=== PATIENT | female | born 1955 | race Caucasian/White ===

== ENCOUNTER → 2017-09-30 15:34 | Outpatient (CLI) | payer BC, SELFPAY ==
[2017-09-30 17:53] LABS: Absolute Neutrophil Count 3.3 X10^3/uL (2.0-7.7); Basophil# 0.06 X10^3/uL; Basophil% 1.1 % (0-1); Eosinophil# 0.17 X10^3/uL; Hematocrit 39.6 % (37-47); Hemoglobin 13.1 g/dl (12.0-15.0); Lymphocyte % 23.3 % (19-41); Mean Corp Hgb Conc 33.1 g/gl (32-36); Mean Corpuscular Volume 90.6 fL (81-99); Mean Platelet Vol. 10.6 fl (6.2-12.0); Monocyte# 0.73 X10^3/uL; Monocyte% 13.1 % (0-10); Neutrophil # 3.32 X10^3/uL (2.7-7.7); Neutrophil % 59.3 % (47-70); Platelet Count 213 K/mm3 (150-450); RBC Distribution Width SD 46.2 fl (35.1-43.9); Red Blood Count 4.37 M/mm3 (4.2-5.4); White Blood Count 5.6 K/mm3 (4.4-11.0)
[2017-09-30 17:55] LABS: POSITIVE COUNT NO; POSITIVE DIFFERENTIAL NO; POSITIVE MORPHOLOGY NO
[2017-09-30 17:57] LABS: AST(SGOT) 31 U/L (15-37); Alanine Aminotransfer ALT/SGPT 27 U/L (13-56); Albumin, Serum 3.8 g/dL (3.2-5.0); Alkaline Phosphatase 77 U/L (45-117); BUN 24 mg/dL (7-18); Creatinine, Serum 0.84 mg/dL (0.55-1.02); EST Glomerular Filtration Rate 73 mL/min (>60); Est Glom Filt Rate - Afr Amer 88 mL/min (>60); Globulin 3.4 g/dL (2.2-4.2); Protein, Total 7.2 g/dL (6.4-8.2)
== END ==
PROVIDERS: Family Provider Family Medicine; PCP Family Medicine; Visit Provider Internal Medicine Rheumatology
DX: M06.9 Rheumatoid arthritis, unspecified (principal)
CPT/HCPCS: 36415; 80076; 82565; 84520; 85025

== ENCOUNTER → 2017-12-22 16:16 | Outpatient (CLI) | payer BC, SELFPAY ==
[2017-12-22 17:34] LABS: Absolute Lymphocyte Count 1.52 X10^3/ul (0.83-4.51); Basophil# 0.04 X10^3/uL; Basophil% 0.7 % (0-1); Eosinophil# 0.21 X10^3/uL; Eosinophils% 3.9 % (0-5); Hemoglobin 13.2 g/dl (12.0-15.0); Lymphocyte # 1.52 X10^3/ul (4.0); Lymphocyte % 28.1 % (19-41); Mean Corp Hgb Conc 33.8 g/gl (32-36); Mean Corpuscular Hgb 30.4 pg (27.0-32.0); Mean Corpuscular Volume 89.9 fL (81-99); Mean Platelet Vol. 10.9 fl (6.2-12.0); Monocyte# 0.61 X10^3/uL; Monocyte% 11.3 % (0-10); Neutrophil # 3.03 X10^3/uL (2.7-7.7); Platelet Count 196 K/mm3 (150-450); RBC Distribution Width CV 14.2 % (11.6-14.6); RBC Distribution Width SD 45.9 fl (35.1-43.9); Red Blood Count 4.34 M/mm3 (4.2-5.4); White Blood Count 5.4 K/mm3 (4.4-11.0)
[2017-12-22 17:40] LABS: POSITIVE COUNT NO; POSITIVE DIFFERENTIAL NO; POSITIVE MORPHOLOGY NO
[2017-12-22 17:42] LABS: AST(SGOT) 30 U/L (15-37); Alanine Aminotransfer ALT/SGPT 37 U/L (13-56); Alkaline Phosphatase 85 U/L (45-117); BUN 25 mg/dL (7-18); Bilirubin, Direct 0.07 mg/dL (0.00-0.30); Creatinine, Serum 0.82 mg/dL (0.55-1.02); EST Glomerular Filtration Rate 75 mL/min (>60); Est Glom Filt Rate - Afr Amer 91 mL/min (>60); Globulin 3.4 g/dL (2.2-4.2); Protein, Total 7.4 g/dL (6.4-8.2)
== END ==
PROVIDERS: Family Provider Family Medicine; PCP Family Medicine; Visit Provider Internal Medicine Rheumatology
DX: M06.9 Rheumatoid arthritis, unspecified (principal)
CPT/HCPCS: 36415; 80076; 82565; 84520; 85025

== ENCOUNTER → 2018-04-24 15:42 | Outpatient (CLI) | payer BC, SELFPAY ==
--- NOTE | 2018-04-24 16:05 | BI_ITS ---
MAMMOGRAPHY - BILATERAL SCREENING REASON FOR EXAM: Female, 63 years old. Routine annual screening examination. PERTINENT HISTORY: Aunt with breast cancer. TECHNIQUE: Digital bilateral breast khai (3D mammographic acquisition) in the CC and MLO projections. 2-D mediolateral oblique (MLO) and craniocaudad (CC) views of both breasts were obtained. CAD: Full Field Digital Mammography with Computer Added Detection was performed. COMPARISON: Comparison is made with prior study dated March 11, 2017 and December 06, 2015. FINDINGS: Breast Composition: The breasts are heterogeneously dense, which may obscure small masses. Stable 1 cm x 2.1 cm nodular density in the inferior deep midportion of the left breast. Prior sonograms were obtained. No new mass lesion or clustered microcalcifications present. No other significant abnormalities are identified. There has been no significant change since the prior study. BI/SCREENING MAMM (CAD), BILAT IMPRESSION: Stable bilateral screening mammogram. Yearly follow-up mammogram recommended. (A) ASSESSMENT CATEGORY: BIRADS Category 2: Benign. A letter regarding these results will be sent to the patient by the facility within 30 days. Approximately 10% of breast cancers are not detected by mammography. A normal mammogram should not delay biopsy of a clinically suspicious abnormality. [id number] Electronically Signed: Johnny Acosta MD at 9:03 EDT Tel [phone], Service support ,
== END ==
PROVIDERS: Family Provider Family Medicine; PCP Family Medicine; Referring Provider Family Medicine; Visit Provider Family Medicine
DX: Z12.31 Encounter for screening mammogram for malignant neoplasm of breast (principal)
CPT/HCPCS: 77063; 77067

== ENCOUNTER 2018-06-01 16:20 | Outpatient (RCR) | payer BC, SELFPAY ==
[2018-06-01 17:53] LABS: Absolute Lymphocyte Count 1.79 X10^3/ul (0.83-4.51); Absolute Neutrophil Count 3.9 X10^3/uL (2.0-7.7); Basophil# 0.05 X10^3/uL; Basophil% 0.7 % (0-1); Hematocrit 41.2 % (37-47); Hemoglobin 13.7 g/dl (12.0-15.0); Lymphocyte # 1.79 X10^3/ul (4.0); Lymphocyte % 26.8 % (19-41); Mean Corp Hgb Conc 33.3 g/gl (32-36); Mean Corpuscular Hgb 30.5 pg (27.0-32.0); Mean Corpuscular Volume 91.8 fL (81-99); Mean Platelet Vol. 10.7 fl (6.2-12.0); Monocyte# 0.75 X10^3/uL; Monocyte% 11.2 % (0-10); Neutrophil # 3.87 X10^3/uL (2.7-7.7); Neutrophil % 58.2 % (47-70); Platelet Count 248 K/mm3 (150-450); RBC Distribution Width CV 14.4 % (11.6-14.6); RBC Distribution Width SD 47.2 fl (35.1-43.9); Red Blood Count 4.49 M/mm3 (4.2-5.4); White Blood Count 6.7 K/mm3 (4.4-11.0)
[2018-06-01 17:54] LABS: POSITIVE COUNT NO; POSITIVE DIFFERENTIAL NO; POSITIVE MORPHOLOGY NO
[2018-06-01 18:06] LABS: AST(SGOT) 30 U/L (15-37); Alanine Aminotransfer ALT/SGPT 31 U/L (13-56); Albumin, Serum 3.9 g/dL (3.2-5.0); Alkaline Phosphatase 93 U/L (45-117); BUN 32 mg/dL (7-18); Bilirubin, Direct 0.08 mg/dL (0.00-0.30); Creatinine, Serum 0.99 mg/dL (0.55-1.02); EST Glomerular Filtration Rate 60 mL/min (>60); Est Glom Filt Rate - Afr Amer 73 mL/min (>60); Globulin 3.5 g/dL (2.2-4.2); Protein, Total 7.4 g/dL (6.4-8.2)
== END 2018-06-01 17:00 | disposition home or self-care (01) ==
LOC: MTLAB 16:20
PROVIDERS: Family Provider Family Medicine; PCP Family Medicine; Referring Provider Internal Medicine Rheumatology; Visit Provider Internal Medicine Rheumatology
DX: M06.9 Rheumatoid arthritis, unspecified (principal)
CPT/HCPCS: 36415; 80076; 82565; 84520; 85025

== ENCOUNTER → 2018-09-22 16:54 | Outpatient (CLI) | payer BC, SELFPAY ==
[2018-09-22 18:02] LABS: Absolute Lymphocyte Count 1.81 X10^3/ul (0.83-4.51); Absolute Neutrophil Count 2.6 X10^3/uL (2.0-7.7); Basophil# 0.05 X10^3/uL; Basophil% 0.9 % (0-1); Eosinophil# 0.17 X10^3/uL; Eosinophils% 3.2 % (0-5); Hematocrit 42.3 % (37-47); Hemoglobin 13.7 g/dl (12.0-15.0); Lymphocyte # 1.81 X10^3/ul (4.0); Lymphocyte % 34.1 % (19-41); Mean Corp Hgb Conc 32.4 g/gl (32-36); Mean Corpuscular Volume 92.6 fL (81-99); Mean Platelet Vol. 11.1 fl (6.2-12.0); Monocyte# 0.68 X10^3/uL; Monocyte% 12.8 % (0-10); Platelet Count 197 K/mm3 (150-450); RBC Distribution Width CV 14.4 % (11.6-14.6); RBC Distribution Width SD 47.8 fl (35.1-43.9); Red Blood Count 4.57 M/mm3 (4.2-5.4); White Blood Count 5.3 K/mm3 (4.4-11.0)
[2018-09-22 18:18] LABS: POSITIVE COUNT NO; POSITIVE DIFFERENTIAL NO; POSITIVE MORPHOLOGY NO
[2018-09-22 18:28] LABS: AST(SGOT) 24 U/L (15-37); Alanine Aminotransfer ALT/SGPT 31 U/L (13-56); Albumin, Serum 4.1 g/dL (3.2-5.0); Alkaline Phosphatase 87 U/L (45-117); BUN 26 mg/dL (7-18); Creatinine, Serum 0.81 mg/dL (0.55-1.02); EST Glomerular Filtration Rate 75 mL/min (>60); Est Glom Filt Rate - Afr Amer 91 mL/min (>60); Globulin 3.3 g/dL (2.2-4.2); Protein, Total 7.4 g/dL (6.4-8.2)
== END ==
PROVIDERS: Family Provider Family Medicine; PCP Family Medicine; Referring Provider Internal Medicine Rheumatology; Visit Provider Internal Medicine Rheumatology
DX: M06.9 Rheumatoid arthritis, unspecified (principal)
CPT/HCPCS: 36415; 80076; 82565; 84520; 85025

== ENCOUNTER → 2018-12-08 | Outpatient (CLI) | payer BC, SELFPAY ==
[2018-12-08 17:57] LABS: Absolute Lymphocyte Count 1.89 X10^3/ul (0.83-4.51); Absolute Neutrophil Count 3.7 X10^3/uL (2.0-7.7); Basophil# 0.05 X10^3/uL; Basophil% 0.8 % (0-1); Eosinophil# 0.36 X10^3/uL; Eosinophils% 5.4 % (0-5); Hematocrit 41.4 % (37-47); Hemoglobin 13.9 g/dl (12.0-15.0); Lymphocyte # 1.89 X10^3/ul (4.0); Lymphocyte % 28.4 % (19-41); Mean Corp Hgb Conc 33.6 g/gl (32-36); Mean Corpuscular Hgb 29.9 pg (27.0-32.0); Mean Platelet Vol. 10.4 fl (6.2-12.0); Monocyte# 0.64 X10^3/uL; Monocyte% 9.6 % (0-10); Neutrophil # 3.71 X10^3/uL (2.7-7.7); Neutrophil % 55.8 % (47-70); Platelet Count 248 K/mm3 (150-450); RBC Distribution Width CV 14.5 % (11.6-14.6); RBC Distribution Width SD 46.5 fl (35.1-43.9); Red Blood Count 4.65 M/mm3 (4.2-5.4); White Blood Count 6.7 K/mm3 (4.4-11.0)
[2018-12-08 18:06] LABS: POSITIVE COUNT NO; POSITIVE DIFFERENTIAL NO; POSITIVE MORPHOLOGY NO
[2018-12-08 18:07] LABS: AST(SGOT) 27 U/L (15-37); Alanine Aminotransfer ALT/SGPT 40 U/L (13-56); Albumin, Serum 3.7 g/dL (3.2-5.0); Alkaline Phosphatase 79 U/L (45-117); BUN 27 mg/dL (7-18); Bilirubin, Direct 0.11 mg/dL (0.00-0.30); Creatinine, Serum 0.81 mg/dL (0.55-1.02); EST Glomerular Filtration Rate 75 mL/min (>60); Est Glom Filt Rate - Afr Amer 91 mL/min (>60); Globulin 3.7 g/dL (2.2-4.2); Protein, Total 7.4 g/dL (6.4-8.2)
== END | disposition home or self-care (01) ==
LOC: MTLAB 16:48
PROVIDERS: Family Provider Family Medicine; PCP Family Medicine; Referring Provider Internal Medicine Rheumatology; Visit Provider Internal Medicine Rheumatology
DX: M06.9 Rheumatoid arthritis, unspecified (principal)
CPT/HCPCS: 36415; 80076; 82565; 84520; 85025

== ENCOUNTER → 2019-04-06 16:52 | Outpatient (CLI) | payer BC, SELFPAY ==
[2019-04-06 17:47] LABS: Absolute Lymphocyte Count 1.82 X10^3/uL (0.83-4.51); Absolute Neutrophil Count 2.5 X10^3/uL (2.0-7.7); Basophil# 0.04 X10^3/uL; Basophil% 0.8 % (0-1); Eosinophil# 0.19 X10^3/uL; Eosinophils% 3.7 % (0-5); Hematocrit 42.1 % (37-47); Hemoglobin 13.8 g/dL (12.0-15.0); Lymphocyte # 1.82 X10^3/ul (4.0); Lymphocyte % 35.6 % (19-41); Mean Corp Hgb Conc 32.8 g/dL (32-36); Mean Corpuscular Hgb 30.1 pg (27.0-32.0); Mean Corpuscular Volume 91.9 fL (81-99); Mean Platelet Vol. 10.8 fl (6.2-12.0); Monocyte# 0.57 X10^3/uL; Monocyte% 11.2 % (0-10); NRBC Flagged by Analyzer 0 % (0-5); Neutrophil # 2.48 X10^3/uL (2.7-7.7); Neutrophil % 48.5 % (47-70); Platelet Count 188 K/mm3 (150-450); RBC Distribution Width CV 13.7 % (11.6-14.6); RBC Distribution Width SD 45.9 fl (35.1-43.9); Red Blood Count 4.58 M/mm3 (4.2-5.4); White Blood Count 5.1 K/mm3 (4.4-11.0)
[2019-04-06 18:24] LABS: AST(SGOT) 31 U/L (15-37); Alanine Aminotransfer ALT/SGPT 40 U/L (13-56); Albumin, Serum 4.2 g/dL (3.2-5.0); Alkaline Phosphatase 79 U/L (45-117); BUN 24 mg/dL (7-18); Bilirubin, Direct 0.11 mg/dL (0.00-0.30); Creatinine, Serum 0.85 mg/dL (0.55-1.02); EST Glomerular Filtration Rate 72 mL/min (>60); Est Glom Filt Rate - Afr Amer 87 mL/min (>60); Globulin 3.4 g/dL (2.2-4.2); Protein, Total 7.6 g/dL (6.4-8.2)
== END ==
PROVIDERS: Family Provider Family Medicine; PCP Family Medicine; Referring Provider Internal Medicine Rheumatology; Visit Provider Internal Medicine Rheumatology
DX: M06.9 Rheumatoid arthritis, unspecified (principal)
CPT/HCPCS: 36415; 80076; 82565; 84520; 85025

== ENCOUNTER → 2019-06-08 07:08 | Outpatient (CLI) | payer BC, SELFPAY ==
--- NOTE | 2019-06-08 07:09 | BI_ITS ---
MAMMOGRAPHY - BILATERAL SCREENING REASON FOR EXAM: Female, 64 years old. Routine annual screening examination. PERTINENT HISTORY: Aunt with breast cancer. Remote left stereotactic breast biopsy. TECHNIQUE: Digital bilateral breast ray (3D mammographic acquisition) in the CC and MLO projections. 2-D mediolateral oblique (MLO) and craniocaudad (CC) views of both breasts were obtained. CAD: Full Field Digital Mammography with Computer Added Detection was performed. COMPARISON: Comparison is made with prior study dated April 24, 2018 and March 11, 2017 FINDINGS: Breast Composition: The breasts are heterogeneously dense, which may obscure small masses. There are no dominant masses or suspicious calcifications. Stable 1.7 cm x 1.4 cm rounded soft tissue density with central decreased density suggestive of fat in the deep midportion of the left breast as seen on the craniocaudad view. This most likely represents a site of prior biopsy. No other significant abnormalities are identified. There has been no significant change since the prior study. BI/SCREEN MAMM (CAD) W/RAY BILAT IMPRESSION: Stable bilateral screening mammogram. Yearly follow-up mammogram recommended. (A) ASSESSMENT CATEGORY: BIRADS Category 2: Benign. A letter regarding these results will be sent to the patient by the facility within 30 days. Approximately 10% of breast cancers are not detected by mammography. A normal mammogram should not delay biopsy of a clinically suspicious abnormality. [id number] Electronically Signed: Johnny Acosta, at 8:37 EST , Service support ,
[2019-06-08 10:11] LABS: Absolute Lymphocyte Count 1.42 X10^3/uL (0.83-4.51); Absolute Neutrophil Count 2.8 X10^3/uL (2.0-7.7); Basophil# 0.04 X10^3/uL; Basophil% 0.8 % (0-1); Eosinophil# 0.21 X10^3/uL; Eosinophils% 4.2 % (0-5); Hemoglobin 13.5 g/dL (12.0-15.0); Lymphocyte # 1.42 X10^3/ul (4.0); Lymphocyte % 28.2 % (19-41); Mean Corp Hgb Conc 32.9 g/dL (32-36); Mean Corpuscular Hgb 30.8 pg (27.0-32.0); Mean Corpuscular Volume 93.4 fL (81-99); Mean Platelet Vol. 10.5 fl (6.2-12.0); Monocyte# 0.56 X10^3/uL; Monocyte% 11.1 % (0-10); NRBC Flagged by Analyzer 0 % (0-5); Neutrophil # 2.79 X10^3/uL (2.7-7.7); Neutrophil % 55.5 % (47-70); Platelet Count 229 K/mm3 (150-450); RBC Distribution Width CV 13.8 % (11.6-14.6); RBC Distribution Width SD 47.1 fl (35.1-43.9); Red Blood Count 4.39 M/mm3 (4.2-5.4)
[2019-06-08 10:41] LABS: AST(SGOT) 26 U/L (15-37); Alanine Aminotransfer ALT/SGPT 33 U/L (13-56); Albumin, Serum 3.9 g/dL (3.2-5.0); Alkaline Phosphatase 74 U/L (45-117); BUN 23 mg/dL (7-18); Bilirubin, Direct 0.12 mg/dL (0.00-0.30); Creatinine, Serum 0.78 mg/dL (0.55-1.02); EST Glomerular Filtration Rate 79 mL/min (>60); Est Glom Filt Rate - Afr Amer 95 mL/min (>60); Globulin 3.4 g/dL (2.2-4.2); Protein, Total 7.3 g/dL (6.4-8.2)
== END ==
PROVIDERS: Internal Medicine Rheumatology; Family Provider Family Medicine; PCP Family Medicine; Referring Provider Family Medicine; Visit Provider Family Medicine
DX: Z00.00 Encounter for general adult medical examination without abnormal findings (principal); Z12.31 Encounter for screening mammogram for malignant neoplasm of breast; M06.9 Rheumatoid arthritis, unspecified
CPT/HCPCS: 36415; 77063; 77067; 80076; 82565; 84520; 85025

== ENCOUNTER → 2020-01-17 12:22 | Outpatient (CLI) | payer BC, SELFPAY ==
--- NOTE | 2020-01-17 12:26 | RAD_ITS ---
STUDY: X-RAY - LEFT HAND REASON FOR EXAM: Female, 64 years old. ot rheumatoid arthritis with rheumatoid factor mult site TECHNIQUE: 3 view(s) of the hand. COMPARISON: None. FINDINGS: The bones are diffusely demineralized. The radio scaphoid joint space and the relationship between the distal radius and ulna are unremarkable. The intracarpal joint spaces are well-maintained. There is significant joint space narrowing at the base of the thumb with subchondral cyst formation in the trapezium and first metacarpal. Mild degenerative changes in the first fourth and fifth metacarpophalangeal joints with moderate second and third MCP joint narrowing. Mild interphalangeal joint degenerative changes in the thumb and in the PIP and DIP joints of the second to the fifth fingers except at the PIP joint of the fifth digit which shows significant narrowing and: Deformity of the distal aspect of the proximal phalanx and proximal aspect of the middle phalanx. No demonstrated fracture or suspicious soft tissue swelling RAD/Hand 2 Views IMPRESSION: Degenerative joint disease of the hand, as described above. Electronically Signed: Sebas Ritter MD at 7:49 EDT , Service support ,
--- NOTE | 2020-01-17 12:26 | RAD_ITS ---
STUDY: X-RAY - RIGHT HAND REASON FOR EXAM: Female, 64 years old. oth rheumatoid arthritis with rheumatoid factor mult site TECHNIQUE: 3 view(s) of the hand. COMPARISON: None. FINDINGS: The bony structures are diffusely demineralized. Severe narrowing of the second and third MCP joints noted with milder secondary osteophytic changes. The remaining MCP joint spaces are preserved. The DIP joints throughout the hand are mildly narrowed. Minor cortical spurring is present as well as a small periarticular erosion in the third DIP joint space. Mild cortical spurring is also present at the base of the middle phalanx of the fifth digit. The PIP joint spaces are preserved. A tiny ossicle is adjacent to the neck of the proximal talus of the third digit. Moderate soft tissue swelling is present. Mild radial deviation is noted in the second and fifth digits. No visualized acute fracture. Normal radiocarpal articulation. RAD/Hand 2 Views IMPRESSION: Degenerative joint disease of the hand, as described above. Electronically Signed: Jeremías Larose MD at 20:33 EDT , Service support ,
[2020-01-17 15:33] LABS: Absolute Lymphocyte Count 1.63 X10^3/uL (0.83-4.51); Absolute Neutrophil Count 2.3 X10^3/uL (2.0-7.7); Basophil# 0.06 X10^3/uL; Basophil% 1.2 % (0-1); Eosinophil# 0.18 X10^3/uL; Eosinophils% 3.7 % (0-5); Hematocrit 40.7 % (37-47); Hemoglobin 13.3 g/dL (12.0-15.0); Lymphocyte # 1.63 X10^3/ul (4.0); Lymphocyte % 33.5 % (19-41); Mean Corp Hgb Conc 32.7 g/dL (32-36); Mean Corpuscular Hgb 31.7 pg (27.0-32.0); Mean Corpuscular Volume 96.9 fL (81-99); Mean Platelet Vol. 10.8 fl (6.2-12.0); Monocyte# 0.69 X10^3/uL; Monocyte% 14.2 % (0-10); NRBC Flagged by Analyzer 0 % (0-5); Neutrophil # 2.29 X10^3/uL (2.7-7.7); Neutrophil % 47.2 % (47-70); Platelet Count 208 K/mm3 (150-450); RBC Distribution Width CV 14.2 % (11.6-14.6); RBC Distribution Width SD 49.4 fl (35.1-43.9); White Blood Count 4.9 K/mm3 (4.4-11.0)
[2020-01-17 16:14] LABS: AST(SGOT) 28 U/L (15-37); Alanine Aminotransfer ALT/SGPT 34 U/L (13-56); Albumin, Serum 3.8 g/dL (3.2-5.0); BUN 22 mg/dL (7-18); CRP < 2.90 mg/L (0.0-3.0); Creatinine, Serum 0.72 mg/dL (0.55-1.02); EST Glomerular Filtration Rate 87 mL/min (>60); Est Glom Filt Rate - Afr Amer 105 mL/min (>60)
[2020-01-18 09:11] LABS: Hepatitis B Surface Antibody Reactive; Hepatitis B Surface Antigen Non-Reactive (Nonreactive)
[2020-01-19 09:35] LABS: Hepatitis B Core Ab Total Negative (Negative)
== END ==
PROVIDERS: PCP Family Medicine; Referring Provider Internal Medicine Rheumatology; Visit Provider Internal Medicine Rheumatology
DX: M05.89 Other rheumatoid arthritis with rheumatoid factor of multiple sites (principal); M19.042 Primary osteoarthritis, left hand; M19.041 Primary osteoarthritis, right hand
CPT/HCPCS: 36415; 73120; 82040; 82565; 84450; 84460; 84520; 85025; 86140; 86704; 86706; 87340

== ENCOUNTER → 2020-04-17 16:47 | Outpatient (CLI) | payer BC, SELFPAY | PROVIDERS: PCP Family Medicine; Visit Provider Family Medicine | DX: R05 Cough (principal) | CPT/HCPCS: 87635; U0003 ==

== ENCOUNTER → 2020-05-03 16:23 | Outpatient (CLI) | payer BC, SELFPAY | PROVIDERS: PCP Family Medicine; Visit Provider Family Medicine | DX: Z86.19 Personal history of other infectious and parasitic diseases (principal) | CPT/HCPCS: 87635; U0003 ==

== ENCOUNTER → 2020-05-08 16:13 | Outpatient (CLI) | payer BC, SELFPAY ==
[2020-05-08 17:45] LABS: Absolute Lymphocyte Count 1.83 X10^3/uL (0.83-4.51); Absolute Neutrophil Count 3.8 X10^3/uL (2.0-7.7); Basophil# 0.06 X10^3/uL; Basophil% 0.9 % (0-1); Eosinophil# 0.17 X10^3/uL; Eosinophils% 2.4 % (0-5); Hematocrit 37.6 % (37-47); Lymphocyte # 1.83 X10^3/ul (4.0); Lymphocyte % 26.1 % (19-41); Mean Corp Hgb Conc 31.9 g/dL (32-36); Mean Corpuscular Hgb 29.8 pg (27.0-32.0); Mean Corpuscular Volume 93.3 fL (81-99); Mean Platelet Vol. 10.1 fl (6.2-12.0); Monocyte# 1.11 X10^3/uL; Monocyte% 15.8 % (0-10); NRBC Flagged by Analyzer 0 % (0-5); Neutrophil # 3.79 X10^3/uL (2.7-7.7); Neutrophil % 54.1 % (47-70); Platelet Count 363 K/mm3 (150-450); RBC Distribution Width CV 13.7 % (11.6-14.6); RBC Distribution Width SD 46.8 fl (35.1-43.9); Red Blood Count 4.03 M/mm3 (4.2-5.4)
[2020-05-08 18:05] LABS: AST(SGOT) 26 U/L (15-37); Alanine Aminotransfer ALT/SGPT 37 U/L (13-56); Albumin, Serum 3.3 g/dL (3.2-5.0); BUN 23 mg/dL (7-18); Creatinine, Serum 0.75 mg/dL (0.55-1.02); EST Glomerular Filtration Rate 82 mL/min (>60); Est Glom Filt Rate - Afr Amer 99 mL/min (>60)
== END ==
PROVIDERS: PCP Family Medicine; Referring Provider Internal Medicine Rheumatology; Visit Provider Internal Medicine Rheumatology
DX: M05.89 Other rheumatoid arthritis with rheumatoid factor of multiple sites (principal)
CPT/HCPCS: 36415; 82040; 82565; 84450; 84460; 84520; 85025; 86140

== ENCOUNTER → 2020-07-28 14:33 | Outpatient (CLI) | payer BC, SELFPAY ==
[2020-07-28 17:40] LABS: Absolute Lymphocyte Count 1.49 X10^3/uL (0.83-4.51); Basophil# 0.06 X10^3/uL; Basophil% 1.1 % (0-1); Eosinophils% 3.7 % (0-5); Hematocrit 41.2 % (37-47); Hemoglobin 13.3 g/dL (12.0-15.0); Lymphocyte # 1.49 X10^3/ul (4.0); Lymphocyte % 27.5 % (19-41); Mean Corp Hgb Conc 32.3 g/dL (32-36); Mean Corpuscular Hgb 30.1 pg (27.0-32.0); Mean Corpuscular Volume 93.2 fL (81-99); Monocyte% 12.9 % (0-10); NRBC Flagged by Analyzer 0 % (0-5); Neutrophil # 2.96 X10^3/uL (2.7-7.7); Neutrophil % 54.6 % (47-70); Platelet Count 238 K/mm3 (150-450); RBC Distribution Width SD 48.1 fl (35.1-43.9); Red Blood Count 4.42 M/mm3 (4.2-5.4); White Blood Count 5.4 K/mm3 (4.4-11.0)
[2020-07-28 17:53] LABS: AST(SGOT) 30 U/L (15-37); Alanine Aminotransfer ALT/SGPT 37 U/L (13-56); Albumin, Serum 3.6 g/dL (3.2-5.0); Alkaline Phosphatase 79 U/L (45-117); Anion Gap 7 (5-15); BUN 22 mg/dL (7-18); BUN/Creat Ratio 33.7 RATIO (10-20); CRP < 2.90 mg/L (0.0-3.0); Calcium,Total 9.2 mg/dL (8.5-10.1); Chloride 105 mmol/L (98-107); Creatinine, Serum 0.65 mg/dL (0.55-1.02); EST Glomerular Filtration Rate 97 mL/min (>60); Est Glom Filt Rate - Afr Amer 117 mL/min (>60); Globulin 3.6 g/dL (2.2-4.2); Glucose 68 mg/dL (74-106); Potassium 3.9 mmol/L (3.5-5.1); Protein, Total 7.2 g/dL (6.4-8.2); Sodium Level 137 mmol/L (136-145)
== END ==
PROVIDERS: PCP Family Medicine; Referring Provider Internal Medicine Rheumatology; Visit Provider Internal Medicine Rheumatology
DX: M05.89 Other rheumatoid arthritis with rheumatoid factor of multiple sites (principal)
CPT/HCPCS: 36415; 80053; 85025; 86140

== ENCOUNTER → 2020-08-24 07:16 | Outpatient (CLI) | payer BC, SELFPAY ==
--- NOTE | 2020-08-24 07:17 | BI_ITS ---
MAMMOGRAPHY - BILATERAL SCREENING REASON FOR EXAM: Female, 65 years old. Routine annual screening examination. PERTINENT HISTORY: Aunt with breast cancer. Remote left stereotactic breast biopsy. TECHNIQUE: Digital bilateral breast prudencio (3D mammographic acquisition) in the CC and MLO projections. 2-D mediolateral oblique (MLO) and craniocaudad (CC) views of both breasts were obtained. CAD: Full Field Digital Mammography with Computer Added Detection was performed. COMPARISON: Comparison is made with prior study dated 06/08/2019 and 04/24/2018. FINDINGS: Breast Composition: The breasts are heterogeneously dense, which may obscure small masses. Stable 1.7 cm x 1.4 cm rounded soft tissue density with central decreased density in the deep inferior mid portion of the left breast as seen on the craniocaudad view. No other significant abnormalities are identified. There has been no significant change since the prior study. BI/Bilat Brst Screen Prudencio Add-On IMPRESSION: Stable bilateral screening mammogram. Yearly follow-up mammogram recommended. (A) ASSESSMENT CATEGORY: BIRADS Category 2: Benign. A letter regarding these results will be sent to the patient by the facility within 30 days. Approximately 10% of breast cancers are not detected by mammography. A normal mammogram should not delay biopsy of a clinically suspicious abnormality. [id number] Electronically Signed: Johnny Acosta MD at 8:34 EST , Service support ,
== END ==
PROVIDERS: PCP Family Medicine; Referring Provider Family Medicine; Visit Provider Family Medicine
DX: Z00.00 Encounter for general adult medical examination without abnormal findings (principal); Z12.31 Encounter for screening mammogram for malignant neoplasm of breast
CPT/HCPCS: 77063; 77067

== ENCOUNTER → 2020-11-16 15:52 | Outpatient (CLI) | payer BC, SELFPAY ==
[2020-11-16 17:30] LABS: Absolute Neutrophil Count 3.1 X10^3/uL (2.0-7.7); Basophil# 0.05 X10^3/uL; Basophil% 0.9 % (0-1); Eosinophils% 3.5 % (0-5); Hematocrit 39.6 % (37-47); Hemoglobin 13.2 g/dL (12.0-15.0); Lymphocyte % 26.1 % (19-41); Mean Corp Hgb Conc 33.3 g/dL (32-36); Mean Corpuscular Hgb 30.8 pg (27.0-32.0); Mean Corpuscular Volume 92.5 fL (81-99); Mean Platelet Vol. 10.4 fl (6.2-12.0); Monocyte# 0.84 X10^3/uL; Monocyte% 14.6 % (0-10); NRBC Flagged by Analyzer 0 % (0-5); Neutrophil # 3.14 X10^3/uL (2.7-7.7); Neutrophil % 54.6 % (47-70); Platelet Count 232 K/mm3 (150-450); RBC Distribution Width CV 14.1 % (11.6-14.6); RBC Distribution Width SD 47.7 fl (35.1-43.9); Red Blood Count 4.28 M/mm3 (4.2-5.4); White Blood Count 5.8 K/mm3 (4.4-11.0)
[2020-11-16 17:45] LABS: AST(SGOT) 27 U/L (15-37); Alanine Aminotransfer ALT/SGPT 35 U/L (13-56); Albumin, Serum 3.7 g/dL (3.2-5.0); BUN 25 mg/dL (7-18); CRP 4.79 mg/L (0.0-3.0); Creatinine, Serum 0.79 mg/dL (0.55-1.02); EST Glomerular Filtration Rate 78 mL/min (>60); Est Glom Filt Rate - Afr Amer 94 mL/min (>60)
== END ==
PROVIDERS: PCP Family Medicine; Referring Provider Internal Medicine Rheumatology; Visit Provider Internal Medicine Rheumatology
DX: M05.89 Other rheumatoid arthritis with rheumatoid factor of multiple sites (principal)
CPT/HCPCS: 36415; 82040; 82565; 84450; 84460; 84520; 85025; 86140

== ENCOUNTER → 2020-12-06 16:02 | Outpatient (CLI) | payer BC, SELFPAY ==
--- NOTE | 2020-12-06 16:05 | RAD_ITS ---
STUDY: X-RAY - LEFT KNEE REASON FOR EXAM: Female, 65 years old. PAIN TECHNIQUE: 2 view(s) of the knee. COMPARISON: None. FINDINGS: Normal visualized distal femur. Normal visualized proximal tibia and fibula. Normal proximal tibiofibular articulation. There is mild degenerative arthrosis of the medial femorotibial compartment. Normal lateral femorotibial compartment. Normal patellofemoral articulation. The soft tissue structures are unremarkable. RAD/Knee 1 or 2 Views IMPRESSION: Degenerative arthrosis. Electronically Signed: Pancho Petersen MD at 10:00 EDT Tel , Service support ,
--- NOTE | 2020-12-06 16:05 | RAD_ITS ---
EXAM: XR RIGHT KNEE, 1 OR 2 VIEWS : 1955 CLINICAL INDICATION: PAIN TECHNIQUE: Frontal and/or lateral views of the right knee. This report was created using [employer] report generation technology. COMPARISON: None. FINDINGS: BONES/JOINTS: Unremarkable. No acute fracture. No subluxation. Normal alignment. Preservation of the joint space. No sclerotic or destructive changes observed. SOFT TISSUES: Unremarkable. No soft tissue swelling or gas. No radiopaque foreign body. RAD/Knee 1 or 2 Views IMPRESSION: Negative right knee x-rays. at 0950 Reported and signed by: Narendra Pitt MD Electronically Signed: Narendra Pitt MD at 9:49 EDT Tel , Service support ,
== END ==
PROVIDERS: PCP Family Medicine; Referring Provider Internal Medicine Rheumatology; Visit Provider Internal Medicine Rheumatology
DX: M25.562 Pain in left knee (principal); M25.561 Pain in right knee
CPT/HCPCS: 73560

== ENCOUNTER → 2021-02-23 | Outpatient (CLI) | payer BC, SELFPAY | END | disposition home or self-care (01) | PROVIDERS: Visit Provider Family Medicine | DX: Z20.822 Contact with and (suspected) exposure to COVID-19 (principal) | CPT/HCPCS: 87635; U0005; U0003 ==

== ENCOUNTER → 2021-03-08 16:20 | Outpatient (CLI) | payer BC, SELFPAY ==
[2021-03-08 18:26] LABS: Absolute Lymphocyte Count 1.71 X10^3/uL (0.83-4.51); Absolute Neutrophil Count 2.4 X10^3/uL (2.0-7.7); Basophil# 0.06 X10^3/uL; Basophil% 1.2 % (0-1); Eosinophil# 0.11 X10^3/uL; Eosinophils% 2.2 % (0-5); Hematocrit 39.4 % (37-47); Hemoglobin 12.9 g/dL (12.0-15.0); Lymphocyte # 1.71 X10^3/ul (0.83-4.51); Lymphocyte % 34.8 % (19-41); Mean Corp Hgb Conc 32.7 g/dL (32-36); Mean Corpuscular Hgb 30.7 pg (27.0-32.0); Mean Corpuscular Volume 93.8 fL (81-99); Mean Platelet Vol. 10.9 fl (6.2-12.0); Monocyte# 0.66 X10^3/uL; Monocyte% 13.4 % (0-10); NRBC Flagged by Analyzer 0 % (0-5); Neutrophil # 2.36 X10^3/uL (2.7-7.7); Platelet Count 193 K/mm3 (150-450); RBC Distribution Width SD 47.6 fl (35.1-43.9); White Blood Count 4.9 K/mm3 (4.4-11.0)
[2021-03-08 18:48] LABS: AST(SGOT) 31 U/L (15-37); Alanine Aminotransfer ALT/SGPT 42 U/L (13-56); Albumin, Serum 3.6 g/dL (3.2-5.0); BUN 18 mg/dL (7-18); CRP < 2.90 mg/L (0.0-3.0); Creatinine, Serum 0.67 mg/dL (0.55-1.02); EST Glomerular Filtration Rate 94 mL/min (>60); Est Glom Filt Rate - Afr Amer 114 mL/min (>60)
== END ==
PROVIDERS: PCP Family Medicine; Referring Provider Internal Medicine Rheumatology; Visit Provider Internal Medicine Rheumatology
DX: M05.89 Other rheumatoid arthritis with rheumatoid factor of multiple sites (principal)
CPT/HCPCS: 36415; 82040; 82565; 84450; 84460; 84520; 85025; 86140

== ENCOUNTER 2021-06-04 14:45 | Observation (INO) | payer BC, SELFPAY ==
[2021-06-04] VITALS (13 sets, daily range): BP systolic 68–160; BP diastolic 59–97; PULSE 50–94; RESP 13–21; TEMP 36.1–36.8; O2SAT 94–99; BMI 23.0; BMI 25.7
--- NOTE | 2021-06-04 15:09 | EKG12_ITS ---
Test Reason : CP Blood Pressure : / mmHG Vent. Rate : 059 BPM Atrial Rate : 059 BPM P-R Int : 172 ms QRS Dur : 078 ms QT Int : 408 ms P-R-T Axes : 061 -15 033 degrees QTc Int : 403 ms Sinus bradycardia Nonspecific ST abnormality Abnormal ECG Confirmed by MYLA GOMEZ, LATOYA ([id number]), photography editor VLADIMIR FRANKLIN ([id number]) on 06/06/2021 10:45:47 AM Referred By: WM/JEANA Confirmed By:LATOYA LANZA MD
--- NOTE | 2021-06-04 15:10 | EDS_ITS ---
HPI History of Present Illness Chief Complaint: Chest Pain Informant: patient Narrative Narrative: Patient presents after an episode of full body tingling and anterior chest discomfort. She was at the dentist having a crown replaced. She felt fine. She got an injection of anesthetic in her mouth. Very quickly after that she got tingling over her entire body. She does not know how long that lasted but it is gone now. Sometime after this she got some anterior chest discomfort. It did not radiate. It was pressure. She did not have nausea vomiting diaphoresis or shortness of breath with this. She is still having the symptoms but they are better. She has never had this before. She has no cardiac history or prior evaluations. She has had no recent travel surgery immobilization or family or personal history of DVT or PE. She is a non-smoker, no diabetes high blood pressure high cholesterol. Nothing specifically makes this better or worse. [facility] Medical History (Updated 06/05/21 @ 00:[address] Manuel Espino MD) Migraine Osteoporosis Rheumatoid arthritis Home Medications calcium carbonate 750 mg PO TID 08/02/15 [History Last Taken 06/03/21] etanercept [Enbrel] 50 mg SQ FR 08/02/15 [History Last Taken 06/01/21] folic acid 1 mg PO DAILY@0800 08/02/15 [History Last Taken 06/03/21] methotrexate sodium 20 mg PO MO 08/02/15 [History Last Taken 05/28/21] amitriptyline 100 mg PO QHS 06/04/21 [History Last Taken Unknown] divalproex 250 mg PO BREAKFAST 06/04/21 [History Last Taken 06/04/21] divalproex 500 mg PO QHS 06/04/21 [History Last Taken 06/03/21] propranolol 20 mg PO BREAKFAST 06/04/21 [History Last Taken 06/04/21] propranolol 40 mg PO QHS 06/04/21 [History Last Taken 06/03/21] Allergy/AdvReac Type Severity Reaction Status Date / Time etodolac [From [facility]] Allergy Diarrhea Verified 06/04/21 14:48 Family History (Updated 06/04/21 @ 19:[address] Jorge Soto MD) Other Cancer Heart disease Surgical History History of appendectomy Social History Smoking Status: Never smoker ROS ROS ED Constitutional Constitutional ED: Denies fever(s) Eyes Eyes: Denies change in vision ENT ENT ED: Denies rhinorrhea or sore throat Cardiovascular Cardiovascular: Reports chest pain; Denies palpitations or racing heartbeat Respiratory/Chest Respiratory/Chest: Denies cough, dyspnea or sputum Gastrointestinal Gastrointestinal: Denies abdominal pain, nausea or vomiting Musculoskeletal Musculoskeletal: Denies arthralgias, back pain or neck pain Integumentary Denies rash Neurologic Neurologic: Reports paresthesias; Denies headache(s) or weakness Endocrine Endocrinology: Denies polydipsia or polyuria Hematologic/Lymphatic Hematologic/Lymphatic: Denies easy bleeding or easy bruising Allergic/Immunologic Allergic/Immunologic ED: Denies urticaria EXAM Physical Exam Const Vital Signs: 06/04/21 14:45 06/04/21 14:50 06/04/21 15:03 Temperature 97 F L Temperature Source Temporal Pulse Rate 55 L 50 L 62 Respiratory Rate 17 15 15 Respiratory Effort Normal Non-Labored Blood Pressure 122/83 H 68/59 L 120/82 H Blood Pressure Mean 96 62 94 Pulse Ox 99 94 94 Oxygen Delivery Method Room Air Room Air Room Air 06/04/21 15:11 06/04/21 16:00 06/04/21 17:00 Temperature Temperature Source Pulse Rate 56 L 59 L Respiratory Rate 13 16 Respiratory Effort Blood Pressure 160/97 H 153/89 H Blood Pressure Mean 118 110 Pulse Ox 96 97 Oxygen Delivery Method Room Air Room Air Room Air 06/04/21 18:07 06/04/21 18:48 06/04/21 18:54 Temperature Temperature Source Pulse Rate 57 L 60 60 Respiratory Rate 16 Respiratory Effort Blood Pressure 159/93 H 144/93 H 144/93 H Blood Pressure Mean 115 Pulse Ox 95 Oxygen Delivery Method Room Air 06/04/21 19:01 Temperature Temperature Source Pulse Rate Respiratory Rate Respiratory Effort Blood Pressure 93/61 Blood Pressure Mean 71 Pulse Ox Oxygen Delivery Method Positive well nourished and well developed General Appearance ED: well developed and NAD HEENT Reports moist mucous membranes normocephalic and atraumatic Eyes General Eye ED: Negative for pale conjunctiva or scleral icterus Neck no JVD Chest Wall inspection of chest normal Resp normal respiratory effort and clear to auscultation bilaterally Resp Narrative: No pain or discomfort with a deep breath or palpation. Effort and Inspection: Negative for respiratory distress or pain with movement Auscultation: Negative for rales, rhonchi, wheezes or diminished lung sounds Cardio regular rhythm Rate: bradycardia and other Other Details: Heart rate is about 55-60 but this is asymptomatic and her blood pressure is normal. GI normal to inspection, nondistended, normoactive bowel sounds, soft to palpation, non-tender and non-distended Back/Spine no CVA tenderness Extremity normal to inspection General Extremety ED: Negative for edema, pulses abnormal or tenderness General Extremity: Negative for edema or pulses abnormal Neuro oriented x3 Neuro Narrative: Patient occasionally seem to take a little while to answer questions. But she is actually ANO x3. I think she just may be a little bit surprised at the events that happened today. There is no focal deficit on exam. Sensorium / Orientation: awake and alert Psych mental status grossly normal Skin no rashes or lesions noted MDM MDM MDM Narrative Medical decision making narrative: Patient's initial CBC electrolytes show no marked abnormalities. Initial troponin was negative. Chest x-ray was negative. Because of her onset of symptoms, we did do a repeat troponin and EKG. EKG did not show interval change. However troponin went up. We do not know if this was due to ischemia although she really has very low risk for ischemia. This may have been dysrhythmia possibly related to lidocaine injection. But with the rising troponin she will be kept in the hospital for further observation treatment and assessment. Lab Data Attestation: I reviewed the patient's lab results. Labs: Laboratory Results - last 24 hr 06/04/21 06/04/21 06/04/21 15:08 15:08 17:05 WBC 5.8 RBC 4.01 L Hgb 12.6 Hct 37.8 MCV 94.3 MCH 31.4 MCHC 33.3 RDW Std Deviation 49.2 H RDW Coeff of Esmer 14.3 Plt Count 153 MPV 11.0 Immature Gran % (Auto) 0.300 Neut % (Auto) 52.7 Lymph % (Auto) 27.8 Gibson % (Auto) 14.9 H Eos % (Auto) 3.6 Baso % (Auto) 0.7 Absolute Neuts (auto) 3.1 Absolute Lymphs (auto) 1.62 Nucleated RBC % 0 Sodium 139 Potassium 5.1 Chloride 107 Carbon Dioxide 29.0 Anion Gap 3 L BUN 20 H Creatinine 0.72 Estim Creat Clear Calc 41.76 Est GFR (MDRD) Af Amer 105 Est GFR (MDRD) Non-Af 87 BUN/Creatinine Ratio 27.9 H Glucose 118 H Calcium 8.6 Troponin I High Sens 13 75 H Radiography Diagnostic Testing: Clinical Impression(s) from Imaging Studies Chest X-Ray 06/04/21 15:20 IMPRESSION: No acute abnormality is seen. Electronically Signed: Johnny Acosta MD at 15:38 EST , Service support , EKG Initial EKG: Comments: EKG shows a normal sinus rhythm with slightly bradycardic rate of 59. No acute ST elevation or depression. No ectopy. GA interval, QRS duration and QTc normal. Discharge Plan Dx/Rx/DC Orders Clinical Impression: Chest pain, Elevated troponin Disposition Disposition: Acute Care Hospital [facility] Discharge Date/Time: 06/04/21 20:08
[2021-06-04 15:17] LABS: Absolute Lymphocyte Count 1.62 X10^3/uL (0.83-4.51); Absolute Neutrophil Count 3.1 X10^3/uL (2.0-7.7); Basophil# 0.04 X10^3/uL; Basophil% 0.7 % (0-1); Eosinophil# 0.21 X10^3/uL; Eosinophils% 3.6 % (0-5); Hematocrit 37.8 % (37-47); Hemoglobin 12.6 g/dL (12.0-15.0); Lymphocyte # 1.62 X10^3/ul (0.83-4.51); Lymphocyte % 27.8 % (19-41); Mean Corp Hgb Conc 33.3 g/dL (32-36); Mean Corpuscular Hgb 31.4 pg (27.0-32.0); Mean Corpuscular Volume 94.3 fL (81-99); Monocyte# 0.87 X10^3/uL; Monocyte% 14.9 % (0-10); NRBC Flagged by Analyzer 0 % (0-5); Neutrophil # 3.06 X10^3/uL (2.7-7.7); Neutrophil % 52.7 % (47-70); Platelet Count 153 K/mm3 (150-450); RBC Distribution Width CV 14.3 % (11.6-14.6); RBC Distribution Width SD 49.2 fl (35.1-43.9); Red Blood Count 4.01 M/mm3 (4.2-5.4); White Blood Count 5.8 K/mm3 (4.4-11.0)
--- NOTE | 2021-06-04 15:20 | RAD_ITS ---
STUDY: X-RAY CHEST REASON FOR EXAM: Female, 66 years old. Chest pain TECHNIQUE: Single AP portable view of the chest. COMPARISON: None. FINDINGS: EKG electrodes are seen. Hyperinflation. The lungs are clear. There is no demonstrated pleural abnormality. Normal size heart. Normal mediastinum and jane. Normal visualized pulmonary arteries. There is atherosclerotic calcification of the aortic arch with tortuosity. There is a dextroscoliosis of the thoracic spine. Normal visualized ribs, clavicles, and shoulders. There is no demonstrated abnormality of the visualized soft tissue structures of the upper abdomen. RAD/Chest 1 View (Portable) IMPRESSION: No acute abnormality is seen. Electronically Signed: Johnny Acosta MD at 15:38 EST , Service support ,
[2021-06-04 15:46] LABS: Anion Gap 3 (5-15); BUN 20 mg/dL (7-18); BUN/Creat Ratio 27.9 RATIO (10-20); Calcium,Total 8.6 mg/dL (8.5-10.1); Chloride 107 mmol/L (98-107); Creatinine, Serum 0.72 mg/dL (0.55-1.02); EST Glomerular Filtration Rate 87 mL/min (>60); Est Glom Filt Rate - Afr Amer 105 mL/min (>60); Estimated Creatinine Clearance 41.76 ml/min; Glucose 118 mg/dL (74-106); Potassium 5.1 mmol/L (3.5-5.1); Sodium Level 139 mmol/L (136-145); Troponin-I HS 13 pg/mL (3.0-54.0)
--- NOTE | 2021-06-04 16:46 | EKG12_ITS ---
Test Reason : REPEAT Blood Pressure : / mmHG Vent. Rate : 057 BPM Atrial Rate : 057 BPM P-R Int : 178 ms QRS Dur : 084 ms QT Int : 434 ms P-R-T Axes : 057 -19 065 degrees QTc Int : 422 ms Sinus bradycardia Otherwise normal ECG Confirmed by MYLA GOMEZ, LATOYA ([id number]), newspaper managing editor VLADIMIR FRANKLIN ([id number]) on 06/06/2021 10:46:01 AM Referred By: JOHNSON Confirmed By:LATOYA LANZA MD
[2021-06-04 17:35] LABS: Troponin-I HS 75 pg/mL (3.0-54.0)
[2021-06-04] MEDS: Nitroglycerin SL (ED/IMG/CATH) 0.4 MG TABLET SL ×2 (18:48→18:54)
--- NOTE | 2021-06-04 19:18 | HP.PCM.HOS_ITS ---
HPI - General HPI Narrative CARLOS WILDER, is a 66 F who presents to the hospital with chest pressure. She went to the dentist today and had an injection of lidocaine at which point she started feeling tingles all over and had some chest pressure. She continues to have some chest pressure and her initial troponin was 13 and then her repeat troponin was 75. EKG is nonischemic and she has no cardiac risk factors, she does not smoke, does not have any lifestyle issues and is not obese. Her father did have a heart attack but he is the only one in her family. Her rheumatoid arthritis does put her at a risk for coronary artery disease though. [facility] Medical History Osteoporosis Rheumatoid arthritis Home Medications calcium carbonate 750 mg PO TID 08/02/15 [History Last Taken 06/03/21] etanercept [Enbrel] 50 mg SQ FR 08/02/15 [History Last Taken 06/01/21] folic acid 1 mg PO DAILY@0800 08/02/15 [History Last Taken 06/03/21] methotrexate sodium 20 mg PO MO 08/02/15 [History Last Taken 05/28/21] divalproex 250 mg PO BREAKFAST 06/04/21 [History Last Taken 06/04/21] divalproex 500 mg PO QHS 06/04/21 [History Last Taken 06/03/21] propranolol 20 mg PO BREAKFAST 06/04/21 [History Last Taken 06/04/21] propranolol 40 mg PO QHS 06/04/21 [History Last Taken 06/03/21] Allergy/AdvReac Type Severity Reaction Status Date / Time etodolac [From [facility]] Allergy Diarrhea Verified 06/04/21 14:48 Family History (Updated 06/04/21 @ 19:[address] Jorge Soto MD) Other Cancer Heart disease Surgical History History of appendectomy Social History Smoking Status: Never smoker ROS Constitutional Constitutional: Denies chills, fatigue, fever(s) or malaise Eyes Eyes: Denies blurry vision ENT HEENT: Denies headache(s) or nasal discharge Cardiovascular Cardiovascular: Reports chest pain; Denies dyspnea on exertion or syncope Respiratory/Chest Respiratory/Chest: Denies cough, shortness of breath at rest or shortness of breath with exertion Gastrointestinal Gastrointestinal: Denies constipation, diarrhea, nausea or vomiting Genitourinary Genitourinary: Denies dysuria Neurologic Neurologic: Denies focal weakness, numbness or tremor(s) Psychiatric Psychiatric: Denies anxiety or depression Vital Signs Vital Signs Vital Signs: 06/04/21 14:45 06/04/21 14:50 06/04/21 15:03 Temperature 97 F L Temperature Source Temporal Pulse Rate 55 L 50 L 62 Respiratory Rate 17 15 15 Respiratory Effort Normal Non-Labored Blood Pressure 122/83 H 68/59 L 120/82 H Blood Pressure Mean 96 62 94 Pulse Ox 99 94 94 Oxygen Delivery Method Room Air Room Air Room Air 06/04/21 15:11 06/04/21 16:00 06/04/21 17:00 Temperature Temperature Source Pulse Rate 56 L 59 L Respiratory Rate 13 16 Respiratory Effort Blood Pressure 160/97 H 153/89 H Blood Pressure Mean 118 110 Pulse Ox 96 97 Oxygen Delivery Method Room Air Room Air Room Air 06/04/21 18:07 06/04/21 18:48 06/04/21 18:54 Temperature Temperature Source Pulse Rate 57 L 60 60 Respiratory Rate 16 Respiratory Effort Blood Pressure 159/93 H 144/93 H 144/93 H Blood Pressure Mean 115 Pulse Ox 95 Oxygen Delivery Method Room Air 06/04/21 19:01 Temperature Temperature Source Pulse Rate Respiratory Rate Respiratory Effort Blood Pressure 93/61 Blood Pressure Mean 71 Pulse Ox Oxygen Delivery Method Weight Weight: 122 lb Body Mass Index (BMI) 23.0 Physical Exam Const alert, oriented x3 and no apparent distress General Appearance: cooperative HEENT normocephalic and moist oral mucous membranes Eyes PERRL, EOMs intact bilaterally and conjunctivae normal Neck supple and no JVD Resp normal respiratory effort, no retractions, no use of accessory muscles and clear to auscultation bilaterally Auscultation: Negative for crackles, rales, rhonchi or wheezes Cardio regular rate, regular rhythm, S1 normal heart sound, S2 normal heart sound and no murmurs GI soft to palpation, non-tender and non-distended; Negative for hepatosplenomegaly Extremity no clubbing, cyanosis or edema Skin no rashes or lesions noted Neuro no focal motor deficits and no sensory deficits noted Psych affect normal Appearance: appropriate Results Lab / Micro Data Result Diagrams: 06/04/21 15:08 06/04/21 15:08 Labs: Laboratory Results - last 24 hr 06/04/21 15:08: WBC 5.8, RBC 4.01 L, Hgb 12.6, Hct 37.8, MCV 94.3, MCH 31.4, MCH C 33.3, RDW Std Deviation 49.2 H, RDW Coeff of Esmer 14.3, Plt Count 153, MPV 1 1.0, Immature Gran % (Auto) 0.300, Neut % (Auto) 52.7, Lymph % (Auto) 27.8, Calvert % (Auto) 14.9 H, Eos % (Auto) 3.6, Baso % (Auto) 0.7, Absolute Neuts (auto) 3.1, Absolute Lymphs (auto) 1.62, Nucleated RBC % 0 06/04/21 15:08: Sodium 139, Potassium 5.1, Chloride 107, Carbon Dioxide 29.0, Anion Gap 3 L, BUN 20 H, Creatinine 0.72, Estim Creat Clear Calc 41.76, Est GFR (MDRD) Af Amer 105, Est GFR (MDRD) Non-Af 87, BUN/Creatinine Ratio 27.9 H, Glucose 118 H, Calcium 8.6, Troponin I High Sens 13 06/04/21 17:05: Troponin I High Sens 75 H Radiology Impression Chest X-Ray 06/04/21 15:20 IMPRESSION: No acute abnormality is seen. Electronically Signed: Johnny Acosta MD at 15:38 EST , Service support , Assessment & Plan Assessment/Plan (1) Chest pain: PLAN: 1. Chest pressure ?This occurred after a lidocaine injection at the dentist office ?Troponin is elevated to 75, however with no significant history or EKG changes will trend troponins, if they go up significantly then would anticipate antico agulation with cardiology consult, if they do not could potentially perform a stress test in the morning ?Rheumatoid arthritis does put her at risk for coronary artery disease 2. Rheumatoid arthritis ?She is on Enbrel, methotrexate, and folic acid 3. Headaches ?Unsure as to the etiology however she takes both Depakote and propranolol for these ?We will continue DVT: Ambulation Charges/Coding Visit Charges OBSV E&M: 52902 Initial observation care L2
--- NOTE | 2021-06-04 20:42 | NURSING ---
pandemic emergency documentation
[2021-06-04 21:46] LABS: Troponin-I HS 201 pg/mL (3.0-54.0)
[2021-06-04] MEDS: Propranolol 40 MG Tablet PO (22:17)
[2021-06-04] MEDS: Enoxaparin 40 MG/0.4 ML Syringe SC (22:17)
[2021-06-04] MEDS: Amitriptyline 100 MG Tablet PO (22:17)
[2021-06-04] MEDS: Divalproex Sodium 250 MG Tablet 500 MG PO (22:17)
[2021-06-05 02:15] VITALS: BP 112/71; PULSE 55; RESP 13; TEMP 36.5; O2SAT 93
[2021-06-05 03:30] VITALS: PULSE 55
--- NOTE | 2021-06-05 04:25 | EKG12_ITS ---
Test Reason : AM Blood Pressure : / mmHG Vent. Rate : 055 BPM Atrial Rate : 055 BPM P-R Int : 182 ms QRS Dur : 078 ms QT Int : 456 ms P-R-T Axes : 063 024 078 degrees QTc Int : 436 ms Sinus bradycardia Otherwise normal ECG When compared with ECG of 04-JUN-2021 17:21, MANUAL COMPARISON REQUIRED, DATA IS UNCONFIRMED Confirmed by TRAN GOMEZ, MARIMAR ([id number]), manager editorial VLADIMIR FRANKLIN ([id number]) on 06/12/2021 7:32:23 AM Referred By: MAUREEN Confirmed By:MARIMAR MAYFIELD MD
[2021-06-05] MEDS: Propranolol 10 MG Tablet 20 MG PO (06:16)
--- NOTE | 2021-06-05 06:37 | NURSING ---
pt awake walked to the restroom then layed back in bed, pain started a little bit after, rating the chest tightness a 8/10.
[2021-06-05 06:40] VITALS: BP 164/84; PULSE 56; RESP 14; O2SAT 95
[2021-06-05 06:52] VITALS: BP 164/88; PULSE 53
[2021-06-05] MEDS: Nitroglycerin (INPATIENT USE) 0.4 MG TAB.SUBL SL (06:52)
--- NOTE | 2021-06-05 07:04 | PCM.CONS.C ---
Assessment & Plan Assessment/Plan (1) Chest pain: PLAN: She does have chest discomfort with an elevated troponin level. Unfortunately her blood pressure is also noted to be elevated. Her symptoms are fairly characteristics and therefore I will suggest that we proceed with a left heart catheterization. The risk benefits alternatives have been explained to her she understands and agrees to proceed. Depending on the findings further recommendations will be made. Addendum: Left heart catheterization performed demonstrating no obstructive coronary artery lesions. Her left ventricular systolic function however is reduced estimated at 40% with severe hypokinesis of the mid anterior wall and apex. The above is consistent with Takotsubo cardiomyopathy. We will optimize her medical therapy. Consider addition of an ARB or ZACH inhibitor. She is already on a beta-jayme for migraines. We will likely discharge this afternoon if she is stable for outpatient follow-up. HPI Consult Data Date of Consult: 06/05/21 HPI Narrative HPI Narrative: CARLOS WILDER, is a 66 F who presents to the emergency last night with chest discomfort radiating to her back and left arm as well as jaw discomfort. She had initially gone to the dentist earlier in the day and had been worked on. She also had an injection of lidocaine. She says that since then she has developed significant chest discomfort. She presented to the emergency room her troponins were obtained and were noted to be elevated. She has continued to have waxing and waning episodes of the discomfort. She previously has had no heart disease no neck or jaw discomfort to suggest angina. She does have a history of migraines. She is currently being boarded in the emergency room and I saw her this morning and she was still having chest discomfort. [facility] Medical History Migraine Osteoporosis Rheumatoid arthritis Home Medications calcium carbonate 750 mg PO TID 08/02/15 [History Last Taken 06/03/21] etanercept [Enbrel] 50 mg SQ FR 08/02/15 [History Last Taken 06/01/21] folic acid 1 mg PO DAILY@0800 08/02/15 [History Last Taken 06/03/21] methotrexate sodium 20 mg PO MO 08/02/15 [History Last Taken 05/28/21] amitriptyline 100 mg PO QHS 06/04/21 [History Last Taken Unknown] divalproex 250 mg PO BREAKFAST 06/04/21 [History Last Taken 06/04/21] divalproex 500 mg PO QHS 06/04/21 [History Last Taken 06/03/21] propranolol 20 mg PO BREAKFAST 06/04/21 [History Last Taken 06/04/21] propranolol 40 mg PO QHS 06/04/21 [History Last Taken 06/03/21] Allergy/AdvReac Type Severity Reaction Status Date / Time etodolac [From Lodine] Allergy Diarrhea Verified 06/04/21 14:48 Family History Other Cancer Heart disease Surgical History History of appendectomy Social History Smoking Status: Never smoker ROS Constitutional Constitutional: Denies fever(s) or weight loss Eyes Eyes: Reports systems reviewed and no addt'l complaints, except as documented ENT HEENT: Reports systems reviewed and no addt'l complaints, except as documented Cardiovascular Cardiovascular: Reports chest pain at rest, chest pain with activity and dyspnea at rest; Denies dyspnea on exertion, edema, palpitations or paroxysmal nocturnal dyspnea Respiratory/Chest Respiratory/Chest: Denies dyspnea on exertion, productive cough, shortness of breath at rest or shortness of breath with exertion Gastrointestinal Gastrointestinal: Denies change in bowel habits, nausea, vomiting or weight changes Genitourinary Genitourinary: Denies difficulty urinating Musculoskeletal Musculoskeletal: Denies joint stiffness or muscle weakness Integumentary Integumentary: Denies lesions Neurologic Neurologic: Denies dizziness or syncope Psychiatric Psychiatric: Denies anxiety Endocrine Endocrinology: Denies excessive sweating or fatigue Hematologic/Lymphatic Hematologic/Lymphatic: Denies anemia Allergic/Immunologic Allergic/Immunologic: Denies seasonal rhinorrhea Physical Exam Const alert, oriented x3 and no apparent distress General Appearance: cooperative HEENT hearing grossly normal bilaterally Head and Scalp: atraumatic Eyes EOMs intact bilaterally Neck General: normal visual inspection Chest inspection of chest normal and palpation of chest normal Resp normal respiratory effort Auscultation: clear to auscultation bilaterally Cardio regular rate, regular rhythm, S1 normal heart sound and S2 normal heart sound Jugular Venous Distention: JVD GI normal to inspection, nondistended, normoactive bowel sounds Extremity normal capillary refill and no pedal edema Peripheral Pulses: Yes pulses 2+ throughout and femoral pulses present Skin no rashes or lesions noted Neuro oriented x3 and CN's II-XII intact bilaterally Psych Appearance: grossly normal and appropriate Risk Stratification Risk Stratification Applicable: Yes Age >/= 65: Yes >/= 3 CAD Risk Factors (HTN, HLD, DM, family hx of CAD, or current smoker): No Aspirin Use in the Past 7 Days: No Severe Angina (>/= episodes in 24 hours): No EKG ST Changes >/= 0.5mm: No Positive Cardiac Marker: Yes EZEQUIEL Risk Stratification Score: 2 EZEQUIEL % Risk: 8% Risk Objective Data Vital Signs: Vital Signs Temp Pulse Resp BP Pulse Ox 97.7 F L 53 L 14 164/88 H 95 06/05/21 02:15 06/05/21 06:52 06/05/21 06:40 06/05/21 06:52 06/05/21 06:40 Oxygen Delivery Method Room Air Weight: 132 lb 1.6 oz Body Mass Index (BMI) 25.7 Intake & Output: Intake and Output for Last 24 Hours 06/03/21 06/04/21 06/05/21 23:59 23:59 23:59 Intake Total 840 / 840 Balance 840 / 840 Lab / Micro Data Result Diagrams: 06/04/21 15:08 06/04/21 15:08 Labs: Laboratory Results - last 24 hr 06/04/21 15:08: WBC 5.8, RBC 4.01 L, Hgb 12.6, Hct 37.8, MCV 94.3, MCH 31.4, MCHC 33.3, RDW Std Deviation 49.2 H, RDW Coeff of Esmer 14.3, Plt Count 153, MPV 11.0, Immature Gran % (Auto) 0.300, Neut % (Auto) 52.7, Lymph % (Auto) 27.8, [place] % (Auto) 14.9 H, Eos % (Auto) 3.6, Baso % (Auto) 0.7, Absolute Neuts (auto) 3.1, Absolute Lymphs (auto) 1.62, Nucleated RBC % 0 06/04/21 15:08: Sodium 139, Potassium 5.1, Chloride 107, Carbon Dioxide 29.0, Anion Gap 3 L, BUN 20 H, Creatinine 0.72, Estim Creat Clear Calc 41.76, Est GFR (MDRD) Af Amer 105, Est GFR (MDRD) Non-Af 87, BUN/Creatinine Ratio 27.9 H, Glucose 118 H, Calcium 8.6, Troponin I High Sens 13 06/04/21 17:05: Troponin I High Sens 75 H 06/04/21 21:10: Troponin I High Sens 201 H* Cardiology Labs/Tests 06/04/21 15:08: WBC 5.8, RBC 4.01 L, Hgb 12.6, Hct 37.8, MCV 94.3, MCH 31.4, MCHC 33.3, Plt Count 153, MPV 11.0, Immature Gran % (Auto) 0.300, Neut % (Auto) 52.7, Lymph % (Auto) 27.8, [place] % (Auto) 14.9 H, Eos % (Auto) 3.6, Baso % (Auto) 0.7, Absolute Neuts (auto) 3.1, Nucleated RBC % 0 06/04/21 15:08: Sodium 139, Potassium 5.1, Chloride 107, Carbon Dioxide 29.0, Anion Gap 3 L, BUN 20 H, Creatinine 0.72, Est GFR (MDRD) Af Amer 105, Est GFR (MDRD) Non-Af 87, BUN/Creatinine Ratio 27.9 H, Glucose 118 H, Calcium 8.6 Rhythm: EKG: ECHO: Stress Test: Cardiac Cath: PCI: CT Surgery: Holter monitor: EPS: PPM: CXR: Chest CT Scan: Radiography Diagnostic Testing: Radiology Impression Chest X-Ray 06/04/21 15:20 IMPRESSION: No acute abnormality is seen. Electronically Signed: Johnny Acosta MD at 15:38 EST , Service support ,
[2021-06-05] MEDS: Aspirin 81 MG TAB.CHEW PO (07:09)
--- NOTE | 2021-06-05 08:19 | CASEMGMT ---
According to the [facility] website, the following are in-network tertiary facilities: [facility], [place], [facility], [facility], [facility], [facility], [facility], and . Agnieszka BROUSSARD CM
--- NOTE | 2021-06-05 09:39 | ECHOD_ITS ---
Reason For Study: Takosubo Procedure This was a 2D Doppler, Color Flow transthoracic echocardiogram. Typewriter Aligner room 4. Left Ventricle Normal LV size. The estimated ejection fraction is 50 %. Mild segmental systolic dysfunction (see wall motion). Normal diastology for age. Mid-Anterior : Mildly hypokinetic. [place] : Hypokinetic. Right Ventricle Normal RV size. Normal systolic function. Atria Normal left atrium. Normal right atrium. Mitral Valve Normal mitral valve. Tricuspid Valve Normal tricuspid valve. Mild tricuspid valve insufficiency. Pulmonary artery systolic pressure is 24 mmHg. Aortic Valve Normal aortic valve. Trisinus/trileaflet aortic valve. Pulmonic Valve Normal pulmonic valve. Great Vessels Normal aortic root. The pulmonary artery is normal size. Normal inferior vena cava. Pericardium/Pleural No pericardial effusion. MMode/2D Measurements & Calculations LVIDd: 4.0 cm IVSd: 0.75 cm LA dimension: 3.2 cm LVIDs: 2.6 cm LVPWd: 0.70 cm FS: 36.3 % LAV(MOD-bp): 35.6 ml LVAd ap4: 22.5 cm2 LVAd ap2: 21.3 cm2 LAV(MOD-bp) Indexed: 22.7 ml/m2 LVLd ap4: 6.5 cm LVLd ap2: 7.4 cm LAV(MOD-sp2): 32.0 ml EDV(MOD-sp4): 64.5 ml EDV(MOD-sp2): 53.5 ml LAV(MOD-sp4): 35.7 ml EDV(sp4-el): 66.3 ml EDV(sp2-el): 51.5 ml LVAs ap4: 12.5 cm2 LVAs ap2: 12.2 cm2 LVLs ap4: 5.2 cm LVLs ap2: 5.9 cm ESV(MOD-sp4): 25.9 ml ESV(MOD-sp2): 22.2 ml ESV(sp4-el): 25.9 ml ESV(sp2-el): 21.5 ml EF(MOD-sp4): 59.9 % EF(MOD-sp2): 58.6 % EF(sp4-el): 61.0 % SV(MOD-sp4): 38.6 ml SV(MOD-sp2): 31.3 ml SV(sp4-el): 40.4 ml LA A4 area: 14.2 cm2 RA A4 area: 13.2 cm2 Time Measurements MV dec time: 0.21 sec Doppler Measurements & Calculations MV E max cedric: 83.6 cm/sec Lat Peak E' Cedric: 8.5 cm/sec Med Peak E' Cedric: 9.9 cm/sec MV A max cedric: 65.2 cm/sec E/E' lat: 9.9 E/E' med: 8.5 MV E/A: 1.3 MV V2 max: 81.1 cm/sec MV P1/2t max cedric: 82.0 cm/sec Ao V2 max: 86.7 cm/sec MV max P.6 mmHg MV P1/2t: 97.1 msec Ao max P.0 mmHg MV V2 mean: 44.9 cm/sec MV dec slope: 247.2 cm/sec2 MV mean P.95 mmHg MV V2 VTI: 28.5 cm MVA(P1/2t): 2.3 cm2 LV V1 max: 75.5 cm/sec PA V2 max: 64.2 cm/sec TR max cedric: 226.9 cm/sec LV V1 max P.3 mmHg TR max P.6 mmHg ECHO/Echo Complete Interpretation Summary Normal LV size. The estimated ejection fraction is 50 %. Mild segmental systolic dysfunction (see wall motion). Mid-Anterior : Mildly hypokinetic Ordering Physician: Irvin Geiger Referring Physician: Joanne Arnold M.D. Performed By: Giovanny Arzola RCS
--- NOTE | 2021-06-05 14:39 | DS.PCM_ITS ---
Providers Date of Admission: 06/04/21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 Physician: Dr. Joanne Arnold MD Consultations 06/04/21 21:52 Consult: Cardiology Routine Consulting Provider: Irvin Hunter Reason for Consult: elevated troponin EMERGENT Consult: Yes MD Notified: Yes Date Notified: 06/04/21 Time Notified: 21:52 Method of Notification: Provider Initiated Comments:: dr stokes called dr hunter Reason For Visit: CHEST PRESSURE Diagnosis Discharge Diagnosis (1) Chest pain: Status: Deleted Code(s): R07.9 - Chest pain, unspecified Medications at Discharge Home Medications Enbrel 50 mg SQ FR 08/02/15 calcium carbonate 750 mg PO TID 08/02/15 folic acid 1 mg PO DAILY@0800 08/02/15 methotrexate sodium 20 mg PO MO 08/02/15 amitriptyline 100 mg PO QHS 06/04/21 divalproex 250 mg PO BREAKFAST 06/04/21 divalproex 500 mg PO QHS 06/04/21 propranolol 20 mg PO BREAKFAST 06/04/21 propranolol 40 mg PO QHS 06/04/21 losartan 25 mg PO DAILY #30 tab 06/05/21 Hospital Course Procedures 2-D Echocardiogram and Cardiac catheterization Summary of Care Provided Minutes Spent on Discharge: 36 Hospital Course: Mrs. Mcintosh is a 66-year-old white female who presented to the emergency department at [facility] on 06/04/2021 with a chief complaint of chest pressure. She evidently had gone to a dentist appointment and had an injection of lidocaine at which point she started feeling tingles all over and had developed chest pressure. She continued to have chest pressure so she came to emergency department. She had associated symptoms radiating into her back, left arm and left jaw. Her initial troponin was 13 but a repeat delta troponin was 75. Her EKG was nonischemic and she had no cardiac risk factors other than family history in her father who had an SD. Her only significant past medical history was rheumatoid arthritis. She was given some nitroglycerin and did have some improvement in her chest pain. Given her troponin elevation she was evaluated by cardiology and taken for cardiac catheterization. Her left heart cath was done on the a.m. of 06/05/2021 and demonstrated no obstructive coronary disease but did show an EF of 40% with severe hypokinesis of the mid anterior wall and apex consistent with Takotsubo cardiomyopathy. An echocardiogram was obtained as well. This shows an EF of 50% with mild segmental systolic dysfunction and a mid anterior LV that was mildly hypokinetic. Given these findings she was maintained on her home beta-jayme but a low-dose ARB in losartan 25 mg daily was added. She was monitored post-cath for any arrhythmias of which she had none. She was able to be discharged home on 06/05/2021 with the above additional medication regimen and instructions to follow-up with cardio logy in 1 month. Discharge diagnoses: Chest pain-resolved Troponin elevation Takotsubo cardiomyopathy Rheumatoid arthritis History of migraines Physical Exam Const alert, oriented x3, no apparent distress, average body habitus, no limitations, healthy appearing and well nourished Constitutional Narrative: Upper middle-aged white female sitting on the edge bed, at bedside, patient is nontoxic and appears well General Appearance: cooperative, comfortable, well kempt and well developed Orientation / Consciousness: awake HEENT normocephalic, head/scalp atraumatic, hearing grossly normal bilaterally and moist oral mucous membranes Eyes PERRL, EOMs intact bilaterally and conjunctivae normal Eyes Narrative: No scleral icterus Neck no lymphadenopathy, supple and no JVD Neck Narrative: Trachea midline, no thyroid enlargement Resp normal respiratory effort, no retractions, no use of accessory muscles and clear to auscultation bilaterally Auscultation: crackles, rales, rhonchi and wheezes Cardio regular rhythm, S1 normal heart sound, S2 normal heart sound, no murmurs, no rub, no gallops, no clicks and no JVD Cardio Narrative: Mild bradycardia GI normal to inspection, nondistended, normoactive bowel sounds, soft to palpation, non-tender and non-distended Extremity normal to inspection and no clubbing, cyanosis or edema Extremity Narrative: Right radial site with bandage in place and no drainage Skin no rashes or lesions noted, no wounds, skin turgor normal and no jaundice Neuro oriented x3, CN's II-XII intact bilaterally, moves all extremities and no focal motor deficits Sensorium / Orientation: awake and alert Speech: speech normal Psych affect normal Weight / BMI Weight Weight: 59.92 kg Body Mass Index (BMI) 25.7 ABG / Lab / Microbiology Data Result Diagrams: 06/04/21 15:08 06/04/21 15:08 Laboratory: Laboratory Results - last 24 hr 06/04/21 15:08: WBC 5.8, RBC 4.01 L, Hgb 12.6, Hct 37.8, MCV 94.3, MCH 31.4, MCHC 33.3, RDW Std Deviation 49.2 H, RDW Coeff of Esmer 14.3, Plt Count 153, MPV 11.0, Immature Gran % (Auto) 0.300, Neut % (Auto) 52.7, Lymph % (Auto) 27.8, [place] % (Auto) 14.9 H, Eos % (Auto) 3.6, Baso % (Auto) 0.7, Absolute Neuts (auto) 3.1, Absolute Lymphs (auto) 1.62, Nucleated RBC % 0 06/04/21 15:08: Sodium 139, Potassium 5.1, Chloride 107, Carbon Dioxide 29.0, Anion Gap 3 L, BUN 20 H, Creatinine 0.72, Estim Creat Clear Calc 41.76, Est GFR (MDRD) Af Amer 105, Est GFR (MDRD) Non-Af 87, BUN/Creatinine Ratio 27.9 H, Glucose 118 H, Calcium 8.6, Troponin I High Sens 13 06/04/21 17:05: Troponin I High Sens 75 H 06/04/21 21:10: Troponin I High Sens 201 H* Radiography Diagnostic Testing: Radiology Impression Chest X-Ray 06/04/21 15:20 IMPRESSION: No acute abnormality is seen. Electronically Signed: Johnny Acosta MD at 15:38 EST , Service support , Echocardiogram 06/05/21 09:39 Interpretation Summary Normal LV size. The estimated ejection fraction is 50 %. Mild segmental systolic dysfunction (see wall motion). Mid-Anterior : Mildly hypokinetic Ordering Physician: Irvin Hunter Referring Physician: Joanne Arnold M.D. Performed By: Giovanny Arzola RCS D/C Instructions Discharge Diet: 4000 mg Sodium Diet Discharge Activity: Return to Normal Activity Return to work on: 06/11/21 Meaningful Use Info Meaningful Use Diagnoses (Choose all that apply): None applicable Discharge Plan Admission Admit Date/Time: 06/04/21 19:14 Primary Reason for Your Visit: Chest pain Attending Provider: Tania Seals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 Provider: Joanne Arnold Consulting Providers: Irvin Hunter Instructions Patient Instructions: Takotsubo Cardiomyopathy Discharge Orders/Prescriptions Prescriptions: New losartan 25 mg tablet 25 mg PO DAILY Qty: 30 RF: 1 Continued methotrexate sodium 2.5 MG tablet 20 mg PO MO RF: 0 folic acid 1 MG tablet 1 mg PO DAILY@0800 RF: 0 calcium carbonate 500 MG tablet,chewable 750 mg PO TID RF: 0 Enbrel 50 MG/ML syringe 50 mg SQ FR RF: 0 divalproex 500 mg tablet,delayed release (DR/EC) 250 mg PO BREAKFAST RF: 0 propranolol 20 mg tablet 20 mg PO BREAKFAST RF: 0 divalproex 500 mg tablet,delayed release (DR/EC) 500 mg PO QHS RF: 0 propranolol 20 mg tablet 40 mg PO QHS RF: 0 amitriptyline 100 mg tablet 100 mg PO QHS RF: 0 Referrals / Follow Up: Joanne Arnold MD [Primary Care Provider] - Within 2 Weeks Irvin Hunter MD [STAFF PHYSICIAN] - Within 1 Month Disposition Discharge Orders: Discharge Patient (Routine); Ordered 06/05/21 Ordered By: Dr. Tania Seals Charges/Coding Visit Charges Inpatient E&M: 98740 Disch Hosp
--- NOTE | 2021-06-07 22:50 | CL.D_ITS ---
Patient Name: CARLOS WILDER Study Date: 06/05/2021 Performing: Irvin Geiger MD Ht: 60 inches 152 cm : 1955 Wt: 132.5 lbs 60 kg Age: 66 Gender: female BSA: 1.56 PROCEDURE(S) PERFORMED QV80-[id number]/COR/LV 16082 CLINICAL PROFILE AND INDICATIONS Indications: Worsening Angina Heart Failure: None Stress/Imaging Stress/Image Study Performed: No CONCLUSIONS Normal coronary arteries Cardiomyopathy: Takotsubo RECOMMENDATIONS Medical therapy DESCRIPTION OF PROCEDURE The patient arrived to the procedure lab. The risks and benefits of the procedure as well as a full d escription of our services here and current unavailability of surgical backup were fully explained to the patient and/or their significant other prior to the catheterization. The Timeout was completed, verifying the correct patient and procedure. The patient's procedural site was prepped and draped in the usual fashion. Local anesthetic was given subcutaneously to right radial region with Lidocaine 2% . Using a modified Seldinger technique, arterial access was obtained via the right radial artery, a 6 Fr sheath was inserted. Left Coronary Artery selective angiography was performed in multiple views u sing a 5 Fr. 4.0 [place] catheter. Right Coronary Artery selective angiography was then performed in mu ltiple views using a 5 Fr. Pigtail catheter. Left Ventriculography was performed in BOGGS projection us ing a 5 Fr. Pigtail catheter. LV to AO pullback pressures were then recorded.The arterial sheath was pulled and a TR Band was applied for hemostasis CORONARY ANGIOGRAPHY DOMINANCE: Right Dominant LEFT HEART ASSESSMENT Left Ventricular Ejection Fraction: by LV Gram 40 % Anterior Hypokinesis - Severe Depressed Left Ventricular systolic function Consistent with Takotsubo cardiomyopathy. LEFT ANTERIOR DESCENDING ARTERY: No significant disease noted CIRCUMFLEX ARTERY: No significant disease noted RIGHT CORONARY ARTERY: No significant disease noted COMPLICATIONS No Complications PROCEDURE MEDICATIONS Fentanyl 50 mcg IV Versed 1 mg IV Oxygen: 2 L/min via nasal cannula Heparin given IA 06/05/2021 07:53:38 IV Bolus: .9 NaCl 200 ml total 06/05/2021 08:04:08 SUMMARY OF HEMODYNAMIC DATA Time AIR REST ECG 07:34:47 Art 118/62 (83) 07:50:14 AO 68/43 (55) SA 07:55:07 LV 81/8, 19 08:00:00 LV 86/6, 12 08:00:07 LV 74/7, 12 08:01:15 LVp 78/8, 13 08:01:21 AOp 85/52 (66) 08:01:26 AO 91/55 (70) 08:01:34 ECG 08:14:04 Signed By Irvin Geiger MD On 06/06/2021 2:46:41 PM Irvin Geiger MD
== END 2021-06-05 15:07 | disposition home or self-care (01) ==
LOC: ED 15:17 → PCU 19:32
PROVIDERS: Admitting Provider Family Medicine; Emergency Provider Emergency Medicine; PCP Family Medicine; Visit Provider Internal Medicine
DX: R07.89 Other chest pain (principal); M06.9 Rheumatoid arthritis, unspecified; I51.81 Takotsubo syndrome; M81.0 Age-related osteoporosis without current pathological fracture; R03.0 Elevated blood-pressure reading, without diagnosis of hypertension; R77.8 Other specified abnormalities of plasma proteins; G43.909 Migraine, unspecified, not intractable, without status migrainosus; Z82.49 Family history of ischemic heart disease and other diseases of the circulatory system; Z79.899 Other long term (current) drug therapy
CPT/HCPCS: 71045; 80048; 84484; 85025; 93005; 93306; 93458; 96360; 96372; 99152; 99218; 99285; J7040; A4216; C1769; C1894; G0378; Q9967

== ENCOUNTER → 2021-06-28 15:25 | Outpatient (CLI) | payer BC, SELFPAY ==
[2021-06-28 17:32] LABS: Absolute Lymphocyte Count 1.55 X10^3/uL (0.83-4.51); Absolute Neutrophil Count 2.6 X10^3/uL (2.0-7.7); Basophil# 0.04 X10^3/uL; Basophil% 0.8 % (0-1); Eosinophil# 0.17 X10^3/uL; Eosinophils% 3.2 % (0-5); Hematocrit 38.4 % (37-47); Hemoglobin 12.9 g/dL (12.0-15.0); Lymphocyte # 1.55 X10^3/ul (0.83-4.51); Lymphocyte % 29.3 % (19-41); Mean Corp Hgb Conc 33.6 g/dL (32-36); Mean Corpuscular Hgb 31.9 pg (27.0-32.0); Mean Platelet Vol. 11.1 fl (6.2-12.0); Monocyte# 0.94 X10^3/uL; Monocyte% 17.8 % (0-10); NRBC Flagged by Analyzer 0 % (0-5); Neutrophil # 2.57 X10^3/uL (2.7-7.7); Neutrophil % 48.5 % (47-70); Platelet Count 174 K/mm3 (150-450); RBC Distribution Width CV 14.1 % (11.6-14.6); RBC Distribution Width SD 48.9 fl (35.1-43.9); Red Blood Count 4.04 M/mm3 (4.2-5.4); White Blood Count 5.3 K/mm3 (4.4-11.0)
[2021-06-28 17:57] LABS: AST(SGOT) 30 U/L (15-37); Alanine Aminotransfer ALT/SGPT 38 U/L (13-56); Albumin, Serum 3.5 g/dL (3.2-5.0); BUN 22 mg/dL (7-18); CRP < 2.90 mg/L (0.0-3.0); Creatinine, Serum 0.62 mg/dL (0.55-1.02); EST Glomerular Filtration Rate 102 mL/min (>60); Est Glom Filt Rate - Afr Amer 123 mL/min (>60)
== END ==
PROVIDERS: PCP Family Medicine; Referring Provider Internal Medicine Rheumatology; Visit Provider Internal Medicine Rheumatology
DX: M05.89 Other rheumatoid arthritis with rheumatoid factor of multiple sites (principal); M25.561 Pain in right knee; Z79.899 Other long term (current) drug therapy; M17.12 Unilateral primary osteoarthritis, left knee
CPT/HCPCS: 36415; 82040; 82565; 84450; 84460; 84520; 85025; 86140

== ENCOUNTER 2021-07-13 17:13 | Outpatient (CLI) | payer MEDICARE, SELFPAY ==
[2021-07-13 17:34] LABS: Absolute Lymphocyte Count 1.36 X10^3/uL (0.83-4.51); Absolute Neutrophil Count 3.4 X10^3/uL (2.0-7.7); Basophil# 0.05 X10^3/uL; Basophil% 0.8 % (0-1); Eosinophil# 0.15 X10^3/uL; Eosinophils% 2.5 % (0-5); Hematocrit 42.7 % (37-47); Hemoglobin 13.8 g/dL (12.0-15.0); Lymphocyte # 1.36 X10^3/ul (0.83-4.51); Lymphocyte % 22.9 % (19-41); Mean Corp Hgb Conc 32.3 g/dL (32-36); Mean Corpuscular Hgb 30.4 pg (27.0-32.0); Mean Corpuscular Volume 94.1 fL (81-99); Mean Platelet Vol. 10.2 fl (6.2-12.0); Monocyte# 0.89 X10^3/uL; NRBC Flagged by Analyzer 0 % (0-5); Neutrophil # 3.44 X10^3/uL (2.7-7.7); Neutrophil % 58.1 % (47-70); Platelet Count 141 K/mm3 (150-450); RBC Distribution Width CV 13.9 % (11.6-14.6); RBC Distribution Width SD 47.9 fl (35.1-43.9); Red Blood Count 4.54 M/mm3 (4.2-5.4); White Blood Count 5.9 K/mm3 (4.4-11.0)
[2021-07-13 18:33] LABS: ALB/GLOB Ratio 0.9 RATIO (0.9-2.4); AST(SGOT) 29 U/L (15-37); Alanine Aminotransfer ALT/SGPT 42 U/L (13-56); Albumin, Serum 3.5 g/dL (3.2-5.0); Alkaline Phosphatase 74 U/L (45-117); Anion Gap 6 (5-15); BUN 29 mg/dL (7-18); Calcium,Total 9.1 mg/dL (8.5-10.1); Chloride 107 mmol/L (98-107); EST Glomerular Filtration Rate 66 mL/min (>60); Est Glom Filt Rate - Afr Amer 80 mL/min (>60); Globulin 3.9 g/dL (2.2-4.2); Glucose 102 mg/dL (74-106); Potassium 4.3 mmol/L (3.5-5.1); Protein, Total 7.4 g/dL (6.4-8.2); Sodium Level 141 mmol/L (136-145); Thyroid Stim Hormone (TSH) 2.29 uIU/mL (0.358-3.74)
== END 2021-07-13 23:59 | disposition short-term general hospital (02) ==
LOC: LAB 17:18
PROVIDERS: PCP Family Medicine; Visit Provider Family Medicine
DX: R41.82 Altered mental status, unspecified (principal)
CPT/HCPCS: 36415; 80053; 82375; 84443; 85025

== ENCOUNTER 2021-07-19 13:42 | Outpatient (CLI) | payer SELFPAY ==
--- NOTE | 2021-07-19 13:48 | CT_ITS ---
STUDY: CTA CHEST REASON FOR EXAM: Female, 66 years old. 2 day history of right-sided chest pain. RADIATION DOSAGE (If Supplied By Facility): CTDIvol = ( 8.37 ) mGy, DLP = ( 213.29 ) mGycm TECHNIQUE: The examination was performed with the intravenous administration of IV 100mL Isovue-370. Post-processing of the angiographic images was performed, with multiplanar reformation and 3D reconstruction. Individualized dose optimization techniques were used for this CT. COMPARISON: None. FINDINGS: There are multiple intraluminal filling defects in branches of the right lower lobe pulmonary artery in keeping with pulmonary emboli. Normal thoracic aorta and visualized great vessels. There is no demonstrated aortic dissection. Normal heart and pericardium. Normal mediastinum. Normal hilar regions. Normal visualized trachea and bronchi. The lungs are well expanded. Right basilar infiltrate. Mild increased markings at the left lung base. Small right pleural effusion. Normal chest wall structures. There are degenerative changes of thoracic spine. Normal visualized upper abdomen. CT/Chest WITH Contrast IMPRESSION: Multiple intraluminal filling defects in branches of the right lower lobe pulmonary artery in keeping with pulmonary emboli. Bibasilar infiltrates worse on the right side with small right pleural effusion. Electronically Signed: Johnny Acosta MD at 14:45 EST , Service support ,
== END 2021-07-19 23:59 | disposition short-term general hospital (02) ==
PROVIDERS: PCP Family Medicine; Referring Provider Family Medicine; Visit Provider Family Medicine
DX: R07.9 Chest pain, unspecified (principal)
CPT/HCPCS: 71260; Q9967; A4216

== ENCOUNTER 2021-07-27 07:34 | Outpatient (CLI) | payer MEDICARE, OTHER, SELFPAY ==
--- NOTE | 2021-07-27 07:35 | MRI_ITS ---
HISTORY: ataxia, rapid change in mental status. TECHNIQUE: Multiplanar and multisequence MR images of the brain were obtained without and with IV gadolinium. IV Contrast dosage and agent: 10 mL Dotarem. # of images incl. paperwork: 342. COMPARISON: MR 03/24/2015, CT 02/22/2013. FINDINGS: BRAIN PARENCHYMA: Mild foci of increased T2 FLAIR signal in the bilateral cerebral white matter. No abnormal focus of restricted diffusion. No enhancing lesion in the brain parenchyma. INTRACRANIAL HEMORRHAGE: No acute intracranial hemorrhage. CSF SPACES: Mild generalized volume loss. No midline shift or other significant mass effect. No extra-axial fluid collection. VESSELS: Major intracranial flow voids maintained. ORBITS: Symmetric in appearance. PARANASAL SINUSES: Clear. MRI/Brain W/WO Contrast IMPRESSION: No evidence of enhancing intracranial mass, acute infarct, or acute intracranial hemorrhage. Mild chronic involutional and white matter changes. at 1055 Reported and signed by: Lashell Herrera MD Electronically Signed: Lashell Herrera MD at 10:54 EST ,
== END 2021-07-27 23:59 | disposition short-term general hospital (02) ==
LOC: MRI 07:35
PROVIDERS: PCP Family Medicine; Referring Provider Family Medicine; Visit Provider Family Medicine
DX: R27.0 Ataxia, unspecified (principal); R41.82 Altered mental status, unspecified
CPT/HCPCS: 70553; A9575

== ENCOUNTER 2021-08-14 13:20 | Outpatient (CLI) | payer MEDICARE, OTHER, SELFPAY ==
--- NOTE | 2021-08-14 13:23 | RAD_ITS ---
STUDY: X-RAY CHEST REASON FOR EXAM: Female, 66 years old. Fever and cough TECHNIQUE: PA and lateral views of the chest. COMPARISON: 07/18/2021 FINDINGS: The lungs are clear and expanded. There is no demonstrated pleural abnormality. Normal size heart. Normal mediastinum and jane. Normal visualized pulmonary arteries. Normal visualized aortic arch and descending thoracic aorta. There are diffuse degenerative changes of the visualized thoracic spine. Normal visualized ribs, clavicles, and shoulders. There is no demonstrated abnormality of the visualized soft tissue structures of the upper abdomen. RAD/Chest PA and Lateral IMPRESSION: No acute pulmonary process Electronically Signed: Sebas Ritter MD at 17:30 EST ,
== END 2021-08-14 23:59 | disposition home or self-care (01) ==
LOC: MTRAD 13:22
PROVIDERS: PCP Family Medicine; Referring Provider Family Medicine; Visit Provider Family Medicine
DX: J18.9 Pneumonia, unspecified organism (principal)
CPT/HCPCS: 71046

== ENCOUNTER 2021-09-06 10:52 | Outpatient (CLI) | payer MEDICARE, OTHER, SELFPAY ==
--- NOTE | 2021-09-06 10:56 | ECHOL_ITS ---
Reason For Study: EVAL EF & WALL MOTION Procedure This was a limited 2D transthoracic echocardiogram. Exam performed in department. Left Ventricle Normal LV size. Left ventricular systolic function is normal. The estimated ejection fraction is 55 %. No regional wall motion abnormalities noted. Right Ventricle Normal RV size. Normal systolic function. Atria Normal left atrium. Normal right atrium. Mitral Valve Normal mitral valve. Tricuspid Valve Normal tricuspid valve. Mild (1+) tricuspid valve insufficiency. Pulmonary artery systolic pressure is 26 mmHg. Aortic Valve Normal aortic valve. Pulmonic Valve Normal pulmonic valve. Great Vessels Normal aortic root. The pulmonary artery is normal size. Normal inferior vena cava. Pericardium/Pleural No pericardial effusion. MMode/2D Measurements & Calculations LVIDd: 4.1 cm IVSd: 0.68 cm LVAd ap4: 20.6 cm2 LVIDs: 2.7 cm LVPWd: 0.69 cm LVLd ap4: 6.2 cm FS: 34.0 % EDV(MOD-sp4): 56.0 ml EDV(sp4-el): 57.6 ml LVAs ap4: 11.6 cm2 LVLs ap4: 5.2 cm ESV(MOD-sp4): 22.5 ml ESV(sp4-el): 22.0 ml EF(MOD-sp4): 59.9 % EF(sp4-el): 61.8 % SV(MOD-sp4): 33.5 ml SV(sp4-el): 35.6 ml Doppler Measurements & Calculations TR max iram: 237.0 cm/sec TR max P.5 mmHg ECHO/Echo, Limited Study Interpretation Summary Normal LV size. Left ventricular systolic function is normal. The estimated ejection fraction is 55 %. Pulmonary artery systolic pressure is 26 mmHg. Ordering Physician: Julio Horn/Irvin Geiger Referring Physician: JOHN FRIEDMAN Performed By: Diane Pabon RDCS
--- NOTE | 2021-09-06 12:23 | BI_ITS ---
MAMMOGRAPHY - BILATERAL SCREENING REASON FOR EXAM: Female, 66 years old. Routine annual screening examination. PERTINENT HISTORY: Aunt with breast cancer. Remote left stereotactic breast biopsies. TECHNIQUE: Digital bilateral breast khai (3D mammographic acquisition) in the CC and MLO projections. 2-D mediolateral oblique (MLO) and craniocaudad (CC) views of both breasts were obtained. CAD: Full Field Digital Mammography with Computer Added Detection was performed. COMPARISON: Comparison is made with prior examination dated 08/24/2020 and 06/08/2019. FINDINGS: Breast Composition: The breasts are heterogeneously dense, which may obscure small masses. The previously seen well-defined rounded soft tissue density in the deep inferior midportion of the left breast has decreased in size. It presently measures 9.5 mm x 7.1 mm. This corresponds to the site of the prior breast biopsy. No other significant abnormalities are identified. BI/SCREENING MAMM (CAD), BILAT IMPRESSION: Stable bilateral screening mammogram. Yearly follow-up mammogram recommended. (A) ASSESSMENT CATEGORY: BIRADS Category 2: Benign. A letter regarding these results will be sent to the patient by the facility within 30 days. Approximately 10% of breast cancers are not detected by mammography. A normal mammogram should not delay biopsy of a clinically suspicious abnormality. [id number] Electronically Signed: Johnny Acosta MD at 13:14 EST ,
== END 2021-09-06 23:59 | disposition home or self-care (01) ==
PROVIDERS: PCP Family Medicine; Referring Provider Nurse Practitioner Family; Visit Provider Family Medicine
DX: Z12.31 Encounter for screening mammogram for malignant neoplasm of breast (principal); I51.81 Takotsubo syndrome
CPT/HCPCS: 77067; 93308

== ENCOUNTER 2021-09-18 13:01 | Outpatient (RCR) | payer MEDICARE, OTHER, SELFPAY ==
[2021-09-18 15:01] LABS: Absolute Lymphocyte Count 1.69 X10^3/uL (0.83-4.51); Absolute Neutrophil Count 3.4 X10^3/uL (2.0-7.7); Basophil# 0.05 X10^3/uL; Basophil% 0.8 % (0-1); Eosinophil# 0.12 X10^3/uL; Hematocrit 42.3 % (37-47); Hemoglobin 14.1 g/dL (12.0-15.0); Lymphocyte # 1.69 X10^3/ul (0.83-4.51); Lymphocyte % 28.5 % (19-41); Mean Corp Hgb Conc 33.3 g/dL (32-36); Mean Corpuscular Hgb 31.7 pg (27.0-32.0); Mean Corpuscular Volume 95.1 fL (81-99); Mean Platelet Vol. 10.5 fl (6.2-12.0); Monocyte# 0.64 X10^3/uL; Monocyte% 10.8 % (0-10); NRBC Flagged by Analyzer 0 % (0-5); Neutrophil # 3.42 X10^3/uL (2.7-7.7); Neutrophil % 57.6 % (47-70); Platelet Count 216 K/mm3 (150-450); RBC Distribution Width CV 14.6 % (11.6-14.6); RBC Distribution Width SD 49.9 fl (35.1-43.9); Red Blood Count 4.45 M/mm3 (4.2-5.4); White Blood Count 5.9 K/mm3 (4.4-11.0)
[2021-09-18 15:24] LABS: AST(SGOT) 26 U/L (15-37); Alanine Aminotransfer ALT/SGPT 36 U/L (13-56); Albumin, Serum 3.4 g/dL (3.2-5.0); BUN 18 mg/dL (7-18); Creatinine, Serum 0.73 mg/dL (0.55-1.02); EST Glomerular Filtration Rate 85 mL/min (>60); Est Glom Filt Rate - Afr Amer 103 mL/min (>60)
== END 2021-09-27 18:00 | disposition home or self-care (01) ==
LOC: MTLAB 13:01
PROVIDERS: PCP Family Medicine; Referring Provider Internal Medicine Rheumatology; Visit Provider Internal Medicine Rheumatology
DX: M05.89 Other rheumatoid arthritis with rheumatoid factor of multiple sites (principal)
CPT/HCPCS: 36415; 82040; 82565; 84450; 84460; 84520; 85025; 86140

== ENCOUNTER 2021-09-27 08:21 | Outpatient (CLI) | payer MEDICARE, OTHER, SELFPAY ==
--- NOTE | 2021-09-27 08:24 | US_ITS ---
STUDY: ABDOMINAL ULTRASOUND - RIGHT UPPER QUADRANT REASON FOR VISIT: Female, 66 years old Right flank pain TECHNIQUE: Ultrasound evaluation of the right upper quadrant was performed with real-time and static ramírez-scale imaging. TECHNICAL QUALITY: Adequate. COMPARISON: None. FINDINGS: Liver: The liver measures 12.9 cm. There is normal echogenicity of the liver. The bile ducts are within normal limits. There is hepatic color flow. The direction of portal flow is hepatopetal. There is no demonstrated mass lesion. Gallbladder: Normal distended gallbladder. The gallbladder wall measures 2.3 mm. There is a negative sonographic Baumann''s sign. There is no pericholecystic fluid. There are no gallstones. Common Bile Duct (C.B.D.): The common bile duct measures 4.8 mm. Pancreas: Normal size of the head, body and tail of the pancreas. There is normal echogenicity of the pancreas. There is no demonstrated pancreatic mass or cyst. Right Kidney: Normal size of the right kidney. The right kidney measures 10.2 cm x 4.7 cm x 3.1 cm. Normal renal cortex. The right cortex measures 1.0 cm. There is no demonstrated renal mass or cyst. There is no right hydronephrosis. US/Abdomen Limited IMPRESSION: Normal right upper quadrant ultrasound examination. Electronically Signed: Johnny Acosta MD at 13:18 EDT ,
== END 2021-09-27 23:59 | disposition home or self-care (01) ==
LOC: US 08:23
PROVIDERS: PCP Family Medicine; Referring Provider Family Medicine; Visit Provider Family Medicine
DX: R10.9 Unspecified abdominal pain (principal)
CPT/HCPCS: 76705

== ENCOUNTER 2022-05-31 10:10 | Outpatient (CLI) | payer MEDICARE, OTHER, SELFPAY ==
[2022-05-31 12:49] LABS: Vitamin B12 828 pg/mL (211-911)
[2022-05-31 12:57] LABS: Valproic Acid (Depakene) Level 79 ug/mL (50-100)
[2022-05-31 13:12] LABS: ALB/GLOB Ratio 1.2 RATIO (0.9-2.4); AST(SGOT) 68 U/L (15-37); Alanine Aminotransfer ALT/SGPT 79 U/L (13-56); Albumin, Serum 3.6 g/dL (3.2-5.0); Alkaline Phosphatase 60 U/L (45-117); Anion Gap 6 (5-15); BUN 19 mg/dL (7-18); BUN/Creat Ratio 27.6 RATIO (10-20); Calcium,Total 8.6 mg/dL (8.5-10.1); Chloride 103 mmol/L (98-107); Creatinine, Serum 0.69 mg/dL (0.55-1.02); EST Glomerular Filtration Rate 90 mL/min (>60); Est Glom Filt Rate - Afr Amer 109 mL/min (>60); Globulin 3.1 g/dL (2.2-4.2); Glucose 88 mg/dL (74-106); Potassium 4.1 mmol/L (3.5-5.1); Protein, Total 6.7 g/dL (6.4-8.2); Sodium Level 139 mmol/L (136-145); Thyroid Stim Hormone (TSH) 2.23 uIU/mL (0.358-3.74)
== END 2022-05-31 23:59 | disposition home or self-care (01) ==
LOC: MTLAB 10:12
PROVIDERS: PCP Family Medicine; Referring Provider Psychiatry & Neurology Neurology; Visit Provider Psychiatry & Neurology Neurology
DX: G43.711 Chronic migraine without aura, intractable, with status migrainosus (principal); R41.3 Other amnesia
CPT/HCPCS: 36415; 80053; 80164; 82140; 82607; 84443

== ENCOUNTER → 2022-11-07 | Outpatient (CLI) | payer MEDICARE, OTHER, SELFPAY ==
--- NOTE | 2022-11-07 08:03 | BI_ITS ---
MAMMOGRAPHY - BILATERAL SCREENING REASON FOR EXAM: Female, 67 years old. Routine annual screening examination. PERTINENT HISTORY: Aunt with breast cancer. History of prior left stereotactic breast biopsies. TECHNIQUE: Digital bilateral breast ray (3D mammographic acquisition) in the CC and MLO projections. 2-D mediolateral oblique (MLO) and craniocaudad (CC) views of both breasts were obtained. CAD: Full Field Digital Mammography with Computer Added Detection was performed. COMPARISON: Comparison is made with prior study of September 06, 2021 August 24, 2020. FINDINGS: Breast Composition: The breasts are heterogeneously dense, which may obscure small masses. There are no dominant masses or suspicious calcifications. Stable nodular density with a central decreased density in the deep inferior midportion of the left breast. No other significant abnormalities are identified. There has been no significant change since the prior study. BI/SCRN MAMM (CAD)W/RAY BILAT IMPRESSION: Stable bilateral screening mammogram. Yearly follow-up mammogram recommended. (A) ASSESSMENT CATEGORY: BIR ADS Category 2: Benign. A letter regarding these results will be sent to the patient by the facility within 30 days. Approximately 10% of breast cancers are not detected by mammography. A normal mammogram should not delay biopsy of a clinically suspicious abnormality. [id number] Electronically Signed: Johnny Acosta MD at 9:29 EDT ,
== END | disposition home or self-care (01) ==
LOC: OPBI 08:00
PROVIDERS: PCP Family Medicine; Referring Provider Family Medicine; Visit Provider Family Medicine
DX: Z12.31 Encounter for screening mammogram for malignant neoplasm of breast (principal); Z80.3 Family history of malignant neoplasm of breast
CPT/HCPCS: 77063; 77067

== ENCOUNTER → 2023-02-18 | Outpatient (CLI) | payer MEDICARE, OTHER, SELFPAY ==
--- NOTE | 2023-02-18 11:16 | RAD_ITS ---
STUDY: X-RAY - LUMBAR SPINE REASON FOR EXAM: Female, 68 years old. Pain. TECHNIQUE: 2 view(s) of the lumbar spine were obtained. COMPARISON: None FINDINGS: Osteopenia. Normal lumbar lordosis. Mild levoscoliosis. 12 mm of anterolisthesis of L5 on S1. Diffuse lower thoracic and lumbosacral facet sclerosis. Anterior wedge compression deformity of L1, age undetermined. Diffuse moderate intervertebral disc space narrowing with osteophyte formation most marked at T12-L1 and L1-L2. Small linear calcification projected over the region of the left ureter which may represent ureterolithiasis. RAD/Lumbar Spine 2 or 3 Views IMPRESSION: Osteopenia with diffuse moderate lower thoracic and lumbosacral spondylosis. Anterior wedge compression deformity of L1, age undetermined. Questionable left ureterolithiasis. Electronically Signed: Anthony Cavazos MD at 9:52 EDT ,
--- NOTE | 2023-02-18 11:17 | RAD_ITS ---
STUDY: X-RAY - THORACIC SPINE REASON FOR EXAM: Female, 68 years old. Pain. TECHNIQUE: 2 view(s) of the thoracic spine were obtained. COMPARISON: None. FINDINGS: Osteopenia. Normal kyphosis of the thoracic spine. Mild thoracolumbar scoliosis. Mild anterior wedging of the L1 vertebral body, age undetermined. Diffuse mild intervertebral disc space narrowing most marked in the lower thoracic and upper lumbar spine. Normal soft tissues. RAD/Thoracic Spine 2 Views IMPRESSION: Osteopenia with anterior wedge compression deformity of L1, age undetermined and diffuse mild thoracic spondylosis most marked at T11-T12 and T12-L1. No other abnormality. Electronically Signed: Anthony Cavazos MD at 9:50 EDT ,
== END | disposition home or self-care (01) ==
PROVIDERS: PCP Family Medicine; Referring Provider Nurse Practitioner Acute Care; Visit Provider Nurse Practitioner Acute Care
DX: M51.26 Other intervertebral disc displacement, lumbar region (principal)
CPT/HCPCS: 72070; 72100

== ENCOUNTER → 2023-07-16 | Outpatient (CLI) | payer MEDICARE, OTHER, SELFPAY ==
--- OUTSIDE RECORDS SUMMARY | 2023-07-16 14:23 | XMS RPT_ITS | CCD ---
Author Name Unknown Address [address] [facility] [address] [place] [address] Organization [facility] Care Team Providers Care Patient Sitter Name Role Phone Joanne Arnold Unavailable Sebastian Felder Unavailable Unavailable Sebastian Felder Unavailable Unavailable Joanne Arnold Delia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 Provider Joanne Arnold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 Provider [phone] Joanne Arnold MD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 Provider Unavailable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 Provider UnavailJoanne Springer MD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 Provider ALARCONMICHAELA Attending Unavailable JOLLIFF, JOANNE S Referring Unavailable JOLLIFF, JOANNE S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 Unavailable ALARCONMICHAELA Attending Unavailable ALARCON MICHAELA Referring Unavailable JOLLIFF, JOANNE S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 Unavailable ALARCONMICHAELA Attending Unavailable ALARCON, MICHAELA Referring Unavailable JOLLIFF, JOANNE S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 Unavailable ALARCONMICHAELA Attending Unavailable JOLLIFF, JOANNE S Referring Unavailable JOLLIFF, JOANNE S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 Unavailable Joanne Arnold MD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 Provider [phone] JOANNE ARNOLD MD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 Physician MUKESH RAMIREZ DO Attending Unavailable IDALIA GOMEZ., DR. LOPEZ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 Unavailable Joanne Arnold MD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 Provider JOANNE ARNOLD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 Unavailable ANDREA EWING Attending Unavailable ANDREA EWING Attending Unavailable GARRETTLLIFF, JOANNE DELIA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 Unavailable ANDREA EWING Attending Unavailable JOLLIFF, JOANNE DELIA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 Unavailable JOLLIFF, JOANNE DELIA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 Unavailable SARA GRANADOS Attending Unavailabl e JOLLIFF, JOANNE DELIA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 Unavailable FALLS, SARA PEDRAZA Attending Unavailabl e JOLLIFF, JOANNE DELIA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 Unavailable FALLS, SARA PEDRAZA Attending Unavailabl e Joanne Arnold MD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 Provider [phone] JOLLIFF, JOANNE DELIA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 Unavailable JOLLIFF, JOANNE DELIA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 Unavailable ANDREA EIWNG Referring Unavailable JOLLIFF, JOANNE DELIA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 Unavailable JOLLIFF, JOANNE DELIA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 Unavailable FALLS, SARA PEDRAZA Referring Unavailabl e JOLLIFF, JOANNE DELIA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 Unavailable JOLLIFF, JOANNE DELIA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 Unavailable FALLS, SARA PEDRAZA Admitting Unavailabl e FALLS, SARA PEDRAZA Referring Unavailabl e JOLLIFF, JOANNE DELIA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 Unavailable JOLLIFF, JOANNE S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 Unavailable FOSTER, BRADFORD Attending Unavailable BRADFORD HUSSEIN Referring Unavailable SELF, SELF Referring Unavailable ALEXA, GHANSHYAM Attending Unavailable JOLLIFF, JOANNE S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 Unavailable ALEXA, GHANSHYAM Referring Unavailable JOLLIFF, JOANNE S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 Unavailable ALEXAGHANSHYAM Attending Unavailable JOLLIFF, JOANNE S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 Unavailable BRADFORD HUSSEIN Attending Unavailable BRADFORD HUSSEIN Referring Unavailable JOLLIFF, JOANNE S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 Unavailable SELF, SELF Referring Unavailable JOVITA, BRADFORD Attending Unavailable JOLLIFF, JOANNE S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 Unavailable SELF, SELF Referring Unavailable ALEXAGHANSHYAM Attending Unavailable Allergies Allergy Classification Reported Allergen(s) Allergy Type Date of Onset Reaction(s) Facility (20 sources) atropine / diphenoxylate; Translations: [DIPHENOXYLATE- ATROPINE] Propensity to adverse reactions to drug 6 GI Intolerance, Diarrhea [facility] Work Phone: (20 sources) diclofenac; Translations: [DICLOFENAC] Propensity to adverse reactions to drug 6 GI Intolerance, Diarrhea [facility] Work Phone: (11 sources) Etodolac Drug Allergy [address] [facility] (3 sources) Etodolac Propensity to adverse reactions to drug [address] [facility] Medications Current Medications Medication Drug Class(es) Dates Sig (Normalized) Sig (Original) acetaminophen 325 mg oral tablet (11 sources) Start: 06-18-2022 take 2 tablets by mouth every six hours as needed Acetaminophen 325 MG tablet Take 2 tablets by mouth every 6 hours as needed for Mild Pain. 50 tablet 0 06/18/2022 Active Completed/Discontinued Medications Medication Drug Class(es) Dates Sig (Normalized) Sig (Original) amitriptyline hydrochloride 25 mg oral tablet (20 sources) Tricyclic Antidepressant Start: 06-19-2022 End: 06-19-2022 take 50 mg by mouth once daily at bedtime 50 mg, Oral, DAILY AT BEDTIME, First dose on Fri06/19/22 at 2100, Until Discontinued Problems Active Problems Problem Classification Problem Date Documented Da te Episodic/Chronic Headache; including migraine (5 sources) Refractory migraine without aura; Translations: [Chronic migraine without aura, intractable, with status migrainosus] Onset: 07-19-2022 Chronic Osteoarthritis (20 sources) Degenerative joint disease of hand; Translations: [Osteoarthritis] Onset: 03-08-2022 Chronic Osteoporosis (14 sources) Senile osteoporosis; Translations: [Age-related osteoporosis without current pathological fracture] Onset: 06-06-2023 Chronic Other aftercare (5 sources) 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; Translations: [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] Episodic Other aftercare (5 sources) Patient encounter status; Translations: [Encounter for therapeutic drug level monitoring] Episodic Other aftercare (2 sources) Drug therapy finding; Translations: [Other half-way (current) drug therapy] Episodic Other aftercare (1 source) Taking high risk medication; Translations: [Other half-way (current) drug therapy] 07-15-2023 Episodic Other connective tissue disease (3 sources) History of total replacement of right hip joint; Translations: [Presence of right artificial hip joint] Chronic Other connective tissue disease (2 sources) Presence of right artificial hip joint; Translations: [Presence of right artificial hip joint] Onset: 10-17-2022 Chronic Other connective tissue disease (1 source) Bilateral trochanteric bursitis; Translations: [Trochanteric bursitis, right hip] Episodic Other non-traumatic joint disorders (2 sources) Hip pain; Translations: [Pain in right hip] Episodic Other non-traumatic joint disorders (2 sources) Pain in right hip; Translations: [Pain in right hip] Onset: 06-19-2023 Episodic Other screening for suspected conditions (not mental disorders or infectious disease) (5 sources) Decreased vitamin D; Translations: [Other specified abnormal findings of blood chemistry] Onset: 05-08-2023 Episodic Pathological fracture (4 sources) Primary osteoporosis; Translations: [Age-related osteoporosis with current pathological fracture, unspecified site, subsequent encounter for fracture with routine healing] Onset: 06-09-2023 07-02-2023 Episodic Phlebitis; thrombophlebitis and thromboembolism (1 source) H/O: thrombosis; Translations: [Personal history of other venous thrombosis and embolism] Episodic Rheumatoid arthritis and related disease (20 sources) Rheumatoid arthritis of multiple joints; Translations: [Rheumatoid arthritis] Onset: 10-04-2022 Chronic Spondylosis; intervertebral disc disorders; other back problems (20 sources) Cervical spondylosis; Translations: [Other spondylosis with myelopathy, cervical region] Onset: 01-02-2022 Chronic Unclassified (1 source) intermediate frame tender (current) use of 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 agent; Translations: [intermediate frame tender (current) use of 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 agent] Onset: 10-04-2022 Past or Other Problems Problem Classification Problem Date Documented Date Episodic/Chronic Other non-traumatic joint disorders (20 sources) Pain in right hip joint; Translations: [Pain in right hip] Onset: 01-02-2022 Resolved: 10-08-2022 Episodic Residual codes; unclassified (2 sources) Other amnesia; Translations: [Other amnesia] Onset: 07-19-2022 Episodic Spondylosis; intervertebral disc disorders; other back problems (20 sources) Cervico-occipital neuralgia; Translations: [Occipital neuralgia] Onset: 01-02-2022 Episodic Unclassified (9 sources) Onset: 06-19-2022 Resolved: 06-19-2022 06-19-2022 Unclassified (1 source) prison (current) use of 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 agent; Translations: [intermediate frame tender (current) use of 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 agent] Onset: 10-04-2022 Results Test Name Value Interpretation Reference Range Facil ity Vital Signs Date Time Vital Sign Value Performing Clinician Facility 07-02-2023 09:12-0500 Body temperature 98.2 [degF] Room [facility] 07-02-2023 09:12-0500 Diastolic blood pressure 83 mm[Hg] Room [facility] 07-02-2023 09:12-0500 Heart rate 73 /min [facility] 07-02-2023 09:12-0500 SaO2% (BldA) [Mass fraction] 96 % [facility] 07-02-2023 09:12-0500 Systolic blood pressure 149 mm[Hg] [facility] 07-02-2023 09:06-0500 Body mass index (BMI) [Ratio] 25.97 kg/m2 [facility] 07-02-2023 09:06-0500 Body weight 60.33 kg [facility] 06-19-2023 09:48-0500 Body height 152.4 cm Bradford Hussein MD Work Phone: [facility] 06-19-2023 09:48-0500 Body mass index (BMI) [Ratio] 26.17 kg/m2 Bradford Hussein MD Work Phone: [facility] 06-19-2023 09:48-0500 Body temperature 98.2 [degF] Bradford Hussein MD Work Phone: [facility] 06-19-2023 09:48-0500 Body weight 60.78 kg Bradford Hussein MD Work Phone: [facility] 06-06-2023 13:05-0500 Body mass index (BMI) [Ratio] 27.3 kg/m2 Sara Falls DO Work Phone: [facility] 06-06-2023 13:05-0500 Body weight 63.41 kg Sara Falls DO Work Phone: [facility] 06-06-2023 13:05-0500 Diastolic blood pressure 84 mm[Hg] Sara Falls DO Work Phone: [facility] 06-06-2023 13:05-0500 Heart rate 69 /min Sara Falls DO Work Phone: [facility] 06-06-2023 13:05-0500 Systolic blood pressure 130 mm[Hg] Sara Falls DO Work Phone: [facility] 10-17-2022 11:03-0400 Body height 152.4 cm Bradford Hussein MD Work Phone: [facility] 10-17-2022 11:03-0400 Body mass index (BMI) [Ratio] 26.76 kg/m2 Bradford Hussein MD Work Phone: [facility] 10-17-2022 11:03-0400 Body weight 62.14 kg Bradford Hussein MD Work Phone: [facility] 10-08-2022 09:55-0400 Body mass index (BMI) [Ratio] 27.15 kg/m2 Andrea Ewing MD Work Phone: [facility] 10-08-2022 09:55-0400 Body weight 63.05 kg Andrea Ewing MD Work Phone: [facility] 10-08-2022 09:55-0400 Diastolic blood pressure 85 mm[Hg] Andrea Ewing MD Work Phone: [facility] 10-08-2022 09:55-0400 Heart rate 71 /min Andrea Ewing MD Work Phone: [facility] 10-08-2022 09:55-0400 Systolic blood pressure 137 mm[Hg] Andrea Ewing MD Work Phone: [facility] 07-31-2022 09:37-0500 Body height 152.4 cm Ghanshyam Dye [employer] Work Phone: [facility] 07-31-2022 09:37-0500 Body mass index (BMI) [Ratio] 26.76 kg/m2 Ghanshyam Dye [employer] Work Phone: [facility] 07-31-2022 09:37-0500 Body temperature 96.6 [degF] Ghanshyam Dye [employer] Work Phone: [facility] 07-31-2022 09:37-0500 Body weight 62.14 kg Ghanshyam Dye [employer]ING [employer] Work Phone: [facility] 07-10-2022 11:29-0500 Body height 152.4 cm Ghanshyam Dye APRN-RAGS LABORER Work Phone: [email or web address] 07-10-2022 11:29-0500 Body mass index (BMI) [Ratio] 26.76 kg/m2 Ghanshyam Dye APRN-RAGS LABORER Work Phone: [facility] 07-10-2022 11:29-0500 Body temperature 98.1 [degF] Ghanshyam Dye APRN-RAGS LABORER Work Phone: [facility] 07-10-2022 11:29-0500 Body weight 62.14 kg Ghanshyam Dye APRN-[employer]AG[employer]ORER Work Phone: [facility] 06-19-2022 07:45-0500 SaO2% (BldA) [Mass fraction] 97 % Bradford Hussein MD Work Phone: [facility] 06-19-2022 07:30-0500 Body temperature 98.8 [degF] Bradford Hussein MD Work Phone: [facility] 06-19-2022 07:30-0500 Diastolic blood pressure 59 mm[Hg] Bradford Hussein MD Work Phone: [email or web address] 06-19-2022 07:30-0500 Heart rate 74 /min Bradford Hussein MD Work Phone: [email or web address] 06-19-2022 07:30-0500 Respiratory rate 18 /min Bradford Hussein MD Work Phone: [facility] 06-19-2022 07:30-0500 Systolic blood pressure 103 mm[Hg] Bradford Hussein MD Work Phone: [email or web address] 06-19-2022 03:52-0500 Body mass index (BMI) [Ratio] 31.99 kg/m2 Bradford Hussein MD Work Phone: [facility] 06-19-2022 03:52-0500 Body weight 74.3 kg Bradford Hussein MD Work Phone: [facility] 06-18-2022 16:20-0500 Body height 152.4 cm Bradford Hussein MD Work Phone: [facility] 04-10-2022 14:45-0400 Body height 152.5 cm Bradford Hussein MD Work Phone: [facility] 04-10-2022 14:45-0400 Body mass index (BMI) [Ratio] 26.56 kg/m2 Bradford Hussein MD Work Phone: [facility] 04-10-2022 14:45-0400 Body temperature 96.8 [degF] Bradford Hussein MD Work Phone: [facility] 04-10-2022 14:45-0400 Body weight 61.78 kg Bradford Hussein MD Work Phone: [facility] 03-21-2022 10:17-0400 Body height 152.4 cm Michaela Alarcon MD Work Phone: [facility] 03-21-2022 10:17-0400 Body mass index (BMI) [Ratio] 26.17 kg/m2 Michaela Alarcon MD Work Phone: [facility] 03-21-2022 10:17-0400 Body weight 60.78 kg Michaela Alarcon MD Work Phone: [facility] 03-21-2022 10:17-0400 Diastolic blood pressure 86 mm[Hg] Michaela Alarcon MD Work Phone: [facility] 03-21-2022 10:17-0400 Heart rate 66 /min Michaela Alarcon MD Work Phone: [facility] 03-21-2022 10:17-0400 Respiratory rate 18 /min Michaela Alarcon MD Work Phone: [facility] 03-21-2022 10:17-0400 SaO2% (BldA) [Mass fraction] 95 % Michaela Alarcon MD Work Phone: [facility] 03-21-2022 10:17-0400 Systolic blood pressure 156 mm[Hg] Michaela Alarcon MD Work Phone: [facility] 03-08-2022 09:24-0400 Diastolic blood pressure 86 mm[Hg] Michaela Alarcon MD Work Phone: [facility] 03-08-2022 09:24-0400 Heart rate 58 /min Michaela Alarcon MD Work Phone: [facility] 03-08-2022 09:24-0400 Respiratory rate 18 /min Michaela Alarcon MD Work Phone: [facility] 03-08-2022 09:24-0400 SaO2% (BldA) [Mass fraction] 95 % Michaela Alarcon MD Work Phone: [facility] 03-08-2022 09:24-0400 Systolic blood pressure 145 mm[Hg] Michaela Alarcon MD Work Phone: [facility] 02-07-2022 14:25-0400 Body height 153.7 cm Michaela Alarcon MD Work Phone: [facility] 02-07-2022 14:25-0400 Body mass index (BMI) [Ratio] 25.74 kg/m2 Michaela Alarcon MD Work Phone: [facility] 02-07-2022 14:25-0400 Body weight 60.78 kg Michaela Alarcon MD Work Phone: [facility] 02-07-2022 14:25-0400 Diastolic blood pressure 69 mm[Hg] Michaela Alarcon MD Work Phone: [facility] 02-07-2022 14:25-0400 Heart rate 68 /min Michaela Alarcon MD Work Phone: [facility] 02-07-2022 14:25-0400 Respiratory rate 15 /min Michaela Alarcon MD Work Phone: [facility] 02-07-2022 14:25-0400 SaO2% (BldA) [Mass fraction] 94 % Michaela Alarcon MD Work Phone: [facility] 02-07-2022 14:25-0400 Systolic blood pressure 102 mm[Hg] Michaela Alarcon MD Work Phone: [facility] 11-27-2021 14:04-0400 Body mass index (BMI) [Ratio] 25.78 kg/m2 Andrea Ewing MD Work Phone: [facility] 11-27-2021 14:04-0400 Body weight 59.88 kg Andrea Ewing MD Work Phone: [facility] 11-27-2021 14:04-0400 Diastolic blood pressure 80 mm[Hg] Andrea Ewing MD Work Phone: [facility] 11-27-2021 14:04-0400 Heart rate 74 /min Andrea Ewing MD Work Phone: [facility] 11-27-2021 14:04-0400 Systolic blood pressure 123 mm[Hg] Andrea Ewing MD Work Phone: [facility] 03-04-2018 09:01-0400 BMI (Body Mass Index) 24.69 kg/m2 [facility] 03-04-2018 09:01-0400 BP Diastolic 83 mm[Hg] [facility] 03-04-2018 09:01-0400 BP Systolic 145 mm[Hg] [facility] 03-04-2018 09:01-0400 Pulse (Heart Rate) 70 /min [facility] 03-04-2018 09:01-0400 Weight 57[address] [facility] 09-01-2017 10:10-0500 BMI (Body Mass Index) 24.94 kg/m2 [facility] 09-01-2017 10:10-0500 BP Diastolic 84 mm[Hg] [facility] 09-01-2017 10:10-0500 BP Systolic 145 mm[Hg] [facility] 09-01-2017 10:10-0500 Pulse (Heart Rate) 71 /min [facility] 09-01-2017 10:10-0500 Weight 57.92 kg Gerardo [facility] 05-01-2017 08:59-0400 BMI (Body Mass Index) 23.85 kg/m2 [facility] Work Phone: 05-01-2017 08:59-0400 BP Diastolic 86 mm[Hg] Gerardo Whipple [facility] Work Phone: 05-01-2017 08:59-0400 BP Systolic 145 mm[Hg] Gerardo Whipple [facility] Work Phone: 05-01-2017 08:59-0400 Height 152.4 cm Gerardo Whipple [facility] Work Phone: 05-01-2017 08:59-0400 Pulse (Heart Rate) 79 /min Gerardo Whipple [facility] Work Phone: 05-01-2017 08:59-0400 Weight 55.38 kg Gerardo Whipple [facility] Work Phone: Encounters Encounter Date Encounter Type Care Provider Facility Start: 07-15-2023 Orders Only Sara Granados DO Work Phone: [facility] Procedures Date Procedure Procedure Detail Performing Clinician Start: 07-02-2023 Creatinine blood Sara rios Darwin DO Work Phone: Start: 06-19-2022 Complete blood count with white cell differential, automated Ghanshyam Dye APRN-[employer]AGS LABORER Work Phone: Start: 06-18-2022 Blood count hematocrit Rohini [employer] Work Phone: Start: 06-18-2022 Blood count hematocrit Rohini M [employer] Work Phone: Start: 06-18-2022 Gluc bld gluc mntr d ev cleared fda spec home use Bradford Hussein MD Work Phone: Start: 06-18-2022 Radiologic examinati on pelvis 1/2 views Ghanshyam Dye APRN-RAGS LABORER Work Phone: Start: 06-18-2022 End: 06-18-2022 Arthrp acetblr/prox fem prostc agrft/algrft Bradford Hussein MD Work Phone: Start: 06-18-2022 Blood group typing, RH phenotyping Bradford Hussein MD Work Phone: Start: 03-08-2022 LARGE JOINT/BURSA IN JECTION AND/OR ASPIRATION Michaela Alarcon MD Work Phone: Start: 11-27-2021 End: 11-27-2021 Arthrocentesis aspir&/inj major jt/bursa w/o us Andrea Ewing MD Work Phone: Start: 09-06-2021 Burton Tran Work Phone: Plan of Treatment Date Care Activity Detail Author Start: 10-08-2023 End: 10-08-2023 Patient encounter procedure 10/08/2023 8:30 AM EDT Office Visit [facility] [address] [place] [address] [place] [phone] Andrea Ewing MD [address] [place] [id number] [facility] Start: 09-05-2023 End: 09-05-2023 Patient encounter procedure 09/05/2023 10:45 AM EST Office Visit [facility]Note 2] Medicine [address] [place] [phone] Sara Granados DO [address] [place] [id number] [facility] Start: 07-02-2023 End: 07-02-2023 ambulatory 07/02/2023 9:00 AM EST Infusion/Injection [facility] [address] [place] [phone] [facility] Start: 06-18-2023 End: 06-18-2023 Patient encounter procedure 06/18/2023 Office Visit Orthopaedics Ghanshyam Dye, [employer] [address] [place] [address] [facility] Start: 02-28-2023 COVID-19 VACCINE ( season) COVID-19 VACCINE () [facility] Start: 02-28-2023 Influenza vaccination Sequential Influenza Vaccine (#1) [facility] Start: 10-17-2022 End: 10-17-2022 Patient encounter procedure 10/17/2022 Office Visit Orthopaedics Bradford Hussein MD [address] [place] [address] [facility] Start: 09-06-2022 Screening for malignant neoplasm of breast Mammogram [facility] Start: 08-29-2022 Tetanus vaccination [facility] Start: 08-21-2022 End: 08-21-2022 Patient encounter procedure 08/21/2022 Office Visit Orthopedic Surgery Andrea Ewing MD [address] [place] [id number] [facility] Start: 07-31-2022 End: 07-31-2022 Patient encounter procedure 07/31/2022 Office Visit Orthopaedics Ghanshyam Dye, [employer]ING [employer] [address] [place] [address] [facility] Start: 07-10-2022 End: 07-10-2022 Patient encounter procedure 07/10/2022 Office Visit Orthopaedics Ghanshyam Dye, [employer]ING [employer] [address] [place] [address] [facility] Start: 05-02-2022 End: 05-02-2022 Patient encounter procedure 05/02/2022 Office Visit Anesthesiology Pain Mgt Michaela Alarcon MD [address] [place] [address] [facility] Start: 04-30-2022 End: 04-30-2022 Patient encounter procedure 04/30/2022 Office Visit Anesthesiology Pain Michaela Lyle MD [address] [place] [address] [facility] Procedural Pain Management Start: 04-25-2022 End: 04-25-2022 ambulatory 04/25/2022 Pre-Operative Nurse Assessment Internal Medicine [facility] Start: 04-18-2022 End: 04-18-2022 Patient encounter procedure 04/18/2022 Office Visit Anesthesiology Pain Mgt Michaela Alarcon MD [address] [place] [address] [facility] Start: 04-15-2022 End: 04-15-2022 Patient encounter procedure 04/15/2022 Office Visit Anesthesiology Pain t Michaela Alarcon MD [address] [place] [address] [facility] Procedural Pain Management Start: 03-21-2022 End: 03-21-2022 Patient encounter procedure 03/21/2022 Office Visit Anesthesiology Pain Mgt Michaela Alarcon MD [address] [place] [address] [facility] Start: 03-08-2022 End: 03-08-2023 Fluoroscopy guided nasogastric tube procedure [facility] Immunizations Immunization Date Immunization Notes Care Provider Fa cili 06-15-2021 influenza virus vaccine, unspecified formulation Michaela Alarcon MD Work Phone: [facility] Payers Date Payer Category Payer Private Health Insurance [id number] 2021 Unknown [id number] 2020 Medicare [id number] 2020 Medicare [id number] 2014 Unknown xxxxxxxxxxxxxx [id number] 2014 Unknown [id number] 2014 Unknown [employer] OUT OF STATE [facility] [id number] 2014-Present [id number] 1955 Unknown [id number] 3 1955 Unknown [id number] 1955 Unknown [id number] 3 1955 Unknown [id number] [id number] 3 1955 Unknown [id number] 2.16.840.1.321807.3.579.2.62 7 1955 Unknown [id number] 2.16.840.1.518812.3.579.2.90 3 1955 Unknown [id number] 2.16.840.1.140273.3.579.2.90 3 1955 Unknown [id number] 2.16.840.1.463155.3.579.2.90 3 1955 Unknown [id number] 2.16.840.1.365681.3.579.2.90 3 1955 Unknown [id number] 2.16.840.1.890012.3.579.2.90 3 1955 Unknown [id number] 2.16.840.1.662617.3.579.2.90 3 1955 Unknown [id number] 2.16.840.1.927516.3.579.2.90 3 1955 Unknown [id number] 2.16.840.1.176832.3.579.2.90 3 1955 Unknown [id number] 2.16.840.1.365453.3.579.2.90 3 1955 Unknown [id number] 2.16.840.1.350294.3.579.2.90 3 1955 Unknown [id number] 2.16.840.1.885286.3.579.2.90 3 1955 Unknown [id number] 2.16.840.1.993188.3.579.2.90 3 1955 Unknown [id number] 2.16.840.1.701851.3.579.2.90 3 1955 Unknown [id number] 2.16.840.1.372169.3.579.2.98 3 1955 Unknown [id number] 2.16.840.1.483293.3.579.2.98 3 1955 Unknown [id number] 2.16.840.1.063212.3.579.2.98 3 1955 Unknown [id number] 2.16.840.1.229507.3.579.2.98 3 1955 Unknown [id number] 2.16.840.1.379322.3.579.2.98 3 1955 Unknown [id number] 2.16.840.1.942626.3.579.2.98 3 Private Health Insurance [employer]AL [employer] [id number] Effective for all dates [phone] [address] [address] [place] [address] [id number] Social History Date Type Detail Facility Start: 09-01-2017 End: 11-22-2021 Tobacco smoking status [facility] Never smoker [facility] Work Phone: Start: 1955 Sex Assigned At Not on file [facility] Work Phone: Start: 03-24-2019 End: 07-02-2023 Alcohol intake Current non-drinker of alcohol (finding) [facility] Start: 03-24-2019 End: 11-22-2021 Tobacco use and exposure Never used [facility] Start: 12-19-2015 End: 07-02-2023 Cigarette pack-years [facility] Start: 11-05-2021 End: 11-15-2021 Exposure to SARS-CoV-2 (event) Unable to assess [facility] Start: 11-11-2021 End: 10-07-2022 Exposure to SARS-CoV-2 (event) Not sure [facility] Tobacco smoking stat [facility] Tobacco smoking consumption unknown [facility] Start: 04-10-2022 End: 05-14-2022 Tobacco smoking status [facility] Ex-smoker [facility] History of tobacco use Current smoker [facility] History of tobacco use Cigarette Smoker [facility] History of tobacco use Passive smoker [facility] Start: 04-10-2022 End: 06-19-2023 Alcohol intake Lifetime non-drinker (finding) [facility] Tobacco smoking status No Smokin g Status Entered [facility] Sex Assigned At Female [facility] Start: 05-14-2022 Tobacco Comment Quit 20+ yrs ago [facility] Start: 12-25-2021 End: 07-02-2023 Tobacco use panel [facility] Start: 09-23-2018 Gender identity Identifies as female gender (finding) [facility] Start: 09-23-2018 Sexual orientation Heterosexual (finding) [facility] Medical Equipment Procedure Code Equipment Code Equipment Origin al Text Equipment Identifier Dates [facility] +5.0 [id number] Start: 06-18-2022 Clinical Notes 11-15-2021 to 07-02-2023 Nanci Reyes RN - 07/02/2023 11:49 AM Nanci Collado RN - 07/02/2023 11:29 AM Nanci Collado RN - 07/02/2023 11:12 AM ESTSamanstephanie Torres - 06/19/2023 9:40 AM ESTAttachments Note Date & Type Note Facility 07-02-2023 History of Present illness Narrative No reaction noted, discharged patient off of [facility] ambulatory IVPB Reclast completed, flushed line with NS, tolerated well IVPB Reclast initiated via pump, tolerating well documented in this encounter [facility] 06-19-2023 History of Present illness Narrative Ortho Nurse - Established Patient Intake Room#: 2 --- 1 yr follow-up for R THR. Pt rates her pain at a 0 today and stated hip is feeling great. Date: 06/19/2023 9:50 AM Patient: Heidi Mcintosh MR#: [id number] : 1955 Age: 68 y.o. Referring Physician: Self, Self Insurance: Payor: MEDICARE / Plan: MEDICARE A AND B / Product Type: *No Product type* / Chief Complaint Patient presents with Right Hip - Follow-up Visit Vitals Temp 98.2 F (36.8 C) Ht 1.524 m (5') Wt 60.8 kg (134 lb) BMI 26.17 kg/m Pain 1. Are you having pain? 2. On a scale from 1-10: Recent Labs No results found for: CRP No results found for: SEDRATE Lab Results Component Value Date WBC 7.5 06/19/2022 HGB 9.9 (L) 06/19/2022 HCT 29.9 (L) 06/19/2022 PLATELET 112 (L) 06/19/2022 MCV 95.9 06/19/2022 History Past Medical History: Diagnosis Date Arthritis Chronic rheumatic arthritis Essential hypertension, benign MD (myocardial infarction) stress MD, 05/2021 Migraine Pulmonary embolism Past Surgical History: Procedure Laterality Date ARTHROPLASTY HIP TOTAL Right 06/18/2022 Laterality: Right; Surgeon: Bradford Hussein MD; Location: [facility] OR APPENDECTOMY age 10 BUNIONECTOMY Bilateral TONSILLECTOMY Family History: Her family history is not on file. Social History: Her reports that she has quit smoking. Her smoking use included cigarettes. She has been exposed to tobacco smoke. She has never used smokeless tobacco. She reports that she does not drink alcohol and does not use drugs. Outpatient Medications Prior to Visit Medication Sig Dispense Refill Acetaminophen 325 MG tablet Take 2 tablets by mouth every 6 hours as needed for Mild Pain. 50 tablet 0 alendronate 70 MG tablet Take 1 tablet by mouth every 7 days. alendronate 70 mg tablet TAKE 1 TABLET BY MOUTH EVERY 7 DAYS WITH A FULL GLASS OF WATER ON AN EMPTY STOMACH. REMAIN UPRIGHT AND DO NOT EAT FOR NEXT 30 MINUTES amitriptyline 100 MG tablet Take 1 tablet by mouth at bedtime. Amitriptyline 50 MG tablet Take 1 tablet by mouth At bedtime. amitriptyline 75 MG tablet daily. Amoxicillin 500 MG capsule Take 4 capsules 1 hour before procedure 8 capsule 1 apixaban 2.5 MG tablet Take 1 tablet by mouth every 12 hours. This medication is for blood clot prevention 70 tablet 0 calcium carbonate 1250 (500 Ca) MG tablet Take 1 tablet by mouth 2 times daily with meals. UAORAZH-IAVQNYMMZ-[id number] PO Take by mouth daily. Celecoxib 200 MG capsule Take 1 capsule by mouth daily. 42 capsule 0 Dextromethorphan-Guaifenesin 60-1200 MG Tab SR 12 HR tablet Take 1 Dose by mouth every 12 hours as needed. Docusate 100 MG capsule Take 1 capsule by mouth 2 times daily. 60 capsule 0 Etanercept (Enbrel) 50 MG/ML Solution Prefilled Syringe injection Inject 1 mL under the skin once a week. folic acid 1 MG tablet Take 1 tablet by mouth daily. folic acid 1 mg tablet TAKE 1 TABLET BY MOUTH ONCE DAILY EXCEPT ON THE DAY METHOTREXATE IS TAKEN. hydroCODone-acetaminophen 5-325 MG tablet Take 1-2 tablets by mouth every 6 hours as needed for up to 7 days. Do not take over 4000mg acetaminophen daily. 30 tablet 0 hydroxychloroquine 200 MG tablet Take 2 tablets by mouth daily. Losartan 25 MG tablet Take 12.5 mg by mouth daily. methotrexate 2.5 MG tablet Take 4 tablets by mouth every 7 days. Misc Natural Products (GLUCOSAMINE CHONDROITIN ADV PO) Take by mouth daily. Multiple Vitamin (Multi-Vitamin) tablet Take 1 tablet by mouth daily. Prince-3 Fatty Acids (Fish Oil) 1000 MG capsule Take by mouth daily. omeprazole [address] capsule Take 1 capsule by mouth daily. 30 capsule 0 Polyethylene Glycol 3350 (MIRALAX PO) Take by mouth daily. propranolol 20 MG tablet Take 3 tablets by mouth daily. TAKE 1 TABLET BY MOUTH IN THE MORNING AND 2 TABLETS IN THE EVENING No facility-administered medications prior to visit. Allergies: She is allergic to etodolac, diclofenac, and diphenoxylate-atropine. HPI: Patient is here today for evaluation of her right operative hip. She is status post right total hip arthroplasty. She is about a year out, reports that she is doing well and is pleased with the outcome of the intervention. The hip feels better now than it did before, and she is not having any new symptoms with it. She denies pain and has no additional questions or concerns. PHYSICAL EXAM: The bilateral lower extremities were evaluated. The operative lower extremity is soft, nontender with full and supple motion of the hip. No pain, no impingement. No instability. The contralateral extremity has full motion, normal stability, no tenderness. Bilateral lower extremities have normal neurovascular status. DIAGNOSTIC STUDIES/INTERPRETATION: Plain film radiographs reviewed. She has a right total hip arthroplasty in good position and alignment. No evidence of prosthetic implant loosening or migration. IMPRESSION: Stable status post right total hip arthroplasty, doing well. PLAN: I reviewed my findings with Reena. Overall, I am pleased with the outcome of intervention. She has made an excellent recovery. I expect continued improvement in strength and mobility moving forward. I recommend followup in 2 years for repeat clinical and radiographic examination or sooner if any new symptoms develop. She will call with any questions or concerns in the meantime. I have reviewed the findings of my clinical staff below and agree with their assessment. Ortho Nurse - Established Patient Intake Room#: 2 --- 1 yr follow-up for R THR. Pt rates her pain at a 0 today and stated hip is feeling great. Date: 06/19/2023 9:50 AM Patient: Heidi Mcintosh MR#: [id number] : 1955 Age: 68 y.o. Referring Physician: Self, Self Insurance: Payor: MEDICARE / Plan: MEDICARE A AND B / Product Type: *No Product type* / Chief Complaint Patient presents with Right Hip - Follow-up Visit Vitals Temp 98.2 F (36.8 C) Ht 1.524 m (5') Wt 60.8 kg (134 lb) BMI 26.17 kg/m Pain 1. Are you having pain? 2. On a scale from 1-10: Recent Labs No results found for: CRP No results found for: SEDRATE Lab Results Component Value Date WBC 7.5 06/19/2022 HGB 9.9 (L) 06/19/2022 HCT 29.9 (L) 06/19/2022 PLATELET 112 (L) 06/19/2022 MCV 95.9 06/19/2022 History Past Medical History: Diagnosis Date Arthritis Chronic rheumatic arthritis Essential hypertension, benign MD (myocardial infarction) stress MD, 05/2021 Migraine Pulmonary embolism Past Surgical History: Procedure Laterality Date ARTHROPLASTY HIP TOTAL Right 06/18/2022 Laterality: Right; Surgeon: Bradford Hussein MD; Location: [facility] OR APPENDECTOMY age 10 BUNIONECTOMY Bilateral TONSILLECTOMY Family History: Her family history is not on file. Social History: Her reports that she has quit smoking. Her smoking use included cigarettes. She has been exposed to tobacco smoke. She has never used smokeless tobacco. She reports that she does not drink alcohol and does not use drugs. Outpatient Medications Prior to Visit Medication Sig Dispense Refill Acetaminophen 325 MG tablet Take 2 tablets by mouth every 6 hours as needed for Mild Pain. 50 tablet 0 alendronate 70 MG tablet Take 1 tablet by mouth every 7 days. alendronate 70 mg tablet TAKE 1 TABLET BY MOUTH EVERY 7 DAYS WITH A FULL GLASS OF WATER ON AN EMPTY STOMACH. REMAIN UPRIGHT AND DO NOT EAT FOR NEXT 30 MINUTES amitriptyline 100 MG tablet Take 1 tablet by mouth at bedtime. Amitriptyline 50 MG tablet Take 1 tablet by mouth At bedtime. amitriptyline 75 MG tablet daily. Amoxicillin 500 MG capsule Take 4 capsules 1 hour before procedure 8 capsule 1 apixaban 2.5 MG tablet Take 1 tablet by mouth every 12 hours. This medication is for blood clot prevention 70 tablet 0 calcium carbonate 1250 (500 Ca) MG tablet Take 1 tablet by mouth 2 times daily with meals. RNEJVGN-KTELURABN-DOCD PO Take by mouth daily. Celecoxib 200 MG capsule Take 1 capsule by mouth daily. 42 capsule 0 Dextromethorphan-Guaifenesin 60-1200 MG Tab SR 12 HR tablet Take 1 Dose by mouth every 12 hours as needed. Docusate 100 MG capsule Take 1 capsule by mouth 2 times daily. 60 capsule 0 Etanercept (Enbrel) 50 MG/ML Solution Prefilled Syringe injection Inject 1 mL under the skin once a week. folic acid 1 MG tablet Take 1 tablet by mouth daily. folic acid 1 mg tablet TAKE 1 TABLET BY MOUTH ONCE DAILY EXCEPT ON THE DAY METHOTREXATE IS TAKEN. hydroCODone-acetaminophen 5-325 MG tablet Take 1-2 tablets by mouth every 6 hours as needed for up to 7 days. Do not take over 4000mg acetaminophen daily. 30 tablet 0 hydroxychloroquine 200 MG tablet Take 2 tablets by mouth daily. Losartan 25 MG tablet Take 12.5 mg by mouth daily. methotrexate 2.5 MG tablet Take 4 tablets by mouth every 7 days. Misc Natural Products (GLUCOSAMINE CHONDROITIN ADV PO) Take by mouth daily. Multiple Vitamin (Multi-Vitamin) tablet Take 1 tablet by mouth daily. Prince-3 Fatty Acids (Fish Oil) 1000 MG capsule Take by mouth daily. omeprazole [address] capsule Take 1 capsule by mouth daily. 30 capsule 0 Polyethylene Glycol 3350 (MIRALAX PO) Take by mouth daily. propranolol 20 MG tablet Take 3 tablets by mouth daily. TAKE 1 TABLET BY MOUTH IN THE MORNING AND 2 TABLETS IN THE EVENING No facility-administered medications prior to visit. Allergies: She is allergic to etodolac, diclofenac, and diphenoxylate-atropine. documented in this encounter [facility] 06-10-2023 History of Present illness Narrative For future Enbrel PA's do not do under tier exception. PA has been approved but denied for tier exception. See attached approval/denial letter. Pt.'s Enbrel required a PA, the online form was completed and submitted through [employer] documented in this encounter [facility] 06-06-2023 History of Present illness Narrative Images from the original note were not included. RHEUMATOLOGY FOLLOW-UP VISIT Patient Name: Heidi Mcintosh : 1955 Medical Record: [id number] PCP: Joanne Arnold MD Referring provider: REASON FOR REFERRAL Seropositive RA ASSESSMENT AND PLAN Heidi Mcintosh is a 68 y.o. female who is being seen for evaluation of seropositive RA. Seropositive RA Was overall well-controlled, but some increase in stiffness after stopping methotrexate due to increased creatinine on 1 lab. Reviewed labs with repeat creatinine within normal range. After discussion with patient, we decided to restart methotrexate 10 mg weekly +1 mg of folic acid daily with careful lab monitoring. She will get repeat labs in 1 month to ensure renal function still within normal limits. Continue Enbrel 50 mg weekly. We will fill out assistance form for manufacture and sent in. Continue hydroxychloroquine 400 mg weekly. High risk medication use Advised patient to remain up-to-date on vaccines. She does not wish to receive the COVID-vaccine. Did discuss getting RSV vaccine. Labs as above Yearly eye exam to assess for hydroxychloroquine toxicity Osteoporosis Due for DEXA in October 2024. Thoracic/lumbar spine imaging with L1 compression fracture noted. Unsure if this is new or not. Discussed with patient options of continuing Fosamax for now and repeating DEXA in October versus starting Reclast. She is agreeable to starting Reclast. Risks of infusion including infusion reaction and flulike illness for several days asked after discussed with patient. Risks of osteonecrosis of the jaw also discussed. Will obtain calcium, vitamin D level, and creatinine prior to placing infusion plan orders. Return to clinic in 4 months Please do not hesitate to contact me with any questions or concerns. Sara Granados DO [facility] Rheumatology [address] [place] [address] O: [phone] F: [phone] The above recommendations were discussed with the patient who understands and agrees with the plan. Portions of this note were created with [employer]. Every effort was made to proofread, but sound-alike errors may occasionally occur. Please contact me for any clarification of note contents. HISTORY OF PRESENT ILLNESS Heidi Mcintosh is a 68 y.o. female who is here for follow-up of seropositive RA. PMH includes migraines, osteoarthritis, and osteoporosis. Interval history Intake form reviewed. Prior patient of Dr. Ewing. Patient here to establish care today. Overall, she is doing okay, but after stopping the methotrexate, notes that she has had increased stiffness. Also having some shoulder pain. Thinks that it was because of her renal function that Dr. Ewing wanted her to stop. Also having some back pain. Had some plain film imaging which showed an L1 compression fracture. She has been taking her alendronate. She is going to follow-up with pain medicine. Initial history Prior patient of Dr. Ewing and Dr. Whipple. Last seen by Dr. Ewing in September 2022. RA diagnosed in the late s/early 1999's. Also saw Dr. Lemuel Sadler who diagnosed RA at [facility], Dr. Gerardo Khan at [facility] who moved to [place], and Dr. Shannon Gonzalez at [facility]. Serologies DANNIE negative RF/CCP positive Pertinent imaging/pathology X-ray imaging reviewed the patient brought in which showed L1 compression fracture. Will scan into the chart. Rheumatology medications Humira-on for 9 months in 2007. SOCIAL AND FAMILY HISTORY Social History: reports that she has never smoked. She has never used smokeless tobacco. She reports that she does not drink alcohol and does not use drugs. Family History: family history includes Arthritis in her father and mother; Cancer in her mother; Diabetes in her father; Heart disease in her father. REVIEW OF SYSTEMS Reviewed in nursing note. Any adjustments/changes noted in HPI. PHYSICAL EXAM Vitals: 06/06/23 1305 BP: 130/84 Pulse: 69 Weight: 63.4 kg (139 lb 12.8 oz) Constitutional: ?No acute distress. Normal appearance. Not?ill-appearing. HENT: Head normocephalic?and atraumatic. Eyes: No discharge.??? Pulmonary: Pulmonary effort is normal. No?respiratory distress. Skin: Warm?and dry. No rash over exposed surfaces. Neurological: Alert. Psychiatric: ???Mood, affect, thought content normal. Musculoskeletal: No synovitis detected on exam. PAST MEDICAL HISTORY Past Medical History: Diagnosis Date Osteopenia Rheumatoid arthritis (HCC) MEDICATIONS Reviewed. LABS Pertinent autoimmune serologies noted in HPI. IMAGING Pertinent imaging noted in HPI. Rheumatology Follow-up Visit Intake: Since your last visit: Have you had any illnesses, infections, or hospitalizations []Yes [x]No Please specify: Have you been diagnosed with any other new health conditions? []Yes [x]No Please specify: Are you have any side effects from rheumatology medications? [x]Yes []No Have you started, changed, or stopped any medications? Stopped methotrexate and folic acid [x]Yes []No Symptoms: Are you having morning stiffness? [x]Yes []No How long? 5 to 10 min Are you having any joint swelling? []Yes []No Where? What joints are the most painful? Shoulders, left knee Are you having any of the following symptoms? []Dry eyes [x]Dry mouth []Oral ulcers []Nasal ulcers []Eye redness []Vision problems []Blood in urine []Blood in stool []Chest pain []Shortness of breath []Headaches []Color changes in fingers or toes []Unexplained rash []Photosensitivity []Hair loss []New blood clots Global Assessment: Consider all of the ways your disease affects you, how are you doing (0-10)? 3.0 documented in this encounter [facility] 10-17-2022 History of Present illness Narrative Ortho Nurse - Established Patient Intake Room#: 2 4 month Right STEPHANIE A/L, denies pain, doing great Date: 10/17/2022 11:05 AM Patient: Heidi Mcintosh MR#: [id number] : 1955 Age: 67 y.o. Referring Physician: Self, Self Insurance: Payor: MEDICARE / Plan: MEDICARE A AND B / Product Type: *No Product type* / Chief Complaint Patient presents with Right Hip - Post Op Visit Visit Vitals Ht 1.524 m (5') Wt 62.1 kg (137 lb) BMI 26.76 kg/m Pain Presence of Pain: denies pain/discomfort Recent Labs No results found for: CRP No results found for: SEDRATE Lab Results Component Value Date WBC 7.5 06/19/2022 HGB 9.9 (L) 06/19/2022 HCT 29.9 (L) 06/19/2022 PLATELET 112 (L) 06/19/2022 MCV 95.9 06/19/2022 History Past Medical History: Diagnosis Date Arthritis Chronic rheumatic arthritis Essential hypertension, benign MD (myocardial infarction) stress MD, 05/2021 Migraine Pulmonary embolism Past Surgical History: Procedure Laterality Date ARTHROPLASTY HIP TOTAL Right 06/18/2022 Laterality: Right; Surgeon: Bradford Hussein MD; Location: [facility] OR APPENDECTOMY age 10 BUNIONECTOMY Bilateral TONSILLECTOMY Family History: Her family history is not on file. Social History: Her reports that she has quit smoking. Her smoking use included cigarettes. She has been exposed to tobacco smoke. She has never used smokeless tobacco. She reports that she does not drink alcohol and does not use drugs. Outpatient Medications Prior to Visit Medication Sig Dispense Refill alendronate 70 MG tablet Take 1 tablet by mouth every 7 days. alendronate 70 mg tablet TAKE 1 TABLET BY MOUTH EVERY 7 DAYS WITH A FULL GLASS OF WATER ON AN EMPTY STOMACH. REMAIN UPRIGHT AND DO NOT EAT FOR NEXT 30 MINUTES amitriptyline 75 MG tablet daily. calcium carbonate 1250 (500 Ca) MG tablet Take 1 tablet by mouth 2 times daily with meals. VULMXYB-[id number] PO Take by mouth daily. Etanercept (Enbrel) 50 MG/ML Solution Prefilled Syringe injection Inject 1 mL under the skin once a week. folic acid 1 MG tablet Take 1 tablet by mouth daily. folic acid 1 mg tablet TAKE 1 TABLET BY MOUTH ONCE DAILY EXCEPT ON THE DAY METHOTREXATE IS TAKEN. hydroxychloroquine 200 MG tablet Take 2 tablets by mouth daily. methotrexate 2.5 MG tablet Take 4 tablets by mouth every 7 days. Misc Natural Products (GLUCOSAMINE CHONDROITIN ADV PO) Take by mouth daily. Multiple Vitamin (Multi-Vitamin) tablet Take 1 tablet by mouth daily. Prince-3 Fatty Acids (Fish Oil) 1000 MG capsule Take by mouth daily. Polyethylene Glycol 3350 (MIRALAX PO) Take by mouth daily. propranolol 20 MG tablet Take 3 tablets by mouth daily. TAKE 1 TABLET BY MOUTH IN THE MORNING AND 2 TABLETS IN THE EVENING Acetaminophen 325 MG tablet Take 2 tablets by mouth every 6 hours as needed for Mild Pain. 50 tablet 0 amitriptyline 100 MG tablet Take 1 tablet by mouth at bedtime. Amitriptyline 50 MG tablet Take 1 tablet by mouth At bedtime. Amoxicillin 500 MG capsule Take 4 capsules 1 hour before procedure 8 capsule 1 apixaban 2.5 MG tablet Take 1 tablet by mouth every 12 hours. This medication is for blood clot prevention 70 tablet 0 Celecoxib 200 MG capsule Take 1 capsule by mouth daily. 42 capsule 0 Dextromethorphan-Guaifenesin 60-1200 MG Tab SR 12 HR tablet Take 1 Dose by mouth every 12 hours as needed. Docusate 100 MG capsule Take 1 capsule by mouth 2 times daily. 60 capsule 0 hydroCODone-acetaminophen 5-325 MG tablet Take 1-2 tablets by mouth every 6 hours as needed for up to 7 days. Do not take over 4000mg acetaminophen daily. 30 tablet 0 Losartan 25 MG tablet Take 12.5 mg by mouth daily. omeprazole [address] capsule Take 1 capsule by mouth daily. 30 capsule 0 No facility-administered medications prior to visit. Current Outpatient Medications: alendronate 70 MG tablet, Take 1 tablet by mouth every 7 days. alendronate 70 mg tablet TAKE 1 TABLET BY MOUTH EVERY 7 DAYS WITH A FULL GLASS OF WATER ON AN EMPTY STOMACH. REMAIN UPRIGHT AND DO NOT EAT FOR NEXT 30 MINUTES, Disp: , Rfl: amitriptyline 75 MG tablet, daily., Disp: , Rfl: calcium carbonate 1250 (500 Ca) MG tablet, Take 1 tablet by mouth 2 times daily with meals., Disp: , Rfl: [id number]-[id number]-NZUL PO, Take by mouth daily., Disp: , Rfl: Etanercept (Enbrel) 50 MG/ML Solution Prefilled Syringe injection, Inject 1 mL under the skin once a week., Disp: , Rfl: folic acid 1 MG tablet, Take 1 tablet by mouth daily. folic acid 1 mg tablet TAKE 1 TABLET BY MOUTH ONCE DAILY EXCEPT ON THE DAY METHOTREXATE IS TAKEN., Disp: , Rfl: hydroxychloroquine 200 MG tablet, Take 2 tablets by mouth daily., Disp: , Rfl: methotrexate 2.5 MG tablet, Take 4 tablets by mouth every 7 days., Disp: , Rfl: Misc Natural Products (GLUCOSAMINE CHONDROITIN ADV PO), Take by mouth daily., Disp: , Rfl: Multiple Vitamin (Multi-Vitamin) tablet, Take 1 tablet by mouth daily., Disp: , Rfl: Prince-3 Fatty Acids (Fish Oil) 1000 MG capsule, Take by mouth daily., Disp: , Rfl: Polyethylene Glycol 3350 (MIRALAX PO), Take by mouth daily., Disp: , Rfl: propranolol 20 MG tablet, Take 3 tablets by mouth daily. TAKE 1 TABLET BY MOUTH IN THE MORNING AND 2 TABLETS IN THE EVENING, Disp: , Rfl: Acetaminophen 325 MG tablet, Take 2 tablets by mouth every 6 hours as needed for Mild Pain., Disp: 50 tablet, Rfl: 0 amitriptyline 100 MG tablet, Take 1 tablet by mouth at bedtime., Disp: , Rfl: Amitriptyline 50 MG tablet, Take 1 tablet by mouth At bedtime., Disp: , Rfl: Amoxicillin 500 MG capsule, Take 4 capsules 1 hour before procedure, Disp: 8 capsule, Rfl: 1 apixaban 2.5 MG tablet, Take 1 tablet by mouth every 12 hours. This medication is for blood clot prevention, Disp: 70 tablet, Rfl: 0 Celecoxib 200 MG capsule, Take 1 capsule by mouth daily., Disp: 42 capsule, Rfl: 0 Dextromethorphan-Guaifenesin 60-1200 MG Tab SR 12 HR tablet, Take 1 Dose by mouth every 12 hours as needed., Disp: , Rfl: Docusate 100 MG capsule, Take 1 capsule by mouth 2 times daily., Disp: 60 capsule, Rfl: 0 hydroCODone-acetaminophen 5-325 MG tablet, Take 1-2 tablets by mouth every 6 hours as needed for up to 7 days. Do not take over 4000mg acetaminophen daily., Disp: 30 tablet, Rfl: 0 Losartan 25 MG tablet, Take 12.5 mg by mouth daily., Disp: , Rfl: omeprazole [address] capsule, Take 1 capsule by mouth daily., Disp: 30 capsule, Rfl: 0 Allergies: She is allergic to etodolac, diclofenac, and diphenoxylate-atropine. HPI: Reena is here today for evaluation of her operative hip. She is status post right total hip arthroplasty with 30-40% abductor muscle repair. She is about 4 months out and reports that she is doing well and is pleased with the outcome of the intervention. The hip feels better now than it did before, and she is not having any new symptoms with it. She denies pain and has no additional questions or concerns at this time. PHYSICAL EXAM: The bilateral lower extremities were evaluated. The operative lower extremity is soft, nontender with full and supple motion of the hip. No pain, no impingement. No instability. The contralateral extremity has full motion, normal stability, no tenderness. Bilateral lower extremities have normal neurovascular status. DIAGNOSTIC STUDIES/INTERPRETATION: Plain film radiographs reviewed. She has a right total hip arthroplasty in good position and alignment. No evidence of prosthetic implant loosening or migration. IMPRESSION: Stable status post right total hip arthroplasty with 30-40% abductor muscle repair, doing well. PLAN: I reviewed my findings with patient. Overall, I am pleased with the outcome of intervention. She has made an excellent recovery. We discussed the stages of healing along with what symptoms can be expected at current stage of healing. She understands she is at the 50% ananth of total recovery. We then discussed the benefits of performing a variety of exercises at home, with a physical therapist or local gym. She understands and agrees to continue this in a slow, steady manner. I expect continued improvement in strength and mobility moving forward. I recommend followup at one year postop for repeat clinical and radiographic examination or sooner if any new symptoms develop. She will call with any questions or concerns in the meantime. I have reviewed the findings of my clinical staff below and agree with their assessment. Ortho Nurse - Established Patient Intake Room#: 2 4 month Right STEPHANIE A/L, denies pain, doing great Date: 10/17/2022 11:05 AM Patient: Heidi Mcintosh MR#: [id number] : 1955 Age: 67 y.o. Referring Physician: Self, Self Insurance: Payor: MEDICARE / Plan: MEDICARE A AND B / Product Type: *No Product type* / Chief Complaint Patient presents with Right Hip - Post Op Visit Visit Vitals Ht 1.524 m (5') Wt 62.1 kg (137 lb) BMI 26.76 kg/m Pain Presence of Pain: denies pain/discomfort Recent Labs No results found for: CRP No results found for: SEDRATE Lab Results Component Value Date WBC 7.5 06/19/2022 HGB 9.9 (L) 06/19/2022 HCT 29.9 (L) 06/19/2022 PLATELET 112 (L) 06/19/2022 MCV 95.9 06/19/2022 History Past Medical History: Diagnosis Date Arthritis Chronic rheumatic arthritis Essential hypertension, benign MD (myocardial infarction) stress MD, 05/2021 Migraine Pulmonary embolism Past Surgical History: Procedure Laterality Date ARTHROPLASTY HIP TOTAL Right 06/18/2022 Laterality: Right; Surgeon: Bradford Hussein MD; Location: [facility] APPENDECTOMY age 10 BUNIONECTOMY Bilateral TONSILLECTOMY Family History: Her family history is not on file. Social History: Her reports that she has quit smoking. Her smoking use included cigarettes. She has been exposed to tobacco smoke. She has never used smokeless tobacco. She reports that she does not drink alcohol and does not use drugs. Outpatient Medications Prior to Visit Medication Sig Dispense Refill alendronate 70 MG tablet Take 1 tablet by mouth every 7 days. alendronate 70 mg tablet TAKE 1 TABLET BY MOUTH EVERY 7 DAYS WITH A FULL GLASS OF WATER ON AN EMPTY STOMACH. REMAIN UPRIGHT AND DO NOT EAT FOR NEXT 30 MINUTES amitriptyline 75 MG tablet daily. calcium carbonate 1250 (500 Ca) MG tablet Take 1 tablet by mouth 2 times daily with meals. LHKUGVR-WALFBAHEX-UYUE PO Take by mouth daily. Etanercept (Enbrel) 50 MG/ML Solution Prefilled Syringe injection Inject 1 mL under the skin once a week. folic acid 1 MG tablet Take 1 tablet by mouth daily. folic acid 1 mg tablet TAKE 1 TABLET BY MOUTH ONCE DAILY EXCEPT ON THE DAY METHOTREXATE IS TAKEN. hydroxychloroquine 200 MG tablet Take 2 tablets by mouth daily. methotrexate 2.5 MG tablet Take 4 tablets by mouth every 7 days. Misc Natural Products (GLUCOSAMINE CHONDROITIN ADV PO) Take by mouth daily. Multiple Vitamin (Multi-Vitamin) tablet Take 1 tablet by mouth daily. Prince-3 Fatty Acids (Fish Oil) 1000 MG capsule Take by mouth daily. Polyethylene Glycol 3350 (MIRALAX PO) Take by mouth daily. propranolol 20 MG tablet Take 3 tablets by mouth daily. TAKE 1 TABLET BY MOUTH IN THE MORNING AND 2 TABLETS IN THE EVENING Acetaminophen 325 MG tablet Take 2 tablets by mouth every 6 hours as needed for Mild Pain. 50 tablet 0 amitriptyline 100 MG tablet Take 1 tablet by mouth at bedtime. Amitriptyline 50 MG tablet Take 1 tablet by mouth At bedtime. Amoxicillin 500 MG capsule Take 4 capsules 1 hour before procedure 8 capsule 1 apixaban 2.5 MG tablet Take 1 tablet by mouth every 12 hours. This medication is for blood clot prevention 70 tablet 0 Celecoxib 200 MG capsule Take 1 capsule by mouth daily. 42 capsule 0 Dextromethorphan-Guaifenesin 60-1200 MG Tab SR 12 HR tablet Take 1 Dose by mouth every 12 hours as needed. Docusate 100 MG capsule Take 1 capsule by mouth 2 times daily. 60 capsule 0 hydroCODone-acetaminophen 5-325 MG tablet Take 1-2 tablets by mouth every 6 hours as needed for up to 7 days. Do not take over 4000mg acetaminophen daily. 30 tablet 0 Losartan 25 MG tablet Take 12.5 mg by mouth daily. omeprazole [address] capsule Take 1 capsule by mouth daily. 30 capsule 0 No facility-administered medications prior to visit. Current Outpatient Medications: alendronate 70 MG tablet, Take 1 tablet by mouth every 7 days. alendronate 70 mg tablet TAKE 1 TABLET BY MOUTH EVERY 7 DAYS WITH A FULL GLASS OF WATER ON AN EMPTY STOMACH. REMAIN UPRIGHT AND DO NOT EAT FOR NEXT 30 MINUTES, Disp: , Rfl: amitriptyline 75 MG tablet, daily., Disp: , Rfl: calcium carbonate 1250 (500 Ca) MG tablet, Take 1 tablet by mouth 2 times daily with meals., Disp: , Rfl: PSDHDRX-YOQKVHCPD-KXOH PO, Take by mouth daily., Disp: , Rfl: Etanercept (Enbrel) 50 MG/ML Solution Prefilled Syringe injection, Inject 1 mL under the skin once a week., Disp: , Rfl: folic acid 1 MG tablet, Take 1 tablet by mouth daily. folic acid 1 mg tablet TAKE 1 TABLET BY MOUTH ONCE DAILY EXCEPT ON THE DAY METHOTREXATE IS TAKEN., Disp: , Rfl: hydroxychloroquine 200 MG tablet, Take 2 tablets by mouth daily., Disp: , Rfl: methotrexate 2.5 MG tablet, Take 4 tablets by mouth every 7 days., Disp: , Rfl: Misc Natural Products (GLUCOSAMINE CHONDROITIN ADV PO), Take by mouth daily., Disp: , Rfl: Multiple Vitamin (Multi-Vitamin) tablet, Take 1 tablet by mouth daily., Disp: , Rfl: Prince-3 Fatty Acids (Fish Oil) 1000 MG capsule, Take by mouth daily., Disp: , Rfl: Polyethylene Glycol 3350 (MIRALAX PO), Take by mouth daily., Disp: , Rfl: propranolol 20 MG tablet, Take 3 tablets by mouth daily. TAKE 1 TABLET BY MOUTH IN THE MORNING AND 2 TABLETS IN THE EVENING, Disp: , Rfl: Acetaminophen 325 MG tablet, Take 2 tablets by mouth every 6 hours as needed for Mild Pain., Disp: 50 tablet, Rfl: 0 amitriptyline 100 MG tablet, Take 1 tablet by mouth at bedtime., Disp: , Rfl: Amitriptyline 50 MG tablet, Take 1 tablet by mouth At bedtime., Disp: , Rfl: Amoxicillin 500 MG capsule, Take 4 capsules 1 hour before procedure, Disp: 8 capsule, Rfl: 1 apixaban 2.5 MG tablet, Take 1 tablet by mouth every 12 hours. This medication is for blood clot prevention, Disp: 70 tablet, Rfl: 0 Celecoxib 200 MG capsule, Take 1 capsule by mouth daily., Disp: 42 capsule, Rfl: 0 Dextromethorphan-Guaifenesin 60-1200 MG Tab SR 12 HR tablet, Take 1 Dose by mouth every 12 hours as needed., Disp: , Rfl: Docusate 100 MG capsule, Take 1 capsule by mouth 2 times daily., Disp: 60 capsule, Rfl: 0 hydroCODone-acetaminophen 5-325 MG tablet, Take 1-2 tablets by mouth every 6 hours as needed for up to 7 days. Do not take over 4000mg acetaminophen daily., Disp: 30 tablet, Rfl: 0 Losartan 25 MG tablet, Take 12.5 mg by mouth daily., Disp: , Rfl: omeprazole [address] capsule, Take 1 capsule by mouth daily., Disp: 30 capsule, Rfl: 0 Allergies: She is allergic to etodolac, diclofenac, and diphenoxylate-atropine. documented in this encounter [facility] 10-08-2022 History of Present illness Narrative Per Dr. Gildardo España gave the pt bilateral gluteus darcy injection, she was injected with 80 mg methylprednisolone (40 mg per each butt cheek). Pt tolerated well. Images from the original note were not included. RHEUMATOLOGY EST PATIENT VISIT Patients name: Heidi Mcintosh : 1955 Today's date: 10/08/2022 Reason for visit: establish care Disease summary:RA diagnosed in 1997. Status: controlled. Serology: +ve RF (57), CCP(>250) -ve DANNIE, RAFAELA Radiology: Current Meds: enbrel (2008), methotrexate 6 tablets a week (1997), HCQ 400mg/day Pain control: Prior Meds: plaquenil -> ineffective Humira x 9 months ~2007 HPC: This is a 67 y.o. female with a pmhx of DJD, RA, takusubos, h/o blood clots who presents to establish care for her RA. Dx 1997 -> joint swelling / redness 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 since dx with varying doses Chronic headaches / migraines Thinks she got MRI many years ago Had to stop working because of neck pain / migraines Did formal PT NSAIDS PO meds Topical No RFA, no iinjections, no botox Prior Rheum appts: Dr. Lemuel Sadler Dx her at [facility] Dr. Gerardo Khan at [facility] -> Dr moved to [place] Former Dr. 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 Past Medical History: Diagnosis Date Osteopenia Rheumatoid arthritis (HCC) Past Surgical History: Procedure Laterality Date apendectomy FOOT SURGERY Bilateral HIP SURGERY toncilectomy Social History Tobacco Use Smoking status: Never Smokeless tobacco: Never Vaping Use Vaping status: Never Used Substance Use Topics Alcohol use: No Drug use: No Family History Problem Relation Age of Onset Arthritis Father Heart disease Father Diabetes Father Arthritis Mother Cancer Mother Osteoporosis Neg Hx Hip fracture Neg Hx Allergies Allergen Reactions Diclofenac GI Intolerance Lomotil [Diphenoxylate-Atropine] GI Intolerance Outpatient Medications Marked as Taking for the 10/08/22 encounter (Office Visit) with Andrea Ewing MD Medication Sig Dispense Refill amitriptyline (ELAVIL) 50 MG tablet Take 1 (one) tablet (50 mg total) by mouth daily . calcium carbonate 1250 MG capsule Take 1 (one) capsule (1,250 mg total) by mouth 2 (two) times a day with meals . EnbreL 50 mg/mL (1 mL) single use prefilled syringe Inject 1 mL (50 mg total) under the skin once a week . 12 mL 3 folic acid (FOLVITE) 1 MG tablet Take 1 (one) tablet (1 mg total) by mouth daily Except methotrexate day . 90 tablet 3 GLUC HCL/CSANA/GLY-AM-GLY,MX/C (CHSCHGWY-KZHSAQHZEF-NX GLYCN-C ORAL) Take by mouth. hydrOXYchloroQUINE (PLAQUENIL) 200 mg tablet Take 2 (two) tablets (400 mg total) by mouth daily . 180 tablet 3 magnesium oxide-Mg AA chelate 133 mg Tab Take by mouth. methotrexate (TREXALL) 2.5 MG tablet Take 4 (four) tablets (10 mg total) by mouth every 7 days . 48 tablet 0 multivitamin (THERAGRAN) per tablet Take 1 (one) tablet by mouth daily . Review of Systems: General Constitutional: Denied fevers, chills, anorexia, weight loss, or night sweats Eyes: denied blurry vision, no dry eyes, no RP ENT: denied nasal drainage, sinus pressure, nasal ulcers Mouth: denied oral ulcers, dry mouth Lymphatics: no new adenopathy in cervical, supraclavicular, axillary, inguinal regions Respiratory: no cough, SOB CV: denied palpitations, chest pain/pressure, PND, orthopnea. GI: denied abd pain, n/v/d, constipation, melena. : denied dysuria, urgency, frequency or hematuria. Skin: no rashes or lesions Musculoskeletal: as per HPI Hematologic/lmmunologic: no adenopathy, bleeding, easy bruisiality or recurrent infection. Neurology: Denied new headaches, speech/balance/coordination problems. Denied new focal numbness or weakness of extremities Psych: denied anxiety, depression or mood swings A 10 point review of systems was completed. Physical Exam: BP 137/85 Pulse 71 Wt 63 kg (139 lb) BMI 27.15 kg/m Gen: NAD, resting comfortably,Alert, cooperative, no distress, appears stated age HEENT: NCAT, no temporal wasting, EOMI, perrl, anicteric sclerae, mmm, no op lesions Neck: supple, no thyromegaly or LAD, no bruits Lymphatics: no cervical, axillary, or inguinal adenopathy Chest: Good a/e b/l, no added sounds, no respiratory distress CV: RRR, no m/r/g, normal S1, S2 Abd: soft, nontender, nondistended, +BS, no hepatosplenomegaly Ext: no clubbing, cyanosis or edema MSK: No synovitis of the MCPs or PIPs. Crepitus of the knees no effusion or warmth. Skin: no rashes or lesions Neuro: no focal deficits, moves all four extremities Psych: Mood and affect appropriate DATA: I have reviewed lab work and imaging. Labs:reviewed. Imaging: reviewed. 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 Advised patient to abstain from alcohol. -Explained to patient that she needs to take folic acid supplementation every day EXCEPT day MTX is administered to reduce the incidence of other adverse effects associated with folate deficiency such as stomatitis, alopecia, diarrhea, nausea/vomiting, flu-like symptoms, shortness of breath, symptoms of myelosuppression, hepatotoxicity, infection, lymph node swelling. - 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 should be held for 2 weeks after vaccinations when possible -No plans for . Encounter for monitoring of etanercept therapy - Plan: All biologics suppress the immune system and increase the risk of infections. -People who take biologics are head likely to get infections such as upper respiratory infections, pneumonia, urinary tract infections, and skin infections. -Increased risk of opportunistic infections. -Risk of injection site reaction. -Counseled to hold biological if active infection or fever. -Advised to obtain vaccinations (PCV13 first then PPSV23 8 weeks later, yearly flu, shingrix,COVID) -Patient that have been treated with high-dose steroids, alkylating agents, 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s or biologicals that are immunosuppressive or immunomodulator should receive a 3rd dose of the [employer] or moderna mRNA Covid vaccine. intermediate frame tender HCQ therapy - Advised patient that the purpose of screening is to detect retinal toxicity, if it develops, before the vision is affected. The primary screening tests are automated visual rosas and spectral domain optical coherence tomography (SD-OCT). Early OCT changes are almost always asymptomatic and may remain so if HCQ is discontinued. -I advised the patient to undergo assessment of ocular health within a year of starting long-term antimalarial drug therapy. The baseline examination should include a fundus examination of the macula to rule out any underlying disease that may interfere with the interpretation of screening tests. -Advised patient that we prefer annual screening exams however the AAO has suggested that for patients with a normal baseline exam who do not have major risk factors for toxic retinopathy, follow-up examinations may be deferred until there have been five years of exposure. -Major risk factors for toxic retinopathy include a daily dose of HCQ greater than 5 mg/kg real body weight,antimalarial use for greater than five years, the presence of renal disease, concomitant tamoxifen use, and/or the presence of macular disease. Age-related osteoporosis without current pathological fracture -Last visit done end of October 2021, next DEXA due October 2023 - Plan: continue with Fosamax 70 mg/week The patient indicates understanding of these issues and agrees with the plan. Return to clinic in 6-12 month(s) Telehealth appointments ok. Andrea Ewing MD [employer] Note: To expedite correspondence this note was generated by [employer] voice recognition software. Some grammatical or spelling errors may occur using the system. documented in this encounter [facility] 08-21-2022 History of Present illness Narrative Images from the original note were not included. Telephone Visit Via Phone Call I discussed risks, benefits and alternatives of a telephone visit telemedicine consultation with the patient (and any accompanying persons) including the risks that the patient's personal health details and medical records will be discussed over real-time, synchronous, interactive audio technology, the visit will not be recorded without the express consent of both the provider and the patient, and that there are inherent diagnostic limitations compared to [id number] evaluations. We elected to proceed with the telephone visit telemedicine consultation. I have spent 30 minutes with the patient reviewing the HPI, reviewing and updating the medical records & coordination of care. The patient indicates understanding of these issues and agrees with the plan. RHEUMATOLOGY EST PATIENT VISIT Patients name: Heidi Mcintosh : 1955 Today's date: 08/21/2022 Reason for visit: establish care Disease summary:RA diagnosed in 1997. Status: controlled. Serology: +ve RF (57), CCP(>250) -ve DANNIE, RAFAELA Radiology: Current Meds: enbrel (2008), methotrexate 6 tablets a week (1997), HCQ 400mg/day Pain control: Prior Meds: plaquenil -> ineffective Humira x 9 months ~2007 HPC: This is a 67 y.o. female with a pmhx of DJD, RA, takusubos, h/o blood clots who presents to establish care for her RA. Dx 1997 -> joint swelling / redness 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 since dx with varying doses Chronic headaches / migraines Thinks she got MRI many years ago Had to stop working because of neck pain / migraines Did formal PT NSAIDS PO meds Topical No RFA, no iinjections, no botox Prior Rheum appts: Dr. Lemuel Sadler Dx her at [facility] Dr. Gerardo Khan at [facility] -> moved to [place] Former Dr. 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 Past Medical History: Diagnosis Date Osteopenia Rheumatoid arthritis (HCC) Past Surgical History: Procedure Laterality Date apendectomy FOOT SURGERY Bilateral toncilectomy Social History Tobacco Use Smoking status: Never Smokeless tobacco: Never Vaping Use Vaping Use: Never used Substance Use Topics Alcohol use: No Drug use: No Family History Problem Relation Age of Onset Arthritis Father Heart disease Father Diabetes Father Arthritis Mother Cancer Mother Osteoporosis Neg Hx Hip fracture Neg Hx Allergies Allergen Reactions Diclofenac GI Intolerance Lomotil [Diphenoxylate-Atropine] GI Intolerance No outpatient medications have been marked as taking for the 08/21/22 encounter (Appointment) with Andrea Ewing MD. Review of Systems: General Constitutional: Denied fevers, chills, anorexia, weight loss, or night sweats Eyes: denied blurry vision, no dry eyes, no RP ENT: denied nasal drainage, sinus pressure, nasal ulcers Mouth: denied oral ulcers, dry mouth Lymphatics: no new adenopathy in cervical, supraclavicular, axillary, inguinal regions Respiratory: no cough, SOB CV: denied palpitations, chest pain/pressure, PND, orthopnea. GI: denied abd pain, n/v/d, constipation, melena. : denied dysuria, urgency, frequency or hematuria. Skin: no rashes or lesions Musculoskeletal: as per HPI Hematologic/lmmunologic: no adenopathy, bleeding, easy bruisiality or recurrent infection. Neurology: Denied new headaches, speech/balance/coordination problems. Denied new focal numbness or weakness of extremities Psych: denied anxiety, depression or mood swings A 10 point review of systems was completed. Physical Exam: There were no vitals taken for this visit. DATA: I have reviewed lab work and imaging. Labs:reviewed. Imaging: reviewed. Health Maintenance Due Topic Date Due Wellness Visit Never done Depression Screening (PHQ-2/9) Never done Colorectal Cancer Screening/Monitoring 03/08/2017 Falls Risk Assessment Never done COVID-19 Vaccine (3 - Pfizer risk series) 08/05/2021 Assessment & Plan Rheumatoid arthritis +RF/CCP - active, not on therapy - recent surgery and Ortho held meds for >7 weeks which is not per guidelines and now unfortunately patient appears to be flaring. Increased risk enbrel may not be as effective when re-started due to prolonged pause in treatment. - Plan: recommend re-starting methotrexate which is 6 pills a week and weekly enbrel & HCQ 400mg/day - if flare not controlled within 1-2 months patient will reach out. 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 Advised patient to abstain from alcohol. -Explained to patient that she needs to take folic acid supplementation every day EXCEPT day MTX is administered to reduce the incidence of other adverse effects associated with folate deficiency such as stomatitis, alopecia, diarrhea, nausea/vomiting, flu-like symptoms, shortness of breath, symptoms of myelosuppression, hepatotoxicity, infection, lymph node swelling. - 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 should be held for 2 weeks after vaccinations when possible -No plans for . Encounter for monitoring of etanercept therapy - Plan: All biologics suppress the immune system and increase the risk of infections. -People who take biologics are head likely to get infections such as upper respiratory infections, pneumonia, urinary tract infections, and skin infections. -Increased risk of opportunistic infections. -Risk of injection site reaction. -Counseled to hold biological if active infection or fever. -Advised to obtain vaccinations (PCV13 first then PPSV23 8 weeks later, yearly flu, shingrix,COVID) -Patient that have been treated with high-dose steroids, alkylating agents, 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s or biologicals that are immunosuppressive or immunomodulator should receive a 3rd dose of the [employer] or moderna [employer] Covid vaccine. intermediate frame tender HCQ therapy - Advised patient that the purpose of screening is to detect retinal toxicity, if it develops, before the vision is affected. The primary screening tests are automated visual rosas and spectral domain optical coherence tomography (SD-OCT). Early OCT changes are almost always asymptomatic and may remain so if HCQ is discontinued. -I advised the patient to undergo assessment of ocular health within a year of starting long-term antimalarial drug therapy. The baseline examination should include a fundus examination of the macula to rule out any underlying disease that may interfere with the interpretation of screening tests. -Advised patient that we prefer annual screening exams however the AAO has suggested that for patients with a normal baseline exam who do not have major risk factors for toxic retinopathy, follow-up examinations may be deferred until there have been five years of exposure. -Major risk factors for toxic retinopathy include a daily dose of HCQ greater than 5 mg/kg real body weight,antimalarial use for greater than five years, the presence of renal disease, concomitant tamoxifen use, and/or the presence of macular disease. Age-related osteoporosis without current pathological fracture -Last visit done end of October 2021, next DEXA due October 2023 - Plan: continue with Fosamax 70 mg/week The patient indicates understanding of these issues and agrees with the plan. Return to clinic in 6 month(s) Telehealth appointments ok. Andrea Ewing MD [employer] Note: To expedite correspondence this note was generated by [employer] voice recognition software. Some grammatical or spelling errors may occur using the system. documented in this encounter [facility] 07-31-2022 History of Present illness Narrative Ortho Nurse - Established Patient Intake Room#: 4 Date: 07/31/2022 9:38 AM Patient: Heidi Mcintosh MR#: [id number] : 1955 Age: 67 y.o. R STEPHANIE (06/18/2022) Pt stated she is doing pretty good still has pain with it 3/10 on the pain scale. Pt stated she has been moving around a lot in the last week. Pt was in a wheelchair at the time of visit. Referring Physician: Self, Self Insurance: Payor: MEDICARE / Plan: MEDICARE A AND B / Product Type: *No Product type* / Chief Complaint Patient presents with Right Hip - Follow-up Visit Vitals Temp 96.6 F (35.9 C) (Temporal) Ht 1.524 m (5') Wt 62.1 kg (137 lb) BMI 26.76 kg/m Pain Recent Labs No results found for: CRP No results found for: SEDRATE Lab Results Component Value Date WBC 7.5 06/19/2022 HGB 9.9 (L) 06/19/2022 HCT 29.9 (L) 06/19/2022 PLATELET 112 (L) 06/19/2022 MCV 95.9 06/19/2022 History Past Medical History: Diagnosis Date Arthritis Chronic rheumatic arthritis Essential hypertension, benign MD (myocardial infarction) stress MD, 05/2021 Migraine Pulmonary embolism Past Surgical History: Procedure Laterality Date ARTHROPLASTY HIP TOTAL Right 06/18/2022 Laterality: Right; Surgeon: Bradford Hussein MD; Location: [facility] OR APPENDECTOMY age 10 BUNIONECTOMY Bilateral TONSILLECTOMY Family History: Her family history is not on file. Social History: Her reports that she has quit smoking. Her smoking use included cigarettes. She has been exposed to tobacco smoke. She has never used smokeless tobacco. She reports that she does not drink alcohol and does not use drugs. Outpatient Medications Prior to Visit Medication Sig Dispense Refill Acetaminophen 325 MG tablet Take 2 tablets by mouth every 6 hours as needed for Mild Pain. 50 tablet 0 alendronate 70 MG tablet Take 1 tablet by mouth every 7 days. alendronate 70 mg tablet TAKE 1 TABLET BY MOUTH EVERY 7 DAYS WITH A FULL GLASS OF WATER ON AN EMPTY STOMACH. REMAIN UPRIGHT AND DO NOT EAT FOR NEXT 30 MINUTES Amitriptyline 50 MG tablet Take 1 tablet by mouth At bedtime. calcium carbonate 1250 (500 Ca) MG tablet Take 1 tablet by mouth 2 times daily with meals. [id number]-DHAT PO Take by mouth daily. Celecoxib 200 MG capsule Take 1 capsule by mouth daily. 42 capsule 0 Dextromethorphan-Guaifenesin 60-1200 MG Tab SR 12 HR tablet Take 1 Dose by mouth every 12 hours as needed. Etanercept (Enbrel) 50 MG/ML Solution Prefilled Syringe injection Inject 1 mL under the skin once a week. folic acid 1 MG tablet Take 1 tablet by mouth daily. folic acid 1 mg tablet TAKE 1 TABLET BY MOUTH ONCE DAILY EXCEPT ON THE DAY METHOTREXATE IS TAKEN. hydroxychloroquine 200 MG tablet Take 2 tablets by mouth daily. Losartan 25 MG tablet Take 12.5 mg by mouth daily. methotrexate 2.5 MG tablet Take 4 tablets by mouth every 7 days. Misc Natural Products (GLUCOSAMINE CHONDROITIN ADV PO) Take by mouth daily. Multiple Vitamin (Multi-Vitamin) tablet Take 1 tablet by mouth daily. Prince-3 Fatty Acids (Fish Oil) 1000 MG capsule Take by mouth daily. Polyethylene Glycol 3350 (MIRALAX PO) Take by mouth daily. propranolol 20 MG tablet Take 3 tablets by mouth daily. TAKE 1 TABLET BY MOUTH IN THE MORNING AND 2 TABLETS IN THE EVENING amitriptyline 100 MG tablet Take 1 tablet by mouth at bedtime. amitriptyline 75 MG tablet daily. apixaban 2.5 MG tablet Take 1 tablet by mouth every 12 hours. This medication is for blood clot prevention 70 tablet 0 Docusate 100 MG capsule Take 1 capsule by mouth 2 times daily. 60 capsule 0 hydroCODone-acetaminophen 5-325 MG tablet Take 1-2 tablets by mouth every 6 hours as needed for up to 7 days. Do not take over 4000mg acetaminophen daily. 30 tablet 0 omeprazole [address] capsule Take 1 capsule by mouth daily. 30 capsule 0 No facility-administered medications prior to visit. Current Outpatient Medications: Acetaminophen 325 MG tablet, Take 2 tablets by mouth every 6 hours as needed for Mild Pain., Disp: 50 tablet, Rfl: 0 alendronate 70 MG tablet, Take 1 tablet by mouth every 7 days. alendronate 70 mg tablet TAKE 1 TABLET BY MOUTH EVERY 7 DAYS WITH A FULL GLASS OF WATER ON AN EMPTY STOMACH. REMAIN UPRIGHT AND DO NOT EAT FOR NEXT 30 MINUTES, Disp: , Rfl: Amitriptyline 50 MG tablet, Take 1 tablet by mouth At bedtime., Disp: , Rfl: calcium carbonate 1250 (500 Ca) MG tablet, Take 1 tablet by mouth 2 times daily with meals., Disp: , Rfl: [id number] PO, Take by mouth daily., Disp: , Rfl: Celecoxib 200 MG capsule, Take 1 capsule by mouth daily., Disp: 42 capsule, Rfl: 0 Dextromethorphan-Guaifenesin 60-1200 MG Tab SR 12 HR tablet, Take 1 Dose by mouth every 12 hours as needed., Disp: , Rfl: Etanercept (Enbrel) 50 MG/ML Solution Prefilled Syringe injection, Inject 1 mL under the skin once a week., Disp: , Rfl: folic acid 1 MG tablet, Take 1 tablet by mouth daily. folic acid 1 mg tablet TAKE 1 TABLET BY MOUTH ONCE DAILY EXCEPT ON THE DAY METHOTREXATE IS TAKEN., Disp: , Rfl: hydroxychloroquine 200 MG tablet, Take 2 tablets by mouth daily., Disp: , Rfl: Losartan 25 MG tablet, Take 12.5 mg by mouth daily., Disp: , Rfl: methotrexate 2.5 MG tablet, Take 4 tablets by mouth every 7 days., Disp: , Rfl: Misc Natural Products (GLUCOSAMINE CHONDROITIN ADV PO), Take by mouth daily., Disp: , Rfl: Multiple Vitamin (Multi-Vitamin) tablet, Take 1 tablet by mouth daily., Disp: , Rfl: Prince-3 Fatty Acids (Fish Oil) 1000 MG capsule, Take by mouth daily., Disp: , Rfl: Polyethylene Glycol 3350 (MIRALAX PO), Take by mouth daily., Disp: , Rfl: propranolol 20 MG tablet, Take 3 tablets by mouth daily. TAKE 1 TABLET BY MOUTH IN THE MORNING AND 2 TABLETS IN THE EVENING, Disp: , Rfl: amitriptyline 100 MG tablet, Take 1 tablet by mouth at bedtime., Disp: , Rfl: amitriptyline 75 MG tablet, daily., Disp: , Rfl: apixaban 2.5 MG tablet, Take 1 tablet by mouth every 12 hours. This medication is for blood clot prevention, Disp: 70 tablet, Rfl: 0 Docusate 100 MG capsule, Take 1 capsule by mouth 2 times daily., Disp: 60 capsule, Rfl: 0 hydroCODone-acetaminophen 5-325 MG tablet, Take 1-2 tablets by mouth every 6 hours as needed for up to 7 days. Do not take over 4000mg acetaminophen daily., Disp: 30 tablet, Rfl: 0 omepraz[address] capsule, Take 1 capsule by mouth daily., Disp: 30 capsule, Rfl: 0 Allergies: She is allergic to etodolac, diclofenac, and diphenoxylate-atropine. SUBJECTIVE: Heidi is an established patient of [facility]. She is here today for followup. She is now 6 weeks out right total hip arthroplasty. She reports overall she is doing well. No fevers or chills. No changes constitutionally. She does report she did have a fall, but no problems with pain in hip. She has also had resolution of the redness and discoloration to her buttocks. PHYSICAL EXAMINATION: GENERAL: She is alert and oriented age-appropriate female, in no acute distress. Pleasant and cooperative. EXTREMITIES: Right lower extremity with thigh and calf soft and nontender. Normal neurovascular status. Negative Homans sign. Full and supple range of motion of hip without pain or impingement. Left lower extremity with thigh and calf soft and nontender. Normal neurovascular status. Negative Homans sign. She has a well-healed anterolateral hip incision without any redness, drainage, dehiscence, discharge, signs or symptoms of infection to the surrounding area. SKIN: Intact with no discolorations noted. DIAGNOSTIC STUDY INTERPRETATION: AP pelvis right hip series taken today demonstrate stable position and alignment of the cementless total hip arthroplasty. It is in unchanged position and alignment when compared to previous imaging. No evidence of periprosthetic implant loosening or migration. No evidence of fracture. ASSESSMENT: Six weeks status post right total hip, doing well. PLAN: I reviewed my findings with Reena as well as her today. Overall pleased with the outcomes of the operation. I expect continued improvements in strength and mobility moving forward. We talked about how to progress in a slow, steady, and safe manner. All of her questions and concerns were addressed today to her satisfaction. We will follow up with her at her routinely scheduled 4-month appointment or sooner as necessary. Call with any questions or concerns in the meantime. (DOC:[id number]) I have reviewed the findings of the clinical sales and support center agent and agree with their assessment. Ghanshyam Dye APRN-[employer]AG[employer] LABORER Ortho Nurse - Established Patient Intake Room#: 4 Date: 07/31/2022 9:38 AM Patient: Heidi Mcintosh MR#: [id number] : 1955 Age: 67 y.o. R STEPHANIE (06/18/2022) Pt stated she is doing pretty good still has pain with it 3/10 on the pain scale. Pt stated she has been moving around a lot in the last week. Pt was in a wheelchair at the time of visit. Referring Physician: Self, Self Insurance: Payor: MEDICARE / Plan: MEDICARE A AND B / Product Type: *No Product type* / Chief Complaint Patient presents with Right Hip - Follow-up Visit Vitals Temp 96.6 F (35.9 C) (Temporal) Ht 1.524 m (5') Wt 62.1 kg (137 lb) BMI 26.76 kg/m Pain Recent Labs No results found for: CRP No results found for: SEDRATE Lab Results Component Value Date WBC 7.5 06/19/2022 HGB 9.9 (L) 06/19/2022 HCT 29.9 (L) 06/19/2022 PLATELET 112 (L) 06/19/2022 MCV 95.9 06/19/2022 History Past Medical History: Diagnosis Date Arthritis Chronic rheumatic arthritis Essential hypertension, benign MD (myocardial infarction) stress MD, 05/2021 Migraine Pulmonary embolism Past Surgical History: Procedure Laterality Date ARTHROPLASTY HIP TOTAL Right 06/18/2022 Laterality: Right; Surgeon: Bradford Hussein MD; Location: [facility] OR APPENDECTOMY age 10 BUNIONECTOMY Bilateral TONSILLECTOMY Family History: Her family history is not on file. Social History: Her reports that she has quit smoking. Her smoking use included cigarettes. She has been exposed to tobacco smoke. She has never used smokeless tobacco. She reports that she does not drink alcohol and does not use drugs. Outpatient Medications Prior to Visit Medication Sig Dispense Refill Acetaminophen 325 MG tablet Take 2 tablets by mouth every 6 hours as needed for Mild Pain. 50 tablet 0 alendronate 70 MG tablet Take 1 tablet by mouth every 7 days. alendronate 70 mg tablet TAKE 1 TABLET BY MOUTH EVERY 7 DAYS WITH A FULL GLASS OF WATER ON AN EMPTY STOMACH. REMAIN UPRIGHT AND DO NOT EAT FOR NEXT 30 MINUTES Amitriptyline 50 MG tablet Take 1 tablet by mouth At bedtime. calcium carbonate 1250 (500 Ca) MG tablet Take 1 tablet by mouth 2 times daily with meals. [id number]-BACH PO Take by mouth daily. Celecoxib 200 MG capsule Take 1 capsule by mouth daily. 42 capsule 0 Dextromethorphan-Guaifenesin 60-1200 MG Tab SR 12 HR tablet Take 1 Dose by mouth every 12 hours as needed. Etanercept (Enbrel) 50 MG/ML Solution Prefilled Syringe injection Inject 1 mL under the skin once a week. folic acid 1 MG tablet Take 1 tablet by mouth daily. folic acid 1 mg tablet TAKE 1 TABLET BY MOUTH ONCE DAILY EXCEPT ON THE DAY METHOTREXATE IS TAKEN. hydroxychloroquine 200 MG tablet Take 2 tablets by mouth daily. Losartan 25 MG tablet Take 12.5 mg by mouth daily. methotrexate 2.5 MG tablet Take 4 tablets by mouth every 7 days. Misc Natural Products (GLUCOSAMINE CHONDROITIN ADV PO) Take by mouth daily. Multiple Vitamin (Multi-Vitamin) tablet Take 1 tablet by mouth daily. Prince-3 Fatty Acids (Fish Oil) 1000 MG capsule Take by mouth daily. Polyethylene Glycol 3350 (MIRALAX PO) Take by mouth daily. propranolol 20 MG tablet Take 3 tablets by mouth daily. TAKE 1 TABLET BY MOUTH IN THE MORNING AND 2 TABLETS IN THE EVENING amitriptyline 100 MG tablet Take 1 tablet by mouth at bedtime. amitriptyline 75 MG tablet daily. apixaban 2.5 MG tablet Take 1 tablet by mouth every 12 hours. This medication is for blood clot prevention 70 tablet 0 Docusate 100 MG capsule Take 1 capsule by mouth 2 times daily. 60 capsule 0 hydroCODone-acetaminophen 5-325 MG tablet Take 1-2 tablets by mouth every 6 hours as needed for up to 7 days. Do not take over 4000mg acetaminophen daily. 30 tablet 0 omeprazole [address] capsule Take 1 capsule by mouth daily. 30 capsule 0 No facility-administered medications prior to visit. Current Outpatient Medications: Acetaminophen 325 MG tablet, Take 2 tablets by mouth every 6 hours as needed for Mild Pain., Disp: 50 tablet, Rfl: 0 alendronate 70 MG tablet, Take 1 tablet by mouth every 7 days. alendronate 70 mg tablet TAKE 1 TABLET BY MOUTH EVERY 7 DAYS WITH A FULL GLASS OF WATER ON AN EMPTY STOMACH. REMAIN UPRIGHT AND DO NOT EAT FOR NEXT 30 MINUTES, Disp: , Rfl: Amitriptyline 50 MG tablet, Take 1 tablet by mouth At bedtime., Disp: , Rfl: calcium carbonate 1250 (500 Ca) MG tablet, Take 1 tablet by mouth 2 times daily with meals., Disp: , Rfl: [id number] PO, Take by mouth daily., Disp: , Rfl: Celecoxib 200 MG capsule, Take 1 capsule by mouth daily., Disp: 42 capsule, Rfl: 0 Dextromethorphan-Guaifenesin 60-1200 MG Tab SR 12 HR tablet, Take 1 Dose by mouth every 12 hours as needed., Disp: , Rfl: Etanercept (Enbrel) 50 MG/ML Solution Prefilled Syringe injection, Inject 1 mL under the skin once a week., Disp: , Rfl: folic acid 1 MG tablet, Take 1 tablet by mouth daily. folic acid 1 mg tablet TAKE 1 TABLET BY MOUTH ONCE DAILY EXCEPT ON THE DAY METHOTREXATE IS TAKEN., Disp: , Rfl: hydroxychloroquine 200 MG tablet, Take 2 tablets by mouth daily., Disp: , Rfl: Losartan 25 MG tablet, Take 12.5 mg by mouth daily., Disp: , Rfl: methotrexate 2.5 MG tablet, Take 4 tablets by mouth every 7 days., Disp: , Rfl: Misc Natural Products (GLUCOSAMINE CHONDROITIN ADV PO), Take by mouth daily., Disp: , Rfl: Multiple Vitamin (Multi-Vitamin) tablet, Take 1 tablet by mouth daily., Disp: , Rfl: Prince-3 Fatty Acids (Fish Oil) 1000 MG capsule, Take by mouth daily., Disp: , Rfl: Polyethylene Glycol 3350 (MIRALAX PO), Take by mouth daily., Disp: , Rfl: propranolol 20 MG tablet, Take 3 tablets by mouth daily. TAKE 1 TABLET BY MOUTH IN THE MORNING AND 2 TABLETS IN THE EVENING, Disp: , Rfl: amitriptyline 100 MG tablet, Take 1 tablet by mouth at bedtime., Disp: , Rfl: amitriptyline 75 MG tablet, daily., Disp: , Rfl: apixaban 2.5 MG tablet, Take 1 tablet by mouth every 12 hours. This medication is for blood clot prevention, Disp: 70 tablet, Rfl: 0 Docusate 100 MG capsule, Take 1 capsule by mouth 2 times daily., Disp: 60 capsule, Rfl: 0 hydroCODone-acetaminophen 5-325 MG tablet, Take 1-2 tablets by mouth every 6 hours as needed for up to 7 days. Do not take over 4000mg acetaminophen daily., Disp: 30 tablet, Rfl: 0 omeprazole [address] capsule, Take 1 capsule by mouth daily., Disp: 30 capsule, Rfl: 0 Allergies: She is allergic to etodolac, diclofenac, and diphenoxylate-atropine. documented in this encounter [facility] 07-19-2022 Telephone encounter Note Pt had labs done 07-19 [facility] 07-19-2022 Miscellaneous Notes Pt had labs done 07-19 documented in this encounter [facility] 07-10-2022 History of Present illness Narrative Ortho Nurse - Established Patient Intake Room#: 4 Date: 07/10/2022 11:34 AM 3 wks s/p A/L R STEPHANIE. Touchdown weightbearing for 3 weeks, then partial weightbearing for 3 weeks, anterolateral hip precautions, no active abduction for 6 weeks she is using a walker for assistive device. She states she has been doing well and is taking norco usually once daily. Her pain today is 3-4/10. Patient: Heidi Mcintosh MR#: [id number] : 1955 Age: 67 y.o. Referring Physician: Ghanshyam Dye APRN-CNP Insurance: Payor: MEDICARE / Plan: MEDICARE A AND B / Product Type: *No Product type* / Chief Complaint Patient presents with Right Hip - Post Op Visit Visit Vitals Temp 98.1 F (36.7 C) (Temporal) Ht 1.524 m (5') Wt 62.1 kg (137 lb) BMI 26.76 kg/m Pain Recent Labs No results found for: CRP No results found for: SEDRATE Lab Results Component Value Date WBC 7.5 06/19/2022 HGB 9.9 (L) 06/19/2022 HCT 29.9 (L) 06/19/2022 PLATELET 112 (L) 06/19/2022 MCV 95.9 06/19/2022 History Past Medical History: Diagnosis Date Arthritis Chronic rheumatic arthritis Essential hypertension, benign MD (myocardial infarction) stress MD, 05/2021 Migraine Pulmonary embolism Past Surgical History: Procedure Laterality Date ARTHROPLASTY HIP TOTAL Right 06/18/2022 Laterality: Right; Surgeon: Bradford Hussein MD; Location: [facility] OR APPENDECTOMY age 10 BUNIONECTOMY Bilateral TONSILLECTOMY Family History: Her family history is not on file. Social History: Her reports that she has quit smoking. Her smoking use included cigarettes. She has been exposed to tobacco smoke. She has never used smokeless tobacco. She reports that she does not drink alcohol and does not use drugs. Outpatient Medications Prior to Visit Medication Sig Dispense Refill Acetaminophen 325 MG tablet Take 2 tablets by mouth every 6 hours as needed for Mild Pain. 50 tablet 0 alendronate 70 MG tablet Take 1 tablet by mouth every 7 days. alendronate 70 mg tablet TAKE 1 TABLET BY MOUTH EVERY 7 DAYS WITH A FULL GLASS OF WATER ON AN EMPTY STOMACH. REMAIN UPRIGHT AND DO NOT EAT FOR NEXT 30 MINUTES Amitriptyline 50 MG tablet Take 1 tablet by mouth At bedtime. apixaban 2.5 MG tablet Take 1 tablet by mouth every 12 hours. This medication is for blood clot prevention 70 tablet 0 calcium carbonate 1250 (500 Ca) MG tablet Take 1 tablet by mouth 2 times daily with meals. [id number] PO Take by mouth daily. Celecoxib 200 MG capsule Take 1 capsule by mouth daily. 42 capsule 0 Dextromethorphan-Guaifenesin 60-1200 MG Tab SR 12 HR tablet Take 1 Dose by mouth every 12 hours as needed. Docusate 100 MG capsule Take 1 capsule by mouth 2 times daily. 60 capsule 0 Etanercept (Enbrel) 50 MG/ML Solution Prefilled Syringe injection Inject 1 mL under the skin once a week. folic acid 1 MG tablet Take 1 tablet by mouth daily. folic acid 1 mg tablet TAKE 1 TABLET BY MOUTH ONCE DAILY EXCEPT ON THE DAY METHOTREXATE IS TAKEN. hydroxychloroquine 200 MG tablet Take 2 tablets by mouth daily. Losartan 25 MG tablet Take 12.5 mg by mouth daily. methotrexate 2.5 MG tablet Take 4 tablets by mouth every 7 days. Misc Natural Products (GLUCOSAMINE CHONDROITIN ADV PO) Take by mouth daily. Multiple Vitamin (Multi-Vitamin) tablet Take 1 tablet by mouth daily. Prince-3 Fatty Acids (Fish Oil) 1000 MG capsule Take by mouth daily. omeprazole [address] capsule Take 1 capsule by mouth daily. 30 capsule 0 Polyethylene Glycol 3350 (MIRALAX PO) Take by mouth daily. propranolol 20 MG tablet Take 3 tablets by mouth daily. TAKE 1 TABLET BY MOUTH IN THE MORNING AND 2 TABLETS IN THE EVENING amitriptyline 100 MG tablet Take 1 tablet by mouth at bedtime. amitriptyline 75 MG tablet daily. hydroCODone-acetaminophen 5-325 MG tablet Take 1-2 tablets by mouth every 6 hours as needed for up to 7 days. Do not take over 4000mg acetaminophen daily. 30 tablet 0 No facility-administered medications prior to visit. Current Outpatient Medications: Acetaminophen 325 MG tablet, Take 2 tablets by mouth every 6 hours as needed for Mild Pain., Disp: 50 tablet, Rfl: 0 alendronate 70 MG tablet, Take 1 tablet by mouth every 7 days. alendronate 70 mg tablet TAKE 1 TABLET BY MOUTH EVERY 7 DAYS WITH A FULL GLASS OF WATER ON AN EMPTY STOMACH. REMAIN UPRIGHT AND DO NOT EAT FOR NEXT 30 MINUTES, Disp: , Rfl: Amitriptyline 50 MG tablet, Take 1 tablet by mouth At bedtime., Disp: , Rfl: apixaban 2.5 MG tablet, Take 1 tablet by mouth every 12 hours. This medication is for blood clot prevention, Disp: 70 tablet, Rfl: 0 calcium carbonate 1250 (500 Ca) MG tablet, Take 1 tablet by mouth 2 times daily with meals., Disp: , Rfl: [id number] PO, Take by mouth daily., Disp: , Rfl: Celecoxib 200 MG capsule, Take 1 capsule by mouth daily., Disp: 42 capsule, Rfl: 0 Dextromethorphan-Guaifenesin 60-1200 MG Tab SR 12 HR tablet, Take 1 Dose by mouth every 12 hours as needed., Disp: , Rfl: Docusate 100 MG capsule, Take 1 capsule by mouth 2 times daily., Disp: 60 capsule, Rfl: 0 Etanercept (Enbrel) 50 MG/ML Solution Prefilled Syringe injection, Inject 1 mL under the skin once a week., Disp: , Rfl: folic acid 1 MG tablet, Take 1 tablet by mouth daily. folic acid 1 mg tablet TAKE 1 TABLET BY MOUTH ONCE DAILY EXCEPT ON THE DAY METHOTREXATE IS TAKEN., Disp: , Rfl: hydroxychloroquine 200 MG tablet, Take 2 tablets by mouth daily., Disp: , Rfl: Losartan 25 MG tablet, Take 12.5 mg by mouth daily., Disp: , Rfl: methotrexate 2.5 MG tablet, Take 4 tablets by mouth every 7 days., Disp: , Rfl: Misc Natural Products (GLUCOSAMINE CHONDROITIN ADV PO), Take by mouth daily., Disp: , Rfl: Multiple Vitamin (Multi-Vitamin) tablet, Take 1 tablet by mouth daily., Disp: , Rfl: Prince-3 Fatty Acids (Fish Oil) 1000 MG capsule, Take by mouth daily., Disp: , Rfl: omeprazole [address] capsule, Take 1 capsule by mouth daily., Disp: 30 capsule, Rfl: 0 Polyethylene Glycol 3350 (MIRALAX PO), Take by mouth daily., Disp: , Rfl: propranolol 20 MG tablet, Take 3 tablets by mouth daily. TAKE 1 TABLET BY MOUTH IN THE MORNING AND 2 TABLETS IN THE EVENING, Disp: , Rfl: amitriptyline 100 MG tablet, Take 1 tablet by mouth at bedtime., Disp: , Rfl: amitriptyline 75 MG tablet, daily., Disp: , Rfl: hydroCODone-acetaminophen 5-325 MG tablet, Take 1-2 tablets by mouth every 6 hours as needed for up to 7 days. Do not take over 4000mg acetaminophen daily., Disp: 30 tablet, Rfl: 0 Allergies: She is allergic to etodolac, diclofenac, and diphenoxylate-atropine. MRS Heidi Mcintosh is 3 weeks s/p right Anterolateral total hip arthroplasty. She is progressing nicely in her recovery. She is TDWB with AL restrictions. She reports 0 out of 10 pain. She is using tylenol for pain control and eliquis for DVT prophylaxis along with DEANNE hose. Physical Exam: Today on exam incision is healing nicely with global hip swelling, no erythema, drainage or evidence of dehiscence. Calves are soft and nontender with negative Homans sign. ROM is full and supple with no pain or impingement. Distal neurovascular exam is intact. On the supierior aspect of the buttocks there is an area of blanchable redness with small scattered purple discolorations noted. The area is slightly warm to touch but blanchable Visit Vitals Temp 98.1 F (36.7 C) (Temporal) Ht 1.524 m (5') Wt 62.1 kg (137 lb) BMI 26.76 kg/m Diagnostic study/interpretation: Plain films were obtained today and reveal a cementless total hip arthroplasty in good position and alignment without evidence of implant loosening or migration as compared to the immediate postop film. Assessment/Plan: 3 week postop STEPHANIE via anterolateral approach. Questionable cellulitis r buttock. Will rx kelfex prophylactic. Avoid sitting on ice. Continue with DVT prophylaxis as prescribed. Dental prophylaxis was given. Follow up 6 weeks postop unless an earlier need arises. All questions and concerrns were addressed at this visit. All pertinant portions of the clinical sales and support center agent documentation was reviewed. IZZY Calhoun I have reviewed the findings of the clinical sales and support center agent and agree with their assessment. IZZY Calhoun Ortho Nurse - Established Patient Intake Room#: 4 Date: 07/10/2022 11:34 AM 3 wks s/p A/L R STEPHANIE. Touchdown weightbearing for 3 weeks, then partial weightbearing for 3 weeks, anterolateral hip precautions, no active abduction for 6 weeks she is using a walker for assistive device. She states she has been doing well and is taking norco usually once daily. Her pain today is 3-4/10. Patient: Heidi Mcintosh MR#: [id number] : 1955 Age: 67 y.o. Referring Physician: Ghanshyam Dye APRN-CNP Insurance: Payor: MEDICARE / Plan: MEDICARE A AND B / Product Type: *No Product type* / Chief Complaint Patient presents with Right Hip - Post Op Visit Visit Vitals Temp 98.1 F (36.7 C) (Temporal) Ht 1.524 m (5') Wt 62.1 kg (137 lb) BMI 26.76 kg/m Pain Recent Labs No results found for: CRP No results found for: SEDRATE Lab Results Component Value Date WBC 7.5 06/19/2022 HGB 9.9 (L) 06/19/2022 HCT 29.9 (L) 06/19/2022 PLATELET 112 (L) 06/19/2022 MCV 95.9 06/19/2022 History Past Medical History: Diagnosis Date Arthritis Chronic rheumatic arthritis Essential hypertension, benign MD (myocardial infarction) stress MD, 05/2021 Migraine Pulmonary embolism Past Surgical History: Procedure Laterality Date ARTHROPLASTY HIP TOTAL Right 06/18/2022 Laterality: Right; Surgeon: Bradford Hussein MD; Location: [facility] APPENDECTOMY age 10 BUNIONECTOMY Bilateral TONSILLECTOMY Family History: Her family history is not on file. Social History: Her reports that she has quit smoking. Her smoking use included cigarettes. She has been exposed to tobacco smoke. She has never used smokeless tobacco. She reports that she does not drink alcohol and does not use drugs. Outpatient Medications Prior to Visit Medication Sig Dispense Refill Acetaminophen 325 MG tablet Take 2 tablets by mouth every 6 hours as needed for Mild Pain. 50 tablet 0 alendronate 70 MG tablet Take 1 tablet by mouth every 7 days. alendronate 70 mg tablet TAKE 1 TABLET BY MOUTH EVERY 7 DAYS WITH A FULL GLASS OF WATER ON AN EMPTY STOMACH. REMAIN UPRIGHT AND DO NOT EAT FOR NEXT 30 MINUTES Amitriptyline 50 MG tablet Take 1 tablet by mouth At bedtime. apixaban 2.5 MG tablet Take 1 tablet by mouth every 12 hours. This medication is for blood clot prevention 70 tablet 0 calcium carbonate 1250 (500 Ca) MG tablet Take 1 tablet by mouth 2 times daily with meals. YPENJOW-OFQGBOXIT-XCSL PO Take by mouth daily. Celecoxib 200 MG capsule Take 1 capsule by mouth daily. 42 capsule 0 Dextromethorphan-Guaifenesin 60-1200 MG Tab SR 12 HR tablet Take 1 Dose by mouth every 12 hours as needed. Docusate 100 MG capsule Take 1 capsule by mouth 2 times daily. 60 capsule 0 Etanercept (Enbrel) 50 MG/ML Solution Prefilled Syringe injection Inject 1 mL under the skin once a week. folic acid 1 MG tablet Take 1 tablet by mouth daily. folic acid 1 mg tablet TAKE 1 TABLET BY MOUTH ONCE DAILY EXCEPT ON THE DAY METHOTREXATE IS TAKEN. hydroxychloroquine 200 MG tablet Take 2 tablets by mouth daily. Losartan 25 MG tablet Take 12.5 mg by mouth daily. methotrexate 2.5 MG tablet Take 4 tablets by mouth every 7 days. Misc Natural Products (GLUCOSAMINE CHONDROITIN ADV PO) Take by mouth daily. Multiple Vitamin (Multi-Vitamin) tablet Take 1 tablet by mouth daily. Prince-3 Fatty Acids (Fish Oil) 1000 MG capsule Take by mouth daily. omeprazole [address] capsule Take 1 capsule by mouth daily. 30 capsule 0 Polyethylene Glycol 3350 (MIRALAX PO) Take by mouth daily. propranolol 20 MG tablet Take 3 tablets by mouth daily. TAKE 1 TABLET BY MOUTH IN THE MORNING AND 2 TABLETS IN THE EVENING amitriptyline 100 MG tablet Take 1 tablet by mouth at bedtime. amitriptyline 75 MG tablet daily. hydroCODone-acetaminophen 5-325 MG tablet Take 1-2 tablets by mouth every 6 hours as needed for up to 7 days. Do not take over 4000mg acetaminophen daily. 30 tablet 0 No facility-administered medications prior to visit. Current Outpatient Medications: Acetaminophen 325 MG tablet, Take 2 tablets by mouth every 6 hours as needed for Mild Pain., Disp: 50 tablet, Rfl: 0 alendronate 70 MG tablet, Take 1 tablet by mouth every 7 days. alendronate 70 mg tablet TAKE 1 TABLET BY MOUTH EVERY 7 DAYS WITH A FULL GLASS OF WATER ON AN EMPTY STOMACH. REMAIN UPRIGHT AND DO NOT EAT FOR NEXT 30 MINUTES, Disp: , Rfl: Amitriptyline 50 MG tablet, Take 1 tablet by mouth At bedtime., Disp: , Rfl: apixaban 2.5 MG tablet, Take 1 tablet by mouth every 12 hours. This medication is for blood clot prevention, Disp: 70 tablet, Rfl: 0 calcium carbonate 1250 (500 Ca) MG tablet, Take 1 tablet by mouth 2 times daily with meals., Disp: , Rfl: UROUKMK-FCJWFRIHS-MGIV PO, Take by mouth daily., Disp: , Rfl: Celecoxib 200 MG capsule, Take 1 capsule by mouth daily., Disp: 42 capsule, Rfl: 0 Dextromethorphan-Guaifenesin 60-1200 MG Tab SR 12 HR tablet, Take 1 Dose by mouth every 12 hours as needed., Disp: , Rfl: Docusate 100 MG capsule, Take 1 capsule by mouth 2 times daily., Disp: 60 capsule, Rfl: 0 Etanercept (Enbrel) 50 MG/ML Solution Prefilled Syringe injection, Inject 1 mL under the skin once a week., Disp: , Rfl: folic acid 1 MG tablet, Take 1 tablet by mouth daily. folic acid 1 mg tablet TAKE 1 TABLET BY MOUTH ONCE DAILY EXCEPT ON THE DAY METHOTREXATE IS TAKEN., Disp: , Rfl: hydroxychloroquine 200 MG tablet, Take 2 tablets by mouth daily., Disp: , Rfl: Losartan 25 MG tablet, Take 12.5 mg by mouth daily., Disp: , Rfl: methotrexate 2.5 MG tablet, Take 4 tablets by mouth every 7 days., Disp: , Rfl: Misc Natural Products (GLUCOSAMINE CHONDROITIN ADV PO), Take by mouth daily., Disp: , Rfl: Multiple Vitamin (Multi-Vitamin) tablet, Take 1 tablet by mouth daily., Disp: , Rfl: Prince-3 Fatty Acids (Fish Oil) 1000 MG capsule, Take by mouth daily., Disp: , Rfl: omeprazole [address] capsule, Take 1 capsule by mouth daily., Disp: 30 capsule, Rfl: 0 Polyethylene Glycol 3350 (MIRALAX PO), Take by mouth daily., Disp: , Rfl: propranolol 20 MG tablet, Take 3 tablets by mouth daily. TAKE 1 TABLET BY MOUTH IN THE MORNING AND 2 TABLETS IN THE EVENING, Disp: , Rfl: amitriptyline 100 MG tablet, Take 1 tablet by mouth at bedtime., Disp: , Rfl: amitriptyline 75 MG tablet, daily., Disp: , Rfl: hydroCODone-acetaminophen 5-325 MG tablet, Take 1-2 tablets by mouth every 6 hours as needed for up to 7 days. Do not take over 4000mg acetaminophen daily., Disp: 30 tablet, Rfl: 0 Allergies: She is allergic to etodolac, diclofenac, and diphenoxylate-atropine. documented in this encounter [facility] 06-19-2022 Note Formatting of this n ote might be different from the original. Discharge instructions and education reviewed with patient, education provided for DX and new medications, printed education given. Wound care and [facility] education also provided. Patient and family denies any questions, IV and tele removed. [facility] 06-19-2022 Miscellaneous Notes Discharge instructions and education reviewed with patient, education provided for DX and new medications, printed education given. Wound care and [facility] education also provided. Patient and family denies any questions, IV and tele removed. Assessment remains unchanged from previous, exceptions noted in flow sheet. Patient had PT/OT back to back and with pain medication she is still in 7/10 pain. PRN Tylenol given to aid in some pain relief. Patient states she may order lunch isnt sure at this time due to discharge. Call light within reach, denies any other needs at this time. Patient medicated for pain 7/10. Patient working with OT. Patient returned from therapy, alert and oriented x 4. Patient sitting up in chair, legs elevated and ice to right hip. [facility] dressing is clean, dry and intact. Patient complains of pain 7/10. Patient states she prefers the oral pain meds versus the IV. I stated to her she isn't due for oral pain meds yet but once she would have them I could medicate her pain. Patient denies chest pain or SOB. No complaints of nausea, vomiting or diarrhea. Patient denies any other needs at this time, call light within reach. Patient IV stopped per orders, patient is taking in adequate oral intake. Patient is leaving for therapy and states she has no needs at this time. Pt resting comfortably, prn Turner administered for pain with effectiveness. No changes from previous assessment. Hip dressing intact. Voiding and passing gas. Will continue to monitor for any changes. Pt c/o of right hip pain, prn Turner given with relief. ambulating to bedside commode with 1 person assistance. Educated on importance of incentive spirometer. DATE OF PROCEDURE: 06/18/2022 ATTENDING PHYSICIAN: Bradford Hussein M.D. CHANNEL OPENER: Ghanshyam Dye CNP. PREOPERATIVE DIAGNOSES: 1. Severe right hip osteoarthritis. 2. Abductor tear right hip. POSTOPERATIVE DIAGNOSES: 1. Severe right hip osteoarthritis. 2. Abductor tear right hip. PROCEDURES PERFORMED: 1. Anterolateral right total hip arthroplasty. 2. Periarticular injection right hip. 3. Interpretation of intraoperative x-ray right hip. ANESTHESIA: General. ANESTHESIOLOGIST: Per record. ESTIMATED BLOOD LOSS: 125 mL. COMPLICATIONS: None. INTRAVENOUS FLUIDS: Adequate. SPECIMENS: Bone. INSTRUMENTATION USED: DePuy [place] 50 mm cup with a 32 mm neutral liner, DePuy Actis size 5 high-offset hip stem, and a Biolox delta ceramic head +5/32 diameter, 12/14 taper. INDICATIONS: Heidi is an established patient of mine. She is a very pleasant, 67-year-old female with a history of severe right hip pain and has been diagnosed with osteoarthritis. She has failed conservative management and was given the options of treatment and elected to proceed forward with operative intervention. For that reason then, the patient was scheduled for the procedure for which patient appears today. Upon arrival to the preoperative unit, the risks, benefits and alternatives were thoroughly explained, informed consent was verified, and the surgical site was marked. After evaluation by Anesthesia and administration of the preoperative antibiotics, the patient was then brought to the operating room. DESCRIPTION OF THE PROCEDURE: Upon arrival to the operating room, the patient was placed supine on the operating room table and general anesthetic was induced. The patient was repositioned in a lateral decubitus position on the pegboard and all bony prominences were well padded. An axillary roll was placed. The operative region was then prepped and draped in a sterile standard fashion. A proper timeout was then performed. I began with a direct lateral incision and came down through the skin and the subcutaneous fat to the IT band. A Hanna elevator was used to develop a small plane over this. The IT band was then split in line with the original incision and an anterolateral approach to the hip was performed, taking off and tagging the anterior one-quarter of the abductor, which was then retracted anteriorly throughout the duration of the case. I then compared the operative leg to the down leg for leg length estimation and placed a suture marker in the skin for comparison to a ananth on the proximal lateral femur for additional leg length estimation. With progressive dissection across the proximal medial femur, I was able to atraumatically produce the femoral head and neck into the wound. This demonstrated severe endstage arthritis. Next, I proceeded to identify the superior aspect of the lesser trochanter. I marked my neck cut in accordance with my preoperative template, and a femoral head and neck osteotomy was performed. Following removal of the femoral head, the femur was translated posteriorly and exposure was gained about the acetabulum with two Zelpis and a cerebellar retractor. After adequate exposure was achieved a complete labrectomy was performed. I started off with a size 46 reamer and reamed up to a size 49 mm reamer. In doing so, I reamed to my templated planned position. I then impacted a 50 mm shell at approximately 40 degrees of abduction and 10-15 degrees of anteversion, which was in line with the natural acetabular anteversion and the transverse acetabular ligament. The cup was fully seated as visualized through the screw holes, had adequate bony coverage and was stable to manual stress. Rim osteophytes were safely removed. Following this, the wound was thoroughly irrigated and the final liner was impacted into the shell. It was free of soft tissue entrapment and verified to be secure. I then turned my attention to the proximal femur. With the proximal femur now re-exposed, I started off with a box osteotome and used a curved rasp to access the canal and verify correct placement. I then used a starting broach and increased up to a size 5 high-offset broach, which resulted in excellent coverage and fit. I placed this at approximately 10 degrees of anteversion in line with the posterior femoral cortical neck. I was overall satisfied with the metaphyseal stability of this construct and, at this point, I started off trialing head and neck options according to my preoperative template. The leg was reduced. Function and stability was assessed. There was excellent stability to full extension and external rotation to 90 degrees in both abduction and adduction. There was no impingement and no instability. There was full flexion and at 90 degrees of flexion. There was approximately 80 degrees of internal rotation without any evidence of impingement or instability. I was satisfied with the performance of the hip. There was appropriate pull of the abductors laterally and length and shoulder height, which matched that of my template. An intraoperative radiograph was taken, which confirmed position of the trials, as well as appropriate leg length and offset. Thus, at this point, the hip was re-dislocated. The trials were removed and the final implant was impacted down to a similar place as the trial. I retrialed the hip with a +5 neck option as I felt this best optimized length, offset, stability, and motion. The final head/neck combination was impacted onto a clean and dry Her taper, and this was verified to be secure. The hip was then reduced. The wound was soaked with a Betadine soak saline solution followed by gentle lavage. The periarticular injection was administered. Hemostasis was obtained and the wound was closed over 1 gram of vancomycin powder with 0-Vicryl in a figure-of-8 interrupted fashion starting with the gluteus minimus and the hip capsule. The gluteus medius was then closed with additional 0-Vicryl, and then over sewn with a #2 Quill. The construct was stressed without evidence of gapping and was otherwise stable and well reduced. The IT band was closed with a #2 Quill followed by #0 Quill for the subcutaneous fatty layer. The skin was closed with Dermabond. The extremity was cleansed and a sterile dressing was applied. The patient was then awoken from anesthetic, extubated and taken to postoperative care unit in stable condition. During exposure of the abductors, there was some partial thickness abductor tearing directly over the tip of the greater trochanter. This particular tear pattern was probably only 30%-40% of the fibers. It was anterior-inferior based. I incorporated it into my normal approach and, at the end of the operation, it repaired nicely back down without the need for any additional suture anchor-based repair. Furthermore, the patient s templated to a size 6 standard hip stem, but a 5 was full fit and fill given the offset difference at that I opted to increase to a size 5 high-offset, and as the stem was further seated, a +5 to gain adequate length. Overall, the hip maintained excellent stability at the end of the operation. POSTOPERATIVE PLAN OF CARE: 1. Touchdown weightbearing for 3 weeks, then partial weightbearing for 3 weeks, anterolateral hip precautions, no active abduction for 6 weeks. 2. Antibiotics 24 hours postop. 3. DVT prophylaxis, both mechanical and chemical. 4. Follow up in the office in 2-3 weeks. ATTENDING/ASSISTING PARTICIPATION: This operation could not have been safely performed (without compromising the technical results or length of the procedure) without the assistance of a skilled surgical manager. A surgical manager was medically necessary for positioning, retraction and instrumentation. POST OPERATIVE/PROCEDURE NOTE Heidi Mcintosh 67 y.o. female [id number] SURGEON Surgeon(s) and Role: * Bradford Hussein MD - Primary CHANNEL OPENER IZZY Calhoun ANESTHESIOLOGIST PRECISION INSTRUMENT MAKER AND REPAIRER: NICOLE Vital SURGICAL STAFF Supervisor Phosphoric Acid: Shama Tong RN; Virginia Willoughby RN; Jailyn Georges RN Nurse Practitioner: IZZY Calhoun Scrub Person: Edgardo Allen RN Experimental Welder: Osvaldo Shane LPN PROCEDURE PERFORMED Procedure(s) (LRB): ARTHROPLASTY HIP TOTAL AL +/- Abductor - Right *Ensure surgery* (Right) r hip periarticular injection intraop interpretation of xrau PRIMARY CLOSURE yes ANESTHESIA (type of) General ESTIMATED BLOOD LOSS 125 DRAINS none BLOOD PRODUCTS None PRE OPERATIVE DIAGNOSIS Primary osteoarthritis of right hip [M16.11] POST OPERATIVE DIAGNOSIS Primary osteoarthritis of right hip [M16.11] FINDINGS Severe oa hip CONDITION OF PATIENT Stable COMPLICATION No complications GRAFTS AND/OR IMPLANTS Implant Name Type Inv. Item Serial No. Occupational Nurse Lot No. LRB No. Used Action [place] Gripton Acetabular Shell Sector [id number] Right 1 Implanted [place] Altrx Polyethlene Acetabular Liner Neutral [id number] Right 1 Implanted Femoral Stem 06/12 Taper Actis Duofix Hip Prosthesis Cementless [id number] Right 1 Implanted Biolox Delta Ceramic Femoral Head +5.0 [id number] Right 1 Implanted SPECIMENS ID Type Source Tests Collected by Time Destination 1 : Right Femoral Head Permanent TISSUE SURGICAL PATHOLOGY REQUEST Bradford Hussein MD 06/18/2022 [id number] IZZY Calhoun June 18, 2022 10:06 AM 05/20/22 0955 Information Source Information Source patient Contact Information Squeak Rattle And Leak Repairer Name Claudia Gray RN Case Manager's Living Environment Lives With spouse Living Arrangements house (Two story home, main floor living, 12 steps to enter home) Provides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 For no one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 Provided By self Support System Immediate family Able to Return to Prior Arrangements yes Employment/Financial Employed? Retired Cognitive/Perceptual/Developmenta l Current Mental Status/Cognitive Functioning no deficits noted Recent Changes in Mental Status/Cognitive Functioning no changes Developmental Stage Stage 8 (65 years-/Late Adulthood) Integrity vs. Despair Emotional/Psychological Affect no deficits noted Mood congruent to situation Verbal Skills no deficits noted Current Interpersonal Conduct/Behavior appropriate to situation Mental Health Conditions/Symptoms none;denies Thought Process Alterations no deficits noted Referral Information Referral Source physician CM met with patient this date to discuss post-surgical discharge plans. Patient states that she plans to return home with her spouse and no needs for her hip. Patient has a wheeled walker, instructed to bring with her on the day of surgery. She also has a cane, bathroom grab bars and high rise toilet. Patient denies any other questions or needs at this time. CM to continue to follow and assist with discharge plans. documented in this encounter [facility] 06-19-2022 Note Formatting of this n ote might be different from the original. Assessment remains unchanged from previous, exceptions noted in flow sheet. Patient had PT/OT back to back and with pain medication she is still in 7/10 pain. PRN Tylenol given to aid in some pain relief. Patient states she may order lunch isnt sure at this time due to discharge. Call light within reach, denies any other needs at this time. [facility] 06-19-2022 Hospital Discharge instructions Treva Dugan RN - 06/19/2022 11:23 AM EST Ambulate with wheeled walker until follow up appointment or directed by Dr. Hussein. You have been given printed educational handouts on all new medications. Please refer to your green discharge folder for handouts. You have been given seven ABD pads, one ice gel compression wrap, six ice gel packs, two pairs of DEANNE hose and all personal belongings. If at any time you have questions please refer to your green discharge folder with all at home care instructions. Deanne Hose: > Help reduce the risk of blood clots and decrease swelling > To be worn bilaterally to the lower extremities for 30 days post-op > You are able to take your DEANNE hose off for 1 hour for every 8 hours that they wear them Medications: > You have been sent home with prescriptions, including medication for pain to be taken as directed. Stay ahead and do not allow your pain to get out of control. > If prescribed Aspirin, take twice a day for 30 days. Do not skip a dose, this is your medication for the prevention of blood clots. > If you have not had a bowel movement by your 3rd post-operative day you will need to use a gentle over the counter laxative such as Milk of magnesia, Fiberlax, Miralax, etc. Bowels need to move within 3 days or take action. Gel Ice Packs > Change every 4 hours or as needed for swelling and pain for at least the first 2 weeks Ambulation > Weight bearing status : For Knee Replacements: > Above weight bearing status as tolerated with a walker then progress to a cane if stable, unless noted otherwise by the physician or therapist. > Physical therapy 3 times per week for 6 full weeks > Maintain uninterrupted therapy if transitioning from home therapy to out patient therapy > No therabands over your wound/incision > Patients should be doing home exercises on days they are not working with a therapist > Do not rest with a pillow under the knee, work on flexion and extension exercises to improve range of motion For Direct Anterior Total Hip Replacement: > No formal physical therapy, walking is the patients best therapy, unless otherwise noted. For Anterior Lateral Total Hip Replacement: > General Hip Precautions Post op (unless otherwise noted from the doctor): * Do not cross legs at knee or ankles * Do not bend past 90 degrees * Do not twist * May roll to side with pillow between legs Hip Precautions: toe touch weight bearing, no active abduction Anesthesia Precautions & Expectations: After anesthesia, rest for [address], drink alcoholic beverages or make any important decisions during this time. General anesthesia may cause a sore throat, jaw discomfort or muscle aches. These symptoms can last for one or two days. If you have been discharged the same day as surgery, Dr. Hussein's office will call you the morning after your discharge to follow up with how your recovery is progressing at home. NTINA Dugan RN - 06/19/2022 11:24 AM EST Contact Office ([phone]) if: > Any falls or injuries > Redness, drainage or swelling at the incision site that is out of the ordinary from post-operative findings (minor redness, swelling and warmth around the entire knee are common post-operatively) > Patient non-compliance with assistive devices during gait > Fever > 101 degrees. For low grade fevers use Incentive Spirometry @ 10 puffs per hour and tylenol as directed. NTINA Dugan RN - 06/19/2022 11:26 AM EST You have been given an educational handout on your DUKE dressing that is covering your incision. You will remove this dressing 06/25/2022 morning Friday. Gently peel back the dressing while holding the skin taught. Do not rip or quickly pull off dressing. Once the dressing is removed you will discard the dressing, tubing and battery pack in the trash. Once your DUKE dressing is removed you will place an ABD over your incision for comfort. Your incision is closed with Dermabond. You may shower with this. Do not saturate or submerge extremity in water (i.e. Bathtub, hot tub, etc.) until cleared by the provider. Do not wash/scrub directly over/on your incision. Pat your incision dry do not rub your incision with a towel. Do not place any lotions, ointments, creams or powder on your incision or operative leg. When applying your new ABD pad after showering as a reminder do not place any tape over you ABD pad. Your underwear are to hold your pad in place. [facility] The following attachments cannot be sent through Care Everywhere.acetaminophen (oral) (Cameroonian)apixaban (Cameroonian)docusate (oral/rectal) (Cameroonian)acetaminophen and hydrocodone (Cameroonian)omeprazole (Cameroonian)celecoxib (Cameroonian)documented in this encounter [facility] 06-19-2022 Note Formatting of this n ote might be different from the original. Patient medicated for pain 01/06. Patient working with OT. [facility] 06-19-2022 History of Present illness Narrative NUTRITION ASSESSMENT: POST-OP ORTHOPEDIC Nutrition Assessment Will order Ensure Max with lunch. Pt would benefit from the additional kcal, protein, vitamins, and minerals to help meet increased nutrition needs based on recent orthopedic surgery with Dr. Hussein. Recommend to continue supplementation at home for 2-4 weeks after surgery. Anthropometrics: Ht Readings from Last 1 Encounters: 06/18/22 1.524 m (5') Wt Readings from Last 5 Encounters: 06/19/22 74.3 kg (163 lb 12.8 oz) 05/10/22 61.7 kg (136 lb) 04/17/22 61.7 kg (136 lb) 04/10/22 61.8 kg (136 lb 3.2 oz) 03/21/22 60.8 kg (134 lb) [place] body weight: 45.5 kg (100 lb 4.9 oz) Adjusted ideal body weight: 57 kg (125 lb 11.3 oz) Body mass index is 31.99 kg/m . Nutrition Intake: Current Diet Orders Procedures DIET REGULAR Standing Status: Standing Number of Occurrences: 1 Allergies Allergen Reactions Etodolac Diarrhea Diclofenac Diarrhea Diphenoxylate-Atropine Diarrhea Labs: Lab Results Component Value Date GLUCOSE 125 (H) 06/18/2022 GLUCOSE 84 05/20/2022 HGBA1C 5.5 05/20/2022 SODIUM 136 05/20/2022 POTASSIUM 4.4 05/20/2022 CALCIUM 9.1 05/20/2022 ALBUMIN 3.6 05/20/2022 TP 6.3 05/20/2022 BUN 23 (H) 05/20/2022 CREATSERUM 0.69 05/20/2022 AST 52 (H) 05/20/2022 ALT 47 05/20/2022 HGB 9.9 (L) 06/19/2022 HCT 29.9 (L) 06/19/2022 WBC 7.5 06/19/2022 RBC 3.12 (L) 06/19/2022 PMH & PSH: Past Medical History: Diagnosis Date Arthritis Chronic rheumatic arthritis Essential hypertension, benign MD (myocardial infarction) stress MD, 05/2021 Migraine Pulmonary embolism Past Surgical History: Procedure Laterality Date ARTHROPLASTY HIP TOTAL Right 06/18/2022 Laterality: Right; Surgeon: Bradford Hussein MD; Location: [facility] OR APPENDECTOMY age 10 BUNIONECTOMY Bilateral TONSILLECTOMY Nutrition Diagnosis NI-5.1 Increased protein needs related to increased demand for protein as evidenced by s/p orthopedic surgery. Interventions Order Ensure Max with lunch Diet order: Advise Heart Healthy diet or per MD choice Monitoring & Evaluation PO intake, labs, weight, ONS intake, and medical condition LYN Hernandez Registered Dietitian, Licensed Dietitian 06/19/22 06/19/22 0825 Time In/Out Time In 0823 Time Out 0950 Total Visit Time 87 minutes Total Treatment Time (skilled, billable minutes) 87 minutes Subjective RN Approved Intervention as tolerated Existing Precautions/Restrictions fall;hip;weight bearing (ant/lat hip precautions, no active hip abduction) Subjective Reports Pt reports mild pain only at start of session. Cognitive Status Examination Orientation Status (Cognition) oriented x 4 Level of Consciousness alert Able to Follow Commands (Communication) WFL Personal Safety and Judgment impaired General Pain Documentation (Adult, OB, Peds) Presence of Pain complains of pain/discomfort Pain Location hip, right Select Pain Scale DVPRS (Defense and Veterans Pain Rating Scale) (Adult-Cognitively Intact) DVPRS (Defense and Veterans Pain Rating Scale) DVPRS: Rest 7- severe pain DVPRS: Activity 7- severe pain Objective Therapeutic Interventions Pt begins with transfer supine to sit with verbal cues using the leg death claim clerk. STS from EOB with verbal cues for maintaining hip precautions TTWB RLE. Gt with FWW from EOB to toilet with CGA verbal cues for maintaining TTWB on RLE and sequencing with FWW. Pt transfers onto and off of toilet with minAx1. Gt with FWW 1x10ft from toilet to W/C outside of room CGA. Pt performs steps with crutch and TTWB RLE x4 steps for 2 reps. Verbal cues throughout steps for WB and sequencing. Car transfer simulation with CGA using leg death claim clerk and verbal cues for using left death claim clerk correctly. Pt wheeled back to room where we reviewed precautions with pt and pt spouse. Pt performs AP, QS, GS, SAQ and heel slides x3-5 reps each to review HEP. All questions answered for pt and pt spouse. pt provided with cold pack on Rt hip and call light in reach. Transfer Skill: Sit To Stand, Rehab Eval Rincon (Sit-Stand Transfers) contact guard Physical Assist/Nonphysical Assist: Sit/Stand 1 person assist Weight-Bearing Restrictions: Sit/Stand toe touch weight-bearing Assistive Device For Transfer: Sit/Stand 2 wheeled walker Gait Skills, PT Eval Level of Rincon: Gait contact guard Physical Assist/Nonphysical Assist: Gait 1 person assist Weight-Bearing Restrictions: Gait toe touch weight-bearing Assistive Device For Transfer: Gait 2 wheeled walker Gait Distance 25 feet Stair Negotiation Rincon Level: Stair Negotiation contact guard assist Physical Assist: Stair Negotiation (1 person) Weight-Bearing Restrictions: Stair Negotiation toe touch weight-bearing Assistive Device: Stair Negotiation gait belt Number of stairs 8 Stair Railings present on left side (ascending) Clinical Impression Co-evaluation/co-treatment performed? No simultaneous skilled care performed Today's Treatment Included therex, gait, stair climbing, transfers Assessment Progress toward goals Pt performs steps with CGA, verbal cues for safety and use of crutches. Gt with FWW TTWB on RtLE CGA with verbal cues. Car transfer simulation with SBA. Plan Plan for next visit Continue with gait, LE strength and transfers. Total Joint Progress Note P O DAY # 1 PROCEDURE: r stephanie al SUBJECTIVE: No new symptoms or complaints PAIN RATIN/10 OBJECTIVE: Lab Results Component Value Date WBC 7.5 06/19/2022 HGB 9.9 (L) 06/19/2022 HGB 11.0 (L) 06/18/2022 HGB 11.2 (L) 06/18/2022 HCT 29.9 (L) 06/19/2022 HCT 33.9 (L) 06/18/2022 HCT 33.9 (L) 06/18/2022 PLATELET 112 (L) 06/19/2022 MCV 95.9 06/19/2022 Lab Results Component Value Date SODIUM 136 05/20/2022 POTASSIUM 4.4 05/20/2022 CHLORIDE 99 05/20/2022 CO2 27 05/20/2022 BUN 23 (H) 05/20/2022 CREATSERUM 0.69 05/20/2022 GLUCOSE 125 (H) 06/18/2022 Vital Signs: Vitals: 06/19/22 0352 BP: 93/49 Pulse: 82 Resp: 18 Temp: 98.2 F (36.8 C) Patient is alert and oriented times three. Abdomen: Soft, non-tender without organomegaly and bowel sounds are active Vascular: Dorsalis pedis/posterior tibial pulses RIGHT/LEFT/BILATERAL: Bilateral NORMAL / ABNORMAL (RESULT): Normal Neuro: Intact/deficit: intact to light touch Wound Appearance: DESCRIPTION; WOUND: incision Erythema: PRESENT OR ABSENT: absent Drainage none Dressing: Clean/dry/intact DVT Screening Exam: Calves soft/non-tender Deanne hose: PRESENT OR ABSENT: present Foot pumps/ SCD's: PRESENT OR ABSENT: present Hemovac Drain Output: na mL/last shift Physical Therapy: Gait Distance: Up to bedside Feet: ASSESSMENT: sp r stephanie al pod 1 PLAN: 1. PT/OT 2. IV antibiotics 3. DVT prophylaxis 4. Discharge planning DISCHARGE PLANNING: plans; post hospital: SEE SS NOTES AOP Patient Education on Meds to Beds Scripts AOP received prescriptions for Heidi Mcintosh for bedside delivery at discharge Medications ordered: Eliquis Turner 5-325 mg Celecoxib 200 mg Docusate 100 mg Tylenol [address] 20 mg Issues Identified For Eliquis, only filled a 30 day supply due to cost, pt aware she will need to refill the remaining 5 day course (10 tabs). Patient Education Counseled patient on appropriate use and side effects of medications. Rosaline Burr RPH 06/18/22 1801 Time In/Out Time In 1801 Time Out 1839 Total Visit Time 38 minutes Initial Evaluation/Screen Completed? yes General Information RN Approved Intervention as tolerated Admitting Diagnosis osteoarthritis of hip Surgical Procedure right STEPHANIE (anterior/lateral) Past Surgical History Past Surgical History: Procedure Laterality Date APPENDECTOMY age 10 BUNIONECTOMY Bilateral TONSILLECTOMY Past Medical History Past Medical History: Diagnosis Date Arthritis Chronic rheumatic arthritis Essential hypertension, benign MD (myocardial infarction) stress MD, 05/2021 Migraine Pulmonary embolism Existing Precautions/Restrictions fall;hip;weight bearing (TTWB, ant/lat hip precautions, no active hip abduction) Previous Level of Function Bed Mobility/Transfers independent Bathing independent Upper Body Dressing independent Lower Body Dressing Needs assist Grooming independent Toileting independent Eating independent Home Management Skills Needs assist General Pain Documentation (Adult, OB, Peds) Presence of Pain complains of pain/discomfort Pain Location hip, right Pain Management Interventions cold application Select Pain Scale (2/10) Home Setting Residence House Lives With spouse First floor setup bedroom;tub shower;grab bars Number of Stairs to Enter Home 13 Number of Stairs Within Home 0 Equipment Available straight cane;wheeled walker;shower chair (high rise toilet) Cognitive Status Examination Orientation Status (Cognition) oriented x 4 Level of Consciousness alert Able to Follow Commands (Communication) WFL Personal Safety and Judgment impaired Sensory Examination Sensory Examination WFL Range of Motion (ROM) Range of Motion Examination bilateral upper extremity ROM was WFL Manual Muscle Testing (MMT) Dominant Hand right Bed Mobility Skill: Supine to Sit, Rehab Eval Level of Rincon: Supine/Sit stand-by assist Physical Assist/Nonphysical Assist: Supine/Sit 1 person assist Transfer Skill: Sit to Stand, Rehab Eval Level of Rincon: Sit/Stand contact guard Physical Assist/Nonphysical Assist: Sit/Stand 1 person assist Weight-Bearing Restrictions: Sit/Stand toe touch weight-bearing Assistive Device for Transfer: Sit/Stand wheeled walker Upper Body Dressing Level of Rincon stand-by assist Physical Assist/Nonphysical Assist 1 person assist Lower Body Dressing Level of Rincon maximum assist (25% patients effort) Physical Assist/Nonphysical Assist 1 person + 1 person to manage equipment Assistive Device knife operator Toileting Level of Rincon moderate assist (50% patients effort) Physical Assist/Nonphysical Assist 1 person assist General Therapy Interventions Planned Therapy Interventions (OT Eval) ADL retraining;balance training;transfer training Clinical Impression Co-evaluation/co-treatment performed? Yes, combination of simultaneous billable and individual billable skilled care Patient Instruction Pt instructed on LB dressing techniques donning underwear and shorts with training on use of knife operator in sitting and standing with assistance to roya mesh underwear patient reports she has boxer briefs at home, mod assist to roya shorts over bilateral hips due to instability in standing. instruction on BSC transfer completing CGA Rehab Potential (OT Eval) good, to achieve stated therapy goals Therapy Frequency 7 times a week Anticipated Equipment Needs at Discharge (OT Eval) bathing equipment;dressing equipment Today's Treatment Included Pt demonstrates decreased safety awareness during functional mobility and transfer training following initial instruction. Pt require frequent cuing throughout transfers to complete with proper sequencing and following TTWB. Pt will need a hip kit Continue care plan yes Goals Goals For Discharge Pt will return home Discussed risk / benefits with patient;patient's family Therapist Recommendations At Discharge Recommendations OT Services not recommended at Discharge Plan Plan for next session continue with AE training for bathing, dressing, bathroom transfers and hygiene training Therapist Information License # [id number] 1. Pt will complete LB dressing min assist with AE 2. Pt will complete sponge bathing min assist 3. Pt will complete toileting MOD I 4. Pt will complete hygiene/grooming standing at sink MOD I 5. Pt will complete simulated tub/shower transfer min assist 06/18/22 1750 Time In/Out Time In 1750 Time Out 1817 Total Visit Time 27 minutes PT Therapy Completed Yes Initial Evaluation/Screen Completed? yes General Information RN Approved Intervention as tolerated Diagnosis OA of the R hip Surgical Procedure R STEPHANIE (anterior/lateral) Past Medical History Past Medical History: Diagnosis Date Arthritis Chronic rheumatic arthritis Essential hypertension, benign MD (myocardial infarction) stress MD, 05/2021 Migraine Pulmonary embolism Past Surgical History Past Surgical History: Procedure Laterality Date APPENDECTOMY age 10 BUNIONECTOMY Bilateral TONSILLECTOMY Existing Precautions/Restrictions fall;hip;weight bearing (A/L hip precautions, no active hip abd, TTWB on the R LE) Right Lower Extremity toe touch weight bearing Home Setting Residence House Lives With spouse First floor setup bedroom Number of stairs to enter home 12 Stair Railings at Home entry - with rail Mobility Equipment Available 2 wheeled walker;straight cane Previous Level of Function Ambulation Skills independent Assistive Device none used (occasional use of cane) Level of Ambulation community General Pain Documentation (Adult, OB, Peds) Presence of Pain denies pain/discomfort Cognitive Status Examination Orientation Status (Cognition) oriented x 4 Level of Consciousness alert Able to Follow Commands (Communication) WFL Personal Safety and Judgment impaired Range of Motion (ROM) Range of Motion Examination bilateral lower extremity ROM was WFL Manual Muscle Testing (MMT) Manual Muscle Testing Results deficits as listed below (R hip 4/5) Bed Mobility Skill: Supine to Sit, Rehab Eval Level of Rincon: Supine/Sit stand-by assist Physical Assist/Nonphysical Assist: Supine/Sit 1 person assist Transfer Skill: Sit To Stand, Rehab Eval Rincon (Sit-Stand Transfers) contact guard Physical Assist/Nonphysical Assist: Sit/Stand 1 person assist Weight-Bearing Restrictions: Sit/Stand toe touch weight-bearing Assistive Device For Transfer: Sit/Stand 2 wheeled walker Gait Skills, PT Eval Level of Rincon: Gait contact guard Physical Assist/Nonphysical Assist: Gait 1 person assist Weight-Bearing Restrictions: Gait toe touch weight-bearing Assistive Device For Transfer: Gait 2 wheeled walker Gait Distance bed to chair Balance Additional Documentation (Seated: Good; Standing: Fair-) Sensory Examination Sensory Examination WFL Plan of Care Interventions Planned Therapy Interventions balance training;edema control;endurance;gait training;strengthening;transfer training Additional Comments Pt performed glut sets, quad sets, heel slides, SAQ, and ankle pumps on the R LE for 1x10. Pt educated on sequencing for transfers and gait using FWW to maintain TTWB. Gait limited due to dizziness. Assessment Assessment Narrative Pt is a 67 year old female s/p R STEPHANIE (anterior/lateral). Pt is doing well post op however does report significant dizziness. Mobility limited at this time due to dizziness. Pt does demonstrate the ability to maintain weight bearing status. Pt is expected to improve and should be safe to return home. Discharge Recommendations Pt to return home with HEP Clinical Impression Co-evaluation/co-treatment performed? Yes, combination of simultaneous billable and non-billable care Criteria for Skilled Therapeutic Interventions Met (PT Eval) yes, treatment indicated Impairments Found (PT Eval) Strength;Balance;Transfers;Gait/L ocomotion;Edema;Aerobic capacity/endurance Rehab Potential (PT Eval) good Therapy Frequency 7 times a week PT Therapies Still to Complete 6 Continue care plan yes Today's Treatment Included PT evaluation, ther ex, gait and patient education Therapist Recommendations At Discharge Recommendations PT Services not recommended at Discharge Plan Plan for next session Next visit review precautions, progress mobility, practice car transfers and steps as able, and review/perform HEP. PT Goals: 1. Pt will demonstrate understanding of all precautions during functional mobility. 2. Pt will perform all transfers with FWW and SBA to improve safety at home. 3. Pt will ambulate 100ft with FWW and SBA. 4. Pt will ambulate up and down 4 steps with CGA. 5. Pt will be independent with HEP per protocol. Patient instructed on proper use of incentive spirometer. Patient achieves 1500cc. Patient demonstrates good technique and understanding. Patient was assessed in [facility] on 05/20/22. Met with patient for follow up after surgery to discuss discharge plan. Patient plans to return home with spouse and HEP, pending therapy evaluation. Patient has a wheeled walker and denies any equipment needs at this time. Nursing reports that the incision has been closed with dermabond with DUKE in place, will request a 3 week follow up appointment. Patient denies any other questions or needs at this time. Follow up appointment scheduled for 07/10/21 @ 11:00 am. Patient transferred to room 3752 via cart in stable condition. Report given to AARTI Coleman. Bed transferred from cart to bed and bed left in locked and lowest position with side rails up x2. Call light given to patient. Monitors and alarms on and attached to patient. THIS PATIENT HAS HAD ORTHOPEDIC SURGERY AND IS EXPECTED TO HAVE PAIN REQUIRING NARCOTICS FOR >7 DAYS AND MAY NEED UP TO 8 tabs of norco PER DAY AND THEREFORE 30tabs ARE BEING DISPENSED IN ACCORDANCE WITH POC DISCUSSED WITH DR HUSSEIN. documented in this encounter [facility] 06-19-2022 Note Formatting of this n ote might be different from the original. Patient returned from therapy, alert and oriented x 4. Patient sitting up in chair, legs elevated and ice to right hip. DUKE dressing is clean, dry and intact. Patient complains of pain 7/10. Patient states she prefers the oral pain meds versus the IV. I stated to her she isn't due for oral pain meds yet but once she would have them I could medicate her pain. Patient denies chest pain or SOB. No complaints of nausea, vomiting or diarrhea. Patient denies any other needs at this time, call light within reach. [facility] 06-19-2022 Note Formatting of this n ote might be different from the original. Patient IV stopped per orders, patient is taking in adequate oral intake. Patient is leaving for therapy and states she has no needs at this time. [facility] 06-19-2022 Hospital course Narrative Images from the original note were not included. Discharge Summary Name: Heidi Mcintosh Age: 67 y.o. Birthday: 1955 Admit Date: 06/18/2022 6:41 AM Discharge Date: 06/19/22 Discharge Time: afternoon Discharge Unit: Med/Surg Admission Information Admitting Physician: Bradford Hussein MD Discharge Information Discharge Physician: Darian Cisneros MD Problem List Active Hospital Problems Diagnosis Primary osteoarthritis of one hip, right Resolved Hospital Problems No resolved problems to display. Brief Summary of Hospital Course for Discharge Summary: Medical Consultation Patient is a 67 yo female s/p right STEPHANIE. She is doing well postoperatively. BP low initially. Better with fluids and Rx. No recurrence. Pain controlled. Has ambulated and voided. Denies CP, palpitations, SOB, cough, sputum, nausea, vtg, edema. Therapy going well. Known CHF. Takotsubo cardiomyopathy. Most recent EF normal. No signs of CHF. Known RA - controlled. H/O PE. Anticoagulation resumed. Known high blood pressure. she is feeling well. There are no complaints relative to her blood pressure. Ambulatory blood pressures are normal. Patient is compliant with medications. she denies any side effects from medications. she denies chest pain, SOB, [place], palpitations, orthopnea, PND, edema, headache, focal neurologic complaints, claudication. General: No fever, chills, weight loss. HEENT: No sinus pain, ear pain, sore throat. Neck: No LAD. Lungs: No cough, sputum, pleuritic pain, hemoptysis, SOB. CV: No chest pain, palpitation, orthopnea, PND, edema. GI: No abd pain, nausea, vomiting, diarrhea, constipation, melena, hematochezia. : No dysuria, frequency, hematuria. Skin: No rash or lesion. Neuro: No mental status changes, headache, focal neurologic complaints. Objective: Blood pressure 93/49, pulse 82, temperature 98.2 F (36.8 C), temperature source Temporal, resp. rate 18, height 1.524 m (5'), weight 74.3 kg (163 lb 12.8 oz), SpO2 97 %. Results for orders placed or performed during the hospital encounter of 06/18/22 XR HIP RIGHT 1 VIEW Result Value Ref Range BSA 1.58 m2 HEMOGLOBIN & HEMATOCRIT Result Value Ref Range HEMOGLOBIN (HGB) 11.2 (L) 12.0 - 16.0 G/DL HEMATOCRIT (HCT) 33.9 (L) 36.0 - 48.0 % HEMOGLOBIN & HEMATOCRIT Result Value Ref Range HEMOGLOBIN (HGB) 11.0 (L) 12.0 - 16.0 G/DL HEMATOCRIT (HCT) 33.9 (L) 36.0 - 48.0 % CBC, EDIF, PLATELET Result Value Ref Range WBC (WHITE BLOOD COUNT) 7.5 3.6 - 11.0 10*3/uL RBC 3.12 (L) 4.0 - 5.4 10*6/uL HEMOGLOBIN (HGB) 9.9 (L) 12.0 - 16.0 G/DL HEMATOCRIT (HCT) 29.9 (L) 36.0 - 48.0 % MEAN CELL VOLUME 95.9 80.0 - 100.0 FL Mean Cell HGB 31.6 26.0 - 35.0 PG MEAN CELL HGB CONCENTRATION 33.0 27.0 - 37.0 G/DL RBC DISTRIBUTION 15.2 (H) 11.5 - 14.5 % PLATELET COUNT 112 (L) 130.0 - 400.0 10*3/uL MEAN PLATELET VOLUME 8.6 7.4 - 11.0 FL DIFFERENTIAL TYPE AUTO DIFF % NEUTROPHILS 58.3 37.0 - 75.0 % LYMPHOCYTE 21.1 20.0 - 55.0 % MONOCYTE % 20.2 (H) 0.0 - 10.0 % EOSINOPHIL % 0.2 0.0 - 11.0 % BASOPHIL % 0.2 0.0 - 2.0 % Absolute Neutrophil Count 4.4 1.4 - 6.5 10*3/uL LYMPHOCYTES, ABSOLUTE 1.6 1.2 - 3.4 10*3/uL MONOCYTES, ABSOLUTE 1.5 (H) 0.0 - 0.7 10*3/uL ABSOLUTE EOSINOPHIL COUNT 0.0 0.0 - 0.7 10*3/uL ABSOLUTE BASOPHIL COUNT 0.0 0.0 - 0.2 10*3/uL GLUCOSE (POC DEVICE) Result Value Ref Range GLUCOSE, POINT OF CARE 125 (H) 70 - 100 MG/DL English Teacher 207,205 REPEAT ABO/RH (D) TYPING Result Value Ref Range ABO/RH(D) A POSITIVE HEENT: NC/AT, PERRLA, EOMI, fundi benign, external ears normal, OP normal. Neck: No LAD/thyromegaly. No JVD/bruit. Lungs: Clear to auscultation bilaterally. No wheezes, rales, ronchi. Heart: RRR. No S3/S4. Abdomen: Soft, NT/ND, normal bowel sounds, no HSM, no bruits. Extremities: No clubbing, cyanosis, edema. Normal pulses. Neurologic: CN II-XII intact. Strength/DTR's/sensation symmetric. Cerebellar function normal. Skin: No rash or suspicious lesions. Musculoskeletal: No edema, redness, warmth, deformities. Psychiatric: Alert and oriented. Affect and mood normal. Assessment and Plan: POD #1 STEPHANIE - therapy going well. Pain controlled. CHF - daily weights at home. Limit sodium. HTN - resume medications at home and monitor BP's closely. Medically stable for discharge. 30 minutes total time. Darian Cisneros MD 06/19/2022 Brief Summary of Consults for Discharge Summary: Brief Summary of Procedures and Imaging for Discharge Summary: Summary of last selected lab results and date obtained: Lab Results Component Value Date WBC 7.5 06/19/2022 HGB 9.9 (L) 06/19/2022 HCT 29.9 (L) 06/19/2022 PLATELET 112 (L) 06/19/2022 MCV 95.9 06/19/2022 Lab Results Component Value Date SODIUM 136 05/20/2022 POTASSIUM 4.4 05/20/2022 CHLORIDE 99 05/20/2022 CO2 27 05/20/2022 BUN 23 (H) 05/20/2022 CREATSERUM 0.69 05/20/2022 GLUCOSE 125 (H) 06/18/2022 Lab Results Component Value Date ALT 47 05/20/2022 AST 52 (H) 05/20/2022 ALKPHOS 50 05/20/2022 BILITOTAL 0.7 05/20/2022 Brief Summary of Labs for Discharge Summary: No discharge procedures on file. Current Outpatient Meds: Medication List for when you go home START taking these medications Acetaminophen 325 MG tablet Take 2 tablets by mouth every 6 hours as needed for Mild Pain. Commonly known as: TYLENOL apixaban 2.5 MG TABS Take 1 tablet by mouth every 12 hours. This medication is for blood clot prevention Commonly known as: ELIQUIS Docusate 100 MG CAPS Take 1 capsule by mouth 2 times daily. Commonly known as: COLACE hydroCODone-acetaminophen 5-325 MG TABS Take 1-2 tablets by mouth every 6 hours as needed for up to 7 days. Do not take over 4000mg acetaminophen daily. Commonly known as: NORCO For diagnoses: Acute postoperative pain of right hip omeprazole [address] capsule Take 1 capsule by mouth daily. Commonly known as: PRILOSEC CHANGE how you take these medications Celecoxib 200 MG CAPS Take 1 capsule by mouth daily. Commonly known as: CELEBREX What changed: How often you have reported taking this medication has changed You should now only take this medication as needed CONTINUE taking these medications alendronate 70 MG TABS Take 1 tablet by mouth every 7 days. alendronate 70 mg tablet TAKE 1 TABLET BY MOUTH EVERY 7 DAYS WITH A FULL GLASS OF WATER ON AN EMPTY STOMACH. REMAIN UPRIGHT AND DO NOT EAT FOR NEXT 30 MINUTES Commonly known as: FOSAMAX * Amitriptyline 75 MG TABS daily. Commonly known as: ELAVIL * Amitriptyline 50 MG TABS Take 50 mg by mouth At bedtime. Commonly known as: ELAVIL * Amitriptyline 100 MG TABS Take 1 tablet by mouth at bedtime. Commonly known as: ELAVIL calcium carbonate 1250 (500 Ca) MG TABS Take 1,250 mg by mouth 2 times daily with meals. Commonly known as: OS-SAI [id number] PO Take by mouth daily. Dextromethorphan-Guaifenesin 60-1200 MG tab SR tablet Take 1 Dose by mouth every 12 hours as needed. Enbrel 50 MG/ML SOSY injection Inject 50 mg under the skin once a week. Generic drug: Etanercept Fish Oil 1000 MG CAPS Take by mouth daily. Folic acid 1 MG TABS Take 1 tablet by mouth daily. folic acid 1 mg tablet TAKE 1 TABLET BY MOUTH ONCE DAILY EXCEPT ON THE DAY METHOTREXATE IS TAKEN. Commonly known as: FOLVITE GLUCOSAMINE CHONDROITIN ADV PO Take by mouth daily. Hydroxychloroquine 200 MG TABS Take 400 mg by mouth daily. Commonly known as: PLAQUENIL Losartan 25 MG TABS Take 12.5 mg by mouth daily. Commonly known as: COZAAR methotrexate 2.5 MG tablet Take 4 tablets by mouth every 7 days. MIRALAX PO Take by mouth daily. Multi-Vitamin TABS Take 1 tablet by mouth daily. Propranolol 20 MG TABS Take 3 tablets by mouth daily. TAKE 1 TABLET BY MOUTH IN THE MORNING AND 2 TABLETS IN THE EVENING Commonly known as: INDERAL * The same medication is listed twice. Please discuss with your provider. STOP taking these medications divalproex [address] Commonly known as: DEPAKOTE pregabalin 25 MG CAPS Commonly known as: Lyrica Follow-up: No follow-up provider specified. Upcoming Appointments (up to five)-Some appointments for [facility] Center outpatient clinics or diagnostic testing locations are not displayed below Provider Department Dept Phone 07/10/2022 11:00 AM [facility] [phone] documented in this encounter [facility] 06-19-2022 Note Formatting of this n ote might be different from the original. Pt resting comfortably, prn Turner administered for pain with effectiveness. No changes from previous assessment. Hip dressing intact. Voiding and passing gas. Will continue to monitor for any changes. [facility] 06-19-2022 Note Formatting of this n ote might be different from the original. Pt c/o of right hip pain, prn Turner given with relief. ambulating to bedside commode with 1 person assistance. Educated on importance of incentive spirometer. [facility] 06-18-2022 Consult note Associated Order (s): IP CONSULT TO GENERAL MEDICINE Medical Consultation Patient is a 67 yo female s/p right STEPHANIE. She was at her baseline state of health prior to surgery. 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 Notable for ECHO most recent EF back to 55%, trace leuk with contaminant on culture, AST 52. She is doing well postoperatively. BP low initially. Better with fluids and Rx. Pain controlled. Has not ambulated or voided. Denies CP, palpitations, SOB, cough, sputum, nausea, vtg, edema. Known CHF. Takotsubo cardiomyopathy. Most recent EF normal. Known RA - controlled. H/O PE. Known high blood pressure. she is feeling well. There are no complaints relative to her blood pressure. Ambulatory blood pressures are normal. Patient is compliant with medications. she denies any side effects from medications. she denies chest pain, SOB, HIGGINBOTHAM, palpitations, orthopnea, PND, edema, headache, focal neurologic complaints, claudication. General: No fever, chills, weight loss. HEENT: No sinus pain, ear pain, sore throat. Neck: No LAD. Lungs: No cough, sputum, pleuritic pain, hemoptysis, SOB. CV: No chest pain, palpitation, orthopnea, PND, edema. GI: No abd pain, nausea, vomiting, diarrhea, constipation, melena, hematochezia. : No dysuria, frequency, hematuria. Skin: No rash or lesion. Neuro: No mental status changes, headache, focal neurologic complaints. Past Medical History: Diagnosis Date Arthritis Chronic rheumatic arthritis Essential hypertension, benign MD (myocardial infarction) stress MD, 05/2021 Migraine Pulmonary embolism Past Surgical History: Procedure Laterality Date APPENDECTOMY age 10 BUNIONECTOMY Bilateral TONSILLECTOMY Social History Socioeconomic History Marital status: Spouse name: Not on file Number of children: Not on file Years of education: Not on file Highest education level: Not on file Occupational History Not on file Tobacco Use Smoking status: Former Types: Cigarettes Passive exposure: Past Smokeless tobacco: Never Tobacco comments: Quit 20+ yrs ago Vaping Use Vaping Use: Never used Substance and Sexual Activity Alcohol use: Never Drug use: Never Sexual activity: Not on file Other Topics Concern Not on file Social History Narrative Not on file Social Determinants of Health Financial Resource Strain: Not on file Food Insecurity: Not on file Transportation Needs: Not on file Physical Activity: Not on file Stress: Not on file Social Connections: Not on file Intimate Partner Violence: Not on file Housing Stability: Not on file Allergies Allergen Reactions Etodolac Diarrhea Diclofenac Diarrhea Diphenoxylate-Atropine Diarrhea Objective: Blood pressure 112/66, pulse 61, temperature 97 F (36.1 C), resp. rate 12, height 1.524 m (5'), weight 61.2 kg (135 lb), SpO2 98 %. Results for orders placed or performed during the hospital encounter of 06/18/22 XR HIP RIGHT 1 VIEW Result Value Ref Range BSA 1.58 m2 HEMOGLOBIN & HEMATOCRIT Result Value Ref Range HEMOGLOBIN (HGB) 11.2 (L) 12.0 - 16.0 G/DL HEMATOCRIT (HCT) 33.9 (L) 36.0 - 48.0 % GLUCOSE (POC DEVICE) Result Value Ref Range GLUCOSE, POINT OF CARE 125 (H) 70 - 100 MG/DL English Teacher 207,205 REPEAT ABO/RH (D) TYPING Result Value Ref Range ABO/RH(D) A POSITIVE HEENT: NC/AT, PERRLA, EOMI, fundi benign, external ears normal, OP normal. Neck: No LAD/thyromegaly. No JVD/bruit. Lungs: Clear to auscultation bilaterally. No wheezes, rales, ronchi. Heart: RRR. No S3/S4. Abdomen: Soft, NT/ND, normal bowel sounds, no HSM, no bruits. Extremities: No clubbing, cyanosis, edema. Normal pulses. Neurologic: CN II-XII intact. Strength/DTR's/sensation symmetric. Cerebellar function normal. Skin: No rash or suspicious lesions. Musculoskeletal: No edema, redness, warmth, deformities. Psychiatric: Alert and oriented. Affect and mood normal. Assessment and Plan: POD #0 STEPHANIE - pain Rx, therapy, and anticoagulation per ortho. CHF - last EF normal. Monitor clinically. RA - hold Rx. HTN - hold home Rx, monitor BP's, BMP in am. Hypotension - hold Rx for now. GI prophylaxis. 50 minutes total time. Darian Cisneros MD 06/18/2022 [facility] 06-18-2022 Consult note Associated Order (s): IP CONSULT TO GENERAL MEDICINE Medical Consultation Patient is a 67 yo female s/p right STEPHANIE. She was at her baseline state of health prior to surgery. 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 Notable for ECHO most recent EF back to 55%, trace leuk with contaminant on culture, AST 52. She is doing well postoperatively. BP low initially. Better with fluids and Rx. Pain controlled. Has not ambulated or voided. Denies CP, palpitations, SOB, cough, sputum, nausea, vtg, edema. Known CHF. Takotsubo cardiomyopathy. Most recent EF normal. Known RA - controlled. H/O PE. Known high blood pressure. she is feeling well. There are no complaints relative to her blood pressure. Ambulatory blood pressures are normal. Patient is compliant with medications. she denies any side effects from medications. she denies chest pain, SOB, HIGGINBOTHAM, palpitations, orthopnea, PND, edema, headache, focal neurologic complaints, claudication. General: No fever, chills, weight loss. HEENT: No sinus pain, ear pain, sore throat. Neck: No LAD. Lungs: No cough, sputum, pleuritic pain, hemoptysis, SOB. CV: No chest pain, palpitation, orthopnea, PND, edema. GI: No abd pain, nausea, vomiting, diarrhea, constipation, melena, hematochezia. : No dysuria, frequency, hematuria. Skin: No rash or lesion. Neuro: No mental status changes, headache, focal neurologic complaints. Past Medical History: Diagnosis Date Arthritis Chronic rheumatic arthritis Essential hypertension, benign MD (myocardial infarction) stress MD, 05/2021 Migraine Pulmonary embolism Past Surgical History: Procedure Laterality Date APPENDECTOMY age 10 BUNIONECTOMY Bilateral TONSILLECTOMY Social History Socioeconomic History Marital status: Spouse name: Not on file Number of children: Not on file Years of education: Not on file Highest education level: Not on file Occupational History Not on file Tobacco Use Smoking status: Former Types: Cigarettes Passive exposure: Past Smokeless tobacco: Never Tobacco comments: Quit 20+ yrs ago Vaping Use Vaping Use: Never used Substance and Sexual Activity Alcohol use: Never Drug use: Never Sexual activity: Not on file Other Topics Concern Not on file Social History Narrative Not on file Social Determinants of Health Financial Resource Strain: Not on file Food Insecurity: Not on file Transportation Needs: Not on file Physical Activity: Not on file Stress: Not on file Social Connections: Not on file Intimate Partner Violence: Not on file Housing Stability: Not on file Allergies Allergen Reactions Etodolac Diarrhea Diclofenac Diarrhea Diphenoxylate-Atropine Diarrhea Objective: Blood pressure 112/66, pulse 61, temperature 97 F (36.1 C), resp. rate 12, height 1.524 m (5'), weight 61.2 kg (135 lb), SpO2 98 %. Results for orders placed or performed during the hospital encounter of 06/18/22 XR HIP RIGHT 1 VIEW Result Value Ref Range BSA 1.58 m2 HEMOGLOBIN & HEMATOCRIT Result Value Ref Range HEMOGLOBIN (HGB) 11.2 (L) 12.0 - 16.0 G/DL HEMATOCRIT (HCT) 33.9 (L) 36.0 - 48.0 % GLUCOSE (POC DEVICE) Result Value Ref Range GLUCOSE, POINT OF CARE 125 (H) 70 - 100 MG/DL English Teacher 207,205 REPEAT ABO/RH (D) TYPING Result Value Ref Range ABO/RH(D) A POSITIVE HEENT: NC/AT, PERRLA, EOMI, fundi benign, external ears normal, OP normal. Neck: No LAD/thyromegaly. No JVD/bruit. Lungs: Clear to auscultation bilaterally. No wheezes, rales, ronchi. Heart: RRR. No S3/S4. Abdomen: Soft, NT/ND, normal bowel sounds, no HSM, no bruits. Extremities: No clubbing, cyanosis, edema. Normal pulses. Neurologic: CN II-XII intact. Strength/DTR's/sensation symmetric. Cerebellar function normal. Skin: No rash or suspicious lesions. Musculoskeletal: No edema, redness, warmth, deformities. Psychiatric: Alert and oriented. Affect and mood normal. Assessment and Plan: POD #0 STEPHANIE - pain Rx, therapy, and anticoagulation per ortho. CHF - last EF normal. Monitor clinically. RA - hold Rx. HTN - hold home Rx, monitor BP's, BMP in am. Hypotension - hold Rx for now. GI prophylaxis. 50 minutes total time. Darian Cisneros MD 06/18/2022 documented in this encounter [facility] 06-18-2022 Note Formatting of this n ote is different from the original. DATE OF PROCEDURE: 06/18/2022 ATTENDING PHYSICIAN: Bradford Hussein M.D. CHANNEL OPENER: Ghanshyam Dye CNP. PREOPERATIVE DIAGNOSES: 1. Severe right hip osteoarthritis. 2. Abductor tear right hip. POSTOPERATIVE DIAGNOSES: 1. Severe right hip osteoarthritis. 2. Abductor tear right hip. PROCEDURES PERFORMED: 1. Anterolateral right total hip arthroplasty. 2. Periarticular injection right hip. 3. Interpretation of intraoperative x-ray right hip. ANESTHESIA: General. ANESTHESIOLOGIST: Per record. ESTIMATED BLOOD LOSS: 125 mL. COMPLICATIONS: None. INTRAVENOUS FLUIDS: Adequate. SPECIMENS: Bone. INSTRUMENTATION USED: DePuy [place] 50 mm cup with a 32 mm neutral liner, DePuy Actis size 5 high-offset hip stem, and a Biolox delta ceramic head +5/32 diameter, 12/14 taper. INDICATIONS: Heidi is an established patient of mine. She is a very pleasant, 67-year-old female with a history of severe right hip pain and has been diagnosed with osteoarthritis. She has failed conservative management and was given the options of treatment and elected to proceed forward with operative intervention. For that reason then, the patient was scheduled for the procedure for which patient appears today. Upon arrival to the preoperative unit, the risks, benefits and alternatives were thoroughly explained, informed consent was verified, and the surgical site was marked. After evaluation by Anesthesia and administration of the preoperative antibiotics, the patient was then brought to the operating room. DESCRIPTION OF THE PROCEDURE: Upon arrival to the operating room, the patient was placed supine on the operating room table and general anesthetic was induced. The patient was repositioned in a lateral decubitus position on the pegboard and all bony prominences were well padded. An axillary roll was placed. The operative region was then prepped and draped in a sterile standard fashion. A proper timeout was then performed. I began with a direct lateral incision and came down through the skin and the subcutaneous fat to the IT band. A Hanna elevator was used to develop a small plane over this. The IT band was then split in line with the original incision and an anterolateral approach to the hip was performed, taking off and tagging the anterior one-quarter of the abductor, which was then retracted anteriorly throughout the duration of the case. I then compared the operative leg to the down leg for leg length estimation and placed a suture marker in the skin for comparison to a ananth on the proximal lateral femur for additional leg length estimation. With progressive dissection across the proximal medial femur, I was able to atraumatically produce the femoral head and neck into the wound. This demonstrated severe endstage arthritis. Next, I proceeded to identify the superior aspect of the lesser trochanter. I marked my neck cut in accordance with my preoperative template, and a femoral head and neck osteotomy was performed. Following removal of the femoral head, the femur was translated posteriorly and exposure was gained about the acetabulum with two Zelpis and a cerebellar retractor. After adequate exposure was achieved a complete labrectomy was performed. I started off with a size 46 reamer and reamed up to a size 49 mm reamer. In doing so, I reamed to my templated planned position. I then impacted a 50 mm shell at approximately 40 degrees of abduction and 10-15 degrees of anteversion, which was in line with the natural acetabular anteversion and the transverse acetabular ligament. The cup was fully seated as visualized through the screw holes, had adequate bony coverage and was stable to manual stress. Rim osteophytes were safely removed. Following this, the wound was thoroughly irrigated and the final liner was impacted into the shell. It was free of soft tissue entrapment and verified to be secure. I then turned my attention to the proximal femur. With the proximal femur now re-exposed, I started off with a box osteotome and used a curved rasp to access the canal and verify correct placement. I then used a starting broach and increased up to a size 5 high-offset broach, which resulted in excellent coverage and fit. I placed this at approximately 10 degrees of anteversion in line with the posterior femoral cortical neck. I was overall satisfied with the metaphyseal stability of this construct and, at this point, I started off trialing head and neck options according to my preoperative template. The leg was reduced. Function and stability was assessed. There was excellent stability to full extension and external rotation to 90 degrees in both abduction and adduction. There was no impingement and no instability. There was full flexion and at 90 degrees of flexion. There was approximately 80 degrees of internal rotation without any evidence of impingement or instability. I was satisfied with the performance of the hip. There was appropriate pull of the abductors laterally and length and shoulder height, which matched that of my template. An intraoperative radiograph was taken, which confirmed position of the trials, as well as appropriate leg length and offset. Thus, at this point, the hip was re-dislocated. The trials were removed and the final implant was impacted down to a similar place as the trial. I retrialed the hip with a +5 neck option as I felt this best optimized length, offset, stability, and motion. The final head/neck combination was impacted onto a clean and dry Her taper, and this was verified to be secure. The hip was then reduced. The wound was soaked with a Betadine soak saline solution followed by gentle lavage. The periarticular injection was administered. Hemostasis was obtained and the wound was closed over 1 gram of vancomycin powder with 0-Vicryl in a figure-of-8 interrupted fashion starting with the gluteus minimus and the hip capsule. The gluteus medius was then closed with additional 0-Vicryl, and then over sewn with a #2 Quill. The construct was stressed without evidence of gapping and was otherwise stable and well reduced. The IT band was closed with a #2 Quill followed by #0 Quill for the subcutaneous fatty layer. The skin was closed with Dermabond. The extremity was cleansed and a sterile dressing was applied. The patient was then awoken from anesthetic, extubated and taken to postoperative care unit in stable condition. During exposure of the abductors, there was some partial thickness abductor tearing directly over the tip of the greater trochanter. This particular tear pattern was probably only 30%-40% of the fibers. It was anterior-inferior based. I incorporated it into my normal approach and, at the end of the operation, it repaired nicely back down without the need for any additional suture anchor-based repair. Furthermore, the patient s templated to a size 6 standard hip stem, but a 5 was full fit and fill given the offset difference at that I opted to increase to a size 5 high-offset, and as the stem was further seated, a +5 to gain adequate length. Overall, the hip maintained excellent stability at the end of the operation. POSTOPERATIVE PLAN OF CARE: 1. Touchdown weightbearing for 3 weeks, then partial weightbearing for 3 weeks, anterolateral hip precautions, no active abduction for 6 weeks. 2. Antibiotics 24 hours postop. 3. DVT prophylaxis, both mechanical and chemical. 4. Follow up in the office in 2-3 weeks. ATTENDING/ASSISTING PARTICIPATION: This operation could not have been safely performed (without compromising the technical results or length of the procedure) without the assistance of a skilled surgical manager. A surgical manager was medically necessary for positioning, retraction and instrumentation. [email or web address] Work Phone: 06-18-2022 Nurse Note Patient transferred to [address] via cart in stable condition. Report given to AARTI López. Cart left in locked and lowest position with side rails up x2. Snack and call light given to patient. Monitors and alarms on and attached to patient. Dr. Hussein and Rj PRECISION INSTRUMENT MAKER AND REPAIRER at bedside at this time assessing pt. And right hip dressing. Dressing clean dry and intact Dr. Hussein verbalized right hip looks fine new orders received at this time for an H&H.. Left message with Dr Cisneros no change in blood pressure after medication given. Dr Cisneros returned call new orders received. Patient voided on bedpan 350 ml. New orders received from Dr Cisneros. Dr Gleason notified and a voicemail left for provider to return call in regards to patient blood pressure being low. Patient is drowsy but oriented person, place and situation. Godwin Cox PRECISION INSTRUMENT MAKER AND REPAIRER notified in regards to patient blood pressure. New orders receive to contact Dr Gleason. Patient's blood pressure is still low Ogdwin PRECISION INSTRUMENT MAKER AND REPAIRER gave more phenylephrine. Patient has a decrease in blood pressure Godwin PRECISION INSTRUMENT MAKER AND REPAIRER @ the bedside phenylephrine given. documented in this encounter [facility] 06-18-2022 Nurse Surgical operation note Patient transferred to [place] [address] via cart in stable condition. Report given to AARTI López. Cart left in locked and lowest position with side rails up x2. Snack and call light given to patient. Monitors and alarms on and attached to patient. [facility] 06-18-2022 Nurse Surgical operation note Dr. Hussein and Rj PRECISION INSTRUMENT MAKER AND REPAIRER at bedside at this time assessing pt. And right hip dressing. Dressing clean dry and intact Dr. Hussein verbalized right hip looks fine new orders received at this time for an H&H.. [facility] 06-18-2022 Nurse Surgical operation note Left message with Dr Cisneros no change in blood pressure after medication given. [facility] 06-18-2022 Nurse Surgical operation note Dr Cisneros returned call new orders received. [facility] 06-18-2022 Nurse Surgical operation note Patient voided on bedpan 350 ml. [facility] 06-18-2022 Nurse Surgical operation note New orders received from Dr Cisneros. [facility] 06-18-2022 Nurse Surgical operation note Dr Gleason notified and a voicemail left for provider to return call in regards to patient blood pressure being low. Patient is drowsy but oriented person, place and situation. [facility] 06-18-2022 Nurse Surgical operation note Godwin Cox CRNA notified in regards to patient blood pressure. New orders receive to contact Dr Gleason. [facility] 06-18-2022 Nurse Surgical operation note Patient's blood pressure is still low Godwin PRECISION INSTRUMENT MAKER AND REPAIRER gave more phenylephrine. [facility] 06-18-2022 Nurse Surgical operation note Patient has a decrease in blood pressure Godwin PRECISION INSTRUMENT MAKER AND REPAIRER @ the bedside phenylephrine given. [facility] 06-18-2022 Note Formatting of this n ote is different from the original. POST OPERATIVE/PROCEDURE NOTE Heidi Mcintosh 67 y.o. female [id number] SURGEON Surgeon(s) and Role: * Bradford Hussein MD - Primary CHANNEL OPENER Ghanshyam Dye APRN-RAGS LABORER ANESTHESIOLOGIST PRECISION INSTRUMENT MAKER AND REPAIRER: Kodi Cox APRN-PRECISION INSTRUMENT MAKER AND REPAIRER SURGICAL STAFF Supervisor Phosphoric Acid: Shama Tong RN; Virginia Willoughby RN; Jailyn Georges RN Nurse Practitioner: IZZY Calhoun Scrub Person: Edgardo Allen RN Experimental Welder: Osvaldo Shane LPN PROCEDURE PERFORMED Procedure(s) (LRB): ARTHROPLASTY HIP TOTAL AL +/- Abductor - Right *Ensure surgery* (Right) r hip periarticular injection intraop interpretation of xrau PRIMARY CLOSURE yes ANESTHESIA (type of) General ESTIMATED BLOOD LOSS 125 DRAINS none BLOOD PRODUCTS None PRE OPERATIVE DIAGNOSIS Primary osteoarthritis of right hip [M16.11] POST OPERATIVE DIAGNOSIS Primary osteoarthritis of right hip [M16.11] FINDINGS Severe oa hip CONDITION OF PATIENT Stable COMPLICATION No complications GRAFTS AND/OR IMPLANTS Implant Name Type Inv. Item Serial No. Occupational Nurse Lot No. LRB No. Used Action [place] Gripton Acetabular Shell Sector [id number] Right 1 Implanted [place] Altrx Polyethlene Acetabular Liner Neutral [id number] Right 1 Implanted Femoral Stem 12 Taper Actis Duofix Hip Prosthesis Cementless [id number] Right 1 Implanted Biolox Delta Ceramic Femoral Head +5.0 [id number] Right 1 Implanted SPECIMENS ID Type Source Tests Collected by Time Destination 1 : Right Femoral Head Permanent TISSUE SURGICAL PATHOLOGY REQUEST Bradford Hussein MD 06/18/2022 [id number] IZZY Calhoun June 18, 2022 10:06 AM [facility] 05-20-2022 Note Formatting of this n ote is different from the original. 05/20/22 0955 Information Source Information Source patient Contact Information Squeak Rattle And Leak Repairer Name Claudia Gray RN Case Manager's Living Environment Lives With spouse Living Arrangements house (Two story home, main floor living, 12 steps to enter home) Provides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 For no one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 Provided By self Support System Immediate family Able to Return to Prior Arrangements yes Employment/Financial Employed? Retired Cognitive/Perceptual/Developmenta l Current Mental Status/Cognitive Functioning no deficits noted Recent Changes in Mental Status/Cognitive Functioning no changes Developmental Stage Stage 8 (65 years-/Late Adulthood) Integrity vs. Despair Emotional/Psychological Affect no deficits noted Mood congruent to situation Verbal Skills no deficits noted Current Interpersonal Conduct/Behavior appropriate to situation Mental Health Conditions/Symptoms none;denies Thought Process Alterations no deficits noted Referral Information Referral Source physician MORENO met with patient this date to discuss post-surgical discharge plans. Patient states that she plans to return home with her spouse and no needs for her hip. Patient has a wheeled walker, instructed to bring with her on the day of surgery. She also has a cane, bathroom grab bars and high rise toilet. Patient denies any other questions or needs at this time. CM to continue to follow and assist with discharge plans. [facility] 04-10-2022 History of Present illness Narrative Ortho Nurse - Patient Intake Room#: 3--Visit today to evaluate right hip. Her pain today is a 6. Her she has had hip pain for over 7 months. Her pain started a walk program for exercise. She had injections for bursitis and tendonitis. These did not help so she saw Dr. Alarcon. He gave right groin injection and this did not help. She did have a MRI done 01-07-22. Date: 04/10/2022 3:02 PM Patient: Heidi Mcintosh MR#: [id number] : 1955 Age: 67 y.o. Referring Physician: Michaela Alarcon MD Insurance: Payor: MEDICARE / Plan: MEDICARE A AND B / Product Type: *No Product type* / Chief Complaint Patient presents with Right Hip - Pain Visit Vitals Temp 96.8 F (36 C) (Temporal) Ht 1.525 m (5' 0.05 ) Wt 61.8 kg (136 lb 3.2 oz) BMI 26.56 kg/m Pain Presence of Pain: complains of pain/discomfort Pain Location: hip, right Select Pain Scale: DVPRS (Defense and Veterans Pain Rating Scale) (Adult-Cognitively Intact) Pain Location: hip, right Select Pain Scale: DVPRS (Defense and Veterans Pain Rating Scale) (Adult-Cognitively Intact) Recent Labs No results found for: CRP No results found for: SEDRATE No results found for: WBC, WBCCOUNT, WBCFETAL, HGB, HCT, PLATELET, MCV History Past Medical History: Diagnosis Date Arthritis MD (myocardial infarction) Migraine Pulmonary embolism Past Surgical History: Procedure Laterality Date APPENDECTOMY age 10 Family History: Her family history is not on file. Social History: Her reports that she has quit smoking. Her smoking use included cigarettes. She has been exposed to tobacco smoke. She has never used smokeless tobacco. She reports that she does not drink alcohol and does not use drugs. Additional Social History Y N Notes Do you live alone? [] [x] Who lives with you: Do you have children? [x] [] How many: 4 Do you currently work? [] [x] What type of work do you do: Do you have stairs in the home? [x] [] How many do you have to climb to enter your home: 12 What services do you currently receive at home? [] [x] Name: Do you have transportation to go to outpatient therapy if needed? [x] [] What Equipment do you have at home? [x] [] [x]Walker, []Crutches, []Commode Chair, []Shower []Chair, [x]cane, []bracing Are you followed by a supervisor electronics assembly? [x] [] Name: Dr. Horn--Vinh Are you followed by pain management? [x] [] Name: Dr. Alarcon Are you followed by any other specialists? [] [x] Name: Outpatient Medications Prior to Visit Medication Sig Dispense Refill alendronate 70 MG tablet Take 1 tablet by mouth every 7 days. alendronate 70 mg tablet TAKE 1 TABLET BY MOUTH EVERY 7 DAYS WITH A FULL GLASS OF WATER ON AN EMPTY STOMACH. REMAIN UPRIGHT AND DO NOT EAT FOR NEXT 30 MINUTES amitriptyline 100 MG tablet Take 1 tablet by mouth at bedtime. calcium carbonate 1250 (500 Ca) MG tablet Take 1,250 mg by mouth 2 times daily with meals. Dextromethorphan-Guaifenesin 60-1200 MG Tab SR 12 HR tablet Take 1 Dose by mouth every 12 hours as needed. divalproex [address] Take 500 mg by mouth daily. Etanercept (Enbrel) 50 MG/ML Solution Prefilled Syringe injection Inject 50 mg under the skin daily. folic acid 1 MG tablet Take 1 tablet by mouth daily. folic acid 1 mg tablet TAKE 1 TABLET BY MOUTH ONCE DAILY EXCEPT ON THE DAY METHOTREXATE IS TAKEN. hydroxychloroquine 200 MG tablet Take 400 mg by mouth daily. Take 2 tablets by mouth once daily methotrexate 2.5 MG tablet Take 4 tablets by mouth every 7 days. Misc Natural Products (GLUCOSAMINE CHONDROITIN ADV PO) Take by mouth daily. Multiple Vitamin (Multi-Vitamin) tablet Take 1 tablet by mouth daily. Polyethylene Glycol 3350 (MIRALAX PO) Take by mouth daily. pregabalin (Lyrica) 25 MG capsule Take 1 capsule by mouth 2 times daily. 60 capsule 1 propranolol 20 MG tablet Take 3 tablets by mouth daily. TAKE 1 TABLET BY MOUTH IN THE MORNING AND 2 TABLETS IN THE EVENING Specialty Vitamins Products (magnesium, amino acid chelate,) 133 MG tablet Take by mouth. amitriptyline 100 MG tablet Take 100 mg by mouth daily. (Patient not taking: No sig reported) celecoxib 200 MG capsule Take 1 capsule by mouth 2 times daily as needed for Mild Pain. 60 capsule 1 diphenhydrAMINE 25 MG capsule Take 25 mg by mouth Every 6 hours as needed for Itching. (Patient not taking: No sig reported) diphenhydramine 25 MG tablet Take 25 mg by mouth Every 6 hours as needed. (Patient not taking: No sig reported) DULoxetine [address] Particles capsule DR Take 30 mg by mouth daily. (Patient not taking: No sig reported) hydroxychloroquine 200 MG tablet Take 200 mg by mouth daily. (Patient not taking: Reported on 03/21/2022) losartan 25 MG tablet Take 25 mg by mouth daily. (Patient not taking: No sig reported) losartan 25 MG tablet Take 1 tablet by mouth daily. (Patient not taking: No sig reported) Magnesium Oxide (MAG-200 PO) Take 1 tablet by mouth 2 times daily with meals. (Patient not taking: Reported on 04/10/2022) metoclopramide 10 MG tablet Take 1 Dose by mouth as needed. (Patient not taking: No sig reported) nitrofurantoin, macrocrystal-monohydrate, 100 MG capsule Take 1 capsule by mouth 2 times daily. (Patient not taking: No sig reported) Qulipta 60 MG tablet Take 1 tablet by mouth daily. (Patient not taking: No sig reported) Rivaroxaban 20 MG tablet Take 20 mg by mouth at bedtime. (Patient not taking: No sig reported) sertraline 100 MG tablet Take 100 mg by mouth daily. (Patient not taking: No sig reported) tizanidine 2 MG capsule Take 2 mg by mouth 2 times daily. (Patient not taking: No sig reported) No facility-administered medications prior to visit. Allergies: She is allergic to etodolac, diclofenac, and diphenoxylate-atropine. Y N Are you allergic to any metals? [] [x] If yes, what metals: Review of Systems System Y N Symptoms Constitutional [] [x] Weight Loss [] [x] Weight Gain [] [x] Chronic Fever [] [x] Insomnia Eyes [] [x] Resent Vision Change [] [x] Cataracts [] [x] Glaucoma [] [x] Any Hx of Metal Fragments in the Eye ENT [] [x] Loss of hearing [] [x] Hearing Aids [] [x] Seasonal Allergies [] [x] Dental Issues Cardiovascular [] [x] Chest Pain [] [x] Angina [] [x] Stent [] [x] Hypertension [] [x] Heart Murmur [] [x] Irregular Pulse [] [x] Pacemaker [] [x] Palpitations [] [x] High cholesteral Respiratory [] [x] Wheezing [] [x] Shortness of Breath [] [x] Pneumonia [] [x] Bronchitis [] [x] Sleep Apnea [] [x] COPD [] [x] Date/ LOC of last CXR: Gastrointestinal [] [x] Heartburn [] [x] Indigestion [] [x] Constipation [] [x] Ulcer [] [x] GI Stomach Bleed [] [x] Diarrhea [] [x] Colon Cancer [] [x] Acid Reflux [] [x] Blood in Stools Musculoskeletal [x] [] Arthritis [] [x] Muscle Weakness [] [x] Joint Pain [] [x] Back Pain [] [x] Fibromyalgia [] [x] Bone Infection [] [x] Swelling - Multiple Joints [] [x] Reflex Sympathetic Dystrophy Skin [] [x] Chronic Rash [] [x] Ulcers [] [x] Eczema [] [x] Psoriasis [] [x] Skin Cancer [] [x] Melanoma Neurologic [] [x] Numbness [] [x] Weakness or loss of sensation in arms or legs [] [x] Leg Pain / Sciatica [x] [] Headaches [] [x] Loss of bowel or bladder control Psychiatric [] [x] Anxiety [] [x] Claustrophobia [] [x] Other Psychiatric Problems Hematologic [] [x] Easy Bruising [] [x] Easy Bleeding [] [x] Blood Transfusion Date: Endocrine [] [x] Hypothyroid [] [x] Hyperthyroid [] [x] Hot Flashes [] [x] Hormone Replacement [] [x] Prednisone Use Does pt have dentures? no HPI: Patient is here today for evaluation of her right hip pain. She is a new patient for me. She is here today as a referral from Dr. Alarcon. A pleasant 67 y.o. female with a history of progressive decline, physical function and decreased quality of life secondary to the hip pain for the past 7 months. The pain started with a walking exercises program. She presents with a highly complex array of symptoms upon exam today. She is experiencing locking, popping, catching and clicking. She has weakness, pain and instability. She has attempted and failed past trochanteric injections and intraarticular injections with little to no improvement of symptoms. Last IA injection on 03/08/[address] Alarcon. She reports she had MRI on 01/07/22. The pain is 6 on a 10-point scale. 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 PHYSICAL EXAM: This is an alert, oriented, and age-appropriate female. She is in no distress. Pleasant and cooperative. EXTREMITIES: The upper extremities have no gross deformity. Normal stability. 5/5 motor. Intact sensation. Normal coordination. Skin intact. Lower extremities have no gross deformity. Normal stability. 5/5 motor. Intact sensation. Normal coordination. Skin intact. Right hip demonstrates increased pain with rotation and flexion. Slow, steady antalgic gait. Single leg stance with pelvis dropping. Lateral discomfort over the tip of trochanter and IT band tendon. Painful range of motion. Contralateral hip has full and supple motion. No pain. No impingement. No instability. Normal neurovascular status in lower extremities bilaterally. IMAGING: Plain film radiographs were reviewed. There is severe arthritis to right hip, loss of joint space, subchondral sclerosis, osteophyte formation, and [id number] contact. IMPRESSION: 1.) Severe symptomatic end-stage arthritis, right hip. 2.) Suspected abductor muscle tear, right side. 3.) History of PE in Jul, 2021 with unknown etiology. 4.) History of MD. PLAN: We have discussed in great detail the nature of the diagnosis, the natural history and expected progression which is likely worsening pain, instability with risks of falls, and additional joint wear and or bone loss. We have discussed the options for treatment including both conservative and operative treatments. We have discussed the risks, benefits, and alternatives to each treatment. Heidi is interested in surgical management in the form of a right anterolateral total hip replacement with open abductor muscle repair as needed. Heidi understands that the potential benefits are reduced pain, improved stability and improved function. Heidi also understands that the major life or limb threatening risks include, but are not limited to: bleeding, infection, neurovascular injury including foot drop or paralysis, dislocation, component failure, implant loosening, leg length inequality, ligament or tendon disruption, fracture, stiffness, chronic pain, chronic limp, chronic disability, need for further surgery, blood clots in the extremities or lungs, stroke, heart attack, loss of limb, and ultimately loss of life. prison expectations, risks and general implant survivorship were also discussed. Despite these risks, the patient would like to proceed with surgical planning. Today, we will initiate the pre-surgical process including nasal MRSA screening, scheduling an appointment for [facility] and the potential surgical date, and reviewing and signing the consent forms. I have reviewed the findings of my clinical staff below and agree with their assessment. Vitals: 04/10/22 1445 Temp: 96.8 degrees F (36 degrees C) TempSrc: Temporal Weight: 61.8 kg (136 lb 3.2 oz) Height: 1.525 m (5' 0.05 ) Pain Presence of Pain: complains of pain/discomfort Pain Location: hip, right Select Pain Scale: DVPRS (Defense and Veterans Pain Rating Scale) (Adult-Cognitively Intact) Pain Location: hip, right Select Pain Scale: DVPRS (Defense and Veterans Pain Rating Scale) (Adult-Cognitively Intact) Recent Labs No results found for: CRP No results found for: SEDRATE No results found for: WBC, WBCCOUNT, WBCFETAL, HGB, HCT, PLATELET, MCV Past Medical History: Diagnosis Date Arthritis MD (myocardial infarction) Migraine Pulmonary embolism Past Surgical History: Procedure Laterality Date APPENDECTOMY age 10 No family history on file. Social History Socioeconomic History Marital status: Tobacco Use Smoking status: Former Types: Cigarettes Passive exposure: Past Smokeless tobacco: Never Vaping Use Vaping Use: Never used Substance and Sexual Activity Alcohol use: Never Drug use: Never Current Outpatient Medications: alendronate 70 MG tablet, Take 1 tablet by mouth every 7 days. alendronate 70 mg tablet TAKE 1 TABLET BY MOUTH EVERY 7 DAYS WITH A FULL GLASS OF WATER ON AN EMPTY STOMACH. REMAIN UPRIGHT AND DO NOT EAT FOR NEXT 30 MINUTES, Disp: , Rfl: amitriptyline 100 MG tablet, Take 1 tablet by mouth at bedtime., Disp: , Rfl: calcium carbonate 1250 (500 Ca) MG tablet, Take 1,250 mg by mouth 2 times daily with meals., Disp: , Rfl: Dextromethorphan-Guaifenesin 60-1200 MG Tab SR 12 HR tablet, Take 1 Dose by mouth every 12 hours as needed., Disp: , Rfl: divalproex [address], Take 500 mg by mouth daily., Disp: , Rfl: Etanercept (Enbrel) 50 MG/ML Solution Prefilled Syringe injection, Inject 50 mg under the skin daily., Disp: , Rfl: folic acid 1 MG tablet, Take 1 tablet by mouth daily. folic acid 1 mg tablet TAKE 1 TABLET BY MOUTH ONCE DAILY EXCEPT ON THE DAY METHOTREXATE IS TAKEN., Disp: , Rfl: hydroxychloroquine 200 MG tablet, Take 400 mg by mouth daily. Take 2 tablets by mouth once daily, Disp: , Rfl: methotrexate 2.5 MG tablet, Take 4 tablets by mouth every 7 days., Disp: , Rfl: Misc Natural Products (GLUCOSAMINE CHONDROITIN ADV PO), Take by mouth daily., Disp: , Rfl: Multiple Vitamin (Multi-Vitamin) tablet, Take 1 tablet by mouth daily., Disp: , Rfl: Polyethylene Glycol 3350 (MIRALAX PO), Take by mouth daily., Disp: , Rfl: pregabalin (Lyrica) 25 MG capsule, Take 1 capsule by mouth 2 times daily., Disp: 60 capsule, Rfl: 1 propranolol 20 MG tablet, Take 3 tablets by mouth daily. TAKE 1 TABLET BY MOUTH IN THE MORNING AND 2 TABLETS IN THE EVENING, Disp: , Rfl: Specialty Vitamins Products (magnesium, amino acid chelate,) 133 MG tablet, Take by mouth., Disp: , Rfl: amitriptyline 100 MG tablet, Take 100 mg by mouth daily. (Patient not taking: No sig reported), Disp: , Rfl: celecoxib 200 MG capsule, Take 1 capsule by mouth 2 times daily as needed for Mild Pain., Disp: 60 capsule, Rfl: 1 diphenhydrAMINE 25 MG capsule, Take 25 mg by mouth Every 6 hours as needed for Itching. (Patient not taking: No sig reported), Disp: , Rfl: diphenhydramine 25 MG tablet, Take 25 mg by mouth Every 6 hours as needed. (Patient not taking: No sig reported), Disp: , Rfl: DULoxetine [address] Particles capsule DR, Take 30 mg by mouth daily. (Patient not taking: No sig reported), Disp: , Rfl: hydroxychloroquine 200 MG tablet, Take 200 mg by mouth daily. (Patient not taking: Reported on 03/21/2022), Disp: , Rfl: losartan 25 MG tablet, Take 25 mg by mouth daily. (Patient not taking: No sig reported), Disp: , Rfl: losartan 25 MG tablet, Take 1 tablet by mouth daily. (Patient not taking: No sig reported), Disp: , Rfl: Magnesium Oxide (MAG-200 PO), Take 1 tablet by mouth 2 times daily with meals. (Patient not taking: Reported on 04/10/2022), Disp: , Rfl: metoclopramide 10 MG tablet, Take 1 Dose by mouth as needed. (Patient not taking: No sig reported), Disp: , Rfl: nitrofurantoin, macrocrystal-monohydrate, 100 MG capsule, Take 1 capsule by mouth 2 times daily. (Patient not taking: No sig reported), Disp: , Rfl: Qulipta 60 MG tablet, Take 1 tablet by mouth daily. (Patient not taking: No sig reported), Disp: , Rfl: Rivaroxaban 20 MG tablet, Take 20 mg by mouth at bedtime. (Patient not taking: No sig reported), Disp: , Rfl: sertraline 100 MG tablet, Take 100 mg by mouth daily. (Patient not taking: No sig reported), Disp: , Rfl: tizanidine 2 MG capsule, Take 2 mg by mouth 2 times daily. (Patient not taking: No sig reported), Disp: , Rfl: Allergies Allergen Reactions Etodolac Diarrhea Diclofenac Diarrhea Diphenoxylate-Atropine Diarrhea documented in this encounter [facility] 03-21-2022 History of Present illness Narrative HPI: Heidi Mcintosh Presents for evaluation and treatment of right hip pain. Pain is described as Aching, Throbbing and Stabbing and is rated 6/10. Pain is increased with standing and walking and is relieved by ice. The patient denies numbness/tingling she denies weakness . The patient denies bowel/bladder incontinence. The patient responded with relief Minimal relief to the most recent procedure right hip injection on 03/08/22. Patient denies tobacco use. Audit-C Questionnaire 1. How often do you have a drink containing alcohol? (0) never 2. How many standard drinks containing alcohol do you have on a typical day? (0) 1 or 2 3. How often do you have six or more drinks on one occasion? (0) never *A score of 3 or more in women or 4 or more in men is a positive score that requires education. Current Outpatient Medications Medication Sig alendronate 70 MG tablet Take 1 tablet by mouth every 7 days. alendronate 70 mg tablet TAKE 1 TABLET BY MOUTH EVERY 7 DAYS WITH A FULL GLASS OF WATER ON AN EMPTY STOMACH. REMAIN UPRIGHT AND DO NOT EAT FOR NEXT 30 MINUTES amitriptyline 100 MG tablet Take 1 tablet by mouth at bedtime. amitriptyline 100 MG tablet Take 100 mg by mouth daily. calcium carbonate 1250 (500 Ca) MG tablet Take 1,250 mg by mouth 2 times daily with meals. celecoxib 200 MG capsule Take 1 capsule by mouth 2 times daily as needed for Mild Pain. Dextromethorphan-Guaifenesin 60-1200 MG Tab SR 12 HR tablet Take 1 Dose by mouth every 12 hours as needed. diphenhydrAMINE 25 MG capsule Take 25 mg by mouth Every 6 hours as needed for Itching. diphenhydramine 25 MG tablet Take 25 mg by mouth Every 6 hours as needed. divalproex [address] Take 500 mg by mouth daily. DULoxetine [address] Particles capsule DR Take 30 mg by mouth daily. Etanercept (Enbrel) 50 MG/ML Solution Prefilled Syringe injection Inject 50 mg under the skin daily. folic acid 1 MG tablet Take 1 tablet by mouth daily. folic acid 1 mg tablet TAKE 1 TABLET BY MOUTH ONCE DAILY EXCEPT ON THE DAY METHOTREXATE IS TAKEN. hydroxychloroquine 200 MG tablet Take 400 mg by mouth daily. Take 2 tablets by mouth once daily hydroxychloroquine 200 MG tablet Take 200 mg by mouth daily. losartan 25 MG tablet Take 25 mg by mouth daily. (Patient not taking: Reported on 03/08/2022) losartan 25 MG tablet Take 1 tablet by mouth daily. (Patient not taking: Reported on 03/08/2022) Magnesium Oxide (MAG-200 PO) Take 1 tablet by mouth 2 times daily with meals. methotrexate 2.5 MG tablet Take 4 tablets by mouth every 7 days. metoclopramide 10 MG tablet Take 1 Dose by mouth as needed. Multiple Vitamin (Multi-Vitamin) tablet Take 1 tablet by mouth daily. nitrofurantoin, macrocrystal-monohydrate, 100 MG capsule Take 1 capsule by mouth 2 times daily. (Patient not taking: Reported on 03/08/2022) propranolol 20 MG tablet Take 3 tablets by mouth daily. TAKE 1 TABLET BY MOUTH IN THE MORNING AND 2 TABLETS IN THE EVENING Qulipta 60 MG tablet Take 1 tablet by mouth daily. (Patient not taking: Reported on 03/08/2022) Rivaroxaban 20 MG tablet Take 20 mg by mouth at bedtime. (Patient not taking: Reported on 03/08/2022) sertraline 100 MG tablet Take 100 mg by mouth daily. (Patient not taking: Reported on 03/08/2022) Specialty Vitamins Products (magnesium, amino acid chelate,) 133 MG tablet Take by mouth. tizanidine 2 MG capsule Take 2 mg by mouth 2 times daily. (Patient not taking: Reported on 03/08/2022) Review of Systems: General: Denies fevers, chills, or night sweats Abdominal: Denies nausea, vomiting, diarrhea Respiratory: Denies cough, sputum production Genitourinary: Denies dysuria or frequency HPI: Heidi Mcintosh Presents for evaluation and treatment of right hip pain. Pain is described as Aching, Throbbing and Stabbing and is rated 6/10. Pain is increased with standing and walking and is relieved by ice. The patient denies numbness/tingling she denies weakness . The patient denies bowel/bladder incontinence. The patient responded with relief Minimal relief to the most recent procedure right hip injection on 03/08/22. Patient denies tobacco use. Audit-C Questionnaire 1. How often do you have a drink containing alcohol? (0) never 2. How many standard drinks containing alcohol do you have on a typical day? (0) 1 or 2 3. How often do you have six or more drinks on one occasion? (0) never *A score of 3 or more in women or 4 or more in men is a positive score that requires education. Current Outpatient Medications Medication Sig alendronate 70 MG tablet Take 1 tablet by mouth every 7 days. alendronate 70 mg tablet TAKE 1 TABLET BY MOUTH EVERY 7 DAYS WITH A FULL GLASS OF WATER ON AN EMPTY STOMACH. REMAIN UPRIGHT AND DO NOT EAT FOR NEXT 30 MINUTES amitriptyline 100 MG tablet Take 1 tablet by mouth at bedtime. amitriptyline 100 MG tablet Take 100 mg by mouth daily. calcium carbonate 1250 (500 Ca) MG tablet Take 1,250 mg by mouth 2 times daily with meals. celecoxib 200 MG capsule Take 1 capsule by mouth 2 times daily as needed for Mild Pain. Dextromethorphan-Guaifenesin 60-1200 MG Tab SR 12 HR tablet Take 1 Dose by mouth every 12 hours as needed. diphenhydrAMINE 25 MG capsule Take 25 mg by mouth Every 6 hours as needed for Itching. diphenhydramine 25 MG tablet Take 25 mg by mouth Every 6 hours as needed. divalproex [address] Take 500 mg by mouth daily. DULoxetine [address] Particles capsule DR Take 30 mg by mouth daily. Etanercept (Enbrel) 50 MG/ML Solution Prefilled Syringe injection Inject 50 mg under the skin daily. folic acid 1 MG tablet Take 1 tablet by mouth daily. folic acid 1 mg tablet TAKE 1 TABLET BY MOUTH ONCE DAILY EXCEPT ON THE DAY METHOTREXATE IS TAKEN. hydroxychloroquine 200 MG tablet Take 400 mg by mouth daily. Take 2 tablets by mouth once daily hydroxychloroquine 200 MG tablet Take 200 mg by mouth daily. losartan 25 MG tablet Take 25 mg by mouth daily. (Patient not taking: Reported on 03/08/2022) losartan 25 MG tablet Take 1 tablet by mouth daily. (Patient not taking: Reported on 03/08/2022) Magnesium Oxide (MAG-200 PO) Take 1 tablet by mouth 2 times daily with meals. methotrexate 2.5 MG tablet Take 4 tablets by mouth every 7 days. metoclopramide 10 MG tablet Take 1 Dose by mouth as needed. Multiple Vitamin (Multi-Vitamin) tablet Take 1 tablet by mouth daily. nitrofurantoin, macrocrystal-monohydrate, 100 MG capsule Take 1 capsule by mouth 2 times daily. (Patient not taking: Reported on 03/08/2022) propranolol 20 MG tablet Take 3 tablets by mouth daily. TAKE 1 TABLET BY MOUTH IN THE MORNING AND 2 TABLETS IN THE EVENING Qulipta 60 MG tablet Take 1 tablet by mouth daily. (Patient not taking: Reported on 03/08/2022) Rivaroxaban 20 MG tablet Take 20 mg by mouth at bedtime. (Patient not taking: Reported on 03/08/2022) sertraline 100 MG tablet Take 100 mg by mouth daily. (Patient not taking: Reported on 03/08/2022) Specialty Vitamins Products (magnesium, amino acid chelate,) 133 MG tablet Take by mouth. tizanidine 2 MG capsule Take 2 mg by mouth 2 times daily. (Patient not taking: Reported on 03/08/2022) Review of Systems: General: Denies fevers, chills, or night sweats Abdominal: Denies nausea, vomiting, diarrhea Respiratory: Denies cough, sputum production Genitourinary: Denies dysuria or frequency Physical Examination: Vitals: 03/21/22 1017 BP: 156/86 Pulse: 66 Resp: 18 Constitutional The patient is awake, alert, well developed, well nourished and well groomed. The patient is pleasant and cooperative. The patient is a good historian and is very helpful with the history and physical examination. No lesions noted on face. Neurologic Cranial Nerves 2-12 are grossly intact. The deep tendon reflexes of the in bilateral lower extremities are symmetrical;. Plantar reflexes (Babinski): toes are downgoing. Cerebellar function is normal; Romberg's test is negative. The gait is abnormal. Sensory testing for pain (pinprick), light touch, and proprioception is intact in bilateral lower extremities. No ankle or wrist clonus present. Negative Patrick's sign. Motor in bilateral lower extremities is 5/5. Psychiatric The patient is oriented to person, place, and time. Speech is fluent and words are clear. Thought processes are coherent, insight is good. There are no obsessive, compulsive, phobic or delusional thoughts; there are no illusions or hallucinations. The patient's fund of knowledge: awareness of current events and past history is appropriate for age. The patient's higher cognitive functions are intact. The patient's mood is neutral and the affect appropriate; there are no loose associations. MSK The patient has moderate difficulty transitioning from sitting to standing. The patient has a(n) antalgic gait. The cervical spine demonstrates a flexion biased curve. There is no deformity to the cervical spine. There is no abnormality in muscle tone in the cervical spine. There is limitation with range of motion in the cervical spine. Extension, rotation, and lateral bending are moderate limited. Tender to palpation over PSIS on right and FADIR, internal rotation, and external rotation were positive in RLE. . cervical facet loading is positive bilaterally. Assessment: ICD-10-CM 1. Primary osteoarthritis of right hip M16.11 2. Chronic right hip pain M25.551 G89.29 3. Cervical spondylosis without myelopathy M47.812 4. Migraine without status migrainosus, not intractable, unspecified migraine type G43.909 5. Rheumatoid arthritis, involving unspecified site, unspecified whether rheumatoid factor present M06.9 67 y.o. female w/PMHx of migraine headaches, RA, takusubos, DVT who presents for evaluation of right hip pain Injections: Dr. Ewing performed Meds: on methotrexate, topical diclofenac gel, no longer on blood thinners, on depakote for headaches. Tried gabapentin in the past without benefit. Celebrex not helpful, have discussed risks of medication overuse headaches with opioids and NSAIDs Imaging: MRI right hip 2021 shows severe OA with joint effusion (note this is only mild on xray), MRI cervical spine shows degenerative facet arthropathy at C3-4, C4-5 with mild canal stenosis from C4-C7, there is severe foraminal stenosis from C4-C7. Knee xrays 2021 show mild medial knee OA L>R. Referrals/consults: Dr. Igoe rheumatology PT: completed PT, has completed 6 weeks in 02/2022 Labs: AST very slightly elevated, ALT wnl, Cr wnl 02/2022 Plan: -right femoral and obturator articulating branch block x2. The patient will be scheduled for 2 separate diagnostic blocks. If they have significant relief and improved functionality after each of these blocks, we will proceed with radiofrequency ablation. -discussed referral to Ortho for right STEPHANIE -start Lyrica 25mg PO BID -f/u after injections I have checked an OARRS report on this patient today and there are no aberrancies noted in the prescribing history. A drug screen was completed and reviewed within the last year, and if there has not been a drug screen completed we ordered one today to monitor higher risk, state monitored pain medication use. The patient was advised that U.S. Food and Drug Administration (FDA) is warning that respiratory depression may occur in patients using gabapentin (Neurontin, Gralise, Horizant) or pregabalin (Lyrica, Lyrica CR) who have respiratory risk factors. These include the use of opioid pain medicines and other drugs that depress the central nervous system, and conditions such as chronic obstructive pulmonary disease (COPD) that reduce lung function. The elderly are also at higher risk. The patient was counseled that proper dietary changes and consistent participation in a home exercise plan can lead to weight loss. Weight loss can help to improve functionality in patients with chronic pain. documented in this encounter [facility] 03-21-2022 Instructions Chante Calderon RN - 03/21/2022 10:45 AM EDT Facet Joint Injection/Medial Branch Block Facet joints are small joints on either side of each vertebra in the spinal column. They connect each vertebra with the vertebra above and below. These joints help us to bend forward and backward and to a limited extent to the side. Facet joint blocks are injections of local anesthetic (numbing medication) with or without steroid into the facet joints. Two small nerves supply each facet joint. In diagnostic blocks (Medial Branch Block), local anesthetic is used to numb these tiny nerves to block the pain impulses going to the brain. These diagnostic blocks help to find out whether the facet joints are the cause of the pain. How is the procedure performed? The area to be injected will be cleansed with an aseptic solution to prevent infection. The procedure is done under fluoroscopy (live x-ray guidance) to confirm needle placement and deliver the medication to the precise location. What should I do and expect after the procedure? If the source of your pain is from these joints, you should have pain relief for a period of 2 to 4 hours after the injection. During the first 2 hours after your injection you should try to reproduce your pain (do things that normally cause your pain). You will need to record how you feel for the first two hours and bring this with you to your follow up visit. Do not take pain medication the morning of your procedure and for the first 2-4 hours after your procedure. The next day you should resume your normal activities, and you may return to work. What are the risks and side effects? With any procedure there can be risks, side effects and complications. These vary depending on where the procedure was done. Whenever the integrity of the skin is broken there is a risk for infection and soreness. There is also the potential for more numbness than expected depending on the spread of local anesthetic. Bleeding, headaches and nerve damage are also possible complications of the procedure. However, all the complications are extremely rare. documented in this [facility] 03-08-2022 History and physical note HPI: This 67 y.o. female presents for treatment of chronic right hip and groin Pain. Current Outpatient Medications: alendronate 70 MG tablet, Take 1 tablet by mouth every 7 days. alendronate 70 mg tablet TAKE 1 TABLET BY MOUTH EVERY 7 DAYS WITH A FULL GLASS OF WATER ON AN EMPTY STOMACH. REMAIN UPRIGHT AND DO NOT EAT FOR NEXT 30 MINUTES, Disp: , Rfl: amitriptyline 100 MG tablet, Take 1 tablet by mouth at bedtime., Disp: , Rfl: amitriptyline 100 MG tablet, Take 100 mg by mouth daily., Disp: , Rfl: calcium carbonate 1250 (500 Ca) MG tablet, Take 1,250 mg by mouth 2 times daily with meals., Disp: , Rfl: celecoxib 200 MG capsule, Take 1 capsule by mouth 2 times daily as needed for Mild Pain., Disp: 60 capsule, Rfl: 1 Dextromethorphan-Guaifenesin 60-1200 MG Tab SR 12 HR tablet, Take 1 Dose by mouth every 12 hours as needed., Disp: , Rfl: diphenhydrAMINE 25 MG capsule, Take 25 mg by mouth Every 6 hours as needed for Itching., Disp: , Rfl: diphenhydramine 25 MG tablet, Take 25 mg by mouth Every 6 hours as needed., Disp: , Rfl: divalproex [address], Take 500 mg by mouth daily., Disp: , Rfl: DULoxetine [address] Particles capsule DR, Take 30 mg by mouth daily., Disp: , Rfl: Etanercept (Enbrel) 50 MG/ML Solution Prefilled Syringe injection, Inject 50 mg under the skin daily., Disp: , Rfl: folic acid 1 MG tablet, Take 1 tablet by mouth daily. folic acid 1 mg tablet TAKE 1 TABLET BY MOUTH ONCE DAILY EXCEPT ON THE DAY METHOTREXATE IS TAKEN., Disp: , Rfl: hydroxychloroquine 200 MG tablet, Take 400 mg by mouth daily. Take 2 tablets by mouth once daily, Disp: , Rfl: hydroxychloroquine 200 MG tablet, Take 200 mg by mouth daily., Disp: , Rfl: losartan 25 MG tablet, Take 25 mg by mouth daily. (Patient not taking: Reported on 03/08/2022), Disp: , Rfl: losartan 25 MG tablet, Take 1 tablet by mouth daily. (Patient not taking: Reported on 03/08/2022), Disp: , Rfl: Magnesium Oxide (MAG-200 PO), Take 1 tablet by mouth 2 times daily with meals., Disp: , Rfl: methotrexate 2.5 MG tablet, Take 4 tablets by mouth every 7 days., Disp: , Rfl: metoclopramide 10 MG tablet, Take 1 Dose by mouth as needed., Disp: , Rfl: Multiple Vitamin (Multi-Vitamin) tablet, Take 1 tablet by mouth daily., Disp: , Rfl: nitrofurantoin, macrocrystal-monohydrate, 100 MG capsule, Take 1 capsule by mouth 2 times daily. (Patient not taking: Reported on 03/08/2022), Disp: , Rfl: propranolol 20 MG tablet, Take 3 tablets by mouth daily. TAKE 1 TABLET BY MOUTH IN THE MORNING AND 2 TABLETS IN THE EVENING, Disp: , Rfl: Qulipta 60 MG tablet, Take 1 tablet by mouth daily. (Patient not taking: Reported on 03/08/2022), Disp: , Rfl: Rivaroxaban 20 MG tablet, Take 20 mg by mouth at bedtime. (Patient not taking: Reported on 03/08/2022), Disp: , Rfl: sertraline 100 MG tablet, Take 100 mg by mouth daily. (Patient not taking: Reported on 03/08/2022), Disp: , Rfl: Specialty Vitamins Products (magnesium, amino acid chelate,) 133 MG tablet, Take by mouth., Disp: , Rfl: tizanidine 2 MG capsule, Take 2 mg by mouth 2 times daily. (Patient not taking: Reported on 03/08/2022), Disp: , Rfl: Current Facility-Administered Medications: bupivacaine (PF) (MARCAINE) 0.25 % 3 mL syringe, 3 mL, Other, Once (Outpt Clinic), Michaela Alarcon MD lidocaine 1% (PF) (XYLOCAINE MPF) 10 mL syringe, 8 mL, Other, Once (Outpt Clinic), Michaela Alarcon MD triamcinolone (KENALOG-40) injection 40 mg, 40 mg, Other, Once (Outpt Clinic), Michaela Alarcon MD No past medical history on file. No past surgical history on file. No family history on file. Review of Systems: General: Denies fevers, chills, or night sweats Abdominal: Denies nausea, vomiting, diarrhea Respiratory: Denies cough, sputum production Genitourinary: Denies dysuria or frequency Vitals: 03/08/22 0910 BP: 147/87 Pulse: 59 Resp: 18 Constitutional The patient is awake, alert, well developed, well nourished and well groomed. The patient is pleasant and cooperative. The patient is a good historian and is very helpful with the history and physical examination. Musculoskeletal Right Pelvis Hip The pelvis is misaligned. The right ASIS is more superior. There is tenderness to palpation over the right inguinal area. There is increased pain and reproduction of inguinal pain with internal rotation of the femoral head in the right hip(s). KIRA Vahe test reproduces pain in the Right inguinal region. Muscle strength is 5/5 in the lower extremities. Neurologic Cranial Nerves 2-12 were tested and are grossly intact. The deep tendon reflexes of the in upper and lower extremities are symmetrical; they are graded at 2/4. Plantar reflexes (Babinski): toes are downgoing. Cerebellar function is normal; Romberg's test is negative. The gait is normal. Sensory testing for pain (pinprick), light touch, position, and vibration is intact. Psychiatric Normal Psych: The patient is oriented to person, place, and time. Speech is fluent and words are clear. Thought processes are coherent, insight is good. There are no obsessive, compulsive, phobic or delusional thoughts; there are no illusions or hallucinations. The patient's fund of knowledge: awareness of current events and past history is appropriate for age. The patient's higher cognitive functions are intact. The patient's mood is neutral and the affect appropriate; there are no loose associations. Assessment: ICD-10-CM 1. Primary osteoarthritis of right hip M16.11 Plan: Proceed with right intra-articular hip injection [facility] 03-08-2022 History and physical note HPI: This 67 y.o. female presents for treatment of chronic right hip and groin Pain. Current Outpatient Medications: alendronate 70 MG tablet, Take 1 tablet by mouth every 7 days. alendronate 70 mg tablet TAKE 1 TABLET BY MOUTH EVERY 7 DAYS WITH A FULL GLASS OF WATER ON AN EMPTY STOMACH. REMAIN UPRIGHT AND DO NOT EAT FOR NEXT 30 MINUTES, Disp: , Rfl: amitriptyline 100 MG tablet, Take 1 tablet by mouth at bedtime., Disp: , Rfl: amitriptyline 100 MG tablet, Take 100 mg by mouth daily., Disp: , Rfl: calcium carbonate 1250 (500 Ca) MG tablet, Take 1,250 mg by mouth 2 times daily with meals., Disp: , Rfl: celecoxib 200 MG capsule, Take 1 capsule by mouth 2 times daily as needed for Mild Pain., Disp: 60 capsule, Rfl: 1 Dextromethorphan-Guaifenesin 60-1200 MG Tab SR 12 HR tablet, Take 1 Dose by mouth every 12 hours as needed., Disp: , Rfl: diphenhydrAMINE 25 MG capsule, Take 25 mg by mouth Every 6 hours as needed for Itching., Disp: , Rfl: diphenhydramine 25 MG tablet, Take 25 mg by mouth Every 6 hours as needed., Disp: , Rfl: divalproex [address], Take 500 mg by mouth daily., Disp: , Rfl: DULoxetine [address] Particles capsule DR, Take 30 mg by mouth daily., Disp: , Rfl: Etanercept (Enbrel) 50 MG/ML Solution Prefilled Syringe injection, Inject 50 mg under the skin daily., Disp: , Rfl: folic acid 1 MG tablet, Take 1 tablet by mouth daily. folic acid 1 mg tablet TAKE 1 TABLET BY MOUTH ONCE DAILY EXCEPT ON THE DAY METHOTREXATE IS TAKEN., Disp: , Rfl: hydroxychloroquine 200 MG tablet, Take 400 mg by mouth daily. Take 2 tablets by mouth once daily, Disp: , Rfl: hydroxychloroquine 200 MG tablet, Take 200 mg by mouth daily., Disp: , Rfl: losartan 25 MG tablet, Take 25 mg by mouth daily. (Patient not taking: Reported on 03/08/2022), Disp: , Rfl: losartan 25 MG tablet, Take 1 tablet by mouth daily. (Patient not taking: Reported on 03/08/2022), Disp: , Rfl: Magnesium Oxide (MAG-200 PO), Take 1 tablet by mouth 2 times daily with meals., Disp: , Rfl: methotrexate 2.5 MG tablet, Take 4 tablets by mouth every 7 days., Disp: , Rfl: metoclopramide 10 MG tablet, Take 1 Dose by mouth as needed., Disp: , Rfl: Multiple Vitamin (Multi-Vitamin) tablet, Take 1 tablet by mouth daily., Disp: , Rfl: nitrofurantoin, macrocrystal-monohydrate, 100 MG capsule, Take 1 capsule by mouth 2 times daily. (Patient not taking: Reported on 03/08/2022), Disp: , Rfl: propranolol 20 MG tablet, Take 3 tablets by mouth daily. TAKE 1 TABLET BY MOUTH IN THE MORNING AND 2 TABLETS IN THE EVENING, Disp: , Rfl: Qulipta 60 MG tablet, Take 1 tablet by mouth daily. (Patient not taking: Reported on 03/08/2022), Disp: , Rfl: Rivaroxaban 20 MG tablet, Take 20 mg by mouth at bedtime. (Patient not taking: Reported on 03/08/2022), Disp: , Rfl: sertraline 100 MG tablet, Take 100 mg by mouth daily. (Patient not taking: Reported on 03/08/2022), Disp: , Rfl: Specialty Vitamins Products (magnesium, amino acid chelate,) 133 MG tablet, Take by mouth., Disp: , Rfl: tizanidine 2 MG capsule, Take 2 mg by mouth 2 times daily. (Patient not taking: Reported on 03/08/2022), Disp: , Rfl: Current Facility-Administered Medications: bupivacaine (PF) (MARCAINE) 0.25 % 3 mL syringe, 3 mL, Other, Once (Outpt Clinic), Michaela Alarcon MD lidocaine 1% (PF) (XYLOCAINE MPF) 10 mL syringe, 8 mL, Other, Once (Outpt Clinic), Michaela Alarcon MD triamcinolone (KENALOG-40) injection 40 mg, 40 mg, Other, Once (Outpt Clinic), Michaela Alarcon MD No past medical history on file. No past surgical history on file. No family history on file. Review of Systems: General: Denies fevers, chills, or night sweats Abdominal: Denies nausea, vomiting, diarrhea Respiratory: Denies cough, sputum production Genitourinary: Denies dysuria or frequency Vitals: 03/08/22 0910 BP: 147/87 Pulse: 59 Resp: 18 Constitutional The patient is awake, alert, well developed, well nourished and well groomed. The patient is pleasant and cooperative. The patient is a good historian and is very helpful with the history and physical examination. Musculoskeletal Right Pelvis Hip The pelvis is misaligned. The right ASIS is more superior. There is tenderness to palpation over the right inguinal area. There is increased pain and reproduction of inguinal pain with internal rotation of the femoral head in the right hip(s). KIRA Vahe test reproduces pain in the Right inguinal region. Muscle strength is 5/5 in the lower extremities. Neurologic Cranial Nerves 2-12 were tested and are grossly intact. The deep tendon reflexes of the in upper and lower extremities are symmetrical; they are graded at 2/4. Plantar reflexes (Babinski): toes are downgoing. Cerebellar function is normal; Romberg's test is negative. The gait is normal. Sensory testing for pain (pinprick), light touch, position, and vibration is intact. Psychiatric Normal Psych: The patient is oriented to person, place, and time. Speech is fluent and words are clear. Thought processes are coherent, insight is good. There are no obsessive, compulsive, phobic or delusional thoughts; there are no illusions or hallucinations. The patient's fund of knowledge: awareness of current events and past history is appropriate for age. The patient's higher cognitive functions are intact. The patient's mood is neutral and the affect appropriate; there are no loose associations. Assessment: ICD-10-CM 1. Primary osteoarthritis of right hip M16.11 Plan: Proceed with right intra-articular hip injection documented in this encounter [facility] 03-08-2022 History of Present illness Narrative Heidi has been reminded of her procedure date, arrival time, and location. she has been asked to stop at registration to register for the procedure prior to coming to our department. Heidi denies any recent antibiotic therapy, having had any symptoms of COVID, testing positive for COVID, or having had the vaccine or booster in the past two weeks. she was asked if she is diabetic. If diabetic, she has been instructed to call our office if blood sugar reading is over 200 the morning of the scheduled procedure. The patient was also asked if she is on any blood thinning medications, and if so, have they been held appropriately. Heidi has been instructed to eat prior to coming in unless she is having sedation. If the patient is having a radiofrequency ablation, the patient denies having a pacemaker or we have received clearance for their pacemaker. SCRUB - AARTI Farrar RT - RT Vincent PRECISION INSTRUMENT MAKER AND REPAIRER - N/A BLOOD BANK BUSINESS MANAGER - Oliva Erazo RN Physician - Dr. Alarcon Site cleansed with hibiclens. documented in this encounter [facility] 03-08-2022 Procedure note Associated Ord er(s): LARGE JOINT/BURSA INJECTION AND/OR ASPIRATION Procedure(s): LARGE JOINT/BURSA INJECTION AND/OR ASPIRATION Pre-Procedure Diagnose(s): Primary osteoarthritis of right hip Post-Procedure Diagnose(s): Primary osteoarthritis of right hip Procedure: Right Hip Injection under Fluoroscopic Guidance Attending physician: Michaela Alarcon MD Preoperative diagnosis: Right Hip pain Postoperative diagnosis: Same Anesthesia: Local Indication for procedure: Patient presents with right hip pain radiating to the groin. The patient presents for right hip injection. Technique: The technical support analyst's and physician's hands were washed immediately prior to the procedure using a chlorhexidine soap or sanitized using ethyl alcohol hand second facing baster. Hat, mask, and sterile gloves were used for the entirety of the procedure. All other personnel in the room wore hat and masks, as well as appropriate personal protective equipment. Risks and benefits of the procedure were discussed in detail, and an informed consent was completed and signed by the patient and physician. A timeout was performed prior to the start of the procedure. This patient was given a verbal description of the intended procedure including risk and benefits of the procedure. The patient was then able to provide written informed consent for the procedure. The patient was then placed in a supine position on a fluoroscopy table. The skin and subcutaneous tissue overlying the right hip joint was prepped and draped in usual sterile fashion using Hibiclens prep x3. Then using a C-arm fluoroscope the right hip joint was identified in AP orientation. The skin and subcutaneous tissue overlying the entry point was anesthestized through a 25 gauge 1.5 inch needle and 3 mL of 1% lidocaine. Then, under fluoroscopic guidance a 22-gauge 3-1/2 inch angulated with the spinal needle was advanced from the anterior aspect of the thigh and groin towards the hip joint specifically where the femoral neck meets the femoral head. Once the needle had entered the hip joint the stylette was removed. Then after negative aspiration for blood, CSF, or any other body fluid a mixture of 40 mg of triamcinolone and 3mLs of 0.25% bupivaicane was injected slowly. Contrast was not utilized in this procedure due to the nationwide contrast shortage. Increased risk of intra-vascular, intra-neural, intra-muscular, intra-ligament, intra-osseous, and intrathecal administration of medication was explained to the patient, and per GIANNI updated practice guidelines necessity of contrast was determined for the individual procedure. After the medication was deposited the needle was flushed with 0.2mL of 1% lidocaine and removed. The patient's thigh was cleansed and Band-Aid dressings were applied. The patient tolerated the procedure well with no complications. The patient will followup at the next scheduled procedure. COMPLICATIONS: The patient tolerated the procedure well with no complications. PLAN :Follow-up at next scheduled visit [facility] 03-08-2022 Procedure note Associated Ord er(s): LARGE JOINT/BURSA INJECTION AND/OR ASPIRATION Procedure(s): LARGE JOINT/BURSA INJECTION AND/OR ASPIRATION Pre-Procedure Diagnose(s): Primary osteoarthritis of right hip Post-Procedure Diagnose(s): Primary osteoarthritis of right hip Procedure: Right Hip Injection under Fluoroscopic Guidance Attending physician: Michaela Alarcon MD Preoperative diagnosis: Right Hip pain Postoperative diagnosis: Same Anesthesia: Local Indication for procedure: Patient presents with right hip pain radiating to the groin. The patient presents for right hip injection. Technique: The technical support analyst's and physician's hands were washed immediately prior to the procedure using a chlorhexidine soap or sanitized using ethyl alcohol hand second facing baster. Hat, mask, and sterile gloves were used for the entirety of the procedure. All other personnel in the room wore hat and masks, as well as appropriate personal protective equipment. Risks and benefits of the procedure were discussed in detail, and an informed consent was completed and signed by the patient and physician. A timeout was performed prior to the start of the procedure. This patient was given a verbal description of the intended procedure including risk and benefits of the procedure. The patient was then able to provide written informed consent for the procedure. The patient was then placed in a supine position on a fluoroscopy table. The skin and subcutaneous tissue overlying the right hip joint was prepped and draped in usual sterile fashion using Hibiclens prep x3. Then using a C-arm fluoroscope the right hip joint was identified in AP orientation. The skin and subcutaneous tissue overlying the entry point was anesthestized through a 25 gauge 1.5 inch needle and 3 mL of 1% lidocaine. Then, under fluoroscopic guidance a 22-gauge 3-1/2 inch angulated with the spinal needle was advanced from the anterior aspect of the thigh and groin towards the hip joint specifically where the femoral neck meets the femoral head. Once the needle had entered the hip joint the stylette was removed. Then after negative aspiration for blood, CSF, or any other body fluid a mixture of 40 mg of triamcinolone and 3mLs of 0.25% bupivaicane was injected slowly. Contrast was not utilized in this procedure due to the nationwide contrast shortage. Increased risk of intra-vascular, intra-neural, intra-muscular, intra-ligament, intra-osseous, and intrathecal administration of medication was explained to the patient, and per GIANNI updated practice guidelines necessity of contrast was determined for the individual procedure. After the medication was deposited the needle was flushed with 0.2mL of 1% lidocaine and removed. The patient's thigh was cleansed and Band-Aid dressings were applied. The patient tolerated the procedure well with no complications. The patient will followup at the next scheduled procedure. COMPLICATIONS: The patient tolerated the procedure well with no complications. PLAN :Follow-up at next scheduled visit documented in this encounter [facility] 02-11-2022 History of Present illness Narrative [facility] OUTPATIENT REHABILITATION DAILY TREATMENT NOTE Today's Date 02/11/2022 Patient Name: Heidi Mcintosh Date of : 1955 Current Visit #: 12 Authorized Visits: 199 Case Name: R hip pain and neck pain History: Pre-Treatment Pain Scale: sore Symptoms: gradually improved Functional Diagnosis: 1. Right hip pain 2. Osteoarthritis of cervical spine with myelopathy 3. Bilateral occipital neuralgia Clinical Information: Subjective: Patient states that she is doing better today. States that she thinks she is ready to be done with therapy for the time being. She has made progress and she wants to try and keep up with her own exercise program at home. Objective Hip Right Hip Muscle Strength: Flexion: 4 Abduction: 4- Left Hip Muscle Strength: Flexion: 4 Abduction: 4- Cervical Spine: Additional Cervical Extension: 45 degrees L rotation: 53 degrees R rotation: 50 degrees TTP: SO Treatments: Physical Therapy Exercise Log No documentation. Goals: Physical Therapy Ortho Goals: Pt will demonstrate understanding of HEP in 2 weeks.- MET Pt will increase bilateral hip abduction, flexion, and extension MMTs to 4/5 in 6 weeks.- Improved Pt will increase R hip IR/ER AROM to equal L IR/ER AROM in 6 weeks.- Improved. Pt will be able to walk without pain in 6 weeks.- Improved Pt will be able to tolerate cervical AROM in all planes without pain in 6 weeks.- Improved. Pt will report 0/10 headache pain at rest in 6 weeks.- Improved Patient Education: Quality of movement with patient demonstrated understanding. Post-Treatment Pain Scale: Assessment: Patient had an expected response to treatment. Patient will be discharged from therapy this date. She will try and complete an HEP on her own at this time. She has continued pain and soreness but is aware that she needs to continue daily movement and keep working toward building more strength. Skilled Intervention demonstrated by modifications of treatment per exercise log including increased load and safety interventions per exercise log. Progress towards goals as expected. Plan for Next Visit: Discharge Aftab Aldridge PT STATE LICENSE, [id number] documented in this encounter [facility] 02-07-2022 Instructions Trish Crum - 02/07/2022 2:57 PM EDT Radiofrequency Treatment Radiofrequency Treatment is a procedure using a specialized machine to interrupt nerve conduction on a semi-permanent basis. The nerves are usually blocked for a period as short as 3 months or as long as 18 months. The procedure disrupts nerve conduction, and it may in turn reduce pain and other related symptoms. Approximately 70%-80% of patients will get good block of the intended nerve. This should help relieve that part of the pain that the blocked nerve controls. Sometimes after a nerve is blocked, it becomes clear that there is pain from other areas as well. How is the procedure performed? The procedure is done as an outpatient at our surgical suite under x-ray guidance to confirm needle placement. Since the nerves cannot be seen on x-ray, the needles are positioned using bony landmarks. The area to be injected is cleansed with an antiseptic solution to prevent infection. A local anesthetic is injected to numb the skin. A special cannula is advanced under x-ray to the area of the nerve. When the needle is in good position, electrical stimulation is done before any treatment. This treatment may produce a buzzing or tingling sensation. You may also feel your muscles jump. The tissues surrounding the needle tip are then heated when current is passed using the radiofrequency machine. This numbs the nerves. What should I do and expect after the procedure? We advise that patients take it easy for a day or so after the procedure. You may want to apply ice to the affected area to decrease any inflammation. Perform your normal activities as tolerated. Initially there may be muscle soreness for up to a week afterward. Ice packs will usually control this discomfort. It may take up to three weeks to notice the full benefit of this procedure. What are the risks and side effects? With any procedure there are risks, side effects and the possibility of complications. These vary depending on where the procedure was done. Whenever the integrity of the skin is broken there is a potential for infection and soreness. Bleeding, headaches and nerve damage are also possible complications of the procedure. However, all complications are extremely rare. documented in this encounter [facility] 02-07-2022 History of Present illness Narrative Nurse Note: Review of Systems Endocrine: Positive for cold intolerance. Musculoskeletal: Positive for gait problem and neck pain. Neurological: Positive for headaches. All other systems reviewed and are negative. Nursing Assessment: Physical Exam Thank you for the referral of Heidi Mcintosh. As you know, she is a very pleasant 67 y.o. female who presents with right hip pain. The patient began to notice this pain generator in August,. Heidi does not recall an inciting event although she does have Rheumatoid and Osteoarthritis, and Osteoperosis. Pain is described as Aching and Sharp and is rated 4/10 today, but 8/10 when it's flared up. Pain is increased with walking too far, stooping or kneeling, standing up straight and is relieved by ice packs, Volteran gel, stretches, and PT. The patient states that pain is worst depending on what activity she is performing. The patient denies numbness/tingling. Heidi admits to having weakness right hip and leg. The patient denies bowel/bladder incontinence. Treatment modalities that have been used include massage, heat, injections. The patient admits to having injection therapy, from Dr Ewing. The patient does not report spine surgery. Diagnostic studies include XR and MRI. Patient denies tobacco use. Patient is in physical therapy currently - 6 weeks so far. Audit-C Questionnaire 1. How often do you have a drink containing alcohol? (0) never 2. How many standard drinks containing alcohol do you have on a typical day? (0) 1 or 2 3. How often do you have six or more drinks on one occasion? (0) never *A score of 3 or more in women or 4 or more in men is a positive score that requires education. No past medical history on file. No past surgical history on file. Psychological/Psychiatric History: The patient has not been evaluated by a psychiatrist or psychologist. Social History: Social History Socioeconomic History Marital status: Family History: The patient denies any family history of autoimmune or connective tissue disorders. Physical Examination: Vitals: 02/07/22 1425 BP: 102/69 Pulse: 68 Resp: 15 Physical exam: Vitals: 02/07/22 1425 BP: 102/69 Pulse: 68 Resp: 15 Constitutional The patient is awake, alert, well developed, well nourished and well groomed. The patient is pleasant and cooperative. The patient is a good historian and is very helpful with the history and physical examination. Head The skull is normocephalic, atraumatic and without masses. The patient's facial expression and facial contours are normal; the parotid glands are not enlarged. The sinuses are non-tender. Palpation of the temporal and masseter muscles reveals normal strength of muscle contraction. There is symmetry of the nasolabial folds. There is no facial droop. Eyes The eyelids are without lesions. The sclera is white and the conjunctiva pink. No tearing noted at baseline. No scarring noted. ENT External inspection of ears and nose is without scars, lesions or masses. Hearing appears to be grossly intact. The nasal mucosa is pink and without discharge. The septum is midline. The turbinates are not enlarged. The buccal mucosa is pink; there is no cyanosis. The lips are normal color; there are no ulcers, masses or lesions. The mucosa of the oropharynx is moist, The tongue is midline, The pharynx is without exudates. The tonsils are not enlarged. Neck The neck is supple and the trachea is midline. No masses palpable. No erythema or visible venous distension. No scaring noted. Respiratory The patient is relaxed and breathes without effort. The patient is not cyanotic and does not use the accessory muscles of respiration. The chest expands symmetrically upon inspiration. Upon palpation of the chest wall there is no tenderness or masses. Cardiovascular Upon palpation of the chest wall there are no heaves, lifts, or thrills. There is no pitting edema of the lower extremities. There are no bruits. The peripheral artery pulses are equal and brisk. Extremities are warm Gastrointestinal The abdomen is soft and nontender; there is no guarding or rigidity. There are no palpable masses. There is no hepatosplenomegaly. There is no costovertebral angle (CVA) tenderness. Neurologic Cranial Nerves 2-12 are grossly intact. The deep tendon reflexes of the in bilateral lower extremities are symmetrical;. Plantar reflexes (Babinski): toes are downgoing. Cerebellar function is normal; Romberg's test is negative. The gait is abnormal. Sensory testing for pain (pinprick), light touch, and proprioception is intact in bilateral lower extremities. No ankle or wrist clonus present. Negative Patrick's sign. Motor in bilateral lower extremities is 5/5. Psychiatric The patient is oriented to person, place, and time. Speech is fluent and words are clear. Thought processes are coherent, insight is good. There are no obsessive, compulsive, phobic or delusional thoughts; there are no illusions or hallucinations. The patient's fund of knowledge: awareness of current events and past history is appropriate for age. The patient's higher cognitive functions are intact. The patient's mood is neutral and the affect appropriate MSK The patient has moderate difficulty transitioning from sitting to standing. The patient has a(n) antalgic gait. The cervical spine demonstrates a flexion biased curve. There is no deformity to the cervical spine. There is no abnormality in muscle tone in the cervical spine. There is limitation with range of motion in the cervical spine. Extension, rotation, and lateral bending are moderate limited. Tender to palpation over PSIS on right and FADIR, internal rotation, and external rotation were positive in RLE. . cervical facet loading is positive bilaterally. Assessment: ICD-10-CM 1. Cervical spondylosis without myelopathy M47.812 2. Primary osteoarthritis of right hip M16.11 3. Migraine without status migrainosus, not intractable, unspecified migraine type G43.909 67 y.o. female w/PMHx of migraine headaches, RA, takusubos, DVT who presents for evaluation of right hip pain Injections: Dr. Ewing performed Meds: on methotrexate, topical diclofenac gel, no longer on blood thinners, on depakote for headaches. Tried gabapentin in the past without benefit. Imaging: MRI right hip 2021 shows severe OA with joint effusion (note this is only mild on xray), MRI cervical spine shows degenerative facet arthropathy at C3-4, C4-5 with mild canal stenosis from C4-C7, there is severe foraminal stenosis from C4-C7. Knee xrays 2021 show mild medial knee OA L>R. Referrals/consults: Dr. Ewing rheumatology PT: currently in PT, has completed 6 weeks with 1 visit left Labs: none that I can view Plan: -right hip intra-articular injection -discussed cervical spine facet blocks and RFA, provided information today -start celebrex 200mg PO BID PRN pain, to be used only as needed #14 tabs. She is very aware of medication overuse headaches that can occur with both opioid and NSAID medications, and is going to start infusion therapy for her migraines -UDS today -f/u 2 weeks after injection, will discuss bilateral C2-3, C4-5 facet blocks and RFA at that appointment, consider re-trial of Lyrica I have checked an OARRS report on this patient today and there are no aberrancies noted in the prescribing history. A drug screen was completed and reviewed within the last year, and if there has not been a drug screen completed we ordered one today to monitor higher risk, state monitored pain medication use. The patient was counseled that proper dietary changes and consistent participation in a home exercise plan can lead to weight loss. Weight loss can help to improve functionality in patients with chronic pain. The patient has been prescribed celebrex. The patient has tried 2 previous NSAID medications which are ibuprofen 800mg PO TID and naproxyn 220mg PO BID (include dose) without sustained relief. Discussed that patient should only be on one NSAID at a time, and to avoid taking multiple different NSAIDs. Also discussed risks of renal, GI, and CV adverse effects. Thank you for the opportunity to participate in the care of your patient. Sincerely, Michaela Alarcon MD Nurse Note: Review of Systems Endocrine: Positive for cold intolerance. Musculoskeletal: Positive for gait problem and neck pain. Neurological: Positive for headaches. All other systems reviewed and are negative. Nursing Assessment: Physical Exam Thank you for the referral of Heidi Mcintosh. As you know, she is a very pleasant 67 y.o. female who presents with right hip pain. The patient began to notice this pain generator in August,. Heidi does not recall an inciting event although she does have Rheumatoid and Osteoarthritis, and Osteoperosis. Pain is described as Aching and Sharp and is rated 4/10 today, but 8/10 when it's flared up. Pain is increased with walking too far, stooping or kneeling, standing up straight and is relieved by ice packs, Volteran gel, stretches, and PT. The patient states that pain is worst depending on what activity she is performing. The patient denies numbness/tingling. Heidi admits to having weakness right hip and leg. The patient denies bowel/bladder incontinence. Treatment modalities that have been used include massage, heat, injections. The patient admits to having injection therapy, from Dr Ewing. The patient does not report spine surgery. Diagnostic studies include XR and MRI. Patient denies tobacco use. Patient is in physical therapy currently - 6 weeks so far. Audit-C Questionnaire 1. How often do you have a drink containing alcohol? (0) never 2. How many standard drinks containing alcohol do you have on a typical day? (0) 1 or 2 3. How often do you have six or more drinks on one occasion? (0) never *A score of 3 or more in women or 4 or more in men is a positive score that requires education. documented in this encounter [facility] 02-06-2022 History of Present illness Narrative [facility] OUTPATIENT REHABILITATION DAILY TREATMENT NOTE Today's Date 02/06/2022 Patient Name: Heidi Mcintosh Date of : 1955 Current Visit #: 11 Authorized Visits: 199 Case Name: R hip pain and neck pain History: Pre-Treatment Pain Scale: 4 Symptoms: gradually improved Functional Diagnosis: 1. Right hip pain 2. Osteoarthritis of cervical spine with myelopathy 3. Bilateral occipital neuralgia Clinical Information: Subjective: Pt comes in with mild pain in R hip/groin. She reports that she is feeling better than the other day.No adverse effects from previous session. Pt to see pain Dr tomorrow. Objective: Began with Nustep warm up for R hip/groin/core. Pt performed gentle strengthening ex's per log to improve functional ROM, strength and stability in R hip/groin/core. Brought back more ex's from program that were held last session d/t pt not feeling well. Performed all therapeutic ex's with focus on core control and form/technique for maximal functional outcome. Performed manual therapy per log to improve mobility and decrease sx's. Treatments: Physical Therapy Exercise Log - 02/06/22 1005 OTHER Precautions/Contraindications osteoporosis and RA 10:05AM-10:41AM Notes Reginaldo/alea Mcgregor, 12 Vitals gluteal tendonopathy, trochanteric bursitis --> improve hip A/PROM and strength Therapeutic Exercise (29553) Intervention Manual Parameters Nustep L3 7' (384 steps) to START Intervention LTR's 3 10x1 B (keep shallow) Parameters bridges with glute squeeze at end range (core tight) 3 10x1 Intervention 8 13.2 # KB deadlift 2x5 (feet planted) Parameters standing hip abd x10 each (core focus)-held Intervention piriformis stretch R 20 x3-NT/too painful Parameters STS 22 no UE push off x10; x5 Intervention quadruped rock backs 3 2x5 Parameters shuttle squats D/L 37#10x2- NT Intervention ambulation with straight cane out of clinic 130' SUPERINTENDENT MARINE SBA-NT Parameters seated AROM cervical: B rotations, retractions, ext 3 12x1 ea -HEP today/focused on hip/groin Intervention scalene/UT stretches 20 x2 ea-HEP today, chin tucks 3 [id number] Parameters HEP: glute bridge, LTRs, chin tucks (give pics of new ex's with ea.session) Manual Therapy (64019) Intervention long-axis distraction 20 x5 R Parameters STM using 2# ball to R hip and groin region / lat.R hip jt mob 10' total for all manual therapy Functional Activity (56563) Intervention manual hip IR/ER stretch 20 x2 ea R- NT PT Treatment Times Therex Total Time 26 Manual Therapy Total Time 10 Direct Treatment Time 36 Goals: Physical Therapy Ortho Goals: Pt will demonstrate understanding of HEP in 2 weeks. Pt will increase bilateral hip abduction, flexion, and extension MMTs to 4/5 in 6 weeks. Pt will increase R hip IR/ER AROM to equal L IR/ER AROM in 6 weeks. Pt will be able to walk without pain in 6 weeks. Pt will be able to tolerate cervical AROM in all planes without pain in 6 weeks. Pt will report 0/10 headache pain at rest in 6 weeks. Patient Education: Quality of movement, Verbal HEP, and Pain Management with patient demonstrated understanding and verbalized understanding. Post-Treatment Pain Scale: better with movement, physical and muscle fatigue upon departure Assessment: Patient had an expected response to treatment. Pt able to progress with current program today. Does continue to have slow gait pattern in/out of clinic this date. Pt feeling better today though. Continues to get relief with manual therapy techniques, brought back long-axis distractions today. Spoke with pt about continuing therapy and advised of free month next door (pt is interested). To discuss with PT[facility] at [place]. Skilled Intervention demonstrated by modifications of treatment per exercise log including increased load and assessment of patient's response and safety interventions per exercise log. Progress towards goals as expected. Plan for Next Visit: Treatment Visit with focus on improving functional mobility, strength, and stability in R hip/groin/core. Monitor response. Progress as tolerable. Next visit is set with [facility]-PT, last session. Pt is interested in more sessions if able (also interested in free month at [facility]). Rozina Gordillo PTA STATE LICENSE, [id number] documented in this encounter [facility] 2022 History of Present illness Narrative [facility] OUTPATIENT REHABILITATION DAILY TREATMENT NOTE Today's Date 2022 Patient Name: Heidi Mcintosh Date of : 1955 Current Visit #: 9 Authorized Visits: 199 Case Name: R hip pain and neck pain History: Pre-Treatment Pain Scale: 6 Symptoms: gradually improved Functional Diagnosis: 1. Right hip pain 2. Osteoarthritis of cervical spine with myelopathy 3. Bilateral occipital neuralgia Clinical Information: Subjective: Pt comes in with quite a bit of pain in her R hip/glute/groin/LB. She states that she was quite busy yesterday (errands, visiting father, etc). She has done a lot of busy work around the house (dishes, picking things up) before coming in this a.m. She reports using Voltaren and sitting on ice this a.m. before coming in to therapy. Pt was standing yesterday and noticed a numbness in her upper thigh that started to go down her legs (got to knees) and then pt went to lay down. Has a hx of cardiac issues so pt was concerned. The incident only lasted a couple minutes and then dissipated, hasn't happened again. Objective: Began with Nustep warm up for R hip/glute/groin/LB/core. Pt performed gentle strengthening ex's per log to improve functional ROM, strength and stability in R hip/glute/groin/LB/core. Increased program with quadruped rock backs this date to further challenge strength and mobility. Performed all therapeutic ex's with focus on core control and posture for maximal functional outcome. Performed manual techniques per log to improve mobility and relax tissues. Treatments: Physical Therapy Exercise Log - 01/30/22 1000 OTHER Precautions/Contraindications osteoporosis and RA 10:00AM-10:43AM Notes Reginaldo/alea Mcgregor, 12 Vitals gluteal tendonopathy, trochanteric bursitis --> improve hip A/PROM and strength Therapeutic Exercise (38949) Intervention Manual Parameters Nustep L3 7' (423 steps) to START Intervention LTR's 3 10x1 B (keep shallow) Parameters bridges with glute squeeze at end range (core tight) 3 10x1 Intervention 8 13.2 # KB deadlift 2x5 (feet planted) Parameters standing hip abd x10 each (core focus) Intervention piriformis stretch R 20 x3-NT/too painful Parameters STS 22 no UE push off x10 Intervention quadruped rock backs 3 2x5 Parameters shuttle squats D/L 37#10x2- NT Parameters seated AROM cervical: B rotations, retractions, ext 3 12x1 ea -HEP today/focused on hip/groin Intervention scalene/UT stretches 20 x2 ea-HEP today, chin tucks 3 [id number] Parameters HEP: glute bridge, LTRs, chin tucks (give pics of new ex's with ea.session) Manual Therapy ([id number]) Intervention long-axis distraction 20 x4 R- NT / manual hip IR/ER stretch 20 x2 ea R Parameters STM using 2# ball to R hip and groin region / lat.R hip jt mob 10' total for all manual therapy PT Treatment Times Therex Total Time 33 Manual Therapy Total Time 10 Direct Treatment Time 43 Goals: Physical Therapy Ortho Goals: Pt will demonstrate understanding of HEP in 2 weeks. Pt will increase bilateral hip abduction, flexion, and extension MMTs to 4/5 in 6 weeks. Pt will increase R hip IR/ER AROM to equal L IR/ER AROM in 6 weeks. Pt will be able to walk without pain in 6 weeks. Pt will be able to tolerate cervical AROM in all planes without pain in 6 weeks. Pt will report 0/10 headache pain at rest in 6 weeks. Patient Education: Quality of movement, Verbal HEP, and Pain Management with patient demonstrated understanding and verbalized understanding. Post-Treatment Pain Scale: better with movement and manual therapy but still quite sore upon departure Assessment: Patient had an expected response to treatment. Pt able to progress with program with some difficulty noted. Gait impaired with slow, controlled movements throughout session. Able to perform ex's independently but is challenged yet with current program. Demos good understanding of program, needs reinforced with core control and pace. Great relief with manual techniques, especially lateral hip mobs and 2# ball on groin. Encouraged pt to ice as needed for pain/inflammation relief at home. Skilled Intervention demonstrated by modifications of treatment per exercise log including increased load and assessment of patient's response and safety interventions per exercise log. Progress towards goals as expected. Plan for Next Visit: Treatment Visit with focus on improving functional mobility, strength, and stability in R hip/groin/LB/core. Monitor response. Next visit attempt to continue to challenge as tolerable. Rozina Gordillo PTA STATE LICENSE, [id number] documented in this encounter [facility] 01-28-2022 History of Present illness Narrative [facility] OUTPATIENT REHABILITATION DAILY TREATMENT NOTE Today's Date 01/28/2022 Patient Name: Heidi Mcintosh Date of : 1955 Current Visit #: 8 Authorized Visits: 199 Case Name: R hip pain and neck pain History: Pre-Treatment Pain Scale: Hip seems to be 4-5/10 pain, Neck is manageable today. Symptoms: gradually improved Functional Diagnosis: 1. Right hip pain 2. Osteoarthritis of cervical spine with myelopathy 3. Bilateral occipital neuralgia Clinical Information: Subjective: HIP: Patient states that she has noticed some progress to the R hip. States that she still has difficulty with crouching down to get something on the floor. States less radiating pain down the leg and most pain is in the posterior glute and anterior hip/groin region. NECK: It is doing alright. Had pain for so long that she is more focused on the hip right now. Objective Treatments: Physical Therapy Exercise Log - 01/28/22 0834 OTHER Precautions/Contraindications osteoporosis and RA 8:31AM-9:15AM Notes Reginaldo/alea Mcgregor, 12 Vitals gluteal tendonopathy, trochanteric bursitis --> improve hip A/PROM and strength Therapeutic Exercise ([id number]) Parameters Nustep L3 7' (423 steps) Intervention LTR's 3 10x1 B (keep shallow) Parameters abd.bracing 5 12x1 / abd.bracing with marches 12x1 (tenderness on R side) Intervention bridges with glute squeeze at end range (core tight) 3 10x1 Parameters S/L hip abd (core tight) 10x1 B-held today to focus more on manual Intervention piriformis stretch R 20 x3-NT/too painful Parameters STS 22 no UE push off 10x1 Intervention seated AROM cervical: B rotations, retractions, ext 3 12x1 ea -HEP today/focused on hip/groin Parameters chin tucks 3 [id number] today Intervention scalene/UT stretches 20 x2 ea-HEP today Parameters NV-SOR, RDL's Intervention see manual below Parameters hooklying hip abd/add isometrics (belt/bolster) 5 10x1 ea Intervention shuttle squats D/L 37#10x2 Parameters HEP: glute bridge, LTRs, chin tucks (give pics of new ex's with ea.session) Manual Therapy ([id number]) Intervention long-axis distraction 20 x4 R / manual hip IR/ER stretch 20 x2 ea R Parameters STM using 2# ball to R hip and groin region / lat.R hip jt mob 10' total Goals: Physical Therapy Ortho Goals: Pt will demonstrate understanding of HEP in 2 weeks. Pt will increase bilateral hip abduction, flexion, and extension MMTs to 4/5 in 6 weeks. Pt will increase R hip IR/ER AROM to equal L IR/ER AROM in 6 weeks. Pt will be able to walk without pain in 6 weeks. Pt will be able to tolerate cervical AROM in all planes without pain in 6 weeks. Pt will report 0/10 headache pain at rest in 6 weeks. Patient Education: Quality of movement with patient demonstrated understanding. Post-Treatment Pain Scale: sore Assessment: Patient had an expected response to treatment. Added walking to her home HEP. Starting at 5 minutes and progressing forward. Going forward I want to add in more functional strength to improve patients overall tolerance to movement. Skilled Intervention demonstrated by modifications of treatment per exercise log including increased load and safety interventions per exercise log. Progress towards goals as expected. Plan for Next Visit: Treatment Visit with focus on Improving functional strength. Aftab Aldridge PT STATE LICENSE, [id number] documented in this encounter [facility] 01-23-2022 History of Present illness Narrative [facility] OUTPATIENT REHABILITATION DAILY TREATMENT NOTE Today's Date 01/23/2022 Patient Name: Heidi Mcintosh Date of : 1955 Current Visit #: 7 Authorized Visits: 199 Case Name: R hip pain and neck pain History: Pre-Treatment Pain Scale: 3/10 R hip/groin, 2/10 neck Symptoms: gradually improved Functional Diagnosis: 1. Right hip pain 2. Osteoarthritis of cervical spine with myelopathy 3. Bilateral occipital neuralgia Clinical Information: Subjective: Pt comes in today with mild pain. She states that she woke up late but when she did wake it wasn't hurting her much. Now that she rushed around to get here her pain is about a 3/10. She feels that the R hip is getting better but it's taking time. Comes in with some neck pain but reports she may have slept wrong on it. Objective: Began with Nustep warm up for R hip/groin/neck. Pt performed gentle strengthening ex's per log to improve functional ROM, strength and stability in R hip/groin/neck. Increased program by adding shuttle squats (D/L). Performed all therapeutic ex's with focus on core control and form for maximal functional outcome. Performed long-axis distractions and lateral hip jt mobs to reduce tightness and improve mobility. Performed 2# ball STM to R groin as well to reduce tension. Treatments: Physical Therapy Exercise Log - 01/23/22 0831 OTHER Precautions/Contraindications osteoporosis and RA 8:31AM-9:15AM Notes Reginaldo/alea Mcgregor, 12 Vitals gluteal tendonopathy, trochanteric bursitis --> improve hip A/PROM and strength Therapeutic Exercise ([id number]) Parameters Nustep L3 7' (423 steps) Intervention LTR's 3 10x1 B (keep shallow) Parameters abd.bracing 5 12x1 / abd.bracing with marches 12x1 (tenderness on R side) Intervention bridges with glute squeeze at end range (core tight) 3 10x1 Parameters S/L hip abd (core tight) 10x1 B-held today to focus more on manual Intervention piriformis stretch R 20 x3-NT/too painful Parameters STS 22 no UE push off 10x1 Intervention seated AROM cervical: B rotations, retractions, ext 3 12x1 ea -HEP today/focused on hip/groin Parameters chin tucks 3 [id number] today Intervention scalene/UT stretches 20 x2 ea-HEP today Parameters NV-SOR, RDL's Intervention see manual below Parameters hooklying hip abd/add isometrics (belt/bolster) 5 10x1 ea Intervention shuttle squats D/L 37#10x2 Parameters HEP: glute bridge, LTRs, chin tucks (give pics of new ex's with ea.session) Manual Therapy ([id number]) Intervention long-axis distraction 20 x4 R / manual hip IR/ER stretch 20 x2 ea R Parameters STM using 2# ball to R hip and groin region / lat.R hip jt mob 10' total PT Treatment Times Therex Total Time 29 Manual Therapy Total Time 15 Direct Treatment Time 44 Goals: Physical Therapy Ortho Goals: Pt will demonstrate understanding of HEP in 2 weeks. Pt will increase bilateral hip abduction, flexion, and extension MMTs to 4/5 in 6 weeks. Pt will increase R hip IR/ER AROM to equal L IR/ER AROM in 6 weeks. Pt will be able to walk without pain in 6 weeks. Pt will be able to tolerate cervical AROM in all planes without pain in 6 weeks. Pt will report 0/10 headache pain at rest in 6 weeks. Patient Education: Quality of movement, Verbal HEP, and Pain Management with patient demonstrated understanding and verbalized understanding. Post-Treatment Pain Scale: feels good after manual therapy Assessment: Patient had an expected response to treatment. Tenderness noted with long-axis distractions, modified accordingly. Pt responds well to all manual therapy techniques this session. Continues to make improvements, slow yet steady. Able to progress with shuttle squats without difficulty. Did not address neck this date as hip/groin are her biggest concerns currently. Encouraged pt to ice once home and once again before bed. To report back with any increased sx's. Skilled Intervention demonstrated by modifications of treatment per exercise log including increased load and assessment of patient's response and safety interventions per exercise log. Progress towards goals as expected. Plan for Next Visit: Treatment Visit with focus on improving functional mobility, strength, and stability in R hip/groin/neck. Monitor response. Progress as tolerable. Next visit attempt more closed-chain activity. Rozina Gordillo PTA STATE LICENSE, [id number] documented in this encounter [facility] 01-21-2022 History of Present illness Narrative [facility] OUTPATIENT REHABILITATION DAILY TREATMENT NOTE Today's Date 01/21/2022 Patient Name: Heidi Mcintosh Date of : 1955 Current Visit #: 6 Authorized Visits: 199 Case Name: R hip pain and neck pain History: Pre-Treatment Pain Scale: 3/10 R hip, 4/10 R groin, 1/10 neck Symptoms: gradually improved Functional Diagnosis: 1. Right hip pain 2. Osteoarthritis of cervical spine with myelopathy 3. Bilateral occipital neuralgia Clinical Information: Subjective: Pt comes in with mild to moderate pain. She reports that she did ok after last session. Was unable to get STM at home but reports that it did help reduce her sx's last session. Objective: Began with Nustep warm up for R hip/groin/neck. Pt performed gentle strengthening ex's per log to improve functional ROM, strength and stability in R hip/groin/neck. Increased program by adding hip abd/add isometrics. Performed all therapeutic ex's with focus on core control and proper form/technique for maximal functional outcome. Performed STM using 2# ball to R hip and groin to alleviate sx's. Also performed long-axis distractions to R hip to reduce sx's. Treatments: Physical Therapy Exercise Log - 01/21/22 0829 OTHER Precautions/Contraindications osteoporosis and RA 8:30AM-9:13AM Notes Reginaldo/alea Mcgregor, 12 Vitals gluteal tendonopathy, trochanteric bursitis --> improve hip A/PROM and strength Therapeutic Exercise ([id number]) Parameters Nustep L3 7' (414 steps) Intervention LTR's 3 12x1 B (keep shallow) Parameters abd.bracing 5 12x1 / abd.bracing with marches 12x1 (tenderness on R side) Intervention bridges with glute squeeze at end range (core tight) 3 12x1 Parameters S/L hip abd (core tight) 10x1 B Intervention piriformis stretch R 20 x3-NT/too painful Parameters STS 22 no UE push off 10x1 Intervention seated AROM cervical: B rotations, retractions, ext 3 12x1 ea -HEP today/focused on hip/groin Parameters chin tucks 3 [id number] today Intervention scalene/UT stretches 20 x2 ea-HEP today Parameters NV-SOR, hip IR/ER stretch, RDL's Intervention see manual below Parameters hooklying hip abd/add isometrics (belt/bolster) 5 10x1 ea Parameters HEP: glute bridge, LTRs, chin tucks Manual Therapy ([id number]) Intervention long-axis distraction 20 x4 R Parameters STM using 2# ball to R hip and groin region-8' total PT Treatment Times Therex Total Time 33 Manual Therapy Total Time 10 Direct Treatment Time 43 Goals: Physical Therapy Ortho Goals: Pt will demonstrate understanding of HEP in 2 weeks. Pt will increase bilateral hip abduction, flexion, and extension MMTs to 4/5 in 6 weeks. Pt will increase R hip IR/ER AROM to equal L IR/ER AROM in 6 weeks. Pt will be able to walk without pain in 6 weeks. Pt will be able to tolerate cervical AROM in all planes without pain in 6 weeks. Pt will report 0/10 headache pain at rest in 6 weeks. Patient Education: Quality of movement, Verbal HEP, and Pain Management with patient demonstrated understanding and verbalized understanding. Post-Treatment Pain Scale: better at end of session, relief with manual therapy Assessment: Patient had an expected response to treatment. Pt able to progress with new isometrics (hip). Demos good understanding of program, needs reinforced with core control, form/technique. Sent pt home with pics of new ex's for HEP. Reviewed with pt before sending her home. Great relief with STM and long-axis distraction. Encouraged pt to ice as needed for pain/inflammation relief. Skilled Intervention demonstrated by modifications of treatment per exercise log including increased load and assessment of patient's response and safety interventions per exercise log. Progress towards goals as expected. Plan for Next Visit: Treatment Visit with focus on improving functional mobility, strength, and stability in R hip/groin/neck. Monitor response. Progress as tolerable. Encouraged pt to check in with [facility]-PT next week since she hasn't seen him since eval. Rozina Gordillo PTA STATE LICENSE, [id number] documented in this encounter [facility] 01-16-2022 History of Present illness Narrative [facility] OUTPATIENT REHABILITATION DAILY TREATMENT NOTE Today's Date 01/16/2022 Patient Name: Heidi Mcintosh Date of : 1955 Current Visit #: 5 Authorized Visits: 199 Case Name: R hip pain and neck pain History: Pre-Treatment Pain Scale: 5/10 R hip, 2/10 neck, 3/10 [place] pain Symptoms: gradually improved Functional Diagnosis: 1. Right hip pain 2. Osteoarthritis of cervical spine with myelopathy 3. Bilateral occipital neuralgia Clinical Information: Subjective: Pt comes in with moderate pain in hip, mild pain in neck and head. She reports that she had a rough night last night. Her R hip woke her up early this a.m. and she had to apply some Voltaren to get comfortable. She states that she has a sharp pain along R groin this a.m. Objective: Began with Nustep warm up for R hip/core/neck. Performed gentle long-axis distraction to R hip as pt presented with an up-shift this date. Pt performed gentle strengthening ex's per log to improve functional ROM, strength and stability in R hip/core/neck. Performed all therapeutic ex's with focus on proper form and core control for maximal functional outcome. Performed STM using 2# ball to R hip and R groin region to reduce tension and improve mobility and sx's. Ended with seated neck ex's to cool down. Treatments: Physical Therapy Exercise Log - 01/16/22 0830 OTHER Precautions/Contraindications osteoporosis and RA 8:30AM-9:16AM Notes Reginaldo/alea Mcgregor, 12 Vitals gluteal tendonopathy, trochanteric bursitis --> improve hip A/PROM and strength Therapeutic Exercise ([id number]) Parameters Nustep L3 6' (359 steps) Intervention LTR's 3 12x1 B (keep shallow) Parameters abd.bracing 5 12x1 / abd.bracing with marches 12x1 (tenderness on R side) Intervention bridges with glute squeeze at end range (core tight) 3 12x1 Parameters S/L hip abd (core tight) 10x1 B Intervention piriformis stretch R 20 x3-NT/time Parameters STS 22 no UE push off 10x1 Intervention seated AROM cervical: B rotations, retractions, ext 3 12x1 ea (only rotations and retractions on 01-16-22) Parameters chin tucks 3 [id number] today Intervention scalene/UT stretches 20 x2 ea Parameters NV-SOR, hip IR/ER stretch, RDL's Intervention see manual below Parameters HEP: glute bridge, LTRs, chin tucks Manual Therapy ([id number]) Intervention long-axis distraction 20 x4 R Parameters STM using 2# ball to R hip and groin region-8' total PT Treatment Times Therex Total Time 36 Manual Therapy Total Time 10 Direct Treatment Time 46 Goals: Physical Therapy Ortho Goals: Pt will demonstrate understanding of HEP in 2 weeks. Pt will increase bilateral hip abduction, flexion, and extension MMTs to 4/5 in 6 weeks. Pt will increase R hip IR/ER AROM to equal L IR/ER AROM in 6 weeks. Pt will be able to walk without pain in 6 weeks. Pt will be able to tolerate cervical AROM in all planes without pain in 6 weeks. Pt will report 0/10 headache pain at rest in 6 weeks. Patient Education: Quality of movement, Verbal HEP, and Pain Management with patient demonstrated understanding and verbalized understanding. Post-Treatment Pain Scale: better in R hip and R groin region after manual therapy Assessment: Patient had an expected response to treatment. Great relief with long-axis distraction and LLD improved afterwards. Demos good understanding of program, needs reinforced with posture and core engagement. Great relief with STM as well. Encouraged pt to ice once home to further reduce inflammation and pain. Skilled Intervention demonstrated by modifications of treatment per exercise log including increased load and assessment of patient's response and safety interventions per exercise log. Progress towards goals as expected. Plan for Next Visit: Treatment Visit with focus on improving functional mobility, strength, and stability in R hip/core/neck. Monitor response. Progress as tolerable. Suggestions on log to progress. Rozina Gordillo PTA STATE LICENSE, [id number] documented in this encounter [facility] 01-14-2022 History of Present illness Narrative [facility] OUTPATIENT REHABILITATION DAILY TREATMENT NOTE Today's Date 01/14/2022 Patient Name: Heidi Mcintosh Date of : 1955 Current Visit #: 4 Authorized Visits: 199 Case Name: R hip pain and neck pain History: Pre-Treatment Pain Scale: 4/10 hip pain, 3/10 neck pain, 4/10 [place] pain Symptoms: gradually improved Functional Diagnosis: 1. Right hip pain 2. Osteoarthritis of cervical spine with myelopathy 3. Bilateral occipital neuralgia Clinical Information: Subjective: Pt comes in with mild to moderate pain in head, neck, R hip. She reports no adverse effects from previous session. She does report soreness from taking her father to an appt at [facility] and had to walk quite a bit. Objective: Began with Nustep warm up for R hip/neck. Pt performed gentle strengthening ex's per log to improve functional ROM, strength and stability in R hip/neck. Increased reps this date to further challenge strength and stability. Performed all therapeutic ex's with focus on core control and form for maximal functional outcome. Ended with seated neck ex's to cool down. 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 Pt will increase bilateral hip abduction, flexion, and extension MMTs to 4/5 in 6 weeks. Pt will increase R hip IR/ER AROM to equal L IR/ER AROM in 6 weeks. Pt will be able to walk without pain in 6 weeks. Pt will be able to tolerate cervical AROM in all planes without pain in 6 weeks. Pt will report 0/10 headache pain at rest in 6 weeks. Patient Education: Quality of movement, Verbal HEP, and Pain Management with patient demonstrated understanding and verbalized understanding. Post-Treatment Pain Scale: sore/tender today Assessment: Patient had an expected response to treatment. Pt has a difficult time today with R LE (getting onto bed, performing marches, etc). Tenderness throughout session. Able to progress with reps without difficulty. Educated pt on importance of movement with RA to increase synovial fluid in joints. Skilled Intervention demonstrated by modifications of treatment per exercise log including increased load and assessment of patient's response and safety interventions per exercise log. Progress towards goals as expected. Plan for Next Visit: Treatment Visit with focus on improving functional mobility, strength, and stability in neck, R hip, core. Monitor response. Progress as tolerable. Next visit attempt listed ex's per PT's recommendations. Rozina Gordillo PTA STATE LICENSE, [id number] documented in this encounter [facility] 01-09-2022 History of Present illness Narrative [facility] OUTPATIENT REHABILITATION DAILY TREATMENT NOTE Today's Date 01/09/2022 Patient Name: Heidi Mcintosh Date of : 1955 Current Visit #: 3 Authorized Visits: 199 Case Name: R hip pain and neck pain History: Pre-Treatment Pain Scale: 2-3.5/10 neck and R hip, 2/10 [place] pain Symptoms: gradually improved Functional Diagnosis: 1. Right hip pain 2. Osteoarthritis of cervical spine with myelopathy 3. Bilateral occipital neuralgia Clinical Information: Subjective: Pt comes in with mild pain. She reports tolerable soreness after last session. She states that she has not sleeping well. She feels that she wakes with pain and and had to take 3 Ibuprofen and 2 extra strength tylenol (something her dentist told her to do before), helped her sleep. She had her MRI and got results (hasn't talked to too much about them). Seeing a pain specialist for injections in Jan. MRI results: IMPRESSION: 1. Severe osteoarthritis of the right hip with possible superimposed rheumatoid arthritis with more central joint space loss. Joint effusion and synovitis. 2. High-grade tendinosis and high-grade partial tearing of the common hamstring origin bilaterally. No definite evidence of complete rupture. 3. Gluteal insertional tendinosis without tear. 4. Right iliopsoas bursitis. 5. [id number] degenerative disease of the visualized lumbar spine, incompletely characterized. Objective: Began with supine core-based program per log with focus on upright posture throughout. Pt performed gentle strengthening ex's per log to improve functional ROM, strength and stability in cervical spine/musculature and R hip. Increased program by adding cervical UT and scalene stretches. Performed all therapeutic ex's with focus on posture, core control for maximal functional outcome. Ended with Nustep to cool down. Treatments: Physical Therapy Exercise Log - 01/09/22 0836 OTHER Precautions/Contraindications osteoporosis and RA 8:35AM-9:20AM Notes Reginaldo/alea Mcgregor, 12 Vitals gluteal tendonopathy, trochanteric bursitis --> improve hip A/PROM and strength Therapeutic Exercise ([id number]) Parameters Nustep L2 5' (191 steps) Intervention LTR's 3 10x1 B (keep shallow) Parameters abd.bracing 5 10x1 / abd.bracing with marches 10x1 Intervention bridges with glute squeeze at end range (core tight) 3 10x1 Parameters S/L hip abd (core tight) 10x1 B Intervention piriformis stretch R 20 x3 Parameters STS 22 no UE push off 10x1 Intervention seated AROM cervical: B rotations, retractions, ext 3 10x1 ea Parameters chin tucks 3 10x1 Intervention scalene/UT stretches 20 x2 ea Parameters NV-SOR, hip IR/ER stretch, RDL's Parameters HEP: glute bridge, LTRs, chin tucks PT Treatment Times Therex Total Time 45 Direct Treatment Time 45 Goals: Physical Therapy Ortho Goals: Pt will demonstrate understanding of HEP in 2 weeks. Pt will increase bilateral hip abduction, flexion, and extension MMTs to 4/5 in 6 weeks. Pt will increase R hip IR/ER AROM to equal L IR/ER AROM in 6 weeks. Pt will be able to walk without pain in 6 weeks. Pt will be able to tolerate cervical AROM in all planes without pain in 6 weeks. Pt will report 0/10 headache pain at rest in 6 weeks. Patient Education: Quality of movement, Verbal HEP, and Pain Management with patient demonstrated understanding and verbalized understanding. Post-Treatment Pain Scale: feels better after therapy Assessment: Patient had an expected response to treatment. Pt able to progress with stretches without difficulty. Did not progress too much today d/t pt still being early in her program. To progress more next week. Demos good understanding of program, needs reinforced with core control and posture/form. Sent pt home with pics of new ex's for HEP. Reviewed with pt before sending her home. Encouraged pt to ice as needed for pain/inflammation relief at home. Skilled Intervention demonstrated by modifications of treatment per exercise log including increased load and assessment of patient's response and safety interventions per exercise log. Progress towards goals as expected. Plan for Next Visit: Treatment Visit with focus on improving functional mobility, strength, and stability in neck/R hip. Monitor response. Progress as tolerable. Next visit attempt hip IR/ER and RDL's. Rozina Gordillo PTA STATE LICENSE, [id number] documented in this encounter [facility] 12-25-2021 History of Present illness Narrative Images from the original note were not included. Telephone Visit Via Phone Call I discussed risks, benefits and alternatives of a telephone visit telemedicine consultation with the patient (and any accompanying persons) including the risks that the patient's personal health details and medical records will be discussed over real-time, synchronous, interactive audio technology, the visit will not be recorded without the express consent of both the provider and the patient, and that there are inherent diagnostic limitations compared to [id number] evaluations. We elected to proceed with the telephone visit telemedicine consultation. I have spent 30 minutes with the patient reviewing the HPI, reviewing and updating the medical records & coordination of care. The patient indicates understanding of these issues and agrees with the plan. RHEUMATOLOGY EST PATIENT VISIT Patients name: Heidi Mcintosh : 1955 Today's date: 12/25/2021 Reason for visit: establish care Disease summary:RA diagnosed in 1997. Status: controlled. Serology: +ve RF (57), CCP(>250) -ve DANNIE, RAFAELA Radiology: Current Meds: enbrel (2008), methotrexate 6 tablets a week (1997), HCQ Pain control: Prior Meds: plaquenil -> ineffective Humira x 9 months ~2007 HPC: This is a 66 y.o. female with a pmhx of DJD, RA, takusubos, h/o blood clots who presents to establish care for her RA. Dx 1997 -> joint swelling / redness 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 since dx with varying doses Chronic headaches / migraines Thinks she got MRI many years ago Had to stop working because of neck pain / migraines Did formal PT NSAIDS PO meds Topical No RFA, no iinjections, no botox Prior Rheum appts: Dr. Lemuel Sadler Dx her at [facility] Dr. Gerardo Khan at [facility] -> Dr moved to [place] Former Dr. 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 I have reviewed the patient's medical history in detail and updated the computerized patient record. Past Medical History: Diagnosis Date Osteopenia Rheumatoid arthritis (HCC) Past Surgical History: Procedure Laterality Date apendectomy FOOT SURGERY Bilateral toncilectomy Social History Tobacco Use Smoking status: Never Smokeless tobacco: Never Vaping Use Vaping Use: Never used Substance Use Topics Alcohol use: No Drug use: No Family History Problem Relation Age of Onset Arthritis Father Heart disease Father Diabetes Father Arthritis Mother Cancer Mother Osteoporosis Neg Hx Hip fracture Neg Hx Allergies Allergen Reactions Diclofenac GI Intolerance Lomotil [Diphenoxylate-Atropine] GI Intolerance No outpatient medications have been marked as taking for the 12/25/21 encounter (Appointment) with Andrea Ewing MD. Review of Systems: General Constitutional: Denied fevers, chills, anorexia, weight loss, or night sweats Eyes: denied blurry vision, no dry eyes, no RP ENT: denied nasal drainage, sinus pressure, nasal ulcers Mouth: denied oral ulcers, dry mouth Lymphatics: no new adenopathy in cervical, supraclavicular, axillary, inguinal regions Respiratory: no cough, SOB CV: denied palpitations, chest pain/pressure, PND, orthopnea. GI: denied abd pain, n/v/d, constipation, melena. : denied dysuria, urgency, frequency or hematuria. Skin: no rashes or lesions Musculoskeletal: as per HPI Hematologic/lmmunologic: no adenopathy, bleeding, easy bruisiality or recurrent infection. Neurology: Denied new headaches, speech/balance/coordination problems. Denied new focal numbness or weakness of extremities Psych: denied anxiety, depression or mood swings A 10 point review of systems was completed. Physical Exam: There were no vitals taken for this visit. DATA: I have reviewed lab work and imaging. Labs:reviewed. Imaging: reviewed. 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 Advised patient to abstain from alcohol. -Explained to patient that she needs to take folic acid supplementation every day EXCEPT day MTX is administered to reduce the incidence of other adverse effects associated with folate deficiency such as stomatitis, alopecia, diarrhea, nausea/vomiting, flu-like symptoms, shortness of breath, symptoms of myelosuppression, hepatotoxicity, infection, lymph node swelling. - 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 should be held for 2 weeks after vaccinations when possible -No plans for . Encounter for monitoring of etanercept therapy - Plan: All biologics suppress the immune system and increase the risk of infections. -People who take biologics are head likely to get infections such as upper respiratory infections, pneumonia, urinary tract infections, and skin infections. -Increased risk of opportunistic infections. -Risk of injection site reaction. -Counseled to hold biological if active infection or fever. -Advised to obtain vaccinations (PCV13 first then PPSV23 8 weeks later, yearly flu, shingrix,COVID) -Patient that have been treated with high-dose steroids, alkylating agents, 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s or biologicals that are immunosuppressive or immunomodulator should receive a 3rd dose of the [employer] or moderna mRNA Covid vaccine. intermediate frame tender HCQ therapy - Advised patient that the purpose of screening is to detect retinal toxicity, if it develops, before the vision is affected. The primary screening tests are automated visual rosas and spectral domain optical coherence tomography (SD-OCT). Early OCT changes are almost always asymptomatic and may remain so if HCQ is discontinued. -I advised the patient to undergo assessment of ocular health within a year of starting long-term antimalarial drug therapy. The baseline examination should include a fundus examination of the macula to rule out any underlying disease that may interfere with the interpretation of screening tests. -Advised patient that we prefer annual screening exams however the AAO has suggested that for patients with a normal baseline exam who do not have major risk factors for toxic retinopathy, follow-up examinations may be deferred until there have been five years of exposure. -Major risk factors for toxic retinopathy include a daily dose of HCQ greater than 5 mg/kg real body weight,antimalarial use for greater than five years, the presence of renal disease, concomitant tamoxifen use, and/or the presence of macular disease. Age-related osteoporosis without current pathological fracture -Last visit done end of October 2021, next DEXA due October 2023 - Plan: continue with Fosamax 70 mg/week The patient indicates understanding of these issues and agrees with the plan. Return to clinic in 6-9 month(s) Telehealth appointments ok. Andrea Ewing MD [employer] Note: To expedite correspondence this note was generated by [employer] voice recognition software. Some grammatical or spelling errors may occur using the system. documented in this encounter [facility] 12-17-2021 Telephone encounter Note Pt had labs drawn friday [facility] 12-17-2021 Miscellaneous Notes Pt had labs drawn friday documented in this encounter [facility] 11-27-2021 History of Present illness Narrative Associated Order(s): LG Jt Injection/Arthrocentesis: L greater trochanteric bursa; LG Jt Injection/Arthrocentesis: R greater trochanteric bursa Post-Procedure Diagnose(s): Trochanteric bursitis of both hips Images from the original note were not included. RHEUMATOLOGY EST PATIENT VISIT Patients name: Heidi Mcintosh : 1955 Today's date: 11/27/2021 Reason for visit: establish care Disease summary:RA diagnosed in 1997. Status: controlled. Serology: +ve RF (57), CCP(>250) -ve DANNIE, RAFAELA Radiology: Current Meds: enbrel (2008), methotrexate 6 tablets a week (1997), HCQ Pain control: Prior Meds: plaquenil -> ineffective Humira x 9 months ~2007 HPC: This is a 66 y.o. female with a pmhx of DJD, RA, takusubos, h/o blood clots who presents to establish care for her RA. Dx 1997 -> joint swelling / redness 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 since dx with varying doses Chronic headaches / migraines Thinks she got MRI many years ago Had to stop working because of neck pain / migraines Did formal PT NSAIDS PO meds Topical No RFA, no iinjections, no botox Prior Rheum appts: Dr. Lemuel Sadler Dx her at [facility] Dr. Gerardo Khan at [facility] -> Dr moved to [place] Former Dr. 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 Also complains of bilateral hand pain. No overt redness or swelling. Did not obtain any other outside studies. I have reviewed the patient's medical history in detail and updated the computerized patient record. Past Medical History: Diagnosis Date Osteopenia Rheumatoid arthritis (HCC) Past Surgical History: Procedure Laterality Date apendectomy FOOT SURGERY Bilateral toncilectomy Social History Tobacco Use Smoking status: Never Smokeless tobacco: Never Substance Use Topics Alcohol use: No Drug use: No Family History Problem Relation Age of Onset Arthritis Father Heart disease Father Diabetes Father Arthritis Mother Cancer Mother Osteoporosis Neg Hx Hip fracture Neg Hx Allergies Allergen Reactions Diclofenac GI Intolerance Lomotil [Diphenoxylate-Atropine] GI Intolerance No outpatient medications have been marked as taking for the 11/27/21 encounter (Appointment) with Andrea Ewing MD. Review of Systems: General Constitutional: Denied fevers, chills, anorexia, weight loss, or night sweats Eyes: denied blurry vision, no dry eyes, no RP ENT: denied nasal drainage, sinus pressure, nasal ulcers Mouth: denied oral ulcers, dry mouth Lymphatics: no new adenopathy in cervical, supraclavicular, axillary, inguinal regions Respiratory: no cough, SOB CV: denied palpitations, chest pain/pressure, PND, orthopnea. GI: denied abd pain, n/v/d, constipation, melena. : denied dysuria, urgency, frequency or hematuria. Skin: no rashes or lesions Musculoskeletal: as per HPI Hematologic/lmmunologic: no adenopathy, bleeding, easy bruisiality or recurrent infection. Neurology: Denied new headaches, speech/balance/coordination problems. Denied new focal numbness or weakness of extremities Psych: denied anxiety, depression or mood swings A 10 point review of systems was completed. Physical Exam: BP 123/80 Pulse 74 Wt 59.9 kg (132 lb) BMI 25.78 kg/m Gen: NAD, resting comfortably,Alert, cooperative, no distress, appears stated age HEENT: NCAT, no temporal wasting, EOMI, perrl, anicteric sclerae, mmm, no op lesions Neck: supple, no thyromegaly or LAD, no bruits Lymphatics: no cervical, axillary, or inguinal adenopathy Chest: Good a/e b/l, no added sounds, no respiratory distress CV: RRR, no m/r/g, normal S1, S2 Abd: soft, nontender, nondistended, +BS, no hepatosplenomegaly Ext: no clubbing, cyanosis or edema MSK: Changes consistent with hand OA otherwise no synovitis of the MCPs or PIPs. Crepitus of the knees no effusion or warmth. Skin: no rashes or lesions Neuro: no focal deficits, moves all four extremities Psych: Mood and affect appropriate DATA: I have reviewed lab work and imaging. Labs:reviewed. Imaging: reviewed. Health Maintenance Due Topic Date Due Wellness Visit Never done Depression Screening (PHQ-2/9) Never done Colorectal Cancer Screening Never done Falls Risk Assessment Never done COVID-19 Vaccine (3 - Pfizer risk series) 08/05/2021 PROCEDURE NOTE: LG Jt Injection/Arthrocentesis: L greater trochanteric bursa Date/Time: 11/27/2021 2:08 PM Performed by: Andrea Ewing MD Authorized by: Andrea Ewing MD [facility] [id number] - Large Joint Arthrocentesis: Consent given by: Patient Time out: Immediately prior to the procedure a time out was called Timeout performed at: 11/27/2021 2:08 PM Physician or proceduralist has discussed critical or nonroutine steps, procedure duration and anticipated blood loss: Yes Supporting Documentation: Indications: Pain Procedure Details: Location: Hip Site: L greater trochanteric bursa Prep: patient was prepped and draped in usual sterile fashion Needle size: 25 G Approach: Lateral Medication group details: 1cc of Lidocaine 1% + 40mg of Triamcinolone Acetonide. Patient tolerance: Patient tolerated the procedure well with no immediate complications LG Jt Injection/Arthrocentesis: R greater trochanteric bursa Date/Time: 11/27/2021 2:08 PM Performed by: Andrea Ewing MD Authorized by: Andrea Ewing MD [facility] [id number] - Large Joint Arthrocentesis: Consent given by: Patient Time out: Immediately prior to the procedure a time out was called Timeout performed at: 11/27/2021 2:08 PM Physician or proceduralist has discussed critical or nonroutine steps, procedure duration and anticipated blood loss: Yes Supporting Documentation: Indications: Pain Procedure Details: Location: Hip Site: R greater trochanteric bursa Prep: patient was prepped and draped in usual sterile fashion Needle size: 25 G Approach: Lateral Medication group details: 1cc of Lidocaine 1% + 40mg of Triamcinolone Acetonide. Patient tolerance: Patient tolerated the procedure well with no immediate complications Medications per area: 1cc of Lidocaine 1% + 40mg of Triamcinolone Acetonide. [facility]: [id number] + [id number] A dressing was placed over the site. The patient tolerated the procedure well. No bleeding complications occurred. Andrea Ewing MD Assessment & Plan Rheumatoid arthritis +RF/CCP - appears controlled - Plan: stay on same dose of methotrexate which is 6 pills a week and weekly enbrel &HCQ 400mg/day 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 - Plan: Liver fibrosis test - Q3 labs at [facility] labs - Explained to patient that we need to monitor for laboratory abnormalities such as liver function and blood counts every three months. Advised patient to abstain from alcohol. -Explained to patient that she needs to take folic acid supplementation every day EXCEPT day MTX is administered to reduce the incidence of other adverse effects associated with folate deficiency such as stomatitis, alopecia, diarrhea, nausea/vomiting, flu-like symptoms, shortness of breath, symptoms of myelosuppression, hepatotoxicity, infection, lymph node swelling. - 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 should be held for 2 weeks after vaccinations when possible -No plans for . Encounter for monitoring of etanercept therapy - Plan: All biologics suppress the immune system and increase the risk of infections. -People who take biologics are head likely to get infections such as upper respiratory infections, pneumonia, urinary tract infections, and skin infections. -Increased risk of opportunistic infections. -Risk of injection site reaction. -Counseled to hold biological if active infection or fever. -Advised to obtain vaccinations (PCV13 first then PPSV23 8 weeks later, yearly flu, shingrix,COVID) -Patient that have been treated with high-dose steroids, alkylating agents, 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s or biologicals that are immunosuppressive or immunomodulator should receive a 3rd dose of the [employer] or [employer] Covid vaccine. intermediate frame tender HCQ therapy - Advised patient that the purpose of screening is to detect retinal toxicity, if it develops, before the vision is affected. The primary screening tests are automated visual rosas and spectral domain optical coherence tomography (SD-OCT). Early OCT changes are almost always asymptomatic and may remain so if HCQ is discontinued. -I advised the patient to undergo assessment of ocular health within a year of starting long-term antimalarial drug therapy. The baseline examination should include a fundus examination of the macula to rule out any underlying disease that may interfere with the interpretation of screening tests. -Advised patient that we prefer annual screening exams however the AAO has suggested that for patients with a normal baseline exam who do not have major risk factors for toxic retinopathy, follow-up examinations may be deferred until there have been five years of exposure. -Major risk factors for toxic retinopathy include a daily dose of HCQ greater than 5 mg/kg real body weight,antimalarial use for greater than five years, the presence of renal disease, concomitant tamoxifen use, and/or the presence of macular disease. Age-related osteoporosis without current pathological fracture -Last visit done end of October 2021, next DEXA due October 2023 - Plan: Patient will start on Fosamax 70 mg/week Osteoarthritis of cervical spine with myelopathy H/O of severe RA in C-spine Chronic migraines - Failed multiple therapies: formal PT, NSAIDs, amitriptine, on chronic narcotics - Uses topicals - Plan: X-ray showed severe DJD, MRI already ordered patient to schedule this. - MR Cervical Spine Without Contrast to ascertain if pain is amenable to interventional pain management (Dr. Michaela Alarcon at [facility]) B/L trochanteric bursitis R>L -Patient obtained injections today of the affected areas. The patient indicates understanding of these issues and agrees with the plan. Return to clinic in 6-9 month(s) Telehealth appointments ok. Andrea Ewing MD [employer] Note: To expedite correspondence this note was generated by [employer] voice recognition software. Some grammatical or spelling errors may occur using the system. documented in this encounter [facility] 11-15-2021 History of Present illness Narrative Images from the original note were not included. Telephone Visit Via Phone Call I discussed risks, benefits and alternatives of a telephone visit telemedicine consultation with the patient (and any accompanying persons) including the risks that the patient's personal health details and medical records will be discussed over real-time, synchronous, interactive audio technology, the visit will not be recorded without the express consent of both the provider and the patient, and that there are inherent diagnostic limitations compared to [id number] evaluations. We elected to proceed with the telephone visit telemedicine consultation. I have spent 30 minutes with the patient reviewing the HPI, reviewing and updating the medical records & coordination of care. The patient indicates understanding of these issues and agrees with the plan. RHEUMATOLOGY NEW PATIENT VISIT Patients name: Heidi Mcintosh : 1955 Today's date: 11/15/2021 Reason for visit: establish care Disease summary:RA diagnosed in 1997. Status: controlled. Serology: +ve RF -ve Radiology: Current Meds: enbrel (2008), methotrexate 6 tablets a week (1997) Pain control: Prior Meds: plaquenil -> ineffective Humira x 9 months ~2007 HPC: This is a 66 y.o. female with a pmhx of DJD, RA, takusubos, h/o blood clots who presents to establish care for her RA. Dx 1997 -> joint swelling / redness 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 since dx with varying doses Chronic headaches / migraines Thinks she got MRI many years ago Had to stop working because of neck pain / migraines Did formal PT NSAIDS PO meds Topical No RFA, no iinjections, no botox Prior Rheum appts: Dr. Lemuel Sadler Dx her at [facility] Dr. Gerardo Khan at [facility] -> moved to [place] Former Dr. 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 Shannon Gonzalez at [facility] Interim: C/o of b/l trochanteric bursitis R>L-> severe Hands-> OK, slight swelling in MCPs, has a nodule on finger of right hands Knees -> good No replacements DEXA -> Not UTD I have reviewed the patient's medical history in detail and updated the computerized patient record. Past Medical History: Diagnosis Date Osteopenia Rheumatoid arthritis (HCC) Past Surgical History: Procedure Laterality Date apendectomy FOOT SURGERY Bilateral toncilectomy Social History Tobacco Use Smoking status: Never Smokeless tobacco: Never Substance Use Topics Alcohol use: No Drug use: No Family History Problem Relation Age of Onset Arthritis Mother Cancer Mother Arthritis Father Heart disease Father Diabetes Father Allergies Allergen Reactions Diclofenac GI Intolerance Lomotil [Diphenoxylate-Atropine] GI Intolerance No outpatient medications have been marked as taking for the 11/15/21 encounter (Appointment) with Andrea Ewing MD. Review of Systems: General Constitutional: Denied fevers, chills, anorexia, weight loss, or night sweats Eyes: denied blurry vision, no dry eyes, no RP ENT: denied nasal drainage, sinus pressure, nasal ulcers Mouth: denied oral ulcers, dry mouth Lymphatics: no new adenopathy in cervical, supraclavicular, axillary, inguinal regions Respiratory: no cough, SOB CV: denied palpitations, chest pain/pressure, PND, orthopnea. GI: denied abd pain, n/v/d, constipation, melena. : denied dysuria, urgency, frequency or hematuria. Skin: no rashes or lesions Musculoskeletal: as per HPI Hematologic/lmmunologic: no adenopathy, bleeding, easy bruisiality or recurrent infection. Neurology: Denied new headaches, speech/balance/coordination problems. Denied new focal numbness or weakness of extremities Psych: denied anxiety, depression or mood swings A 10 point review of systems was completed. Physical Exam: There were no vitals taken for this visit. DATA: I have reviewed lab work and imaging. Labs:reviewed. Imaging: reviewed. Health Maintenance Due Topic Date Due Dexa Scan Never done Wellness Visit Never done Depression Screening (PHQ-2/9) Never done Colorectal Cancer Screening Never done Falls Risk Assessment Never done COVID-19 Vaccine (3 - Pfizer risk series) 08/05/2021 Assessment & Plan Rheumatoid arthritis +RF - appears controlled - Plan: for now, stay on same dose of methotrexate which is 6 pills a week and weekly enbrel, start HCQ 400mg/day - Rheumatoid factor, CCP Antibody, ESR, CRP - XR Hands Bilateral Ball Catchers 2 Views, XR Knees Standing Bilateral AP/ LAT - XR Cervical Spine AP/LAT/FLEX/EXT, MR Cervical Spine Without Contrast, 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 - Plan: Liver fibrosis test - Q3 labs at [facility] labs - Explained to patient that we need to monitor for laboratory abnormalities such as liver function and blood counts every three months. Advised patient to abstain from alcohol. -Explained to patient that she needs to take folic acid supplementation every day EXCEPT day MTX is administered to reduce the incidence of other adverse effects associated with folate deficiency such as stomatitis, alopecia, diarrhea, nausea/vomiting, flu-like symptoms, shortness of breath, symptoms of myelosuppression, hepatotoxicity, infection, lymph node swelling. - 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 should be held for 2 weeks after vaccinations when possible -No plans for . Encounter for monitoring of etanercept therapy - Plan: All biologics suppress the immune system and increase the risk of infections. -People who take biologics are head likely to get infections such as upper respiratory infections, pneumonia, urinary tract infections, and skin infections. -Increased risk of opportunistic infections. -Risk of injection site reaction. -Counseled to hold biological if active infection or fever. -Advised to obtain vaccinations (PCV13 first then PPSV23 8 weeks later, yearly flu, shingrix,COVID) -Patient that have been treated with high-dose steroids, alkylating agents, 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s or biologicals that are immunosuppressive or immunomodulator should receive a 3rd dose of the Pfizer [employer] or moderna mRNA Covid vaccine. prison HCQ therapy - Advised patient that the purpose of screening is to detect retinal toxicity, if it develops, before the vision is affected. The primary screening tests are automated visual rosas and spectral domain optical coherence tomography (SD-OCT). Early OCT changes are almost always asymptomatic and may remain so if HCQ is discontinued. -I advised the patient to undergo assessment of ocular health within a year of starting long-term antimalarial drug therapy. The baseline examination should include a fundus examination of the macula to rule out any underlying disease that may interfere with the interpretation of screening tests. -Advised patient that we prefer annual screening exams however the AAO has suggested that for patients with a normal baseline exam who do not have major risk factors for toxic retinopathy, follow-up examinations may be deferred until there have been five years of exposure. -Major risk factors for toxic retinopathy include a daily dose of HCQ greater than 5 mg/kg real body weight,antimalarial use for greater than five years, the presence of renal disease, concomitant tamoxifen use, and/or the presence of macular disease. Age-related osteoporosis without current pathological fracture - Plan: XR Bone Density DEXA Axial Osteoarthritis of cervical spine with myelopathy H/O of severe RA in C-spine Chronic migraines - Failed multiple therapies: formal PT, NSAIDs, amitriptine, on chronic narcotics - Uses topicals - Plan: XR Cervical Spine AP/LAT/FLEX/EXT to check for subluxation - MR Cervical Spine Without Contrast to ascertain if pain is amenable to interventional pain management (Dr. Michaela Alarcon at [facility]) H/O blood clots - r/o APLS - Plan: Cardiolipin Antibodies, Beta-2 Glycoprotein Antibodies, DANNIE, Nuclear antigen antibody Low serum vitamin D - Plan: Vitamin D, Total, 25-OH B/L trochanteric bursitis R>L - will try add on for injections in the next week or two The patient indicates understanding of these issues and agrees with the plan. Return to clinic in 6-9 month(s) Telehealth appointments ok. Andrea Ewing MD [employer] Note: To expedite correspondence this note was generated by [employer] voice recognition software. Some grammatical or spelling errors may occur using the system. documented in this encounter [facility] + Plan note No data available for this section [facility] Diagnosis Rheumatoid arthritis involving multiple sites with positive rheumatoid factor (HCC)- Primary Trochanteric bursitis of both hips Age-related osteoporosis without current pathological fracture Encounter for monitoring of methotrexate therapy Encounter for monitoring of hydroxychloroquine therapy Osteoarthritis, unspecified osteoarthritis type, unspecified site [facility] Diagnosis Rheumatoid arthritis, involving unspecified site, unspecified whether rheumatoid factor present (HCC) [facility] Diagnosis Rheumatoid arthritis involving multiple sites with positive rheumatoid factor (HCC)- Primary Bilateral occipital neuralgia Right hip pain Pain in joint, pelvic region and thigh Osteoarthritis of cervical spine with myelopathy [facility] Diagnosis Right hip pain- Primary Pain in joint, pelvic region and thigh Osteoarthritis of cervical spine with myelopathy Bilateral occipital neuralgia [facility] Diagnosis Right hip pain- Primary Pain in joint, pelvic region and thigh Osteoarthritis of cervical spine with myelopathy Bilateral occipital neuralgia [facility] Diagnosis Right hip pain- Primary Pain in joint, pelvic region and thigh Osteoarthritis of cervical spine with myelopathy Bilateral occipital neuralgia [facility]* Diagnosis Right hip pain- Primary Pain in joint, pelvic region and thigh Osteoarthritis of cervical spine with myelopathy Bilateral occipital neuralgia [facility]* Diagnosis Right hip pain- Primary Pain in joint, pelvic region and thigh Osteoarthritis of cervical spine with myelopathy Bilateral occipital neuralgia [facility] Diagnosis Right hip pain- Primary Pain in joint, pelvic region and thigh Osteoarthritis of cervical spine with myelopathy Bilateral occipital neuralgia [facility]* Diagnosis Cervical spondylosis without myelopathy- Primary Primary osteoarthritis of right hip Primary localized osteoarthrosis, pelvic region and thigh Migraine without status migrainosus, not intractable, unspecified migraine type [facility] Diagnosis Right hip pain- Primary Pain in joint, pelvic region and thigh Osteoarthritis of cervical spine with myelopathy Bilateral occipital neuralgia [facility]* Diagnosis Primary osteoarthritis of right hip- Primary Primary localized osteoarthrosis, pelvic region and thigh [facility] Diagnosis Primary osteoarthritis of right hip Primary localized osteoarthrosis, pelvic region and thigh [facility] Diagnosis Rheumatoid arthritis, involving unspecified site, unspecified whether rheumatoid factor present (HCC) [facility]* Diagnosis Primary osteoarthritis of right hip- Primary Primary localized osteoarthrosis, pelvic region and thigh Chronic right hip pain Pain in joint, pelvic region and thigh Cervical spondylosis without myelopathy Migraine without status migrainosus, not intractable, unspecified migraine type Rheumatoid arthritis, involving unspecified site, unspecified whether rheumatoid factor present [facility]* Diagnosis Right hip pain- Primary Pain in joint, pelvic region and thigh [facility]* Diagnosis Acute postoperative pain of right hip- Primary Abnormal results of liver function studies Nonspecific abnormal results of liver function study Preop testing Preoperative examination, unspecified Abnormal finding of blood chemistry, unspecified Primary osteoarthritis of right hip Primary localized osteoarthrosis, pelvic region and thigh Primary osteoarthritis of one hip, right documented [facility]* Diagnosis Hx of total hip arthroplasty, right- Primary [facility] Diagnosis Rheumatoid arthritis, involving unspecified site, unspecified rheumatoid factor presence [facility]* Diagnosis Rheumatoid arthritis involving multiple sites with positive rheumatoid factor (HCC)- Primary 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 [facility]* Diagnosis Rheumatoid arthritis, involving unspecified site, unspecified whether rheumatoid factor present (HCC) [facility]* Diagnosis Rheumatoid arthritis, involving unspecified site, unspecified whether rheumatoid factor present (HCC) [facility]* Diagnosis Rheumatoid arthritis (HCC) [facility]* Diagnosis Hx of total hip arthroplasty, right- Primary [facility] Diagnosis Rheumatoid arthritis involving multiple sites with positive rheumatoid factor (HCC)- Primary Osteoarthritis of cervical spine, unspecified spinal osteoarthritis complication status 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 Encounter for monitoring of etanercept therapy Long-term use of Plaquenil Age-related osteoporosis without current pathological fracture [facility] Diagnosis Rheumatoid arthritis involving multiple sites with positive rheumatoid factor (HCC)- Primary Rheumatoid arthritis, involving unspecified site, unspecified whether rheumatoid factor present (HCC) Age-related osteoporosis without current pathological fracture 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 Long-term use of Plaquenil Encounter for monitoring of etanercept therapy Osteoarthritis, generalized [facility]* Diagnosis Hx of total hip arthroplasty, right- Primary [facility] Diagnosis Rheumatoid arthritis involving multiple sites with positive rheumatoid factor (HCC)- 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 [facility]* Diagnosis Rheumatoid arthritis, involving unspecified site, unspecified whether rheumatoid factor present (HCC) [facility]* Diagnosis Rheumatoid arthritis, involving unspecified site, unspecified whether rheumatoid factor present (HCC) [facility]* Diagnosis Age-related osteoporosis without current pathological fracture- Primary Rheumatoid arthritis involving multiple sites with positive rheumatoid factor (HCC) [facility]* Diagnosis Osteoporosis with current pathological fracture with routine healing, unspecified osteoporosis type, subsequent encounter- Primary [facility]* Diagnosis Right hip pain- Primary Pain in joint, pelvic region and thigh [facility] Diagnosis High risk medication use- Primary [facility] No data available for this section [facility] Progress note No data available for this section [facility] Reason for visit Narrative* Auth/Cert Specialty Diagnoses / Procedures Referred By Clara cunningham Referred To Contact Diagnoses Primary osteoarthritis of right hip Primary osteoarthritis of right hip [M16.11] Procedures NV TOTAL HIP ARTHROPLASTY ARTHROPLASTY HIP TOTAL LATERAL APPROACH Bradford Hussein MD [address] [place] [address] Referral ID Status Reason Start Date Expiration Date Visits Re quested Visits Authorized [id number] 04/18/2022 1 1 [facility] Assessments Diagnosis Seropositive rheumatoid arth ritis (HCC) - Primary Diagnosis Rheumatoid arthritis involvi ng multiple sites, unspecified rheumatoid factor presence (HCC) - Primary Primary osteoarthritis of mireille th hands Diagnosis Rheumatoid arthritis, involv ing unspecified site, unspecified rheumatoid factor presence (HCC) - Primary Primary osteoarthritis of mireille th hands Summary Purpose Family History No Family History Records FoundNo Family History Records FoundNo Family History Records FoundNo Family History Records FoundNo Family History Records FoundNo Family History Records FoundNo Family History Records Found Advance Directives Documents on File Type Date Recorded Patient Education Rep Expl anation Advance Directives and Living Will Documents on File Type Date Recorded Patient Education Rep Expl anation Advance Directives/Living Will 06/19/2022 1:42 PM Latest Code Status on File Code Status Date Activated Date Inactivated Comments Full Code 06/18/2022 10:02 AM History of Present Illness * Ricky Judd LPN - 07/27/2019 2:18 PM EST I received a PA request from [employer] for the pt's Enbrel. The online form was completed and sent in. documented in this encounter* Ricky Judd LPN - 09/15/2019 11:07 AM EDT Pt's Enbrel required a tier exception per [facility]. I called [employer] ([phone]) and talked to Otis. The Tier exception went to pharmacy review. PA # [id number]. documented in this encounter Reason for Referral Specialty Diagnoses / Procedures Referred By Clara cunningham Referred To Contact Radiology Diagnoses Rheumatoid arthritis involving multiple sites with positive rheumatoid factor (HCC) Osteoarthritis of cervical spine with myelopathy Chronic migraine without aura, with intractable migraine, so stated, with status migrainosus Procedures MR Cervical Spine Without Contrast Andrea Ewing MD [address] [place] [address] Referral ID Status Reason Start Date Expiration Date V isits Requested Visits Authorized [id number] New Request 11/15/2021 11/15/2022 1 1 Specialty Diagnoses / Procedures Referred By Clara cunningham Referred To Contact Radiology Diagnoses Age-related osteoporosis without current pathological fracture Procedures XR Bone Density DEXA Axial Andrea Ewing MD [address] [place] [address] Referral ID Status Reason Start Date Expiration Date V isits Requested Visits Authorized [id number] Authorized 11/15/2021 11/15/2022 1 1 Specialty Diagnoses / Procedures Referred By Contac t Referred To Contact Diagnoses Rheumatoid arthritis, involving unspecified site, unspecified whether rheumatoid factor present (HCC) Andrea Ewing MD [address] [place] [address] Referral ID Status Reason Start Date Expiration Date Visits Re quested Visits Authorized [id number] Closed 1 1 Specialty Diagnoses / Procedures Referred By Contac t Referred To Contact Radiology Diagnoses Right hip pain Rheumatoid arthritis involving multiple sites with positive rheumatoid factor (HCC) Procedures MR Hip Right Without Contrast Andrea Ewing MD [address] [place] [address] Referral ID Status Reason Start Date Expiration Date V isits Requested Visits Authorized [id number] Authorized 12/25/2021 12/25/2022 1 1 Specialty Diagnoses / Procedures Referred By Contac t Referred To Contact Rehabilitation Diagnoses Right hip pain Osteoarthritis of cervical spine with myelopathy Bilateral occipital neuralgia Andrea Ewing MD [address] [place] [address] Referral ID Status Reason Start Date Expiration Date V isits Requested Visits Authorized [id number] Authorized 12/25/2021 12/25/2022 1 1 Specialty Diagnoses / Procedures Referred By Contac t Referred To Contact Pain Medicine Diagnoses Right hip pain Osteoarthritis of cervical spine with myelopathy Bilateral occipital neuralgia Andrea Ewing MD [address] [place] [address] Michaela Alarcon MD [address] [place] [address] Referral ID Status Reason Start Date Expiration Date V isits Requested Visits Authorized [id number] Authorized 12/25/2021 12/25/2022 1 1 Specialty Diagnoses / Procedures Referred By Contac t Referred To Contact Diagnoses Cervical spondylosis without myelopathy Michaela Alarcon MD [address] [place] [id number] Referral ID Status Reason Start Date Expiration Date V isits Requested Visits Authorized [id number] New Request 02/07/2022 03/04/2023 1 1 Scheduling Instructions Please PA and schedule: Right Hip Intra-articular Injection Specialty Diagnoses / Procedures Referred By Contac t Referred To Contact Diagnoses Primary osteoarthritis of right hip Procedures XR FL[facility] PAIN MANAGEMENT Michaela Alarcon MD [address] [place] [address] Referral ID Status Reason Start Date Expiration Date V isits Requested Visits Authorized [id number] New Request 03/08/2022 04/02/2023 1 1 Specialty Diagnoses / Procedures Referred By Contac t Referred To Contact Diagnoses Rheumatoid arthritis, involving unspecified site, unspecified whether rheumatoid factor present (HCC) Aftab Love MD [address] [place] [address] Referral ID Status Reason Start Date Expiration Date Visits Re quested Visits Authorized [id number] Closed 1 1 Specialty Diagnoses / Procedures Referred By Contac t Referred To Contact Diagnoses Chronic right hip pain Michaela Alarcon MD [address] [place] [address] Referral ID Status Reason Start Date Expiration Date V isits Requested Visits Authorized [id number] Auth Not Needed 03/21/2022 04/15/2023 1 1 Scheduling Instructions Please PA and schedule: right femoral obturator articulating NB #1 Referral ID Status Reason Start Date Expiration Date V isits Requested Visits Authorized [id number] Auth Not Needed 03/21/2022 04/15/2023 1 1 Scheduling Instructions Please PA and schedule: right femoral obturator articulating NB #2 Specialty Diagnoses / Procedures Referred By Contac t Referred To Contact Diagnoses Right hip pain Procedures XR HIP WITH PELVIS RIGHT Bradford Hussein MD [address] [place] [address] Referral ID Status Reason Start Date Expiration Date V isits Requested Visits Authorized [id number] Pending Review 04/03/2022 04/28/2023 1 1 Specialty Diagnoses / Procedures Referred By Contac t Referred To Contact Diagnoses Hx of total hip arthroplasty, right Procedures XR HIP WITH PELVIS RIGHT Ghanshyam Dye APRN-STUART [address] [place] [address] Referral ID Status Reason Start Date Expiration Date V isits Requested Visits Authorized [id number] New Request 06/28/2022 07/23/2023 1 1 Referral ID Status Reason Start Date Expiration Date V isits Requested Visits Authorized [id number] New Request 07/19/2022 08/13/2023 1 1 Specialty Diagnoses / Procedures Referred By Contac t Referred To Contact Diagnoses Hx of total hip arthroplasty, right Procedures XR HIP WITH PELVIS RIGHT Bradford Hussein MD [address] [place] [address] Referral ID Status Reason Start Date Expiration Date V isits Requested Visits Authorized [id number] New Request 10/11/2022 11/05/2023 1 1 Referral ID Status Reason Start Date Expiration Date Visits Re quested Visits Authorized [id number] Closed 1 1 Referral ID Status Reason Start Date Expiration Date V isits Requested Visits Authorized [id number] New Request 06/13/2023 07/07/2024 1 1 Additional Source Comments INFORMATION SOURCE (unrecogn ized section and content) DATE CREATED AUTHOR AUTHOR'S ORGANIZ ATION 07/14/2019 [facility] DATE CREATED AUTHOR AUTHOR'S ORGANIZ ATION 04/10/2022 [facility] DATE CREATED AUTHOR AUTHOR'S ORGANIZ ATION 06/10/2022 [facility] ([place]) DATE CREATED AUTHOR AUTHOR'S ORGANIZ ATION 06/17/2023 [facility] DATE CREATED AUTHOR [facility] AT[facility] DATE CREATED AUTHOR AUTHOR'S ORGANIZ ATION 07/11/2023 [facility] Care Teams (unrecognized sec tion and content) Patient Sitter Relationship Specialty Start Date End Date Joanne Arnold MD [address] [address] PCP - General Family Medicine 12/19/15 Patient Sitter Relationship Specialty Start Date End Date Joanne Arnold MD [address] [place] [address] PCP - General Family Medicine 12/19/15 Patient Sitter Relationship Specialty Start Date End Date Joanne Arnold MD [address] [place] [address] PCP - General Family Medicine 12/19/15 Patient Sitter Relationship Specialty Start Date End Date Joanne Arnold MD [address] [place] [address] PCP - General Family Medicine 12/19/15 Patient Sitter Relationship Specialty Start Date End Date Joanne Arnold MD [address] [facility] [address] [place] [address] PCP - General Family Medicine 12/19/15 Patient Sitter Relationship Specialty Start Date End Date Joanne Arnold MD [address] [facility] [address] [place] [address] PCP - General Family Medicine 12/19/15 Patient Sitter Relationship Specialty Start Date End Date Joanne Arnold MD [address] [facility] [address] [place] [address] PCP - General Family Medicine 12/19/15 Patient Sitter Relationship Specialty Start Date End Date Joanne Arnold MD [address] [place] [address] PCP - General Family Medicine 12/19/15 Patient Sitter Relationship Specialty Start Date End Date Joanne Arnold MD [address] [place] [address] PCP - General Family Medicine 12/19/15 Patient Sitter Relationship Specialty Start Date End Date Joanne Arnold MD [address] [facility] [address] [place], [place] [address] [phone] - General Family Medicine 12/19/15 Patient Sitter Relationship Specialty Start Date End Date Joanne Arnold MD [address] [facility] [place] [address] PCP - General Family Medicine 03/08/22 Patient Sitter Relationship Specialty Start Date End Date Joanne Arnold MD [address] [facility] [place] [address] PCP - General Family Medicine 03/08/22 Patient Sitter Relationship Specialty Start Date End Date Joanne Arnold MD [address] [facility] [address] [place], [place] [address] [phone] PCP - General Family Medicine 12/19/15 Patient Sitter Relationship Specialty Start Date End Date Joanne Arnold MD [address] [facility] [place] [address] PCP - General Family Medicine 03/08/22 Patient Sitter Relationship Specialty Start Date End Date Joanne Arnold MD [address] [facility] [address] PCP - General Family Medicine 03/08/22 Patient Sitter Relationship Specialty Start Date End Date Joanne Arnold MD [address] [place] [address] PCP - General Family Medicine 03/08/22 Patient Sitter Relationship Specialty Start Date End Date Joanne Arnold MD [address] [place] [address] PCP - General Family Medicine 03/08/22 Patient Sitter Relationship Specialty Start Date End Date Joanne Arnold MD [address] [place] [phone] PCP - General Family Medicine 03/08/22 Patient Sitter Relationship Specialty Start Date End Date Joanne Arnold MD [address] [facility] [address] [place], [place] [phone] PCP - General Family Medicine 12/19/15 Patient Sitter Relationship Specialty Start Date End Date Joanne Arnold MD [address] [facility] [address] [place], [place] [phone] PCP - General Family Medicine 12/19/15 Patient Sitter Relationship Specialty Start Date End Date Joanne Arnold MD [address] [facility] [address] [place], [place] [phone] PCP - General Family Medicine 12/19/15 Patient Sitter Relationship Specialty Start Date End Date Joanne Arnold MD [address] [facility] [address] [place], [place] [address] PCP - General Family Medicine 12/19/15 Patient Sitter Relationship Specialty Start Date End Date Joanne Arnold MD [address] [place] [facility] [place] [phone] PCP - General Family Medicine 03/08/22 Patient Sitter Relationship Specialty Start Date End Date Joanne Arnold MD [address] [facility] [address] [place], [place] [phone] PCP - General Family Medicine 12/19/15 Patient Sitter Relationship Specialty Start Date End Date Joanne Arnold MD [address] [place] [facility] [place] [address] PCP - General Family Medicine 03/08/22 Patient Sitter Relationship Specialty Start Date End Date Joanne Arnold MD [address] [place] [phone] PCP - General Family Medicine 03/08/22 Patient Sitter Relationship Specialty Start Date End Date Joanne Arnold MD [address] [place] [address] PCP - General Family Medicine 12/19/15 Patient Sitter Relationship Specialty Start Date End Date Joanne Arnold MD [address] [place] [address] PCP - General Family Medicine 12/19/15 Patient Sitter Relationship Specialty Start Date End Date Joanne Arnold MD [address] [place] [address] PCP - General Family Medicine 12/19/15 Patient Sitter Relationship Specialty Start Date End Date Joanne Arnold MD [address] [place] [address] PCP - General Family Medicine 12/19/15 Patient Sitter Relationship Specialty Start Date End Date Joanne Arnold MD [address] [place] [address] PCP - General Family Medicine 12/19/15 Patient Sitter Relationship Specialty Start Date End Date Joanne Arnold MD [address] [place] [address] PCP - General Family Medicine 03/08/22 Patient Sitter Relationship Specialty Start Date End Date Joanne Arnold MD [address] [place] [address] PCP - General Family Medicine 12/19/15 Patient Sitter Relationship Specialty Start Date End Date Joanne Arnold MD [address] [place] [place] [address] PCP - General Family Medicine 03/08/22 Reason for Visit (unrecogniz ed section and content) Reason Comments Physical Therapy Specialty Diagnoses / Procedures Referred By Contac t Referred To Contact Rehabilitation Diagnoses Right hip pain Osteoarthritis of cervical spine with myelopathy Bilateral occipital neuralgia Andrea Ewing MD [address] [place] [address] [phone] Referral ID Status Reason Start Date Expiration Date V isits Requested Visits Authorized [id number] Authorized 12/25/2021 12/25/2022 12 199 Specialty Diagnoses / Procedures Referred By Contac t Referred To Contact Rehabilitation Diagnoses Right hip pain Osteoarthritis of cervical spine with myelopathy Bilateral occipital neuralgia Andrea Ewing MD [address] [place] [address] [phone] Reason Comments Pain Specialty Diagnoses / Procedures Referred By Contac t Referred To Contact Diagnoses Primary osteoarthritis of right hip Michaela Alarcon MD [address] [place] [address] Referral ID Status Reason Start Date Expiration Date V isits Requested Visits Authorized [id number] Pending Review 02/07/2022 03/04/2023 1 1 Specialty Diagnoses / Procedures Referred By Contac t Referred To Contact Diagnoses Primary osteoarthritis of right hip Procedures XR FLUORO PAIN MANAGEMENT Michaela Alarcon MD [address] [place] [address] Referral ID Status Reason Start Date Expiration Date V isits Requested Visits Authorized [id number] New Request 03/08/2022 04/02/2023 1 1 Reason Onset Date Comments Medication Refill 03/14/2022 Reason Comments Follow-up Specialty Diagnoses / Procedures Referred By Contac t Referred To Contact Diagnoses Hx of total hip arthroplasty, right Procedures XR HIP WITH PELVIS RIGHT Ghanshyam Dye APRN-CNP [address] [place] [address] Referral ID Status Reason Start Date Expiration Date V isits Requested Visits Authorized [id number] New Request 06/28/2022 07/23/2023 1 1 Reason Comments Post Op Visit Reason Onset Date Comments Medication Refill 12/03/2021 Reason Onset Date Comments Medication Refill 07/19/2022 Reason Onset Date Comments Medication Refill 07/20/2022 Reason Onset Date Comments Medication Refill 08/09/2022 Reason Comments Follow-up Specialty Diagnoses / Procedures Referred By Contac t Referred To Contact Diagnoses Hx of total hip arthroplasty, right Procedures XR HIP WITH PELVIS RIGHT Bradford Hussein MD [address] [place] [address] Referral ID Status Reason Start Date Expiration Date V isits Requested Visits Authorized [id number] New Request 10/11/2022 11/05/2023 1 1 Reason Onset Date Comments Medication Refill 01/07/2023 Reason Onset Date Comments Medication Refill 02/10/2023 Reason Onset Date Comments Medication Refill 03/31/2023 Specialty Diagnoses / Procedures Referred By Contac t Referred To Contact Diagnoses Right hip pain Procedures XR HIP WITH PELVIS RIGHT Bradford Hussein MD [address] [place] [address] Referral ID Status Reason Start Date Expiration Date V isits Requested Visits Authorized [id number] New Request 06/13/2023 07/07/2024 1 1 Reason Comments IV Medication Specialty Diagnoses / Procedures Referred By Contac t Referred To Contact Diagnoses Osteoporosis with current pathological fracture with routine healing, unspecified osteoporosis type, subsequent encounter Procedures NV INJECTION, ZOLEDRONIC ACID, 1 MG Sara Granados, DO [address] [place] [address] [facility] [address] [place] [address] Referral ID Status Reason Start Date Expiration Date V isits Requested Visits Authorized [id number] Authorized 06/09/2023 09/08/2023 1 1 Care Team (unrecognized sect ion and content) Care Team Personnel Name: JOANNE ARNOLD MD Member Role: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 Physician Address: Address: [address] [place] [address] Scheduled Active and Recently Administ ered Medications (unrecognized section and content) Continuous Medication Order 06/17/2022 06/18/2022 06/19/2022 Sodium chloride 0.9% IV solution (CANCELED) Intravenous, at 100 mL/hr, CONTINUOUS, Starting on Fri06/18/22 at 0700, Until Fri06/18/22 at 1633, Pre-op/Pre-Proc 0719 ($$New Bag$$ - Provider: Summer Bellamy RN)0954 ($$New Bag$$ - Provider: Kodi Cox APRN-PRECISION INSTRUMENT MAKER AND REPAIRER)1020 ($$New Bag$$ - Provider: Laxmi Gonzalez RN - Comment: Order per Godwin PRECISION INSTRUMENT MAKER AND REPAIRER to given a fluid bolus) Sodium chloride 0.9% IV solution Intravenous, at 100 mL/hr, CONTINUOUS, Starting on Fri06/18/22 at 1045, Until Fri06/19/22 at 1608, Convert IV to PRN adapter post op day 1 if adequate oral intake, Post-op/Post-Proc 1700 ($$New Bag$$ - Provider: Virginia Miranda RN) 0452 ($$New Bag$$ - Provider: Aretha Cook RN)0459 (Rate/Dose Verify - Provider: Aretha Cook RN)0959 (Rate/Dose Verify - Provider: Renata Kenney LPN) PRN Medication Order 06/17/2022 06/18/2022 06/19/2022 Acetaminophen (TYLENOL) tablet 650 mg 650 mg, Oral, EVERY 4 HOURS NEEDED, Starting on Fri06/18/22 at 1041, Until Fri06/19/22 at 1608, Mild Pain, Maximum dose of acetaminophen is 4000 mg from all sources in 24 hours, Post-op/Post-Proc 1136 (Given - Provid er: Renata Kenney LPN) bisacodyl (DULCOLAX) suppository 10 mg 10 mg, Rectal, DAILY NEEDED, Starting on Fri06/18/22 at 1041, Until Fri06/19/22 at 1608, constipation, Post-op/Post-Proc ceFAZolin (ANCEF) 2 g in dextrose 100 mL premix IVPB (COMPLETED) 2 g, Intravenous, Administer over 30 Minutes, MANAGER MANUFACTURING TO PROCEDURE, 1 dose, Starting on Fri06/18/22 at 0649, Until Fri06/18/22 at 0833, Other, Pre-operative antibiotic, For 15 Minutes, Pre-op/Pre-Proc 0818 (Given - Provider: Kodi Cox, FRAMING CARPENTER-PRECISION INSTRUMENT MAKER AND REPAIRER) hydroCODone-acetaminophen (NORCO) 5-325 MG per tablet 1-2 tablet 1-2 tablet, Oral, EVERY 4 HOURS NEEDED, Starting on Fri06/18/22 at 1041, Until Fri06/19/22 at 1608, Mild Pain, Moderate Pain, , Post-op/Post-Proc 2325 (Given - Provider: Aretha Cook RN) 0444 (Given - Provider: Aretha Cook RN)0636 (Given - Provider: Aretha Cook RN)1035 (Given - Provider: Renata Kenney LPN) HYDROmorphone (DILAUDID) injection 0.5 mg 0.5 mg, Intravenous, EVERY 4 HOURS NEEDED, Starting on Fri06/18/22 at 1041, Until Fri06/19/22 at 1608, Severe Pain, Post-op/Post-Proc Ondansetron 4mg/2ml (ZOFRAN) injection 4 mg 4 mg, Intravenous, EVERY 4 HOURS NEEDED, Starting on Fri06/18/22 at 1041, Until Fri06/19/22 at 1608, Nausea / Vomiting, Post-op/Post-Proc senna-docusate (SENOKOT-S) 8.6-50 MG per tablet 2 tablet 2 tablet, Oral, 2 TIMES DAILY NEEDED, Starting on Fri06/18/22 at 1041, Until Fri06/19/22 at 1608, constipation, Post-op/Post-Proc Sodium chloride 0.9 % irrigation (CANCELED) NEEDED, Starting on Fri06/18/22 at 0843, Until Fri06/18/22 at 1633, Intra-op/Intra-Proc 0843 (Given - Provider: Bradford Hussein MD) sodium phosphate w/sodium biphosphate (FLEETS) enema 1 enema 1 enema, Rectal, DAILY NEEDED, Starting on Fri06/18/22 at 1041, Until Fri06/19/22 at 1608, Refractory Constipation, use per package instructions, Post-op/Post-Proc Vancomycin (VANCOCIN) injection (CANCELED) NEEDED, Starting on Fri06/18/22 at 1000, Until Fri06/18/22 at 1633, Intra-op/Intra-Proc 1000 (Given - Provider: Bradford Hussein MD - Comment: Given to sterile field.) Zolpidem (AMBIEN) tablet 5 mg 5 mg, Oral, DAILY AT BEDTIME NEEDED, Starting on Fri06/18/22 at 1041, Until Fri06/19/22 at 1608, Sleep, Post-op/Post-Proc FOR RECORDS PERTAINING TO PATIENTS WHO ARE OR HAVE BEEN ENROLLED IN A CHEMICAL DEPENDENCY/SUBSTANCEABUSE PROGRAM, SOME INFORMATION MAY BE OMITTED. This clinical summary was aggregated from multiple sources. Caution should be exercised in using it in the provision of clinical care. This summary normalizes information from multiple sources, and as a consequence, information in this document may materially change the coding, format and clinical context of patient data. In addition, data may be omitted in some cases. CLINICAL DECISIONS SHOULD BE BASED ON THE PRIMARY CLINICAL RECORDS. [facility]. provides no warranty or guarantee of the accuracy or completeness of information in this document.
[2023-07-16 15:19] LABS: Absolute Lymphocyte Count 2.32 X10^3/uL (0.83-4.51); Absolute Neutrophil Count 2.7 X10^3/uL (2.0-7.7); Basophil# 0.07 X10^3/uL; Basophil% 1.2 % (0-1); Eosinophil# 0.15 X10^3/uL; Eosinophils% 2.5 % (0-5); Hematocrit 41.8 % (37-47); Hemoglobin 13.2 g/dL (12.0-15.0); Lymphocyte # 2.32 X10^3/ul (0.83-4.51); Lymphocyte % 38.8 % (19-41); Mean Corp Hgb Conc 31.6 g/dL (32-36); Mean Corpuscular Hgb 29.6 pg (27.0-32.0); Mean Corpuscular Volume 93.7 fL (81-99); Mean Platelet Vol. 10.2 fl (6.2-12.0); Monocyte# 0.78 X10^3/uL; NRBC Flagged by Analyzer 0 % (0-5); Neutrophil # 2.65 X10^3/uL (2.7-7.7); Neutrophil % 44.3 % (47-70); Platelet Count 232 K/mm3 (150-450); RBC Distribution Width CV 13.8 % (11.6-14.6); RBC Distribution Width SD 46.8 fl (35.1-43.9); Red Blood Count 4.46 M/mm3 (4.2-5.4)
[2023-07-16 15:33] LABS: Erythrocyte Sedimentation Rate 2 mm/hr (0-30)
[2023-07-16 16:09] LABS: AST(SGOT) 30 U/L (15-37); Alanine Aminotransfer ALT/SGPT 29 U/L (13-56); Albumin, Serum 3.6 g/dL (3.2-5.0); Alkaline Phosphatase 59 U/L (45-117); Bilirubin, Direct 0.13 mg/dL (0.00-0.30); CRP 3.25 mg/L (0.0-3.0); Creatinine, Serum 0.64 mg/dL (0.55-1.02); EST Glomerular Filtration Rate 98 mL/min (>60); Est Glom Filt Rate - Afr Amer 118 mL/min (>60); Globulin 3.3 g/dL (2.2-4.2); Protein, Total 6.9 g/dL (6.4-8.2)
== END | disposition home or self-care (01) ==
PROVIDERS: PCP Family Medicine
DX: Z79.899 Other long term (current) drug therapy (principal)
CPT/HCPCS: 36415; 80076; 82565; 85025; 85652; 86140

== ENCOUNTER → 2023-08-27 | Outpatient (CLI) | payer MEDICARE, OTHER, SELFPAY ==
--- OUTSIDE RECORDS SUMMARY | 2023-08-27 08:19 | XMS RPT_ITS | CCD ---
Author Name Unknown Address [address] [facility] [facility] [address] [place] [address] Organization [facility] Care Team Providers Care Tow Motor Driver Name Role Phone Joanne Arnold Unavailable Sebastian Felder Unavailable Unavailable Sebastian Felder Unavailable Unavailable Jolliff, Joanne Delia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 Provider Joanne Arnold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 Provider [phone] Joanne Arnold MD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 Provider Unavailable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 Provider UnavailJoanne Springer MD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 Provider [phone] ALARCON, MICHAELA Attending Unavailable JOLLIFF, JOANNE S Referring Unavailable JOLLIFF, JOANNE S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 Unavailable ALARCON, MICHAELA Attending Unavailable ALARCON, MICHAELA Referring Unavailable JOLLIFF, JOANNE S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 Unavailable ALARCONAUDIEMICHAELA Attending Unavailable ALARCON, MICHAELA Referring Unavailable JOLLIFF, JOANNE S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 Unavailable ALARCON, MICHAELA Attending Unavailable JOLLIFF, JOANNE S Referring Unavailable JOLLIFF, JOANNE S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 Unavailable Joanne Arnold MD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 Provider [phone] JOANNE ARNOLD MD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 Physician MUKESH RAMIREZ DO Attending Unavailable IDALIA GOMEZ., DR. LOPEZ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 Unavailable Joanne Arnold MD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 Provider Joanne Arnold MD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 Provider JOANNE ARNOLD DELIA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 Unavailable JOLLIFF, JOANNE DELIA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 Unavailable ANDREA EWING Referring Unavailable JOLLIFF, JOANNE DELIA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 Unavailable JOLLIFF, JOANNE DELIA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 Unavailable DARWIN, SARA LOBO Referring Unavailabl e JOLLIFF, JOANNE DELIA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 Unavailable JOLLIFF, JOANNE DELIA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 Unavailable FALLS, SARA LOBO Admitting Unavailabl e FALLS, SARA LOBO Referring Unavailabl e JOLLIFF, JOANNE DELIA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 Unavailable JOLLIFF, JOANNE S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 Unavailable BRADFORD HUSSEIN Attending Unavailable FOSTER, BRADFORD Referring Unavailable SELF, SELF Referring Unavailable ALEXA, GHANSHYAM Attending Unavailable JOLLIFF, JOANNE S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 Unavailable ALEXA, GHANSHYAM Referring Unavailable JOLLIFF, JOANNE S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 Unavailable ALEXA, GHANSHYAM Attending Unavailable JOLLIFF, JOANNE S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 Unavailable JOVITA, BRADFORD Attending Unavailable FOSTER, BRADFORD Referring Unavailable JOLLIFF, JOANNE S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 Unavailable SELF, SELF Referring Unavailable FOSTER, BRADFORD Attending Unavailable JOLLIFF, JOANNE S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 Unavailable SELF, SELF Referring Unavailable ALEXA, GHANSHYAM Attending Unavailable IGOE, ANDREA ABREU Attending Unavailable JOLLIFF, JOANNE DELIA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 Unavailable JOLLIFF, JOANNE DELIA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 Unavailable FALLS, SARA LOBO Attending Unavailabl e JOLLIFF, JOANNE DELIA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 Unavailable FALLS, SARA LOBO Attending Unavailabl e FALLS, SARA LOBO Attending Unavailabl e JOLLIFF, JOANNE DELIA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 Unavailable IGOE, ANDREA ABREU Attending Unavailable JOLLIFF, JOANNE DELIA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 Unavailable IGOE, ANDREA ABREU Attending Unavailable JOLLIFF, JOANNE DELIA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 Unavailable FALLS, SARA LOBO Attending Unavailabl e JOLLIFF, JOANNE DELIA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 Unavailable Allergies Allergy Classification Reported Allergen(s) Allergy Type Date of Onset Reaction(s) Facility (20 sources) atropine / diphenoxylate; Translations: [DIPHENOXYLATE- ATROPINE] Propensity to adverse reactions to drug 6 GI Intolerance, Diarrhea [facility] Work Phone: (20 sources) diclofenac; Translations: [DICLOFENAC] Propensity to adverse reactions to drug 6 GI Intolerance, Diarrhea [facility] Work Phone: (11 sources) Etodolac Drug Allergy [address] [facility] (3 sources) Etodolac Propensity to adverse reactions to drug [address] 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] Onset: 10-04-2022 [...] 06-19-2022 Resolved: 06-19-2022 06-19-2022 Unclassified (1 source) 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; Translations: [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] Onset: 10-04-2022 Results Test Name Value Interpretation Reference Range Facil ity Vital Signs Date Time Vital Sign Value Performing Clinician Facility 07-02-2023 09:12-0500 Body temperature 98.2 [degF] [facility] 07-02-2023 09:12-0500 Diastolic blood pressure 83 mm[Hg] [facility] 07-02-2023 09:12-0500 Heart rate 73 /min [facility] 07-02-2023 09:12-0500 SaO2% (BldA) [Mass fraction] 96 % [facility] 07-02-2023 09:12-0500 Systolic blood pressure 149 mm[Hg] [facility] 07-02-2023 09:06-0500 Body mass index (BMI) [Ratio] 25.97 kg/m2 [facility] 07-02-2023 09:06-0500 Body weight 60.33 kg [facility] 06-19-2023 09:48-0500 Body height 152.4 cm Bradford Hussein MD Work Phone: [facility] 06-19-2023 09:48-0500 Body mass index (BMI) [Ratio] 26.17 kg/m2 Bradford Hussein MD Work Phone: [facility] 06-19-2023 09:48-0500 Body temperature 98.2 [degF] Bradford Hussein MD Work Phone: [facility] 06-19-2023 09:48-0500 Body weight 60.78 kg Bradford Hussein MD Work Phone: [facility] 06-06-2023 13:05-0500 Body mass index (BMI) [Ratio] 27.3 kg/m2 Sara Falls DO Work Phone: [facility] 06-06-2023 13:05-0500 Body weight 63.41 kg Sara Falls DO Work Phone: [facility] 06-06-2023 13:05-0500 Diastolic blood pressure 84 mm[Hg] Sara Falls DO Work Phone: [facility] 06-06-2023 13:05-0500 Heart rate 69 /min Sara Falls DO Work Phone: [facility] 06-06-2023 13:05-0500 Systolic blood pressure 130 mm[Hg] Sara Granados DO Work Phone: [facility] 10-17-2022 11:03-0400 Body height 152.4 cm Bradford Hussein MD Work Phone: [facility] 10-17-2022 11:03-0400 Body mass index (BMI) [Ratio] 26.76 kg/m2 Bradford Hussein MD Work Phone: [facility] 10-17-2022 11:03-0400 Body weight 62.14 kg Bradford Hussein MD Work Phone: [facility] 10-08-2022 09:55-0400 Body mass index (BMI) [Ratio] 27.15 kg/m2 Andrea Ewing MD Work Phone: [facility] 10-08-2022 09:55-0400 Body weight 63.05 kg Andrea Ewing MD Work Phone: [facility] 10-08-2022 09:55-0400 Diastolic blood pressure 85 mm[Hg] Andrea Ewing MD Work Phone: [facility] 10-08-2022 09:55-0400 Heart rate 71 /min Andrea Ewing MD Work Phone: [facility] 10-08-2022 09:55-0400 Systolic blood pressure 137 mm[Hg] Andrea Ewing MD Work Phone: [facility] 07-31-2022 09:37-0500 Body height 152.4 cm Ghanshyam Dye APRN-WAREHOUSE SHIPPING CLERK Work Phone: [facility] 07-31-2022 09:37-0500 Body mass index (BMI) [Ratio] 26.76 kg/m2 Ghanshyam Dye APRN-WAREHOUSE SHIPPING CLERK Work Phone: [facility] 07-31-2022 09:37-0500 Body temperature 96.6 [degF] Ghanshyam Dye APRN-WAREHOUSE SHIPPING CLERK Work Phone: [facility] 07-31-2022 09:37-0500 Body weight 62.14 kg Ghanshyam Alexa ZIPPER SETTER CHAINSTITCH-WAREHOUSE SHIPPING CLERK Work Phone: [employer] [facility] 07-10-2022 11:29-0500 Body height 152.4 cm Ghanshyam Dye ZIPPER SETTER CHAINSTITCH-WAREHOUSE SHIPPING CLERK Work Phone: [employer] 07-10-2022 11:29-0500 Body mass index (BMI) [Ratio] 26.76 kg/m2 Ghanshyam Dye ZIPPER SETTER CHAINSTITCH-WAREHOUSE SHIPPING CLERK Work Phone: [employer] 07-10-2022 11:29-0500 Body temperature 98.1 [degF] Ghanshyam Dye ZIPPER SETTER CHAINSTITCH-WAREHOUSE SHIPPING CLERK Work Phone: [employer] 07-10-2022 11:29-0500 Body weight 62.14 kg Ghanshyam Dye ZIPPER SETTER CHAINSTITCH-WAREHOUSE SHIPPING CLERK Work Phone: [facility] [facility] 06-19-2022 07:45-0500 SaO2% (BldA) [Mass fraction] 97 % Bradford Hussein MD Work Phone: [employer] 06-19-2022 07:30-0500 Body temperature 98.8 [degF] Bradford Hussein MD Work Phone: [employer] 06-19-2022 07:30-0500 Diastolic blood pressure 59 mm[Hg] Bradford Hussein MD Work Phone: [employer] 06-19-2022 07:30-0500 Heart rate 74 /min Bradford Hussein MD Work Phone: [employer] 06-19-2022 07:30-0500 Respiratory rate 18 /min Bradford Hussein MD Work Phone: [employer] 06-19-2022 07:30-0500 Systolic blood pressure 103 mm[Hg] Bradford Hussein MD Work Phone: [facility] [facility] 06-19-2022 03:52-0500 Body mass index (BMI) [Ratio] 31.99 kg/m2 Bradford Hussein MD Work Phone: [employer] 06-19-2022 03:52-0500 Body weight 74.3 kg Bradford Hussein MD Work Phone: [facility] [employer] 06-18-2022 16:20-0500 Body height 152.4 cm Bradford Hussein MD Work Phone: [facility] 04-10-2022 14:45-0400 Body height 152.5 cm Bradford Hussein MD Work Phone: [facility] 04-10-2022 14:45-0400 Body mass index (BMI) [Ratio] 26.56 kg/m2 Bradford Hussein MD Work Phone: [facility] 04-10-2022 14:45-0400 Body temperature 96.8 [degF] Bradford Hussein MD Work Phone: [facility] 04-10-2022 14:45-0400 Body weight 61.78 kg Bradford Hussein MD Work Phone: [facility] 03-21-2022 10:17-0400 Body height 152.4 cm Michaela Alarcon MD Work Phone: [facility] 03-21-2022 10:17-0400 Body mass index (BMI) [Ratio] 26.17 kg/m2 Michaela Alarcon MD Work Phone: [facility] 03-21-2022 10:17-0400 Body weight 60.78 kg Michaela Alarcon MD Work Phone: [facility] 03-21-2022 10:17-0400 Diastolic blood pressure 86 mm[Hg] Michaela Alarcon MD Work Phone: [facility] 03-21-2022 10:17-0400 Heart rate 66 /min Michaela Alarcon MD Work Phone: [facility] 03-21-2022 10:17-0400 Respiratory rate 18 /min Michaela Alarcon MD Work Phone: [facility] 03-21-2022 10:17-0400 SaO2% (BldA) [Mass fraction] 95 % Michaela Alarcon MD Work Phone: [facility] 03-21-2022 10:17-0400 Systolic blood pressure 156 mm[Hg] Michaela Alarcon MD Work Phone: [facility] 03-08-2022 09:24-0400 Diastolic blood pressure 86 mm[Hg] Michaela Alarcon MD Work Phone: [facility] 03-08-2022 09:24-0400 Heart rate 58 /min Michaela Alarcon MD Work Phone: [facility] 03-08-2022 09:24-0400 Respiratory rate 18 /min Michaela Alarcon MD Work Phone: [facility] 03-08-2022 09:24-0400 SaO2% (BldA) [Mass fraction] 95 % Michaela Alarcon MD Work Phone: [facility] 03-08-2022 09:24-0400 Systolic blood pressure 145 mm[Hg] Michaela Alarcon MD Work Phone: [facility] 02-07-2022 14:25-0400 Body height 153.7 cm Michaela Alarcon MD Work Phone: [facility] 02-07-2022 14:25-0400 Body mass index (BMI) [Ratio] 25.74 kg/m2 Michaela Alarcon MD Work Phone: [facility] 02-07-2022 14:25-0400 Body weight 60.78 kg Michaela Alarcon MD Work Phone: [facility] 02-07-2022 14:25-0400 Diastolic blood pressure 69 mm[Hg] Michaela Alarcon MD Work Phone: [facility] 02-07-2022 14:25-0400 Heart rate 68 /min Michaela Alarcon MD Work Phone: [facility] 02-07-2022 14:25-0400 Respiratory rate 15 /min Michaela Alarcon MD Work Phone: [facility] 02-07-2022 14:25-0400 SaO2% (BldA) [Mass fraction] 94 % Michaela Alarcon MD Work Phone: [facility] 02-07-2022 14:25-0400 Systolic blood pressure 102 mm[Hg] Michaela Alarcon MD Work Phone: [facility] 11-27-2021 14:04-0400 Body mass index (BMI) [Ratio] 25.78 kg/m2 Andrea Ewing MD Work Phone: [facility] 11-27-2021 14:04-0400 Body weight 59.88 kg Andrea Ewing MD Work Phone: [facility] 11-27-2021 14:04-0400 Diastolic blood pressure 80 mm[Hg] Andrea Ewing MD Work Phone: [facility] 11-27-2021 14:04-0400 Heart rate 74 /min Andrea Ewing MD Work Phone: [facility] 11-27-2021 14:04-0400 Systolic blood pressure 123 mm[Hg] Andrea Ewing MD Work Phone: [facility] 03-04-2018 09:01-0400 BMI (Body Mass Index) 24.69 kg/m2 [facility] 03-04-2018 09:01-0400 BP Diastolic 83 mm[Hg] [facility] 03-04-2018 09:01-0400 BP Systolic 145 mm[Hg] [facility] 03-04-2018 09:01-0400 Pulse (Heart Rate) 70 /min [facility] 03-04-2018 09:01-0400 Weight 57.34 kg [facility] 09-01-2017 10:10-0500 BMI (Body Mass Index) 24.94 kg/m2 [facility] 09-01-2017 10:10-0500 BP Diastolic 84 mm[Hg] [facility] 09-01-2017 10:10-0500 BP Systolic 145 mm[Hg] [facility] 09-01-2017 10:10-0500 Pulse (Heart Rate) 71 /min [facility] 09-01-2017 10:10-0500 Weight 57.92 kg [facility] 05-01-2017 08:59-0400 BMI (Body Mass Index) 23.85 kg/m2 Gerardo Whipple [facility] Work Phone: 05-01-2017 08:59-0400 BP Diastolic 86 mm[Hg] Gerardo Whipple [facility] Work Phone: 05-01-2017 08:59-0400 BP Systolic 145 mm[Hg] Gerardo Whipple [facility] Work Phone: 05-01-2017 08:59-0400 Height 152.4 cm Gerardo Whipple [facility] Work Phone: 05-01-2017 08:59-0400 Pulse (Heart Rate) 79 /min Gerardo Whipple [facility] Work Phone: 05-01-2017 08:59-0400 Weight 55.38 kg Gerardo hWipple [facility] Work Phone: Encounters Encounter Date Encounter Type Care Provider Facility Start: 08-05-2023 Refill Sara Granados DO Work Phone: [facility] Procedures Date Procedure Procedure Detail Performing Clinician Start: 07-02-2023 Creatinine blood Sara Granados DO Work Phone: Start: 06-19-2022 Complete blood count with white cell differential, automated Ghanshyam Dye [employer] Work Phone: Start: 06-18-2022 Blood count hematocrit Rohini Jones Work Phone: Start: 06-18-2022 Blood count hematocrit Rohini Fela Jones Work Phone: Start: 06-18-2022 Gluc bld gluc mntr d ev cleared fda spec home use Bradford Hussein MD Work Phone: Start: 06-18-2022 Radiologic examinati on pelvis 1/2 views Ghanshyam Dye APRN-WAREHOUSE SHIPPING CLERK Work Phone: Start: 06-18-2022 End: 06-18-2022 Arthrp [...] procedure 10/08/2023 8:30 AM EDT Office Visit [facility] [address] [place] [phone] Andrea Ewing MD [address] [place] [id number] [facility] Start: 09-05-2023 End: 09-05-2023 Patient encounter procedure 09/05/2023 10:45 AM EST Office Visit [facility] [address] [place] [phone] Sara Granados DO [address] [place] [id number] [facility] Start: 07-02-2023 End: 07-02-2023 ambulatory 07/02/2023 9:00 AM EST Infusion/Injection [facility] Escort Car Driver [address] [place] [phone] [facility] [employer] Start: 06-18-2023 End: 06-18-2023 Patient encounter procedure 06/18/2023 Office Visit Orthopaedics Ghanshyam Dye, ZIPPER SETTER CHAINSTITCH-WAREHOUSE SHIPPING CLERK [address] [place] [address] [facility] Start: 02-28-2023 COVID-19 VACCINE ( season) COVID-19 VACCINE ( season) [facility] Start: 02-28-2023 Influenza vaccination Sequential Influenza Vaccine (#1) [facility] Start: 10-17-2022 End: 10-17-2022 Patient encounter procedure 10/17/2022 Office Visit Orthopaedics Bradford Hussein MD [address] [place] [id number] [facility] Start: 09-06-2022 Screening for malignant neoplasm of breast Mammogram [facility] Start: 08-29-2022 Tetanus vaccination [facility] Start: 08-21-2022 End: 08-21-2022 Patient encounter procedure 08/21/2022 Office Visit Orthopedic Surgery Andrea Ewing MD [address] [place] [address] [facility] Start: 07-31-2022 End: 07-31-2022 Patient encounter procedure 07/31/2022 Office Visit Orthopaedics Ghanshyam Dye, ZIPPER SETTER CHAINSTITCH-WAREHOUSE SHIPPING CLERK [address] [place] [address] [facility] Start: 07-10-2022 End: 07-10-2022 Patient encounter procedure 07/10/2022 Office Visit Orthopaedics Ghanshyam Dye, ZIPPER SETTER CHAINSTITCH-WAREHOUSE SHIPPING CLERK [address] [place] [address] [facility] Start: 05-02-2022 End: 05-02-2022 Patient encounter procedure 05/02/2022 Office Visit Anesthesiology Pain Mgt Michaela Alarcon MD [address] [place] [address] [facility] Start: 04-30-2022 End: 04-30-2022 Patient encounter procedure 04/30/2022 Office Visit Anesthesiology Pain Mgt Michaela Alarcon MD [address] [place], [place] [phone] [facility] Procedural Pain Management Start: 04-25-2022 End: 04-25-2022 ambulatory 04/25/2022 Pre-Operative Nurse Assessment Internal Medicine [facility] Pre Admission Start: 04-18-2022 End: 04-18-2022 Patient encounter procedure 04/18/2022 Office Visit Anesthesiology Pain Michaela Lyle MD [address] [place] [address] [facility] Start: 04-15-2022 End: 04-15-2022 Patient encounter procedure 04/15/2022 Office Visit Anesthesiology Pain Michaela Lyle MD [address] [place], [place] [phone] [facility] Procedural Pain Management Start: 03-21-2022 End: 03-21-2022 Patient encounter procedure 03/21/2022 Office Visit Anesthesiology Pain Michaela Lyle MD [address] [place] [address] [facility] Start: 03-08-2022 End: 03-08-2023 Fluoroscopy guided nasogastric tube procedure [facility] Immunizations Immunization Date Immunization Notes Care Provider Fa cili 06-15-2021 influenza virus vaccine, unspecified formulation Michaela Alarcon MD Work Phone: [facility] Payers Date Payer Category Payer Private Health Insurance [id number] 2021 Unknown [id number] 2020 Medicare [id number] 2020 Medicare [id number] 2014 Unknown xxxxxxxxxxxxxx [id number] 2014 Unknown [id number] [id number] 2014 Unknown [employer] BCBS OUT OF STATE [facility] [id number] 2014-Present [id number]. [id number] 1955 Unknown [id number] 2.16.840.1.517774.3.579.2.98 3 1955 Unknown [id number] 2.16.840.1.319096.3.579.2.98 3 1955 Unknown [id number] 2.16.840.1.749459.3.579.2.98 3 1955 Unknown [id number] 2.16.840.1.574070.3.579.2.98 3 1955 Unknown [id number] 2.16.840.1.638805.3.579.2.62 7 1955 Unknown [id number] 2.16.840.1.477075.3.579.2.90 3 1955 Unknown [id number] 2.16.840.1.153173.3.579.2.90 3 1955 Unknown [id number] 2.16.840.1.423110.3.579.2.90 3 1955 Unknown [id number] 2.16.840.1.860938.3.579.2.90 3 1955 Unknown [id number] 2.16.840.1.839655.3.579.2.90 3 1955 Unknown [id number] 2.16.840.1.569922.3.579.2.90 3 1955 Unknown [id number] 2.16.840.1.395689.3.579.2.90 3 1955 Unknown [id number] 2.16.840.1.390177.3.579.2.98 3 1955 Unknown [id number] 2.16.840.1.454017.3.579.2.98 3 1955 Unknown [id number] 2.16.840.1.473238.3.579.2.98 3 1955 Unknown [id number] 2.16.840.1.899029.3.579.2.98 3 1955 Unknown [id number] 2.16.840.1.888383.3.579.2.98 3 1955 Unknown [id number] 2.16.840.1.789949.3.579.2.98 3 1955 Unknown [id number] 2.16.840.1.355680.3.579.2.90 3 1955 Unknown [id number] 2.16.840.1.766907.3.579.2.90 3 1955 Unknown [id number] 2.16.840.1.072926.3.579.2.90 3 1955 Unknown [id number] 2.16.840.1.777740.3.579.2.90 3 1955 Unknown [id number] 2.16.840.1.049231.3.579.2.90 3 1955 Unknown [id number] 2.16.840.1.135347.3.579.2.90 3 1955 Unknown [id number] 2.16.840.1.698813.3.579.2.90 3 Private Health Insurance [employer] [id number] Effective for all dates [phone] [address] [address] [place] [address] [id number]. [id number] Social History Date Type Detail Facility Start: 09-01-2017 End: 11-22-2021 Tobacco smoking status NHIS Never smoker [facility] Work Phone: Start: 1955 Sex Assigned At Not on file [facility] Work Phone: Start: 03-24-2019 End: 07-02-2023 Alcohol intake Current non-drinker of alcohol (finding) [facility] Start: 03-24-2019 End: 11-22-2021 Tobacco use and exposure Never used [facility] Start: 12-19-2015 End: 07-02-2023 Cigarette pack-years [facility] Start: 11-05-2021 End: 11-15-2021 Exposure to SARS-CoV-2 (event) Unable to assess [facility] Start: 11-11-2021 End: 10-07-2022 Exposure to SARS-CoV-2 (event) Not sure [facility] Tobacco smoking stat us WIIS Tobacco smoking consumption unknown [facility] Start: 04-10-2022 End: 05-14-2022 Tobacco smoking status NHIS Ex-smoker [facility] History of tobacco use Current smoker [facility] History of tobacco use Cigarette Smoker [facility] History of tobacco use Passive smoker [facility] Start: 04-10-2022 End: 06-19-2023 Alcohol intake Lifetime non-drinker (finding) [facility] Tobacco smoking status No Smokin g Status Entered [facility] Sex Assigned At Female [facility] Start: 05-14-2022 Tobacco Comment Quit 20+ yrs ago [facility] Start: 12-25-2021 End: 07-02-2023 Tobacco use panel [facility] Start: 09-23-2018 Gender identity Identifies as female gender (finding) [facility] Start: 09-23-2018 Sexual orientation Heterosexual (finding) [facility] Medical Equipment Procedure Code Equipment Code Equipment Origin al Text Equipment Identifier Dates [employer] amic Femoral Head +5.0 [id number] Start: 06-18-2022 Clinical Notes 11-15-2021 to 08-06-2023 Telephone Encounter - Sara Granados DO - 08/06/2023 11:38 AM ESTTelephone Encounter - Sara Granados DO - 08/06/2023 11:38 AM Nanci Collado RN - 07/02/2023 11:49 AM EST Note Date & Type Note Facility 08-06-2023 Telephone encounter Note Labs reviewed in media. Sending methotrexate. [facility] 08-06-2023 Miscellaneous Notes Labs reviewed in media. Sending methotrexate. Please have patient get updated labs for the methotrexate. I can refill the folic acid and hydroxychloroquine. Rheumatology Refill Request Follow-up scheduled? [x]Yes []No Labs at [facility]: Lab Results Component Value Date WBC 5.55 03/31/2023 HGB 13.8 03/31/2023 HCT 42.3 03/31/2023 MCV 95.3 03/31/2023 PLT 196 03/31/2023 RBC 4.44 03/31/2023 Lab Results Component Value Date CREATININE 0.72 07/02/2023 Lab Results Component Value Date ALT 41 03/31/2023 AST 32 03/31/2023 ALKPHOS 88 07/19/2022 BILITOT 0.5 07/19/2022 Location of labs outside of [facility]: []CareEverywhere [x]Scanned into Media []N/A For hydroxychloroquine only: Eye exam within the last 12 months? [x]Yes []No []N/A NOTE: documented in this encounter [facility] 08-05-2023 Telephone encounter Note Please have patient get updated labs for the methotrexate. I can refill the folic acid and hydroxychloroquine. [facility] 08-05-2023 Telephone encounter Note Rheumatology Refill Request Follow-up scheduled? [x]Yes []No Labs at [facility]: Lab Results Component Value Date WBC 5.55 03/31/2023 HGB 13.8 03/31/2023 HCT 42.3 03/31/2023 MCV 95.3 03/31/2023 PLT 196 03/31/2023 RBC 4.44 03/31/2023 Lab Results Component Value Date CREATININE 0.72 07/02/2023 Lab Results Component Value Date ALT 41 03/31/2023 AST 32 03/31/2023 ALKPHOS 88 07/19/2022 BILITOT 0.5 07/19/2022 Location of labs outside of [facility]: []CareEverywhere [x]Scanned into Media []N/A For hydroxychloroquine only: Eye exam within the last 12 months? [x]Yes []No []N/A NOTE: [facility] 07-02-2023 History of Present illness Narrative No reaction noted, discharged patient off of [facility] ambulatory IVPB Reclast completed, flushed line with NS, tolerated well IVPB Reclast initiated via pump, tolerating well documented in this encounter [facility] 06-19-2023 History of Present illness Narrative Ortho Nurse - Established Patient Intake Room#: 2 --- 1 yr follow-up for R THR. Pt rates her pain at a 0 today and stated hip is feeling great. Date: 06/19/2023 9:50 AM Patient: Heidi Mcintosh MR#: [id number] : 1955 Age: 68 y.o. Referring Physician: [...] Arthritis Chronic rheumatic arthritis Essential hypertension, benign SC (myocardial infarction) stress SC, 05/2021 Migraine Pulmonary embolism Past Surgical History: [...] by mouth 2 times daily with meals. ZJCVPNL-HTXSVOMOB-PTJG PO Take by mouth daily. Celecoxib 200 [...] tablet Take 1 tablet by mouth daily. Taconite-3 Fatty Acids (Fish Oil) 1000 MG capsule [...] 06/19/2023 9:50 AM Patient: Heidi Mcintosh MR#: [id number] : 1955 Age: 68 y.o. Referring Physician: [...] Arthritis Chronic rheumatic arthritis Essential hypertension, benign SC (myocardial infarction) stress SC, 05/2021 Migraine Pulmonary embolism Past Surgical History: [...] by mouth 2 times daily with meals. HSFJPXE-WUFQIJMCK-TETS PO Take by mouth daily. Celecoxib 200 [...] tablet Take 1 tablet by mouth daily. Taconite-3 Fatty Acids (Fish Oil) 1000 MG capsule [...] diclofenac, and diphenoxylate-atropine. documented in this encounter [facility] 06-10-2023 History of Present illness Narrative For future Enbrel PA's do not do under tier exception. PA has been approved but denied for tier exception. See attached approval/denial letter. Pt.'s Enbrel required a PA, the online form was completed and submitted through [employer] documented in this encounter [facility] 06-06-2023 History of Present illness Narrative Images from the original note were not included. RHEUMATOLOGY FOLLOW-UP VISIT Patient Name: Heidi Mcintosh : 1955 Medical Record: [id number] PCP: Joanne Arnold MD Referring provider: REASON [...] any questions or concerns. Sara Granados DO [facility] [address] [place] [address] O: [phone] F: [phone] The above recommendations were discussed with the patient who understands and agrees with the plan. Portions of this note were created with [employer]. Every effort was made to [...] 2022. RA diagnosed in the late s/early s. Also saw Dr. Lemuel Sadler who diagnosed RA at [facility], Dr. Gerardo Khan at [facility] who moved to [place], and Dr. Shannon Gonzalez at [facility]. Serologies DANNIE negative RF/CCP positive Pertinent imaging/pathology [...] doing (0-10)? 3.0 documented in this encounter [facility] 06-06-2023 History of Present illness Narrative Images from the original note were not included. RHEUMATOLOGY FOLLOW-UP VISIT Patient Name: Heidi Mcintosh : 1955 Medical Record: [id number] PCP: Joanne Arnold MD Referring provider: REASON [...] sent in. Continue hydroxychloroquine 400 mg weekly. ADDENDUM 07/27/23: correcting dosage to hydroxychloroquine 400mg daily. High risk medication use Advised patient to [...] any questions or concerns. Sara Granados DO [facility] [address] [place] [address] O: [phone] F: [phone] The above recommendations were discussed with the patient who understands and agrees with the plan. Portions of this note were created with [employer]. Every effort was made to [...] September 2022. RA diagnosed in the late 90s/early 1999's. Also saw Dr. Lemuel Sadler who diagnosed RA at [facility], Dr. Gerardo Khan at [facility] who moved to [place], and Dr. Shannon Gonzalez at [facility]. Serologies DANNIE negative RF/CCP positive Pertinent imaging/pathology [...] doing (0-10)? 3.0 documented in this encounter [facility] 10-17-2022 History of Present illness Narrative Ortho Nurse - Established Patient Intake Room#: 2 4 month Right STEPHANIE A/L, denies pain, doing great Date: 10/17/2022 11:05 AM Patient: Heidi Mcintosh MR#: [id number] : 1955 Age: 67 y.o. Referring Physician: [...] Arthritis Chronic rheumatic arthritis Essential hypertension, benign SC (myocardial infarction) stress SC, 05/2021 Migraine Pulmonary embolism Past Surgical History: [...] by mouth 2 times daily with meals. KIYLXRQ-CFZMAEPBM-QXBX PO Take by mouth daily. Etanercept (Enbrel) [...] tablet Take 1 tablet by mouth daily. Taconite-3 Fatty Acids (Fish Oil) 1000 MG capsule [...] times daily with meals., Disp: , Rfl: VLZCUBS-WNZEMKXDG-BXAA PO, Take by mouth daily., Disp: , [...] tablet by mouth daily., Disp: , Rfl: Taconite-3 Fatty Acids (Fish Oil) 1000 MG capsule, [...] 10/17/2022 11:05 AM Patient: Heidi Mcintosh MR#: [id number] : 1955 Age: 67 y.o. Referring Physician: [...] Arthritis Chronic rheumatic arthritis Essential hypertension, benign SC (myocardial infarction) stress SC, 05/2021 Migraine Pulmonary embolism Past Surgical History: [...] by mouth 2 times daily with meals. BXYDHBO-HYGXBGYKF-ZKIO PO Take by mouth daily. Etanercept (Enbrel) [...] tablet Take 1 tablet by mouth daily. Taconite-3 Fatty Acids (Fish Oil) 1000 MG capsule [...] times daily with meals., Disp: , Rfl: KORBDFV-TAFHTFGAX-LLJM PO, Take by mouth daily., Disp: , [...] tablet by mouth daily., Disp: , Rfl: Taconite-3 Fatty Acids (Fish Oil) 1000 MG capsule, [...] diclofenac, and diphenoxylate-atropine. documented in this encounter [facility] 10-08-2022 History of Present illness Narrative Per Dr. Ewing I gave the pt bilateral gluteus darcy injection, [...] appts: Dr. Lemuel Sadler Dx her at [facility] Dr. Gerardo Khan at [facility] -> Dr moved to [place] Former Dr. 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 90 tablet 3 GLUC HCL/CSANA/GLY-AM-GLY,MX/C (JSWIGWAO-SZAYZBEWTB-YQ GLYCN-C ORAL) Take by mouth. hydrOXYchloroQUINE (PLAQUENIL) [...] migraines -To continue with Botox and RFA FCI methotrexate user - Plan: Q3 labs at [facility] labs - Explained to patient that we [...] should receive a 3rd dose of the Magnasense or moderna 72798.com Covid vaccine. 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 Andrea Ewing MD Stock Or Delivery Clerk Senior Advisory Note: To expedite correspondence this note was generated by Dragon voice recognition software. Some grammatical or spelling errors may occur using the system. documented in this encounter [facility] 08-21-2022 History of Present illness Narrative [...] there are inherent diagnostic limitations compared to lewp-rb-qkem evaluations. We elected to proceed with the [...] appts: Dr. Lemuel Sadler Dx her at [facility] Dr. Gerardo Khan at [facility] -> Dr moved to [place] Former Dr. 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 labs - Explained to patient that we [...] should receive a 3rd dose of the Magnasense or moderna 72798.com Covid vaccine. 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 Andrea Ewing MD Stock Or Delivery Clerk Senior Advisory Note: To expedite correspondence this note was generated by Nexi voice recognition software. Some grammatical or spelling errors may occur using the system. documented in this encounter [facility] 07-31-2022 History of Present illness Narrative Ortho Nurse - Established Patient Intake Room#: 4 Date: 07/31/2022 9:38 AM Patient: Heidi Mcintosh MR#: [id number] : 1955 Age: 67 y.o. R STEPHANIE [...] Arthritis Chronic rheumatic arthritis Essential hypertension, benign SC (myocardial infarction) stress SC, 05/2021 Migraine Pulmonary embolism Past Surgical History: [...] by mouth 2 times daily with meals. YKKBUHA-PYITUHNBS-GTLG PO Take by mouth daily. Celecoxib 200 [...] tablet Take 1 tablet by mouth daily. Taconite-3 Fatty Acids (Fish Oil) 1000 MG capsule [...] times daily with meals., Disp: , Rfl: ZQZFZMZ-BRVPOJAQV-DIGU PO, Take by mouth daily., Disp: , [...] tablet by mouth daily., Disp: , Rfl: Taconite-3 Fatty Acids (Fish Oil) 1000 MG capsule, [...] SUBJECTIVE: Heidi is an established patient of [facility]. She is here today for followup. She [...] any questions or concerns in the meantime. ([id number]) I have reviewed the findings of the clinical network and threat support specialist and agree with their assessment. Ghanshyam Dye APRN-STUART Ortho Nurse - Established Patient Intake Room#: 4 Date: 07/31/2022 9:38 AM Patient: Heidi Mcintosh MR#: [id number] : 1955 Age: 67 y.o. R STEPHANIE [...] Arthritis Chronic rheumatic arthritis Essential hypertension, benign SC (myocardial infarction) stress SC, 05/2021 Migraine Pulmonary embolism Past Surgical History: [...] by mouth 2 times daily with meals. PUEFLWR-AYNTRAMLO-WRII PO Take by mouth daily. Celecoxib 200 [...] tablet Take 1 tablet by mouth daily. Taconite-3 Fatty Acids (Fish Oil) 1000 MG capsule [...] times daily with meals., Disp: , Rfl: YURTJCC-NUBDYZJVJ-CRSM PO, Take by mouth daily., Disp: , [...] tablet by mouth daily., Disp: , Rfl: Taconite-3 Fatty Acids (Fish Oil) 1000 MG capsule, [...] diclofenac, and diphenoxylate-atropine. documented in this encounter [facility] 07-19-2022 Telephone encounter Note Pt had labs done 07-19 [facility] 07-19-2022 Miscellaneous Notes Pt had labs done 07-19 documented in this encounter [facility] 07-10-2022 History of Present illness Narrative [...] usually once daily. Her pain today is 3-10. Patient: Heidi Mcintosh MR#: [id number] : 1955 Age: 67 y.o. Referring Physician: [...] Arthritis Chronic rheumatic arthritis Essential hypertension, benign SC (myocardial infarction) stress SC, 05/2021 Migraine Pulmonary embolism Past Surgical History: [...] by mouth 2 times daily with meals. TGOPSCT-EBBCENOTU-ZVUT PO Take by mouth daily. Celecoxib 200 [...] tablet Take 1 tablet by mouth daily. Taconite-3 Fatty Acids (Fish Oil) 1000 MG capsule [...] times daily with meals., Disp: , Rfl: QZYAPKI-HBTMRSVXO-IJZV PO, Take by mouth daily., Disp: , [...] tablet by mouth daily., Disp: , Rfl: Taconite-3 Fatty Acids (Fish Oil) 1000 MG capsule, [...] visit. All pertinant portions of the clinical network and threat support specialist documentation was reviewed. IZZY Calhoun I have reviewed the findings of the clinical network and threat support specialist and agree with their assessment. IZZY Calhoun [...] today is 3-4/10. Patient: Heidi Mcintosh MR#: [id number] : 1955 Age: 67 y.o. Referring Physician: [...] Arthritis Chronic rheumatic arthritis Essential hypertension, benign SC (myocardial infarction) stress SC, 05/2021 Migraine Pulmonary embolism Past Surgical History: [...] by mouth 2 times daily with meals. ZRMOUEY-UREIOHVPA-PZTL PO Take by mouth daily. Celecoxib 200 [...] tablet Take 1 tablet by mouth daily. Taconite-3 Fatty Acids (Fish Oil) 1000 MG capsule [...] times daily with meals., Disp: , Rfl: ILWQSOY-ZMWCYLNZB-KRQN PO, Take by mouth daily., Disp: , [...] tablet by mouth daily., Disp: , Rfl: Taconite-3 Fatty Acids (Fish Oil) 1000 MG capsule, [...] diclofenac, and diphenoxylate-atropine. documented in this encounter [facility] 06-19-2022 Note Formatting of this n ote might be different from the original. Discharge instructions and education reviewed with patient, education provided for DX and new medications, printed education given. Wound care and [facility] education also provided. Patient and family denies any questions, IV and tele removed. [facility] 06-19-2022 Miscellaneous Notes Discharge instructions and education [...] dry and intact. Patient complains of pain 01/06. Patient states she prefers the oral pain [...] at this time. Pt resting comfortably, prn [place] administered for pain with effectiveness. No changes from previous assessment. Hip dressing intact. Voiding and passing gas. Will continue to monitor for any changes. Pt c/o of right hip pain, prn [place] given with relief. ambulating to bedside commode with 1 person assistance. Educated on importance of incentive spirometer. DATE OF PROCEDURE: 06/18/2022 ATTENDING PHYSICIAN: Bradford Hussein M.D. COLLECTION CLERK: Ghanshyam Dye CNP. PREOPERATIVE DIAGNOSES: 1. Severe [...] FLUIDS: Adequate. SPECIMENS: Bone. INSTRUMENTATION USED: DePuy [place] 50 mm cup with a 32 mm [...] without the assistance of a skilled surgical services tech. A surgical services tech was medically necessary for positioning, retraction and instrumentation. POST OPERATIVE/PROCEDURE NOTE Heidi Mcintosh 67 y.o. female [id number] SURGEON Surgeon(s) and Role: * Bradford Hussein MD - Primary COLLECTION CLERK IZZY Calhoun ANESTHESIOLOGIST LOOSE HAND PACKER: NICOLE Vital SURGICAL STAFF Hat Maker: Shama Tong RN; Virginia Willoughby RN; Jailyn Georges RN Nurse Practitioner: IZZY Calhoun Scrub Person: Edgardo Allen RN Repairer Engine Production: Osvaldo Shane LPN PROCEDURE PERFORMED Procedure(s) (LRB): [...] Implant Name Type Inv. Item Serial No. Track Walker Lot No. LRB No. Used Action Irvine Gripton Acetabular Shell Sector [id number] Right 1 Implanted Irvine Altrx Polyethlene Acetabular Liner Neutral [id number] Right 1 Implanted Femoral Stem 12/14 Taper Actis Duofix Hip Prosthesis Cementless [id number] Right 1 Implanted Biolox Delta Ceramic Femoral Head +5.0 [id number] Right 1 Implanted SPECIMENS ID Type Source Tests Collected by Time Destination 1 : Right Femoral Head Permanent TISSUE SURGICAL PATHOLOGY REQUEST Bradford Hussein MD 06/18/2022 0849 IZZY Calhoun June 18, 2022 10:06 AM 05/20/22 0955 Information Source Information Source patient Contact Information Patient Relations Manager Name Claudia Gray RN Case Manager's Living [...] with discharge plans. documented in this encounter [facility] 06-19-2022 Note Formatting of this n [...] denies any other needs at this time. [facility] 06-19-2022 Hospital Discharge instructions Treva Dugan RN [...] how your recovery is progressing at home. Treva Dugan RN - 06/19/2022 11:24 AM EST Contact Office ([phone]) if: > Any falls or injuries > [...] puffs per hour and tylenol as directed. Treva Dugan RN - 06/19/2022 11:26 AM EST [...] are to hold your pad in place. The following attachments cannot be sent through Care Everywhere.acetaminophen (oral) (Swedish)apixaban (Swedish)docusate (oral/rectal) (Swedish)acetaminophen and hydrocodone (Swedish)omeprazole (Swedish)celecoxib (Swedish)documented in this encounter [facility] 06-19-2022 Note Formatting of this n ote might be different from the original. Patient medicated for pain 01/06. Patient working with OT. [facility] 06-19-2022 History of Present illness Narrative NUTRITION [...] 3.2 oz) 03/21/22 60.8 kg (134 lb) [place] body weight: 45.5 kg (100 lb 4.9 [...] Arthritis Chronic rheumatic arthritis Essential hypertension, benign SC (myocardial infarction) stress SC, 05/2021 Migraine Pulmonary embolism Past Surgical History: [...] sit with verbal cues using the leg fresh foods clerk. STS from EOB with verbal cues [...] Car transfer simulation with CGA using leg fresh foods clerk and verbal cues for using left fresh foods clerk correctly. Pt wheeled back to room where we reviewed precautions with pt and pt spouse. Pt performs AP, QS, GS, SAQ and heel slides x3-5 reps each to review HEP. All questions answered for pt and pt spouse. pt provided with cold pack on Rt hip and call light in reach. Transfer Skill: Sit To Stand, Rehab Eval [place] (Sit-Stand Transfers) contact guard Physical Assist/Nonphysical Assist: Sit/Stand 1 person assist Weight-Bearing Restrictions: Sit/Stand toe touch weight-bearing Assistive Device For Transfer: Sit/Stand 2 wheeled walker Gait Skills, PT Eval Level of [place]: Gait contact guard Physical Assist/Nonphysical Assist: Gait 1 person assist Weight-Bearing Restrictions: Gait toe touch weight-bearing Assistive Device For Transfer: Gait 2 wheeled walker Gait Distance 25 feet Stair Negotiation [place] Level: Stair Negotiation contact guard assist Physical [...] Beds Scripts AOP received prescriptions for Heidi Ulazul for bedside delivery at discharge Medications ordered: Eliquis Bronx 5-325 mg Celecoxib 200 mg Docusate 100 [...] Arthritis Chronic rheumatic arthritis Essential hypertension, benign SC (myocardial infarction) stress SC, 05/2021 Migraine Pulmonary embolism Existing Precautions/Restrictions fall;hip;weight [...] Supine to Sit, Rehab Eval Level of [place]: Supine/Sit stand-by assist Physical Assist/Nonphysical Assist: Supine/Sit 1 person assist Transfer Skill: Sit to Stand, Rehab Eval Level of [place]: Sit/Stand contact guard Physical Assist/Nonphysical Assist: Sit/Stand 1 person assist Weight-Bearing Restrictions: Sit/Stand toe touch weight-bearing Assistive Device for Transfer: Sit/Stand wheeled walker Upper Body Dressing Level of [place] stand-by assist Physical Assist/Nonphysical Assist 1 person assist Lower Body Dressing Level of [place] maximum assist (25% patients effort) Physical Assist/Nonphysical Assist 1 person + 1 person to manage equipment Assistive Device waiter/waitress cocktail lounge Toileting Level of [place] moderate assist (50% patients effort) Physical Assist/Nonphysical Assist 1 person assist General Therapy Interventions Planned Therapy Interventions (OT Eval) ADL retraining;balance training;transfer training Clinical Impression Co-evaluation/co-treatment performed? Yes, combination of simultaneous billable and individual billable skilled care Patient Instruction Pt instructed on LB dressing techniques donning underwear and shorts with training on use of waiter/waitress cocktail lounge in sitting and standing with assistance to [...] hygiene training Therapist Information License # [id number] 1. Pt will complete LB dressing min [...] Arthritis Chronic rheumatic arthritis Essential hypertension, benign SC (myocardial infarction) stress SC, 05/2021 Migraine Pulmonary embolism Past Surgical History [...] Supine to Sit, Rehab Eval Level of [place]: Supine/Sit stand-by assist Physical Assist/Nonphysical Assist: Supine/Sit 1 person assist Transfer Skill: Sit To Stand, Rehab Eval [place] (Sit-Stand Transfers) contact guard Physical Assist/Nonphysical Assist: Sit/Stand 1 person assist Weight-Bearing Restrictions: Sit/Stand toe touch weight-bearing Assistive Device For Transfer: Sit/Stand 2 wheeled walker Gait Skills, PT Eval Level of [place]: Gait contact guard Physical Assist/Nonphysical Assist: Gait [...] WITH DR HUSSEIN. documented in this encounter [facility] 06-19-2022 Note Formatting of this n ote might be different from the original. Patient returned from therapy, alert and oriented x 4. Patient sitting up in chair, legs elevated and ice to right hip. [facility] dressing is clean, dry and intact. Patient complains of pain 01/06. Patient states she prefers the oral pain meds versus the IV. I stated to her she isn't due for oral pain meds yet but once she would have them I could medicate her pain. Patient denies chest pain or SOB. No complaints of nausea, vomiting or diarrhea. Patient denies any other needs at this time, call light within reach. [facility] 06-19-2022 Note Formatting of this n ote might be different from the original. Patient IV stopped per orders, patient is taking in adequate oral intake. Patient is leaving for therapy and states she has no needs at this time. [facility] 06-19-2022 Hospital course Narrative Images from the [...] CARE 125 (H) 70 - 100 MG/DL Boiler/Chiller Technician 207,205 REPEAT ABO/RH (D) TYPING Result Value [...] over 4000mg acetaminophen daily. Commonly known as: LEON For diagnoses: Acute postoperative pain of right [...] daily with meals. Commonly known as: OS-SAI OXMDIEE-LBGEUQTDO-GWTS PO Take by mouth daily. Dextromethorphan-Guaifenesin 60-1200 [...] Provider Department Dept Phone 07/10/2022 11:00 AM Ghanshyam [facility] [phone] documented in this encounter [facility] 06-19-2022 Note Formatting of this n ote might be different from the original. Pt resting comfortably, prn [place] administered for pain with effectiveness. No changes from previous assessment. Hip dressing intact. Voiding and passing gas. Will continue to monitor for any changes. [facility] 06-19-2022 Note Formatting of this n ote might be different from the original. Pt c/o of right hip pain, prn [place] given with relief. ambulating to bedside commode with 1 person assistance. Educated on importance of incentive spirometer. [facility] 06-18-2022 Consult note Associated Order (s): IP CONSULT TO GENERAL MEDICINE Medical Consultation Patient is a 67 yo female s/p right STEPHANIE. She was at her baseline state of health prior to surgery. She was medically optimized by her primary care provider and fleet salesperson. Notable for ECHO most recent EF back [...] Arthritis Chronic rheumatic arthritis Essential hypertension, benign SC (myocardial infarction) stress SC, 05/2021 Migraine Pulmonary embolism Past Surgical History: [...] CARE 125 (H) 70 - 100 MG/DL Boiler/Chiller Technician 207,205 REPEAT ABO/RH (D) TYPING Result Value [...] minutes total time. Darian Cisneros MD 06/18/2022 [facility] 06-18-2022 Consult note Associated Order (s): IP CONSULT TO GENERAL MEDICINE Medical Consultation Patient is a 67 yo female s/p right STEPHANIE. She was at her baseline state of health prior to surgery. She was medically optimized by her primary care provider and fleet salesperson. Notable for ECHO most recent EF back [...] Arthritis Chronic rheumatic arthritis Essential hypertension, benign SC (myocardial infarction) stress SC, 05/2021 Migraine Pulmonary embolism Past Surgical History: [...] CARE 125 (H) 70 - 100 MG/DL Boiler/Chiller Technician 207,205 REPEAT ABO/RH (D) TYPING Result Value [...] Cisneros MD 06/18/2022 documented in this encounter [facility] 06-18-2022 Note Formatting of this n ote is different from the original. DATE OF PROCEDURE: 06/18/2022 ATTENDING PHYSICIAN: Bradford Hussein M.D. COLLECTION CLERK: Ghanshyam Dye CNP. PREOPERATIVE DIAGNOSES: 1. Severe [...] FLUIDS: Adequate. SPECIMENS: Bone. INSTRUMENTATION USED: DePuy [place] 50 mm cup with a 32 mm neutral liner, DePuy Actis size 5 high-offset hip stem, and a Biolox delta ceramic head +5/32 diameter, 12/14 taper. INDICATIONS: Heidi is an established patient of [facility]. She is a very pleasant, 67-year-old female [...] without the assistance of a skilled surgical services tech. A surgical services tech was medically necessary for positioning, retraction and instrumentation. [facility] Work Phone: 06-18-2022 Nurse Note Patient transferred to [place] 2 t via cart in stable condition. Report given to AARTI López. Cart left in locked and lowest position with side rails up x2. Snack and call light given to patient. Monitors and alarms on and attached to patient. Dr. Hussein and Rj ALVAREZ at bedside at this time assessing pt. [...] oriented person, place and situation. Godwin Cox CRNA notified in regards to patient blood pressure. New orders receive to contact Dr Gleason. Patient's blood pressure is still low Godwin LOOSE HAND PACKER gave more phenylephrine. Patient has a decrease in blood pressure Godwin LOOSE HAND PACKER @ the bedside phenylephrine given. documented in this encounter [facility] 06-18-2022 Nurse Surgical operation note Patient transferred to [address] via cart in stable condition. Report given to AARTI López. Cart left in locked and lowest position with side rails up x2. Snack and call light given to patient. Monitors and alarms on and attached to patient. [facility] 06-18-2022 Nurse Surgical operation note Dr. Hussein and Rj LOOSE HAND PACKER at bedside at this time assessing pt. And right hip dressing. Dressing clean dry and intact Dr. Hussein verbalized right hip looks fine new orders received at this time for an H&H.. [facility] 06-18-2022 Nurse Surgical operation note Left message with Dr Cisneros no change in blood pressure after medication given. [facility] 06-18-2022 Nurse Surgical operation note Dr Cisneros returned call new orders received. [facility] 06-18-2022 Nurse Surgical operation note Patient voided on bedpan 350 ml. [facility] 06-18-2022 Nurse Surgical operation note New orders received from Dr Cisneros. [facility] 06-18-2022 Nurse Surgical operation note Dr Gleason notified and a voicemail left for provider to return call in regards to patient blood pressure being low. Patient is drowsy but oriented person, place and situation. [facility] 06-18-2022 Nurse Surgical operation note Godwin Cox CRNA notified in regards to patient blood pressure. New orders receive to contact Dr Gleason. [facility] 06-18-2022 Nurse Surgical operation note Patient's blood pressure is still low Godwin LOOSE HAND PACKER gave more phenylephrine. [facility] [employer] 06-18-2022 Nurse Surgical operation note Patient has a decrease in blood pressure Godwin LOOSE HAND PACKER @ the bedside phenylephrine given. [employer] 06-18-2022 Note Formatting of this n ote is different from the original. POST OPERATIVE/PROCEDURE NOTE Heidi Mcintosh 67 y.o. female [id number] SURGEON Surgeon(s) and Role: * Bradford Hussein MD - Primary COLLECTION CLERK IZZY Calhoun ANESTHESIOLOGIST LOOSE HAND PACKER: NICOLE Vital SURGICAL STAFF Hat Maker: Shama Tong RN; Virginia Willoughby RN; Jailyn Georges RN Nurse Practitioner: IZZY Calhoun Scrub Person: Edgardo Allen RN Repairer Engine Production: Osvaldo Shane LPN PROCEDURE PERFORMED Procedure(s) (LRB): [...] Implant Name Type Inv. Item Serial No. Track Walker Lot No. LRB No. Used Action Irvine Gripton Acetabular Shell Sector [id number] Right 1 Implanted Irvine Altrx Polyethlene Acetabular Liner Neutral [id number] Right 1 Implanted Femoral Stem 12/14 Taper Actis Duofix Hip Prosthesis Cementless [id number] Right 1 Implanted Biolox Delta Ceramic Femoral Head +5.0 [id number] Right 1 Implanted SPECIMENS ID Type Source Tests Collected by Time Destination 1 : Right Femoral Head Permanent TISSUE SURGICAL PATHOLOGY REQUEST Bradford Hussein MD 06/18/2022 [id number] IZZY Calhoun June 18, 2022 10:06 AM [facility] 05-20-2022 Note Formatting of this n ote is different from the original. 05/20/22 0955 Information Source Information Source patient Contact Information Patient Relations Manager Name Claudia Gray RN Case Manager's Living [...] to follow and assist with discharge plans. [facility] 04-10-2022 History of Present illness Narrative Ortho [...] 04/10/2022 3:02 PM Patient: Heidi Mcintosh MR#: [id number] : 1955 Age: 67 y.o. Referring Physician: [...] History Past Medical History: Diagnosis Date Arthritis SC (myocardial infarction) Migraine Pulmonary embolism Past Surgical [...] [x]cane, []bracing Are you followed by a fleet salesperson? [x] [] Name: Dr. Horn--Vinh Are you [...] a right total hip arthroplasty for optimal half-way management. PHYSICAL EXAM: This is an alert, [...] joint space, subchondral sclerosis, osteophyte formation, and [id number] contact. IMPRESSION: 1.) Severe symptomatic end-stage arthritis, right hip. 2.) Suspected abductor muscle tear, right side. 3.) History of PE in Jul, 2021 with unknown etiology. 4.) History of SC. PLAN: We have discussed in great detail [...] of limb, and ultimately loss of life. [facility] expectations, risks and general implant survivorship were also discussed. Despite these risks, the patient would like to proceed with surgical planning. Today, we will initiate the pre-surgical process including nasal MRSA screening, scheduling an appointment for [facility] and the potential surgical date, and reviewing [...] MCV Past Medical History: Diagnosis Date Arthritis SC (myocardial infarction) Migraine Pulmonary embolism Past Surgical [...] Diarrhea Diphenoxylate-Atropine Diarrhea documented in this encounter [facility] 03-21-2022 History of Present illness Narrative HPI: [...] OA L>R. Referrals/consults: Dr. Ewing rheumatology PT: completed PT, has completed 6 [...] with chronic pain. documented in this encounter [employer] 03-21-2022 Instructions Chante Calderon RN - 03/21/2022 [...] are extremely rare. documented in this encounter [facility] 03-08-2022 History and physical note HPI: [...] Plan: Proceed with right intra-articular hip injection [facility] 03-08-2022 History and physical note HPI: This [...] intra-articular hip injection documented in this encounter [facility] 03-08-2022 History of Present illness Narrative Heidi [...] we have received clearance for their pacemaker. ROGER Farrar RN RT - Cruz T., RT LOOSE HAND PACKER - N/A WET CROWN BLOCKING OPERATOR - Oliva Erazo RN Physician - Dr. Alarcon Site cleansed with hibiclens. documented in this encounter [facility] 03-08-2022 Procedure note Associated Ord er(s): [...] presents for right hip injection. Technique: The technology program manager's and physician's hands were washed immediately prior to the procedure using a chlorhexidine soap or sanitized using ethyl alcohol hand resolution analyst. Hat, mask, and sterile gloves were used [...] complications. PLAN :Follow-up at next scheduled visit [facility] 03-08-2022 Procedure note Associated Ord er(s): LARGE [...] presents for right hip injection. Technique: The technology program manager's and physician's hands were washed immediately prior to the procedure using a chlorhexidine soap or sanitized using ethyl alcohol hand resolution analyst. Hat, mask, and sterile gloves were used [...] next scheduled visit documented in this encounter [facility] 02-11-2022 History of Present illness Narrative [facility] OUTPATIENT [facility]ATION DAILY TREATMENT NOTE Today's Date [...] Visit: Discharge Aftab Aldridge PT STATE LICENSE, [id number] documented in this encounter [facility] 02-07-2022 Instructions Trish Crum - 02/07/2022 [...] are extremely rare. documented in this encounter [facility] 02-07-2022 History of Present illness Narrative Nurse [...] that requires education. documented in this encounter [facility] 02-06-2022 History of Present illness Narrative [facility]PAT[facility] DAILY TREATMENT NOTE Today's Date [...] improve hip A/PROM and strength Therapeutic Exercise (44125) Intervention Manual Parameters Nustep L3 7' (384 [...] with straight cane out of clinic 130' LAWNMOWER REPAIR MECHANIC SBA-NT Parameters seated AROM cervical: B rotations, retractions, ext 3 12x1 ea -HEP today/focused on hip/groin Intervention scalene/UT stretches 20 x2 ea-HEP today, chin tucks 3 [id number] Parameters HEP: glute bridge, LTRs, chin tucks (give pics of new ex's with ea.session) Manual Therapy (64702) Intervention long-axis distraction 20 x5 R Parameters STM using 2# ball to R hip and groin region / lat.R hip jt mob 10' total for all manual therapy Functional Activity (07450) Intervention manual hip IR/ER stretch 20 x2 [...] is interested). To discuss with PT-Faraz at [place]. Skilled Intervention demonstrated by modifications of treatment per exercise log including increased load and assessment of patient's response and safety interventions per exercise log. Progress towards goals as expected. Plan for Next Visit: Treatment Visit with focus on improving functional mobility, strength, and stability in R hip/groin/core. Monitor response. Progress as tolerable. Next visit is set with Suzanne, last session. Pt is interested in more sessions if able (also interested in free month at [facility]). Rozina Gordillo PTA STATE LICENSE, [id number] documented in this encounter [facility] 2022 History of Present illness Narrative [facility] OUTPATIENT REHAB[facility]ATION DAILY TREATMENT NOTE Today's Date [...] OTHER Precautions/Contraindications osteoporosis and RA 10:00AM-10:43AM Notes Reginaldo/von Carlowitz, 12 Vitals gluteal tendonopathy, trochanteric bursitis --> improve hip A/PROM and strength Therapeutic Exercise (66713) Intervention Manual Parameters Nustep L3 7' (423 [...] 20 x2 ea-HEP today, chin tucks 3 [id number] Parameters HEP: glute bridge, LTRs, chin tucks (give pics of new ex's with ea.session) Manual Therapy (03751) Intervention long-axis distraction 20 x4 R- NT [...] as tolerable. Rozina Gordillo PTA STATE LICENSE, [id number] documented in this encounter [facility] 01-28-2022 History of Present illness Narrative [facility]PAT[facility] REH[facility]ATION DAILY TREATMENT NOTE Today's Date [...] improve hip A/PROM and strength Therapeutic Exercise (77710) Parameters Nustep L3 7' (423 steps) Intervention [...] today/focused on hip/groin Parameters chin tucks 3 [id number] today Intervention scalene/UT stretches 20 x2 ea-HEP today Parameters NV-SOR, RDL's Intervention see manual below Parameters hooklying hip abd/add isometrics (belt/bolster) 5 10x1 ea Intervention shuttle squats D/L 37#10x2 Parameters HEP: glute bridge, LTRs, chin tucks (give pics of new ex's with ea.session) Manual Therapy (07519) Intervention long-axis distraction 20 x4 R / [...] with focus on Improving functional strength. Aftab Aldridge, PT STATE LICENSE, [id number] documented in this encounter [facility] 01-23-2022 History of Present illness Narrative [facility]ATION DAILY TREATMENT NOTE Today's Date [...] improve hip A/PROM and strength Therapeutic Exercise (46896) Parameters Nustep L3 7' (423 steps) Intervention [...] today/focused on hip/groin Parameters chin tucks 3 [id number] today Intervention scalene/UT stretches 20 x2 ea-HEP today Parameters NV-SOR, RDL's Intervention see manual below Parameters hooklying hip abd/add isometrics (belt/bolster) 5 10x1 ea Intervention shuttle squats D/L 37#10x2 Parameters HEP: glute bridge, LTRs, chin tucks (give pics of new ex's with ea.session) Manual Therapy (92494) Intervention long-axis distraction 20 x4 R / [...] closed-chain activity. Rozina Gordillo PTA STATE LICENSE, [id number] documented in this encounter [facility] 01-21-2022 History of Present illness Narrative [facility]ATION DAILY TREATMENT NOTE Today's Date [...] improve hip A/PROM and strength Therapeutic Exercise (65027) Parameters Nustep L3 7' (414 steps) Intervention [...] today/focused on hip/groin Parameters chin tucks 3 [id number] today Intervention scalene/UT stretches 20 x2 ea-HEP today Parameters NV-SOR, hip IR/ER stretch, RDL's Intervention see manual below Parameters hooklying hip abd/add isometrics (belt/bolster) 5 10x1 ea Parameters HEP: glute bridge, LTRs, chin tucks Manual Therapy (44290) Intervention long-axis distraction 20 x4 R Parameters [...] able to progress with new isometrics (hip). Nicoletteos good understanding of program, needs reinforced with [...] since eval. Rozina Gordillo PTA STATE LICENSE, [id number] documented in this encounter [facility] 01-16-2022 History of Present illness Narrative [facility]PAT[facility] REH[facility]ATION DAILY TREATMENT NOTE Today's Date [...] improve hip A/PROM and strength Therapeutic Exercise (95233) Parameters Nustep L3 6' (359 steps) Intervention [...] retractions on 01-16-22) Parameters chin tucks 3 [id number] today Intervention scalene/UT stretches 20 x2 ea Parameters NV-SOR, hip IR/ER stretch, RDL's Intervention see manual below Parameters HEP: glute bridge, LTRs, chin tucks Manual Therapy (91588) Intervention long-axis distraction 20 x4 R Parameters [...] to progress. Rozina Gordillo PTA STATE LICENSE, [id number] documented in this encounter [facility] 01-14-2022 History of Present illness Narrative [facility] DAILY TREATMENT NOTE Today's Date [...] taking her father to an appt at [facility] and had to walk quite a [...] improve hip A/PROM and strength Therapeutic Exercise (77543) Parameters Nustep L3 6' (311 steps) Intervention LTR's 3 12x1 B (keep shallow) Parameters abd.bracing 5 12x1 / abd.bracing with marches 12x1 (LAWNMOWER REPAIR MECHANIC A with R) Intervention bridges with glute [...] PT's recommendations. Rozina Gordillo PTA STATE LICENSE, [id number] documented in this encounter [facility] 01-09-2022 History of Present illness Narrative [facility] REH[facility] DAILY TREATMENT NOTE Today's Date [...] without tear. 4. Right iliopsoas bursitis. 5. 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 Rozina Gordillo PTA STATE LICENSE, [id number] documented in this encounter [facility] 12-25-2021 History of Present illness Narrative [...] there are inherent diagnostic limitations compared to kzdh-ct-csdc evaluations. We elected to proceed with the [...] appts: Dr. Lemuel Sadler Dx her at [facility] Dr. Gerardo Khan at [facility] -> Dr moved to [place] Former Dr. 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 labs - Explained to patient that we [...] should receive a 3rd dose of the [employer] or moderna mRNA Covid vaccine. [facility] HCQ therapy - Advised patient that the [...] month(s) Telehealth appointments ok. Andrea Ewing MD Stock Or Delivery Clerk Senior Advisory Note: To expedite correspondence this note was generated by Nexi voice recognition software. Some grammatical or spelling errors may occur using the system. documented in this encounter [facility] 12-17-2021 Telephone encounter Note Pt had labs drawn friday [facility] 06-20-2022 Miscellaneous Notes Pt had labs drawn friday documented in this encounter [facility] 11-27-2021 History of Present illness Narrative [...] appts: Dr. Lemuel Sadler Dx her at [facility] Dr. Gerardo Khan at [facility] -> Dr moved to [place] Former Dr. 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 [facility]: [id number] + [id number] A dressing was placed over the site. The patient tolerated the procedure well. No bleeding complications occurred. Andrea Ewing MD Assessment & Plan Rheumatoid arthritis +RF/CCP - appears controlled - Plan: stay on same dose of methotrexate which is 6 pills a week and weekly enbrel &HCQ 400mg/day [facility] methotrexate user - Plan: Liver fibrosis test - Q3 labs at [facility] labs - Explained to patient that we [...] should receive a 3rd dose of the Magnasense or moderna mRNA Covid vaccine. moth exterminator HCQ therapy - Advised patient that the [...] interventional pain management (Dr. Michaela Alarcon at [facility]) B/L trochanteric bursitis R>L -Patient obtained injections today of the affected areas. The patient indicates understanding of these issues and agrees with the plan. Return to clinic in 6-9 month(s) Telehealth appointments ok. Andrea Ewing MD Stock Or Delivery Clerk Senior Advisory Note: To expedite correspondence this note was generated by Nexi voice recognition software. Some grammatical or spelling errors may occur using the system. documented in this encounter [facility] 11-15-2021 History of Present illness Narrative [...] there are inherent diagnostic limitations compared to ergn-bq-dlhd evaluations. We elected to proceed with the [...] appts: Dr. Lemuel Sadler Dx her at [facility] Dr. Gerardo Khan at [facility] -> Dr moved to [place] Former Dr. 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 Shannon Gonazlez at [facility] Interim: C/o of b/l trochanteric bursitis R>L-> [...] Spine AP/LAT/FLEX/EXT, MR Cervical Spine Without Contrast, [facility] methotrexate user - Plan: Liver fibrosis test - Q3 labs at [facility] labs - Explained to patient that we [...] should receive a 3rd dose of the [employer] or moderna mRNA Covid vaccine. moth exterminator HCQ therapy - Advised patient that the [...] interventional pain management (Dr. Michaela Alarcon at [facility]) H/O blood clots - r/o APLS - [...] month(s) Telehealth appointments ok. Andrea Ewing MD Stock Or Delivery Clerk Senior Advisory Note: To expedite correspondence this note was generated by Nexi voice recognition software. Some grammatical or spelling errors may occur using the system. documented in this encounter [facility] Evaluation + Plan note No data available for this section [facility] [...] unspecified migraine type [facility] Right hip pain- Primary Pain in joint, pelvic region and thigh Osteoarthritis of cervical spine with myelopathy Bilateral occipital neuralgia [facility] Diagnosis Primary osteoarthritis of right hip- Primary Primary localized osteoarthrosis, pelvic region and thigh [facility] Diagnosis Primary osteoarthritis of right hip Primary localized osteoarthrosis, pelvic region and thigh [facility] Diagnosis Rheumatoid arthritis, involving unspecified site, unspecified whether rheumatoid factor present (HCC) [facility] Diagnosis Primary osteoarthritis of right hip- Primary Primary localized osteoarthrosis, pelvic region and thigh Chronic right hip pain Pain in joint, pelvic region and thigh Cervical spondylosis without myelopathy Migraine without status migrainosus, not intractable, unspecified migraine type Rheumatoid arthritis, involving unspecified site, unspecified whether rheumatoid factor present [facility]* Diagnosis Right hip pain- Primary Pain in joint, pelvic region and thigh [facility]* Diagnosis Acute postoperative pain of right hip- Primary Abnormal results of liver function studies Nonspecific abnormal results of liver function study Preop testing Preoperative examination, unspecified Abnormal finding of blood chemistry, unspecified Primary osteoarthritis of right hip Primary localized osteoarthrosis, pelvic region and thigh Primary osteoarthritis of one hip, right [facility]* Diagnosis Hx of total hip arthroplasty, right- Primary documented in this encounter [facility] note* Diagnosis Rheumatoid arthritis, involving unspecified site, unspecified rheumatoid factor presence [facility] Diagnosis Rheumatoid arthritis involving multiple sites with positive rheumatoid factor (HCC)- Primary moth exterminator methotrexate user [facility] Diagnosis Rheumatoid arthritis, involving unspecified site, unspecified whether rheumatoid factor present (HCC) [facility] Diagnosis Rheumatoid arthritis, involving unspecified site, unspecified whether rheumatoid factor present (HCC) [facility] Rheumatoid arthritis (HCC) [facility] Diagnosis Hx of total hip arthroplasty, right- Primary [facility] Diagnosis Rheumatoid arthritis involving multiple sites with positive rheumatoid factor (HCC)- Primary Osteoarthritis of cervical spine, unspecified spinal osteoarthritis complication status [facility] methotrexate user Encounter for monitoring of etanercept therapy Long-term use of Plaquenil Age-related osteoporosis without current pathological fracture [facility] Diagnosis Rheumatoid arthritis involving multiple sites with positive rheumatoid factor (HCC)- Primary Rheumatoid arthritis, involving unspecified site, unspecified whether rheumatoid factor present (HCC) Age-related osteoporosis without current pathological fracture [facility] methotrexate user Long-term use of Plaquenil Encounter for monitoring of etanercept therapy Osteoarthritis, generalized [facility]* Diagnosis Hx of total hip arthroplasty, right- Primary [facility] Diagnosis Rheumatoid arthritis involving multiple sites with positive rheumatoid factor (HCC)- Primary moth exterminator methotrexate user [facility] region and thigh [facility] Diagnosis High risk medication use- Primary [facility] Diagnosis Rheumatoid arthritis involving multiple sites with positive rheumatoid factor (HCC)- Primary Age-related osteoporosis without current pathological fracture [facility] Diagnosis Rheumatoid arthritis involving multiple sites with positive rheumatoid factor (HCC) [facility] No data available for this section [facility] Progress note No data available for this section [facility] Reason for visit Narrative* Auth/Cert Specialty Diagnoses / Procedures Referred By Contac t Referred To Contact Diagnoses Primary osteoarthritis of right hip Primary osteoarthritis of right hip [M16.11] Procedures [place] TOTAL HIP ARTHROPLASTY ARTHROPLASTY HIP TOTAL LATERAL APPROACH Bradford Hussein MD [address] [phone] Referral ID Status Reason Start Date Expiration Date Visits Re quested Visits Authorized [id number] 04/18/2022 1 1 [employer] Assessments Diagnosis Seropositive rheumatoid arth ritis (HCC) [...] Documents on File Type Date Recorded 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 The online form was completed and sent in. documented in this encounter* Ricky Judd LPN - 09/15/2019 11:07 AM EDT Pt's Enbrel required a tier exception per [facility]. I called [employer] ([phone]) and talked to Otis. The Tier exception went to pharmacy review. PA # [id number]. documented in this encounter Reason for Referral Specialty Diagnoses / Procedures Referred By Clara cunningham Referred To Contact Radiology Diagnoses Rheumatoid arthritis involving multiple sites with positive rheumatoid factor (HCC) Osteoarthritis of cervical spine with myelopathy Chronic migraine without aura, with intractable migraine, so stated, with status migrainosus Procedures MR Cervical Spine Without Contrast Andrea Ewing MD [address] [place] [phone] Referral ID Status Reason Start Date Expiration Date V isits Requested Visits Authorized [id number] New Request 11/15/2021 11/15/2022 1 1 Specialty Diagnoses / Procedures Referred By Contac t Referred To Contact Radiology Diagnoses Age-related osteoporosis without current pathological fracture Procedures XR Bone Density DEXA Axial Andrea Ewing MD [address] [place] [phone] Referral ID Status Reason Start Date Expiration Date V isits Requested Visits Authorized [id number] Authorized 11/15/2021 11/15/2022 1 1 Specialty Diagnoses / Procedures Referred By Contac t Referred To Contact Diagnoses Rheumatoid arthritis, involving unspecified site, unspecified whether rheumatoid factor present (HCC) Andrea Ewing MD [address] [place] [id number] Referral ID Status Reason Start Date Expiration Date Visits Re quested Visits Authorized [id number] Closed 1 1 Specialty Diagnoses / Procedures Referred By Contac t Referred To Contact Radiology Diagnoses Right hip pain Rheumatoid arthritis involving multiple sites with positive rheumatoid factor (HCC) Procedures MR Hip Right Without Contrast Andrea Ewing MD [address] [place] [phone] Referral ID Status Reason Start Date Expiration Date V isits Requested Visits Authorized [id number] Authorized 12/25/2021 12/25/2022 1 1 Specialty Diagnoses / Procedures Referred By Contac t Referred To Contact Rehabilitation Diagnoses Right hip pain Osteoarthritis of cervical spine with myelopathy Bilateral occipital neuralgia Andrea Ewing MD [address] [place] [address] Referral ID Status Reason Start Date Expiration Date V isits Requested Visits Authorized [id number] Authorized 12/25/2021 12/25/2022 1 1 Specialty Diagnoses / Procedures Referred By Contac t Referred To Contact Pain Medicine Diagnoses Right hip pain Osteoarthritis of cervical spine with myelopathy Bilateral occipital neuralgia Andrea Ewing MD [address] [place] [address] Michaela Alarcon MD [address] [place] [address] Referral ID Status Reason Start Date Expiration Date V isits Requested Visits Authorized [id number] Authorized 12/25/2021 12/25/2022 1 1 Specialty Diagnoses / Procedures Referred By Contac t Referred To Contact Diagnoses Cervical spondylosis without myelopathy Michaela Alarcon MD [address] [place] [address] Referral ID Status Reason Start Date Expiration Date V isits Requested Visits Authorized [id number] New Request 02/07/2022 03/04/2023 1 1 Scheduling Instructions Please PA and schedule: Right Hip Intra-articular Injection Specialty Diagnoses / Procedures Referred By Contac t Referred To Contact Diagnoses Primary osteoarthritis of right hip Procedures XR FLUORO PAIN MANAGEMENT Michaela Alarcon MD [address] [place] [address] Referral ID Status Reason Start Date Expiration Date V isits Requested Visits Authorized [id number] New Request 03/08/2022 04/02/2023 1 1 Specialty Diagnoses / Procedures Referred By Contac t Referred To Contact Diagnoses Rheumatoid arthritis, involving unspecified site, unspecified whether rheumatoid factor present (HCC) Aftab Love MD [address] [place] [address] Referral ID Status Reason Start Date Expiration Date Visits Re quested Visits Authorized [id number] Closed 1 1 Specialty Diagnoses / Procedures Referred By Contac t Referred To Contact Diagnoses Chronic right hip pain Michaela Alarcon MD [address] [place] [address] Referral ID Status Reason Start Date Expiration Date V isits Requested Visits Authorized [id number] Auth Not Needed 03/21/2022 04/15/2023 1 1 Scheduling Instructions Please PA and schedule: right femoral obturator articulating NB #1 Referral ID Status Reason Start Date Expiration Date V isits Requested Visits Authorized [id number] Auth Not Needed 03/21/2022 04/15/2023 1 1 Scheduling Instructions Please PA and schedule: right femoral obturator articulating NB #2 Specialty Diagnoses / Procedures Referred By Contac t Referred To Contact Diagnoses Right hip pain Procedures XR HIP WITH PELVIS RIGHT Bradford Hussein MD [address] [place] [id number] Referral ID Status Reason Start Date Expiration Date V isits Requested Visits Authorized [id number] Pending Review 04/03/2022 04/28/2023 1 1 Specialty Diagnoses / Procedures Referred By Contac t Referred To Contact Diagnoses Hx of total hip arthroplasty, right Procedures XR HIP WITH PELVIS RIGHT Ghanshyam Dye, ZIPPER SETTER CHAINSTITCH-WAREHOUSE SHIPPING CLERK [address] [place] [address] Referral ID Status Reason Start Date Expiration Date V isits Requested Visits Authorized [id number] New Request 06/28/2022 07/23/2023 1 1 Referral ID Status Reason Start Date Expiration Date V isits Requested Visits Authorized [id number] New Request 07/19/2022 08/13/2023 1 1 Specialty Diagnoses / Procedures Referred By Contac t Referred To Contact Diagnoses Hx of total hip arthroplasty, right Procedures XR HIP WITH PELVIS RIGHT Bradford Hussein MD [address] [place] [address] Referral ID Status Reason Start Date Expiration Date V isits Requested Visits Authorized [id number] New Request 10/11/2022 11/05/2023 1 1 Referral ID Status Reason Start Date Expiration Date Visits Re quested Visits Authorized [id number] Closed 1 1 Referral ID Status Reason Start Date Expiration Date V isits Requested Visits Authorized [id number] New Request 06/13/2023 07/07/2024 1 1 Additional Source Comments INFORMATION SOURCE (unrecogn ized section and content) DATE CREATED AUTHOR AUTHOR'S ORGANIZ ATION 07/14/[address] [facility] DATE CREATED AUTHOR AUTHOR'S ORGANIZ ATION 04/10/2022 [facility] DATE CREATED AUTHOR AUTHOR'S ORGANIZ ATION 06/10/[address] [facility] ([place]) DATE CREATED AUTHOR AUTHOR'S ORGANIZ ATION [facility]/03/2023 [facility] DATE CREATED AUTHOR AUTHOR'S ORGANIZ ATION 07/11/2023 [facility] DATE CREATED AUTHOR AUTHOR'S ORGANIZ ATION 07/27/2023 [facility] Care Teams (unrecognized sec tion and content) Tow Motor Driver Relationship Specialty Start Date End Date Joanne Arnold MD [address] [place] [address] PCP - General Family Medicine 12/19/15 Tow Motor Driver Relationship Specialty Start Date End Date Joanne Arnold MD [address] [place] [address] PCP - General Family Medicine 12/19/15 Tow Motor Driver Relationship Specialty Start Date End Date Joanne Arnold MD [address] [place] [address] PCP - General Family Medicine 12/19/15 Tow Motor Driver Relationship Specialty Start Date End Date Joanne Arnold MD [address] [place] [address] PCP - General Family Medicine 12/19/15 Tow Motor Driver Relationship Specialty Start Date End Date Joanne Arnold MD [address] [place] [address] PCP - General Family Medicine 12/19/15 Tow Motor Driver Relationship Specialty Start Date End Date Joanne Arnold MD [address] [place] [address] PCP - General Family Medicine 12/19/15 Tow Motor Driver Relationship Specialty Start Date End Date Joanne Arnold MD [address] [place] [address] PCP - General Family Medicine 12/19/15 Tow Motor Driver Relationship Specialty Start Date End Date Joanne Arnold MD [address] [facility] [address] [place] [address] PCP - General Family Medicine 12/19/15 Tow Motor Driver Relationship Specialty Start Date End Date Joanne Arnold MD [address] [facility] [address] [place] [address] PCP - General Family Medicine 12/19/15 Tow Motor Driver Relationship Specialty Start Date End Date Joanne Arnold MD [address] [facility] [address] [place] [address] PCP - General Family Medicine 12/19/15 Tow Motor Driver Relationship Specialty Start Date End Date Joanne Arnold MD [address] [facility] [place] [phone] PCP - General Family Medicine 03/08/22 Tow Motor Driver Relationship Specialty Start Date End Date Joanne Arnold MD [address] [facility] [place] [phone] PCP - General Family Medicine 03/08/22 Tow Motor Driver Relationship Specialty Start Date End Date Joanne Arnold MD [address] [facility] [address] [place] [address] PCP - General Family Medicine 12/19/15 Tow Motor Driver Relationship Specialty Start Date End Date Joanne Arnold MD [address] [place] [phone] PCP - General Family Medicine 03/08/22 Tow Motor Driver Relationship Specialty Start Date End Date Joanne Arnold MD [address] [place] [phone] PCP - General Family Medicine 03/08/22 Tow Motor Driver Relationship Specialty Start Date End Date Joanne Arnold MD [address] [facility] [place] [address] PCP - General Family Medicine 03/08/22 Tow Motor Driver Relationship Specialty Start Date End Date Joanne Arnold MD [address] [facility] [place] [address] PCP - General Family Medicine 03/08/22 Tow Motor Driver Relationship Specialty Start Date End Date Joanne Arnold MD [address] [place] [address] PCP - General Family Medicine 03/08/22 Tow Motor Driver Relationship Specialty Start Date End Date Joanne Arnold MD [address] [facility] [address] [place] [address] PCP - General Family Medicine 12/19/15 Tow Motor Driver Relationship Specialty Start Date End Date Joanne Arnold MD [address] [facility] [address] [place] [address] PCP - General Family Medicine 12/19/15 Tow Motor Driver Relationship Specialty Start Date End Date Joanne Arnold MD [address] [facility] [address] [place] [address] PCP - General Family Medicine 12/19/15 Tow Motor Driver Relationship Specialty Start Date End Date Joanne Arnold MD [address] [facility] [address] [place] [address] PCP - General Family Medicine 12/19/15 Tow Motor Driver Relationship Specialty Start Date End Date Joanne Arnold MD [address] [facility] [place] [phone] PCP - General Family Medicine 03/08/22 Tow Motor Driver Relationship Specialty Start Date End Date Joanne Arnold MD [address] [place] [address] PCP - General Family Medicine 12/19/15 Tow Motor Driver Relationship Specialty Start Date End Date Joanne Arnold MD [address] [place] [address] PCP - General Family Medicine 03/08/22 Tow Motor Driver Relationship Specialty Start Date End Date Joanne Arnold MD [address] [place] [address] PCP - General Family Medicine 03/08/22 Tow Motor Driver Relationship Specialty Start Date End Date Joanne Arnold MD [address] [place] [address] PCP - General Family Medicine 12/19/15 Tow Motor Driver Relationship Specialty Start Date End Date Joanne Arnold MD [address] [place] [address] PCP - General Family Medicine 12/19/15 Tow Motor Driver Relationship Specialty Start Date End Date Joanne Arnold MD [address] [place] [address] PCP - General Family Medicine 12/19/15 Tow Motor Driver Relationship Specialty Start Date End Date Joanne Arnold MD [address] [place] [address] PCP - General Family Medicine 12/19/15 Tow Motor Driver Relationship Specialty Start Date End Date Joanne Arnold MD [address] [place], [place] [address] PCP - General Family Medicine 12/19/15 Tow Motor Driver Relationship Specialty Start Date End Date Joanne Arnold MD [address] [place] [address] PCP - General Family Medicine 03/08/22 Tow Motor Driver Relationship Specialty Start Date End Date Joanne Arnold MD [address] [place] [address] PCP - General Family Medicine 12/19/15 Tow Motor Driver Relationship Specialty Start Date End Date Joanne Arnold MD [address] [place] [address] PCP - General Family Medicine 03/08/22 Tow Motor Driver Relationship Specialty Start Date End Date Joanne Arnold MD [address] [place] [address] PCP - General Family Medicine 12/19/15 Reason for Visit (unrecogniz ed section and content) Reason Comments Physical Therapy Specialty Diagnoses / Procedures Referred By Contac t Referred To Contact Rehabilitation Diagnoses Right hip pain Osteoarthritis of cervical spine with myelopathy Bilateral occipital neuralgia Andrea Ewing MD [address] [place] [address] [facility] [address] [place] [phone] Referral ID Status Reason Start Date Expiration Date V isits Requested Visits Authorized [id number] Authorized 12/25/2021 12/25/2022 12 199 Specialty Diagnoses / Procedures Referred By Contac t Referred To Contact Rehabilitation Diagnoses Right hip pain Osteoarthritis of cervical spine with myelopathy Bilateral occipital neuralgia Andrea Ewing MD [address] [place] [address] [facility] [address] [place] [address] Reason Comments Pain Specialty Diagnoses / Procedures Referred By Contac t Referred To Contact Diagnoses Primary osteoarthritis of right hip Michaela Alarcon MD [address] [place] [address] Referral ID Status Reason Start Date Expiration Date V isits Requested Visits Authorized [id number] Pending Review 02/07/2022 03/04/2023 1 1 Specialty Diagnoses / Procedures Referred By Contac t Referred To Contact Diagnoses Primary osteoarthritis of right hip Procedures XR FLUORO PAIN MANAGEMENT Michaela Alarcon MD [address] [place] [address] Referral ID Status Reason Start Date Expiration Date V isits Requested Visits Authorized [id number] New Request 03/08/2022 04/02/2023 1 1 Reason Onset Date Comments Medication Refill 03/14/2022 Reason Comments Follow-up Specialty Diagnoses / Procedures Referred By Contac t Referred To Contact Diagnoses Hx of total hip arthroplasty, right Procedures XR HIP WITH PELVIS RIGHT Ghanshyam Dye APRN-CNP [address] [place] [address] Referral ID Status Reason Start Date Expiration Date V isits Requested Visits Authorized [id number] New Request 06/28/2022 07/23/2023 1 1 Reason [...] WITH PELVIS RIGHT Bradford Hussein MD [address] [place] [address] Referral ID Status Reason Start Date Expiration Date V isits Requested Visits Authorized [id number] New Request 10/11/2022 11/05/2023 1 1 Reason Onset Date Comments Medication Refill 01/07/2023 Reason Onset Date Comments Medication Refill 02/10/2023 Reason Onset Date Comments Medication Refill 03/31/2023 Specialty Diagnoses / Procedures Referred By Contac t Referred To Contact Diagnoses Right hip pain Procedures XR HIP WITH PELVIS RIGHT Bradford Hussein MD [address] [place] [address] Referral ID Status Reason Start Date Expiration Date V isits Requested Visits Authorized [id number] New Request 06/13/2023 07/07/2024 1 1 Reason Comments IV Medication Specialty Diagnoses / Procedures Referred By Contac t Referred To Contact Diagnoses Osteoporosis with current pathological fracture with routine healing, unspecified osteoporosis type, subsequent encounter Procedures NJ INJECTION, ZOLEDRONIC ACID, 1 MG Darwin, Sara Lobo, DO [address] [place] [address] [facility] [address] [place] [address] Referral ID Status Reason Start Date Expiration Date V isits Requested Visits Authorized [id number] Authorized 06/09/2023 09/08/2023 1 1 Reason Onset Date Comments Medication Refill 08/05/2023 Care Team (unrecognized sect ion and content) Care Team Personnel Name: JOANNE ARNOLD MD Member Role: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 Physician Address: Address: [address] [place] [address] Scheduled Active and Recently Administ ered Medications (unrecognized section and content) Continuous Medication Order 06/17/2022 06/18/2022 06/19/2022 Sodium chloride 0.9% IV solution (CANCELED) Intravenous, at 100 mL/hr, CONTINUOUS, Starting on Fri06/18/22 at 0700, Until Fri06/18/22 at 1633, Pre-op/Pre-Proc 0719 ($$New Bag$$ - Provider: Summer Bellamy RN)0954 ($$New Bag$$ - Provider: Kodi Cox APRN-LOOSE HAND PACKER)1020 ($$New Bag$$ - Provider: Laxmi Gonzalez RN - Comment: Order per Godwin ALVAREZ to given a fluid bolus) Sodium chloride [...] 2 g, Intravenous, Administer over 30 Minutes, COMPRESSED GASES TESTER TO PROCEDURE, 1 dose, Starting on Fri06/18/22 at 0649, Until Fri06/18/22 at 0833, Other, Pre-operative antibiotic, For 15 Minutes, Pre-op/Pre-Proc 0818 (Given - Provider: Kodi Cox APRN-LOOSE HAND PACKER) hydroCODone-acetaminophen (NORCO) 5-325 MG per tablet 1-2 [...] NEEDED, Starting on Fri06/18/22 at 1041, Until 06/19/22 at 1608, Sleep, Post-op/Post-Proc FOR RECORDS PERTAINING [...] BE BASED ON THE PRIMARY CLINICAL RECORDS. [facility]. provides no warranty or guarantee of the accuracy or completeness of information in this document.
[2023-08-27 10:29] LABS: Erythrocyte Sedimentation Rate < 1 mm/hr (0-30)
[2023-08-27 10:30] LABS: Absolute Lymphocyte Count 2.08 X10^3/uL (0.83-4.51); Absolute Neutrophil Count 1.2 X10^3/uL (2.0-7.7); Basophil# 0.06 X10^3/uL; Basophil% 1.4 % (0-1); Eosinophil# 0.17 X10^3/uL; Hemoglobin 14.2 g/dL (12.0-15.0); Lymphocyte # 2.08 X10^3/ul (0.83-4.51); Lymphocyte % 49.3 % (19-41); Mean Corp Hgb Conc 32.3 g/dL (32-36); Mean Corpuscular Hgb 29.6 pg (27.0-32.0); Mean Corpuscular Volume 91.7 fL (81-99); Mean Platelet Vol. 10.9 fl (6.2-12.0); Monocyte# 0.71 X10^3/uL; Monocyte% 16.8 % (0-10); NRBC Flagged by Analyzer 0 % (0-5); Neutrophil # 1.19 X10^3/uL (2.7-7.7); Neutrophil % 28.3 % (47-70); Platelet Count 242 K/mm3 (150-450); RBC Distribution Width CV 13.4 % (11.6-14.6); RBC Distribution Width SD 45.5 fl (35.1-43.9); White Blood Count 4.2 K/mm3 (4.4-11.0)
[2023-08-27 11:11] LABS: AST(SGOT) 28 U/L (15-37); Alanine Aminotransfer ALT/SGPT 32 U/L (13-56); Albumin, Serum 3.7 g/dL (3.2-5.0); Alkaline Phosphatase 47 U/L (45-117); CRP 7.47 mg/L (0.0-3.0); EST Glomerular Filtration Rate 88 mL/min (>60); Est Glom Filt Rate - Afr Amer 107 mL/min (>60); Globulin 3.3 g/dL (2.2-4.2)
== END | disposition home or self-care (01) ==
LOC: MTLAB 08:04
PROVIDERS: PCP Family Medicine
DX: Z79.899 Other long term (current) drug therapy (principal)
CPT/HCPCS: 36415; 80076; 82565; 85025; 85652; 86140

== ENCOUNTER → 2023-11-13 | Outpatient (CLI) | payer MEDICARE, OTHER, SELFPAY ==
--- NOTE | 2023-11-13 08:19 | CT_ITS ---
STUDY: CT LEFT SHOULDER REASON FOR EXAM: Female, 68 years old. IDIOPATHIC ASEPTIC NECROSIS OF LEFT SHOULDER RADIATION DOSAGE (If Supplied By Facility): CTDIvol = ( 22.11 ) mGy, DLP = ( 510.84 ) mGycm TECHNIQUE: The patient was scanned in a multi detector CT scanner. High resolution transaxial imaging was performed without the administration of intravenous contrast material. Sagittal and coronal images were reconstructed. Individualized dose optimization techniques were used for this CT. COMPARISON: None. FINDINGS: There is mild osteoarthritis of the glenohumeral articulation, with mild articular joint space narrowing and mild osteoarthritic spurring. Normal glenoid rim, neck and visualized scapula. There is evidence of irregularity with subchondral cystic changes in the medial aspect of the humeral head. Degenerative spur is seen along its inferior margin. Avascular necrosis should be ruled out. Normal coracoid process. Normal visualized lateral clavicle. Normal acromioclavicular articulation. There is a Type II morphology (curved), with a neutral orientation. Normal visualized muscles and soft tissue structures. CT/Extremity Upper without Contra IMPRESSION: Degenerative changes of the glenohumeral joint. Irregularity of the articular surface of the humeral head with subchondral cystic changes. Degenerative spur is seen. Findings of avascular necrosis should be ruled out. Electronically Signed: Johnny Acosta MD at 11:13 EDT ,
== END | disposition home or self-care (01) ==
LOC: CT 08:16
PROVIDERS: PCP Family Medicine; Referring Provider Student in an Organized Health Care Education/Training Program; Visit Provider Student in an Organized Health Care Education/Training Program
DX: M87.012 Idiopathic aseptic necrosis of left shoulder (principal)
CPT/HCPCS: 73200

== ENCOUNTER → 2023-11-17 | Outpatient (CLI) | payer MEDICARE, OTHER, SELFPAY ==
[2023-11-17 12:56] LABS: Erythrocyte Sedimentation Rate 6 mm/hr (0-30)
[2023-11-17 12:58] LABS: Absolute Lymphocyte Count 2.25 X10^3/uL (0.83-4.51); Absolute Neutrophil Count 2.5 X10^3/uL (2.0-7.7); Basophil# 0.08 X10^3/uL; Basophil% 1.4 % (0-1); Eosinophil# 0.11 X10^3/uL; Eosinophils% 1.9 % (0-5); Hematocrit 42.2 % (37-47); Hemoglobin 13.9 g/dL (12.0-15.0); Lymphocyte # 2.25 X10^3/ul (0.83-4.51); Lymphocyte % 39.7 % (19-41); Mean Corp Hgb Conc 32.9 g/dL (32-36); Mean Corpuscular Hgb 30.5 pg (27.0-32.0); Mean Corpuscular Volume 92.5 fL (81-99); Mean Platelet Vol. 9.9 fl (6.2-12.0); Monocyte# 0.76 X10^3/uL; Monocyte% 13.4 % (0-10); NRBC Flagged by Analyzer 0 % (0-5); Neutrophil # 2.46 X10^3/uL (2.7-7.7); Neutrophil % 43.4 % (47-70); Platelet Count 234 K/mm3 (150-450); RBC Distribution Width CV 14.3 % (11.6-14.6); RBC Distribution Width SD 48.4 fl (35.1-43.9); Red Blood Count 4.56 M/mm3 (4.2-5.4); White Blood Count 5.7 K/mm3 (4.4-11.0)
[2023-11-17 13:03] LABS: AST(SGOT) 28 U/L (15-37); Alanine Aminotransfer ALT/SGPT 33 U/L (13-56); Albumin, Serum 3.7 g/dL (3.2-5.0); Alkaline Phosphatase 44 U/L (45-117); Bilirubin, Direct 0.13 mg/dL (0.00-0.30); CRP < 2.90 mg/L (0.0-3.0); Creatinine, Serum 0.74 mg/dL (0.55-1.02); EST Glomerular Filtration Rate 83 mL/min (>60); Est Glom Filt Rate - Afr Amer 101 mL/min (>60); Globulin 3.4 g/dL (2.2-4.2); Protein, Total 7.1 g/dL (6.4-8.2)
== END | disposition home or self-care (01) ==
PROVIDERS: PCP Family Medicine; Referring Provider Student in an Organized Health Care Education/Training Program; Visit Provider Student in an Organized Health Care Education/Training Program
DX: Z79.899 Other long term (current) drug therapy (principal)
CPT/HCPCS: 36415; 80076; 82565; 85025; 85652; 86140

== ENCOUNTER → 2023-12-10 | Outpatient (CLI) | payer MEDICARE, OTHER, SELFPAY ==
--- NOTE | 2023-12-10 10:06 | BI_ITS ---
MAMMOGRAPHY - BILATERAL SCREENING REASON FOR EXAM: Female, 68 years old. Routine annual screening examination. PERTINENT HISTORY: Aunt with breast cancer. Prior left stereotactic breast biopsies. TECHNIQUE: Digital bilateral breast ray (3D mammographic acquisition) in the CC and MLO projections. 2-D mediolateral oblique (MLO) and craniocaudad (CC) views of both breasts were obtained. CAD: Full Field Digital Mammography with Computer Added Detection was performed. COMPARISON: Comparison is made with prior study November 07, 2022 and September 06, 2021. FINDINGS: Breast Composition: The breasts are heterogeneously dense, which may obscure small masses. There are no dominant masses or suspicious calcifications. Stable nodular density with central decreased density in the deep inferior midportion of the left breast. Stable benign-appearing bilateral axillary lymph nodes. No other significant abnormalities are identified. There has been no significant change since the prior study. BI/SCRN MAMM (CAD)W/RAY BILAT IMPRESSION: Stable bilateral screening mammogram. Yearly follow-up mammogram recommended. (A) ASSESSMENT CATEGORY: BIRADS Category 2: Benign. A letter regarding these results will be sent to the patient by the facility within 30 days. Approximately 10% of breast cancers are not detected by mammography. A normal mammogram should not delay biopsy of a clinically suspicious abnormality. [id number] Electronically Signed: Johnny Acosta MD at 11:24 EDT ,
== END | disposition home or self-care (01) ==
LOC: OPBI 10:04
PROVIDERS: PCP Family Medicine; Referring Provider Family Medicine; Visit Provider Family Medicine
DX: Z12.31 Encounter for screening mammogram for malignant neoplasm of breast (principal)
CPT/HCPCS: 77063; 77067

== ENCOUNTER → 2024-02-24 | Outpatient (CLI) | payer MEDICARE, OTHER, SELFPAY ==
[2024-02-24 12:46] LABS: Erythrocyte Sedimentation Rate 4 mm/hr (0-30)
[2024-02-24 13:05] LABS: Absolute Lymphocyte Count 2.04 X10^3/uL (0.83-4.51); Absolute Neutrophil Count 1.7 X10^3/uL (2.0-7.7); Basophil# 0.06 X10^3/uL; Basophil% 1.3 % (0-1); Eosinophil# 0.13 X10^3/uL; Eosinophils% 2.9 % (0-5); Hematocrit 40.4 % (37-47); Hemoglobin 13.5 g/dL (12.0-15.0); Lymphocyte # 2.04 X10^3/ul (0.83-4.51); Lymphocyte % 44.9 % (19-41); Mean Corp Hgb Conc 33.4 g/dL (32-36); Mean Corpuscular Hgb 30.8 pg (27.0-32.0); Mean Platelet Vol. 10.8 fl (6.2-12.0); Monocyte# 0.64 X10^3/uL; Monocyte% 14.1 % (0-10); NRBC Flagged by Analyzer 0 % (0-5); Neutrophil # 1.66 X10^3/uL (2.7-7.7); Neutrophil % 36.6 % (47-70); Platelet Count 216 K/mm3 (150-450); RBC Distribution Width CV 13.3 % (11.6-14.6); RBC Distribution Width SD 45.3 fl (35.1-43.9); Red Blood Count 4.39 M/mm3 (4.2-5.4); White Blood Count 4.5 K/mm3 (4.4-11.0)
[2024-02-24 14:43] LABS: AST(SGOT) 31 U/L (15-37); Alanine Aminotransfer ALT/SGPT 31 U/L (13-56); Albumin, Serum 3.6 g/dL (3.2-5.0); Alkaline Phosphatase 45 U/L (45-117); Bilirubin, Direct 0.13 mg/dL (0.00-0.30); CRP < 2.90 mg/L (0.0-3.0); Creatinine, Serum 0.68 mg/dL (0.55-1.02); EST Glomerular Filtration Rate 90 mL/min (>60); Est Glom Filt Rate - Afr Amer 109 mL/min (>60); Globulin 3.1 g/dL (2.2-4.2); Protein, Total 6.7 g/dL (6.4-8.2)
== END | disposition home or self-care (01) ==
LOC: MTLAB 10:39
PROVIDERS: PCP Family Medicine; Referring Provider Student in an Organized Health Care Education/Training Program; Visit Provider Student in an Organized Health Care Education/Training Program
DX: Z79.899 Other long term (current) drug therapy (principal)
CPT/HCPCS: 36415; 80076; 82565; 85025; 85652; 86140

== ENCOUNTER → 2024-02-26 | Outpatient (CLI) | payer MEDICARE, OTHER, SELFPAY ==
--- NOTE | 2024-02-26 13:57 | RAD_ITS ---
STUDY: X-RAY - CERVICAL SPINE REASON FOR EXAM: Female, 69 years old. RHEUMATOID ARTHRITIS TECHNIQUE: 3 lateral view(s) of the cervical spine were obtained, including flexion and extension. COMPARISON: None FINDINGS: Normal anterior atlantoaxial articulation. Normal odontoid process. Normal cervical lordosis. Mild degenerative changes of the mid cervical vertebral bodies with spurring at the endplates from C4 through C6. Narrowed C5-6 and C6-7 disc space heights. There is limitation in flexion and extension. The soft tissue structures are unremarkable. RAD/Cerv Spine 2 or 3 Views IMPRESSION: Degenerative changes of the visualized cervical spine. Limited flexion and extension Electronically Signed: Jhon Chandler DO at 18:09 EDT ,
== END | disposition home or self-care (01) ==
LOC: RAD.FUTURE 11:42 → MTRAD 13:56
PROVIDERS: PCP Family Medicine; Referring Provider Student in an Organized Health Care Education/Training Program; Visit Provider Student in an Organized Health Care Education/Training Program
DX: M05.79 Rheumatoid arthritis with rheumatoid factor of multiple sites without organ or systems involvement (principal)
CPT/HCPCS: 72040

== ENCOUNTER → 2024-03-19 | Outpatient (CLI) | payer MEDICARE, OTHER, SELFPAY ==
--- NOTE | 2024-03-19 07:58 | CT_ITS ---
STUDY: CT LEFT SHOULDER REASON FOR EXAM: Female, 69 years old. SHOULDER PAIN RADIATION DOSAGE (If Supplied By Facility): CTDIvol = ( 22.11 ) mGy, DLP = ( 585.44 ) mGycm TECHNIQUE: The patient was scanned in a multi detector CT scanner. High resolution transaxial imaging was performed without the administration of intravenous contrast material. Sagittal and coronal images were reconstructed. Individualized dose optimization techniques were used for this CT. COMPARISON: Comparison is made with prior study dated November 13, 2023. FINDINGS: Mild degree of joint space narrowing and osteoarthritis of the glenohumeral joint. Mild osteoarthritic spurring. There is evidence of irregularity with subchondral cystic changes in the medial aspect of the humeral head. Degenerative spur formation is also along its inferior margin. This is unchanged. Possible avascular necrosis should be ruled out. Normal coracoid process. Normal visualized lateral clavicle. Normal acromioclavicular articulation. There is a Type II morphology (curved), with a neutral orientation. Normal visualized muscles and soft tissue structures. CT/Extremity Upper without Contra IMPRESSION: Degenerative changes of the glenohumeral joint as described. There has been no change. Electronically Signed: Johnny Acosta MD at 10:44 EDT ,
== END | disposition home or self-care (01) ==
LOC: CT 07:56
PROVIDERS: PCP Family Medicine; Referring Provider Student in an Organized Health Care Education/Training Program; Visit Provider Student in an Organized Health Care Education/Training Program
DX: M19.012 Primary osteoarthritis, left shoulder (principal)
CPT/HCPCS: 73200

== ENCOUNTER → 2024-04-02 | Outpatient (CLI) | payer MEDICARE, OTHER, SELFPAY ==
[2024-04-02 12:19] LABS: Erythrocyte Sedimentation Rate 1 mm/hr (0-30)
[2024-04-02 12:21] LABS: Absolute Lymphocyte Count 1.96 X10^3/uL (0.83-4.51); Absolute Neutrophil Count 1.6 X10^3/uL (2.0-7.7); Basophil# 0.07 X10^3/uL; Basophil% 1.5 % (0-1); Eosinophil# 0.17 X10^3/uL; Eosinophils% 3.6 % (0-5); Hematocrit 41.2 % (37-47); Hemoglobin 13.4 g/dL (12.0-15.0); Lymphocyte # 1.96 X10^3/ul (0.83-4.51); Lymphocyte % 42.1 % (19-41); Mean Corp Hgb Conc 32.5 g/dL (32-36); Mean Corpuscular Hgb 30.5 pg (27.0-32.0); Mean Corpuscular Volume 93.8 fL (81-99); Mean Platelet Vol. 10.2 fl (6.2-12.0); Monocyte# 0.85 X10^3/uL; Monocyte% 18.2 % (0-10); NRBC Flagged by Analyzer 0 % (0-5); Neutrophil % 34.4 % (47-70); Platelet Count 247 K/mm3 (150-450); RBC Distribution Width CV 13.7 % (11.6-14.6); RBC Distribution Width SD 46.9 fl (35.1-43.9); Red Blood Count 4.39 M/mm3 (4.2-5.4); White Blood Count 4.7 K/mm3 (4.4-11.0)
[2024-04-02 13:06] LABS: CRP < 2.90 mg/L (0.0-3.0)
== END | disposition home or self-care (01) ==
LOC: MTLAB 10:38
PROVIDERS: PCP Family Medicine; Referring Provider Specialist; Visit Provider Specialist
DX: M76.11 Psoas tendinitis, right hip (principal); T84.84XA Pain due to internal orthopedic prosthetic devices, implants and grafts, initial encounter
CPT/HCPCS: 36415; 85025; 85652; 86140

== ENCOUNTER 2024-04-15 05:32 | Day surgery (SDC) | payer MEDICARE, OTHER, SELFPAY ==
[2024-03-19 09:12] LABS: Absolute Lymphocyte Count 1.73 X10^3/uL (0.83-4.51); Absolute Neutrophil Count 1.7 X10^3/uL (2.0-7.7); Basophil# 0.06 X10^3/uL; Basophil% 1.5 % (0-1); Eosinophil# 0.09 X10^3/uL; Eosinophils% 2.2 % (0-5); Hematocrit 40.5 % (37-47); Hemoglobin 13.3 g/dL (12.0-15.0); Lymphocyte # 1.73 X10^3/ul (0.83-4.51); Lymphocyte % 42.4 % (19-41); Mean Corp Hgb Conc 32.8 g/dL (32-36); Mean Corpuscular Hgb 31.2 pg (27.0-32.0); Mean Corpuscular Volume 95.1 fL (81-99); Mean Platelet Vol. 9.6 fl (6.2-12.0); Monocyte# 0.54 X10^3/uL; Monocyte% 13.2 % (0-10); NRBC Flagged by Analyzer 0 % (0-5); Neutrophil # 1.65 X10^3/uL (2.7-7.7); Neutrophil % 40.5 % (47-70); Platelet Count 214 K/mm3 (150-450); RBC Distribution Width CV 13.7 % (11.6-14.6); RBC Distribution Width SD 47.3 fl (35.1-43.9); Red Blood Count 4.26 M/mm3 (4.2-5.4); White Blood Count 4.1 K/mm3 (4.4-11.0)
[2024-03-19 09:34] LABS: Magnesium 2.2 mg/dL (1.6-2.6)
[2024-03-19 09:35] LABS: Albumin, Serum 3.5 g/dL (3.2-5.0); Anion Gap 6 (5-15); BUN 17 mg/dL (7-18); BUN/Creat Ratio 23.8 RATIO (10-20); Calcium,Total 9.1 mg/dL (8.5-10.1); Chloride 110 mmol/L (98-107); Creatinine, Serum 0.72 mg/dL (0.55-1.02); EST Glomerular Filtration Rate 86 mL/min (>60); Est Glom Filt Rate - Afr Amer 104 mL/min (>60); Glucose 87 mg/dL (74-106); Sodium Level 144 mmol/L (136-145)
[2024-04-15] VITALS (12 sets, daily range): BP systolic 110–153; BP diastolic 62–81; PULSE 47–60; RESP 15–16; TEMP 36.1–36.6; O2SAT 95–100; BMI 24.7
[2024-04-15] MEDS: Lactated Ringers 1,000 ML 999 ML IV ×2 (06:19→09:55)
[2024-04-15] MEDS: Magnesium 1 GM over 15 mins IV (06:19)
[2024-04-15] MEDS: Gabapentin 600 MG Tablet PO (06:20)
[2024-04-15] MEDS: Acetaminophen 500 MG Tablet 1000 MG PO (06:20)
[2024-04-15 07:02] LABS: Bedside Glucose 95 mg/dL (74-106)
--- NOTE | 2024-04-15 07:26 | PCM.PRE.AN2 ---
ASA Classification* ASA Classification ASA Classification: 2 Assessment & Plan Anesthesia* Anesthesia Assessment Anesthesia Assessment: Discussed sedation and/or anesthesia options, risks, benefits, and alternatives with patient/parents/legal guardian/POA. Questions invited. The patient/parents/legal guardian/POA seems to understand and agrees to proceed with anesthesia plan. Reviewed the physical assessment, medical history, allergy history and patient home medications list prior to surgery/procedure/anesthetic and documented any changes. Performed airway and anesthesia risk assessments. Anesthesia Type Anesthesia Type: General (see written pre anesthesia record for full assessment) and Block Anesthesia Focused Assessment* Temperature: 97 F Pulse Rate: 59 Blood Pressure: 117/72 Respiratory Rate: 16 Pulse Ox: 100 Airway Assessment Mouth opens: >3 cm Mallampati Score: II Focused Labs Anesthesia Preop lab: CBC WBC 4.7 K/mm3 (4.4-11.0) 04/02/24 10:39 RBC 4.39 M/mm3 (4.2-5.4) 04/02/24 10:39 Hgb 13.4 g/dL (12.0-15.0) 04/02/24 10:39 Hct 41.2 % (37-47) 04/02/24 10:39 Plt Count 247 K/mm3 (150-450) 04/02/24 10:39 CHEMISTRY Potassium 4.0 mmol/L (3.5-5.1) 03/19/24 08:34 Sodium 144 mmol/L (136-145) 03/19/24 08:34 Magnesium 2.2 mg/dL (1.6-2.6) 03/19/24 08:34 BUN 17 mg/dL (7-18) 03/19/24 08:34 Creatinine 0.72 mg/dL (0.55-1.02) 03/19/24 08:34 Glucose 87 mg/dL (74-106) 03/19/24 08:34 POC Glucose 95 mg/dL (74-106) 04/15/24 06:06 TSH 2.23 uIU/mL (0.358-3.74) 05/31/22 10:14 COAG Pre-Assessment Diagnosis/Proposed Procedure Planned Operative Procedure(s): LEFT REVERSE TOTAL SHOULDER ARTHROPLASTY Anesthesia History 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 When Was Last Pacemaker Check QUESTION #4 FULL TEXT: You/Your Family Experience fever (hyperthermia) with Anesthesia Last Oral Intake Last Oral intake: Last Oral Intake NPO since 04:00 04/15/24 06:02 Meds taken in AM with sips of Yes 04/15/24 06:02 water? 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 Female Yes 03/17/24 09:22 HX of Motion Sickness No 03/17/24 09:22 HX of N/V After Surgery No 03/17/24 09:22 Non-Smoker Yes 03/17/24 09:22 Duration of Surgery greater Yes 03/17/24 09:22 than 60 minutes Number of Risk Factors 3 03/17/24 09:22 PONV Score Moderate Risk 03/17/24 09:22 Height & Weight Height & Weight: Anesthesia: Height & Weight Height 5 ft 04/15/24 06:02 Weight: 57.606 kg 04/15/24 06:02 Body Mass Index (BMI) 24.7 04/15/24 06:02 Respiratory Assessment Respiratory Assessment - business mail entry clerk: Respiratory Tract Infection Hx - business mail 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 Has anyone observed you stop No 03/17/24 09:22 breathing during sleep? STOP Results Negative 03/17/24 09:22 QUESTION #5 FULL TEXT : Do you snore loudly (louder than talking or can be heard through closed doors)? 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 Specify any problems Hx of Preganancy in last 3 No 03/17/24 09:22 Months Nurse Filling Out Transfusion DSCHRIBER 03/17/24 09:22 & Questions: Date: 03/17/24 03/17/24 09:22 Time: 09:03/17/24 09:22 Patient unable to answer at this time (ie. confused, unrespo /Reproduction History /Reproductive History - business mail entry clerk: /Reproductive Hx- business mail entry clerk Hx Now No 03/17/24 09:22 Gestational Age (in weeks): EDC: Hx Hx Para Hx Section SAB No 03/17/24 09:22 Active Medications Active Medications: Current Medications Generic Name Dose Route Start Last Admin Trade Name Tone PRN Reason Stop Dose Admin Acetaminophen 1,000 mg 04/15/24 07:30 04/15/24 06:20 Acetaminophen 500 Mg Tablet PO 04/15/24 07:31 1,000 mg X1 ONE Administration Sodium Chloride 77.4 ml/ 0 ml 04/15/24 07:30 Ropivacaine 200 mg/ OPERA.SITE 04/15/24 07:31 Epinephrine HCl 0.6 mg/ X1 ONE Ketorolac Tromethamine 30 mg/ Morphine Sulfate 5 mg Dexamethasone Sodium Phosphate 10 mg 04/15/24 07:30 Dexamethasone 10 Mg/Ml Vial IV 04/15/24 07:31 X1 ONE Gabapentin 600 mg 04/15/24 07:30 04/15/24 06:20 Gabapentin 600 Mg Tablet PO 04/15/24 07:31 600 mg X1 ONE Administration Lactated Ringer's 1,000 mls @ 999 mls/hr 04/15/24 07:30 04/15/24 06:19 IV 04/15/24 08:30 999 mls/hr .Q1H1M GIGI Administration Tranexamic Acid 1,000 mg/ 110 mls @ 660 mls/hr 04/15/24 07:30 Sodium Chloride IV 04/15/24 07:39 X1 ONE Lactated Ringer's 1,000 mls @ 999 mls/hr 04/15/24 08:30 IV 04/15/24 09:30 .Q1H1M GIGI Lactated Ringer's 1,000 mls @ 125 mls/hr 04/15/24 09:30 IV 04/15/24 17:29 .Q8H GIGI Cefazolin Sodium 2 gm/ N/A 20 mls @ 400 mls/hr 04/15/24 07:30 IV 04/15/24 07:32 PREOP ONE Magnesium Sulfate 1 gm/ 102 mls @ 408 mls/hr 04/15/24 07:30 04/15/24 06:19 Dextrose IV 04/15/24 07:44 408 mls/hr X1 ONE Administration Insulin Human Lispro 1 - 6 unit 04/15/24 07:30 Insulin Lispro 100 Unit/Ml Insuln.Pen SC 04/15/24 13:30 Q4H PRN PRN BG>/= 180, SEE PROTOCOL Protocol PFSH Medical History Wears glasses Post-menopausal Back pain Non-smoker History of pain when walking History of echocardiogram Cardiology follow-up encounter Pulmonary emboli Takotsubo cardiomyopathy Migraine Osteoporosis Rheumatoid arthritis Home Medications ?Medication ?Instructions ?Recorded ?Last Taken ?Type calcium carbonate 2,000 mg PO QHS 08/02/15 06/03/21 History etanercept 50 mg/mL (1 mL) 50 mg SQ FR 08/02/15 06/01/21 History subcutaneous syringe (Enbrel) methotrexate sodium 2.5 mg tablet 10 mg PO MO 08/09/21 04/05/24 History propranolol 20 mg tablet 20 mg PO BID 08/09/21 04/15/24 04:00 History multivitamin 1 tab PO DAILY 10/08/21 Unknown History omega-3 fatty acids 1,000 mg 2,000 mg PO DAILY 10/08/21 Unknown History capsule amitriptyline 100 mg tablet 75 mg PO QHS 01/03/23 Unknown History eptinezumab-jjmr 100 mg/mL 100 mg IV [id number] 01/03/23 Unknown History intravenous solution (Vyepti) folic acid 1 mg tablet 1 mg PO DAILY 01/03/23 Unknown History acetaminophen 500 mg tablet 1,000 mg PO QHS 03/17/24 Unknown History (Acetaminophen Extra Strength) calcium 200 mg-vitamin D3 1.25 3 cap PO DAILY 03/17/24 Unknown History mcg-magnesium 50 mg capsule glucosamine 375 uj-vjfgbmjmt-ilp 2 tab PO DAILY 03/17/24 Unknown History no1 500 mg-C 15 mg-eva 0.5 mg tablet (Nrxkpufpqxx-Kqjbgavwyjb-PEB Complex) hydroxychloroquine 200 mg tablet 200 mg PO BID 03/17/24 Unknown History polyethylene glycol 3350 17 17 g PO DAILY 03/17/24 Unknown History gram/dose oral powder (Miralax) turmeric 400 mg capsule 400 mg PO DAILY 03/17/24 Unknown History vitamin A-vitamin C-vit E-min 2 tab PO QHS 03/17/24 Unknown History tablet (Ocutabs tablet) Allergy/AdvReac Type Severity Reaction Status Date / Time diclofenac AdvReac Intermediate Diarrhea Verified 04/15/24 06:00 etodolac (From Lodine) AdvReac Diarrhea Verified 04/15/24 06:00 Family History Other Cancer Heart disease Surgical History History of esophagogastroduodenoscopy (EGD) Hx of colonoscopy Hx of oral surgery Hx of total hip arthroplasty History of bunionectomy of right great toe History of bunionectomy of left great toe Hx of tonsillectomy History of left heart catheterization (06/05/21) History of appendectomy Social History Smoking Status: Never smoker alcohol intake: never substance use type: does not use caffeine: Yes Type: coffee Number of servings: 3 Review of Systems (Anesthesia) ROS Narrative System reviewed and no additional complaints, except as documented.
--- NOTE | 2024-04-15 07:30 | SHO_PTH ---
PATIENT: CARLOS WILDER LOC: [facility] [place] U#:[id number] AGE/SX: 69/F ROOM: RE04/15/[address]: Dr. Jorge Gomez DO : 1955 BED: DIS: 04/15/2024 SPEC #: [id number] RECD: 04/15/24 13:23 STATUS: LUX GINO #: [id number] CARL: 04/15/24 07:[address]: Jorge Gomez DEPT: SURGICAL PATHOLOGY RECD BY: Arabella Hines ENTERED: 04/15/24 13:56 SP TYPE: HUMERUS OTHR DR: Dr. Joanne Arnold MD Tissues: Humerus, NOS Procedures: Decalcification bone/plaque Surgery Specimen Level IV HEADER OPERATION: Total shoulder replacement PRE-OP DIAGNOSIS: Severe glnohumeral osteoarthritis, possible avn, arthritis TISSUE SUBMITTED: Left humeral head MICROSCOPIC DIAGNOSIS Bone and tissue of left shoulder, total shoulder resection: Severe degenerative joint disease. Mild synovial hyperplasia. AM: 04/21/2024 MICROSCOPIC DESCRIPTION Slides are reviewed. GROSS DESCRIPTION Received is one container labeled with the patient's name and designated bone and soft tissue. The specimen consists of a humeral head measuring 5.0 x 5.0 x 2.5 cm. The articular surface shows areas of erosion, eburnation and osteophyte formation. Also received are two pieces of soft tissue mixed with fibrocartilaginous tissue measuring in aggregate 4.0 x 2.5 x 1.0 cm. Heater Installer sections are submitted in two cassettes as follows: 1 - soft tissue, 2 - humeral head after decalcification. / BRIDGET: TC:5 04/15/2024 CPT: 94682, 34351
[2024-04-15] MEDS: Cefazolin 2 GM in Syringe IV (07:47)
[2024-04-15] MEDS: TXA 1000mg in NS100 100ml (IVPB at Incision) 660 MG IV (08:00)
[2024-04-15] MEDS: dexAMETHasone 10 MG/ML Vial IV (08:04)
--- NOTE | 2024-04-15 09:24 | PCM.OPRPT ---
Report of Operation Date of Procedure: 04/15/24 Description of Surgical Findings:: Preoperative diagnosis: 1. Left shoulder osteoarthritis 2. Left humeral head avascular necrosis Postoperative diagnosis: 1. Left shoulder osteoarthritis 2. Left humeral head avascular necrosis Procedure: Left reverse total shoulder arthroplasty Surgeon: Jorge Gomez DO Hi Lo Driver: Daniela Carlos PA-C Anesthesia: General endotracheal A Auxiliary: Agustín Toro CRNA Complications: None apparent Drains: None Estimated blood loss: 100 cc Urinary output: None IV fluids: 1100 cc crystalloid Specimens: Left humeral head Surgical implants: Tornier Aequalis PerFORM+ reversed baseplate 25mm diameter full wedge, standard glenosphere cobalt chrome 36 mm diameter, Tornier perform inlay stem size #2, + 0 mm retentive polyethylene insert, short central post and peripheral screws x4. Surgical indications: This is a 69-year-old female with persistent left shoulder pain. She did have worsening symptoms over the last several months. X-rays and CT scan demonstrated osteoarthritic changes as well as avascular necrosis changes in the humeral head. Patient has a history of rheumatoid arthritis and use of chronic steroids. I did have concerned about her rotator cuff competency as well. I recommended a reverse shoulder arthroplasty. We obtained a preoperative CT scan for planning. The risks, benefits, alternatives the procedure was reviewed with the patient and he agreed to proceed. Risks included but were not limited to bleeding, infection, instability, loss of life or limb, risk of anesthesia, neurovascular injury, persistent pain, stiffness, prolonged immobilization, need for additional surgery, loosening of orthopedic hardware. She expressed understanding and wished to proceed with surgery. Surgical details: Patient arrived to [facility] morning of the procedure and was greeted by the same day surgery staff. Prior to her procedure, I greeted the patient in the preoperative holding area I identified the patient by name, record number, and date of . Informed consent was confirmed. The operative extremity was marked. All questions were answered to patient satisfaction. An interscalene block was administered prior to procedure by anesthesia staff for postoperative and intraoperative analgesia. At time of her procedure, patient was brought to the operative suite and positioned supine on a standard table with a beachchair attachment. General anesthesia was induced after all bony prominences were well-padded. Endotracheal tube was placed. After adequate anesthesia and securing the tube, we prepared the patient to be positioned in the beachchair position. A well-padded greenskeeper head was applied. The nonoperative extremity was placed in a well arm ricardo. He was then brought into the beachchair position after we confirmed an appropriate blood pressure. We then spun the bed 45 degrees. The operative extremity was then prepared. In the butterfly wing of the bed was removed and a well-padded torso strap was applied to secure the patient to the bed. The operative extremity was now free. We then prepped and draped the right upper extremity in normal, sterile orthopedic fashion. We then performed a timeout with all parties in attendance in agreement with the side, site, and operation be performed. 2 g Ancef was administered prior to incision by anesthesia staff, as well as 1 g TXA IV. No concerns were voiced and we elected to proceed. I first marked a standard deltopectoral incision just lateral to the coracoid process in line with the long axis of the humerus. Skin was sharply incised with 10 blade scalpel. I then dissected bluntly through the subcutaneous layers and found the fat stripe between the deltoid and pectoralis major. The cephalic vein was then identified and protected. It was retracted laterally with the deltoid. I then bluntly dissected underneath the deltoid with a Hanna elevator. Maria Teresa retractor was placed. The upper 1 cm of the pectoralis major was released. I then identified the long head of the biceps tendon in the intertubercular groove. This was tenodesed in situ with #2 FiberWire. I then amputated the biceps proximal to the tenodesis site and followed the tendon to the supraglenoid tubercle where it was amputated. This identified the lesser and greater tuberosities. The supraspinatus was completely torn and retracted with an exposed greater tuberosity. I then performed a subscapularis peel while rotating the humerus externally. I tagged the subscapularis for possible repair later with a tagging suture. Humeral head was then dislocated anteriorly. Appropriate access to the humeral head was confirmed. I then subluxed the humeral head posteriorly with a Fukuda retractor placed around the posterior lip of the glenoid. Inferior capsule was tension. I was able to palpate the axillary nerve. Inferior capsule was then released to the 4 o'clock position of the glenoid face. 3 sided subscapularis release was performed with Bovie cautery. I then remove the Fukuda retractor and redislocated the shoulder anteriorly. I then made a anatomic neck cut of the cartilaginous surface of the humeral head. Sizing plate for a size # 2 stem was utilized to determine appropriate reaming size. A central pin was placed engaging the lateral cortex of the humerus. A size # 2 reamer was used to ream the humeral metaphysis and prepare for the inlay stem. A canal finding reamer was utilized prior to sequential broaching to a size # 2 short stem with excellent rotational and axial purchase in the humerus. I remove the broach handle left the size # [address] I then subluxed the humerus posterior to the glenoid. I then placed retractors around the posterior and anterior glenoid to expose the glenoid. Glenoid labrum was removed with Bovie cautery protecting the axillary nerve. We then used the full wedge guide from Jet to position our centering pin, exiting approximately 25 mm from the joint surface along the anterior scapula. Guide was removed and pin was analyzed and compared to preoperative planning. It appeared to be in appropriate position. The augmented reamer was then used to ream for our wedge with bleeding cancellous bone present. We then removed the reamer and used the cannulated drill for the short central post. Post and baseplate was assembled on the back table. We then inserted the baseplate and central post the assembled baseplate to an appropriate depth with good press-fit purchase. A [place] was used to confirm depth. Peripheral screws then were placed in the peripheral holes with good purchase. The baseplate had excellent purchase and the entire scapula would rotate with rotation of the baseplate. We then impacted the 36 mm glenosphere with a standard eccentricity and tightened the locking screw mechanism. We then removed retractors and turned our attention back to the humerus. I placed a standard +0 millimeters retentive polyethylene insert. I then reduced the shoulder. There was excellent range of motion and stability in all planes of motion. We selected this as our final size. We removed trials from the humerus after final dislocation. I copiously irrigated the canal. Broach was placed on hand and then impacted to an appropriate depth. Final +0 mm retentive polyethylene insert was placed. Final reduction was then performed. The subscapularis was then identified with a tagging suture. Repair would have been likely under undue tension and likely failed. I elected to not perform a subscapularis repair. We then copiously irrigated the wound with sterile Betadine and normal saline solution. We reapproximated the interval with 0 Vicryl suture. Subcutaneous layers were reapproximated with 2 -0 Vicryl suture. Skin was finally running V-Loc 3-0 Monocryl suture and Dermabond. A sterile silver Mepilex dressing was applied. Patient was then placed in an ultra sling. Patient tolerated procedure well without complication. He was positioned back in the supine position extubated in the operative suite. He was transferred to the [facility] and subsequently to PACU in stable condition. Need for skilled assistant infant toddler teacher: Daniela Carlos PA-C was critical to the outcome of the case. During the course of the procedure the physician assistant infant toddler teacher played a vital role. Her intimate knowledge of my steps in the procedure aided in safe and expedient completion of the procedure. The PA played a vital role in positioning particularly in obtaining the appropriate positioning. The PA was also vital in the retraction of soft tissues during the exposure and protecting vital structures. The PA was also vital and protecting soft tissues during times of bony cuts. She also played a vital role in closure with my direct supervision. The PA was also important during reduction and dislocation of the joint and trials intraoperatively. Intraoperative medications: 2 g Ancef IV, 1 g TXA IV x2 Post Operative Plan: Weightbearing: Nonweightbearing left upper extremity, okay for pendulums. Range of motion of wrist elbow and hand as tolerated. Antibiotics: 2 g Ancef IV prior to incision, 24 hours IV antibiotics postoperatively DVT Prophylaxis: Xarelto 10 mg once daily starting postoperative day #1 due to history of pulmonary embolism. SCDs and DEANNE chavez. Early mobilization. Dixon: None Dressing: Maintain silver dressing x7 days. Okay to shower dressing on started on day 4 X-Rays: 2 weeks postop in the office Pain Medication: Oxycodone Rx upon discharge Follow-up: 2 weeks post-operatively in the office Procedure Start Time: 08:13 Procedure Stop Time: 09:32
--- NOTE | 2024-04-15 09:45 | PCM.POST.ANE ---
Anesthesia: Postop Eval I Current Vital Signs Temperature: 98 F Pulse Rate: 50 Blood Pressure: 130/62 Respiratory Rate: 16 Pulse Ox: 95 Assessment Airway patent: Yes Spontaneous unlabored respirations: Yes nausea: No Vomiting: No Anesthesia Complication: No Fluid Hydration Crystalloid volume administer (ml): 10 Total IV fluid infused: 10 Progress Note Anesthesia document: Postop Eval 1 completed: Yes
--- NOTE | 2024-04-15 10:00 | RAD_ITS ---
STUDY: X-RAY - LEFT SHOULDER REASON FOR EXAM: Female, 69 years old. Post op -- AP and Lateral X-Ray of operative shoulder in PACU. TECHNIQUE: 2 views of the left shoulder. COMPARISON: Left shoulder radiographs dated 12/04/2007. FINDINGS: There is a new postoperative changes related to reverse left shoulder arthroplasty. There is no periprosthetic fracture. There is surrounding soft tissue gas, compatible with recent surgery. There is mild acromioclavicular arthrosis. Normal acromion. The soft tissue structures are otherwise unremarkable. Normal visualized pulmonary apex. There is a cardiac monitoring lead overlying the left upper chest. RAD/Shoulder min 2 Views IMPRESSION: New postoperative changes related to reverse left shoulder arthroplasty. Electronically Signed: Hugo Seals MD at 10:36 EDT ,
[2024-04-15 11:52] LABS: Bedside Glucose 105 mg/dL (74-106)
--- NOTE | 2024-04-15 12:53 | SUR.PHASEII ---
OT in and saw pt, pt okay for discharge from OT stand point
== END 2024-04-15 12:59 | disposition home or self-care (01) ==
LOC: SDC 05:33 → AC 05:33
PROVIDERS: Anesthesiology; PCP Family Medicine; Referring Provider Student in an Organized Health Care Education/Training Program; Visit Provider Student in an Organized Health Care Education/Training Program
PROC: (CPT 23472; principal; 2024-04-15 07:00)
DX: M19.012 Primary osteoarthritis, left shoulder (principal); M06.9 Rheumatoid arthritis, unspecified; M87.822 Other osteonecrosis, left humerus; M75.100 Unspecified rotator cuff tear or rupture of unspecified shoulder, not specified as traumatic; Z90.49 Acquired absence of other specified parts of digestive tract; Z86.16 Personal history of COVID-19; I25.2 Old myocardial infarction; Z87.891 Personal history of nicotine dependence; M81.0 Age-related osteoporosis without current pathological fracture; Z86.711 Personal history of pulmonary embolism; Z79.899 Other long term (current) drug therapy
CPT/HCPCS: 23472; 36415; 73030; 80048; 82040; 82962; 83735; 85025; 87081; 88305; 88311; 93005; 97166; C1713; C1776; J7120; J2405; J3475

== ENCOUNTER → 2024-05-24 | Outpatient (CLI) | payer MEDICARE, OTHER, SELFPAY ==
[2024-05-24 12:18] LABS: Erythrocyte Sedimentation Rate 6 mm/hr (0-30)
[2024-05-24 12:22] LABS: Absolute Lymphocyte Count 2.14 X10^3/uL (0.83-4.51); Absolute Neutrophil Count 2.1 X10^3/uL (2.0-7.7); Basophil# 0.07 X10^3/uL; Basophil% 1.3 % (0-1); Eosinophil# 0.18 X10^3/uL; Eosinophils% 3.3 % (0-5); Hematocrit 39.5 % (37-47); Hemoglobin 13.1 g/dL (12.0-15.0); Lymphocyte # 2.14 X10^3/ul (0.83-4.51); Lymphocyte % 39.3 % (19-41); Mean Corp Hgb Conc 33.2 g/dL (32-36); Mean Corpuscular Hgb 31.2 pg (27.0-32.0); Mean Platelet Vol. 10.1 fl (6.2-12.0); Monocyte# 0.92 X10^3/uL; Monocyte% 16.9 % (0-10); NRBC Flagged by Analyzer 0 % (0-5); Neutrophil # 2.07 X10^3/uL (2.7-7.7); Neutrophil % 37.9 % (47-70); Platelet Count 207 K/mm3 (150-450); RBC Distribution Width CV 14.2 % (11.6-14.6); RBC Distribution Width SD 48.6 fl (35.1-43.9); White Blood Count 5.5 K/mm3 (4.4-11.0)
[2024-05-24 12:59] LABS: AST(SGOT) 25 U/L (15-37); Alanine Aminotransfer ALT/SGPT 26 U/L (13-56); Albumin, Serum 3.5 g/dL (3.2-5.0); Alkaline Phosphatase 66 U/L (45-117); CRP 3.44 mg/L (0.0-3.0); Creatinine, Serum 0.63 mg/dL (0.55-1.02); EST Glomerular Filtration Rate 100 mL/min (>60); Est Glom Filt Rate - Afr Amer 121 mL/min (>60); Globulin 3.5 g/dL (2.2-4.2)
== END | disposition home or self-care (01) ==
PROVIDERS: PCP Family Medicine; Referring Provider Student in an Organized Health Care Education/Training Program; Visit Provider Student in an Organized Health Care Education/Training Program
DX: Z51.81 Encounter for therapeutic drug level monitoring (principal); Z79.899 Other long term (current) drug therapy
CPT/HCPCS: 36415; 80076; 82565; 85025; 85652; 86140

== ENCOUNTER → 2024-08-06 | Outpatient (CLI) | payer MEDICARE, OTHER, SELFPAY ==
[2024-08-06 17:54] LABS: Absolute Lymphocyte Count 2.61 X10^3/uL (0.83-4.51); Absolute Neutrophil Count 1.7 X10^3/uL (2.0-7.7); Basophil# 0.06 X10^3/uL; Basophil% 1.2 % (0-1); Eosinophil# 0.14 X10^3/uL; Eosinophils% 2.7 % (0-5); Hematocrit 44.3 % (37-47); Hemoglobin 14.6 g/dL (12.0-15.0); Lymphocyte # 2.61 X10^3/ul (0.83-4.51); Lymphocyte % 50.5 % (19-41); Mean Corpuscular Hgb 30.2 pg (27.0-32.0); Mean Corpuscular Volume 91.5 fL (81-99); Mean Platelet Vol. 10.5 fl (6.2-12.0); Monocyte# 0.63 X10^3/uL; Monocyte% 12.2 % (0-10); NRBC Flagged by Analyzer 0 % (0-5); Neutrophil # 1.73 X10^3/uL (2.7-7.7); Neutrophil % 33.4 % (47-70); Platelet Count 216 K/mm3 (150-450); RBC Distribution Width CV 14.7 % (11.6-14.6); RBC Distribution Width SD 49.1 fl (35.1-43.9); Red Blood Count 4.84 M/mm3 (4.2-5.4); White Blood Count 5.2 K/mm3 (4.4-11.0)
[2024-08-06 18:08] LABS: Erythrocyte Sedimentation Rate 1 mm/hr (0-30)
[2024-08-06 18:22] LABS: AST(SGOT) 25 U/L (15-37); Alanine Aminotransfer ALT/SGPT 31 U/L (13-56); Albumin, Serum 3.9 g/dL (3.2-5.0); Alkaline Phosphatase 59 U/L (45-117); Bilirubin, Direct 0.11 mg/dL (0.00-0.30); CRP < 2.90 mg/L (0.0-3.0); Creatinine, Serum 0.79 mg/dL (0.55-1.02); EST Glomerular Filtration Rate 77 mL/min (>60); Est Glom Filt Rate - Afr Amer 93 mL/min (>60); Globulin 3.4 g/dL (2.2-4.2); Protein, Total 7.3 g/dL (6.4-8.2)
== END | disposition home or self-care (01) ==
LOC: MTLAB 14:59
PROVIDERS: PCP Family Medicine; Referring Provider Student in an Organized Health Care Education/Training Program; Visit Provider Student in an Organized Health Care Education/Training Program
DX: M06.9 Rheumatoid arthritis, unspecified (principal); Z79.631 Long term (current) use of 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 agent
CPT/HCPCS: 36415; 80076; 82565; 85025; 85652; 86140

== ENCOUNTER → 2024-08-19 | Outpatient (CLI) | payer MEDICARE, OTHER, SELFPAY ==
--- NOTE | 2024-08-19 15:57 | CT_ITS ---
PROCEDURE: EXTREMITY UPPER WITHOUT CONTRA REASON FOR EXAM: Status post recent left shoulder replacement. Patient is now experiencing pain. TECHNIQUE: Multiple axial tomographic images of the left shoulder were obtained without intravenous contrast administration. Coronal and sagittal reconstruction was obtained as well. COMPARISON: None. FINDINGS: Bones: No evidence of fracture. Joints: The patient is status post left reverse shoulder replacement. There is good alignment. No evidence of subluxation or fracture. There is evidence of degenerative changes of the left acromioclavicular joint. Soft Tissues: Unremarkable. CT/Extremity Upper without Contra IMPRESSION: Status post left reverse shoulder replacement. There is good alignment. No ac rolando abnormality is seen. One or more dose reduction techniques were used (e.g., Automated exposure contr ol, adjustment of the mA and/or kV according to patient size, use of iterative reconstruction technique). Reading Location: [place] [id number]
== END | disposition home or self-care (01) ==
LOC: CT 15:52
PROVIDERS: PCP Family Medicine; Referring Provider Physician Assistant Surgical; Visit Provider Physician Assistant Surgical
DX: Z96.612 Presence of left artificial shoulder joint (principal); T84.84XA Pain due to internal orthopedic prosthetic devices, implants and grafts, initial encounter
CPT/HCPCS: 73200

== ENCOUNTER → 2024-08-31 | Outpatient (CLI) | payer MEDICARE, OTHER, SELFPAY ==
[2024-08-31 20:09] LABS: Vitamin D,25 Hydroxy 46.1 ng/mL (30-100)
== END | disposition home or self-care (01) ==
LOC: MTLAB 11:47
PROVIDERS: PCP Family Medicine; Referring Provider Student in an Organized Health Care Education/Training Program; Visit Provider Student in an Organized Health Care Education/Training Program
DX: M89.9 Disorder of bone, unspecified (principal); M80.00XD Age-related osteoporosis with current pathological fracture, unspecified site, subsequent encounter for fracture with routine healing
CPT/HCPCS: 36415; 82306

== ENCOUNTER → 2024-10-06 | Outpatient (CLI) | payer MEDICARE, OTHER, SELFPAY ==
[2024-10-06 15:39] LABS: Cholesterol 225 mg/dL (<=200); High Density Lipoprotein 73 mg/dL; Low Density Lipoprotein Calc. 134 mg/dL; Triglycerides 88 mg/dL; Very Low Density Lipoprotein 18 mg/dL (5-40); cholesterol:hdl ratio screen 3.07
== END | disposition home or self-care (01) ==
LOC: MTLAB 08:54
PROVIDERS: PCP Family Medicine; Referring Provider Nurse Practitioner Family; Visit Provider Nurse Practitioner Family
DX: E78.5 Hyperlipidemia, unspecified (principal)
CPT/HCPCS: 36415; 80061

== ENCOUNTER → 2024-10-25 | Outpatient (CLI) | payer MEDICARE, OTHER, SELFPAY ==
[2024-10-25 13:31] LABS: Absolute Lymphocyte Count 1.34 X10^3/uL (0.83-4.51); Basophil# 0.07 X10^3/uL; Basophil% 1.1 % (0-1); Eosinophil# 0.23 X10^3/uL; Eosinophils% 3.6 % (0-5); Hematocrit 33.1 % (37-47); Hemoglobin 10.7 g/dL (12.0-15.0); Lymphocyte # 1.34 X10^3/ul (0.83-4.51); Lymphocyte % 20.8 % (19-41); Mean Corp Hgb Conc 32.3 g/dL (32-36); Mean Corpuscular Hgb 31.6 pg (27.0-32.0); Mean Corpuscular Volume 97.6 fL (81-99); Mean Platelet Vol. 9.1 fl (6.2-12.0); Monocyte% 12.4 % (0-10); NRBC Flagged by Analyzer 0 % (0-5); Neutrophil # 3.98 X10^3/uL (2.7-7.7); Neutrophil % 61.6 % (47-70); Platelet Count 470 K/mm3 (150-450); RBC Distribution Width CV 14.9 % (11.6-14.6); RBC Distribution Width SD 53.3 fl (35.1-43.9); Red Blood Count 3.39 M/mm3 (4.2-5.4); White Blood Count 6.5 K/mm3 (4.4-11.0)
[2024-10-25 13:34] LABS: Erythrocyte Sedimentation Rate 10 mm/hr (0-30)
[2024-10-25 14:47] LABS: AST(SGOT) 28 U/L (<=31); Alanine Aminotransfer ALT/SGPT 23 U/L (<=34); Alkaline Phosphatase 98 U/L (35-104); Bilirubin, Direct 0.13 mg/dL (0.00-0.30); Creatinine, Serum 0.61 mg/dL (0.70-1.20); EST Glomerular Filtration Rate 97 (>60); Globulin 2.8 g/dL (2.2-4.2); Protein, Total 6.7 g/dL (5.9-8.4); Total Bilirubin 0.28 mg/dL (0.00-1.30)
== END | disposition home or self-care (01) ==
LOC: MTLAB 09:24
PROVIDERS: PCP Family Medicine; Referring Provider Student in an Organized Health Care Education/Training Program; Visit Provider Student in an Organized Health Care Education/Training Program
DX: M06.9 Rheumatoid arthritis, unspecified (principal); Z79.621 Long term (current) use of calcineurin inhibitor
CPT/HCPCS: 36415; 80076; 82565; 85025; 85652; 86140

== ENCOUNTER → 2024-12-16 | Outpatient (CLI) | payer MEDICARE, OTHER, SELFPAY ==
--- NOTE | 2024-12-16 10:00 | BI_ITS ---
EXAM: SCRN MAMM (CAD)W/RAY BILAT DATE: 12/16/2024 CLINICAL HISTORY: F, Age 69 y/o , SCREENING Aunt with breast cancer. BREAST CANCER RISK ASSESSMENT: Not assessed. TECHNIQUE: Bilateral screening digital breast tomosynthesis with 2D and 3D images. Computer aided detection. COMPARISON: Prior exam(s) dated December 16, 2024.. FINDINGS: TISSUE DENSITY: The breast tissue is heterogeneously dense, which may obscure small masses. Bilateral Breast Mammographic Findings: No significant masses, calcifications or other abnormalities are identified. No suspicious masses, areas of developing architectural distortion, or suspicious calcifications. There has been no significant interval change. BI/SCRN MAMM (CAD)W/RAY BILAT IMPRESSION: Stable examination OVERALL FINAL ASSESSMENT BI-RADS 1: NEGATIVE. RECOMMEND ANNUAL MAMMOGRAPHIC SCREENING. RECOMMENDATION: Routine annual follow-up in 1 Year A letter with findings and recommendations will be mailed to the patient. Reading Location: [place] [address]
--- OUTSIDE RECORDS SUMMARY | 2024-12-16 10:44 | XMS RPT_ITS | CCD ---
Author Organization [facility] Care Team Providers Care Change Booth Attendant Name Role Phone Joanne Arnold Unavailable Sebastian Felder Unavailable Unavailable Sebastian Felder Unavailable Unavailable Joanne Arnold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 Provider [phone] Joanne Arnold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 Provider [phone] Dr. Joanne Arnold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 Provider Dr. Manuel Espino Emergency Provider [phone] Jorge Soto Attending Provider Dr. Jorge Soto Admit Provider Dr. Tania Seals Other Provider Dr. Irvin Geiger Attending Provider Dr. Irvin Geiger Other Provider Dr. Tania Seals Attending Provider Dr. Joanne Arnold Referring Provider Kory BIOLOGICAL AIDE, BIOLOGICAL AIDELacy Sanchez Attending Provider Dr. Joanne Arnold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 Provider Dr. Irvin Geiger Attending Provider Joanne Arnold MD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 Provider Unavailable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 Provider UnavailJoanne Springer MD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 Provider MICHAELA ALARCON Attending Unavailable JOANNE ARNOLD Referring Unavailable JOANNE ARNOLD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 Unavailable ALARCON, MICHAELA Attending Unavailable ALARCON, MICHAELA Referring Unavailable JOLLIFF, JOANNE S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 Unavailable ALARCON, MICHAELA Attending Unavailable ALARCON, MICHAELA Referring Unavailable JOLLIFF, JOANNE S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 Unavailable ALARCON, MICHAELA Attending Unavailable JOLLIFF, JOANNE S Referring Unavailable JOLLIFF, JOANNE S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 Unavailable Joanne Arnold MD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 Provider DR JOANNE ARNOLD MD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 Physician MUKESH RAMIREZ DO Attending Unavailable CLAYTON MARSH, DR. LOPEZ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 Unavailable Joanne Arnold MD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 Provider [phone] Dr. Joanne Arnold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 Provider Dr. Joanne Arnold Referring Provider Roof BIOLOGICAL AIDE, BIOLOGICAL AIDE-Mal Sanchez Attending Provider Joanne Arnold MD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 Provider JOLLIFF, JOANNE DELIA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 Unavailable FALLS, SARA LOBO Attending Unavailabl e FALLS, SARA LOBO Referring Unavailabl e JOLLIFF, JOANNE DELIA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 Unavailable JOLLIFF, JOANNE DELIA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 Unavailable ANDREA EWING Referring Unavailable JOLLIFF, JOANNE DELIA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 Unavailable JOLLIFF, JOANNE DELIA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 Unavailable JOLLIFF, JOANNE DELIA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 Unavailable FALLS, SARA LOBO Referring Unavailabl e JOLLIFF, JOANNE DELIA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 Unavailable FALLS, SARA LOBO Attending Unavailabl e FALLS, SARA LOBO Referring Unavailabl e JOLLIFF, JOANNE DELIA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 Unavailable FALLS, SARA LOBO Admitting Unavailabl e FALLS, SARA LOBO Referring Unavailabl e FOSTER, BRADFORD Referring Unavailable JOLLIFF, JOANNE S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 Unavailable FOSTER, BRADFORD Attending Unavailable SELF, SELF Referring Unavailable GHANSHYAM LIU Attending Unavailable JOLLIFF, JOANNE S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 Unavailable FOSTER, BRADFORD Attending Unavailable FOSTER, BRADFORD Referring Unavailable JOLLIFF, JOANNE S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 Unavailable JOLLIFF, JOANNE S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 Unavailable SELF, SELF Referring Unavailable FOSTER, BRADFORD Attending Unavailable Clayton GOMEZ, Dr. Joanne Hoover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 Provider Dr. Sara Granados DO Attending Provider Falls DO, Dr. Escudero Referring Provider [phone] Daniela Latham Attending Provider [phone] Daniela Latham Referring Provider [phone] Joanne Arnold MD S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 Provider [phone] Falls DO, Dr. Escudero Attending Provider Falls DO, Dr. Escudero Referring Provider [phone] Temi BIOLOGICAL AIDE-C, Cory Attending Provider [phone] Temi BIOLOGICAL AIDE-C, Cory Referring Provider [phone] JOLLIFF, JOANNE DELIA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 Unavailable FALLS, [...] Unavailable FALLS, SARA LOBO Attending Unavailabl e Temi, Cory Referring Unavailable Temi, Cory Attending Unavailable Temi, Cory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 Unavailable Falls, Sara Referring Unavailable Jolliff, Joanne S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 Unavailable Falls, Sara Attending Unavailable Jolliff, Joanne S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 Unavailable Falls, Sara Attending Unavailable Falls, Sara Referring Unavailable Jolliff, Joanne S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 Unavailable Falls, Sara Attending Unavailable Falls, Sara Referring Unavailable Aftab Abrams Attending Unavailable SpittleJorge Referring Unavailable Jolliff, Joanne S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 Unavailable Spitttre, Jorge Referring Unavailable SpittJorge toledo Attending Unavailable Jolliff, Joanne S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 Unavailable Mable Santos Referring Unavailable Ger Santosen Attending Unavailable Jolliff, Joanne S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 Unavailable Falls, Sara Referring Unavailable Falls, Sara Attending Unavailable Jolliff, Joanne S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 Unavailable Falls, Sara Referring Unavailable Falls, Sara Attending Unavailable Jolliff, Joanne S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 Unavailable Breanna, Daniela Referring Unavailable Breanna, Daniela Attending Unavailable Jolliff, Joanne S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 Unavailable Spittle, Jorge Referring Unavailable Spittle, Jorge Attending Unavailable Jolliff, Joanne S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 Unavailable Falls, Sara Referring Unavailable Falls, Sara Attending Unavailable Jolliff, Joanne S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 Unavailable Temi, Cory Referring Unavailable Temi, Cory Attending Unavailable Jolliff, Joanne S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 Unavailable Falls, Sara Referring Unavailable Jolliff, Joanne S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 Unavailable Falls, Sara Attending Unavailable 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, [place]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 Unavailable PARAM CASTELLANO-CARE GIVER, CORY L Consulting Katherin SANTOS MD, DR MABLE Granados Admitting Unavailab tre SANTOS MD, DR MABLE Granados Attending Unavailab tre SANTOS MD, DR MABLE Granados Attending Unavailab le 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, [place]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 Unavailable Allergies Allergy Classification Reported Allergen(s) Allergy Type Date of Onset Reaction(s) Facility (20 sources) atropine / diphenoxylate; Translations: [DIPHENOXYLATE- ATROPINE] Propensity to adverse reactions to drug 6 GI Intolerance, Diarrhea [facility] Work Phone: (20 sources) diclofenac; Translations: [DICLOFENAC] Propensity to adverse reactions to drug 6 GI Intolerance, Diarrhea [facility] Work Phone: (19 sources) Etodolac Drug Allergy 4 Diarrhea [facility] Work Phone: (5 sources) Etodolac Propensity to adverse reactions to drug 4 [facility] (1 source) Diclofenac Drug Allergy 4 [facility] (1 source) Etodolac Drug Allergy 4 [facility] Medications Current Medications Medication Drug Class(es) Dates Sig (Normalized) Sig (Original) acetaminophen 500 mg oral tablet (15 sources) Start: 03-17-2024 take 2 tablets by mouth at bedtime Acetaminophen (Acetaminophen Extra Strength) 500 mg tablet Active 1000 mg PO AT BEDTIME March 17, 2024 12:00am Start: 06-18-2022 take 2 tablets by mo [facility] every six hours as needed Acetaminophen 325 MG tablet Take 2 tablets by mouth every 6 hours as needed for Mild Pain. 50 tablet 06/18/2022 Active Start: 06-18-2022 End: 06-19-2022 take 1 tablet by mouth every four hours as needed Acetaminophen (TYLENOL) tablet 650 mg Start: 06-18-2022 End: 06-18-2022 acetaminophen (TYLENOL) tabl et 1,000 mg acetaminophen 300 mg / codeine phosphate 30 mg oral tablet (20 sources) Opioid Agonist Start: 04-26-2019 take 1 tablet by mouth once daily as needed for pain acetaminophen-codeine (TYLENOL #3) 300-30 mg per tablet Indications: Seropositive rheumatoid arthritis (HCC) Take 1 (one) tablet by mouth daily As needed for pain up to 30 days. . 30 tablet 0 04/26/2019 Active Start: 02-16-2018 take 1 tablet by [facility] once daily as needed for pain acetaminophen-codeine (TYLENOL #3) 300-3 0 mg per tablet Indications: Seropositive rheumatoid arthritis (HCC) Take 1 (one) tablet by mouth daily As needed for pain up to 30 days.. 30 tablet 0 02/16/2018 Active Start: 09-23-2017 End: 11-25-2017 take 1 tablet by mouth once daily as needed for pain acetaminophen-codeine (TYLENOL #3) 300-3 0 mg per tablet Indications: Seropositive rheumatoid arthritis (HCC) Take 1 (one) tablet by mouth daily As needed for pain up to 40 days.. 40 tablet 0 09/23/2017 11/25/2017 Discontinued Start: 11-05-2016 End: 09-01-2017 take 1 tablet by mouth once daily as needed for pain acetaminophen-codeine (TYLENOL #3) 300-3 0 mg per tablet Indications: Seropositive rheumatoid arthritis (HCC) Take 1 (one) tablet by mouth daily As needed for pain up to 40 days.. 40 tablet 0 09/01/2017 Active acetaminophen 325 mg / HYDROcodone bitartrate 5 mg oral tablet (7 sources) Opioid Agonist Start: 06-18-2022 End: 06-25-2022 take 1 tablet by mouth once daily as needed hydroCODone-acetaminophen 5-325 MG tablet Indications: Acute postoperative pain of right hip Take 1-2 tablets by mouth every 6 hours as needed for up to 7 days. Do not take over 4000mg acetaminophen daily. 30 tablet 06/18/2022 Active AJOVY 225 mg/1.5 mL Syrg (3 sources) Start: 02-26-2019 AJOVY 225 mg/1.5 mL Syrg Inject under the skin every 30 (thirty) days . 6 02/26/2019 Active alendronic acid 70 mg oral tablet (20 sources) Bisphosphonate Start: 11-27-2021 End: 11-11-2023 alendronate 70 MG tablet Take 1 tablet by mouth every 7 days. alendronate 70 mg tablet TAKE 1 TABLET BY MOUTH EVERY 7 DAYS WITH A FULL GLASS OF WATER ON AN EMPTY STOMACH. REMAIN UPRIGHT AND DO NOT EAT FOR NEXT 30 MINUTES 11/27/2021 Active amitriptyline hydrochloride 100 mg oral tablet (20 sources) Tricyclic Antidepressant Start: 01-03-2023 Amitriptyline 100 mg tablet Active 75 mg PO AT BEDTIME January 03, 2023 11:08am Start: 01-03-2023 take 75 mg by mouth at bedtime Amitriptyline Active 75 MG PO AT BEDTIME January 03, 2023 10:08am Start: 06-19-2022 End: 06-19-2022 take 50 mg by mouth once daily at bedtime 50 mg, Oral, DAILY AT BEDTIME, First dose on Fri06/19/22 at 2100, Until Discontinued Start: 06-04-2021 End: 01-03-2023 take 1 tablet by mouth at bedtime Amitriptyline 100 mg tablet Discontinued 100 mg PO AT BEDTIME June 04, 2021 1:00am January 03, 2023 11:11am Start: 03-31-2017 take 1 tablet by afshin th once daily amitriptyline (ELAVIL) 50 MG tablet Take 1 (one) tablet (50 mg total) by mouth daily . 03/31/2017 Active take 1 tablet by afshin th once daily amitriptyline (ELAVIL) 75 MG tablet Take 1 (one) tablet (75 mg total) by mouth daily . Active take 1 tablet by afshin th once daily at bedtime amitriptyline (ELAVIL) 25 MG tablet TAKE 1 TABLET BY MOUTH ONCE DAILY AT BEDTIME IN ADDITION TO 50MG TABLET FOR A TOTAL OF 75MG DAILY Active amoxicillin 500 mg oral capsule (5 sources) Penicillin-class Antibacterial Start: 09-23-2022 End: 09-24-2023 Amoxicillin 500 MG capsule Take 4 capsules 1 hour before procedure 8 capsule 1 09/23/2022 09/24/2023 Active apixaban 2.5 mg oral tablet (8 sources) Factor Xa Inhibitor Start: 06-18-2022 End: 07-23-2022 take 1 tablet by mouth every twelve hours apixaban 2.5 MG tablet Take 1 tablet by mouth every 12 hours. This medication is for blood clot prevention 70 tablet 06/18/2022 Active onabotulinumtoxina 100 unt injection (20 sources) Acetylcholine Release Inhibitor Start: 07-30-2017 BOTOX 100 unit SolR Inject under the skin as needed. 0 07/30/2017 Active calcium carbonate 1250 mg chewable tablet (20 sources) Start: 08-02-2015 take 4 tablets by mouth at bedtime Calcium Carbonate 500 MG tablet,chewable Active 2000 mg PO AT BEDTIME August 02, 2015 1:00am Start: 08-02-2015 take 750 mg by mouth three times daily Calcium Carbonate Active 750 MG PO THREE TIMES A DAY August 02, 2015 12:00am take 1 capsule by mo [facility] twice daily at mealtime calcium carbonate 1250 MG capsule Take 1 (one) capsule (1,250 mg total) by mouth 2 (two) times a day with meals . Active take 1 tablet by afshin twice daily at mealtime calcium carbonate 1250 (500 Ca) MG tablet Take 1 tablet by mouth 2 times daily with meals. Active DASQTWQ-RTBPAQGRD-EBWJ PO (10 sources) CALCIUM-MAGNESIU M-ZINC PO Take by mouth daily. Active CALCIUM-MAGNESIU M-ZINC PO Take by mouth daily. 0 Active Calcium-Vitamin D3-Magnesium 200 mg calcium- 1.25 mcg capsule (2 sources) Start: 03-17-2024 Calcium-Vitamin D3-Magnesium 200 mg calcium- 1.25 mcg capsule Active 3 NMA PO DAILY March 17, 2024 12:00am celecoxib 200 mg oral capsule (20 sources) Nonsteroidal Anti-inflammatory Drug Start: 12-03-2023 take 1 capsule by mouth twice daily Celecoxib 200 MG capsule Take 1 capsule by mouth 2 times daily. 60 capsule 12/03/2023 Active Start: 06-18-2022 End: 06-18-2022 take 1 capsule by mouth once daily Celecoxib 200 MG capsule Take 1 capsule by mouth daily. 42 capsule 06/18/2022 Active Start: 02-07-2022 End: 06-18-2022 take 1 capsule by mouth twice daily as needed for pain celecoxib 200 MG capsule Indications: Cervical spondylosis without myelopathy , Primary osteoarthritis of right hip , Migraine without status migrainosus, not intractable, unspecified migraine type Take 1 capsule by mouth 2 times daily as needed for Mild Pain. 60 capsule 1 02/07/2022 06/18/2022 Discontinued (Stop Taking at Discharge) cephalexin 500 mg oral capsule (2 sources) Cephalosporin Antibacterial Start: 07-10-2022 End: 07-17-2022 take 1 capsule by mouth every eight hours cephALEXin 500 MG capsule Take 1 capsule by mouth every 8 hours for 7 days. 21 capsule 0 07/10/2022 07/17/2022 Active 1 ml dexamethasone phosphate 4 mg/ml injection (3 sources) Corticosteroid Start: 12-03-2023 dexAMETHasone 4 MG/ML Solution injection 1 mL by Other route As directed for 18 doses. (1 cc 3 x a week at physical therapy via iontophoresis) for up to 18 doses. 30 mL 12/03/2023 Active Start: 06-19-2022 End: 06-19-2022 take 10 mg intravenously every twenty-four hours dexAMETHasone (DECADRON) injection 10 mg 12 hr dextromethorphan hydrobromide 60 mg / guaiFENesin 1200 mg extended release oral tablet (16 sources) Uncompetitive H-drzdpb-E-aspartate Receptor Antagonist, Sigma-1 Agonist take 1 tablet by mouth every twelve hours as needed Dextromethorphan-Guaifenesin 60-1200 MG Tab SR 12 HR tablet Take 1 Dose by mouth every 12 hours as needed. Active diphenhydrAMINE hydrochloride 25 mg oral capsule (20 sources) Histamine-1 Receptor Antagonist take 1 capsule by mouth every six hours as needed diphenhydrAMINE (BENADRYL) 25 mg capsule Take 25 mg by mouth every 6 (six) hours as needed for itching. 0 Active take 1 tablet by afshin th every six hours as needed diphenhydramine 25 MG tablet Take 25 mg by mouth Every 6 hours as needed. 0 Active docosahexaenoic acid 120 mg / eicosapentaenoic acid 180 mg oral capsule (10 sources) [place]-3 Fatty Acids (Fish Oil) 1000 MG capsule Take by mouth daily. Active docusate sodium 100 mg oral capsule (12 sources) Start: 06-18-20 End: 06-19-20 take 1 capsule by mouth twice daily Docusate 100 MG capsule Take 1 capsule by mouth 2 times daily. 60 capsule 06/18/2022 Active DULoxetine 30 mg delayed release oral capsule (6 sources) Serotonin and Norepinephrine Reuptake Inhibitor take 1 capsule by mouth once daily DULoxetine [address] Particles capsule DR Take 30 mg by mouth daily. 0 Active End: 05-01-2017 take 1 capsule by mouth once daily DULoxetine (CYMBALTA) 60 MG capsule Take 60 mg by mouth daily. 05/01/2017 Discontinued Enbrel 50 Mg/Ml (0.98 Ml) Subcutaneous Syringe (2 sources) Start: 10-16-2016 ENBREL 50 mg/m L (0.98 mL) single use prefilled syringe Indications: Rheumatoid arthritis, involving unspecified site, unspecified rheumatoid factor presence (HCC) INJECT 1 ML (50 MG TOTAL) UNDER THE SKIN ONCE A WEEK 11.76 mL 0 10/16/2016 Active 1 ml eptinezumab-jjmr 100 mg/ml injection (5 sources) Start: 01-03-2023 take 100 mg intravenously every three months Eptinezumab-Jjmr (Vyepti) 100 mg/mL solution Active 100 mg IV every 3 months January 03, 2023 12:00am 100 mg intravenously every 3 months; eptinezumab-jjmr (VYEPTI IV) (18 sources) eptinezumab-jjmr (VYEPTI IV) Active eptinezumab-jjmr (VYEPTI IV) estradiol 0.01 mg vaginal insert (20 sources) Estrogen Start: 04-14-2017 estradiol (VAG IFEM) 10 mcg Tab End: 05-01-2017 estradiol (ESTRACE) 0.01 % ( 0.1 mg/gram) vaginal cream Insert 2 g into the vagina twice weekly. 05/01/2017 Discontinued 1 ml etanercept 50 mg/ml prefilled syringe (20 sources) Tumor Necrosis Factor Jn Start: 08-12-2022 End: 07-16-2025 inject 1 mL by subcutaneous injection every week EnbreL 50 mg/mL (1 mL) single use prefilled syringe Indications: Rheumatoid arthritis (HCC) Inject 1 mL (50 mg total) under the skin once a week . 12 mL 3 07/16/2024 07/16/2025 Active Start: 11-16-2019 End: 08-09-2022 EnbreL 50 mg/mL (1 mL) singl e use prefilled syringe Indications: Rheumatoid arthritis, involving unspecified site, unspecified rheumatoid factor presence Inject 50 mg subcutaneously every 7 days. . 11.76 mL 0 11/16/2019 08/09/2022 Discontinued (Reorder (Suppress CancelRx Message to Pharmacy)) Start: 07-26-2019 Enbrel 50 mg/m L (1 mL) single use prefilled syringe Indications: Rheumatoid arthritis, involving unspecified site, unspecified rheumatoid factor presence (HCC) Inject 50 mg subcutaneously every 7 days. . 11.76 mL 1 07/28/2019 Active Start: 02-16-2018 ENBREL 50 mg/m L (0.98 mL) single use prefilled syringe Indications: Rheumatoid arthritis, involving unspecified site, unspecified rheumatoid factor presence (HCC) Inject 50 mg subcutaneously every 7 days.. 11.76 mL 1 02/16/2018 Active Start: 08-13-2017 ENBREL 50 mg/m L (0.98 mL) single use prefilled syringe Indications: Rheumatoid arthritis, involving unspecified site, unspecified rheumatoid factor presence (HCC) INJECT 1 ML (50 MG TOTAL) UNDER THE SKIN ONCE A WEEK 11.76 mL 1 08/13/2017 Active Start: 08-02-2015 Etanercept (En brel) 50 MG/ML syringe Active 50 mg SQ FR August 02, 2015 1:00am inject 1 mL by subcu taneous injection every week Etanercept (Enbrel) 50 MG/ML Solution Prefilled Syringe injection Inject 1 mL under the skin once a week. Active folic acid 1 mg oral tablet (20 sources) Start: 08-02-2015 End: 07-19-2025 take 1 tablet by mouth once daily folic acid (FOLVITE) 1 MG tablet Indications: Rheumatoid arthritis involving multiple sites with positive rheumatoid factor (HCC) Take 1 (one) tablet (1 mg total) by mouth daily Except methotrexate day . 90 tablet 3 07/19/2024 07/19/2025 Active 1.5 ml fremanezumab-vfrm 150 mg/ml prefilled syringe (20 sources) Start: 02-26-2019 AJOVY 225 mg/1 .5 mL Syrg Inject under the skin every 30 (thirty) days . 6 02/26/2019 Active GLUC HCL/CSANA/GLY-AM-GLY,M X/C (KOPQHEGO-XSWJMSTJQP-S A GLYCN-C ORAL) (20 sources) GLUC HCL/CSANA/GLY-AM-GLY,MX/ C (YZFPIBHI-MEZEVGXMTH-QR GLYCN-C ORAL) Take by mouth. 0 Active GLUC HCL/CSANA/G LY-AM-GLY,MX/C (CEBTCIRF-FRLPGVUCVI-AD GLYCN-C ORAL) Take by mouth. Active Twfujexn-Bnfrl-Rjh1-C-Eleazar-B or (Eyqkdhqckts-Ujeia-Fyl Complex) 900-540-63-0.5 mg tablet (2 sources) Start: 03-17-2024 Qushkfoi-Ofofh-Xic5-C-Eleazar-B or (Enhizdmzrfb-Jzjvb-Ejv Complex) 408-169-49-0.5 mg tablet Active 2 {tbl} PO DAILY March 17, 2024 12:00am hydroxychloroquine sulfate 2 00 mg oral tablet (20 sources) Antima larial , Antirh eumati c Agent Start: 03-17-2024 take 1 tablet by mouth twice daily Hydroxychloroquine 200 mg tablet Active 200 mg PO TWICE A DAY March 17, 2024 12:00am Start: 01-03-2023 End: 03-17-2024 take 1 tablet by mouth once daily Hydroxychloroquine 100 mg tablet Discontinued 100 mg PO DAILY January 03, 2023 12:00am March 17, 2024 9:12am Start: 01-03-2023 take 100 mg by mouth once daily Hydroxychloroquine Active 100 MG PO DAILY January 02, 2023 11:00pm Start: 01-03-2023 take 100 mg by mouth once daily Hydroxychloroquine Active 100 MG PO DAILY January 03, 2023 12:00am Start: 11-15-2021 End: 07-19-2025 take 2 tablets by mouth once daily hydroxychloroquine (PLAQUENIL) 200 mg tablet Indications: Rheumatoid arthritis involving multiple sites with positive rheumatoid factor (HCC) Take 2 (two) tablets (400 mg total) by mouth daily . 180 tablet 3 07/19/2024 07/19/2025 Active Start: 11-15-2021 take 1 tablet by afshin th once daily hydroxychloroquine 200 MG tablet Take 200 mg by mouth daily. 0 11/15/2021 Active ibuprofen 200 mg oral tablet (20 sources) Nonsteroidal Anti-inflammatory Drug End: 02-07-2022 take 1 tablet by mouth every six hours as needed for pain ibuprofen (ADVIL,MOTRIN) 200 MG tablet Take 200 mg by mouth every 6 (six) hours as needed for pain. 0 Active End: 02-07-2022 take 1 tablet by mouth every six hours as needed ibuprofen 800 MG tablet Take 800 mg by mouth Every 6 hours as needed. 0 02/07/2022 Discontinued (Dose adjustment (suppress cancel msg)) magnesium amino acid chelate 133 mg oral tablet (20 sources) magnesium oxide- Mg AA chelate 133 mg Tab Take by mouth. Active Magnesium Oxide (5 sources) take 1 tablet by mouth twice daily at mealtime Magnesium Oxide (MAG-200 PO) Take 1 tablet by mouth 2 times daily with meals. 0 Active metoclopramide 10 mg oral tablet (6 sources) Dopamine-2 Receptor Antagonist metoclopramide 10 MG tablet Take 1 Dose by mouth as needed. 0 Active End: 05-01-2017 metoclopramide (REGLAN) 5 MG tablet Take 5 mg by mouth as needed. 05/01/2017 Discontinued Misc Natural Products (GLUCO SAMINE CHONDROITIN ADV PO) (12 sources) Misc Natural Pro ducts (GLUCOSAMINE CHONDROITIN ADV PO) Take by mouth daily. Active Misc Natural Pro ducts (GLUCOSAMINE CHONDROITIN ADV PO) Take by mouth daily. 0 Active Multiple Vitamin (Multi-Vitamin) tablet (16 sources) take 1 tablet by mouth once daily Multiple Vitamin (Multi-Vitamin) tablet Take 1 tablet by mouth daily. Active take 1 tablet by mouth once vanessa y Multiple Vitamin (Multi-Vitamin) tablet Take 1 tablet by mouth daily. 0 Active multivitamin (THERAGRAN) per tablet (20 sources) take 1 tablet by afshin th once daily multivitamin (THERAGRAN) per tablet Take 1 (one) tablet by mouth daily . Active take 1 tablet by mouth once vanessa y multivitamin (THERAGRAN) per tablet Take 1 (one) tablet by mouth daily . 0 Active take 1 tablet by mouth once vanessa y multivitamin (THERAGRAN) per tablet Take 1 tablet by mouth daily. 0 Active take 1 tablet by mouth once vanessa y multivitamin (THERAGRAN) per tablet Take 1 tablet by mouth daily. Active Multivitamin preparation (4 sources) Start: 10-08-2021 take 1 tablet by mouth once daily Multivitamin Active 1 TABLET PO DAILY October 08, 2021 12:00am Start: 10-08-2021 take 1 tablet by afshin th once daily Multivitamin Active 1 TABLET PO DAILY October 07, 2021 11:00pm Multivitamin Tablet (3 sources) take 1 tablet by mouth once daily multivitamin (THERAGRAN) per tablet Take 1 tablet by mouth daily. Active Multivitamin tablet (2 sources) Start: 10-09-19 Multivitamin tablet Active 1 {tbl} PO DAILY October 08, 2021 12:00am naproxen 250 mg oral tablet (20 sources) Nonsteroidal Anti-inflammatory Drug End: 02-08-20 take 1 tablet by mouth twice daily as needed naproxen (NAPROSYN) 250 MG tablet Take 250 mg by mouth 2 (two) times a day as needed. 0 Active nitrofurantoin, macrocrystals 25 mg / nitrofurantoin, monohydrate 75 mg oral capsule (5 sources) Nitrofuran Antibacterial take 1 capsule by mouth twice daily nitrofurantoin, macrocrystal-monohyd rate, 100 MG capsule Take 1 capsule by mouth 2 times daily. 0 Active [place]-3 Fatty Acids (4 sources) Start: 10-09-19 take 1000 mg by mouth once daily [place]-3 Fatty Acids Active 1000 MG PO DAILY October 08, 2021 12:00am Start: 10-08-2021 take 1000 mg by mouth once lex ly [place]-3 Fatty Acids Active 1000 MG PO DAILY October 07, 2021 11:00pm [place]-3 Fatty Acids 1,000 mg capsule (2 sources) Start: 10-08-2021 take 1 capsule by mouth once daily [place]-3 Fatty Acids 1,000 mg capsule Active 2000 mg PO DAILY October 08, 2021 12:00am omeprazole 20 mg delayed release oral capsule (11 sources) Proton Pump Inhibitor Start: 06-18-2022 take 1 capsule by mouth once daily omeprazole [address] capsule Take 1 capsule by mouth daily. 30 capsule 06/18/2022 Active onabotulinumtoxina 100 unt injection (3 sources) Start: 07-30-2017 BOTOX 100 unit SolR Inject under the skin as needed. 07/30/2017 Active polyethylene glycol 3350 07525 mg powder for oral solution (2 sources) Osmotic Laxative Start: 03-17-2024 Polyethylene Glycol 3350 (Miralax) 17 gram/dose powder Active 17 g PO DAILY March 17, 2024 12:00am Polyethylene Glycols (20 sources) polyethylene glycol 3350 (MIRALAX ORAL) Take by mouth . Active Polyethylene Gly col 3350 (MIRALAX PO) Take by mouth daily. Active Polyethylene Gly col 3350 (MIRALAX PO) Take by mouth daily. 0 Active propranolol hydrochloride 20 mg oral tablet (20 sources) beta-Adrenergic Jn Start: 01-22-2022 End: 03-17-2024 take 1 tablet by mouth once daily in the morning, then take 1 tablet by mouth once daily in the evening propranoloL (INDERAL) 20 MG tablet TAKE 1 TABLET BY MOUTH ONCE DAILY IN THE MORNING AND 1 ONCE DAILY IN THE EVENING 01/22/2022 Active Start: 01-22-2022 take 3 tablets by mo uth once daily, then take 1 tablet by mouth in the morning, then take 2 tablets by mouth in the evening propranolol 20 MG tablet Take 3 tablets by mouth daily. TAKE 1 TABLET BY MOUTH IN THE MORNING AND 2 TABLETS IN THE EVENING 01/22/2022 Active Start: 06-04-2021 End: 08-09-2021 take 1 tablet by mouth at breakfast Propranolol 20 mg tablet Discontinued 20 mg PO WITH BREAKFAST June 04, 2021 1:00am August 09, 2021 12:47pm Start: 06-04-2021 End: 06-19-2022 take 1 tablet by mouth twice daily Propranolol 20 mg tablet Active 20 mg PO TWICE A DAY August 09, 2021 12:45pm Start: 06-04-2021 End: 01-03-2023 take 2 tablets by mouth at breakfast Propranolol 20 mg tablet Discontinued 40 mg PO WITH BREAKFAST August 09, 2021 12:45pm January 03, 2023 11:11am Start: 06-04-2021 End: 01-03-2023 take 40 mg by mouth at breakfast Propranolol Discontin ued 40 MG PO WITH BREAKFAST August 09, 2021 11:45am January 03, 2023 10:11am Qulipta 60 MG tablet (5 sources) Start: 01-10-2022 take 1 tablet by mouth once daily Qulipta 60 MG tablet Take 1 tablet by mouth daily. 0 01/10/2022 Active sertraline 100 mg oral tablet (6 sources) Serotonin Reuptake Inhibitor take 1 tablet by mouth once daily sertraline 100 MG tablet Take 100 mg by mouth daily. 0 Active End: 05-01-2017 take 1 tablet by mouth once daily sertraline (ZOLOFT) 50 MG tablet Take 50 mg by mouth daily. 05/01/2017 Discontinued tiZANidine 2 mg oral capsule (5 sources) Central alpha-2 Adrenergic Agonist take 1 capsule by mouth twice daily tizanidine 2 MG capsule Take 2 mg by mouth 2 times daily. 0 Active Turmeric extract (2 sources) Start: 03-17-2024 take 1 capsule by mouth once daily Turmeric 400 mg capsule Active 400 mg PO DAILY March 17, 2024 12:00am vit A/vit C/vit E/zinc/copper (PRESERVISION AREDS ORAL) (8 sources) vit A/vit C/vit E/zinc/copper (PRESERVISION AREDS ORAL) Take by mouth . Active Vitamin A-Vitamin C-Vit E-Min (Ocutabs) tablet (2 sources) Start: 03-17-2024 Vitamin A-Vitamin C-Vit E-Min (Ocutabs) tablet Active 2 {tbl} PO AT BEDTIME March 17, 2024 12:00am Completed/Discontinued Medications Medication Drug Class(es) Dates Sig (Normalized) Sig (Original) Atogepant (6 sources) Start: 10-08-2021 End: 01-03-2023 take 1 tablet by mouth once daily Atogepant 60 mg tablet Discontinued 60 mg PO DAILY October 08, 2021 12:00am January 03, 2023 11:11am Start: 10-08-2021 End: 01-03-2023 take 60 mg by mouth once daily Atogepant Discontinued 60 MG PO DAILY October 07, 2021 11:00pm January 03, 2023 10:11am Start: 10-08-2021 End: 01-03-2023 take 60 mg by mouth once daily Atogepant Discontinued 60 MG PO DAILY October 08, 2021 12:00am January 03, 2023 11:11am Start: 10-08-2021 take 60 mg by mouth once daily Atogepant Active 60 MG PO DAILY October 07, 2021 11:00pm bisacodyl 10 mg rectal suppository (1 source) Stimulant Laxative Start: 06-18-2022 End: 06-19-2022 bisacodyl (DULCOLAX) suppository 10 mg bupivacaine (PF) (MARCAINE) 0.25 % 3 mL syringe (2 sources) Start: 03-01-2022 End: 03-08-2022 bupivacaine (PF) (MARCAINE) 0.25 % 3 mL syringe ceFAZolin 2000 mg injection (1 source) Cephalosporin Antibacterial Start: 06-18-2022 End: 06-19-2022 take 2 g intravenously every eight hours ceFAZolin (ANCEF) 2 g in dextrose 100 mL premix IVPB docusate sodium 50 mg / sennosides, [facility] 8.6 mg oral tablet (1 source) Start: 06-18-2022 End: 06-19-2022 senna-docusate (SENOKOT-S) 8.6-50 MG per tablet 2 tablet 1 ml HYDROmorphone hydrochloride 1 mg/ml cartridge (1 source) Opioid Agonist Start: 06-18-2022 End: 06-19-2022 take 0.5 mg intravenously every four hours as needed HYDROmorphone (DILAUDID) injection 0.5 mg lidocaine 1% (PF) (XYLOCAINE MPF) 10 mL syringe (2 sources) Start: 03-01-2022 End: 03-08-2022 lidocaine 1% (PF) (XYLOCAINE MPF) 10 mL syringe losartan potassium 25 mg oral tablet (20 sources) Angiotensin 2 Receptor Jn Start: 06-19-2022 End: 06-19-2022 take 12.5 mg by mouth once daily 12.5 mg, Oral, DAILY, First dose on Fri06/19/22 at 0900, Until Discontinued Start: 06-05-2021 End: 04-18-2022 take 1 tablet by mouth once daily Losartan 25 mg tablet Discontinued 25 mg PO DAILY August 10, 2021 5:13pm April 18, 2022 2:48pm Losartan 25 MG t ablet Take 12.5 mg by mouth daily. Active methotrexate 2.5 mg oral tablet (20 sources) Folate Analog Metabolic Inhibitor Start: 08-09-2021 End: 01-25-2025 take 4 tablets by mouth every week methoTREXate (TREXALL) 2.5 MG tablet Indications: Rheumatoid arthritis involving multiple sites with positive rheumatoid factor (HCC) Take 4 (four) tablets (10 mg total) by mouth once a week . 48 tablet 10/27/2024 10/27/2024 Discontinued (Reorder (Suppress CancelRx Message to Pharmacy)) Start: 08-09-2021 take 12.5 mg by mouth once Met hotrexate Sodium Active 12.5 MG PO MO August 09, 2021 11:44am Start: 08-18-2019 End: 07-01-2023 methotrexate 2.5 MG tablet T pati 4 tablets by mouth every 7 days. 12/17/2021 Active Start: 02-26-2019 methotrexate ( TREXALL) 2.5 MG tablet Indications: Rheumatoid arthritis, involving unspecified site, unspecified rheumatoid factor presence (HCC) TAKE 4 TABLETS (10 MG TOTAL) ONCE A WEEK 48 tablet 4 02/26/2019 Active Start: 12-30-2017 methotrexate 2 .5 MG tablet Indications: Rheumatoid arthritis, involving unspecified site, unspecified rheumatoid factor presence (HCC) TAKE 4 TABLETS (10 MG TOTAL) ONCE A WEEK 48 tablet 0 12/30/2017 Active Start: 09-22-2017 methotrexate 2 .5 MG tablet Indications: Rheumatoid arthritis, involving unspecified site, unspecified rheumatoid factor presence (HCC) TAKE 4 TABLETS (10 MG TOTAL) ONCE A WEEK 48 tablet 0 09/22/2017 Active Start: 07-15-2017 methotrexate 2 .5 MG tablet Indications: Rheumatoid arthritis, involving unspecified site, unspecified rheumatoid factor presence (HCC) TAKE 4 TABLETS (10 MG TOTAL) ONCE A WEEK 48 tablet 0 07/15/2017 Active Start: 04-14-2017 methotrexate 2 .5 MG tablet Indications: Rheumatoid arthritis, involving unspecified site, unspecified rheumatoid factor presence (HCC) TAKE 4 TABLETS (10 MG TOTAL) ONCE A WEEK 48 tablet 0 04/14/2017 Active Start: 08-02-2015 End: 08-09-2021 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 Sodium 2.5 MG t ablet Discontinued 20 mg PO MO August 02, 2015 1:00am August 09, 2021 12:47pm Start: 08-02-2015 End: 08-09-2021 take 20 mg by mouth once 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 Sodium Disconti nued 20 MG PO MO August 02, 2015 12:00am August 09, 2021 11:47am midodrine hydrochloride 5 mg oral tablet (2 sources) alpha-Adrenergic Agonist Start: 06-18-2022 End: 06-18-2022 midodrine (ProAmatine) tablet 10 mg Start: 06-18-2022 End: 06-18-2022 midodrine (ProAmatine) table t 5 mg 2 ml ondansetron 2 mg/ml injection (1 source) Serotonin-3 Receptor Antagonist Start: 06-18-2022 End: 06-19-2022 take 4 mg intravenously every four hours as needed Ondansetron 4mg/2ml (ZOFRAN) injection 4 mg pantoprazole 40 mg delayed release oral tablet (1 source) Proton Pump Inhibitor Start: 06-19-2022 End: 06-19-2022 take 40 mg by mouth once daily 40 mg, Oral, DAILY, First dose on Fri06/19/22 at 0900, Until Discontinued Swallow whole; do not crush or chew. Indications: Inpt Stress Ulcer Prophylaxis pregabalin 25 mg oral capsule (4 sources) Start: 03-21-2022 End: 06-19-2022 take 25 mg by mouth twice daily 25 mg, Oral, 2 TIMES DAILY, First dose on Fri06/19/22 at 0900, Until Discontinued rivaroxaban 20 mg oral tablet (19 sources) Factor Xa Inhibitor Start: 08-09-2021 End: 04-18-2022 take 1 tablet by mouth once daily in the evening Rivaroxaban 20 mg tablet Discontinued 20 mg PO EVERY EVENING November 07, 2021 1:05pm April 18, 2022 2:46pm Ropivacaine (NAROPIN) 1 % 400 mg, EPINEPHrine PF (ADRENALIN) 1 MG/ML 1 mg, Ketorolac (TORADOL) 30 MG/ML 30 mg, cloNIDine 100 MCG/ML 123 mcg, Sodium chloride 0.9% 45 mL 88.23 mL (total volume) (1 source) Start: 06-18-2022 End: 06-18-2022 Ropivacaine (NAROPIN) 1 % 400 mg, EPINEPHrine PF (ADRENALIN) 1 MG/ML 1 mg, Ketorolac (TORADOL) 30 MG/ML 30 mg, cloNIDine 100 MCG/ML 123 mcg, Sodium chloride 0.9% 45 mL 88.23 mL (total volume) 1000 ml sodium chloride 9 mg/ml injection (2 sources) Start: 06-18-2022 End: 06-19-2022 Sodium chloride 0.9% IV solution sodium phosphate, dibasic 35.5 mg/ml / sodium phosphate, monobasic 96.4 mg/ml enema (1 source) Start: 06-18-2022 End: 06-19-2022 sodium phosphate w/sodium biphosphate (FLEETS) enema 1 enema tranexamic acid 650 mg oral tablet (1 source) Antifibrinolytic Agent Start: 06-18-2022 End: 06-18-2022 tranexamic acid (LYSTEDA) tablet 1,950 mg 1 ml triamcinolone acetonide 40 mg/ml injection (3 sources) Corticosteroid Start: 09-05-2023 End: 09-05-2023 triamcinolone acetonide (KENALOG-40) injection 40 mg Start: 03-01-2022 End: 03-08-2022 triamcinolone (KENALOG-40) i njection 40 mg divalproex sodium 500 mg delayed release oral tablet (20 sources) Mood Stabilizer, Anti-epileptic Agent Start: 06-04-2021 End: 06-18-2022 take 1 tablet by mouth at bedtime Divalproex 500 mg tablet,delayed release (DR/EC) Discontinued 500 mg PO AT BEDTIME June 04, 2021 1:00am August 09, 2021 12:42pm Start: 06-04-2021 End: 08-09-2021 Divalproex 500 mg tablet,del ayed release (DR/EC) Discontinued 250 mg PO WITH BREAKFAST June 04, 2021 1:00am August 09, 2021 12:42pm Start: 06-04-2021 End: 08-09-2021 take 250 mg by mouth at breakfast Divalproex Discontinued 250 MG PO WITH BREAKFAST June 04, 2021 12:00am August 09, 2021 11:42am 100 ml zoledronic acid 0.05 mg/ml injection (2 sources) Bisphosphonate Start: 07-02-2023 End: 07-02-2023 zoledronic acid (RECLAST) 5 mg in 100mL IVPB zolpidem tartrate 5 mg oral tablet (1 source) gamma-Aminobutyric Acid-ergic Agonist Start: 06-18-2022 End: 06-19-2022 Zolpidem (AMBIEN) tablet 5 mg Problems Active Problems Problem Classification Problem Date Documented Da te Episodic/Chronic Conditions associated with dizziness or vertigo (1 source) Dizziness and giddiness; Translations: [Dizziness and giddiness] Onset: 10-12-2024 Episodic Disorders of lipid metabolism (1 source) Hyperlipidemia, unspecified; Translations: [Hyperlipidemia, unspecified] Onset: 10-08-2024 Chronic Headache; including migraine (3 sources) Refractory migraine without aura; Translations: [Chronic migraine without aura, intractable, with status migrainosus] Chronic Nonspecific chest pain (9 sources) Chest pain; Translations: [Chest pain, unspecified] Episodic Osteoarthritis (20 sources) Degenerative joint disease of hand; Translations: [Osteoarthritis] Onset: 03-08-2022 Chronic Osteoporosis (20 sources) Senile osteoporosis; Translations: [Age-related osteoporosis without current pathological fracture] Onset: 06-06-2023 Chronic Other aftercare (6 sources) 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; Translations: [Other 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 (current) drug therapy] Episodic Other aftercare (5 sources) Patient encounter status; Translations: [Encounter for therapeutic drug level monitoring] Episodic Other aftercare (2 sources) Drug therapy finding; Translations: [Other assisted (current) drug therapy] Episodic Other aftercare (1 source) Taking high risk medication; Translations: [Other assisted (current) drug therapy] 07-15-2023 Episodic Other and ill-defined heart disease (8 sources) Takotsubo cardiomyopathy; Translations: [Takotsubo syndrome] 06-08-2021 Chronic Comment on above: 05/2021 NO DAMAGE Other and ill-defined heart disease (3 sources) Takotsubo syndrome; Translations: [Takotsubo syndrome] Chronic Other bone disease and musculoskeletal deformities (2 sources) Disorder of bone; Translations: [Disorder of bone, unspecified] Onset: 09-01-2024 08-11-2024 Episodic Other bone disease and musculoskeletal deformities (2 sources) Disorder of bone, unspecified; Translations: [Disorder of bone, unspecified] Onset: 09-01-2024 Episodic Other connective tissue disease (3 sources) History of total replacement of right hip joint; Translations: [Presence of right artificial hip joint] Chronic Other connective tissue disease (1 source) Presence of left artificial shoulder joint; Translations: [Presence of left artificial shoulder joint] Onset: 09-02-2024 Chronic Other connective tissue disease (1 source) Presence of right artificial hip joint; Translations: [Presence of right artificial hip joint] Onset: 10-12-2024 Chronic Other connective tissue disease (1 source) Bilateral trochanteric bursitis; Translations: [Trochanteric bursitis, right hip] Episodic Other hematologic conditions (1 source) Protein level - finding; Translations: [Other specified abnormalities of plasma proteins] Episodic Other hematologic conditions (1 source) Other specified abnormalities of plasma proteins; Translations: [Other abnormal blood chemistry] Episodic Other hematologic conditions (7 sources) Raised cardiac enzyme or marker; Translations: [Other specified abnormalities of plasma proteins] 06-13-2021 Episodic Other nervous system disorders (2 sources) Other chronic pain; Translations: [Other chronic pain] Onset: 09-05-2023 Chronic Other non-traumatic joint disorders (1 source) Bilateral chronic pain of upper limbs; Translations: [Pain in right shoulder] 09-05-2023 Episodic Other non-traumatic joint disorders (2 sources) Pain in right shoulder; Translations: [Pain in right shoulder] Onset: 09-05-2023 Episodic Other non-traumatic joint disorders (2 sources) Pain in left shoulder; Translations: [Pain in left shoulder] Onset: 09-05-2023 Episodic Other non-traumatic joint disorders (2 sources) Pain in unspecified hip; Translations: [Pain in unspecified hip] Onset: 12-03-2023 Episodic Other screening for suspected conditions (not mental disorders or infectious disease) (6 sources) Decreased vitamin D; Translations: [Other specified abnormal findings of blood chemistry] Onset: 05-08-2023 Episodic Pathological fracture (7 sources) Primary osteoporosis; Translations: [Age-related osteoporosis with current pathological fracture, unspecified site, subsequent encounter for fracture with routine healing] Onset: 06-09-2023 07-02-2023 Episodic Phlebitis; thrombophlebitis and thromboembolism (1 source) H/O: thrombosis; Translations: [Personal history of other venous thrombosis and embolism] Episodic Pulmonary heart disease (11 sources) Pulmonary embolism; Translations: [Other pulmonary embolism without acute cor pulmonale] Onset: 10-12-2024 Episodic Comment on above: LUNG 06/2021 Rheumatoid arthritis and related disease (20 sources) Rheumatoid arthritis of multiple joints; Translations: [Rheumatoid arthritis] Onset: 10-04-2022 Chronic Spondylosis; intervertebral disc disorders; other back problems (20 sources) Cervical spondylosis; Translations: [Other spondylosis with myelopathy, cervical region] Onset: 01-02-2022 Chronic Unclassified (2 sources) religious assistant (current) use of 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 agent; Translations: [USP (current) use of 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 agent] Onset: 10-04-2022 Past or Other Problems Problem Classification Problem Date Documented Date Episodic/Chronic Other aftercare (3 sources) Other assisted (current) drug therapy; Translations: [Other 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 (current) drug therapy] Onset: 02-24-2024 Episodic Other aftercare (1 source) Encounter for therapeutic drug level monitoring; Translations: [Encounter for therapeutic drug level monitoring] Onset: 06-21-2024 Episodic Other connective tissue disease (1 source) Psoas tendinitis, right hip; Translations: [Psoas tendinitis, right hip] Onset: 04-24-2024 Episodic Other non-traumatic joint disorders (20 sources) Pain in right hip joint; Translations: [Pain in right hip] Onset: 01-02-2022 Resolved: 10-08-2022 Episodic Other non-traumatic joint disorders (11 sources) Hip pain; Translations: [Pain in right hip] Onset: 01-02-2022 Resolved: 10-08-2022 Episodic Other non-traumatic joint disorders (2 sources) Pain in right hip; Translations: [Pain in right hip] Onset: 06-19-2023 Episodic Spondylosis; intervertebral disc disorders; other back problems (20 sources) Cervico-occipital neuralgia; Translations: [Occipital neuralgia] Onset: 01-02-2022 Episodic Unclassified (11 sources) Onset: 06-19-2022 Resolved: 06-19-2022 06-19-2022 Unclassified (2 sources) religious assistant (current) use of 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 agent; Translations: [religious assistant (current) use of 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 agent] Onset: 10-04-2022 Results Test Name Value Interpretation Reference Range Facility CBC W/Diff, Automatedon 04- Absolute Lymph 1.34 X10 3/uL Normal 0.83-4.51 [facility] Comment on above: Performed By: #### L [id number], L501.1105, L101.9900, L500.3400, L100.0100 #### [facility] [address] [place], [address] Absolute Neut 4.0 X10 3/uL Normal 2.0-7.7 [facility] Comment on above: Performed By: #### L [id number], L501.1105, L101.9900, L500.3400, L100.0100 #### [facility] [address] [place], [address] Basophils/100 WBC (Bld) 1.1 % High 0-1 [facility] Comment on above: Performed By: #### L [id number], [id number], L101.9900, L500.3400, L100.0100 #### [facility] [address] [place], [address] Eosinophils/100 WBC (Bld) 3.6 % Normal 0-5 [facility] Comment on above: Performed By: #### L [id number], [id number], L101.9900, L500.3400, L100.0100 #### [facility] [address] [place], [address] Erythrocyte distribution width (RBC) [Ratio] 14.9 % High 11.6-14.6 [facility] Comment on above: Performed By: #### L [id number], [id number], L101.9900, L500.3400, L100.0100 #### [facility] [address] [place], [address] Hematocrit (Bld) [Volume fraction] 33.1 % Low 37-47 [facility] Comment on above: Performed By: #### L [id number], [id number], L101.9900, L500.3400, L100.0100 #### [facility] [address] [place], [address] Hemoglobin (Bld) [Mass/Vol] 10.7 g/dL Low 12.0-15.0 [facility] Comment on above: Performed By: #### L [id number], [id number], L101.9900, L500.3400, L100.0100 #### [facility] [address] [place], [address] IG% 0.500 Normal 0.0-0.9 [facility] Comment on above: Result Comment: IG% - Immature Granulocytes (promyelocytes, myelocytes and metamyelocytes) > 1% indicates that a LEFT SHIFT is Present. Performed By: #### L [id number], L501.1105, L101.9900, L500.3400, L100.0100 #### [facility] [address] [place], [address] Lymphocytes/100 WBC (Bld) 20.8 % Normal 19-41 [facility] Comment on above: Performed By: #### L [id number], [id number], L101.9900, L500.3400, L100.0100 #### [facility] [address] [place], [address] MCH (RBC) [Entitic mass] 31.6 pg Normal 27.0-32.0 [facility] Comment on above: Performed By: #### L [id number], [id number], L101.9900, L500.3400, L100.0100 #### [facility] [address] [place], [address] MCHC (RBC) [Mass/Vol] 32.3 g/dL Normal 32-36 [facility] Comment on above: Performed By: #### L [id number], [id number], L101.9900, L500.3400, L100.0100 #### [facility] [address] [place], [address] MCV (RBC) [Entitic vol] 97.6 fL Normal 81-99 [facility] Comment on above: Performed By: #### L [id number], [id number], L101.9900, L500.3400, L100.0100 #### [facility] [address] [place], [address] Monocytes/100 WBC (Bld) 12.4 % High 0-10 [facility] Comment on above: Performed By: #### L [id number], [id number], L101.9900, L500.3400, L100.0100 #### [facility] [address] [place], [address] Neutrophils/100 WBC (Bld) 61.6 % Normal 47-70 [facility] Comment on above: Performed By: #### L [id number], L501.1105, L101.9900, L500.3400, L100.0100 #### [facility] [address] [place], [address] Nucleated RBC (Bld) [#/Vol] 0 10*3/uL Normal 0-5 [facility] Comment on above: Performed By: #### L [id number], L501.1105, L101.9900, L500.3400, L100.0100 #### [facility] [address] [place], [address] Platelet mean volume (Bld) [Entitic vol] 9.1 fL Normal 6.2-12.0 [facility] Comment on above: Performed By: #### L [id number], L501.1105, L101.9900, L500.3400, L100.0100 #### [facility] [address] [place], [address] Platelets (Bld) [#/Vol] 470 10*3/uL High 150-450 [facility] Comment on above: Performed By: #### L [id number], L501.1105, L101.9900, L500.3400, L100.0100 #### [facility] [address] [place], [address] RBC (Bld) [#/Vol] 3.39 10*6/uL Low 4.2-5.4 [facility] Comment on above: Performed By: #### L [id number], L501.1105, L101.9900, L500.3400, L100.0100 #### [facility] [address] [place], [address] RDW SD 53.3 fl High 35.1-43.9 [facility] Comment on above: Performed By: #### L [id number], L501.1105, L101.9900, L500.3400, L100.0100 #### [facility] [address] [place], [address] WBC (Bld) [#/Vol] 6.5 10*3/uL Normal 4.4-11.0 [facility] Comment on above: Performed By: #### L [id number], L501.1105, L101.9900, L500.3400, L100.0100 #### [facility] [address] [place], [address] CRPon 10-25-2024 C-REACTIVE PROT 35.40 mg/L High 0.0-3.0 [facility] Comment on above: Performed By: #### L 100.0100, [id number], L500.3400, L501.1105, L101.9900 #### [facility] [address] [place], [address] Erythrocyte Sed Rateon 10-25 SED RATE 10 mm/hr Normal 0-30 [facility] Comment on above: Performed By: #### L [id number], L501.1105, L101.9900, L500.3400, L100.0100 #### [facility] [address] [place], [address] Liver Profileon 10-25-2024 Albumin [Mass/Vol] 4.0 g/dL Normal 3.4-4.8 [facility] Comment on above: Performed By: #### L [id number], L501.1105, L101.9900, L500.3400, L100.0100 #### [facility] [address] [place], [address] ALK PHOS 98 U/L Normal 35-104 [facility] Comment on above: Performed By: #### L [id number], L501.1105, L101.9900, L500.3400, L100.0100 #### [facility] [address] [place], [address] ALT [Catalytic activity/Vol] 23 U/L Normal <=34 [facility] Comment on above: Performed By: #### L [id number], L501.1105, L101.9900, L500.3400, L100.0100 #### [facility] [address] [place], [address] AST [Catalytic activity/Vol] 28 U/L Normal <=31 [facility] Comment on above: Performed By: #### L [id number], L501.1105, L101.9900, L500.3400, L100.0100 #### [facility] [address] [place], [address] Bilirubin [Mass/Vol] 0.28 mg/dL Normal 0.00-1.30 [facility] Comment on above: Performed By: #### L [id number], L501.1105, L101.9900, L500.3400, L100.0100 #### [facility] [address] [place], [address] Bilirubin.direct [Mass/Vol] 0.13 mg/dL Normal 0.00-0.30 [facility] Comment on above: Performed By: #### L 501.6710, L501.1105, L101.9900, L500.3400, L100.0100 #### [facility] [address] [place], [address] Globulin (S) [Mass/Vol] 2.8 g/dL Normal 2.2-4.2 [facility] Comment on above: Performed By: #### L 501.6710, L501.1105, L101.9900, L500.3400, L100.0100 #### [facility] [address] [place], [address] T PROT 6.7 g/dL Normal 5.9-8.4 [facility] Comment on above: Performed By: #### L 501.6710, L501.1105, L101.9900, L500.3400, L100.0100 #### [facility] [address] [place], [address] Serum Creatinine AND GFRon 0 - Creatinine [Mass/Vol] 0.61 mg/dL Low 0.70-1.20 [facility] Comment on above: Performed By: #### L 501.6710, L501.1105, L101.9900, L500.3400, L100.0100 #### [facility] [address] [place], [address] GFR/1.73 sq M.predicted among non-blacks MDRD (S/P/Bld) [Vol rate/Area] 97 mL/min/{1.73_m2} Normal >60 [facility] Comment on above: Result Comment: mL/m in/1.73m2 CKD-EPI Creatinine Equation (2020) Performed By: #### L 501.6710, L501.1105, L101.9900, L500.3400, L100.0100 #### [facility] [address] [place], [address] .Auto Diffon 10-13-2024 Basophil, Absolute 0.0 10 3/mcL Normal 0.0-0.3 [facility] Comment on above: Performed By: #### C BC, ADIFF, BMP, GFR, ANEU ####[address] [place], [place] [address] Basophils/100 WBC (Bld) 0.3 % Normal 0.0-2.5 [facility] Comment on above: Performed By: #### C BC, ADIFF, BMP, GFR, ANEU ####[address] [place], [place] [address] Eosinophil, Absolute 0.0 10 3/mcL Normal 0.0-0.7 [facility] Comment on above: Performed By: #### C BC, ADIFF, BMP, GFR, ANEU ####[address] [place], [place] [address] Eosinophils/100 WBC (Bld) 0.1 % Normal 0.0-6.0 [facility] Comment on above: Performed By: #### C BC, ADIFF, BMP, GFR, ANEU ####[address] [place], [place] [address] Lymphocyte, Absolute 1.5 10 3/mcL Normal 0.9-4.3 [facility] Comment on above: Performed By: #### C BC, ADIFF, BMP, GFR, ANEU ####[facility] [place], [place] [address] Lymphocytes/100 WBC (Bld) 11.8 % Low 20.0-40.0 [facility] Comment on above: Performed By: #### C BC, ADIFF, BMP, GFR, ANEU ####[address] [place] [address] Monocyte, Absolute 1.4 10 3/mcL Normal 0.1-1.4 [facility] Comment on above: Performed By: #### C BC, ADIFF, BMP, GFR, ANEU ####[address] [place] [address] Monocytes/100 WBC (Bld) 11.0 % Normal 2.0-13.0 [facility] Comment on above: Performed By: #### C BC, ADIFF, BMP, GFR, ANEU ####[address] [place] [address] Neutrophils/100 WBC (Bld) 76.8 % High 50.0-75.0 [facility] Comment on above: Performed By: #### C BC, ADIFF, BMP, GFR, ANEU ####[address] [place] [address] .GFRon 10-13-2024 Estimated Glomerular Filtration Rate 97 ml/min/1.73sqm Normal [facility] Comment on above: Result Comment: Stages of Chronic Kidney Disease (CKD) Stage Description eGFR(ml/min/1.73 sq.m.) CKD 1 Normal kidney function or >=90 normal kindney function with possible kidney damage (ex. Proteinuria) CKD 2 Kidney damage with mild loss 60-89 of kidney function CKD 3a Mild to moderate loss of kidney 45-59 function CKD 3b Moderate to severe loss of 30-44 of kindey function CKD 4 Severe loss of kidney function 15-29 CKD 5 Kidney failure <15 Note: (go live 2024) the eGFR calculation was updated to the 2020 CKD-EPI creatinine equation without a race factor to calculate the eGFR results. Performed By: #### A LISHA DE SANTIAGO #### [address] [place], [place] [address] .NEUABSon 10-13-2024 Neutrophil, Absolute 9.6 10 3/mcL High 2.3-8.1 [facility] Comment on above: Performed By: #### A LISHA DE SANTIAGO #### [address] [address] BMPon 10-13-2024 BUN/Creatinine Ratio 31 ratio High 7-27 [facility] Comment on above: Performed By: #### A LISHA DE SANTIAGO #### [address] [address] Calcium [Mass/Vol] 8.7 mg/dL Normal 8.4-10.2 [facility] Comment on above: Performed By: #### A LISHA DE SANTIAGO #### [address] [address] Chloride [Moles/Vol] 108 mmol/L High 98-107 [facility] Comment on above: Performed By: #### A LISHA DE SANTIAGO #### [address] [address] CO2 [Moles/Vol] 28 mmol/L Normal 23-31 [facility] Comment on above: Performed By: #### A LISHA DE SANTIAGO #### [address] [address] Creatinine [Mass/Vol] 0.61 mg/dL Normal 0.55-1.02 [facility] Comment on above: Result Comment: Test ing performed on Siemens Dimension EXL analyzer using a modified kinetic Reji technique. Performed By: #### A LISHA DE SANTIAGO #### [address] [address] Electrolyte Balance 5.0 mEq/L Normal 4.0-15.0 [facility] Comment on above: Performed By: #### A LISHA DE SANTIAGO #### [address] [address] Glucose [Mass/Vol] 104 mg/dL Normal 80-115 [facility] Comment on above: Performed By: #### A LISHA DE SANTIAGO #### [address] [address] Potassium [Moles/Vol] 4.5 mmol/L Normal 3.5-5.1 [facility] Comment on above: Performed By: #### A LISHA DE SANTIAGO #### [address] [address] Sodium [Moles/Vol] 141 mmol/L Normal 136-145 [facility] Comment on above: Performed By: #### A LISHA DE SANTIAGO #### [address] [address] Urea nitrogen [Mass/Vol] 19 mg/dL High 7-18 [facility] Comment on above: Performed By: #### A LISHA DE SANTIAGO #### [address] [address] CBCon 10-13-2024 Erythrocyte distribution width (RBC) [Ratio] 15.3 % Normal 11.5-15.5 [facility] Comment on above: Performed By: #### C BC, ADIFF, BMP, GFR, ANEU ####[address] [address] Hematocrit (Bld) [Volume fraction] 33.5 % Low 34.0-46.0 [facility] Comment on above: Performed By: #### C BC, ADIFF, BMP, GFR, ANEU ####[address] [address] Hgb 11.4 G/dL Low 12.0-16.0 [facility] Comment on above: Performed By: #### C BC, ADIFF, BMP, GFR, ANEU ####[address] [address] MCH (RBC) [Entitic mass] 31.4 pg Normal 27.0-33.0 [facility] Comment on above: Performed By: #### C BC, ADIFF, BMP, GFR, ANEU ####[address] [address] MCHC 34.1 G/dL Normal 32.0-36.0 [facility] Comment on above: Performed By: #### C BC, ADIFF, BMP, GFR, ANEU ####[facility] [place], [place] [address] MCV (RBC) [Entitic vol] 91.8 fL Normal 80.0-99.0 [facility] Comment on above: Performed By: #### C BC, ADIFF, BMP, GFR, ANEU ####[address] [place], [place] [address] Platelet 177 10 3/mcL Normal 150-450 [facility] Comment on above: Performed By: #### C BC, ADIFF, BMP, GFR, ANEU ####[address] [place], [place] [address] Platelet mean volume (Bld) [Entitic vol] 8.2 fL Normal 6.6-10.5 [facility] Comment on above: Performed By: #### C BC, ADIFF, BMP, GFR, ANEU ####[place] [id number] RBC 3.64 10 6/mcL Low 4.10-5.30 [facility] Comment on above: Performed By: #### C BC, ADIFF, BMP, GFR, ANEU ####[place] [id number] WBC 12.5 10 3/mcL High 4.5-10.8 [facility] Comment on above: Performed By: #### C BC, ADIFF, BMP, GFR, ANEU ####[address] [address] .Auto Diffon 10-12-2024 Basophil, Absolute 0.0 10 3/mcL Normal 0.0-0.3 [facility] Comment on above: Performed By: #### C BC, BMP, ADIFF, ANEU, GFR, TROPHS ####[address] [place], [place] [address] Basophils/100 WBC (Bld) 0.6 % Normal 0.0-2.5 [facility] Comment on above: Performed By: #### C BC, BMP, ADIFF, ANEU, GFR, TROPHS ####[address] [place], [place] [address] Eosinophil, Absolute 0.0 10 3/mcL Normal 0.0-0.7 [facility] Comment on above: Performed By: #### C BC, BMP, ADIFF, ANEU, GFR, TROPHS ####[address] [place], [place] [address] Eosinophils/100 WBC (Bld) 0.9 % Normal 0.0-6.0 [facility] Comment on above: Performed By: #### C BC, BMP, ADIFF, ANEU, GFR, TROPHS ####[address] [place], [place] [address] Lymphocyte, Absolute 0.9 10 3/mcL Normal 0.9-4.3 [facility] Comment on above: Performed By: #### C BC, BMP, ADIFF, ANEU, GFR, TROPHS ####[address] [address] Lymphocytes/100 WBC (Bld) 17.0 % Low 20.0-40.0 [facility] Comment on above: Performed By: #### C BC, BMP, ADIFF, ANEU, GFR, TROPHS ####[address] [place], [place] [address] Monocyte, Absolute 0.2 10 3/mcL Normal 0.1-1.4 [facility] Comment on above: Performed By: #### C BC, BMP, ADIFF, ANEU, GFR, TROPHS ####[address] [address] Monocytes/100 WBC (Bld) 4.1 % Normal 2.0-13.0 [facility] Comment on above: Performed By: #### C BC, BMP, ADIFF, ANEU, GFR, TROPHS ####[address] [address] Neutrophils/100 WBC (Bld) 77.4 % High 50.0-75.0 [facility] Comment on above: Performed By: #### C BC, BMP, ADIFF, ANEU, GFR, TROPHS ####[place] [place], [place] [address] .GFRon 10-12-2024 Estimated Glomerular Filtration Rate 85 ml/min/1.73sqm Normal [facility] Comment on above: Result Comment: Stages of Chronic Kidney Disease (CKD) Stage Description eGFR(ml/min/1.73 sq.m.) CKD 1 Normal kidney function or >=90 normal kindney function with possible kidney damage (ex. Proteinuria) CKD 2 Kidney damage with mild loss 60-89 of kidney function CKD 3a Mild to moderate loss of kidney 45-59 function CKD 3b Moderate to severe loss of 30-44 of kindey function CKD 4 Severe loss of kidney function 15-29 CKD 5 Kidney failure <15 Note: (go live 2024) the eGFR calculation was updated to the 2020 CKD-EPI creatinine equation without a race factor to calculate the eGFR results. Performed By: #### C BC, BMP, ADIFF, ANEU, GFR, TROPHS ####[facility] [place], [place] [address] .NEUABSon 10-12-2024 Neutrophil, Absolute 4.2 10 3/mcL Normal 2.3-8.1 [facility] Comment on above: Performed By: #### C BC, BMP, ADIFF, ANEU, GFR, TROPHS ####[facility] [place], [place] [address] ABO/Rh (Gel)on 10-12-2024 ABO/Rh Interp Positive Invalid Interpretation Code [facility] Comment on above: Order Comment: Speci men grossly hemolyzed. Put in for recollect 1125 10/12/24 BRM Redraw also hemolyzed. Phlebs going to recollect now. BRM 1155 10/12/24 Performed By: #### A LISHA DE SANTIAGO #### [place] [address] [place], [place] [address] ABS (Gel)on 10-12-2024 ABSC Interp (Gel) Negative Normal [facility] Comment on above: Performed By: #### A JONNATHAN ABSGEL #### [place] [address] [place], [place] [address] BMPon 10-12-2024 BUN/Creatinine Ratio 28 ratio High 7-27 [facility] Comment on above: Performed By: #### C BC, BMP, ADIFF, ANEU, GFR, TROPHS ####[address] [place], [place] [address] Calcium [Mass/Vol] 8.1 mg/dL Low 8.4-10.2 [facility] Comment on above: Performed By: #### C BC, BMP, ADIFF, ANEU, GFR, TROPHS ####[address] [address] Chloride [Moles/Vol] 108 mmol/L High 98-107 [facility] Comment on above: Performed By: #### C BC, BMP, ADIFF, ANEU, GFR, TROPHS ####[address] [address] CO2 [Moles/Vol] 28 mmol/L Normal 23-31 [facility] Comment on above: Performed By: #### C BC, BMP, ADIFF, ANEU, GFR, TROPHS ####[address] [address] Creatinine [Mass/Vol] 0.76 mg/dL Normal 0.55-1.02 [facility] Comment on above: Result Comment: Test ing performed on Siemens Dimension EXL analyzer using a modified kinetic Reji technique. Performed By: #### C BC, BMP, ADIFF, ANEU, GFR, TROPHS ####[address] [address] Electrolyte Balance 4.0 mEq/L Normal 4.0-15.0 [facility] Comment on above: Performed By: #### C BC, BMP, ADIFF, ANEU, GFR, TROPHS ####[address] [place], [place] [address] Glucose [Mass/Vol] 146 mg/dL High 80-115 [facility] Comment on above: Performed By: #### C BC, BMP, ADIFF, ANEU, GFR, TROPHS ####[address] [address] Potassium [Moles/Vol] 4.2 mmol/L Normal 3.5-5.1 [facility] Comment on above: Performed By: #### C BC, BMP, ADIFF, ANEU, GFR, TROPHS ####[address] [place] [id number] Sodium [Moles/Vol] 140 mmol/L Normal 136-145 [facility] Comment on above: Performed By: #### C BC, BMP, ADIFF, ANEU, GFR, TROPHS ####[address] [address] Urea nitrogen [Mass/Vol] 21 mg/dL High 7-18 [facility] Comment on above: Performed By: #### C BC, BMP, ADIFF, ANEU, GFR, TROPHS ####[address] [id number] CBCon 10-12-2024 Erythrocyte distribution width (RBC) [Ratio] 15.2 % Normal 11.5-15.5 [facility] Comment on above: Performed By: #### C BC, BMP, ADIFF, ANEU, GFR, TROPHS ####[place] [address] Hematocrit (Bld) [Volume fraction] 34.8 % Normal 34.0-46.0 [facility] Comment on above: Performed By: #### C BC, BMP, ADIFF, ANEU, GFR, TROPHS ####[place] [address] Hgb 11.8 G/dL Low 12.0-16.0 [facility] Comment on above: Performed By: #### C BC, BMP, ADIFF, ANEU, GFR, TROPHS ####[place] [address] MCH (RBC) [Entitic mass] 31.5 pg Normal 27.0-33.0 [facility] Comment on above: Performed By: #### C BC, BMP, ADIFF, ANEU, GFR, TROPHS ####[place] [id number] MCHC 34.1 G/dL Normal 32.0-36.0 [facility] Comment on above: Performed By: #### C BC, BMP, ADIFF, ANEU, GFR, TROPHS ####[address] [place], [place] [address] MCV (RBC) [Entitic vol] 92.4 fL Normal 80.0-99.0 [facility] Comment on above: Performed By: #### C BC, BMP, ADIFF, ANEU, GFR, TROPHS ####[address] [place], [place] [address] Platelet 182 10 3/mcL Normal 150-450 [facility] Comment on above: Performed By: #### C BC, BMP, ADIFF, ANEU, GFR, TROPHS ####[address] [place], [place] [address] Platelet mean volume (Bld) [Entitic vol] 7.4 fL Normal 6.6-10.5 [facility] Comment on above: Performed By: #### C BC, BMP, ADIFF, ANEU, GFR, TROPHS ####[address] [place], [place] [address] RBC 3.76 10 6/mcL Low 4.10-5.30 [facility] Comment on above: Performed By: #### C BC, BMP, ADIFF, ANEU, GFR, TROPHS ####[address] [place], [place] [address] WBC 5.4 10 3/mcL Normal 4.5-10.8 [facility] Comment on above: Performed By: #### C BC, BMP, ADIFF, ANEU, GFR, TROPHS ####[address] [place], [place] [address] TROPHSon 10-12-2024 High Sensitivity Troponin I 47 ng/L Normal 0-51 [facility] Comment on above: Result Comment: High Sensitive Troponin I Reference Ranges: Female: 0-51 ng/L Male: 0-76 ng/L Testing performed on [employer] using a homogeneous sandwich chemiluminescent immunoassay based on [employer] technology. Performed By: #### C BC, BMP, ADIFF, ANEU, GFR, TROPHS ####[facility] [place], [place] [address] XR FLUORO 1-2 HRS TECH TIMEo n 10-12-2024 XR FLUORO 1-2 HRS TECH TIME ORIGINAL Images acquired, not reported on this accession number. Normal [facility] XR HIP RIGHT W/PELVIS 4 VIEW Son 10-12-2024 XR HIP RIGHT W/PELVIS 4 VIEWS ORIGINAL EXAMINATION: 2 XRAY VIEWS OF THE RIGHT HIP, 1 VIEWS OF THE PELVIS 3 VIEWS OF THE PELVIS. COMPARISON: None. HISTORY: ORDERING SYSTEM PROVIDED HISTORY: Reason for Exam: Status Post Arthroplasty FINDINGS: Lower lumbar spondylosis and facet arthrosis. SI joints are maintained. Pubic symphysis is maintained. 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 Expected immediate right hip postop changes with swelling and subcutaneous gas. Hardware is intact. No periprosthetic fracture. IMPRESSION: Expected immediate right hip postop changes with swelling and subcutaneous gas. Interpreted by: Radha Olivier Preliminary Report By: Radha Olivier Electronically signed By Radha Olivier Dictated Date: 10/12/2024 3:21:05 PM Prelim Date: 10/12/2024 3:22:23 PM Sign Date: 10/12/2024 3:22:23 PM Ordering Provider: MABLE SANTOS Normal [facility] Calculated very low density lipoprotein (VLDL) cholesterol measurementOrdered By: Cory Membreno on 10-06-2024 VLDL Cholesterol 18 mg/dL 5-40 [facility] LDL calc ser/plasOrdered By: Cory Membreno on 10-06-2024 LDL Cholesterol, Calculated 134 mg/dL [facility] Comment on above: Lhblhwhecv=141-999 m g/dL & Higher Tqpd=881 mg/dL or greater Lipid Profileon 10-06-2024 CHOL:HDL 3.07 Normal [facility] Comment on above: Performed By: #### L 100.0100, L501.6710, L500.3400, L501.1105, L101.9900 #### [facility] [address] [place], [place], [id number] Cholesterol [Mass/Vol] 225 mg/dL High <=200 [facility] Comment on above: Result Comment: Chol esterol level, Desirable <200 mg/dL Borderline high cholesterol 200-239 mg/dL High cholesterol >=240 mg/dL Recommendations of the NCEP Adult Treatment Panel for the following risk-cutoff thresholds for the [place] population. Performed By: #### L 100.0100, L501.6710, L500.3400, L501.1105, L101.9900 #### [facility] [address] [place], [address] Cholesterol in HDL [Mass/Vol] 73 mg/dL Normal [facility] Comment on above: Result Comment: Jhoana onal Cholesterol Education Program (NCEP) guidelines: <40 mg/dL: Low HDL-cholesterol (major risk factor for CHD) >= 60 mg/dL: High HDL-cholesterol (negative risk factor for CHD) HDL-cholesterol is affected by a number of factors, e.g. smoking, exercise, hormones, sex and age. Performed By: #### L 100.0100, L501.6710, L500.3400, L501.1105, L101.9900 #### [facility] [address] [place], [address] Cholesterol in LDL [Mass/Vol] 134 mg/dL Normal [facility] Comment on above: Result Comment: Bord jpufhl=935-548 mg/dL Higher Npvf=236 mg/dL or greater Performed By: #### L 100.0100, L501.6710, L500.3400, L501.1105, L101.9900 #### [facility] [address] [place], [address] Cholesterol in VLDL [Mass/Vol] 18 mg/dL Normal 5-40 [facility] Comment on above: Performed By: #### L 100.0100, L501.6710, L500.3400, L501.1105, L101.9900 #### [facility] [address] [place], [address] Triglyceride [Mass/Vol] 88 mg/dL Normal [facility] Comment on above: Result Comment: The drugs N-Acetylcysteine and Metamizole may falsely depress this assay. Normal range: <150 mg/dL Borderline High: 150-199 mg/dL High: 200-499 mg/dL Very High: >500 mg/dL Performed By: #### L 100.0100, L501.6710, L500.3400, L501.1105, L101.9900 #### [facility] [place], [address] Screening total cholesterol/ high density lipoprotein (HDL) cholesterol ratioOrdered By: Cory Membreno on 10-06-2024 Cholesterol.total/Jailyn sterol in HDL [Mass ratio] 3.07 {ratio} [facility] Serum or plasma cholesterol in HDL measurement (mass/volume)Ordered By: Cory Membreno on 10-06-2024 Cholesterol in HDL [Mass/Vol] 73 mg/dL >40 [facility] Comment on above: National Cholesterol Education Program (NCEP) guidelines:<40 mg/dL: Low HDL-cholesterol (major risk factor for CHD)>= 60 mg/dL: High HDL-cholesterol (negative risk factor for CHD)HDL-cholesterol is affected by a number of factors, e.g. smoking, exercise, hormones, sex and age. Serum or plasma cholesterol measurement (mass/volume)Ordered By: Cory Membreno on 10-06-2024 Cholesterol [Mass/Vol] 225 mg/dL High <201 [facility] Comment on above: Cholesterol level, D esirable <200 mg/dLBorderline high cholesterol 200-239 mg/dLHigh cholesterol >=240 mg/dLRecommendations of the NCEP Adult Treatment Panel for the following risk-cutoff thresholds for the [place] population. Triglycerides measurementOrd ered By: Cory Membreno on 10-06-2024 Triglyceride [Mass/Vol] 88 mg/dL <199 [facility] Comment on above: The drugs N-Acetylcy steine and Metamizole may falsely depress this assay. Normal range: <150 mg/dLBorderline High: 150-199 mg/dLHigh: 200-499 mg/dLVery High: >500 mg/dL .Auto Diffon 09-13-2024 Basophil, Absolute 0.1 10 3/mcL Normal 0.0-0.2 [facility] Comment on above: Performed By: #### C BC, ADIFF, ALB, BMP, ANEU, ABOGEL, GFR, ABSGEL #### [address] [address] Basophils/100 WBC (Bld) 2.3 % Normal 0.0-2.5 [facility] Comment on above: Performed By: #### C BC, ADIFF, ALB, BMP, ANEU, ABOGEL, GFR, ABSGEL #### [address] [address] Eosinophil, Absolute 0.2 10 3/mcL Normal 0.0-0.7 [facility] Comment on above: Performed By: #### C BC, ADIFF, ALB, BMP, ANEU, ABOGEL, GFR, ABSGEL #### [address] [address] Eosinophils/100 WBC (Bld) 4.6 % Normal 0.0-7.0 [facility] Comment on above: Performed By: #### C BC, ADIFF, ALB, BMP, ANEU, ABOGEL, GFR, ABSGEL #### [address] [address] Lymphocyte, Absolute 1.8 10 3/mcL Normal 0.9-4.3 [facility] Comment on above: Performed By: #### C BC, ADIFF, ALB, BMP, ANEU, ABOGEL, GFR, ABSGEL #### [address] [address] Lymphocytes/100 WBC (Bld) 45.6 % High 20.0-40.0 [facility] Comment on above: Performed By: #### C BC, ADIFF, ALB, BMP, ANEU, ABOGEL, GFR, ABSGEL #### [address] [address] Monocyte, Absolute 0.6 10 3/mcL Normal 0.1-1.4 [facility] Comment on above: Performed By: #### C BC, ADIFF, ALB, BMP, ANEU, ABOGEL, GFR, ABSGEL #### [address] [address] Monocytes/100 WBC (Bld) 15.7 % High 2.0-13.0 [facility] Comment on above: Performed By: #### C BC, ADIFF, ALB, BMP, ANEU, ABOGEL, GFR, ABSGEL #### [address] [address] Neutrophils/100 WBC (Bld) 31.8 % Low 50.0-75.0 [facility] Comment on above: Performed By: #### C BC, ADIFF, ALB, BMP, ANEU, ABOGEL, GFR, ABSGEL #### [address] [address] .GFRon 09-13-2024 Estimated Glomerular Filtration Rate 86 ml/min/1.73sqm Normal [facility] Comment on above: Result Comment: Stages of Chronic Kidney Disease (CKD) Stage Description eGFR(ml/min/1.73 sq.m.) CKD 1 Normal kidney function or >=90 normal kindney function with possible kidney damage (ex. Proteinuria) CKD 2 Kidney damage with mild loss 60-89 of kidney function CKD 3a Mild to moderate loss of kidney 45-59 function CKD 3b Moderate to severe loss of 30-44 of kindey function CKD 4 Severe loss of kidney function 15-29 CKD 5 Kidney failure <15 Note: (go live 2024) the eGFR calculation was updated to the 2020 CKD-EPI creatinine equation without a race factor to calculate the eGFR results. Performed By: #### C BC, ADIFF, ALB, BMP, ANEU, ABOGEL, GFR, ABSGEL #### [address] [address] .NEUABSon 09-13-2024 Neutrophil, Absolute 1.3 10 3/mcL Low 2.3-8.1 [facility] Comment on above: Performed By: #### C BC, ADIFF, ALB, BMP, ANEU, ABOGEL, GFR, ABSGEL #### [address] [address] ABO/Rh (Gel)on 09-13-2024 ABO/Rh Interp Positive Invalid Interpretation Code [facility] Comment on above: Order Comment: SURG GIGI 4/15 -AC Performed By: #### C BC, ADIFF, ALB, BMP, ANEU, ABOGEL, GFR, ABSGEL ####[address] [address] ABS (Gel)on 09-13-2024 ABSC Interp (Gel) Negative Normal [facility] Comment on above: Order Comment: SURG GIGI 4/15 -AC Performed By: #### C BC, ADIFF, ALB, BMP, ANEU, ABOGEL, GFR, ABSGEL ####[address] [address] ALBon 09-13-2024 Albumin Level 3.9 G/dL Normal 3.4-4.8 [facility] Comment on above: Performed By: #### C BC, ADIFF, ALB, BMP, ANEU, ABOGEL, GFR, ABSGEL #### [address] [address] BMPon 09-13-2024 BUN/Creatinine Ratio 24 ratio Normal 7-27 [facility] Comment on above: Performed By: #### C BC, ADIFF, ALB, BMP, ANEU, ABOGEL, GFR, ABSGEL #### [address] [address] Calcium [Mass/Vol] 9.7 mg/dL Normal 8.4-10.2 [facility] Comment on above: Performed By: #### C BC, ADIFF, ALB, BMP, ANEU, ABOGEL, GFR, ABSGEL #### [address] [address] Chloride [Moles/Vol] 105 mmol/L Normal 98-107 [facility] Comment on above: Performed By: #### C BC, ADIFF, ALB, BMP, ANEU, ABOGEL, GFR, ABSGEL #### [address] [address] CO2 [Moles/Vol] 29 mmol/L Normal 23-31 [facility] Comment on above: Performed By: #### C BC, ADIFF, ALB, BMP, ANEU, ABOGEL, GFR, ABSGEL #### [address] [address] Creatinine [Mass/Vol] 0.75 mg/dL Normal 0.55-1.02 [facility] Comment on above: Result Comment: Test ing performed on Siemens Dimension EXL analyzer using a modified kinetic Reji technique. Performed By: #### C BC, ADIFF, ALB, BMP, ANEU, ABOGEL, GFR, ABSGEL #### [address] [address] Electrolyte Balance 7.0 mEq/L Normal 4.0-15.0 [facility] Comment on above: Performed By: #### C BC, ADIFF, ALB, BMP, ANEU, ABOGEL, GFR, ABSGEL #### [place] [address] Glucose [Mass/Vol] 88 mg/dL Normal 80-115 [facility] Comment on above: Performed By: #### C BC, ADIFF, ALB, BMP, ANEU, ABOGEL, GFR, ABSGEL #### [address] [address] Potassium [Moles/Vol] 3.9 mmol/L Normal 3.5-5.1 [facility] Comment on above: Performed By: #### C BC, ADIFF, ALB, BMP, ANEU, ABOGEL, GFR, ABSGEL #### [address] [address] Sodium [Moles/Vol] 141 mmol/L Normal 136-145 [facility] Comment on above: Performed By: #### C BC, ADIFF, ALB, BMP, ANEU, ABOGEL, GFR, ABSGEL #### [place] [address] Urea nitrogen [Mass/Vol] 18 mg/dL Normal 7-18 [facility] Comment on above: Performed By: #### C BC, ADIFF, ALB, BMP, ANEU, ABOGEL, GFR, ABSGEL #### [address] [address] CBCon 09-13-2024 Erythrocyte distribution width (RBC) [Ratio] 15.5 % Normal 11.5-15.5 [facility] Comment on above: Order Comment: Pre-A dmission Testing Performed By: #### C BC, ADIFF, ALB, BMP, ANEU, ABOGEL, GFR, ABSGEL #### [place] [address] Hematocrit (Bld) [Volume fraction] 41.6 % Normal 34.0-46.0 [facility] Comment on above: Order Comment: Pre-A dmission Testing Performed By: #### C BC, ADIFF, ALB, BMP, ANEU, ABOGEL, GFR, ABSGEL #### [place] [address] Hgb 14.1 G/dL Normal 12.0-16.0 [facility] Comment on above: Order Comment: Pre-A dmission Testing Performed By: #### C BC, ADIFF, ALB, BMP, ANEU, ABOGEL, GFR, ABSGEL #### [address] [address] MCH (RBC) [Entitic mass] 30.5 pg Normal 27.0-33.0 [facility] Comment on above: Order Comment: Pre-A dmission Testing Performed By: #### C BC, ADIFF, ALB, BMP, ANEU, ABOGEL, GFR, ABSGEL #### [place] [address] MCHC 33.9 G/dL Normal 32.0-36.0 [facility] Comment on above: Order Comment: Pre-A dmission Testing Performed By: #### C BC, ADIFF, ALB, BMP, ANEU, ABOGEL, GFR, ABSGEL #### [place] [id number] MCV (RBC) [Entitic vol] 90.1 fL Normal 80.0-99.0 [facility] Comment on above: Order Comment: Pre-A dmission Testing Performed By: #### C BC, ADIFF, ALB, BMP, ANEU, ABOGEL, GFR, ABSGEL #### [address] [address] Platelet 201 10 3/mcL Normal 150-450 [facility] Comment on above: Order Comment: Pre-A dmission Testing Performed By: #### C BC, ADIFF, ALB, BMP, ANEU, ABOGEL, GFR, ABSGEL #### [address] [address] Platelet mean volume (Bld) [Entitic vol] 8.0 fL Normal 6.6-10.5 [facility] Comment on above: Order Comment: Pre-A dmission Testing Performed By: #### C BC, ADIFF, ALB, BMP, ANEU, ABOGEL, GFR, ABSGEL #### [address] [address] RBC 4.61 10 6/mcL Normal 4.10-5.30 [facility] Comment on above: Order Comment: Pre-A dmission Testing Performed By: #### C BC, ADIFF, ALB, BMP, ANEU, ABOGEL, GFR, ABSGEL #### [address] [address] WBC 4.0 10 3/mcL Low 4.5-10.8 [facility] Comment on above: Order Comment: Pre-A dmission Testing Performed By: #### C BC, ADIFF, ALB, BMP, ANEU, ABOGEL, GFR, ABSGEL #### [address] [address] MRSAPCRon 09-13-2024 MRSA (PCR) Not detected Normal Not Detected [facility] Comment on above: Result Comment: [place] [id number] Performed By: #### A LISHA DE SANTIAGO #### [address] [address] MRSA PCR Int Normal [facility] Comment on above: Result Comment: MRSA DNA not detected by Real-Time Polymerase Chain Reaction (PCR). A negative result may be due to intermittent colonization. Colonization may vary depending on patient treatment, patient status, or exposure to high-risk environments. As with all PCR based in vitro diagnostic tests, extremely low levels of target below the limit of detection of the assay may be detected, but results may not be reproducible. See Below Performed By: #### A LISHA DE SANTIAGO #### [place] [address] [place], [place] [address] L506.1001on 08-31-2024 Vitamin D 25-OH 46.1 ng/mL Normal 30-100 [facility] Comment on above: Result Comment: Shelley min D Status Deficiency: <20 ng/mL (50nmol/L) Insufficiency: 20-30 ng/mL (50-75 nmol/L) Sufficiency: 30-100 ng/mL (75-250 nmol/L) Toxicity: >100 ng/mL (>250 nmol/L) Performed By: #### L 100.0100, L501.6710, L500.3400, L501.1105, L101.9900 #### [facility] [address] [facility] [place], [address] Vitamin D, 25-hydroxyOrdered By: Sara Granados on 08-31-2024 Vitamin D 25-Hydroxy 46.1 ng/mL 30-100 [facility] Comment on above: Vitamin D StatusDefi ciency: <20 ng/mL (50nmol/L)Insufficiency: 20-30 ng/mL (50-75 nmol/L)Sufficiency: 30-100 ng/mL (75-250 nmol/L)Toxicity: >100 ng/mL (>250 nmol/L) Extremity Upper without Cont raon 08-19-2024 Extremity Upper without Contra [facility] [address] [place], [place] [address] Extremity Upper without Contra MR#: [id number] Acct: [id number] Name: CARLOS WILDER Rep #: [id number] : 1955 F 69 From: Johnny boyer MD PCP: Dr. Joanne Arnold MD Status: REG CLI Study: Extremity Upper without Contra Date of Exam: 0 08/19/24 Exam# [id number] Ordering Dr: Daniela Carlos PROCEDURE: EXTREMITY UPPER WITHOUT CONTRA REASON FOR EXAM: Status post recent left shoulder replacement. Patient is now experiencing pain. TECHNIQUE: Multiple axial tomographic images of the left shoulder were obtained without intravenous contrast administration. Coronal and sagittal reconstruction was obtained as well. COMPARISON: None. FINDINGS: Bones: No evidence of fracture. Joints: The patient is status post left reverse shoulder replacement. There is good alignment. No evidence of subluxation or fracture. There is evidence of degenerative changes of the left acromioclavicular joint. Soft Tissues: Unremarkable. CT/Extremity Upper without Contra IMPRESSION: Status post left reverse shoulder replacement. There is good alignment. No acute abnormality is seen. One or more dose reduction techniques were used (e.g., Automated exposure control, adjustment of the mA and/or kV according to patient size, use of iterative reconstruction technique). Reading Location: [place] [address] CC: Dr. Joanne Arnold MD; LARRY [employer]: Signed Normal [facility] Absolute neutrophil countOrd ered By: Saradarwin Granados on 08-06-2024 Neutrophils (Bld) [#/Vol] 1.7 10*3/uL Low 2.0-7.7 [facility] Basophil percentageOrdered B y: Sara Granados on 08-06-2024 Basophils/100 WBC (Bld) 1.2 % High 0-1 [facility] Bilirubin directOrdered By: Sara Granados on 08-06-2024 Bilirubin.direct [Mass/Vol] 0.11 mg/dL 0.00-0.30 [facility] Bilirubin, totalOrdered By: Sara Granados on 08-06-2024 Bilirubin [Mass/Vol] 0.40 mg/dL 0.20-1.00 [facility] Comment on above: For patients on eltr ombopag therapy, use of Dimension [place] TBIL is not recommended. C-reactive protein measureme nt by high sensitivity methodOrdered By: Sara Granados on 08-06-2024 C-Reactive Protein Extended Range < 2.90 mg/L 0.0-3.0 [facility] Comment on above: C-Reactive Protein ( CRP) provides useful information for thediagnosis, therapy and monitoring of inflammatory processesand associated diseases. For the evaluation of Relative Riskfor Cardiovascular Disease, a High Sensitivity CRP (HSCRP)should be ordered. CBC W/Diff, Automatedon 02-0 -2024 Absolute Lymph 2.61 X10 3/uL Normal 0.83-4.51 [facility] Comment on above: Performed By: #### L 100.0100, L501.6710, L500.3400, L501.1105, L101.9900 #### [facility] [address] [place], [address] Absolute Neut 1.7 X10 3/uL Low 2.0-7.7 [facility] Comment on above: Performed By: #### L 100.0100, L501.6710, L500.3400, L501.1105, L101.9900 #### [facility] [address] [place], [address] Basophils/100 WBC (Bld) 1.2 % High 0-1 [facility] Comment on above: Performed By: #### L 100.0100, L501.6710, L500.3400, L501.1105, L101.9900 #### [facility] [address] [place], [address] Eosinophils/100 WBC (Bld) 2.7 % Normal 0-5 [facility] Comment on above: Performed By: #### L 100.0100, L501.6710, L500.3400, L501.1105, L101.9900 #### [facility] [address] [place], [address] Erythrocyte distribution width (RBC) [Ratio] 14.7 % High 11.6-14.6 [facility] Comment on above: Performed By: #### L 100.0100, L501.6710, L500.3400, L501.1105, L101.9900 #### [facility] [address] [place], [address] Hematocrit (Bld) [Volume fraction] 44.3 % Normal 37-47 [facility] Comment on above: Performed By: #### L 100.0100, L501.6710, L500.3400, L501.1105, L101.9900 #### [facility] [address] [place], [address] Hemoglobin (Bld) [Mass/Vol] 14.6 g/dL Normal 12.0-15.0 [facility] Comment on above: Performed By: #### L 100.0100, L501.6710, L500.3400, L501.1105, L101.9900 #### [facility] [address] [place], [address] IG% 0.000 Normal 0.0-0.9 [facility] Comment on above: Result Comment: IG% - Immature Granulocytes (promyelocytes, myelocytes and metamyelocytes) > 1% indicates that a LEFT SHIFT is Present. Performed By: #### L 100.0100, L501.6710, L500.3400, L501.1105, L101.9900 #### [facility] [address] [place], [address] Lymphocytes/100 WBC (Bld) 50.5 % High 19-41 [facility] Comment on above: Performed By: #### L 100.0100, L501.6710, L500.3400, L501.1105, L101.9900 #### [facility] [address] [place], [address] MCH (RBC) [Entitic mass] 30.2 pg Normal 27.0-32.0 [facility] Comment on above: Performed By: #### L 100.0100, L501.6710, L500.3400, L501.1105, L101.9900 #### [facility] [address] [place], [address] MCHC (RBC) [Mass/Vol] 33.0 g/dL Normal 32-36 [facility] Comment on above: Performed By: #### L 100.0100, L501.6710, L500.3400, L501.1105, L101.9900 #### [facility] [address] [place], [address] MCV (RBC) [Entitic vol] 91.5 fL Normal 81-99 [facility] Comment on above: Performed By: #### L 100.0100, L501.6710, L500.3400, L501.1105, L101.9900 #### [facility] [address] [place], [address] Monocytes/100 WBC (Bld) 12.2 % High 0-10 [facility] Comment on above: Performed By: #### L 100.0100, L501.6710, L500.3400, L501.1105, L101.9900 #### [facility] [address] [place], [address] Neutrophils/100 WBC (Bld) 33.4 % Low 47-70 [facility] Comment on above: Performed By: #### L 100.0100, L501.6710, L500.3400, L501.1105, L101.9900 #### [facility] [address] [place], [address] Nucleated RBC (Bld) [#/Vol] 0 10*3/uL Normal 0-5 [facility] Comment on above: Performed By: #### L 100.0100, L501.6710, L500.3400, L501.1105, L101.9900 #### [facility] [address] [place], [address] Platelet mean volume (Bld) [Entitic vol] 10.5 fL Normal 6.2-12.0 [facility] Comment on above: Performed By: #### L 100.0100, L501.6710, L500.3400, L501.1105, L101.9900 #### [facility] [address] [place], [address] Platelets (Bld) [#/Vol] 216 10*3/uL Normal 150-450 [facility] Comment on above: Performed By: #### L 100.0100, L501.6710, L500.3400, L501.1105, L101.9900 #### [facility] [address] [place], [address] RBC (Bld) [#/Vol] 4.84 10*6/uL Normal 4.2-5.4 [facility] Comment on above: Performed By: #### L 100.0100, L501.6710, L500.3400, L501.1105, L101.9900 #### [facility] [address] [place], [address] RDW SD 49.1 fl High 35.1-43.9 [facility] Comment on above: Performed By: #### L 100.0100, L501.6710, L500.3400, L501.1105, L101.9900 #### [facility] [address] [place], [address] WBC (Bld) [#/Vol] 5.2 10*3/uL Normal 4.4-11.0 [facility] Comment on above: Performed By: #### L 100.0100, L501.6710, L500.3400, L501.1105, L101.9900 #### [facility] [address] [place], [address] CRPon 08-06-2024 C-REACTIVE PROT < 2.90 Normal 0.0-3.0 [facility] Comment on above: Result Comment: C-Re active Protein (CRP) provides useful information for the diagnosis, therapy and monitoring of inflammatory processes and associated diseases. For the evaluation of Relative Risk for Cardiovascular Disease, a High Sensitivity CRP (HSCRP) should be ordered. Performed By: #### L 100.0100, L501.6710, L500.3400, L501.1105, L101.9900 #### [facility] [address] [place], [place], [address] Eosinophil percentageOrdered By: Sara Darwin on 08-06-2024 Eosinophils/100 WBC (Bld) 2.7 % 0-5 [facility] Erythrocyte Sed Rateon 08-06 SED RATE 1 mm/hr Normal 0-30 [facility] Comment on above: Performed By: #### L 100.0100, L501.6710, L500.3400, L501.1105, L101.9900 #### [facility] [address] [place], [place], [address] Erythrocyte distribution wid th ratioOrdered By: Saradarwin Granados on 08-06-2024 Erythrocyte distribution width (RBC) [Ratio] 14.7 % High 11.6-14.6 [facility] Erythrocyte distribution wid th standard deviationOrdered By: Sara Granados on 08-06-2024 Erythrocyte distribution width (RBC) [Entitic vol] 49.1 fL High 35.1-43.9 [facility] Erythrocyte sedimentation ra teOrdered By: Saradarwin Granados on 08-06-2024 ESR (Bld) [Velocity] 1 mm/h 0-30 [facility] Estimated glomerular filtrat ion rate (GFR) AmericanOrdered By: Sara Granados on 08-06-2024 Estimated GFR (MDRD) Amer 93 mL/min >60 [facility] Comment on above: GFR Calc Glomerular filtration rate ( GFR) estimationOrdered By: Sara Granados on 08-06-2024 Estimated GFR (MDRD) Non-Af Amer 77 mL/min >60 [facility] Comment on above: Non- GFR Calc Hematocrit Auto (Bld) [Volum e fraction]Ordered By: Sara Granados on 08-06-2024 Hematocrit (Bld) [Volume fraction] 44.3 % 37-47 [facility] Hemoglobin measurementOrdere d By: Sara Granados on 08-06-2024 Hemoglobin (Bld) [Mass/Vol] 14.6 g/dL 12.0-15.0 [facility] Immature granulocytes/100 WB C Auto (Bld)Ordered By: Sara Granados on 08-06-2024 Immature granulocytes/100 WBC (Bld) 0.000 % 0.0-0.9 [facility] Comment on above: IG% - Immature Granu locytes (promyelocytes, myelocytes and metamyelocytes) > 1% indicates that a LEFT SHIFT is Present. Laboratory - Chemistry and C hemistry - challengeOrdered By: Sara Granados on 08-06-2024 AST [Catalytic activity/Vol] 25 U/L 15-37 [facility] Liver Profileon 08-06-2024 Albumin [Mass/Vol] 3.9 g/dL Normal 3.2-5.0 [facility] Comment on above: Performed By: #### L 100.0100, L501.6710, L500.3400, L501.1105, L101.9900 #### [facility] [address] [place], [address] ALK P 59 U/L Normal 45-117 [facility] Comment on above: Performed By: #### L 100.0100, L501.6710, L500.3400, L501.1105, L101.9900 #### [facility] [address] [place], [address] ALT [Catalytic activity/Vol] 31 U/L Normal 13-56 [facility] Comment on above: Performed By: #### L 100.0100, L501.6710, L500.3400, L501.1105, L101.9900 #### [facility] [address] [place], [address] AST [Catalytic activity/Vol] 25 U/L Normal 15-37 [facility] Comment on above: Performed By: #### L 100.0100, L501.6710, L500.3400, L501.1105, L101.9900 #### [facility] [address] [place], [address] Bilirubin [Mass/Vol] 0.40 mg/dL Normal 0.20-1.00 [facility] Comment on above: Result Comment: For patients on eltrombopag therapy, use of Dimension [place] TBIL is not recommended. Performed By: #### L 100.0100, L501.6710, L500.3400, L501.1105, L101.9900 #### [facility] [address] [place], [address] Bilirubin.direct [Mass/Vol] 0.11 mg/dL Normal 0.00-0.30 [facility] Comment on above: Performed By: #### L 100.0100, L501.6710, L500.3400, L501.1105, L101.9900 #### [facility] [address] [place], [address] Globulin (S) [Mass/Vol] 3.4 g/dL Normal 2.2-4.2 [facility] Comment on above: Performed By: #### L 100.0100, L501.6710, L500.3400, L501.1105, L101.9900 #### [facility] [address] [place], [address] T PROT 7.3 g/dL Normal 6.4-8.2 [facility] Comment on above: Performed By: #### L 100.0100, L501.6710, L500.3400, L501.1105, L101.9900 #### [facility] [address] [place], [address] Lymphocytes Auto (Unsp spec) [#/Vol]Ordered By: Sara Granados on 08-06-2024 Lymphocytes (Bld) [#/Vol] 2.61 10*3/uL 0.83-4.51 [facility] Lymphocytes/100 WBC Auto (Un sp spec)Ordered By: Sara Granados on 08-06-2024 Lymphocytes/100 WBC (Bld) 50.5 % High 19-41 [facility] MCV (mean corpuscular volume ) determinationOrdered By: Sara Granados on 08-06-2024 MCV (RBC) [Entitic vol] 91.5 fL 81-99 [facility] Mean corpuscular hemoglobin (MCH) determinationOrdered By: Sara Granados on 08-06-2024 MCH (RBC) [Entitic mass] 30.2 pg 27.0-32.0 [facility] Mean corpuscular hemoglobin concentration (MCHC) determinationOrdered By: Sara Granados on 08-06-2024 MCHC (RBC) [Mass/Vol] 33.0 g/dL 32-36 [facility] Mean platelet volume determi nationOrdered By: Sara Granados on 08-06-2024 Platelet mean volume (Bld) [Entitic vol] 10.5 fL 6.2-12.0 [facility] Monocyte percentageOrdered B y: Sara Granados on 08-06-2024 Monocytes/100 WBC (Bld) 12.2 % High 0-10 [facility] Neutrophil percentageOrdered By: Sara Granados on 08-06-2024 Neutrophils/100 WBC (Bld) 33.4 % Low 47-70 [facility] Nucleated red blood cell per centageOrdered By: Sara Granados on 08-06-2024 Nucleated RBC/100 WBC (Bld) [Ratio] 0 % 0-5 [facility] Platelet countOrdered By: Joyce Granados on 08-06-2024 Platelets (Bld) [#/Vol] 216 10*3/uL 150-450 [facility] RBC Auto (Bld) [#/Vol]Ordere d By: Sara Granados on 08-06-2024 RBC (Bld) [#/Vol] 4.84 10*6/uL 4.2-5.4 [facility] Serum Creatinine AND GFRon 0 08-06-2024 Creatinine [Mass/Vol] 0.79 mg/dL Normal 0.55-1.02 [facility] Comment on above: Result Comment: The validity of the calculated GFR GFRAA in patients over 70 years has not been determined. Clinical correlation is essential. Performed By: #### L 100.0100, L501.6710, L500.3400, L501.1105, L101.9900 #### [facility] [address] [place], [place], [id number] (034) EST GFR - AA 93 mL/min Normal >60 [facility] Comment on above: Result Comment: Afri can Citizen [place] GFR Calc Performed By: #### L 100.0100, L501.6710, L500.3400, L501.1105, L101.9900 #### [facility] [address] [facility] [place], [place], [id number] (334) GFR/1.73 sq M.predicted among non-blacks MDRD (S/P/Bld) [Vol rate/Area] 77 mL/min/{1.73_m2} Normal >60 [facility] Comment on above: Result Comment: Non- GFR Calc Performed By: #### L 100.0100, L501.6710, L500.3400, L501.1105, L101.9900 #### [facility] [address] [facility] [facility] [place], [place], [id number] Serum globulin measurementOr dered By: Sara Granados on 08-06-2024 Globulin (S) [Mass/Vol] 3.4 g/dL 2.2-4.2 [facility] Serum or plasma alanine mathias otransferase (ALT) measurementOrdered By: Sara Granados on 08-06-2024 ALT [Catalytic activity/Vol] 31 U/L 13-56 [facility] Serum or plasma albumin jaycob urement (mass/volume)Ordered By: Sara Granados on 08-06-2024 Albumin [Mass/Vol] 3.9 g/dL 3.2-5.0 [facility] Serum or plasma alkaline jessica sphatase measurementOrdered By: Sara Granados on 08-06-2024 ALP [Catalytic activity/Vol] 59 U/L 45-117 [facility] Serum or plasma creatinine m easurement (mass/volume)Ordered By: Sara Granados on 08-06-2024 Creatinine [Mass/Vol] 0.79 mg/dL 0.55-1.02 [facility] Comment on above: The validity of the calculated GFR & GFRAA in patients over 70 years has not been determined. Clinical correlation is essential. Total proteinOrdered By: Andrea Granados on 08-06-2024 Protein [Mass/Vol] 7.3 g/dL 6.4-8.2 [facility] White blood cell (WBC) count Ordered By: Sara Granados on 08-06-2024 WBC (Bld) [#/Vol] 5.2 10*3/uL 4.4-11.0 [facility] Absolute neutrophil countOrd ered By: Sara Granados on 05-24-2024 Neutrophils (Bld) [#/Vol] 2.1 10*3/uL 2.0-7.7 [facility] Basophil percentageOrdered B y: Sara Granados on 05-24-2024 Basophils/100 WBC (Bld) 1.3 % High 0-1 [facility] Bilirubin directOrdered By: Sara Granados on 05-24-2024 Bilirubin.direct [Mass/Vol] 0.10 mg/dL 0.00-0.30 [facility] Bilirubin, totalOrdered By: Sara Granados on 05-24-2024 Bilirubin [Mass/Vol] 0.40 mg/dL 0.20-1.00 [facility] Comment on above: For patients on eltr ombopag therapy, use of Dimension [place] TBIL is not recommended. C-reactive protein measureme nt by high sensitivity methodOrdered By: Sara Granados on 05-24-2024 C-Reactive Protein Extended Range 3.44 mg/L High 0.0-3.0 [facility] Comment on above: C-Reactive Protein ( CRP) provides useful information for thediagnosis, therapy and monitoring of inflammatory processesand associated diseases. For the evaluation of Relative Riskfor Cardiovascular Disease, a High Sensitivity CRP (HSCRP)should be ordered. CBC W/Diff, Automatedon 05-01 Absolute Lymph 2.14 X10 3/uL Normal 0.83-4.51 [facility] Comment on above: Performed By: #### L 100.0100, L501.6710, L500.3400, L501.1105, L101.9900 #### [facility] [address] [place], [address] Absolute Neut 2.1 X10 3/uL Normal 2.0-7.7 [facility] Comment on above: Performed By: #### L 100.0100, L501.6710, L500.3400, L501.1105, L101.9900 #### [facility] [address] [place], [address] Basophils/100 WBC (Bld) 1.3 % High 0-1 [facility] Comment on above: Performed By: #### L 100.0100, L501.6710, L500.3400, L501.1105, L101.9900 #### [facility] [address] [place], [address] Eosinophils/100 WBC (Bld) 3.3 % Normal 0-5 [facility] Comment on above: Performed By: #### L 100.0100, L501.6710, L500.3400, L501.1105, L101.9900 #### [facility] [address] [place], [address] Erythrocyte distribution width (RBC) [Ratio] 14.2 % Normal 11.6-14.6 [facility] Comment on above: Performed By: #### L 100.0100, L501.6710, L500.3400, L501.1105, L101.9900 #### [facility] [address] [place], [address] Hematocrit (Bld) [Volume fraction] 39.5 % Normal 37-47 [facility] Comment on above: Performed By: #### L 100.0100, L501.6710, L500.3400, L501.1105, L101.9900 #### [facility] [address] [place], [address] Hemoglobin (Bld) [Mass/Vol] 13.1 g/dL Normal 12.0-15.0 [facility] Comment on above: Performed By: #### L 100.0100, L501.6710, L500.3400, L501.1105, L101.9900 #### [facility] [address] [place], [address] IG% 1.300 High 0.0-0.9 [facility] Comment on above: Result Comment: IG% - Immature Granulocytes (promyelocytes, myelocytes and metamyelocytes) > 1% indicates that a LEFT SHIFT is Present. Performed By: #### L 100.0100, L501.6710, L500.3400, L501.1105, L101.9900 #### [facility] [address] [place], [address] Lymphocytes/100 WBC (Bld) 39.3 % Normal 19-41 [facility] Comment on above: Performed By: #### L 100.0100, L501.6710, L500.3400, L501.1105, L101.9900 #### [facility] [address] [place], [address] MCH (RBC) [Entitic mass] 31.2 pg Normal 27.0-32.0 [facility] Comment on above: Performed By: #### L 100.0100, L501.6710, L500.3400, L501.1105, L101.9900 #### [facility] [address] [place], [address] MCHC (RBC) [Mass/Vol] 33.2 g/dL Normal 32-36 [facility] Comment on above: Performed By: #### L 100.0100, L501.6710, L500.3400, L501.1105, L101.9900 #### [facility] [address] [place], [address] MCV (RBC) [Entitic vol] 94.0 fL Normal 81-99 [facility] Comment on above: Performed By: #### L 100.0100, L501.6710, L500.3400, L501.1105, L101.9900 #### [facility] [address] [place], [address] Monocytes/100 WBC (Bld) 16.9 % High 0-10 [facility] Comment on above: Performed By: #### L 100.0100, L501.6710, L500.3400, L501.1105, L101.9900 #### [facility] [address] [place], [address] Neutrophils/100 WBC (Bld) 37.9 % Low 47-70 [facility] Comment on above: Performed By: #### L 100.0100, L501.6710, L500.3400, L501.1105, L101.9900 #### [facility] [address] [place], [address] Nucleated RBC (Bld) [#/Vol] 0 10*3/uL Normal 0-5 [facility] Comment on above: Performed By: #### L 100.0100, L501.6710, L500.3400, L501.1105, L101.9900 #### [facility] [address] [place], [address] Platelet mean volume (Bld) [Entitic vol] 10.1 fL Normal 6.2-12.0 [facility] Comment on above: Performed By: #### L 100.0100, L501.6710, L500.3400, L501.1105, L101.9900 #### [facility] [address] [place], [address] Platelets (Bld) [#/Vol] 207 10*3/uL Normal 150-450 [facility] Comment on above: Performed By: #### L 100.0100, L501.6710, L500.3400, L501.1105, L101.9900 #### [facility] [address] [place], [address] RBC (Bld) [#/Vol] 4.20 10*6/uL Normal 4.2-5.4 [facility] Comment on above: Performed By: #### L 100.0100, L501.6710, L500.3400, L501.1105, L101.9900 #### [facility] [address] [place], [address] RDW SD 48.6 fl High 35.1-43.9 [facility] Comment on above: Performed By: #### L 100.0100, L501.6710, L500.3400, L501.1105, L101.9900 #### [facility] [address] [place], [address] WBC (Bld) [#/Vol] 5.5 10*3/uL Normal 4.4-11.0 [facility] Comment on above: Performed By: #### L 100.0100, L501.6710, L500.3400, L501.1105, L101.9900 #### [facility] [address] [place], [address] CRPon 05-24-2024 C-REACTIVE PROT 3.44 mg/L High 0.0-3.0 [facility] Comment on above: Result Comment: C-Re active Protein (CRP) provides useful information for the diagnosis, therapy and monitoring of inflammatory processes and associated diseases. For the evaluation of Relative Risk for Cardiovascular Disease, a High Sensitivity CRP (HSCRP) should be ordered. Performed By: #### L 100.0100, L501.6710, L500.3400, L501.1105, L101.9900 #### [facility] [address] [place], [place], [address] Eosinophil percentageOrdered By: Sara Granados on 05-24-2024 Eosinophils/100 WBC (Bld) 3.3 % 0-5 [facility] Erythrocyte Sed Rateon 05-24 SED RATE 6 mm/hr Normal 0-30 [facility] Comment on above: Performed By: #### L 100.0100, L501.6710, L500.3400, L501.1105, L101.9900 #### [facility] [address] [place], [place], [address] Erythrocyte distribution wid th ratioOrdered By: Sara Granados on 05-24-2024 Erythrocyte distribution width (RBC) [Ratio] 14.2 % 11.6-14.6 [facility] Erythrocyte distribution wid th standard deviationOrdered By: Sara Granados on 05-24-2024 Erythrocyte distribution width (RBC) [Entitic vol] 48.6 fL High 35.1-43.9 [facility] Erythrocyte sedimentation ra teOrdered By: Sara Granados on 05-24-2024 ESR (Bld) [Velocity] 6 mm/h 0-30 [facility] Estimated glomerular filtrat ion rate (GFR) AmericanOrdered By: Sara Granados on 05-24-2024 Estimated GFR (MDRD) Amer 121 mL/min >60 [facility] Comment on above: GFR Calc Glomerular filtration rate ( GFR) estimationOrdered By: Sara Granados on 05-24-2024 Estimated GFR (MDRD) Non-Af Amer 100 mL/min >60 [facility] Comment on above: Non- GFR Calc Hematocrit Auto (Bld) [Volum e fraction]Ordered By: Sara Granados on 05-24-2024 Hematocrit (Bld) [Volume fraction] 39.5 % 37-47 [facility] Hemoglobin measurementOrdere d By: Sara Granados on 05-24-2024 Hemoglobin (Bld) [Mass/Vol] 13.1 g/dL 12.0-15.0 [facility] Immature granulocytes/100 WB C Auto (Bld)Ordered By: Sara Granados on 05-24-2024 Immature granulocytes/100 WBC (Bld) 1.300 % High 0.0-0.9 [facility] Comment on above: IG% - Immature Granu locytes (promyelocytes, myelocytes and metamyelocytes) > 1% indicates that a LEFT SHIFT is Present. Laboratory - Chemistry and C hemistry - challengeOrdered By: Sara Granados on 05-24-2024 AST [Catalytic activity/Vol] 25 U/L 15-37 [facility] Liver Profileon 05-24-2024 Albumin [Mass/Vol] 3.5 g/dL Normal 3.2-5.0 [facility] Comment on above: Performed By: #### L 100.0100, L501.6710, L500.3400, L501.1105, L101.9900 #### [facility] [address] [place], [address] ALK P 66 U/L Normal 45-117 [facility] Comment on above: Performed By: #### L 100.0100, L501.6710, L500.3400, L501.1105, L101.9900 #### [facility] [address] [place], [address] ALT [Catalytic activity/Vol] 26 U/L Normal 13-56 [facility] Comment on above: Performed By: #### L 100.0100, L501.6710, L500.3400, L501.1105, L101.9900 #### [facility] [address] [place], [address] AST [Catalytic activity/Vol] 25 U/L Normal 15-37 [facility] Comment on above: Performed By: #### L 100.0100, L501.6710, L500.3400, L501.1105, L101.9900 #### [facility] [address] [place], [address] Bilirubin [Mass/Vol] 0.40 mg/dL Normal 0.20-1.00 [facility] Comment on above: Result Comment: For patients on eltrombopag therapy, use of Dimension [place] TBIL is not recommended. Performed By: #### L 100.0100, L501.6710, L500.3400, L501.1105, L101.9900 #### [facility] [address] [place], [address] Bilirubin.direct [Mass/Vol] 0.10 mg/dL Normal 0.00-0.30 [facility] Comment on above: Performed By: #### L 100.0100, L501.6710, L500.3400, L501.1105, L101.9900 #### [facility] [address] [place], [address] Globulin (S) [Mass/Vol] 3.5 g/dL Normal 2.2-4.2 [facility] Comment on above: Performed By: #### L 100.0100, L501.6710, L500.3400, L501.1105, L101.9900 #### [facility] [address] [place], [address] T PROT 7.0 g/dL Normal 6.4-8.2 [facility] Comment on above: Performed By: #### L 100.0100, L501.6710, L500.3400, L501.1105, L101.9900 #### [facility] [address] [place], [address] Lymphocytes Auto (Unsp spec) [#/Vol]Ordered By: Sara Granados on 05-24-2024 Lymphocytes (Bld) [#/Vol] 2.14 10*3/uL 0.83-4.51 [facility] Lymphocytes/100 WBC Auto (Un sp spec)Ordered By: Sara Granados on 05-24-2024 Lymphocytes/100 WBC (Bld) 39.3 % 19-41 [facility] MCV (mean corpuscular volume ) determinationOrdered By: Sara Granados on 05-24-2024 MCV (RBC) [Entitic vol] 94.0 fL 81-99 [facility] Mean corpuscular hemoglobin (MCH) determinationOrdered By: Sara Granados on 05-24-2024 MCH (RBC) [Entitic mass] 31.2 pg 27.0-32.0 [facility] Mean corpuscular hemoglobin concentration (MCHC) determinationOrdered By: Sara Granados on 05-24-2024 MCHC (RBC) [Mass/Vol] 33.2 g/dL 32-36 [facility] Mean platelet volume determi nationOrdered By: Sara Granados on 05-24-2024 Platelet mean volume (Bld) [Entitic vol] 10.1 fL 6.2-12.0 [facility] Monocyte percentageOrdered B y: Sara Granados on 05-24-2024 Monocytes/100 WBC (Bld) 16.9 % High 0-10 [facility] Neutrophil percentageOrdered By: Sara Granados on 05-24-2024 Neutrophils/100 WBC (Bld) 37.9 % Low 47-70 [facility] Nucleated red blood cell per centageOrdered By: Sara Granados on 05-24-2024 Nucleated RBC/100 WBC (Bld) [Ratio] 0 % 0-5 [facility] Platelet countOrdered By: Joyce Granados on 05-24-2024 Platelets (Bld) [#/Vol] 207 10*3/uL 150-450 [facility] RBC Auto (Bld) [#/Vol]Ordere d By: Sara Granados on 05-24-2024 RBC (Bld) [#/Vol] 4.20 10*6/uL 4.2-5.4 [facility] Serum Creatinine AND GFRon 07-24-2023 Creatinine [Mass/Vol] 0.63 mg/dL Normal 0.55-1.02 [facility] Comment on above: Result Comment: The validity of the calculated GFR GFRAA in patients over 70 years has not been determined. Clinical correlation is essential. Performed By: #### L 100.0100, L501.6710, L500.3400, L501.1105, L101.9900 #### [facility] [address] [place], [address] EST GFR - AA 121 mL/min Normal >60 [facility] Comment on above: Result Comment: Afri can Citizen Of [place] GFR Calc Performed By: #### L 100.0100, L501.6710, L500.3400, L501.1105, L101.9900 #### [facility] [address] [place], [address] GFR/1.73 sq M.predicted among non-blacks MDRD (S/P/Bld) [Vol rate/Area] 100 mL/min/{1.73_m2} Normal >60 [facility] Comment on above: Result Comment: Non- GFR Calc Performed By: #### L 100.0100, L501.6710, L500.3400, L501.1105, L101.9900 #### [facility] [address] [place], [place], [address] Serum globulin measurementOr dered By: Sara Granados on 05-24-2024 Globulin (S) [Mass/Vol] 3.5 g/dL 2.2-4.2 [facility] Serum or plasma alanine mathias otransferase (ALT) measurementOrdered By: Sara Granados on 05-24-2024 ALT [Catalytic activity/Vol] 26 U/L 13-56 [facility] Serum or plasma albumin jaycob urement (mass/volume)Ordered By: Sara Granados on 05-24-2024 Albumin [Mass/Vol] 3.5 g/dL 3.2-5.0 [facility] Serum or plasma alkaline jessica sphatase measurementOrdered By: Sara Granados on 05-24-2024 ALP [Catalytic activity/Vol] 66 U/L 45-117 [facility] Serum or plasma creatinine m easurement (mass/volume)Ordered By: Sara Granados on 05-24-2024 Creatinine [Mass/Vol] 0.63 mg/dL 0.55-1.02 [facility] Comment on above: The validity of the calculated GFR & GFRAA in patients over 70 years has not been determined. Clinical correlation is essential. Total proteinOrdered By: Andrea Granados on 05-24-2024 Protein [Mass/Vol] 7.0 g/dL 6.4-8.2 [facility] White blood cell (WBC) count Ordered By: Sara Granados on 05-24-2024 WBC (Bld) [#/Vol] 5.5 10*3/uL 4.4-11.0 [facility] Basic Metabolic Profile (BMP )on 04-16-2024 BUN Normal - [facility] Comment on above: Result Comment: Canc elled via OM: Order cancelled - Patient discharged Performed By: #### L 100.0100, L501.6710, L500.3400, L501.1105, L101.9900 #### [facility] [address] [place], [address] BUN/CRE Normal - [facility] Comment on above: Result Comment: Canc elled via OM: Order cancelled - Patient discharged Performed By: #### L 100.0100, L501.6710, L500.3400, L501.1105, L101.9900 #### [facility] [address] [place], [address] CA,Total Normal 8.5-10.1 [facility] Comment on above: Result Comment: Canc elled via OM: Order cancelled - Patient discharged Performed By: #### L 100.0100, L501.6710, L500.3400, L501.1105, L101.9900 #### [facility] [address] [place], [address] CL Normal 98-107 [facility] Comment on above: Result Comment: Canc elled via OM: Order cancelled - Patient discharged Performed By: #### L 100.0100, L501.6710, L500.3400, L501.1105, L101.9900 #### [facility] [address] [place], [address] CO2 Normal 21.0-32.0 [facility] Comment on above: Result Comment: Canc elled via OM: Order cancelled - Patient discharged Performed By: #### L 100.0100, L501.6710, L500.3400, L501.1105, L101.9900 #### [facility] [address] [place], [address] CREAT,SERUM Normal 0.55-1.02 [facility] Comment on above: Result Comment: Canc elled via OM: Order cancelled - Patient discharged Performed By: #### L 100.0100, L501.6710, L500.3400, L501.1105, L101.9900 #### [facility] [address] [place], [address] EST GFR Normal >60 [facility] Comment on above: Result Comment: Canc elled via OM: Order cancelled - Patient discharged Performed By: #### L 100.0100, L501.6710, L500.3400, L501.1105, L101.9900 #### [facility] [address] [place], [address] EST GFR - AA Normal >60 [facility] Comment on above: Result Comment: Canc elled via OM: Order cancelled - Patient discharged Performed By: #### L 100.0100, L501.6710, L500.3400, L501.1105, L101.9900 #### [facility] [address] [place], [address] GAP Normal 5-15 [facility] Comment on above: Result Comment: Canc elled via OM: Order cancelled - Patient discharged Performed By: #### L 100.0100, L501.6710, L500.3400, L501.1105, L101.9900 #### [facility] [address] [place], [address] GLU Normal 74-106 [facility] Comment on above: Result Comment: Canc elled via OM: Order cancelled - Patient discharged Performed By: #### L 100.0100, L501.6710, L500.3400, L501.1105, L101.9900 #### [facility] [address] [place], [address] Potassium Normal 3.5-5.1 [facility] Comment on above: Result Comment: Canc elled via OM: Order cancelled - Patient discharged Performed By: #### L 100.0100, L501.6710, L500.3400, L501.1105, L101.9900 #### [facility] [address] [place], [address] Basic Metabolic Profile (BMP) Normal 136-145 [facility] Comment on above: Result Comment: Canc elled via OM: Order cancelled - Patient discharged Performed By: #### L 100.0100, L501.6710, L500.3400, L501.1105, L101.9900 #### [facility] [address] [place], [address] CBC-Complete Blood Cnt No Di ffon 04-16-2024 HCT Normal 37-47 [facility] Comment on above: Result Comment: Canc elled via OM: Order cancelled - Patient discharged Performed By: #### L 100.0100, L501.6710, L500.3400, L501.1105, L101.9900 #### [facility] [address] [place], [address] HGB Normal 12.0-15.0 [facility] Comment on above: Result Comment: Canc elled via OM: Order cancelled - Patient discharged Performed By: #### L 100.0100, L501.6710, L500.3400, L501.1105, L101.9900 #### [facility] [address] [place], [address] MCH Normal 27.0-32.0 [facility] Comment on above: Result Comment: Canc elled via OM: Order cancelled - Patient discharged Performed By: #### L 100.0100, L501.6710, L500.3400, L501.1105, L101.9900 #### [facility] [address] [place], [address] MCHC Normal 32-36 [facility] Comment on above: Result Comment: Canc elled via OM: Order cancelled - Patient discharged Performed By: #### L 100.0100, L501.6710, L500.3400, L501.1105, L101.9900 #### [facility] [address] [place], [address] MCV Normal 81-99 [facility] Comment on above: Result Comment: Canc elled via OM: Order cancelled - Patient discharged Performed By: #### L 100.0100, L501.6710, L500.3400, L501.1105, L101.9900 #### [facility] [address] [place], [address] PLT Normal 150-450 [facility] Comment on above: Result Comment: Canc elled via OM: Order cancelled - Patient discharged Performed By: #### L 100.0100, L501.6710, L500.3400, L501.1105, L101.9900 #### [facility] [address] [place], [address] RBC Normal 4.2-5.4 [facility] Comment on above: Result Comment: Canc elled via OM: Order cancelled - Patient discharged Performed By: #### L 100.0100, L501.6710, L500.3400, L501.1105, L101.9900 #### [facility] [address] [place], [address] RDW CV Normal 11.6-14.6 [facility] Comment on above: Result Comment: Canc elled via OM: Order cancelled - Patient discharged Performed By: #### L 100.0100, L501.6710, L500.3400, L501.1105, L101.9900 #### [facility] [address] [place], [address] RDW SD Normal 35.1-43.9 [facility] Comment on above: Result Comment: Canc elled via OM: Order cancelled - Patient discharged Performed By: #### L 100.0100, L501.6710, L500.3400, L501.1105, L101.9900 #### [facility] [address] [place], [address] WBC Normal 4.4-11.0 [facility] Comment on above: Result Comment: Canc elled via OM: Order cancelled - Patient discharged Performed By: #### L 100.0100, L501.6710, L500.3400, L501.1105, L101.9900 #### [facility] [address] [place], [address] Bedside Glucoseon 04-15-2024 FINGERSTICK GLU 105 mg/dL Normal 74-106 [facility] Comment on above: Result Comment: PEE GEMENT OF PATIENT CARE PER NURSING PROTOCOL Performed By: #### L 100.0100, L501.6710, L500.3400, L501.1105, L101.9900 #### [facility] [address] [place], [address] FINGERSTICK GLU 95 mg/dL Normal 74-106 [facility] Comment on above: Result Comment: PEE GEMENT OF PATIENT CARE PER NURSING PROTOCOL Performed By: #### L 100.0100, L501.6710, L500.3400, L501.1105, L101.9900 #### [facility] [address] [place], [address] Decalcification bone/plaqueo n 04-15-2024 Decalcification bone/plaque -------- Patient Age/Sex Location Account Attending Physician -------- CARLOS WILDER 69/F [facility] [phone]. Jorge Gomez DO -------- Specimen: [id number] Received: 04/15/24 Status: LUX Cats[place]on Num: [id number] Spec Type: HUMERUS Subm Dr: DO CHERELLE Hill OPERATION: Total shoulder replacement PRE-OP DIAGNOSIS: Severe glnohumeral osteoarthritis, possible avn, arthritis TISSUE SUBMITTED: Left humeral head -------- MICROSCOPIC DIAGNOSIS Bone and tissue of left shoulder, total shoulder resection: Severe degenerative joint disease. Mild synovial hyperplasia. AM: 04/21/2024 MICROSCOPIC DESCRIPTION Slides are reviewed. GROSS DESCRIPTION Received is one container labeled with the patient's name and designated bone and soft tissue. The specimen consists of a humeral head measuring 5.0 x 5.0 x 2.5 cm. The articular surface shows areas of erosion, eburnation and osteophyte formation. Also received are two pieces of soft tissue mixed with fibrocartilaginous tissue measuring in aggregate 4.0 x 2.5 x 1.0 cm. Screen Roller sections are submitted in two cassettes as follows: 1 - soft tissue, 2 - humeral head after decalcification. / SJ: TC:5 04/15/2024 [facility]: [id number], [id number] -------- Patient Age/Sex Location Account Attending Physician -------- CARLOS WILDER 69/F [facility] [phone] Dr. Jorge Gomez, -------- Signed (signature on file) Dr. Elton Diaz DO 04/21/24 1138 -------- Normal [facility] Comment on above: Performed By: #### L 100.0100, L501.6710, L500.3400, L501.1105, L101.9900 #### [facility] [address] [place], [address] MR/POSTOP.Marcos 04-15-2024 MR/POSTOP.[facility] Medical Records Department [address] [place] [address] Anesthesia Postop Eval I 04/15/24 0945 MR#: [id number] Acct: [id number] Name: CARLOS WILDER Rep #: [id number] : 1955 69 From: lAbin Yang MD PCP: Dr. Joanne Arnold MD Status:REG SDC Y Race: C Location: [place] [address] Anesthesia: Postop Eval I Current Vital Signs Temperature: 98 F Pulse Rate: 50 Blood Pressure: 130/62 Respiratory Rate: 16 Pulse Ox: 95 Assessment Airway patent: Yes Spontaneous unlabored respirations: Yes nausea: No Vomiting: No Anesthesia Complication: No Fluid Hydration Crystalloid volume administer (ml): 10 Total IV fluid infused: 10 Progress Note Anesthesia document: Postop Eval 1 completed: Yes 04/15/24 1020 Date Albin Yang MD Cosigner Signature: Date CC: Signed Normal [facility] [id number] 04-15-2024 MR/POSTOPAN2 [facility] Medical Records Department [address] [address] Anesthesia Postop Eval II 04/15/24 1010 MR#: [id number] Acct: [id number] Name: CARLOS WILDER KVNG Rep #: [id number] : 1955 69 From: Albin Yang MD PCP: Dr. Joanne Arnold MD Status:REG SDC Y Race: C Location: [place] [address] Anesthesia Postop Eval I Sum Anesthesia Postop Eval I Summary Anesthesia Postop Eval I Summary: Anesthesia Postop Eval I: Assessment Summary Airway patent Spontaneous unlabored respirations Mental status nausea Vomiting Anesthesia Postop Eval I: Fluid Summary Crystalloid volume administer (ml) Colloids volume administered ( ml) Blood Product volume administered (ml) Total IV fluid infused Anesthesia Postop Eval I: Summary Notes Anesthesia Complication Anesthesia Complication Comment: Post-operative progress note Anesthesia: Postop Eval II Evaluation Mental status: Awake Pain Level: 0 nausea: No Vomiting: No 04/15/24 1010 Date [facility] Date CC: Signed Normal [facility] Operative Reporton Operative Report [facility] Medical Records Department [address] [place] [address] Operative Report 04/15/24 0924 MR#: [id number] Acct: [id number] Name: SVENTHERESACARLOS Rep #: [id number] : 1955 69 From: Jorge Gomez DO PCP: Dr. Joanne Arnold MD Status:REG [facility] [place] Location: [place] [address]-1 Report of Operation Date of Procedure: 04/15/24 Description of Surgical Findings:: Preoperative diagnosis: 1. Left shoulder osteoarthritis 2. Left humeral head avascular necrosis Postoperative diagnosis: 1. Left shoulder osteoarthritis 2. Left humeral head avascular necrosis Procedure: Left reverse total shoulder arthroplasty Surgeon: Jorge Gomez DO Certified Coder: Daniela Carlos PA-C Anesthesia: General endotracheal Operation Shift Supervisor: Agustín Toro CRNA Complications: None apparent Drains: None Estimated blood loss: 100 cc Urinary output: None IV fluids: 1100 cc crystalloid Specimens: Left humeral head Surgical implants: Tornier Aequalis PerFORM+ reversed baseplate 25mm diameter full wedge, standard glenosphere cobalt chrome 36 mm diameter, Tornier perform inlay stem size #2, + 0 mm retentive polyethylene insert, short central post and peripheral screws x4. Surgical indications: This is a 69-year-old female with persistent left shoulder pain. She did have worsening symptoms over the last several months. X-rays and CT scan demonstrated osteoarthritic changes as well as avascular necrosis changes in the humeral head. Patient has a history of rheumatoid arthritis and use of chronic steroids. I did have concerned about her rotator cuff competency as well. I recommended a reverse shoulder arthroplasty. We obtained a preoperative CT scan for planning. The risks, benefits, alternatives the procedure was reviewed with the patient and he agreed to proceed. Risks included but were not limited to bleeding, infection, instability, loss of life or limb, risk of anesthesia, neurovascular injury, persistent pain, stiffness, prolonged immobilization, need for additional surgery, loosening of orthopedic hardware. She expressed understanding and wished to proceed with surgery. Surgical details: Patient arrived to [facility] morning of the procedure and was greeted by the same day surgery staff. Prior to her procedure, I greeted the patient in the preoperative holding area I identified the patient by name, record number, and date of . Informed consent was confirmed. The operative extremity was marked. All questions were answered to patient satisfaction. An interscalene block was administered prior to procedure by anesthesia staff for postoperative and intraoperative analgesia. At time of her procedure, patient was brought to the operative suite and positioned supine on a standard table with a beachchair attachment. General anesthesia was induced after all bony prominences were well-padded. Endotracheal tube was placed. After adequate anesthesia and securing the tube, we prepared the patient to be positioned in the beachchair position. A well-padded miller head was applied. The nonoperative extremity was placed in a well arm ricardo. He was then brought into the beachchair position after we confirmed an appropriate blood pressure. We then spun the bed 45 degrees. The operative extremity was then prepared. In the butterfly wing of the bed was removed and a well-padded torso strap was applied to secure the patient to the bed. The operative extremity was now free. We then prepped and draped the right upper extremity in normal, sterile orthopedic fashion. We then performed a timeout with all parties in attendance in agreement with the side, site, and operation be performed. 2 g Ancef was administered prior to incision by anesthesia staff, as well as 1 g TXA IV. No concerns were voiced and we elected to proceed. I first marked a standard deltopectoral incision just lateral to the coracoid process in line with the long axis of the humerus. Skin was sharply incised with 10 blade scalpel. I then dissected bluntly through the subcutaneous layers and found the fat stripe between the deltoid and pectoralis major. The cephalic vein was then identified and protected. It was retracted laterally with the deltoid. I then bluntly dissected underneath the deltoid with a Hanna elevator. Maria Teresa retractor was placed. The upper 1 cm of the pectoralis major was released. I then identified the long head of the biceps tendon in the intertubercular groove. This was tenodesed in situ with #2 FiberWire. I then amputated the biceps proximal to the tenodesis site and followed the tendon to the supraglenoid tubercle where it was amputated. This identified the lesser and greater tuberosities. The supraspinatus was completely torn and retracted with an exposed greater tuberosity. I then performed a subscapularis peel while rotapeter (more content not included)... Normal [facility] Shoulder min 2 Viewson 04-15 Shoulder min 2 Views [facility] Imaging Services [address] [place], [place] [address] Shoulder min 2 Views MR#: [id number] Acct: [id number] Name: CARLOS WILDER Rep #: [id number] : 1955 F 69 From: Hugo Seals MD PCP: Dr. Joanne Arnold MD Status: [facility] Study: Shoulder min 2 Views Date of Exam: 04/15/24 Exam# [id number] Ordering Dr: Jorge Gomez DO [id number] STUDY: X-RAY - LEFT SHOULDER REASON FOR EXAM: Female, 69 years old. Post op -- AP and Lateral X-Ray of operative shoulder in PACU. TECHNIQUE: 2 views of the left shoulder. COMPARISON: Left shoulder radiographs dated 12/04/2007. FINDINGS: There is a new postoperative changes related to reverse left shoulder arthroplasty. There is no periprosthetic fracture. There is surrounding soft tissue gas, compatible with recent surgery. There is mild acromioclavicular arthrosis. Normal acromion. The soft tissue structures are otherwise unremarkable. Normal visualized pulmonary apex. There is a cardiac monitoring lead overlying the left upper chest. RAD/Shoulder min 2 Views IMPRESSION: New postoperative changes related to reverse left shoulder arthroplasty. Electronically Signed: Hugo Seals MD at 10:36 EDT , CC: Dr. Joanne Arnold MD; Dr. Jorge Gomez DO Small Products Assembler: Signed Normal [facility] CBC W/Diff, Automatedon 10-0 Absolute Lymph 1.96 X10 3/uL Normal 0.83-4.51 [facility] Comment on above: Performed By: #### L 100.0100, L501.6710, L500.3400, L501.1105, L101.9900 #### [facility] [address] [place], [address] Absolute Neut 1.6 X10 3/uL Low 2.0-7.7 [facility] Comment on above: Performed By: #### L 100.0100, L501.6710, L500.3400, L501.1105, L101.9900 #### [facility] [address] [place], [address] Basophils/100 WBC (Bld) 1.5 % High 0-1 [facility] Comment on above: Performed By: #### L 100.0100, L501.6710, L500.3400, L501.1105, L101.9900 #### [facility] [address] [place], [address] Eosinophils/100 WBC (Bld) 3.6 % Normal 0-5 [facility] Comment on above: Performed By: #### L 100.0100, L501.6710, L500.3400, L501.1105, L101.9900 #### [facility] [address] [place], [address] Erythrocyte distribution width (RBC) [Ratio] 13.7 % Normal 11.6-14.6 [facility] Comment on above: Performed By: #### L 100.0100, L501.6710, L500.3400, L501.1105, L101.9900 #### [facility] [address] [place], [address] Hematocrit (Bld) [Volume fraction] 41.2 % Normal 37-47 [facility] Comment on above: Performed By: #### L 100.0100, L501.6710, L500.3400, L501.1105, L101.9900 #### [facility] [address] [place], [address] Hemoglobin (Bld) [Mass/Vol] 13.4 g/dL Normal 12.0-15.0 [facility] Comment on above: Performed By: #### L 100.0100, L501.6710, L500.3400, L501.1105, L101.9900 #### [facility] [address] [place], [address] IG% 0.200 Normal 0.0-0.9 [facility] Comment on above: Result Comment: IG% - Immature Granulocytes (promyelocytes, myelocytes and metamyelocytes) > 1% indicates that a LEFT SHIFT is Present. Performed By: #### L 100.0100, L501.6710, L500.3400, L501.1105, L101.9900 #### [facility] [address] [place], [address] Lymphocytes/100 WBC (Bld) 42.1 % High 19-41 [facility] Comment on above: Performed By: #### L 100.0100, L501.6710, L500.3400, L501.1105, L101.9900 #### [facility] [address] [place], [address] MCH (RBC) [Entitic mass] 30.5 pg Normal 27.0-32.0 [facility] Comment on above: Performed By: #### L 100.0100, L501.6710, L500.3400, L501.1105, L101.9900 #### [facility] [address] [place], [address] MCHC (RBC) [Mass/Vol] 32.5 g/dL Normal 32-36 [facility] Comment on above: Performed By: #### L 100.0100, L501.6710, L500.3400, L501.1105, L101.9900 #### [facility] [address] [place], [address] MCV (RBC) [Entitic vol] 93.8 fL Normal 81-99 [facility] Comment on above: Performed By: #### L 100.0100, L501.6710, L500.3400, L501.1105, L101.9900 #### [facility] [address] [place], [address] Monocytes/100 WBC (Bld) 18.2 % High 0-10 [facility] Comment on above: Performed By: #### L 100.0100, L501.6710, L500.3400, L501.1105, L101.9900 #### [facility] [address] [place], [address] Neutrophils/100 WBC (Bld) 34.4 % Low 47-70 [facility] Comment on above: Performed By: #### L 100.0100, L501.6710, L500.3400, L501.1105, L101.9900 #### [facility] [address] [place], [address] Nucleated RBC (Bld) [#/Vol] 0 10*3/uL Normal 0-5 [facility] Comment on above: Performed By: #### L 100.0100, L501.6710, L500.3400, L501.1105, L101.9900 #### [facility] [address] [place], [address] Platelet mean volume (Bld) [Entitic vol] 10.2 fL Normal 6.2-12.0 [facility] Comment on above: Performed By: #### L 100.0100, L501.6710, L500.3400, L501.1105, L101.9900 #### [facility] [address] [place], [address] Platelets (Bld) [#/Vol] 247 10*3/uL Normal 150-450 [facility] Comment on above: Performed By: #### L 100.0100, L501.6710, L500.3400, L501.1105, L101.9900 #### [facility] [address] [place], [address] RBC (Bld) [#/Vol] 4.39 10*6/uL Normal 4.2-5.4 [facility] Comment on above: Performed By: #### L 100.0100, L501.6710, L500.3400, L501.1105, L101.9900 #### [facility] [address] [place], [address] RDW SD 46.9 fl High 35.1-43.9 [facility] Comment on above: Performed By: #### L 100.0100, L501.6710, L500.3400, L501.1105, L101.9900 #### [facility] [address] [place], [address] WBC (Bld) [#/Vol] 4.7 10*3/uL Normal 4.4-11.0 [facility] Comment on above: Performed By: #### L 100.0100, L501.6710, L500.3400, L501.1105, L101.9900 #### [facility] [address] [place], [address] CRPon 04-02-2024 C-REACTIVE PROT < 2.90 Normal 0.0-3.0 [facility] Comment on above: Result Comment: C-Re active Protein (CRP) provides useful information for the diagnosis, therapy and monitoring of inflammatory processes and associated diseases. For the evaluation of Relative Risk for Cardiovascular Disease, a High Sensitivity CRP (HSCRP) should be ordered. Performed By: #### L 100.0100, L501.6710, L500.3400, L501.1105, L101.9900 #### [facility] [address] [place], [address] Erythrocyte Sed Rateon 04-02 SED RATE 1 mm/hr Normal 0-30 [facility] Comment on above: Performed By: #### L 100.0100, L501.6710, L500.3400, L501.1105, L101.9900 #### [facility] [address] [place], [address] MRSA/SAID NASAL SCREENon MRSA+SAID SCRN Reason for Exam: PREOP MRSA MRSA Negative S. AUREUS S. aureus Negative Normal [facility] Comment on above: Performed By: #### L 100.0100, L501.6710, L500.3400, L501.1105, L101.9900 #### [facility] [address] [facility] [address] Albumin, Serumon 03-19-2024 Albumin [Mass/Vol] 3.5 g/dL Normal 3.2-5.0 [facility] Comment on above: Performed By: #### L 100.0100, L501.6710, L500.3400, L501.1105, L101.9900 #### [facility] [address] [facility] [address] Basic Metabolic Profile (BMP )on 03-19-2024 BUN/CRE 23.8 RATIO High 04-18 [facility] Comment on above: Performed By: #### L 100.0100, L501.6710, L500.3400, L501.1105, L101.9900 #### [facility] [address] [place], [address] CA,Total 9.1 mg/dL Normal 8.5-10.1 [facility] Comment on above: Performed By: #### L 100.0100, L501.6710, L500.3400, L501.1105, L101.9900 #### [facility] [address] [place], [address] Chloride [Moles/Vol] 110 mmol/L High 98-107 [facility] Comment on above: Performed By: #### L 100.0100, L501.6710, L500.3400, L501.1105, L101.9900 #### [facility] [address] [place], [address] CO2 [Moles/Vol] 28.0 mmol/L Normal 21.0-32.0 [facility] Comment on above: Performed By: #### L 100.0100, L501.6710, L500.3400, L501.1105, L101.9900 #### [facility] [address] [place], [address] Creatinine [Mass/Vol] 0.72 mg/dL Normal 0.55-1.02 [facility] Comment on above: Result Comment: The validity of the calculated GFR GFRAA in patients over 70 years has not been determined. Clinical correlation is essential. Performed By: #### L 100.0100, L501.6710, L500.3400, L501.1105, L101.9900 #### [facility] [address] [place], [address] EST GFR - AA 104 mL/min Normal >60 [facility] Comment on above: Result Comment: Afri can Citizen Of [place] GFR Calc Performed By: #### L 100.0100, L501.6710, L500.3400, L501.1105, L101.9900 #### [facility] [address] [place], [address] GAP 6 Normal 5-15 [facility] Comment on above: Performed By: #### L 100.0100, L501.6710, L500.3400, L501.1105, L101.9900 #### [facility] [address] [place], [address] GFR/1.73 sq M.predicted among non-blacks MDRD (S/P/Bld) [Vol rate/Area] 86 mL/min/{1.73_m2} Normal >60 [facility] Comment on above: Result Comment: Non- GFR Calc Performed By: #### L 100.0100, L501.6710, L500.3400, L501.1105, L101.9900 #### [facility] [address] [place], [address] Glucose [Mass/Vol] 87 mg/dL Normal 74-106 [facility] Comment on above: Performed By: #### L 100.0100, L501.6710, L500.3400, L501.1105, L101.9900 #### [facility] [address] [place], [address] Potassium [Moles/Vol] 4.0 mmol/L Normal 3.5-5.1 [facility] Comment on above: Performed By: #### L 100.0100, L501.6710, L500.3400, L501.1105, L101.9900 #### [facility] [address] [place], [address] Sodium [Moles/Vol] 144 mmol/L Normal 136-145 [facility] Comment on above: Performed By: #### L 100.0100, L501.6710, L500.3400, L501.1105, L101.9900 #### [facility] [address] [place], [address] Urea nitrogen [Mass/Vol] 17 mg/dL Normal 7-18 [facility] Comment on above: Performed By: #### L 100.0100, L501.6710, L500.3400, L501.1105, L101.9900 #### [facility] [address] [place], [address] CBC W/Diff, Automatedon 09-2 0-2023 Absolute Lymph 1.73 X10 3/uL Normal 0.83-4.51 [facility] Comment on above: Performed By: #### L 100.0100, L501.6710, L500.3400, L501.1105, L101.9900 #### [facility] [address] [place], [address] Absolute Neut 1.7 X10 3/uL Low 2.0-7.7 [facility] Comment on above: Performed By: #### L 100.0100, L501.6710, L500.3400, L501.1105, L101.9900 #### [facility] [address] [place], [address] Basophils/100 WBC (Bld) 1.5 % High 0-1 [facility] Comment on above: Performed By: #### L 100.0100, L501.6710, L500.3400, L501.1105, L101.9900 #### [facility] [address] [place], [address] Eosinophils/100 WBC (Bld) 2.2 % Normal 0-5 [facility] Comment on above: Performed By: #### L 100.0100, L501.6710, L500.3400, L501.1105, L101.9900 #### [facility] [address] [place], [address] Erythrocyte distribution width (RBC) [Ratio] 13.7 % Normal 11.6-14.6 [facility] Comment on above: Performed By: #### L 100.0100, L501.6710, L500.3400, L501.1105, L101.9900 #### [facility] [address] [place], [address] Hematocrit (Bld) [Volume fraction] 40.5 % Normal 37-47 [facility] Comment on above: Performed By: #### L 100.0100, L501.6710, L500.3400, L501.1105, L101.9900 #### [facility] [address] [place], [address] Hemoglobin (Bld) [Mass/Vol] 13.3 g/dL Normal 12.0-15.0 [facility] Comment on above: Performed By: #### L 100.0100, L501.6710, L500.3400, L501.1105, L101.9900 #### [facility] [address] [place], [address] IG% 0.200 Normal 0.0-0.9 [facility] Comment on above: Result Comment: IG% - Immature Granulocytes (promyelocytes, myelocytes and metamyelocytes) > 1% indicates that a LEFT SHIFT is Present. Performed By: #### L 100.0100, L501.6710, L500.3400, L501.1105, L101.9900 #### [facility] [address] [place], [address] Lymphocytes/100 WBC (Bld) 42.4 % High 19-41 [facility] Comment on above: Performed By: #### L 100.0100, L501.6710, L500.3400, L501.1105, L101.9900 #### [facility] [address] [place], [address] MCH (RBC) [Entitic mass] 31.2 pg Normal 27.0-32.0 [facility] Comment on above: Performed By: #### L 100.0100, L501.6710, L500.3400, L501.1105, L101.9900 #### [facility] [address] [place], [address] MCHC (RBC) [Mass/Vol] 32.8 g/dL Normal 32-36 [facility] Comment on above: Performed By: #### L 100.0100, L501.6710, L500.3400, L501.1105, L101.9900 #### [facility] [address] [place], [address] MCV (RBC) [Entitic vol] 95.1 fL Normal 81-99 [facility] Comment on above: Performed By: #### L 100.0100, L501.6710, L500.3400, L501.1105, L101.9900 #### [facility] [address] [place], [address] Monocytes/100 WBC (Bld) 13.2 % High 0-10 [facility] Comment on above: Performed By: #### L 100.0100, L501.6710, L500.3400, L501.1105, L101.9900 #### [facility] [address] [place], [address] Neutrophils/100 WBC (Bld) 40.5 % Low 47-70 [facility] Comment on above: Performed By: #### L 100.0100, L501.6710, L500.3400, L501.1105, L101.9900 #### [facility] [address] [place], [address] Nucleated RBC (Bld) [#/Vol] 0 10*3/uL Normal 0-5 [facility] Comment on above: Performed By: #### L 100.0100, L501.6710, L500.3400, L501.1105, L101.9900 #### [facility] [address] [place], [address] Platelet mean volume (Bld) [Entitic vol] 9.6 fL Normal 6.2-12.0 [facility] Comment on above: Performed By: #### L 100.0100, L501.6710, L500.3400, L501.1105, L101.9900 #### [facility] [address] [place], [address] Platelets (Bld) [#/Vol] 214 10*3/uL Normal 150-450 [facility] Comment on above: Performed By: #### L 100.0100, L501.6710, L500.3400, L501.1105, L101.9900 #### [facility] [address] [place], [address] RBC (Bld) [#/Vol] 4.26 10*6/uL Normal 4.2-5.4 [facility] Comment on above: Performed By: #### L 100.0100, L501.6710, L500.3400, L501.1105, L101.9900 #### [facility] [address] [place], [address] RDW SD 47.3 fl High 35.1-43.9 [facility] Comment on above: Performed By: #### L 100.0100, L501.6710, L500.3400, L501.1105, L101.9900 #### [facility] [address] [place], [address] WBC (Bld) [#/Vol] 4.1 10*3/uL Low 4.4-11.0 [facility] Comment on above: Performed By: #### L 100.0100, L501.6710, L500.3400, L501.1105, L101.9900 #### [facility] [address] [place], [address] Extremity Upper without Cont raon 03-19-2024 Extremity Upper without Contra [facility] Imaging Services [address] [place] [address] Extremity Upper without Contra MR#: [id number] Acct: [id number] Name: CARLOS WILDER Rep #: [id number] : 1955 F 69 From: Johnny boyer MD PCP: Dr. Joanne Arnold MD Status: REG CLI Study: Extremity Upper without Contra Date of Exam: 0 03/19/24 Exam# [id number] Ordering Dr: Jorge Gomez DO [id number] STUDY: CT LEFT SHOULDER REASON FOR EXAM: Female, 69 years old. SHOULDER PAIN RADIATION DOSAGE (If Supplied By Facility): CTDIvol = ( 22.11 ) mGy, DLP = ( 585.44 ) mGycm TECHNIQUE: The patient was scanned in a multi detector CT scanner. High resolution transaxial imaging was performed without the administration of intravenous contrast material. Sagittal and coronal images were reconstructed. Individualized dose optimization techniques were used for this CT. COMPARISON: Comparison is made with prior study dated November 13, 2023. FINDINGS: Mild degree of joint space narrowing and osteoarthritis of the glenohumeral joint. Mild osteoarthritic spurring. There is evidence of irregularity with subchondral cystic changes in the medial aspect of the humeral head. Degenerative spur formation is also along its inferior margin. This is unchanged. Possible avascular necrosis should be ruled out. Normal coracoid process. Normal visualized lateral clavicle. Normal acromioclavicular articulation. There is a Type II morphology (curved), with a neutral orientation. Normal visualized muscles and soft tissue structures. CT/Extremity Upper without Contra IMPRESSION: Degenerative changes of the glenohumeral joint as described. There has been no change. Electronically Signed: Johnny Acosta MD at 10:44 EDT , CC: Dr. Joanne Arnold MD; Dr. Jorge Gomez DO [employer] Products Assembler: Signed Normal [facility] Magnesiumon 03-19-2024 Magnesium [Mass/Vol] 2.2 mg/dL Normal 1.6-2.6 [facility] Comment on above: Performed By: #### L 501.5200 #### [facility] [address] [place], [address] Cerv Spine 2 or 3 Viewson Cerv Spine 2 or 3 Views [facility] [address] [place], [place] [address] Cerv Spine 2 or 3 Views MR#: [id number] Acct: [id number] Name: CARLOS WILDER Rep #: [id number] : 1955 F 69 From: Jhon Chandler DO PCP: Dr. Joanne Arnold MD Status: REG CLI Study: Cerv Spine 2 or 3 Views Date of Exam: 02/26/24 Exam# [id number] Ordering Dr: Sara Granados DO [id number] STUDY: X-RAY - CERVICAL SPINE REASON FOR EXAM: Female, 69 years old. RHEUMATOID ARTHRITIS TECHNIQUE: 3 lateral view(s) of the cervical spine were obtained, including flexion and extension. COMPARISON: None FINDINGS: Normal anterior atlantoaxial articulation. Normal odontoid process. Normal cervical lordosis. Mild degenerative changes of the mid cervical vertebral bodies with spurring at the endplates from C4 through C6. Narrowed C5-6 and C6-7 disc space heights. There is limitation in flexion and extension. The soft tissue structures are unremarkable. RAD/Cerv Spine 2 or 3 Views IMPRESSION: Degenerative changes of the visualized cervical spine. Limited flexion and extension Electronically Signed: Jhon Chandler DO at 18:09 EDT , CC: Dr. Joanne Arnold MD; Dr. Sara Granados DO [employer]er: Signed Normal [facility] CBC W/Diff, Automatedon 01-29 Absolute Lymph 2.04 X10 3/uL Normal 0.83-4.51 [facility] Comment on above: Performed By: #### L 100.0100, L501.6710, L500.3400, L501.1105, L101.9900 #### [facility] [address] [place], [address] Absolute Neut 1.7 X10 3/uL Low 2.0-7.7 [facility] Comment on above: Performed By: #### L 100.0100, L501.6710, L500.3400, L501.1105, L101.9900 #### [facility] [address] [place], [address] Basophils/100 WBC (Bld) 1.3 % High 0-1 [facility] Comment on above: Performed By: #### L 100.0100, L501.6710, L500.3400, L501.1105, L101.9900 #### [facility] [address] [place], [address] Eosinophils/100 WBC (Bld) 2.9 % Normal 0-5 [facility] Comment on above: Performed By: #### L 100.0100, L501.6710, L500.3400, L501.1105, L101.9900 #### [facility] [address] [place], [address] Erythrocyte distribution width (RBC) [Ratio] 13.3 % Normal 11.6-14.6 [facility] Comment on above: Performed By: #### L 100.0100, L501.6710, L500.3400, L501.1105, L101.9900 #### [facility] [address] [place], [address] Hematocrit (Bld) [Volume fraction] 40.4 % Normal 37-47 [facility] Comment on above: Performed By: #### L 100.0100, L501.6710, L500.3400, L501.1105, L101.9900 #### [facility] [address] [place], [address] Hemoglobin (Bld) [Mass/Vol] 13.5 g/dL Normal 12.0-15.0 [facility] Comment on above: Performed By: #### L 100.0100, L501.6710, L500.3400, L501.1105, L101.9900 #### [facility] [address] [place], [address] IG% 0.200 Normal 0.0-0.9 [facility] Comment on above: Result Comment: IG% - Immature Granulocytes (promyelocytes, myelocytes and metamyelocytes) > 1% indicates that a LEFT SHIFT is Present. Performed By: #### L 100.0100, L501.6710, L500.3400, L501.1105, L101.9900 #### [facility] [address] [place], [address] Lymphocytes/100 WBC (Bld) 44.9 % High 19-41 [facility] Comment on above: Performed By: #### L 100.0100, L501.6710, L500.3400, L501.1105, L101.9900 #### [facility] [address] [place], [address] MCH (RBC) [Entitic mass] 30.8 pg Normal 27.0-32.0 [facility] Comment on above: Performed By: #### L 100.0100, L501.6710, L500.3400, L501.1105, L101.9900 #### [facility] [address] [place], [address] MCHC (RBC) [Mass/Vol] 33.4 g/dL Normal 32-36 [facility] Comment on above: Performed By: #### L 100.0100, L501.6710, L500.3400, L501.1105, L101.9900 #### [facility] [address] [place], [address] MCV (RBC) [Entitic vol] 92.0 fL Normal 81-99 [facility] Comment on above: Performed By: #### L 100.0100, L501.6710, L500.3400, L501.1105, L101.9900 #### [facility] [address] [place], [address] Monocytes/100 WBC (Bld) 14.1 % High 0-10 [facility] Comment on above: Performed By: #### L 100.0100, L501.6710, L500.3400, L501.1105, L101.9900 #### [facility] [address] [place], [address] Neutrophils/100 WBC (Bld) 36.6 % Low 47-70 [facility] Comment on above: Performed By: #### L 100.0100, L501.6710, L500.3400, L501.1105, L101.9900 #### [facility] [address] [place], [address] Nucleated RBC (Bld) [#/Vol] 0 10*3/uL Normal 0-5 [facility] Comment on above: Performed By: #### L 100.0100, L501.6710, L500.3400, L501.1105, L101.9900 #### [facility] [address] [place], [address] Platelet mean volume (Bld) [Entitic vol] 10.8 fL Normal 6.2-12.0 [facility] Comment on above: Performed By: #### L 100.0100, L501.6710, L500.3400, L501.1105, L101.9900 #### [facility] [address] [place], [address] Platelets (Bld) [#/Vol] 216 10*3/uL Normal 150-450 [facility] Comment on above: Performed By: #### L 100.0100, L501.6710, L500.3400, L501.1105, L101.9900 #### [facility] [address] [place], [address] RBC (Bld) [#/Vol] 4.39 10*6/uL Normal 4.2-5.4 [facility] Comment on above: Performed By: #### L 100.0100, L501.6710, L500.3400, L501.1105, L101.9900 #### [facility] [address] [place], [address] RDW SD 45.3 fl High 35.1-43.9 [facility] Comment on above: Performed By: #### L 100.0100, L501.6710, L500.3400, L501.1105, L101.9900 #### [facility] [address] [place], [address] WBC (Bld) [#/Vol] 4.5 10*3/uL Normal 4.4-11.0 [facility] Comment on above: Performed By: #### L 100.0100, L501.6710, L500.3400, L501.1105, L101.9900 #### [facility] [address] [place], [place], [address] CRPon 02-24-2024 C-REACTIVE PROT < 2.90 Normal 0.0-3.0 [facility] Comment on above: Result Comment: C-Re active Protein (CRP) provides useful information for the diagnosis, therapy and monitoring of inflammatory processes and associated diseases. For the evaluation of Relative Risk for Cardiovascular Disease, a High Sensitivity CRP (HSCRP) should be ordered. Performed By: #### L 100.0100, L501.6710, L500.3400, L501.1105, L101.9900 #### [facility] [address] [place], [address] Erythrocyte Sed Rateon 02-23 SED RATE 4 mm/hr Normal 0-30 [facility] Comment on above: Performed By: #### L 100.0100, L501.6710, L500.3400, L501.1105, L101.9900 #### [facility] [address] [place], [address] Liver Profileon 02-24-2024 Albumin [Mass/Vol] 3.6 g/dL Normal 3.2-5.0 [facility] Comment on above: Performed By: #### L 100.0100, L501.6710, L500.3400, L501.1105, L101.9900 #### [facility] [address] [place], [address] ALK P 45 U/L Normal 45-117 [facility] Comment on above: Performed By: #### L 100.0100, L501.6710, L500.3400, L501.1105, L101.9900 #### [facility] [address] [place], [address] ALT [Catalytic activity/Vol] 31 U/L Normal 13-56 [facility] Comment on above: Performed By: #### L 100.0100, L501.6710, L500.3400, L501.1105, L101.9900 #### [facility] [address] [place], [address] AST [Catalytic activity/Vol] 31 U/L Normal 15-37 [facility] Comment on above: Performed By: #### L 100.0100, L501.6710, L500.3400, L501.1105, L101.9900 #### [facility] [address] [place], [address] Bilirubin [Mass/Vol] 0.50 mg/dL Normal 0.20-1.00 [facility] Comment on above: Result Comment: For patients on eltrombopag therapy, use of Dimension [place] TBIL is not recommended. Performed By: #### L 100.0100, L501.6710, L500.3400, L501.1105, L101.9900 #### [facility] [address] [place], [address] Bilirubin.direct [Mass/Vol] 0.13 mg/dL Normal 0.00-0.30 [facility] Comment on above: Performed By: #### L 100.0100, L501.6710, L500.3400, L501.1105, L101.9900 #### [facility] [address] [place], [address] Globulin (S) [Mass/Vol] 3.1 g/dL Normal 2.2-4.2 [facility] Comment on above: Performed By: #### L 100.0100, L501.6710, L500.3400, L501.1105, L101.9900 #### [facility] [address] [place], [address] T PROT 6.7 g/dL Normal 6.4-8.2 [facility] Comment on above: Performed By: #### L 100.0100, L501.6710, L500.3400, L501.1105, L101.9900 #### [facility] [address] [place], [address] Serum Creatinine AND GFRon 0 02-24-2024 Creatinine [Mass/Vol] 0.68 mg/dL Normal 0.55-1.02 [facility] Comment on above: Result Comment: The validity of the calculated GFR GFRAA in patients over 70 years has not been determined. Clinical correlation is essential. Performed By: #### L 100.0100, L501.6710, L500.3400, L501.1105, L101.9900 #### [facility] [address] [place], [address] EST GFR - AA 109 mL/min Normal >60 [facility] Comment on above: Result Comment: Afri can Citizen [place] GFR Calc Performed By: #### L 100.0100, L501.6710, L500.3400, L501.1105, L101.9900 #### [facility] [address] [place], [address] GFR/1.73 sq M.predicted among non-blacks MDRD (S/P/Bld) [Vol rate/Area] 90 mL/min/{1.73_m2} Normal >60 [facility] Comment on above: Result Comment: Non- GFR Calc Performed By: #### L 100.0100, L501.6710, L500.3400, L501.1105, L101.9900 #### [facility] [address] [place], [address] LG Jt Injection/Arthrocentes is: L glenohumeralon 09-05-2023 Sara Granados DO 09/05/2023 11:24 AM LG Jt Injection/Arthrocente sis: L glenohumeral Performed by: Sara Granados DO Authorized by: Sara Granados DO CPT 79450 - Large Joint Arthrocentesis: Consent given by: Patient Time out: Immediately prior to the procedure a time out was called Supporting Documentation: Indications: Pain Procedure Details: Location: Shoulder Site: L glenohumeral Needle size: 25 G Medications: 40 mg triamcinolone acetonide 40 mg/mL Anesthetic used: Lidocaine 1% Patient tolerance: Patient tolerated the procedure well with no immediate complications [facility] XR SHOULDER LEFT 2+ VIEWS (S TANDARD)on 09-05-2023 XR SHOULDER LEFT 2+ VIEWS (STANDARD) EXAMINATION: XR SHOULDER LEFT 2+ VIEWS (STANDARD) HISTORY: ORDERING SYSTEM PROVIDED HISTORY: Chronic pain of both shoulders, TECHNOLOGIST PROVIDED HISTORY: Illness/Other Reason for exam: left shoulder pain Cancer History: u Surgery, RadiationHistory: u Encounter Type: Initial Additional signs and symptoms: . ORDERING SYSTEM PROVIDED DIAGNOSIS CODES: M25.511 Chronic pain of both shoulders G89.29 Chronic pain of both shoulders M25.512 Chronic pain of both shoulders COMPARISON: None. FINDINGS: Two views of the left shoulder. No acute fracture. Glenohumeral and acromioclavicular joints are anatomically aligned. Mild spurring of the acromioclavicular and glenohumeral joints. Possible small intraarticular bodies along the axillary pouch. Soft tissues are within normal limits. IMPRESSION: No acute osseous abnormality. Mild AC and glenohumeral joint degenerative changes. Possible intraarticular bodies along the axillary pouch. [employer] Workstation ID: [id number] Dictated by: HARJINDER HASSAN on FriSep 05, 2023 1:37:28 PM EST Transcribed by: DON PENA on FriSep 05, 2023 2:14:02 PM EST Finalized by: HARJINDER HASSAN on FriSep 07, 2023 10:49:39 PM EDT [facility] Comment on above: Order Comment: Injur y/Trauma or Illness?:Illness/Other How long have you had these symptoms (acute/chronic)?:Chronic Reason for exam?:left shoulder pain History of cancer?:u Surgeries, chemotherapy, or radiation?:u Type of Exam?:Initial Additional signs and symptoms?:. XR SHOULDER RIGHT 2+ VIEWS ( STANDARD)on 09-05-2023 XR SHOULDER RIGHT 2+ VIEWS (STANDARD) EXAMINATION: XR SHOULDER RIGHT 2+ VIEWS (STANDARD) HISTORY: ORDERING SYSTEM PROVIDED HISTORY: Chronic pain of both shoulders, TECHNOLOGIST PROVIDED HISTORY: Illness/Other Reason for exam: right shoulder pain Encounter Type: Initial Additional signs and symptoms: . ORDERING SYSTEM PROVIDED DIAGNOSIS CODES: M25.511 Chronic pain of both shoulders G89.29 Chronic pain of both shoulders M25.512 Chronic pain of both shoulders COMPARISON: None. FINDINGS: Two views of the right shoulder. No acute fracture. Glenohumeral and acromioclavicular joints are anatomically aligned. Mild spurring of the acromioclavicular and glenohumeral joints. Soft tissues are within normal limits. IMPRESSION: No acute osseous abnormality. Mild degenerative changes of the acromioclavicular and glenohumeral joint. [employer] Workstation ID: [id number] Dictated by: HARJINDER HASSAN on FriSep 05, 2023 1:39:06 PM EST Transcribed by: ANDRA ALVARENGA on FriSep 05, 2023 2:09:45 PM EST Finalized by: HARJINDER HASSAN on FriSep 07, 2023 10:51:07 PM EDT [facility] Comment on above: Order Comment: Injur y/Trauma or Illness?:Illness/Other How long have you had these symptoms (acute/chronic)?:Chronic Reason for exam?:right shoulder pain Type of Exam?:Initial Additional signs and symptoms?:. Absolute lymphocyte counton 08-27-2023 Lymphocytes Auto (Unsp spec) [#/Vol] 2.08 10*3/uL 0.83-4.51 [facility] Automated lymphocyte count a s percentage of total leukocyteson 08-27-2023 Lymphocytes/100 WBC Auto (Unsp spec) 49.3 % 19-41 [facility] Basophil percentageon 2023 Basophils/100 WBC (Bld) 1.4 % 0-1 [facility] Bilirubin [Mass/Vol] 0.40 mg/dL 0.20-1.00 [facility] Comment on above: For patients on eltr ombopag therapy, use of Dimension [place] TBIL is not recommended. Eosinophils/100 WBC (Bld) 4.0 % 0-5 [facility] Hemoglobin (Bld) [Mass/Vol] 14.2 g/dL 12.0-15.0 [facility] Monocytes/100 WBC (Bld) 16.8 % 0-10 [facility] Neutrophils (Bld) [#/Vol] 1.2 10*3/uL 2.0-7.7 [facility] Neutrophils/100 WBC (Bld) 28.3 % 47-70 [facility] Protein [Mass/Vol] 7.0 g/dL 6.4-8.2 [facility] WBC (Bld) [#/Vol] 4.2 10*3/uL 4.4-11.0 [facility] Determination of erythrocyte mean corpuscular volume (MCV)on 08-27-2023 MCV (RBC) [Entitic vol] 91.7 fL 81-99 [facility] Direct bilirubinon Bilirubin.direct [Mass/Vol] 0.10 mg/dL 0.00-0.30 [facility] Erythrocyte distribution wid th ratioon 08-27-2023 Erythrocyte distribution width (RBC) [Ratio] 13.4 % 11.6-14.6 [facility] Erythrocyte distribution wid th standard deviationon 08-27-2023 Erythrocyte distribution width (RBC) [Entitic vol] 45.5 fL 35.1-43.9 [facility] Erythrocyte sedimentation ra violet 08-27-2023 ESR (Bld) [Velocity] mm/h 0-30 [facility] Hematocrit Auto (Bld) [Volum e fraction]on 08-27-2023 Hematocrit (Bld) [Volume fraction] 44.0 % 37-47 [facility] Immature granulocytes/100 WB C Auto (Bld)on 08-27-2023 Immature granulocytes/100 WBC (Bld) 0.200 % 0.0-0.9 [facility] Comment on above: IG% - Immature Granu locytes (promyelocytes, myelocytes and metamyelocytes) > 1% indicates that a LEFT SHIFT is Present. Laboratory - Chemistry and C hemistry - challengeon 08-27-2023 ALP [Catalytic activity/Vol] 47 U/L 45-117 [facility] ALT [Catalytic activity/Vol] 32 U/L 13-56 [facility] Globulin (S) [Mass/Vol] 3.3 g/dL 2.2-4.2 [facility] - Hematology and Cell countson 08-27-2023 MCH (RBC) [Entitic mass] 29.6 pg 27.0-32.0 [facility] MCHC (RBC) [Mass/Vol] 32.3 g/dL 32-36 [facility] Nucleated RBC/100 WBC (Bld) [Ratio] 0 % 0-5 [facility] Platelet mean volume (Bld) [Entitic vol] 10.9 fL 6.2-12.0 [facility] Platelets (Bld) [#/Vol] 242 10*3/uL 150-450 [facility] No Panel Informationon 08-27 C-Reactive Protein Extended Range 7.47 mg/L 0.0-3.0 [facility] Comment on above: C-Reactive Protein ( CRP) provides useful information for thediagnosis, therapy and monitoring of inflammatory processesand associated diseases. For the evaluation of Relative Riskfor Cardiovascular Disease, a High Sensitivity CRP (HSCRP)should be ordered. Estimated GFR (MDRD) Amer 107 mL/min >60 [facility] Comment on above: GFR Calc Estimated GFR (MDRD) Non-Af Amer 88 mL/min >60 [facility] Comment on above: Non- GFR Calc RBC Auto (Bld) [#/Vol]on RBC (Bld) [#/Vol] 4.80 10*6/uL 4.2-5.4 [facility] Serum or plasma creatinine m easurement (mass/volume)on 08-27-2023 Creatinine [Mass/Vol] 0.70 mg/dL 0.55-1.02 [facility] Comment on above: The validity of the calculated GFR & GFRAA in patients over 70 years has not been determined. Clinical correlation is essential. Thin prep Papanicolaou smear with manual screeningon 08-27-2023 Thin prep Papanicolaou smear with manual screening 3.7 g/dL 3.2-5.0 [facility] Thin prep Papanicolaou smear with manual screening 28 U/L 15-37 [facility] Absolute lymphocyte counton 07-16-2023 Lymphocytes Auto (Unsp spec) [#/Vol] 2.32 10*3/uL 0.83-4.51 [facility] Automated lymphocyte count a s percentage of total leukocyteson 07-16-2023 Lymphocytes/100 WBC Auto (Unsp spec) 38.8 % 19-41 [facility] Basophil percentageon 2023 Basophils/100 WBC (Bld) 1.2 % 0-1 [facility] Bilirubin [Mass/Vol] 0.30 mg/dL 0.20-1.00 [facility] Comment on above: For patients on eltr ombopag therapy, use of Dimension [place] TBIL is not recommended. Eosinophils/100 WBC (Bld) 2.5 % 0-5 [facility] Hemoglobin (Bld) [Mass/Vol] 13.2 g/dL 12.0-15.0 [facility] Monocytes/100 WBC (Bld) 13.0 % 0-10 [facility] Neutrophils (Bld) [#/Vol] 2.7 10*3/uL 2.0-7.7 [facility] Neutrophils/100 WBC (Bld) 44.3 % 47-70 [facility] Protein [Mass/Vol] 6.9 g/dL 6.4-8.2 [facility] WBC (Bld) [#/Vol] 6.0 10*3/uL 4.4-11.0 [facility] Determination of erythrocyte mean corpuscular volume (MCV)on 07-16-2023 MCV (RBC) [Entitic vol] 93.7 fL 81-99 [facility] Direct bilirubinon Bilirubin.direct [Mass/Vol] 0.13 mg/dL 0.00-0.30 [facility] Erythrocyte distribution wid th ratioon 07-16-2023 Erythrocyte distribution width (RBC) [Ratio] 13.8 % 11.6-14.6 [facility] Erythrocyte distribution wid th standard deviationon 07-16-2023 Erythrocyte distribution width (RBC) [Entitic vol] 46.8 fL 35.1-43.9 [facility] Erythrocyte sedimentation ra violet 07-16-2023 ESR (Bld) [Velocity] 2 mm/h 0-30 [facility] Hematocrit Auto (Bld) [Volum e fraction]on 07-16-2023 Hematocrit (Bld) [Volume fraction] 41.8 % 37-47 [facility] Immature granulocytes/100 WB C Auto (Bld)on 07-16-2023 Immature granulocytes/100 WBC (Bld) 0.200 % 0.0-0.9 [facility] Comment on above: IG% - Immature Granu locytes (promyelocytes, myelocytes and metamyelocytes) > 1% indicates that a LEFT SHIFT is Present. Laboratory - Chemistry and C hemistry - challengeon 07-16-2023 ALP [Catalytic activity/Vol] 59 U/L 45-117 [facility] ALT [Catalytic activity/Vol] 29 U/L 13-56 [facility] Globulin (S) [Mass/Vol] 3.3 g/dL 2.2-4.2 [facility] - Hematology and Cell countson 07-16-2023 MCH (RBC) [Entitic mass] 29.6 pg 27.0-32.0 [facility] MCHC (RBC) [Mass/Vol] 31.6 g/dL 32-36 [facility] Nucleated RBC/100 WBC (Bld) [Ratio] 0 % 0-5 [facility] Platelets (Bld) [#/Vol] 232 10*3/uL 150-450 [facility] No Panel Informationon 07-16 C-Reactive Protein Extended Range 3.25 mg/L 0.0-3.0 [facility] Comment on above: C-Reactive Protein ( CRP) provides useful information for thediagnosis, therapy and monitoring of inflammatory processesand associated diseases. For the evaluation of Relative Riskfor Cardiovascular Disease, a High Sensitivity CRP (HSCRP)should be ordered. Estimated GFR (MDRD) Amer 118 mL/min >60 [facility] Comment on above: GFR Calc Estimated GFR (MDRD) Non-Af Amer 98 mL/min >60 [facility] Comment on above: Non- GFR Calc Platelet mean volume Luis-Ec ker (Bld) [Entitic vol]on 07-16-2023 Platelet mean volume (Bld) [Entitic vol] 10.2 fL 6.2-12.0 [facility] RBC Auto (Bld) [#/Vol]on RBC (Bld) [#/Vol] 4.46 10*6/uL 4.2-5.4 [facility] Serum or plasma creatinine m easurement (mass/volume)on 07-16-2023 Creatinine [Mass/Vol] 0.64 mg/dL 0.55-1.02 [facility] Comment on above: The validity of the calculated GFR & GFRAA in patients over 70 years has not been determined. Clinical correlation is essential. Thin prep Papanicolaou smear with manual screeningon 07-16-2023 Thin prep Papanicolaou smear with manual screening 3.6 g/dL 3.2-5.0 [facility] Thin prep Papanicolaou smear with manual screening 30 U/L 15-37 [facility] Creatinine [Mass/Vol]on GFR/1.73 sq M.predicted CKD-EPI (S/P/Bld) [Vol rate/Area] 91 - PINF [facility] Comment on above: Estimated GFR was ca lculated using the 2020 CKD-EPI creatinine equation. Interpretation and review of laboratory results Normal [facility] has implemented the eGFR calculation approach that does not have a coefficient for race that conforms to the NKF-ASN Task Force Recommendations. [facility] Laboratory - Chemistry and C hemistry - challengeon 07-02-2023 Creatinine [Mass/Vol] 0.72 mg/dL 0.60 - 1.20 mg/dL [facility] Creatinine [Mass/Vol]on GFR/1.73 sq M.predicted CKD-EPI (S/P/Bld) [Vol rate/Area] 88 - PINF [facility] Comment on above: Estimated GFR was ca lculated using the 2020 CKD-EPI creatinine equation. [facility] has implemented the eGFR calculation approach that does not have a coefficient for race that conforms to the NKF-ASN Task Force Recommendations. [facility] Laboratory - Chemistry and C hemistry - challengeon 06-06-2023 25-hydroxyvitamin D [Mass/Vol] 49 ng/mL 30 - 100 ng/mL [facility] Comment on above: Vitamin D status: Deficiency: <20 ng/mL Insufficiency: 20-30 ng/mL Sufficiency: 30-100 ng/mL Toxicity: >100 ng/mL Please note that Fluorescein which is used in angiography has been shown to falsely elevate the results of Vitamin D with our current assay. Evidence suggests that patients undergoing fluorescein dye angiography can retain small amounts of fluorescein in the body for up to 48 to 72 hours post-treatment. In the cases of patients with renal insufficiency, retention could be much longer. Samples should be resubmitted post fluorescein clearance to ensure there is no interference with the Vitamin D test result. Calcium [Mass/Vol] 9.5 mg/dL 8.4 - 10. 2 mg/dL [facility] Creatinine [Mass/Vol] 0.74 mg/dL 0.60 - 1.20 mg/dL [facility] No Panel Informationon 06-06 Interpretation and review of laboratory results Normal [facility] Assay performed margarito Ceja's chemiluminescence methodology. [facility] Interpretation and review of laboratory results Normal [facility] CBC, EDIF, PLATELETon 2021 ABSOLUTE BASOPHIL COUNT 0.0 10*3/uL 0.0 - 0.2 10*3/uL [facility] Basophils/100 WBC (Bld) 0.2 % 0.0 - 2.0 % [facility] Differential cell count method Nom (Bld) AUTO DIFF % [facility] Eosinophils (Bld) [#/Vol] 0.0 10*3/uL 0.0 - 0.7 10*3/uL [facility] Eosinophils/100 WBC (Bld) 0.2 % 0.0 - 11.0 % [facility] Erythrocyte distribution width (RBC) [Ratio] 15.2 % High 11.5 - 14.5 % [facility] Hematocrit (Bld) [Volume fraction] 29.9 % Low 36.0 - 48.0 % [facility] Hemoglobin (Bld) [Mass/Vol] 9.9 g/dL Low [facility] Interpretation and review of laboratory results Abnormal [facility] Lymphocytes (Bld) [#/Vol] 1.6 10*3/uL 1.2 - 3.4 10*3/uL [facility] Lymphocytes/100 WBC (Bld) 21.1 % 20.0 - 55.0 % [facility] MCH (RBC) [Entitic mass] 31.6 pg 26.0 - 35.0 PG [facility] MCHC (RBC) [Mass/Vol] 33.0 g/dL [facility] MCV (RBC) [Entitic vol] 95.9 fL [facility] Monocytes (Bld) [#/Vol] 1.5 10*3/uL High 0.0 - 0.7 10*3/uL [facility] Monocytes/100 WBC (Bld) 20.2 % High 0.0 - 10.0 % [facility] Neutrophils (Bld) [#/Vol] 4.4 10*3/uL 1.4 - 6.5 10*3/uL [facility] Neutrophils/100 WBC (Bld) 58.3 % 37.0 - 75.0 % [facility] Platelet mean volume (Bld) [Entitic vol] 8.6 fL [facility] Platelets (Bld) [#/Vol] 112 10*3/uL Low 130. 0 - 400.0 10*3/uL [facility] RBC (Bld) [#/Vol] 3.12 10*6/uL Low 4.0 - 5.4 10*6/uL [facility] WBC (Bld) [#/Vol] 7.5 10*3/uL 3.6 - 11.0 10*3/uL [facility] GLUCOSE (POC DEVICE)on 06-18 GLUCOSE, POINT OF CARE 125 High [facility] Interpretation and review of laboratory results Abnormal [facility] Operator [id number] [facility] HEMOGLOBIN & HEMATOCRITon Hematocrit (Bld) [Volume fraction] 33.9 % Low 36.0 - 48.0 % [facility] Hemoglobin (Bld) [Mass/Vol] 11.0 g/dL Low [facility] Interpretation and review of laboratory results Abnormal [facility] Hematocrit (Bld) [Volume fraction] 33.9 % Low 36.0 - 48.0 % [facility] Hemoglobin (Bld) [Mass/Vol] 11.2 g/dL Low [facility] Interpretation and review of laboratory results Abnormal [facility] REPEAT ABO/RH (D) TYPINGon 1 08-19-2021 ABO and Rh group Nom (Bld ) Positive [facility] XR Pelvis APon 06-18-2022 IMPRESSION: Routine postoperative changes of the right hip. RADIOLOGY EXAM: XR PELVIS AP ONLY HISTORY: stephanie COMPARISON: 04/10/2022 TECHNIQUE: Frontal view of the pelvis. FINDINGS: There is new right hip arthroplasty hardware. There are no acute fractures or dislocations. There is air in the soft tissues by the right hip joint. RADIOLOGY Hawa, Kassidy España MD - 06/18/2022 EXAM: XR PELVIS AP ONLY HISTORY: stephanie COMPARISON: 04/10/2022 TECHNIQUE: Frontal view of the pelvis. FINDINGS: There is new right hip arthroplasty hardware. There are no acute fractures or dislocations. There is air in the soft tissues by the right hip joint. IMPRESSION IMPRESSION: Routine postoperative changes of the right hip. [facility] Radiology Study observation (narrative) [facility] XR Pelvis APOrdered By: Nicolas Shaikh on 06-18-2022 [facility] Work Phone: MRI BRAIN W/ + W/O CONTRASTo n 06-07-2022 MRI BRAIN W/ + W/O CONTRAST ORIGINAL HISTORY: Memory impairment COMPARISON: No TECHNIQUE: 1. Axial and sagittal T1-weighted images. 2. Axial T2-weighted images. 3. Axial and sagittal FLAIR images. 4. Axial diffusion-weighted images with ADC map. 5. Axial, coronal and sagittal T1-weighted images following uncomplicated administration of intravenous gadolinium contrast. FINDINGS: The ventricles and sulci are mildly enlarged. There are no abnormal intra or extra-axial fluid collections. There are mild scattered punctate and nodular T2 hyperintensities in the cerebral white matter; these do not show any association with the roof of the corpus callosum. Gil-white matter differentiation is maintained. There is no abnormal restriction of diffusion. There is no abnormal enhancement of the brain or its coverings. The orbital contents are normal in appearance. The paranasal sinuses are clear. IMPRESSION: Mild volume loss and small vessel ischemic disease. Interpreted by: Estephanie Cisneros MD Preliminary Report By: Estephanie Cisneros MD Electronically signed By Estephanie Cisneros MD Dictated Date: 06/07/2022 9:55:05 AM Prelim Date: 06/07/2022 10:00:25 AM Sign Date: 06/07/2022 10:00:25 AM Ordering Provider: MUKESH Jenkins [facility] ([place]) Basophil percentageon 2021 Ammonia (P) [Moles/Vol] 26.0 umol/L [facility] Work Phone: Bilirubin [Mass/Vol] 0.50 mg/dL 0.20-1.00 [facility] Work Phone: Comment on above: For patients on eltr ombopag therapy, use of Dimension [place] TBIL is not recommended. Chloride [Moles/Vol] 103 mmol/L 98-107 [facility] Work Phone: Glucose [Mass/Vol] 88 mg/dL 74-106 [facility] Work Phone: Potassium [Moles/Vol] 4.1 mmol/L 3.5-5.1 [facility] Work Phone: Protein [Mass/Vol] 6.7 g/dL 6.4-8.2 [facility] Work Phone: Sodium [Moles/Vol] 139 mmol/L 136-145 [facility] Work Phone: Laboratory - Chemistry and C hemistry - challengeon 05-31-2022 ALP [Catalytic activity/Vol] 60 U/L 45-117 [facility] Work Phone: ALT [Catalytic activity/Vol] 79 U/L 13-56 [facility] Work Phone: CO2 [Moles/Vol] 30.0 mmol/L 21.0-32.0 [facility] Work Phone: Cobalamin (Vitamin B12) [Mass/Vol] 828 pg/mL 211-911 [facility] Work Phone: Globulin (S) [Mass/Vol] 3.1 g/dL 2.2-4.2 [facility] Work Phone: Urea nitrogen/Creatinine [Mass ratio] 27.6 mg/mg 10-20 [facility] Work Phone: No Panel Informationon 05-31 Estimated GFR (MDRD) Amer 109 mL/min >60 [facility] Work Phone: Comment on above: GFR Calc Estimated GFR (MDRD) Non-Af Amer 90 mL/min >60 [facility] Work Phone: Comment on above: Non- GFR Calc Thyroid Stimulating Hormone (TSH) 2.23 uIU/mL 0.358-3.74 [facility] Work Phone: Valproic Acid (Depakene) Level 79 ug/mL 50-100 [facility] Work Phone: Serum or plasma albumin jaycob urement (mass/volume)on 05-31-2022 Albumin [Mass/Vol] 3.6 g/dL 3.2-5.0 [facility] Work Phone: Serum or plasma albumin/glob ulin mass ratioon 05-31-2022 Albumin/Globulin [Mass ratio] 1.2 {ratio} 0.9-2.4 [facility] Work Phone: Serum or plasma calcium jaycob urement (mass/volume)on 05-31-2022 Calcium [Mass/Vol] 8.6 mg/dL 8.5-10.1 [facility] Work Phone: Serum or plasma creatinine m easurement (mass/volume)on 05-31-2022 Creatinine [Mass/Vol] 0.69 mg/dL 0.55-1.02 [facility] Work Phone: Comment on above: The validity of the calculated GFR & GFRAA in patients over 70 years has not been determined. Clinical correlation is essential. Serum or plasma urea nitroge n measurement (mass/volume)on 05-31-2022 Urea nitrogen [Mass/Vol] 19 mg/dL 7-18 [facility] Work Phone: Thin prep Papanicolaou smear with manual screeningon 05-31-2022 Thin prep Papanicolaou smear with manual screening 68 U/L 15-37 [facility] Work Phone: Thin prep Papanicolaou smear with manual screening 6 5-15 [facility] Work Phone: LARGE JOINT/BURSA INJECTION AND/OR ASPIRATIONon 03-08-2022 Michaela Alarcon MD - 03/08/2022 8:45 AM EDT Procedure: Right Hip Injection under Fluoroscopic Guidance Attending physician: Michaela Alarcon MD Preoperative diagnosis: Right Hip pain Postoperative diagnosis: Same Anesthesia: Local Indication for procedure: Patient presents with right hip pain radiating to the groin. The patient presents for right hip injection. Technique: The plasma processing technician's and physician's hands were washed immediately prior to the procedure using a chlorhexidine soap or sanitized using ethyl alcohol hand pottery decoration designer. Hat, mask, and sterile gloves were used [...] complications. PLAN :Follow-up at next scheduled visit [facility] Radiology Study observation (narrative) [facility] LG Jt Injection/Arthrocentes is: L greater trochanteric bursaon 11-27-2021 Andrea Ewing MD 11/27/2021 3:29 PM LG Jt Injection/Arthrocente sis: L greater trochanteric bursa Date/Time: 11/27/2021 2:08 PM Performed by: Andrea Ewing MD Authorized by: Andrea Ewing MD CPT 82150 - Large Joint Arthrocentesis: Consent given by: [...] the procedure well with no immediate complications [facility] LG Jt Injection/Arthrocentes is: R greater trochanteric bursaon 11-27-2021 Andrea Ewing MD 11/27/2021 3:29 PM LG Jt Injection/Arthrocente sis: R greater trochanteric bursa Date/Time: 11/27/2021 2:08 PM Performed by: Andrea Ewing MD Authorized by: Andrea Ewing MD CPT 42830 - Large Joint Arthrocentesis: Consent given by: [...] the procedure well with no immediate complications [facility] Absolute lymphocyte counton 09-18-2021 Lymphocytes Auto (Unsp spec) [#/Vol] 1.69 10*3/uL 0.83-4.51 [facility] Work Phone: Basophil percentageon 2021 Basophils/100 WBC (Bld) 0.8 % 0-1 [facility] Work Phone: Eosinophils/100 WBC (Bld) 2.0 % 0-5 [facility] Work Phone: Neutrophils (Bld) [#/Vol] 3.4 10*3/uL 2.0-7.7 [facility] Work Phone: Neutrophils/100 WBC (Bld) 57.6 % 47-70 [facility] Work Phone: WBC (Bld) [#/Vol] 5.9 10*3/uL 4.4-11.0 [facility] Work Phone: Blood erythrocytes count (nu mber/volume)on 09-18-2021 RBC (Bld) [#/Vol] 4.45 10*6/uL 4.2-5.4 [facility] Work Phone: Blood hemoglobin measurement (mass/volume)on 09-18-2021 Hemoglobin (Bld) [Mass/Vol] 14.1 g/dL 12.0-15.0 [facility] Work Phone: Blood lymphocytes/100 leukoc yteson 09-18-2021 Lymphocytes/100 WBC (Bld) 28.5 % 19-41 [facility] Work Phone: Blood monocytes/100 leukocyt eson 09-18-2021 Monocytes/100 WBC (Bld) 10.8 % 0-10 [facility] Work Phone: Blood platelet mean volumeon 09-18-2021 Platelet mean volume (Bld) [Entitic vol] 10.5 fL 6.2-12.0 [facility] Work Phone: [phone] Determination of erythrocyte mean corpuscular volume (MCV)on 09-18-2021 MCV (RBC) [Entitic vol] 95.1 fL 81-99 [facility] Work Phone: [phone] Hematocrit Auto (Bld) [Volum e fraction]on 09-18-2021 Hematocrit (Bld) [Volume fraction] 42.3 % 37-47 [facility] Work Phone: [phone] Laboratory - Chemistry and C hemistry - challengeon 09-18-2021 ALT [Catalytic activity/Vol] 36 U/L 13-56 [facility] Work Phone: [phone] Laboratory - Hematology and Cell countson 09-18-2021 Erythrocyte distribution width (RBC) [Entitic vol] 49.9 fL 35.1-43.9 [facility] Work Phone: [phone] Erythrocyte distribution width (RBC) [Ratio] 14.6 % 11.6-14.6 [facility] Work Phone: [phone] Immature granulocytes/100 WBC (Bld) 0.300 % 0.0-0.9 [facility] Work Phone: [phone] Comment on above: IG% - Immature Granu locytes (promyelocytes, myelocytes and metamyelocytes) > 1% indicates that a LEFT SHIFT is Present. MCH (RBC) [Entitic mass] 31.7 pg 27.0-32.0 [facility] Work Phone: [phone] Nucleated RBC/100 WBC (Bld) [Ratio] 0 % 0-5 [facility] Work Phone: [phone] MCHC Auto (RBC) [Mass/Vol]on 09-18-2021 MCHC (RBC) [Mass/Vol] 33.3 g/dL 32-36 [facility] Work Phone: [phone] No Panel Informationon 09-18 Estimated GFR (MDRD) Amer 103 mL/min >60 [facility] Work Phone: [phone] Comment on above: GFR Calc Estimated GFR (MDRD) Non-Af Amer 85 mL/min >60 [facility] Work Phone: Comment on above: Non- GFR Calc Platelets bldon 09-18-2021 Platelets (Bld) [#/Vol] 216 10*3/uL 150-450 [facility] Work Phone: Serum or plasma C reactive p rotein measurement (mass/volume)on 09-18-2021 CRP [Mass/Vol] 10.40 mg/L 0.0-3.0 [facility] Work Phone: Comment on above: C-Reactive Protein ( CRP) provides useful information for thediagnosis, therapy and monitoring of inflammatory processesand associated diseases. For the evaluation of Relative Riskfor Cardiovascular Disease, a High Sensitivity CRP (HSCRP)should be ordered. Serum or plasma albumin jaycob urement (mass/volume)on 09-18-2021 Albumin [Mass/Vol] 3.4 g/dL 3.2-5.0 [facility] Work Phone: Serum or plasma creatinine m easurement (mass/volume)on 09-18-2021 Creatinine [Mass/Vol] 0.73 mg/dL 0.55-1.02 [facility] Work Phone: Comment on above: The validity of the calculated GFR & GFRAA in patients over 70 years has not been determined. Clinical correlation is essential. Serum or plasma urea nitroge n measurement (mass/volume)on 09-18-2021 Urea nitrogen [Mass/Vol] 18 mg/dL 7-18 [facility] Work Phone: [phone] Thin prep Papanicolaou smear with manual screeningon 09-18-2021 Thin prep Papanicolaou smear with manual screening 26 U/L 15-37 [facility] Work Phone: [phone] Basophil percentageon 2021 Chloride [Moles/Vol] 100 mmol/L 98-107 [facility] Work Phone: Glucose [Mass/Vol] 100 mg/dL 74-106 [facility] Work Phone: Comment on above: Fasting Glucose resu lt from 100 to 125 mg/dL suggests IMPAIRED HOMEOSTASIS per A.D.A. criteria. Potassium [Moles/Vol] 3.9 mmol/L 3.5-5.1 [facility] Work Phone: [phone] Sodium [Moles/Vol] 135 mmol/L 136-145 [facility] Work Phone: [phone] WBC (Bld) [#/Vol] 9.9 10*3/uL 4.4-11.0 [facility] Work Phone: [phone] Blood erythrocytes count (nu mber/volume)on 07-18-2021 RBC (Bld) [#/Vol] 4.60 10*6/uL 4.2-5.4 [facility] Work Phone: [phone] Blood hemoglobin measurement (mass/volume)on 07-18-2021 Hemoglobin (Bld) [Mass/Vol] 14.3 g/dL 12.0-15.0 [facility] Work Phone: [phone] Blood platelet mean volumeon 07-18-2021 Platelet mean volume (Bld) [Entitic vol] 9.9 fL 6.2-12.0 [facility] Work Phone: [phone] Carboxyhemoglobinon 07-18-19 Carboxyhemoglobin (Bld) [Mass/Vol] 3.7 % 0.0-1.5 [facility] Work Phone: [phone] Comment on above: * NON-SMOKER RANGE 1 .6 - 5.0% * LIGHT SMOKER RANGE 5.1 - 9.0% * HEAVY SMOKER RANGE Culture, urineon 07-18-2021 Bacteria identified Cx Nom (U) Streptococcus group B [facility] Work Phone: [phone] Bacteria identified Cx Nom (U) Positive [facility] Work Phone: [phone] Determination of erythrocyte mean corpuscular volume (MCV)on 07-18-2021 MCV (RBC) [Entitic vol] 95.2 fL 81-99 [facility] Work Phone: [phone] Hematocrit Auto (Bld) [Volum e fraction]on 07-18-2021 Hematocrit (Bld) [Volume fraction] 43.8 % 37-47 [facility] Work Phone: Laboratory - Chemistry and C hemistry - challengeon 07-18-2021 CO2 [Moles/Vol] 27.0 mmol/L 21.0-32.0 [facility] Work Phone: Urea nitrogen/Creatinine [Mass ratio] 29.1 mg/mg 10-20 [facility] Work Phone: [phone] Laboratory - Hematology and Cell countson 07-18-2021 Erythrocyte distribution width (RBC) [Entitic vol] 47.5 fL 35.1-43.9 [facility] Work Phone: Erythrocyte distribution width (RBC) [Ratio] 13.6 % 11.6-14.6 [facility] Work Phone: MCH (RBC) [Entitic mass] 31.1 pg 27.0-32.0 [facility] Work Phone: MCHC Auto (RBC) [Mass/Vol]on 07-18-2021 MCHC (RBC) [Mass/Vol] 32.6 g/dL 32-36 [facility] Work Phone: No Panel Informationon 07-18 Estimated GFR (MDRD) Amer 98 mL/min >60 [facility] Work Phone: Comment on above: GFR Calc Estimated GFR (MDRD) Non-Af Amer 81 mL/min >60 [facility] Work Phone: Comment on above: Non- GFR Calc Platelets bldon 07-18-2021 Platelets (Bld) [#/Vol] 212 10*3/uL 150-450 [facility] Work Phone: Serum or plasma calcium jaycob urement (mass/volume)on 07-18-2021 Calcium [Mass/Vol] 9.0 mg/dL 8.5-10.1 [facility] Work Phone: Serum or plasma creatinine m easurement (mass/volume)on 07-18-2021 Creatinine [Mass/Vol] 0.76 mg/dL 0.55-1.02 [facility] Work Phone: Comment on above: The validity of the calculated GFR & GFRAA in patients over 70 years has not been determined. Clinical correlation is essential. Serum or plasma urea nitroge n measurement (mass/volume)on 07-18-2021 Urea nitrogen [Mass/Vol] 22 mg/dL 7-18 [facility] Work Phone: Thin prep Papanicolaou smear with manual screeningon 07-18-2021 Thin prep Papanicolaou smear with manual screening 8 5-15 [facility] Work Phone: Absolute lymphocyte counton 07-13-2021 Lymphocytes Auto (Unsp spec) [#/Vol] 1.36 10*3/uL 0.83-4.51 [facility] Work Phone: Basophil percentageon 2021 Basophils/100 WBC (Bld) 0.8 % 0-1 [facility] Work Phone: Bilirubin [Mass/Vol] 0.30 mg/dL 0.20-1.00 [facility] Work Phone: Comment on above: For patients on eltr ombopag therapy, use of Dimension [place] TBIL is not recommended. Chloride [Moles/Vol] 107 mmol/L 98-107 [facility] Work Phone: Eosinophils/100 WBC (Bld) 2.5 % 0-5 [facility] Work Phone: Glucose [Mass/Vol] 102 mg/dL 74-106 [facility] Work Phone: Comment on above: Fasting Glucose resu lt from 100 to 125 mg/dL suggests IMPAIRED HOMEOSTASIS per A.D.A. criteria. Neutrophils (Bld) [#/Vol] 3.4 10*3/uL 2.0-7.7 [facility] Work Phone: Neutrophils/100 WBC (Bld) 58.1 % 47-70 [facility] Work Phone: Potassium [Moles/Vol] 4.3 mmol/L 3.5-5.1 [facility] Work Phone: [phone] Protein [Mass/Vol] 7.4 g/dL 6.4-8.2 [facility] Work Phone: [phone] Sodium [Moles/Vol] 141 mmol/L 136-145 [facility] Work Phone: [phone] WBC (Bld) [#/Vol] 5.9 10*3/uL 4.4-11.0 [facility] Work Phone: [phone] Blood erythrocytes count (nu mber/volume)on 07-13-2021 RBC (Bld) [#/Vol] 4.54 10*6/uL 4.2-5.4 [facility] Work Phone: [phone] Blood hemoglobin measurement (mass/volume)on 07-13-2021 Hemoglobin (Bld) [Mass/Vol] 13.8 g/dL 12.0-15.0 [facility] Work Phone: [phone] Blood lymphocytes/100 leukoc yteson 07-13-2021 Lymphocytes/100 WBC (Bld) 22.9 % 19-41 [facility] Work Phone: [phone] Blood monocytes/100 leukocyt eson 07-13-2021 Monocytes/100 WBC (Bld) 15.0 % 0-10 [facility] Work Phone: [phone] Blood platelet mean volumeon 07-13-2021 Platelet mean volume (Bld) [Entitic vol] 10.2 fL 6.2-12.0 [facility] Work Phone: [phone] Carboxyhemoglobinon 07-13-19 Carboxyhemoglobin (Bld) [Mass/Vol] 3.0 % 0.0-1.5 [facility] Work Phone: [phone] Comment on above: * NON-SMOKER RANGE 1 .6 - 5.0% * LIGHT SMOKER RANGE 5.1 - 9.0% * HEAVY SMOKER RANGE Determination of erythrocyte mean corpuscular volume (MCV)on 07-13-2021 MCV (RBC) [Entitic vol] 94.1 fL 81-99 [facility] Work Phone: [phone] Hematocrit Auto (Bld) [Volum e fraction]on 07-13-2021 Hematocrit (Bld) [Volume fraction] 42.7 % 37-47 [facility] Work Phone: [phone] Laboratory - Chemistry and C hemistry - challengeon 07-13-2021 ALP [Catalytic activity/Vol] 74 U/L 45-117 [facility] Work Phone: [phone] ALT [Catalytic activity/Vol] 42 U/L 13-56 [facility] Work Phone: [phone] CO2 [Moles/Vol] 28.0 mmol/L 21.0-32.0 [facility] Work Phone: [phone] Globulin (S) [Mass/Vol] 3.9 g/dL 2.2-4.2 [facility] Work Phone: [phone] Urea nitrogen/Creatinine [Mass ratio] 32.0 mg/mg 10-20 [facility] Work Phone: [phone] Laboratory - Hematology and Cell countson 07-13-2021 Erythrocyte distribution width (RBC) [Entitic vol] 47.9 fL 35.1-43.9 [facility] Work Phone: [phone] Erythrocyte distribution width (RBC) [Ratio] 13.9 % 11.6-14.6 [facility] Work Phone: [phone] Immature granulocytes/100 WBC (Bld) 0.700 % 0.0-0.9 [facility] Work Phone: [phone] Comment on above: IG% - Immature Granu locytes (promyelocytes, myelocytes and metamyelocytes) > 1% indicates that a LEFT SHIFT is Present. MCH (RBC) [Entitic mass] 30.4 pg 27.0-32.0 [facility] Work Phone: [phone] Nucleated RBC/100 WBC (Bld) [Ratio] 0 % 0-5 [facility] Work Phone: [phone] MCHC Auto (RBC) [Mass/Vol]on 07-13-2021 MCHC (RBC) [Mass/Vol] 32.3 g/dL 32-36 [facility] Work Phone: No Panel Informationon 07-13 Estimated GFR (MDRD) Amer 80 mL/min >60 [facility] Work Phone: Comment on above: GFR Calc Estimated GFR (MDRD) Non-Af Amer 66 mL/min >60 [facility] Work Phone: Comment on above: Non- GFR Calc Thyroid Stimulating Hormone (TSH) 2.29 uIU/mL 0.358-3.74 [facility] Work Phone: Platelets bldon 07-13-2021 Platelets (Bld) [#/Vol] 141 10*3/uL 150-450 [facility] Work Phone: Serum or plasma albumin jaycob urement (mass/volume)on 07-13-2021 Albumin [Mass/Vol] 3.5 g/dL 3.2-5.0 [facility] Work Phone: Serum or plasma albumin/glob ulin mass ratioon 07-13-2021 Albumin/Globulin [Mass ratio] 0.9 {ratio} 0.9-2.4 [facility] Work Phone: Serum or plasma calcium jaycob urement (mass/volume)on 07-13-2021 Calcium [Mass/Vol] 9.1 mg/dL 8.5-10.1 [facility] Work Phone: Serum or plasma creatinine m easurement (mass/volume)on 07-13-2021 Creatinine [Mass/Vol] 0.90 mg/dL 0.55-1.02 [facility] Work Phone: Comment on above: The validity of the calculated GFR & GFRAA in patients over 70 years has not been determined. Clinical correlation is essential. Serum or plasma urea nitroge n measurement (mass/volume)on 07-13-2021 Urea nitrogen [Mass/Vol] 29 mg/dL 7-18 [facility] Work Phone: Thin prep Papanicolaou smear with manual screeningon 07-13-2021 Thin prep Papanicolaou smear with manual screening 29 U/L 15-37 [facility] Work Phone: Thin prep Papanicolaou smear with manual screening 6 5-15 [facility] Work Phone: Absolute lymphocyte counton 06-28-2021 Lymphocytes Auto (Unsp spec) [#/Vol] 1.55 10*3/uL 0.83-4.51 [facility] Work Phone: Basophil percentageon 2020 Eosinophils/100 WBC (Bld) 3.2 % 0-5 [facility] Work Phone: Neutrophils (Bld) [#/Vol] 2.6 10*3/uL 2.0-7.7 [facility] Work Phone: WBC (Bld) [#/Vol] 5.3 10*3/uL 4.4-11.0 [facility] Work Phone: Blood erythrocytes count (nu mber/volume)on 06-28-2021 RBC (Bld) [#/Vol] 4.04 10*6/uL 4.2-5.4 [facility] Work Phone: Blood hemoglobin measurement (mass/volume)on 06-28-2021 Hemoglobin (Bld) [Mass/Vol] 12.9 g/dL 12.0-15.0 [facility] Work Phone: Blood lymphocytes/100 leukoc yteson 06-28-2021 Lymphocytes/100 WBC (Bld) 29.3 % 19-41 [facility] Work Phone: Blood monocytes/100 leukocyt eson 06-28-2021 Monocytes/100 WBC (Bld) 17.8 % 0-10 [facility] Work Phone: Blood platelet mean volumeon 06-28-2021 Platelet mean volume (Bld) [Entitic vol] 11.1 fL 6.2-12.0 [facility] Work Phone: Determination of erythrocyte mean corpuscular volume (MCV)on 06-28-2021 MCV (RBC) [Entitic vol] 95.0 fL 81-99 [facility] Work Phone: [phone] Hematocrit Auto (Bld) [Volum e fraction]on 06-28-2021 Hematocrit (Bld) [Volume fraction] 38.4 % 37-47 [facility] Work Phone: [phone] Laboratory - Chemistry and C hemistry - challengeon 06-28-2021 ALT [Catalytic activity/Vol] 38 U/L 13-56 [facility] Work Phone: [phone] Laboratory - Hematology and Cell countson 06-28-2021 Basophils/100 WBC (Unsp spec) 0.8 % 0-1 [facility] Work Phone: [phone] Erythrocyte distribution width (RBC) [Entitic vol] 48.9 fL 35.1-43.9 [facility] Work Phone: [phone] Erythrocyte distribution width (RBC) [Ratio] 14.1 % 11.6-14.6 [facility] Work Phone: [phone] Immature granulocytes/100 WBC (Bld) 0.400 % 0.0-0.9 [facility] Work Phone: [phone] Comment on above: IG% - Immature Granu locytes (promyelocytes, myelocytes and metamyelocytes) > 1% indicates that a LEFT SHIFT is Present. MCH (RBC) [Entitic mass] 31.9 pg 27.0-32.0 [facility] Work Phone: [phone] Neutrophils/100 WBC (Bld) 48.5 % 47-70 [facility] Work Phone: [phone] Nucleated RBC/100 WBC (Bld) [Ratio] 0 % 0-5 [facility] Work Phone: [phone] MCHC Auto (RBC) [Mass/Vol]on 06-28-2021 MCHC (RBC) [Mass/Vol] 33.6 g/dL 32-36 [facility] Work Phone: [phone] No Panel Informationon 06-28 Estimated GFR (MDRD) Amer 123 mL/min >60 [facility] Work Phone: [phone] Comment on above: GFR Calc Estimated GFR (MDRD) Non-Af Amer 102 mL/min >60 [facility] Work Phone: Comment on above: Non- GFR Calc Platelets bldon 06-28-2021 Platelets (Bld) [#/Vol] 174 10*3/uL 150-450 [facility] Work Phone: [phone] Serum or plasma C reactive p rotein measurement (mass/volume)on 06-28-2021 CRP [Mass/Vol] mg/L 0.0-3.0 [facility] Work Phone: Comment on above: C-Reactive Protein ( CRP) provides useful information for thediagnosis, therapy and monitoring of inflammatory processesand associated diseases. For the evaluation of Relative Riskfor Cardiovascular Disease, a High Sensitivity CRP (HSCRP)should be ordered. Serum or plasma albumin jaycob urement (mass/volume)on 06-28-2021 Albumin [Mass/Vol] 3.5 g/dL 3.2-5.0 [facility] Work Phone: [phone] Serum or plasma creatinine m easurement (mass/volume)on 06-28-2021 Creatinine [Mass/Vol] 0.62 mg/dL 0.55-1.02 [facility] Work Phone: Comment on above: The validity of the calculated GFR & GFRAA in patients over 70 years has not been determined. Clinical correlation is essential. Serum or plasma urea nitroge n measurement (mass/volume)on 06-28-2021 Urea nitrogen [Mass/Vol] 22 mg/dL 7-18 [facility] Work Phone: [phone] Thin prep Papanicolaou smear with manual screeningon 06-28-2021 Thin prep Papanicolaou smear with manual screening 30 U/L 15-37 [facility] Work Phone: [phone] Absolute lymphocyte counton 06-04-2021 Lymphocytes Auto (Unsp spec) [#/Vol] 1.62 10*3/uL 0.83-4.51 [facility] Work Phone: [phone] Basophil percentageon 2020 Chloride [Moles/Vol] 107 mmol/L 98-107 [facility] Work Phone: Eosinophils/100 WBC (Bld) 3.6 % 0-5 [facility] Work Phone: Glucose [Mass/Vol] 118 mg/dL 74-106 [facility] Work Phone: Comment on above: Fasting Glucose resu lt from 100 to 125 mg/dL suggests IMPAIRED HOMEOSTASIS per A.D.A. criteria.Please note revised GLUCOSE reference range effective 2017. Neutrophils (Bld) [#/Vol] 3.1 10*3/uL 2.0-7.7 [facility] Work Phone: Potassium [Moles/Vol] 5.1 mmol/L 3.5-5.1 [facility] Work Phone: Comment on above: Moderate Hemolysis, Result may be falsely increased. Sodium [Moles/Vol] 139 mmol/L 136-145 [facility] Work Phone: WBC (Bld) [#/Vol] 5.8 10*3/uL 4.4-11.0 [facility] Work Phone: [phone] Blood erythrocytes count (nu mber/volume)on 06-04-2021 RBC (Bld) [#/Vol] 4.01 10*6/uL 4.2-5.4 [facility] Work Phone: Blood hemoglobin measurement (mass/volume)on 06-04-2021 Hemoglobin (Bld) [Mass/Vol] 12.6 g/dL 12.0-15.0 [facility] Work Phone: Blood lymphocytes/100 leukoc yteson 06-04-2021 Lymphocytes/100 WBC (Bld) 27.8 % 19-41 [facility] Work Phone: Blood monocytes/100 leukocyt eson 06-04-2021 Monocytes/100 WBC (Bld) 14.9 % 0-10 [facility] Work Phone: Blood platelet mean volumeon 06-04-2021 Platelet mean volume (Bld) [Entitic vol] 11.0 fL 6.2-12.0 [facility] Work Phone: [phone] Determination of erythrocyte mean corpuscular volume (MCV)on 06-04-2021 MCV (RBC) [Entitic vol] 94.3 fL 81-99 [facility] Work Phone: [phone] Hematocrit Auto (Bld) [Volum e fraction]on 06-04-2021 Hematocrit (Bld) [Volume fraction] 37.8 % 37-47 [facility] Work Phone: [phone] Laboratory - Chemistry and C hemistry - challengeon 06-04-2021 CO2 [Moles/Vol] 29.0 mmol/L 21.0-32.0 [facility] Work Phone: [phone] Urea nitrogen/Creatinine [Mass ratio] 27.9 mg/mg 10-20 [facility] Work Phone: [phone] Laboratory - Hematology and Cell countson 06-04-2021 Basophils/100 WBC (Unsp spec) 0.7 % 0-1 [facility] Work Phone: [phone] Erythrocyte distribution width (RBC) [Entitic vol] 49.2 fL 35.1-43.9 [facility] Work Phone: [phone] Erythrocyte distribution width (RBC) [Ratio] 14.3 % 11.6-14.6 [facility] Work Phone: [phone] Immature granulocytes/100 WBC (Bld) 0.300 % 0.0-0.9 [facility] Work Phone: [phone] Comment on above: IG% - Immature Granu locytes (promyelocytes, myelocytes and metamyelocytes) > 1% indicates that a LEFT SHIFT is Present. MCH (RBC) [Entitic mass] 31.4 pg 27.0-32.0 [facility] Work Phone: Neutrophils/100 WBC (Bld) 52.7 % 47-70 [facility] Work Phone: [phone] Nucleated RBC/100 WBC (Bld) [Ratio] 0 % 0-5 [facility] Work Phone: [phone] MCHC Auto (RBC) [Mass/Vol]on 06-04-2021 MCHC (RBC) [Mass/Vol] 33.3 g/dL 32-36 [facility] Work Phone: No Panel Informationon 06-04 Troponin I High Sensitivity 201 pg/mL 3.0-54.0 [facility] Work Phone: Comment on above: Critical Result(s) C alled at: 21:51:36 06/04/2021 by: Ella Perez to Mukesh Christensen2 Results read back by same. Please Note: New Test Units and Gender Specific Reference Ranges. For more information see Policy Stat Procedure [place] High Sensitivity Troponin (TNIH) and attachments. Estimated Creatinine Clearance Calc 41.76 ml/min [facility] Work Phone: Estimated GFR (MDRD) Amer 105 mL/min >60 [facility] Work Phone: Comment on above: GFR Calc Estimated GFR (MDRD) Non-Af Amer 87 mL/min >60 [facility] Work Phone: Comment on above: Non- GFR Calc Platelets bldon 06-04-2021 Platelets (Bld) [#/Vol] 153 10*3/uL 150-450 [facility] Work Phone: Serum or plasma calcium jaycob urement (mass/volume)on 06-04-2021 Calcium [Mass/Vol] 8.6 mg/dL 8.5-10.1 [facility] Work Phone: Serum or plasma creatinine m easurement (mass/volume)on 06-04-2021 Creatinine [Mass/Vol] 0.72 mg/dL 0.55-1.02 [facility] Work Phone: Comment on above: The validity of the calculated GFR & GFRAA in patients over 70 years has not been determined. Clinical correlation is essential. Serum or plasma urea nitroge n measurement (mass/volume)on 06-04-2021 Urea nitrogen [Mass/Vol] 20 mg/dL 7-18 [facility] Work Phone: [phone] Thin prep Papanicolaou smear with manual screeningon 12-06-2021 Thin prep Papanicolaou smear with manual screening 3 -15 [facility] Work Phone: CNCOon 07-14-2019 CNCO Letter Text Normal [facility] CNOVon 07-14-2019 CNOV Office Visit ([facility] ) CARLOS WILDER I ([id number]) 1955 F Date Time Provider Department 07/14/19 2:00 PM THERESA KRAFT [facility] During your visit today, we recorded the following information about you: Weight Height 58.3 kg 1.537 m Theresa Kraft MD 07/14/2019 3:09 PM Signed [facility] - Consult from Estephanie Dickson MD [address] [facility] [id number] A copy of this note will be sent either by routine mail, fax or electronic transmission. Chief Complaint: Chronic migraines in an RA patient History obtained from the patient HPI: She first had headaches until 7 years ago when she had them frequently. When they started she was off work for surgery and the headaches went away. When she later changed jobs they initially remitted The headaches now are 30/30 days Bifrontal and occipital pain Not worse with activity Untreated the pain would be 7-8 Throbbing at times Some light and sound sensitivity No nausea No auras Triggers: sleeping too long; sugar; no other foods The headaches can be related to neck movements especially with neck flexion No numbness or tenderness in the back Her daughter has migraines She was car sick as a child She treats the headaches with nothing OTC Just local therapy She is on opioids for the RA PRIOR TREATMENTS: Triptans: Imitrex Riza never worked Mehnaz Zolmi Ergots: none NSAIDS/Combination Analgesics: Naproxen none other work Antiemetics: none Opiates/Barbiturate s: Tylenol #3 does not help the headache Muscle Relaxers: Tizanidine did help a little for the neck Others: No nerve blocks PRIOR PREVENTIVES: AEDs: Topamax did not work Neurontin Antidepressants: Amitriptylyine 50mg helped Now at 100 Cymbalta did not help Anti-HTN: Propranolol did not help even with the amitriptyline Other Meds: Botox x 2 helped in the past and has taken it again Emgjohann Martinez did not help Current Medications: Current Outpatient Medications Medication Sig - amitriptyline (ELAVIL) 50 mg tablet Take 100 mg by mouth. - onabotulinum toxin type A (BOTOX) 100 unit solr Inject subcutaneously. - Flaxseed Oil oil - ibuprofen (MOTRIN) 800 mg tablet Take 800 mg by mouth every 6 hours as needed. - MAGNESIUM ORAL Take by mouth twice daily. umknown dose - Dextromethorphan-guai FENesin (MUCINEX DM) 60-1,200 mg tab ER 12 hr Take by mouth as needed. Every 12 hours - FISH OIL-DHA-EPA ORAL Take by mouth. Unknown dose - propranolol (INDERAL) 20 mg tablet Take 20 mg by mouth once daily. - - - acetaminophen-codeine (TYLENOL-CODEINE #3) 300-30 mg ORAL per tablet Take 1 tablet by mouth every 2 hours as needed. - etanercept(ENBREL 50 MG/ML (0.98 ML) SUB-Q SYRINGE) once a week - METHOTREXATE SODIUM 2.5 MG TAB take 4 tablets once weekly on Friday - OTC NUTRITIONAL SUPPLEMENT Calcium,960 Mg daily - GLUCOSAMINE 1500 COMPLEX 500 MG-400 MG CAP Take one(1) tablet two times daily. - FOLIC ACID 1 MG TAB Take one(1) tablet daily. - OTC NUTRITIONAL SUPPLEMENT multi-vitamin, Take one(1) tablet daily. - - diphenhydrAMINE (BENADRYL ALLERGY) 25 mg tablet Take 25 mg by mouth every 6 hours as needed. - - No current facility-administered medications for this visit. PDMP report July 13, 2019: Fill Date ID Written Drug Qty Days Prescriber Rx # Pharmacy Refill Daily Dose * Pymt Type AIR BAG BUFFER 04/30/2019 1 04/26/2019 Acetaminophen-Cod #3 Tablet 30.00 30 Da Sta [id number] Exp (4316) 0 4.50 [facility] [place] 03/05/2019 1 03/02/2019 Acetaminophen-Cod #3 Tablet 30.00 30 Da Sta [id number] Exp (4317) 0 4.50 [facility] [place] 01/28/2019 1 01/25/2019 Acetaminophen-Cod #3 Tablet 30.00 30 Da Sta [id number] Exp (4317) 0 4.50 [facility] [place] 01/13/2019 2 01/13/2019 Bsvmkx-Yvzjqlic-Muhe 50-325-40 20.00 5 Ja Bav [id number] [facility] (7357) 0 2.00 [facility] [place] 12/29/2018 1 12/24/2018 Acetaminophen-Cod #3 Tablet 30.00 30 Da Sta [id number] Exp (4317) 0 4.50 [facility] [place] 11/20/2018 1 11/16/2018 Acetaminophen-Cod #3 Tablet 30.00 30 Da Sta [id number] Exp (4317) 0 4.50 [facility] [place] 09/15/2018 1 09/09/2018 Acetaminophen-Cod #3 Tablet 30.00 30 Mi Via [id number] Exp (4317) 0 4.50 [facility] [place] 08/15/2018 1 08/12/2018 Acetaminophen-Cod #3 Tablet 30.00 30 PMHx: PAST MEDICAL HISTORY Diagnosis Date - Chronic headaches - Osteoarthrosis, unspecified whether generalized or localized, other specified sites - Other bursitis disorders left hip - Rheumatoid arthritis(714.0) ([facility]) 07/13/02 PAST SURGICAL HISTORY Procedure Laterality Date - APPENDECTOMY 1966 - BREAST BIOPSY CORE 1998, 2001 Left breast - FOOT SURGERY HX 06/2013 left foot - PAST SURGICAL HISTORY OF 06/2003 RT FOOT SURGERY - REMOVAL OF TONSILS,<12 Y/O 1960 Allergies: ALLERGIES Allergen Reactions - Lodine [Etodolac] Diarrhea FH: FAMILY HISTORY Problem Relation Age of Onset - Breast Cancer Maternal Aunt - other (Ovarian Cancer [Other]) Mother - Hypertension Father - other (Heart Disease [Other]) Father - Allergies Brother - Diabetes Father SH: Social History Tobacco Use - Smoking status: Never Smoker - Smokeless tobacco: Never Used Substance Use Topics - Alcohol use: No - Drug use: No REVIEW OF SYSTEMS: GENERAL: negative HEENT:No changes in hearing or vision, no nose bleeds or other nasal problems,Negative for frequent or significant headaches NECK:Negative for lumps, goiter, pain and significant neck swelling RESPIRATORY: Negative for cough, wheezing and shortness of breath CARDIOVASCULAR: Negative for chest pain, leg swelling and palpitations GASTROINTESTINAL: Negative for abdominal discomfort, blood in stools or black stools,change in bowel habits GENITOURINARY: Negative for dysuria, frequency and incontinence RADIO PERSONALITY: Negative for abnormal vaginal bleeding, abnormal vaginal discharge,breast symptoms MUSCULOSKELETAL: RA NEUROLOGIC:See HPI SKIN:Negative for lesions, rash, and itching. PSYCHIATRIC: Negative for sleep disturbance, mood disorder and recent psychosocial stressors. HEMATOLOGIC/LYMPHATIC /IMMUNOLOGIC:Negative for prolonged bleeding, bruising easily, and swollen nodes. ENDOCRINE: Negative for cold or heat intolerance, polyuria, polydipsia and goiter. PHYSICAL EXAM: Pulse 80 BP 120/80 Pain 10/07 currently HIT-6= HEADACHE SCORES: Headache Questions 07/14/2019 ID Migraine Screener: 1 (Negative) Migraine days per month: 30 ER visits in the last year: 0 Hospital stays in the last year: 0 Limited ADLs in the last month: 5 Days headache pain free in the last month: 0 PRN medication usage in the last month: 0 HIT-6 07/14/2019 HIT-6 67 (Severe impact) YULI - 2/7 SCORES 07/14/2019 YULI-2 Score 1 Migraine Specific QOL - Higher scores indicate better HRQL 07/14/2019 Role Function-Restrictive Transformed Score (range: 0-100) 45.71 Role Function-Preventive Transformed Score (range: 0-100) 75 Emotional Function Transformed Score (range: 0-100) 60 PHQ-9 07/14/2019 Score 6 Well looking. No craniocervical bruits. Neck supple with mild tenderness of the right and left occipital and suboccipital regions Torticollis Skin: No evidence of neurophakomatosis Chest: Clear to P and A. Heart: Normal S1, S2 without S3. no murmur Neurological Examination: Mental Status: Alert, attentive with normal fluent speech. Good recall of current and past events. No evidence of delusions or hallucinations. Cranial Nerves: II-XII intact including visual rosas and fundi. Spontaneous venous pulsations were clearly seen OU. Motor Examination: normal including gait, stressed gait, tandem gait, power and coordination. Reflexes: full and symmetric, with down going toe on right and equivocal on the left Sensation: intact to soft touch, pin and joint position sense. Radiology review none IMPRESSION: The headaches, which are chronic, may be probable migraines, as they do not exactly conform to ICHD criteria to a T, but they have other features mentioned above that are migrainous. She is also on opioids for RA and this may be creating a resistant case of chronic headaches. In the past the Botox worked and I agree with Dr Dickson to pursue this further. In addition I do not think she has a mechanical cause at the C1-C2 junction ( due to an RA pannus) as she does not have a lot of tenderness at these nerves. I gave her information and a script ( faxed in ) for Nerivio a TNS-like form of conditioned pain modulation, to abort acute attack ( [employer] PLAN:letter to Dr Dickson Total time spent: 80 min, >50% of which was spent in the presence of the patient for purposes of education and counseling regarding the diagnosis. treatment and prevention of pain. Theresa Kraft MD Referring Provider: ESTEPHANIE DICKSON [[id number]] Allergies As of Date: 07/14/2019 Noted Allergy Reaction LODINE (ETODOLAC) 07/13/2013 6 - Diarrhea Date Reviewed: 07/14/2019 Reviewed by: Judie North Ma - Fully Assessed Reason for Visit: New Patient [172] Primary Visit Diagnosis:Chronic daily headache [R51] Prescriptions as of 07/14/2019 Sig: AMITRIPTYLINE 50 MG TABLET Take 100 mg by mouth. BOTOX 100 UNIT INJECTION Inject subcutaneously. FLAXSEED OIL IBUPROFEN 800 MG TABLET Take 800 mg by mouth every 6 * MAGNESIUM ORAL Take by mouth twice daily. um* DEXTROMETHORPHAN-GUAI FENESIN * Take by mouth as needed. Ever* FISH OIL-DHA-EPA ORAL Take by mouth. Unknown dose PROPRANOLOL 20 MG TABLET Take 20 mg by mouth once vanessa* TIZANIDINE 2 MG CAPSULE Take 2 mg by mouth twice vanessa* ESTRADIOL 0.01% (0.1 MG/GRAM)* Use small amount at vaginal o* * ACETAMINOPHEN 300 MG-CODEINE * Take 1 tablet by mouth every * * ENBREL 50 MG/ML (1 ML) SUBCUT* once a week * METHOTREXATE SODIUM 2.5 MG TA* take 4 tablets once weekly on* * OTC NUTRITIONAL SUPPLEMENT Calcium,960 Mg daily * GLUCOSAMINE 1500 COMPLEX 500 * Take one(1) tablet two times * * FOLIC ACID 1 MG TABLET Take one(1) tablet daily. * OTC NUTRITIONAL SUPPLEMENT multi-vitamin, Take one(1) ta* DULOXETINE 30 MG CAPSULE,REYES* Take 30 mg by mouth once vanessa* DIPHENHYDRAMINE 25 MG TABLET Take 25 mg by mouth every 6 h* SERTRALINE 100 MG TABLET Take 100 mg by mouth once lex* METOCLOPRAMIDE ORAL Take by mouth as needed. Problem List As Of Date 07/14/2019 Noted Resolved DIFFUS CYSTIC MASTOPATHY [N60.19] 12/16/2005 Rheumatoid arthritis [M06.9] 06/04/2012 Osteopenia [M85.80] 06/04/2012 Postmenopausal atrophic vaginitis [N95.2] 11/15/2014 Encounter Status:Closed by THERESA KRAFT MD on 07/14/19 [facility] PROGRESSon 07-13-2019 PROGRESS HNO ID: [id number] Author: Theresa Kraft Service: ? Author Type: Physician Type: Progress Notes Filed: 07/14/2019 3:09 PM Note Text: Headache Center - Consult from Estephanie Dickson MD [address] [facility] [id number] A copy of this note will be sent either by routine mail, fax or electronic transmission. Chief Complaint: Chronic migraines in an RA patient History obtained from the patient HPI: She first had headaches until 7 years ago when she had them frequently. When they started she was off work for surgery and the headaches went away. When she later changed jobs they initially remitted The headaches now are 30/30 days Bifrontal and occipital pain Not worse with activity Untreated the pain would be 7-8 Throbbing at times Some light and sound sensitivity No nausea No auras Triggers: sleeping too long; sugar; no other foods The headaches can be related to neck movements especially with neck flexion No numbness or tenderness in the back Her daughter has migraines She was car sick as a child She treats the headaches with nothing OTC Just local therapy She is on opioids for the RA PRIOR TREATMENTS: Triptans: Imitrex Riza never worked Mehnaz Zolmi Ergots: none NSAIDS/Combination Analgesics: Naproxen none other work Antiemetics: none Opiates/Barbiturate s: Tylenol #3 does not help the headache Muscle Relaxers: Tizanidine did help a little for the neck Others: No nerve blocks PRIOR PREVENTIVES: AEDs: Topamax did not work Neurontin Antidepressants: Amitriptylyine 50mg helped Now at 100 Cymbalta did not help Anti-HTN: Propranolol did not help even with the amitriptyline Other Meds: Botox x 2 helped in the past and has taken it again Emgaltijone Martinez did not help Current Medications: Current Outpatient Medications Medication Sig - amitriptyline (ELAVIL) 50 mg tablet Take 100 mg by mouth. - onabotulinum toxin type A (BOTOX) 100 unit solr Inject subcutaneously. - Flaxseed Oil oil - ibuprofen (MOTRIN) 800 mg tablet Take 800 mg by mouth every 6 hours as needed. - MAGNESIUM ORAL Take by mouth twice daily. umknown dose - Dextromethorphan-guai FENesin (MUCINEX DM) 60-1,200 mg tab ER 12 hr Take by mouth as needed. Every 12 hours - FISH OIL-DHA-EPA ORAL Take by mouth. Unknown dose - propranolol (INDERAL) 20 mg tablet Take 20 mg by mouth once daily. - - - acetaminophen-codeine (TYLENOL-CODEINE #3) 300-30 mg ORAL per tablet Take 1 tablet by mouth every 2 hours as needed. - etanercept(ENBREL 50 MG/ML (0.98 ML) SUB-Q SYRINGE) once a week - METHOTREXATE SODIUM 2.5 MG TAB take 4 tablets once weekly on Friday - OTC NUTRITIONAL SUPPLEMENT Calcium,960 Mg daily - GLUCOSAMINE 1500 COMPLEX 500 MG-400 MG CAP Take one(1) tablet two times daily. - FOLIC ACID 1 MG TAB Take one(1) tablet daily. - OTC NUTRITIONAL SUPPLEMENT multi-vitamin, Take one(1) tablet daily. - - diphenhydrAMINE (BENADRYL ALLERGY) 25 mg tablet Take 25 mg by mouth every 6 hours as needed. - - No current facility-administered medications for this visit. PDMP report July 13, 2019: Fill Date ID Written Drug Qty Days Prescriber Rx # Pharmacy Refill Daily Dose * Pymt Type AIR BAG BUFFER 04/30/2019 1 04/26/2019 Acetaminophen-Cod #3 Tablet 30.00 30 Da Sta [id number] Exp (4317) 0 4.50 [place] [place] 03/05/2019 1 03/02/2019 Acetaminophen-Cod #3 Tablet 30.00 30 Da Sta [id number] Exp (4317) 0 4.50 [place] 01/28/2019 1 01/25/2019 Acetaminophen-Cod #3 Tablet 30.00 30 Da Sta [id number] Exp (4317) 0 4.50 [place] 01/13/2019 2 01/13/2019 Kumais-Hvkarpka-Rxpx 50-325-40 20.00 5 Ja Bav [id number] [facility] (7357) 0 2.00 [place] 12/29/2018 1 12/24/2018 Acetaminophen-Cod #3 Tablet 30.00 30 Da Sta [id number] Exp (4317) 0 4.50 [place] 11/20/2018 1 11/16/2018 Acetaminophen-Cod #3 Tablet 30.00 30 Da Sta [id number] Exp (4317) 0 4.50 [place] 09/15/2018 1 09/09/2018 Acetaminophen-Cod #3 Tablet 30.00 30 Mi Via [id number] Exp (4317) 0 4.50 [place] 08/15/2018 1 08/12/2018 Acetaminophen-Cod #3 Tablet 30.00 30 PMHx: PAST MEDICAL HISTORY Diagnosis Date - Chronic headaches - Osteoarthrosis, unspecified whether generalized or localized, other specified sites - Other bursitis disorders left hip - Rheumatoid arthritis(714.0) ([facility]) 07/13/02 PAST SURGICAL HISTORY Procedure Laterality Date - APPENDECTOMY 1965 - BREAST BIOPSY CORE 1998, 2001 Left breast - FOOT SURGERY HX 06/2013 left foot - PAST SURGICAL HISTORY OF 06/2003 RT FOOT SURGERY - REMOVAL OF TONSILS,<12 Y/O 1960 Allergies: ALLERGIES Allergen Reactions - Lodine [Etodolac] Diarrhea FH: FAMILY HISTORY Problem Relation Age of Onset - Breast Cancer Maternal Aunt - other (Ovarian Cancer [Other]) Mother - Hypertension Father - other (Heart Disease [Other]) Father - Allergies Brother - Diabetes Father SH: Social History Tobacco Use - Smoking status: Never Smoker - Smokeless tobacco: Never Used Substance Use Topics - Alcohol use: No - Drug use: No REVIEW OF SYSTEMS: GENERAL: negative HEENT:No changes in hearing or vision, no nose bleeds or other nasal problems,Negative for frequent or significant headaches NECK:Negative for lumps, goiter, pain and significant neck swelling RESPIRATORY: Negative for cough, wheezing and shortness of breath CARDIOVASCULAR: Negative for chest pain, leg swelling and palpitations GASTROINTESTINAL: Negative for abdominal discomfort, blood in stools or black stools,change in bowel habits GENITOURINARY: Negative for dysuria, frequency and incontinence RADIO PERSONALITY: Negative for abnormal vaginal bleeding, abnormal vaginal discharge,breast symptoms MUSCULOSKELETAL: RA NEUROLOGIC:See HPI SKIN:Negative for lesions, rash, and itching. PSYCHIATRIC: Negative for sleep disturbance, mood disorder and recent psychosocial stressors. HEMATOLOGIC/LYMPHATIC /IMMUNOLOGIC:Negative for prolonged bleeding, bruising easily, and swollen nodes. ENDOCRINE: Negative for cold or heat intolerance, polyuria, polydipsia and goiter. PHYSICAL EXAM: Pulse 80 BP 120/80 Pain 4/10 currently HIT-6= HEADACHE SCORES: Headache Questions 07/14/2019 ID Migraine Screener: 1 (Negative) Migraine days per month: 30 ER visits in the last year: 0 Hospital stays in the last year: 0 Limited ADLs in the last month: 5 Days headache pain free in the last month: 0 PRN medication usage in the last month: 0 HIT-6 07/14/2019 HIT-6 67 (Severe impact) YULI - 2/7 SCORES 07/14/2019 YULI-2 Score 1 Migraine Specific QOL - Higher scores indicate better HRQL 07/14/2019 Role Function-Restrictive Transformed Score (range: 0-100) 45.71 Role Function-Preventive Transformed Score (range: 0-100) 75 Emotional Function Transformed Score (range: 0-100) 60 PHQ-9 07/14/2019 Score 6 Well looking. No craniocervical bruits. Neck supple with mild tenderness of the right and left occipital and suboccipital regions Torticollis Skin: No evidence of neurophakomatosis Chest: Clear to P and A. Heart: Normal S1, S2 without S3. no murmur Neurological Examination: Mental Status: Alert, attentive with normal fluent speech. Good recall of current and past events. No evidence of delusions or hallucinations. Cranial Nerves: II-XII intact including visual rosas and fundi. Spontaneous venous pulsations were clearly seen OU. Motor Examination: normal including gait, stressed gait, tandem gait, power and coordination. Reflexes: full and symmetric, with down going toe on right and equivocal on the left Sensation: intact to soft touch, pin and joint position sense. Radiology review none IMPRESSION: The headaches, which are chronic, may be probable migraines, as they do not exactly conform to ICHD criteria to a T, but they have other features mentioned above that are migrainous. She is also on opioids for RA and this may be creating a resistant case of chronic headaches. In the past the Botox worked and I agree with Dr Dickson to pursue this further. In addition I do not think she has a mechanical cause at the C1-C2 junction ( due to an RA pannus) as she does not have a lot of tenderness at these nerves. I gave her information and a script ( faxed in ) for Nerivio a TNS-like form of conditioned pain modulation, to abort acute attack ( [employer] PLAN:letter to Dr Dickson Total time spent: 80 min, >50% of which was spent in the presence of the patient for purposes of education and counseling regarding the diagnosis. treatment and prevention of pain. Theresa Kraft MD [facility] Vital Signs Date Time Vital Sign Value Performing Clinician Facility 08-11-2024 10:51-0500 Body mass index (BMI) [Ratio] 25.55 kg/m2 Sara [employer] DO Work Phone: [facility] 08-11-2024 10:51-0500 Body weight 59.33 kg Sara [employer] DO Work Phone: [facility] 08-11-2024 10:51-0500 Diastolic blood pressure 83 mm[Hg] Sara [employer] DO Work Phone: [facility] 08-11-2024 10:51-0500 Heart rate 71 /min Sara [employer] DO Work Phone: [facility] 08-11-2024 10:51-0500 Systolic blood pressure 133 mm[Hg] Sara [employer] DO Work Phone: [facility] 09-05-2023 10:45-0500 Body mass index (BMI) [Ratio] 26.87 kg/m2 Sara [employer] DO Work Phone: [facility] 09-05-2023 10:45-0500 Body weight 62.41 kg Sara Falls DO Work Phone: [facility] 09-05-2023 10:45-0500 Diastolic blood pressure 79 mm[Hg] Sara Falls DO Work Phone: [facility] 09-05-2023 10:45-0500 Heart rate 69 /min Sara Falls DO Work Phone: [facility] 09-05-2023 10:45-0500 Systolic blood pressure 118 mm[Hg] Sara Falls DO Work Phone: [facility] 07-02-2023 09:12-0500 Body temperature 98.2 [degF] [facility] 07-02-2023 09:12-0500 Diastolic blood pressure 83 mm[Hg] [facility] 07-02-2023 09:12-0500 Heart rate 73 /min [facility] 07-02-2023 09:12-0500 SaO2% (BldA) [Mass fraction] 96 % [facility] 07-02-2023 09:12-0500 Systolic blood pressure 149 mm[Hg] [facility] 07-02-2023 09:06-0500 Body mass index (BMI) [Ratio] 25.97 kg/m2 [facility] 07-02-2023 09:06-0500 Body weight 60.33 kg [facility] 06-19-2023 09:48-0500 Body height 152.4 cm Bradford Hussein MD Work Phone: [facility] 06-19-2023 09:48-0500 Body mass index (BMI) [Ratio] 26.17 kg/m2 Bradford Hussein MD Work Phone: [facility] 06-19-2023 09:48-0500 Body temperature 98.2 [degF] Bradford Hussein MD Work Phone: [facility] 06-19-2023 09:48-0500 Body weight 60.78 kg Bradford Hussein MD Work Phone: [facility] 06-06-2023 13:05-0500 Body mass index (BMI) [Ratio] 27.3 kg/m2 Sara Falls DO Work Phone: [facility] 06-06-2023 13:05-0500 Body weight 63.41 kg Sara Falls DO Work Phone: [facility] 06-06-2023 13:05-0500 Diastolic blood pressure 84 mm[Hg] Sara Falls DO Work Phone: [facility] 06-06-2023 13:05-0500 Heart rate 69 /min Sara Falls DO Work Phone: [facility] 06-06-2023 13:05-0500 Systolic blood pressure 130 mm[Hg] Sara Falls DO Work Phone: [facility] 01-03-2023 11:06-0400 Body height 152.[address] Joanne Arnold Work Phone: [facility] 01-03-2023 11:06-0400 Body mass index (BMI) [Ratio] 26.4 kg/m2 Dr. Joanne Arnold Work Phone: [facility] 01-03-2023 11:06-0400 Body weight 61.[address] Joanne Arnold Work Phone: [facility] 01-03-2023 11:06-0400 Diastolic blood pressure 84 mm[Hg] Dr. Joanne Arnold Work Phone: [facility] 01-03-2023 11:06-0400 Heart rate 63 /min Dr. Joanne Arnold Work Phone: [facility] 01-03-2023 11:06-0400 Respiratory rate 18 /min Dr. Joanne Arnold Work Phone: [facility] 01-03-2023 11:06-0400 SaO2% (BldA) [Mass fraction] 99 % Dr. Joanne Arnold Work Phone: [facility] 01-03-2023 11:06-0400 Systolic blood pressure 130 mm[Hg] Dr. Joanne Arnold Work Phone: [facility] 10-17-2022 11:03-0400 Body height 152.4 cm Bradford Hussein MD Work Phone: [facility] 10-17-2022 11:03-0400 Body mass index (BMI) [Ratio] 26.76 kg/m2 Bradford Hussein MD Work Phone: [facility] 10-17-2022 11:03-0400 Body weight 62.14 kg Bradford Hussein MD Work Phone: [facility] 10-08-2022 09:55-0400 Body mass index (BMI) [Ratio] 27.15 kg/m2 Andrea Ewing MD Work Phone: [facility] 10-08-2022 09:55-0400 Body weight 63.05 kg Andrea Ewing MD Work Phone: [facility] 10-08-2022 09:55-0400 Diastolic blood pressure 85 mm[Hg] Andrea Ewing MD Work Phone: [facility] 10-08-2022 09:55-0400 Heart rate 71 /min Andrea Ewing MD Work Phone: [facility] 10-08-2022 09:55-0400 Systolic blood pressure 137 mm[Hg] Andrea Ewing MD Work Phone: [facility] 07-31-2022 09:37-0500 Body height 152.4 cm Ghanshyam Liu APRN-CARE GIVER Work Phone: [facility] 07-31-2022 09:37-0500 Body mass index (BMI) [Ratio] 26.76 kg/m2 Ghanshyam Liu APRN-CARE GIVER Work Phone: [facility] 07-31-2022 09:37-0500 Body temperature 96.6 [degF] Ghanshyam Liu APRN-CARE GIVER Work Phone: [facility] 07-31-2022 09:37-0500 Body weight 62.14 kg Ghanshyam Liu APRN-CARE GIVER Work Phone: [facility] 07-10-2022 11:29-0500 Body height 152.4 cm Ghanshyam Liu APRN-CARE GIVER Work Phone: [facility] 07-10-2022 11:29-0500 Body mass index (BMI) [Ratio] 26.76 kg/m2 Ghanshyam Liu APRN-CARE GIVER Work Phone: [facility] 07-10-2022 11:29-0500 Body temperature 98.1 [degF] Ghanshyam Liu APRN-CARE GIVER Work Phone: [facility] 07-10-2022 11:29-0500 Body weight 62.14 kg Ghanshyam Liu APRN-CARE GIVER Work Phone: [facility] 06-19-2022 07:45-0500 SaO2% (BldA) [Mass fraction] 97 % Bradford Hussein MD Work Phone: [facility] 06-19-2022 07:30-0500 Body temperature 98.8 [degF] Bradford Hussein MD Work Phone: [facility] 06-19-2022 07:30-0500 Diastolic blood pressure 59 mm[Hg] Bradford Hussein MD Work Phone: [facility] 06-19-2022 07:30-0500 Heart rate 74 /min Bradford Hussein MD Work Phone: [facility] 06-19-2022 07:30-0500 Respiratory rate 18 /min Bradford Hussein MD Work Phone: [facility] 06-19-2022 07:30-0500 Systolic blood pressure 103 mm[Hg] Bradford Hussein MD Work Phone: [facility] 06-19-2022 03:52-0500 Body mass index (BMI) [Ratio] 31.99 kg/m2 Bradford Hussein MD Work Phone: [facility] 06-19-2022 03:52-0500 Body weight 74.3 kg Bradford Hussein MD Work Phone: [facility] 06-18-2022 16:20-0500 Body height 152.4 cm Bradford Hussein MD Work Phone: [facility] 04-10-2022 14:45-0400 Body height 152.5 cm Bradford Hussein MD Work Phone: [facility] 04-10-2022 14:45-0400 Body mass index (BMI) [Ratio] 26.56 kg/m2 Bradford Hussein MD Work Phone: [facility] 04-10-2022 14:45-0400 Body temperature 96.8 [degF] Bradford Hussein MD Work Phone: [facility] 04-10-2022 14:45-0400 Body weight 61.78 kg Bradford Hussein MD Work Phone: [facility] 03-21-2022 10:17-0400 Body height 152.4 cm Michaela Alarcon MD Work Phone: [facility] 03-21-2022 10:17-0400 Body mass index (BMI) [Ratio] 26.17 kg/m2 Michaela Alarcon MD Work Phone: [facility] 03-21-2022 10:17-0400 Body weight 60.78 kg Michaela Alarcon MD Work Phone: [facility] 03-21-2022 10:17-0400 Diastolic blood pressure 86 mm[Hg] Michaela Alarcon MD Work Phone: [facility] 03-21-2022 10:17-0400 Heart rate 66 /min Michaela Alarcon MD Work Phone: [facility] 03-21-2022 10:17-0400 Respiratory rate 18 /min Michaela Alarcon MD Work Phone: [facility] 03-21-2022 10:17-0400 SaO2% (BldA) [Mass fraction] 95 % Michaela Alarcon MD Work Phone: [facility] 03-21-2022 10:17-0400 Systolic blood pressure 156 mm[Hg] Michaela Alarcon MD Work Phone: [facility] 03-08-2022 09:24-0400 Diastolic blood pressure 86 mm[Hg] Michaela Alarcon MD Work Phone: [facility] 03-08-2022 09:24-0400 Heart rate 58 /min Michaela Alarcon MD Work Phone: [facility] 03-08-2022 09:24-0400 Respiratory rate 18 /min Michaela Alarcon MD Work Phone: [facility] 03-08-2022 09:24-0400 SaO2% (BldA) [Mass fraction] 95 % Michaela Alarcon MD Work Phone: [facility] 03-08-2022 09:24-0400 Systolic blood pressure 145 mm[Hg] Michaela Alarcon MD Work Phone: [facility] 02-07-2022 14:25-0400 Body height 153.7 cm Michaela Alarcon MD Work Phone: [facility] 02-07-2022 14:25-0400 Body mass index (BMI) [Ratio] 25.74 kg/m2 Michaela Alarcon MD Work Phone: [facility] 02-07-2022 14:25-0400 Body weight 60.78 kg Michaela Alarcon MD Work Phone: [facility] 02-07-2022 14:25-0400 Diastolic blood pressure 69 mm[Hg] Michaela Alarcon MD Work Phone: [facility] 02-07-2022 14:25-0400 Heart rate 68 /min Michaela Alarcon MD Work Phone: [facility] 02-07-2022 14:25-0400 Respiratory rate 15 /min Michaela Alarcon MD Work Phone: [facility] 08-11-2022 14:25-0400 SaO2% (BldA) [Mass fraction] 94 % Michaela Alarcon MD Work Phone: [facility] 02-07-2022 14:25-0400 Systolic blood pressure 102 mm[Hg] Michaela Alarcon MD Work Phone: [facility] 11-27-2021 14:04-0400 Body mass index (BMI) [Ratio] 25.78 kg/m2 Andrea Ewing MD Work Phone: [facility] 11-27-2021 14:04-0400 Body weight 59.88 kg Andrea Ewing MD Work Phone: [facility] 11-27-2021 14:04-0400 Diastolic blood pressure 80 mm[Hg] Andrea Ewing MD Work Phone: [facility] 11-27-2021 14:04-0400 Heart rate 74 /min Andrea Ewing MD Work Phone: [facility] 11-27-2021 14:04-0400 Systolic blood pressure 123 mm[Hg] Andrea Ewing MD Work Phone: [facility] 08-09-2021 10:40-0500 Body height 152.[address] Joanne Arnold Work Phone: [facility] Work Phone: 08-09-2021 10:40-0500 Body mass index (BMI) [Ratio] 25.5 kg/m2 Dr. Joanne Arnold Work Phone: [facility] Work Phone: 08-09-2021 10:40-0500 Body weight 59.[address] Joanne Arnold Work Phone: [facility] Work Phone: 08-09-2021 10:40-0500 Diastolic blood pressure 87 mm[Hg] Dr. Joanne Arnold Work Phone: [facility] Work Phone: 08-09-2021 10:40-0500 Heart rate 60 /min Dr. Joanne Arnold Work Phone: [facility] Work Phone: 08-09-2021 10:40-0500 Respiratory rate 16 /min Dr. Joanne Arnold Work Phone: [facility] Work Phone: 08-09-2021 10:40-0500 Systolic blood pressure 142 mm[Hg] Dr. Joanne Arnold Work Phone: [facility] Work Phone: 06-05-2021 05:52-0500 Diastolic blood pressure 88 mm[Hg] Dr. Joanne Arnold Work Phone: [facility] Work Phone: 06-05-2021 05:52-0500 Heart rate 53 /min Dr. Joanne Arnold Work Phone: [facility] Work Phone: 06-05-2021 05:52-0500 Systolic blood pressure 164 mm[Hg] Dr. Joanne Arnold Work Phone: [facility] Work Phone: 06-05-2021 05:40-0500 Respiratory rate 14 /min Dr. Joanne Arnold Work Phone: [facility] Work Phone: 06-05-2021 05:40-0500 SaO2% (BldA) [Mass fraction] 95 % Dr. Joanne Arnold Work Phone: [facility] Work Phone: 06-05-2021 01:15-0500 Body temperature 97.7 [degF] Dr. Joanne Arnold Work Phone: [facility] Work Phone: 06-04-2021 19:13-0500 Body mass index (BMI) [Ratio] 25.7 kg/m2 Dr. Joanne Arnold Work Phone: [facility] Work Phone: 06-04-2021 19:13-0500 Body weight 59.[address] Joanne Arnold Work Phone: [facility] Work Phone: 03-04-2018 09:01-0400 BMI (Body Mass Index) 24.69 kg/m2 [facility] 03-04-2018 09:01-0400 BP Diastolic 83 mm[Hg] [facility] 03-04-2018 09:01-0400 BP Systolic 145 mm[Hg] [facility] 03-04-2018 09:01-0400 Pulse (Heart Rate) 70 /min [facility] 03-04-2018 09:01-0400 Weight 57.34 kg Gerardo [facility] 09-01-2017 10:10-0500 BMI (Body Mass Index) 24.94 kg/m2 [facility] 09-01-2017 10:10-0500 BP Diastolic 84 mm[Hg] [facility] 09-01-2017 10:10-0500 BP Systolic 145 mm[Hg] [facility] 09-01-2017 10:10-0500 Pulse (Heart Rate) 71 /min Gerardo [facility] 09-01-2017 10:10-0500 Weight 57.92 kg [facility] 05-01-2017 08:59-0400 BMI (Body Mass Index) 23.85 kg/m2 Gerardo Whipple [facility] Work Phone: 05-01-2017 08:59-0400 BP Diastolic 86 mm[Hg] [facility]: 05-01-2017 08:59-0400 BP Systolic 145 mm[Hg] [facility]: 05-01-2017 08:59-0400 Height 152.4 cm Gerardo Whipple [facility] Work Phone: 05-01-2017 08:59-0400 Pulse (Heart Rate) 79 /min Gerardo Whipple [facility] Work Phone: 05-01-2017 08:59-0400 Weight 55.38 kg Gerardo Whipple [facility] Work Phone: Encounters Encounter Date Encounter Type Care Provider Facility Start: 12-16-2024 ambulatory Cory Membreno Facility:[facility] Start: 10-27-2024 End: 10-27-2024 Refill Sara Granados DO Work Phone: [facility] Comment on above: Rheumatoid arthritis involving multiple sites with positive rheumatoid factor (HCC) Start: 10-26-2024 ambulatory JOANNE ARNOLD [facility] Start: 10-25-2024 End: 10-25-2024 ambulatory [facility] Facility:[facility] Start: 10-12-2024 End: 10-13-2024 Evaluation and management of inpatient 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 Joanne Arnold MD Work Phone: [facility] Work Phone: Start: 10-06-2024 End: 10-06-2024 Patient encounter procedure Cory Membreno BIOLOGICAL AIDE-C -Laboratory, [place] Work Phone: Start: 10-06-2024 End: 10-06-2024 ambulatory Cory Racine Facility:[facility] Start: 09-13-2024 End: 09-13-[address] MABLE SANTOS MD Facility:[facility] Start: 08-31-2024 End: 08-31-[address] Joanne Arnold MD Work Phone: [facility] Work Phone: Start: 08-31-2024 End: 08-31-[address] Sara Granados DO -Laboratory, [place] Work Phone: Start: 08-31-2024 End: 08-31-2024 ambulatory [facility] Facility:[facility] Start: 08-19-2024 End: 08-19-2024 Patient encounter procedure Melissa Ayala [facility] Work Phone: Start: 08-19-2024 End: 08-19-2024 ambulatory Daniela Carlos Facility:[facility] Start: 08-13-2024 ambulatory JOANNE ARNOLD [facility] Start: 08-11-2024 End: 08-11-2024 Office outpatient visit 25 minutes Sara Granados DO Work Phone: [facility] Comment on above: Osteoporosis with cu rrent pathological fracture with routine healing, unspecified osteoporosis type, subsequent encounter (Primary Dx); Disorder of bone, unspecified Start: 08-11-2024 End: 08-11-2024 ambulatory SARA LOBO [facility] Start: 08-10-2024 ambulatory SARA LOBO [facility] Start: 08-09-2024 [facility] Start: 08-06-2024 End: 08-06-[address] Sara Greenwood [place] Work Phone: Start: 08-06-2024 End: 08-06-2024 ambulatory Sara Granados Facility:[facility] Start: 08-04-2024 End: 08-04-2024 Orders Only Sara Granados DO Work Phone: [facility] Comment on above: Rheumatoid arthritis , involving unspecified site, unspecified whether rheumatoid factor present (HCC) (Primary Dx); 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, assisted, current use Start: 07-16-2024 End: 07-19-2024 Refill Sara Granados DO Work Phone: [facility] Comment on above: Rheumatoid arthritis (HCC) Rheumatoid arthritis involving multiple sites with positive rheumatoid factor (HCC); Rheumatoid arthritis (HCC) Start: 05-24-2024 End: 05-24-2024 Refill Sara Granados DO Work Phone: [facility] Start: 05-24-2024 End: 05-24-[address] Sara Greenwood [place] Work Phone: Start: 05-24-2024 End: 05-24-2024 ambulatory SARA GRANADOS [facility] Start: 05-05-2024 End: 05-06-2024 Refill Sara Granados DO Work Phone: [facility] Comment on above: Rheumatoid arthritis involving multiple sites with positive rheumatoid factor (HCC) Start: 04-15-2024 End: 04-15-2024 ambulatory Jorge Longpattre Facility:[facility] Start: 04-09-2024 End: 04-09-2024 ambulatory JOANNE ARNOLD [facility] Start: 04-02-2024 End: 04-02-2024 ambulatory Mable Julián Facility:[facility] Start: 03-19-2024 End: 03-19-2024 ambulatory Aftab Abrams [facility] Start: 03-19-2024 End: 03-19-[facility] Start: 02-26-2024 End: 02-26-2024 Refill Sara Granados DO Work Phone: [facility] Comment on above: Rheumatoid arthritis involving multiple sites with positive rheumatoid factor (HCC) Start: 02-26-2024 End: 02-26-2024 ambulatory Joanne Arnold Facility:[facility] Start: 02-24-2024 End: 02-24-2024 ambulatory JOANNE ARNOLD [facility] Start: 12-03-2023 End: 12-03-2023 Office outpatient visit 25 minutes Bradford Hussein MD Work Phone: [facility] Comment on above: Hip pain, unspecifie d laterality (Primary Dx) Start: 12-03-2023 End: 12-03-2023 Subsequent hospital visit by physician Bradford Hussein MD Work Phone: [facility] Start: 12-03-2023 ambulatory BRADFORD HUSSEIN [facility] Start: 11-18-2023 Refill Sara Lashell Granados DO Work Phone: [facility] Comment on above: Rheumatoid arthritis involving multiple sites with positive rheumatoid factor (HCC) Start: 11-17-2023 ambulatory JOANNE ARNOLD [facility] Start: 09-05-2023 End: 09-06-2023 ambulatory JOANNE LIN [facility] Start: 09-05-2023 End: 09-05-2023 Office outpatient visit 25 minutes Sara Granados DO Work Phone: [facility] Comment on above: Chronic pain of both shoulders (Primary Dx) Start: 08-27-2023 End: 08-27-2023 ambulatory [facility] Work Phone: Start: 08-27-2023 End: 08-27-2023 Patient encounter procedure [facility] [place] Work Phone: Start: 08-05-2023 Refill Sara Granados DO Work Phone: [facility] Comment on above: Rheumatoid arthritis involving multiple sites with positive rheumatoid factor (HCC) Start: 07-16-2023 End: 07-16-2023 ambulatory [facility] Work Phone: Start: 07-16-2023 End: 07-16-2023 Patient encounter procedure [facility] [place] Work Phone: Start: 07-15-2023 Orders Only Sara Granados DO Work Phone: [facility] Comment on above: High risk medication use (Primary Dx) Start: 07-02-2023 End: 07-02-2023 ambulatory Sara Granados DO Work Phone: [facility] Moving Picture Producer Comment on above: Osteoporosis with cu rrent pathological fracture with routine healing, unspecified osteoporosis type, subsequent encounter (Primary Dx) Start: 06-19-2023 End: 06-19-2023 Office outpatient visit 15 minutes Ghanshyam MAGANA Work Phone: [facility] Comment on above: Right hip pain (Prim maida Dx) Start: 06-19-2023 ambulatory BRADFORD HUSSEIN [facility] Start: 06-19-2023 End: 06-19-2023 Subsequent hospital visit by physician Bradford Hussein MD Work Phone: [facility] Start: 06-09-2023 Documentation procedure Ricky Judd LPN [facility] Start: 06-06-2023 End: 06-10-2023 ambulatory [facility] Start: 06-06-2023 End: 06-06-2023 Office outpatient visit 25 minutes Sara Granados DO Work Phone: [facility] Comment on above: Age-related osteopor osis without current pathological fracture (Primary Dx); Rheumatoid arthritis involving multiple sites with positive rheumatoid factor (HCC) Rheumatoid arthritis involving multiple sites with positive rheumatoid factor (HCC) (Primary Dx); Age-related osteoporosis without current pathological fracture Start: 05-08-2023 End: 05-12-2023 ambulatory [facility] Start: 03-31-2023 End: 04-04-2023 Refill Andrea Ewing MD Work Phone: [facility] Comment on above: Rheumatoid arthritis , involving unspecified site, unspecified whether rheumatoid factor present (HCC) Start: 02-18-2023 End: 02-18-[address] Joanne Arnold Work Phone: [facility] Work Phone: Start: 02-18-2023 End: 02-18-[address] Joanne Arnold Work Phone: [facility] Work Phone: Start: 02-10-2023 Refill Andrea Ewing MD Work Phone: [facility] Start: 01-07-2023 Refill Andrea Ewing MD Work Phone: [facility] Comment on above: Rheumatoid arthritis , involving unspecified site, unspecified whether rheumatoid factor present (HCC) Start: 01-03-2023 End: 01-03-[address] 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 Joanne Arnold Work Phone: [facility] Work Phone: Start: 10-17-2022 End: 10-17-2022 Office outpatient visit 15 minutes Bradford Hussein MD Work Phone: [facility] Comment on above: Hx of total hip arth roplasty, right (Primary Dx) Start: 10-17-2022 End: 10-17-2022 Subsequent hospital visit by physician Bradford Hussein MD Work Phone: [facility] Start: 10-08-2022 End: 10-08-2022 Office outpatient visit 40 minutes Andrea Ewing MD Work Phone: [facility] Comment on above: Rheumatoid arthritis involving multiple sites with positive rheumatoid factor (HCC) (Primary Dx); Rheumatoid arthritis, involving unspecified site, unspecified whether rheumatoid factor present (HCC); Age-related osteoporosis without current pathological fracture; USP methotrexate user; Long-term use of Plaquenil; Encounter for monitoring of etanercept therapy; Osteoarthritis, generalized Start: 10-04-2022 End: 10-08-2022 ambulatory [facility] Start: 08-21-2022 End: 08-21-2022 Office outpatient visit 25 minutes Andrea Ewing MD Work Phone: [facility] Comment on above: Rheumatoid arthritis involving multiple sites with positive rheumatoid factor (HCC) (Primary Dx); Osteoarthritis of cervical spine, unspecified spinal osteoarthritis complication status; 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; Encounter for monitoring of etanercept therapy; Long-term use of Plaquenil; Age-related osteoporosis without current pathological fracture Start: 08-09-2022 Tod Judd DEVOPS ARCHITECT [facility] Comment on above: Rheumatoid arthritis (HCC) Start: 07-31-2022 End: 07-31-2022 Postop follow up visit related to original px Ghanshyam Liu CHEESE WRAPPER-CARE GIVER Work Phone: [facility] Comment on above: Hx of total hip arth roplasty, right (Primary Dx) Start: 07-20-2022 Refill Aftab Love MD Work Phone: [facility] Comment on above: Rheumatoid arthritis , involving unspecified site, unspecified whether rheumatoid factor present (HCC) Start: 07-19-2022 Orders Only Andrea Ewing MD Work Phone: [facility] Comment on above: Rheumatoid arthritis involving multiple sites with positive rheumatoid factor (HCC) (Primary Dx); 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 Rheumatoid arthritis , involving unspecified site, unspecified whether rheumatoid factor present (HCC) Start: 07-10-2022 End: 07-10-2022 Postop follow up visit related to original px Ghanshyam Liu CHEESE WRAPPER-CARE GIVER Work Phone: [facility] Comment on above: Hx of total hip arth roplasty, right (Primary Dx) Start: 07-10-2022 End: 07-10-2022 Subsequent hospital visit by physician Ghanshyam Liu APRN-CARE GIVER Work Phone: [facility] Start: 06-18-2022 End: 06-19-2022 Patient encounter status Bradford Hussein MD Work Phone: [facility] Start: 06-18-2022 End: 06-19-2022 Subsequent hospital visit by physician Bradford Hussein MD Work Phone: [facility] Comment on above: Primary osteoarthrit is of one hip, right Start: 06-05-2022 End: 06-06-2022 ambulatory MUKESH RAMIREZ DO Facility:[facility] Start: 06-05-2022 End: 06-05-2022 Patient encounter procedure MUKESH RAMIREZ DO [facility] Start: 05-31-2022 End: 05-31-2022 ambulatory [facility] Work Phone: Start: 05-31-2022 End: 05-31-2022 Patient encounter procedure [facility] Start: 04-30-2022 ambulatory [facility] Start: 04-15-2022 ambulatory MICHAELA MARCOSMA [facility] Start: 04-10-2022 End: 04-10-2022 Office outpatient new 60 minutes Bradford Hussein MD Work Phone: [facility] Comment on above: Right hip pain (Prim maida Dx) Start: 03-21-2022 End: 03-21-2022 Office outpatient visit 25 minutes Michaela Alarcon MD Work Phone: [facility] Comment on above: Primary osteoarthrit is of right hip (Primary Dx); Chronic right hip pain; Cervical spondylosis without myelopathy; Migraine without status migrainosus, not intractable, unspecified migraine type; Rheumatoid arthritis, involving unspecified site, unspecified whether rheumatoid factor present Start: 03-14-2022 Refill Aftab Love MD Work Phone: [facility] Comment on above: Rheumatoid arthritis , involving unspecified site, unspecified whether rheumatoid factor present (HCC) Start: 03-08-2022 ambulatory [facility] Start: 03-08-2022 End: 03-08-2022 Patient encounter procedure Michaela Alarcon MD Work Phone: [facility] Comment on above: Primary osteoarthrit is of right hip (Primary Dx) Start: 03-08-2022 End: 03-08-2022 Subsequent hospital visit by physician Michaela Alarcon MD Work Phone: [facility] Comment on above: Arrived Start: 02-11-2022 End: 02-11-2022 ambulatory Andrea Ewing MD Work Phone: [facility] Comment on above: Right hip pain (Prim maida Dx); Osteoarthritis of cervical spine with myelopathy; Bilateral occipital neuralgia Start: 02-07-2022 End: 02-07-2022 Office outpatient new 45 minutes Michaela Alarcon MD Work Phone: [facility] Comment on above: Cervical spondylosis without myelopathy (Primary Dx); Primary osteoarthritis of right hip; Migraine without status migrainosus, not intractable, unspecified migraine type Start: 02-06-2022 End: 02-06-2022 ambulatory Andrea Ewing MD Work Phone: [facility] Comment on above: Right hip pain (Prim maida Dx); Osteoarthritis of cervical spine with myelopathy; Bilateral occipital neuralgia Start: 2022 End: 2022 ambulatory Andrea Ewing MD Work Phone: [facility] Comment on above: Right hip pain (Prim maida Dx); Osteoarthritis of cervical spine with myelopathy; Bilateral occipital neuralgia Start: 01-28-2022 End: 01-28-2022 ambulatory Andrea Ewing MD Work Phone: [facility] Comment on above: Right hip pain (Prim maida Dx); Osteoarthritis of cervical spine with myelopathy; Bilateral occipital neuralgia Start: 01-23-2022 End: 01-23-2022 ambulatory Andrea Ewing MD Work Phone: [facility] Comment on above: Right hip pain (Prim maida Dx); Osteoarthritis of cervical spine with myelopathy; Bilateral occipital neuralgia Start: 01-21-2022 End: 01-21-2022 ambulatory Andrea Ewing MD Work Phone: [facility] Comment on above: Right hip pain (Prim maida Dx); Osteoarthritis of cervical spine with myelopathy; Bilateral occipital neuralgia Start: 01-16-2022 End: 01-16-2022 ambulatory Andrea Ewing MD Work Phone: [facility] Comment on above: Right hip pain (Prim maida Dx); Osteoarthritis of cervical spine with myelopathy; Bilateral occipital neuralgia Start: 01-14-2022 End: 01-14-2022 ambulatory Andrea Ewing MD Work Phone: [facility] Comment on above: Right hip pain (Prim maida Dx); Osteoarthritis of cervical spine with myelopathy; Bilateral occipital neuralgia Start: 01-09-2022 End: 01-09-2022 ambulatory Andrea Ewing MD Work Phone: [facility] Comment on above: Right hip pain (Prim maida Dx); Osteoarthritis of cervical spine with myelopathy; Bilateral occipital neuralgia Start: 12-25-2021 End: 12-25-2021 Phys/qhp telephone evaluation 21-30 min Andrea Ewing MD Work Phone: [facility] Comment on above: Rheumatoid arthritis involving multiple sites with positive rheumatoid factor (HCC) (Primary Dx); Bilateral occipital neuralgia; Right hip pain; Osteoarthritis of cervical spine with myelopathy Start: 12-17-2021 Refill Andrea Ewing MD Work Phone: [facility] Comment on above: Rheumatoid arthritis , involving unspecified site, unspecified whether rheumatoid factor present (HCC) Start: 12-03-2021 Refill Gerardo Whipple MD [facility] Comment on above: Rheumatoid arthritis , involving unspecified site, unspecified rheumatoid factor presence Start: 11-27-2021 End: 11-27-2021 Office outpatient visit 40 minutes Andrea Ewing MD Work Phone: [facility] Comment on above: Rheumatoid arthritis involving multiple sites with positive rheumatoid factor (HCC) (Primary Dx); Trochanteric bursitis of both hips; Age-related osteoporosis without current pathological fracture; Encounter for monitoring of methotrexate therapy; Encounter for monitoring of hydroxychloroquine therapy; Osteoarthritis, unspecified osteoarthritis type, unspecified site Start: 11-15-2021 End: 11-15-2021 Phys/qhp telephone evaluation 21-30 min Andrea Ewing MD Work Phone: [facility] Comment on above: Rheumatoid arthritis involving multiple sites with positive rheumatoid factor (HCC) (Primary Dx); 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 Joanne Arnold Work Phone: [facility]Ul[facility]ound, [facility] Start: 09-18-2021 End: 09-27-[address] Joanne Arnold [facility] Start: 09-06-2021 Non-patient / Non-visit Dr. Erika Arnold Work Phone: [facility] Start: 09-06-2021 End: 09-06-[address] Joanne Arnold Work Phone: [facility]Cardiovasc[facility] Start: 08-14-2021 End: 08-14-[address] Joanne Arnold Work Phone[facility] Start: 08-09-2021 End: 08-09-[address] Joanne Arnold Work Phone: [facility] Start: 07-27-2021 End: 07-27-[address] Joanne Arnold Work Phone: [facility]-MRI - [facility] Start: 07-19-2021 End: 07-19-[address] Joanne Arnold Work Phone: [facility]-Cat Scan, [facility] Start: 07-18-2021 End: 07-18-[address] Joanne Arnold Work Phone[facility] Start: 07-13-2021 End: 07-13-[address] Joanne Arnold Work Phone: [facility] Start: 06-28-[address] Krystyna Arnold Work Phone: [facility], [place] Start: 06-05-2021 Non-patient / Non-visit Dr. Erika Arnold Work Phone: [facility] Start: 06-05-2021 Non-patient / Non-visit Dr. Erika Arnold Work Phone: [facility] Start: 06-04-2021 Non-patient / Non-visit Dr. Erika Arnold Work Phone: [facility] Start: 06-04-2021 End: 06-05-2021 Evaluation and management of inpatient Dr. Joanne Arnold Work Phone: [facility]Progressive Care Unit Start: 08-24-2020 End: 08-24-2020 Orders Only Deandra Goddard Work Phone: [facility] Start: 09-15-2019 End: 09-15-2019 Documentation procedure Ricky Judd [facility] Start: 07-27-2019 End: 07-27-2019 Documentation procedure Ricky Judd [facility] Start: 03-04-2018 End: 03-04-2018 Office outpatient visit 15 minutes Gerardo Whipple Work Phone: [facility] Comment on above: Rheumatoid arthritis , involving unspecified site, unspecified rheumatoid factor presence (HCC) (Primary Dx); Primary osteoarthritis of both hands Start: 11-25-2017 Ambulatory Gerardo Whipple Work Phone: [facility] Start: 09-01-2017 Office/outpatient vi sit, est, level 3 Gerardo Whipple Work Phone: [facility] Start: 06-02-2017 Ambulatory Gerardo Whipple Work Phone: [facility] Start: 05-01-2017 Office outpatient vi sit 15 minutes Gerardo Whipple Work Phone: [facility] Start: 01-06-2017 Ambulatory Sebastian Felder Facili ty:[place] Procedures Date Procedure Procedure Detail Performing Clinician Start: 08-19-2024 CT of upper limb wit hout contrast Dr. Joanne Arnold MD Work Phone: Start: 09-05-2023 Arthrocentesis aspir &/inj major jt/bursa w/o us Sara Concepcione Darwin DO Work Phone: Start: 07-02-2023 Creatinine blood Sara C atherscott Granados DO Work Phone: Start: 02-18-2023 Radiography of thora cic spine Dr. Joanne Arnold Work Phone: Start: 02-18-2023 X-ray of lumbar spin e, two or three views Dr. Joanne Arnold Work Phone: Start: 11-07-2022 Screening mammography Marc Arnold Work Phone: Start: 06-19-2022 Complete blood count with white cell differential, automated Ghanshyam Liu APRN-CARE GIVER Work Phone: Start: 06-18-2022 Blood count hematocrit Rohini Jones Work Phone: Start: 06-18-2022 Blood count hematocrit Rohini Jones Work Phone: Start: 06-18-2022 Gluc bld gluc mntr d ev cleared fda spec home use Bradford Hussein MD Work Phone: Start: 06-18-2022 Radiologic examinati on pelvis 1/2 views Ghanshyam Liu APRN-CARE GIVER Work Phone: Start: 06-18-2022 End: 06-18-2022 Arthrp acetblr/prox fem prostc agrft/algrft Bradford Hussein MD Work Phone: Start: 06-18-2022 Blood group typing, RH phenotyping Bradford Hussein MD Work Phone: Start: 03-08-2022 LARGE JOINT/BURSA IN JECTION AND/OR ASPIRATION Michaela Alarcon MD Work Phone: Start: 11-27-2021 End: 11-27-2021 Arthrocentesis aspir&/inj major jt/bursa w/o us Andrea Ewing MD Work Phone: Start: 09-27-[address] Joanne Arnold Work Phone: Start: 09-06-2021 End: 09-06-2021 Screening mammography of bilateral breasts Dr. Joanne Arnold Work Phone: Start: 08-14-2021 Plain chest X-ray Dr. Darwin Arnold Work Phone: Start: 07-27-2021 MRI of brain with contrast Dr. Joanne Arnold Work Phone: Start: 07-19-2021 CT of thorax with contrast Dr. Joanne Arnold Work Phone: Start: 07-18-[address] Joanne josé Work Phone: Start: 07-18-2021 Plain chest X-ray Dr. Darwin Arnold Work Phone: Start: 06-04-2021 Plain chest X-ray Dr. Darwin Arnold Work Phone: Start: 08-22-2011 Colonoscopy Sara Granados DO Work Phone: Plan of Treatment Date Care Activity Detail Author Start: 02-08-2025 End: 02-08-2025 Patient encounter procedure 02/08/2025 10:30 AM EDT Office Visit [facility] [address] [place] [address] [place] [address] Sara Granados DO [address] [place] [phone] [facility] Start: 08-11-2024 End: 08-11-2024 Patient encounter procedure 08/11/2024 10:50 AM EST Office Visit [facility] [address] [place] [address] [place] [address] Sara Granados DO [address] [place] [phone] [facility] Start: 04-09-2024 End: 04-09-2024 Patient encounter procedure 04/09/2024 10:15 AM EDT Office Visit [facility] [address] [place] [address] [place] [address] Sara Granados DO [address] [place] [phone] [facility] Start: 03-09-2024 End: 03-09-2024 Patient encounter procedure 03/09/2024 9:15 AM EDT Office Visit [facility] [address] [place] [phone] Sara Granados DO [address] [place] [phone] [facility] Start: 02-29-2024 COVID-19 Vaccine ( season) COVID-19 Vaccine ( season) [facility] Start: 02-29-2024 Influenza vaccination Influenza Vacc ine (#1) [facility] Start: 10-08-2023 End: 10-08-2023 Patient encounter procedure 10/08/2023 8:30 AM EDT Office Visit [facility] [address] [place] [address] [place] [phone] Andrea Ewing MD [address] [place] [phone] [facility] Start: 09-05-2023 End: 09-05-2023 Patient encounter procedure 09/05/2023 10:45 AM EST Office Visit [facility] [address] [place] [address] [place] [phone] Sara Granados DO [address] [place] [phone] [facility] Start: 07-02-2023 End: 07-02-2023 ambulatory 07/02/2023 9:00 AM EST Infusion/Injection [facility] Moving [employer] [address] [place] [phone] [facility] Moving Picture [employer] Start: 06-18-2023 End: 06-18-2023 Patient encounter procedure 06/18/2023 Office Visit Orthopaedics Ghanshyam Liu, CHEESE WRAPPER-CARE GIVER [address] [place] [address] [facility] Start: 02-28-2023 COVID-19 VACCINE ( season) COVID-19 VACCINE ( season) [facility] Start: 02-28-2023 Influenza vaccination Sequenti al Influenza Vaccine (#1) [facility] Start: 10-17-2022 End: 10-17-2022 Patient encounter procedure 10/17/2022 Office Visit Orthopaedics Bradford Hussein MD [address] [place] [address] [facility] Start: 09-06-2022 Screening for malign ant neoplasm of breast Mammogram [facility] Start: 08-29-2022 Tetanus vaccination [facility] Start: 08-21-2022 End: 08-21-2022 Patient encounter procedure 08/21/2022 Office Visit Orthopedic Surgery Andrea Ewing MD [address] [place] [address] [facility] Start: 07-31-2022 End: 07-31-2022 Patient encounter procedure 07/31/2022 Office Visit Orthopaedics Ghanshyam Liu, CHEESE WRAPPER-CARE GIVER [address] [facility] [place] [address] [facility] Start: 07-10-2022 End: 07-10-2022 Patient encounter procedure 07/10/2022 Office Visit Orthopaedics Ghanshyam Liu, CHEESE WRAPPER-CARE GIVER [address] [facility] [place] [address] [facility] Start: 05-02-2022 End: 05-02-2022 Patient encounter procedure 05/02/2022 Office Visit Anesthesiology Pain Michaela Lyle MD [address] [place] [address] [facility] Start: 04-30-2022 End: 04-30-2022 Patient encounter procedure 04/30/2022 Office Visit Anesthesiology Pain Michaela Lyle MD [address] [place] [address] [facility] Pain Management Start: 04-25-2022 End: 04-25-2022 ambulatory 04/25/2022 Pre-Operative Nurse Assessment Internal Medicine [facility] Start: 04-18-2022 End: 04-18-2022 Patient encounter procedure 04/18/2022 Office Visit Anesthesiology Pain Michaela Lyle MD [address] [place] [address] [facility] Start: 04-15-2022 End: 04-15-2022 Patient encounter procedure 04/15/2022 Office Visit Anesthesiology Pain Michaela Lyle MD [address] [place] [address] [facility] Start: 03-21-2022 End: 03-21-2022 Patient encounter procedure 03/21/2022 Office Visit Anesthesiology Pain Mgt Michaela Alarcon MD [address] [place] [address] [facility] Start: 03-08-2022 End: 03-08-2023 Fluoroscopy guided nasogastric tube procedure [facility] Comment on above: Expected: 03/08/2022 , Expires: 03/08/2023 1 Occurrences starti ng 03/08/2022 until 03/08/2022 Start: 03-08-2022 End: 03-08-2022 Patient encounter procedure 03/08/2022 Office Visit Anesthesiology Pain Mgt Michaela Alarcon MD [address] [place] [address] [facility] Procedural Pain Management Start: 02-28-2022 Influenza vaccination [facility] Start: 02-11-2022 End: 02-11-2022 ambulatory 02/11/2022 Treatment Rehabilitation Andrea Ewing MD [address] [place] [address] Aftab Aldridge, PT [facility] Start: 02-06-2022 End: 02-06-2022 ambulatory 02/06/2022 Treatment Rehabilitation Andrea Ewing MD [address] [place] [address] Rozina Gordillo, CLOTH WORKER [facility] Start: 02-04-2022 End: 02-04-2022 ambulatory [facility] Start: 2022 End: 2022 ambulatory [facility] Start: 01-28-2022 End: 01-28-2022 ambulatory 01/28/2022 Treatment Rehabilitation [facility] [address] [facility] [place] [address] Aftab Aldridge, PT [facility] Start: 01-23-2022 End: 01-23-2022 ambulatory 01/23/2022 Treatment Rehabilitation Andrea Ewing MD [address] [place] [address] Rozina Gordillo [facility] Start: 01-21-2022 End: 01-21-2022 ambulatory 01/21/2022 Treatment Rehabilitation [facility] Ewing [facility] [address] [facility] [place] [address] Rozina Gordillo [facility] Start: 01-16-2022 End: 01-16-2022 ambulatory 01/16/2022 Treatment Rehabilitation Andrea Ewing MD [address] [facility] [place] [address] Rozina Gordillo [facility] Start: 01-14-2022 End: 01-14-2022 ambulatory 01/14/2022 Treatment Rehabilitation Andrea Ewing MD [address] [facility] [place] [address] Rozina Gordillo [facility] Start: 12-25-2021 Administration of [facility] zoster vaccine Zoster Vaccines (2 of 2) [facility] Start: 12-25-2021 End: 12-25-2021 Telemedicine consultation with patient 12/25/2021 Telemedicine Telephone Orthopedic Surgery Andrea Ewing MD [address] [facility] [place] [address] [facility] Start: 12-07-2021 End: 12-07-2021 Patient encounter procedure 12/07/2021 Appointment Radiology Andrea Ewing MD [address] [facility] [place] [address] [facility] Start: 12-06-2021 COVID-19 VACCINE (3 - Booster for Pfizer series) COVID-19 VACCINE (3 - Booster for Pfizer series) [facility] Start: 11-27-2021 End: 11-27-2021 Patient encounter procedure 11/27/2021 Office Visit Orthopedic Surgery Andrea Ewing MD [address] [place] [address] [facility] Start: 09-02-2021 COVID-19 VACCINE (3 - Booster for Pfizer series) COVID-19 VACCINE (3 - Booster for Pfizer series) [facility] Start: 08-22-2021 Screening for malign ant neoplasm of colon [facility] Start: 08-05-2021 COVID-19 Vaccine (3 - Pfizer risk series) COVID-19 Vaccine (3 - Pfizer risk series) [facility] Start: 02-29-2020 Influenza vaccinatio n given Sequential Influenza Vaccine (#1) [facility] Start: 01-31-2020 Fall risk assessment Falls Risk Asse ssment [facility] Start: 01-31-2020 Pneumococcal vaccination [facility] Start: 09-23-2019 End: 09-23-2019 Office Visit 09/23/2019 Office Visit Orthopedic Surgery Gerardo Whipple MD [address] [place] [address] [phone] [facility] Start: 02-28-2019 Influenza vaccinatio n given SEQUENTIAL INFLUENZA VACCINE (#1) [facility] Start: 09-02-2018 End: 09-02-2018 Ambulatory 09/02/2018 Office Visit Orthopedic Surgery Gerardo Whipple MD [address] [place] [address] [phone] [facility] Start: 03-04-2018 End: 03-04-2018 Ambulatory 03/04/2018 Office Visit Orthopedic Surgery Gerardo Whipple MD [address] [place] [address] [phone] [facility] Start: 02-28-2018 Influenza vaccination [facility] Start: 08-28-2017 Ambulatory 08/28/2017 Off ice Visit Orthopedic Surgery Gerardo Whipple MD [address] [place], [place] [address] [phone] [facility] Start: 03-08-2017 Screening for malign ant neoplasm of colon [facility] Start: 03-07-2017 Screening for malign ant neoplasm of colon Fecal occult blood test (FOBT,FIT) [facility] Start: 02-28-2017 Influenza vaccination SEQUENTI AL INFLUENZA VACCINE (#1) [facility] Work Phone: Start: 2015 Respiratory Syncytia l Virus Immunization: Risk, 60-74 Risk, or 75+ (1 - Risk 60-74 years 1-dose series) Respiratory Syncytial Virus Immunization: Risk, 60-74 Risk, or 75+ (1 - Risk 60-74 years 1-dose series) [facility] Start: 2015 Zoster vacc, sc ZOSTER VACCINE [facility] Work Phone: Start: 08-22-2012 Screening for malign ant neoplasm of colon COLORECTAL CANCER SCREENING DISCUSSION [facility] Start: 2005 Administration of he rpes zoster vaccine Zoster Vaccines (1 of 2) [facility] Start: 2005 Screening for malign ant neoplasm of colon [facility] Start: 2005 Zoster vaccine hzv l gisell for subcutaneous use ZOSTER (SHINGLES) VACCINE (1 of 2) [facility] Start: 2005 ZOSTER VACCINES (1 of 2) ZOSTE R VACCINES (1 of 2) [facility] Start: 01-31-2000 Colonoscopy COLORECTAL CAN CER SCREENING DISCUSSION [facility] Start: 01-31-2000 Screening for malign ant neoplasm of colon COLORECTAL CANCER SCREENING DISCUSSION [facility] Start: 1995 Fasting lipid profile LIPID SCREENIN G [facility] Start: 1995 Lipid panel LIPID SCREENING [facility] Start: 1995 Screening for malign ant neoplasm of breast MAMMOGRAM SCREENING DISCUSSION [facility] Start: 1995 Screening mammography MAMMOGRA M SCREENING DISCUSSION [facility] Start: 01-31-1976 Screening for malign ant neoplasm of cervix CERVICAL CANCER SCREENING DISCUSSION [facility] Start: 1974 Third diphtheria, te tanus and acellular pertussis (DTaP) vaccination TDAP (ADULT) [facility] Start: 1973 Tetanus vaccination TETANUS [facility] Start: 1971 COVID-19 Vaccine (1 of 2) COVI D-19 Vaccine (1 of 2) [facility] Start: 1970 HIV screening HIV Screening [facility] Start: 1967 Adolescent depressio n screening assessment Depression Screening (PHQ9) [facility] Start: 1967 Depression screening using PHQ-9 (Patient Health Questionnaire 9) score [facility] Start: 1958 History and physical examination, annual for health maintenance Wellness Visit [facility] Start: 1958 Medicare Wellness Visit Medicare Wel lness Visit [facility] Start: 1955 Fall risk assessment Falls Risk Asse ssment [facility] Start: 1955 Hepatitis B vaccination HEP B VACCINE (1 of 3 - 3-dose series) [facility] Start: 1955 Hepatitis C antibody , confirmatory test HEPATITIS C VIRUS SCREENING [facility] Start: 1955 Hepatitis C screening HEPATITI S C VIRUS SCREENING [facility] Start: 1955 Screening for malign ant neoplasm of colon [facility] Start: 1955 Screening for osteoporosis [facility] Start: 1955 Screening mammography Mammogram [facility] Start: 1955 Screening colonoscopy COLONOSCOPY [facility] Work Phone: Start: 1955 End: 1955 Screening for malignant neoplasm of cervix PAP SMEAR [facility] Work Phone: Start: 1955 Tetanus vaccination TETANUS EVERY 10 YR [facility] Work Phone: End: 07-19-2023 Alanine aminotransferase [Enzymatic activity/volume] in Serum or Plasma ALT Lab Routine Rheumatoid arthritis involving multiple sites with positive rheumatoid factor (HCC) 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 every 3 months for 2 Occurrences starting 07/19/2022 until 07/19/2023 [facility] Work Phone: Comment on above: every 3 months for 2 Occurrences starting 07/19/2022 until 07/19/2023 End: 12-31-2023 Alanine aminotransferase [Enzymatic activity/volume] in Serum or Plasma ALT Lab Routine Rheumatoid arthritis involving multiple sites with positive rheumatoid factor (HCC) 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 EVERY 3 MONTHS for 2 Occurrences starting 12/30/2022 until 12/31/2023 [facility] Work Phone: Comment on above: EVERY 3 MONTHS for 2 Occurrences starting 12/30/2022 until 12/31/2023 End: 11-15-2022 DANNIE measurement DANNIE Lab Routine H/O blood clots 1 Occurrences starting 11/15/2021 until 11/15/2022 [facility] Comment on above: 1 Occurrences starti ng 11/15/2021 until 11/15/2022 End: 11-15-2022 Anti-cyclic citrullinated peptide antibody level CCP Antibody Lab Routine Rheumatoid arthritis involving multiple sites with positive rheumatoid factor (HCC) 1 Occurrences starting 11/15/2021 until 11/15/2022 [facility] Comment on above: 1 Occurrences starti ng 11/15/2021 until 11/15/2022 End: 07-19-2023 Aspartate aminotransferase [Enzymatic activity/volume] in Serum or Plasma AST Lab Routine Rheumatoid arthritis involving multiple sites with positive rheumatoid factor (HCC) USP methotrexate user every 3 months for 2 Occurrences starting 07/19/2022 until 07/19/2023 [facility] Comment on above: every 3 months for 2 Occurrences starting 07/19/2022 until 07/19/2023 End: 12-31-2023 Aspartate aminotransferase [Enzymatic activity/volume] in Serum or Plasma AST Lab Routine Rheumatoid arthritis involving multiple sites with positive rheumatoid factor (HCC) 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 EVERY 3 MONTHS for 2 Occurrences starting 12/30/2022 until 12/31/2023 [facility] Comment on above: EVERY 3 MONTHS for 2 Occurrences starting 12/30/2022 until 12/31/2023 End: 11-15-2022 Bone density scan XR Bone Density DEXA Axial Imaging Routine Age-related osteoporosis without current pathological fracture 1 Occurrences starting 11/15/2021 until 11/15/2022 [facility] Comment on above: 1 Occurrences starti ng 11/15/2021 until 11/15/2022 End: 11-15-2022 C reactive protein [Mass/volume] in Serum or Plasma C-reactive protein Lab Routine Rheumatoid arthritis involving multiple sites with positive rheumatoid factor (HCC) 1 Occurrences starting 11/15/2021 until 11/15/2022 [facility] Comment on above: 1 Occurrences starti ng 11/15/2021 until 11/15/2022 End: 01-12-2025 C reactive protein [Mass/volume] in Serum or Plasma CRP, Inflammation Lab Routine High risk medication use 6 Occurrences starting 07/15/2023 until 01/12/2025 [facility] Comment on above: 6 Occurrences starti ng 07/15/2023 until 01/12/2025 End: 08-04-2025 C reactive protein [Mass/volume] in Serum or Plasma CRP, Inflammation Lab Routine Rheumatoid arthritis, involving unspecified site, unspecified whether rheumatoid factor present (HCC) 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, assisted, current use 3 Occurrences starting 08/04/2024 until 08/04/2025 [facility] Comment on above: 3 Occurrences starti ng 08/04/2024 until 08/04/2025 End: 11-15-2022 Complete blood count with white cell differential, manual CBC and differential Lab 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 1 Occurrences starting 11/15/2021 until 11/15/2022 [facility] Comment on above: 1 Occurrences starti ng 11/15/2021 until 11/15/2022 End: 07-19-2023 Complete blood count with white cell differential, manual CBC and Differential Lab Routine Rheumatoid arthritis involving multiple sites with positive rheumatoid factor (HCC) USP methotrexate user every 3 months for 2 Occurrences starting 07/19/2022 until 07/19/2023, 1 completed [facility] Comment on above: every 3 months for 2 Occurrences starting 07/19/2022 until 07/19/2023, 1 completed End: 12-31-2023 Complete blood count with white cell differential, manual CBC and Differential Lab Routine Rheumatoid arthritis involving multiple sites with positive rheumatoid factor (HCC) 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 EVERY 3 MONTHS for 2 Occurrences starting 12/30/2022 until 12/31/2023 [facility] Comment on above: EVERY 3 MONTHS for 2 Occurrences starting 12/30/2022 until 12/31/2023 End: 01-12-2025 Complete blood count with white cell differential, manual CBC and Differential Lab Routine High risk medication use 6 Occurrences starting 07/15/2023 until 01/12/2025 [facility] Comment on above: 6 Occurrences starti ng 07/15/2023 until 01/12/2025 End: 08-04-2025 Complete blood count with white cell differential, manual CBC and Differential Lab Routine Rheumatoid arthritis, involving unspecified site, unspecified whether rheumatoid factor present (HCC) 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, 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, 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 3 Occurrences starting 08/04/2024 until 08/04/2025 [facility] Comment on above: 3 Occurrences starti ng 08/04/2024 until 08/04/2025 End: 07-19-2023 Creatinine [Mass/volume] in Serum or Plasma Creatinine, serum Lab Routine Rheumatoid arthritis involving multiple sites with positive rheumatoid factor (HCC) USP methotrexate user every 3 months for 2 Occurrences starting 07/19/2022 until 07/19/2023 [facility] Comment on above: every 3 months for 2 Occurrences starting 07/19/2022 until 07/19/2023 End: 12-31-2023 Creatinine [Mass/volume] in Serum or Plasma Creatinine, serum Lab Routine Rheumatoid arthritis involving multiple sites with positive rheumatoid factor (HCC) 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 EVERY 3 MONTHS for 2 Occurrences starting 12/30/2022 until 12/31/2023 [facility] Comment on above: EVERY 3 MONTHS for 2 Occurrences starting 12/30/2022 until 12/31/2023 End: 07-02-2024 Creatinine [Mass/volume] in Serum or Plasma Creatinine, Serum Lab Routine Osteoporosis with current pathological fracture with routine healing, unspecified osteoporosis type, subsequent encounter 2 Occurrences starting 07/02/2023 until 07/02/2024, 1 completed [facility] Work Phone: Comment on above: 2 Occurrences starti ng 07/02/2023 until 07/02/2024, 1 completed End: 01-12-2025 Creatinine [Mass/volume] in Serum or Plasma Creatinine, serum Lab Routine High risk medication use 6 Occurrences starting 07/15/2023 until 01/12/2025 [facility] Comment on above: 6 Occurrences starti ng 07/15/2023 until 01/12/2025 End: 08-04-2025 Creatinine [Mass/volume] in Serum or Plasma Creatinine, serum Lab Routine Rheumatoid arthritis, involving unspecified site, unspecified whether rheumatoid factor present (HCC) 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, 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, 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 3 Occurrences starting 08/04/2024 until 08/04/2025 [facility] Comment on above: 3 Occurrences starti ng 08/04/2024 until 08/04/2025 End: 11-15-2022 Erythrocyte sedimentation rate Sedimentation Rate Lab Routine Rheumatoid arthritis involving multiple sites with positive rheumatoid factor (HCC) 1 Occurrences starting 11/15/2021 until 11/15/2022 [facility] Comment on above: 1 Occurrences starti ng 11/15/2021 until 11/15/2022 End: 01-12-2025 Erythrocyte sedimentation rate Sedimentation Rate Lab Routine High risk medication use 6 Occurrences starting 07/15/2023 until 01/12/2025 [facility] Comment on above: 6 Occurrences starti ng 07/15/2023 until 01/12/2025 End: 08-04-2025 Erythrocyte sedimentation rate Sedimentation Rate Lab Routine Rheumatoid arthritis, involving unspecified site, unspecified whether rheumatoid factor present (HCC) 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, assisted, current use 3 Occurrences starting 08/04/2024 until 08/04/2025 [facility] Comment on above: 3 Occurrences starti ng 08/04/2024 until 08/04/2025 End: 11-15-2022 Extractable nuclear antigen antibody screening test Nuclear antigen antibody Lab Routine H/O blood clots 1 Occurrences starting 11/15/2021 until 11/15/2022 [facility] Comment on above: 1 Occurrences starti ng 11/15/2021 until 11/15/2022 End: 11-15-2022 Hepatic function 2000 panel - Serum or Plasma Hepatic function panel Lab Routine USP methotrexate user 1 Occurrences starting 11/15/2021 until 11/15/2022 [facility] Comment on above: 1 Occurrences starti ng 11/15/2021 until 11/15/2022 End: 01-12-2025 Hepatic function 2000 panel - Serum or Plasma Hepatic Function Panel Lab Routine High risk medication use 6 Occurrences starting 07/15/2023 until 01/12/2025 [facility] Work Phone: Comment on above: 6 Occurrences starti ng 07/15/2023 until 01/12/2025 End: 08-04-2025 Hepatic function 2000 panel - Serum or Plasma Hepatic Function Panel Lab Routine Rheumatoid arthritis, involving unspecified site, unspecified whether rheumatoid factor present (HCC) 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, 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, 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 3 Occurrences starting 08/04/2024 until 08/04/2025 [facility] Work Phone: Comment on above: 3 Occurrences starti ng 08/04/2024 until 08/04/2025 End: 11-15-2022 Measurement of beta 2-glycoprotein 1 antibody Beta-2 Glycoprotein Antibodies Lab Routine H/O blood clots 1 Occurrences starting 11/15/2021 until 11/15/2022 [facility] Comment on above: 1 Occurrences starti ng 11/15/2021 until 11/15/2022 End: 12-25-2022 MR Hip Right Without Contrast MR Hip Right Without Contrast Imaging Routine Right hip pain Rheumatoid arthritis involving multiple sites with positive rheumatoid factor (HCC) 1 Occurrences starting 12/25/2021 until 12/25/2022 [facility] Comment on above: 1 Occurrences starti ng 12/25/2021 until 12/25/2022 End: 11-15-2022 MRI of cervical spine without contrast MR Cervical Spine Without Contrast Imaging Routine Rheumatoid arthritis involving multiple sites with positive rheumatoid factor (HCC) Osteoarthritis of cervical spine with myelopathy Chronic migraine without aura, with intractable migraine, so stated, with status migrainosus 1 Occurrences starting 11/15/2021 until 11/15/2022 [facility] Comment on above: 1 Occurrences starti ng 11/15/2021 until 11/15/2022 Patient Education [facility] Cardiomyopathy [facility] Work Phone: Patient referral [facility] Work Phone: End: 11-15-2022 Renal function 2000 panel - Serum or Plasma Renal Function Panel Lab 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 1 Occurrences starting 11/15/2021 until 11/15/2022 [facility] Comment on above: 1 Occurrences starti ng 11/15/2021 until 11/15/2022 End: 11-15-2022 Rheumatoid factor, quantitative Rheumatoid factor Lab Routine Rheumatoid arthritis involving multiple sites with positive rheumatoid factor (HCC) 1 Occurrences starting 11/15/2021 until 11/15/2022 [facility] Work Phone: Comment on above: 1 Occurrences starti ng 11/15/2021 until 11/15/2022 End: 11-15-2022 Serum anti-cardiolipin measurement Cardiolipin Antibodies Lab Routine H/O blood clots 1 Occurrences starting 11/15/2021 until 11/15/2022 [facility] Comment on above: 1 Occurrences starti ng 11/15/2021 until 11/15/2022 SURGICAL PATHOLOGY REQUEST SURGICAL PATHOLOGY REQUEST Surg Path Routine Primary osteoarthritis of right hip Release Upon Ordering for 1 Occurrences starting 06/18/2022 [facility] Comment on above: Release Upon Orderin g for 1 Occurrences starting 06/18/2022 End: 11-15-2022 Vitamin D, 25-hydroxy measurement Vitamin D, Total, 25-OH Lab Routine Low serum vitamin D Localized osteoporosis ([place]) 1 Occurrences starting 11/15/2021 until 11/15/2022 [facility] Comment on above: 1 Occurrences starti ng 11/15/2021 until 11/15/2022 End: 08-11-2025 Vitamin D, 25-hydroxy measurement Vitamin D, Total, 25-OH Lab Routine Osteoporosis with current pathological fracture with routine healing, unspecified osteoporosis type, subsequent encounter Disorder of bone, unspecified 1 Occurrences starting 08/11/2024 until 08/11/2025 [facility] Work Phone: Comment on above: 1 Occurrences starti ng 08/11/2024 until 08/11/2025 End: 11-15-2022 XR Cervical Spine AP/LAT/FLEX/EXT XR Cervical Spine AP/LAT/FLEX/EXT Imaging Routine Rheumatoid arthritis involving multiple sites with positive rheumatoid factor (HCC) Osteoarthritis of cervical spine with myelopathy Chronic migraine without aura, with intractable migraine, so stated, with status migrainosus 1 Occurrences starting 11/15/2021 until 11/15/2022 [facility] Comment on above: 1 Occurrences starti ng 11/15/2021 until 11/15/2022 End: 11-15-2022 XR Hands Bilateral Ball Catchers 2 Views XR Hands Bilateral Ball Catchers 2 Views Imaging Routine Rheumatoid arthritis involving multiple sites with positive rheumatoid factor (HCC) 1 Occurrences starting 11/15/2021 until 11/15/2022 [facility] Comment on above: 1 Occurrences starti ng 11/15/2021 until 11/15/2022 End: 06-18-2022 XR Hip - right Single view [facility] Comment on above: One Time for 1 Occur rences starting 06/18/2022 until 06/18/2022 End: 12-25-2022 XR Hip Right 2-3 Views (Routine) XR Hip Right 2-3 Views (Routine) Imaging Routine Right hip pain Osteoarthritis of cervical spine with myelopathy 1 Occurrences starting 12/25/2021 until 12/25/2022 [facility] Work Phone: Comment on above: 1 Occurrences starti ng 12/25/2021 until 12/25/2022 End: 11-15-2022 XR Knees Standing Bilateral AP/ LAT XR Knees Standing Bilateral AP/ LAT Imaging Routine Rheumatoid arthritis involving multiple sites with positive rheumatoid factor (HCC) 1 Occurrences starting 11/15/2021 until 11/15/2022 [facility] Comment on above: 1 Occurrences starti ng 11/15/2021 until 11/15/2022 XR Pelvis and Hip - right Views XR HIP WITH PELVIS RIGHT Imaging Routine Right hip pain 04/10/2022 2:43 PM EDT [employer] XR Pelvis and Hip - right Views XR HIP WITH PELVIS RIGHT Imaging Routine Hx of total hip arthroplasty, right 07/10/2022 11:36 AM EST [employer] XR Pelvis and Hip - right Views XR HIP WITH PELVIS RIGHT Imaging Routine Hx of total hip arthroplasty, right 07/31/2022 9:31 AM EST [employer] XR Pelvis and Hip - right Views XR HIP WITH PELVIS RIGHT Imaging Routine Hx of total hip arthroplasty, right 10/17/2022 10:29 AM [employer] [facility] Work Phone: XR Pelvis and Hip - right Views XR HIP WITH PELVIS RIGHT Imaging Routine Right hip pain 06/19/2023 9:30 AM [employer] [facility] Work Phone: XR Pelvis and Hip - right Views XR HIP WITH PELVIS RIGHT Imaging Routine Hip pain, unspecified laterality 12/03/2023 9:00 AM [employer] [facility] XR Shoulder - left 2 Views XR Shoulder Left 2+ Views (Standard) Imaging Routine Chronic pain of both shoulders 09/05/2023 11:33 AM EST [employer] XR Shoulder - right 2 Views XR Shoulder Right 2+ Views (Standard) Imaging Routine Chronic pain of both shoulders 09/05/2023 11:33 AM EST [employer] Work Phone: Immunizations Immunization Date Immunization Notes Care Provider [facility] 04-07-2023 influenza virus vaccine, unspecified formulation Sara Granados DO Work Phone: [facility] 06-15-2021 influenza virus vaccine, unspecified formulation Michaela Alarcon MD Work Phone: [facility] Payers Date Payer Category Payer Self-pay [id number] 2021 Unknown [id number] 2021 Private Health Insurance CLI [id number] 2020 Medicare [id number] 2020 Medicare [id number] 2014 Unknown xxxxxxxxxxxxxx [id number] 2014 Unknown [employer]I BCBS OUT OF STATE [facility] [id number] 2014-Present [id number] 2014 Unknown [id number] 1955 Unknown [id number] 1955 Unknown [id number] 1955 Unknown [id number] 1955 Unknown [id number] 1955 Unknown [id number] 1955 Unknown [id number] 2.16.840.1.522179.3.579.2. 903 1955 Unknown [id number] 2.16.840.1.293734.3.579.2. 903 1955 Unknown [id number] 2.16.840.1.335198.3.579.2. 903 1955 Unknown [id number] 2.16.840.1.981734.3.579.2. 903 1955 Unknown [id number] 2.16.840.1.460246.3.579.2. 903 1955 Unknown [id number] 2.16.840.1.021888.3.579.2. 903 1955 Unknown [id number] 2.16.840.1.545359.3.579.2. 903 1955 Unknown [id number] 2.16.840.1.058960.3.579.2. 903 1955 Unknown [id number] 2.16.840.1.387778.3.579.2. 983 1955 Unknown [id number] 2.16.840.1.332365.3.579.2. 983 1955 Unknown [id number] 2.16.840.1.527760.3.579.2. 983 1955 Unknown [id number] 2.16.840.1.851146.3.579.2. 983 1955 Unknown [id number] 2.16.840.1.063961.3.579.2. 903 1955 Unknown [id number] 2.16.840.1.513120.3.579.2. 903 1955 Unknown [id number] 2.16.840.1.578520.3.579.2. 903 1955 Unknown [id number] 2.16.840.1.997776.3.579.2. 903 1955 Unknown [id number] 2.16.840.1.060606.3.579.2. 903 1955 Unknown [id number] 2.16.840.1.424284.3.579.2. 903 1955 Unknown [id number] 2.16.840.1.341219.3.579.2. 90 1955 Unknown [id number] 2.16.840.1.303101.3.579.2. 1955 Unknown [id number] 2.16.840.1.939785.3.579.2. 903 1955 Unknown [id number] 2.16.840.1.982068.3.579.2. 90 1955 Unknown [id number] 2.16.840.1.616324.3.579.2. 627 1955 Unknown [id number] 2.16.840.1.396208.3.579.2. 627 Medicare supplementa l policy (as second payer) [employer] [id number]. [id number] Private Health Insurance [employer] [id number] Effective for all dates [phone] [address] [address] [place] [address] 1.2.840.844148.1.13.385.2. 7.3.156192.315 Unknown [id number] 2.16.840.1.647585.3.579.2. 462 Unknown [id number] 2.16.840.1.556975.3.579.2. 462 Unknown [id number] 2.16.840.1.649758.3.579.2. 462 Unknown [id number] 2.16.840.1.265734.3.579.2. 462 Unknown [id number] 2.16.840.1.719744.3.579.2. 462 Unknown [id number] 2.16.840.1.413388.3.579.2. 462 Unknown [id number] 2.16.840.1.816614.3.579.2. 462 Unknown [id number] 2.16.840.1.640164.3.579.2. 462 Unknown [id number] 2.16.840.1.042622.3.579.2. 462 Unknown [id number] 2.16.840.1.983421.3.579.2. 462 Unknown [id number] 2.16.840.1.886412.3.579.2. 462 Unknown [id number] 2.16.840.1.784553.3.579.2. 462 Unknown [id number] 2.16.840.1.109641.3.579.2. 462 Unknown [id number] 2.16.840.1.913421.3.579.2. 462 Social History Date Type Detail Facility Start: 09-01-2017 End: 11-22-2021 Tobacco smoking status NVIS Never smoker [employer] Work Phone: Start: 1955 Sex Assigned At Not on file [employer] Work Phone: Start: 03-24-2019 End: 07-02-2023 Alcohol intake Current non-drinker of alcohol (finding) [facility] Start: 03-24-2019 End: 11-22-2021 Tobacco use and exposure Never used [facility] Start: 08-09-2021 End: 01-03-2023 Tobacco smoking status NHIS Unknown if ever smoked [facility] Start: 1955 Sex Assigned At Female [facility] Start: 12-19-2015 End: 07-02-2023 Cigarette pack-years [facility] Start: 11-05-2021 End: 11-15-2021 Exposure to SARS-CoV-2 (event) Unable to assess [facility] Start: 11-11-2021 End: 10-07-2022 Exposure to SARS-CoV-2 (event) Not sure [facility] Start: 04-10-2022 End: 05-14-2022 Tobacco smoking status NHIS Ex-smoker [facility] History of tobacco use Current smoker [facility] History of tobacco use Cigarette Smoker A [facility] History of tobacco use Passive smoker [facility] Start: 04-10-2022 End: 12-03-2023 Alcohol intake Lifetime non-drinker (finding) [facility] Tobacco smoking status No Smokin g Status Entered [facility] Start: 05-14-2022 Tobacco Comment Quit 20+ yrs ago [facility] Start: 12-25-2021 End: 07-02-2023 Tobacco use panel [facility] Start: 09-23-2018 Gender identity Identifies as female gender (finding) [facility] Start: 09-23-2018 Sexual orientation Heterosexual (finding) [facility] Start: 09-13-2024 End: 10-08-2024 Sex Female (finding) [facility] Medical Equipment Procedure Code Equipment Code Equipment Origin al Text Equipment Identifier Dates Biolox Delta Cer amic Femoral Head +5.0 [id number] Start: 06-18-2022 Larsen Gripton Acetabular Shell Sector [id number] Start: 06-18-2022 Larsen Altrx Polyethlene Acetabular Liner Neutral [id number] Start: 06-18-2022 Femoral Stem 12/ 14 Taper Actis Duofix Hip Prosthesis Cementless [id number] Start: 06-18-2022 GLENOID FULL-WED GE AUGMENT BASEPLATE FDA Start: 04-15-2024 GLENOID PRESS-FI T SHORT POST FDA Start: 04-15-2024 GLENOID STANDARD GLENOSPHERE FDA Start: 04-15-2024 HUMERAL STEM, ST D SHORT FDA Start: 04-15-2024 REVERSED INSERT, +0MM FDA Sta rt: 04-15-2024 VIRGIL SHOULDER PERIPHERAL SCREW FDA Start: 04-15-2024 VIRGIL SHOULDER PERIPHERAL SCREW FDA Start: 04-15-2024 VIRGIL SHOULDER PERIPHERAL SCREW FDA Start: 04-15-2024 VIRGIL SHOULDER PERIPHERAL SCREW FDA Start: 04-15-2024 GLENOID FULL-WED GE AUGMENT BASEPLATE FDA Start: 04-15-2024 GLENOID PRESS-FI T SHORT POST FDA Start: 04-15-2024 GLENOID STANDARD GLENOSPHERE FDA Start: 04-15-2024 HUMERAL STEM, ST D SHORT FDA Start: 04-15-2024 REVERSED INSERT, +0MM FDA Sta rt: 04-15-2024 VIRGIL SHOULDER PERIPHERAL SCREW FDA Start: 04-15-2024 VIRGIL SHOULDER PERIPHERAL SCREW FDA Start: 04-15-2024 VIRGIL SHOULDER PERIPHERAL SCREW FDA Start: 04-15-2024 VIRGIL SHOULDER PERIPHERAL SCREW FDA Start: 04-15-2024 Mental Status Date Assessment Result Facility 06-04-2021 Cognitive function Voice/Name [facility] Work Phone: Clinical Notes 11-15-2021 to 12-09-2024 Telephone Encounter - Carola Mason LPN - 10/27/2024 9:28 AM EDTTelephone Encounter - Carola Mason LPN - 10/27/2024 9:28 AM Sara Dwyer, - 08/11/2024 11:02 AM EST Note Date & Type Note Facility 12-09-2024 Note . MICRO - Microbiology PROCEDURE: Acid Fast Bacilli Culture w Stain if Ind [*1] SOURCE: Tissue BODY SITE: Hip R COLLECTED DATE/TIME: 10/12/2024 13:37 EDT RECEIVED DATE/TIME: 10/12/2024 19:08 EDT START DATE/TIME: 10/12/2024 19:08 EDT FREE TEXT SOURCE: 3. POSTERIOR SYNOVIUM FINAL REPORTS Final Report [] Verified Date/Time/Personnel: 12/09/2024 08:17 EDT No growth of Acid Fast Bacilli PRELIMINARY REPORTS Preliminary Report [] Verified Date/Time/Personnel: 11/25/2024 08:36 EDT No growth of Acid Fast Bacilli to date. Final report to follow at 8 weeks. STAINS AFS [] Verified Date/Time/Personnel: 10/13/2024 12:17 EDT Acid Fast Smear from Concentrated Specimen: Negative Performing Locations *1: This test was performed at: [address], [facility]- , [facility] 12-09-2024 Note . MICRO - Microbiology PROCEDURE: Acid Fast Bacilli Culture w Stain if Ind [*1] SOURCE: Tissue BODY SITE: Hip R COLLECTED DATE/TIME: 10/12/2024 13:37 EDT RECEIVED DATE/TIME: 10/12/2024 18:41 EDT START DATE/TIME: 10/12/2024 18:41 EDT FREE TEXT SOURCE: 2. ACETABULAR MEMBRANE FINAL REPORTS Final Report [] Verified Date/Time/Personnel: 12/09/2024 08:17 EDT No growth of Acid Fast Bacilli PRELIMINARY REPORTS Preliminary Report [] Verified Date/Time/Personnel: 11/25/2024 08:36 EDT No growth of Acid Fast Bacilli to date. Final report to follow at 8 weeks. STAINS AFS [] Verified Date/Time/Personnel: 10/13/2024 12:17 EDT Acid Fast Smear from Concentrated Specimen: Negative Performing Locations *1: This test was performed at: [address], [facility]- , [facility] 12-09-2024 Note . MICRO - Microbiology PROCEDURE: Acid Fast Bacilli Culture w Stain if Ind [*1] SOURCE: Tissue BODY SITE: Hip R COLLECTED DATE/TIME: 10/12/2024 13:37 EDT RECEIVED DATE/TIME: 10/12/2024 18:53 EDT START DATE/TIME: 10/12/2024 18:53 EDT FREE TEXT SOURCE: 1. ANTERIOR SYNOVIUM FINAL REPORTS Final Report [] Verified Date/Time/Personnel: 12/09/2024 08:17 EDT No growth of Acid Fast Bacilli PRELIMINARY REPORTS Preliminary Report [] Verified Date/Time/Personnel: 11/25/2024 08:36 EDT No growth of Acid Fast Bacilli to date. Final report to follow at 8 weeks. STAINS AFS [] Verified Date/Time/Personnel: 10/13/2024 12:17 EDT Acid Fast Smear from Concentrated Specimen: Negative Performing Locations *1: This test was performed at: [address], [id number]- , [facility] 11-09-2024 Note . MICRO - Microbiology PROCEDURE: Fungal Culture with Stain if Ind [*1] SOURCE: Tissue BODY SITE: Hip R COLLECTED DATE/TIME: 10/12/2024 13:37 EDT RECEIVED DATE/TIME: 10/12/2024 18:41 EDT START DATE/TIME: 10/12/2024 18:41 EDT FREE TEXT SOURCE: 2. ACETABULAR MEMBRANE FINAL REPORTS Final Report [] Verified Date/Time/Personnel: 11/09/2024 08:06 EDT No fungus isolated in 4 weeks. PRELIMINARY REPORTS Preliminary Report [] Verified Date/Time/Personnel: 10/15/2024 08:48 EDT No fungus isolated to date. Final report to follow. STAINS FUNSM [] Verified Date/Time/Personnel: 10/13/2024 12:18 EDT No fungal elements observed by calcofluor white stain. Performing Locations *1: This test was performed at: [address], [address]- , [facility] 11-09-2024 Note . MICRO - Microbiology PROCEDURE: Fungal Culture with Stain if Ind [*1] SOURCE: Tissue BODY SITE: Hip R COLLECTED DATE/TIME: 10/12/2024 13:37 EDT RECEIVED DATE/TIME: 10/12/2024 19:08 EDT START DATE/TIME: 10/12/2024 19:08 EDT FREE TEXT SOURCE: 3. POSTERIOR SYNOVIUM FINAL REPORTS Final Report [] Verified Date/Time/Personnel: 11/09/2024 08:06 EDT No fungus isolated in 4 weeks. PRELIMINARY REPORTS Preliminary Report [] Verified Date/Time/Personnel: 10/15/2024 08:47 EDT No fungus isolated to date. Final report to follow. STAINS FUNSM [] Verified Date/Time/Personnel: 10/13/2024 12:18 EDT No fungal elements observed by calcofluor white stain. Performing Locations *1: This test was performed at: [address], [address]- , [facility] 11-09-2024 Note . MICRO - Microbiology PROCEDURE: Fungal Culture with Stain if Ind [*1] SOURCE: Tissue BODY SITE: Hip R COLLECTED DATE/TIME: 10/12/2024 13:37 EDT RECEIVED DATE/TIME: 10/12/2024 18:53 EDT START DATE/TIME: 10/12/2024 18:53 EDT FREE TEXT SOURCE: 1. ANTERIOR SYNOVIUM FINAL REPORTS Final Report [] Verified Date/Time/Personnel: 11/09/2024 08:06 EDT No fungus isolated in 4 weeks. PRELIMINARY REPORTS Preliminary Report [] Verified Date/Time/Personnel: 10/15/2024 08:48 EDT No fungus isolated to date. Final report to follow. STAINS FUNSM [] Verified Date/Time/Personnel: 10/13/2024 12:18 EDT No fungal elements observed by calcofluor white stain. Performing Locations *1: This test was performed at: [address], [address]- , [facility] 10-27-2024 Telephone encounter Note Rheumatology Refill Request Follow-up scheduled? [x]Yes []No Labs at [facility]: Lab Results Component Value Date WBC 5.55 03/31/2023 HGB 13.8 03/31/2023 HCT 42.3 03/31/2023 MCV 95.3 03/31/2023 PLT 196 03/31/2023 RBC 4.44 03/31/2023 Lab Results Component Value Date CREATININE 0.72 07/02/2023 Lab Results Component Value Date ALT 41 03/31/2023 AST 32 03/31/2023 ALKPHOS 88 07/19/2022 BILITOT 0.5 07/19/2022 Location of labs outside of [facility]: []CareEverywhere []Scanned into Media []N/A For hydroxychloroquine only: Eye exam within the last 12 months? []Yes []No []N/A NOTE: [facility] 10-27-2024 Miscellaneous Notes Rheumatology Refill Request Follow-up scheduled? [x]Yes []No Labs at [facility]: Lab Results Component Value Date WBC 5.55 03/31/2023 HGB 13.8 03/31/2023 HCT 42.3 03/31/2023 MCV 95.3 03/31/2023 PLT 196 03/31/2023 RBC 4.44 03/31/2023 Lab Results Component Value Date CREATININE 0.72 07/02/2023 Lab Results Component Value Date ALT 41 03/31/2023 AST 32 03/31/2023 ALKPHOS 88 07/19/2022 BILITOT 0.5 07/19/2022 Location of labs outside of [facility]: []CareEverywhere []Scanned into Media []N/A For hydroxychloroquine only: Eye exam within the last 12 months? []Yes []No []N/A NOTE: documented in this encounter [facility] 10-19-2024 Note . MICRO - Microbiology PROCEDURE: Culture Tissue [*1] SOURCE: Tissue BODY SITE: Hip R COLLECTED DATE/TIME: 10/12/2024 13:37 EDT RECEIVED DATE/TIME: 10/12/2024 19:08 EDT START DATE/TIME: 10/12/2024 19:08 EDT FREE TEXT SOURCE: 3. POSTERIOR SYNOVIUM FINAL REPORTS Final Report [] Verified Date/Time/Personnel: 10/19/2024 07:30 EDT No aerobes or anaerobes isolated at 7 days. PRELIMINARY REPORTS Preliminary Report [] Verified Date/Time/Personnel: 10/13/2024 12:00 EDT No growth to date STAINS GS [] Verified Date/Time/Personnel: 10/12/2024 19:49 EDT No organisms seen. Performing Locations *1: This test was performed at: [address], [address]- , [facility] 10-19-2024 Note . MICRO - Microbiology PROCEDURE: Culture Tissue [*1] SOURCE: Tissue BODY SITE: Hip R COLLECTED DATE/TIME: 10/12/2024 13:37 EDT RECEIVED DATE/TIME: 10/12/2024 18:53 EDT START DATE/TIME: 10/12/2024 18:53 EDT FREE TEXT SOURCE: 1. ANTERIOR SYNOVIUM FINAL REPORTS Final Report [] Verified Date/Time/Personnel: 10/19/2024 07:30 EDT No aerobes or anaerobes isolated at 7 days. PRELIMINARY REPORTS Preliminary Report [] Verified Date/Time/Personnel: 10/13/2024 12:00 EDT No growth to date STAINS GS [] Verified Date/Time/Personnel: 10/12/2024 19:22 EDT 2+ Mononuclear cells Rare Red Blood Cells No organisms seen. Performing Locations *1: This test was performed at: [address], [address]- , [facility] 10-19-2024 Note . MICRO - Microbiology PROCEDURE: Culture Tissue [*1] SOURCE: Tissue BODY SITE: Hip R COLLECTED DATE/TIME: 10/12/2024 13:37 EDT RECEIVED DATE/TIME: 10/12/2024 18:41 EDT START DATE/TIME: 10/12/2024 18:41 EDT FREE TEXT SOURCE: 2. ACETABULAR MEMBRANE FINAL REPORTS Final Report [] Verified Date/Time/Personnel: 10/19/2024 07:29 EDT No aerobes or anaerobes isolated at 7 days. PRELIMINARY REPORTS Preliminary Report [] Verified Date/Time/Personnel: 10/13/2024 11:59 EDT No growth to date STAINS GS [] Verified Date/Time/Personnel: 10/12/2024 19:03 EDT Rare Mononuclear cells No organisms seen. Performing Locations *1: This test was performed at: [facility], [address] [place] [address], [id number]- , [facility] 08-11-2024 Note RHEUMATOLOGY FOLLOW- UP VISIT Patient Name: Carlos Wilder : 1955 Medical Record: [id number] PCP: Joanne Arnold MD Referring provider: REASON FOR VISIT Seropositive RA ASSESSMENT AND PLAN Carlos Wilder is a 69 y.o. female who is being seen for evaluation of seropositive RA. Seropositive RA Overall, she is doing well on current regimen. She is having some postsurgical pain, but given that she had a joint replacement does not seem to be having flares of her other joints, I am less suspicious that this is secondary to rheumatoid arthritis. Plan: Continue current regimen as is with Enbrel 50 mg weekly, methotrexate 10 mg weekly, folic acid 1 mg daily, she is going to follow-up with her orthopedic surgeon regarding her persistent left shoulder pain. High risk medication use Labs reviewed from last week and overall stable. Slightly increased, however, WBC within normal limits. Lymphocytes previously within normal limits. Continue every 3-month monitoring labs. Hydroxychloroquine eye exam reviewed from June 2024 with no evidence of toxicity noted. Up-to-date on flu vaccine. Osteoporosis Tolerated first dose of Reclast well in June 2023. Will get her scheduled for next dose. Recently had creatinine within normal limits. Will get vitamin D level with her next set of labs. Return to clinic in 6 months Please do not hesitate to contact me with any questions or concerns. Sara Granados DO [facility] [address] [place] [address] O: [phone] F: [phone] The above recommendations were discussed with the patient who understands and agrees with the plan. Portions of this note were created with [employer]. Every effort was made to proofread, but sound-alike errors may occasionally occur. Please contact me for any clarification of note contents. Portions of this note were copied forward. I have updated the note to reflect today's visit, 08/11/2024 I am managing Carlos Wilder for complex chronic condition(s) serving as the focal point for the patient's care for consistency and continuity over time. HISTORY OF PRESENT ILLNESS Carlos Wilder is a 69 y.o. female who is here for follow-up of seropositive RA. PMH includes migraines, osteoarthritis, and osteoporosis. Interval history I here for follow-up today. Since last visit, she had her left shoulder replaced. She was doing well, but about a week ago, noticed a lot of pain in that area. She has an appointment scheduled with orthopedics next week. She also is having pain in her right hip which has been ongoing. She is s/p right hip replacement. She has done some physical therapy which did not help significantly. Initial history Prior patient of Dr. Ewing and Dr. Whipple. Last seen by Dr. Ewing in September 2022. RA diagnosed in the late s/early 1999'. Also saw Dr. Lemuel Sadler who diagnosed RA at [facility], Dr. Gerardo Khan at [facility] who moved to [place], and Dr. Shannon Gonzalez at [facility]. Serologies DANNIE negative RF/CCP positive Pertinent imaging/pathology X-ray imaging reviewed the patient brought in which showed L1 compression fracture. Will scan into the chart. Rheumatology medications Humira-on for 9 months in 2007. PHYSICAL EXAM Vitals: 08/11/24 1051 BP: 133/83 BP Location: Left arm Patient Position: Sitting Pulse: 71 Weight: 59.3 kg (130 lb 12.8 oz) Constitutional: ?No acute distress. Normal appearance. Not?ill-appearing. HENT: Head normocephalic?and atraumatic. Eyes: No discharge.??? Pulmonary: Pulmonary effort is normal. No?respiratory distress. Skin: Warm?and dry. No rash over exposed surfaces. Neurological: Alert. Psychiatric: ???Mood, affect, thought content normal. Musculoskeletal: Bony hypertrophy noted with synovial enlargement of the MCPs bilaterally, but no distinct synovitis noted. PAST MEDICAL HISTORY Past Medical History: Diagnosis Date Osteopenia Osteoporosis 06/09/2023 Rheumatoid arthritis (HCC) AUTHENTICATED BY SARA GRANADOS, ON 08/11/2024 11:37:50 [facility] 08-11-2024 History of Present illness Narrative Images from the original note were not included. RHEUMATOLOGY FOLLOW-UP VISIT Patient Name: Carlos Wilder : 1955 Medical Record: [id number] PCP: Joanne Arnold MD Referring provider: REASON FOR VISIT Seropositive RA ASSESSMENT AND PLAN Carlos Wilder is a 69 y.o. female who is being seen for evaluation of seropositive RA. Seropositive RA Overall, she is doing well on current regimen. She is having some postsurgical pain, but given that she had a joint replacement does not seem to be having flares of her other joints, I am less suspicious that this is secondary to rheumatoid arthritis. Plan: Continue current regimen as is with Enbrel 50 mg weekly, methotrexate 10 mg weekly, folic acid 1 mg daily, she is going to follow-up with her orthopedic surgeon regarding her persistent left shoulder pain. High risk medication use Labs reviewed from last week and overall stable. Slightly increased, however, WBC within normal limits. Lymphocytes previously within normal limits. Continue every 3-month monitoring labs. Hydroxychloroquine eye exam reviewed from June 2024 with no evidence of toxicity noted. Up-to-date on flu vaccine. Osteoporosis Tolerated first dose of Reclast well in June 2023. Will get her scheduled for next dose. Recently had creatinine within normal limits. Will get vitamin D level with her next set of labs. Return to clinic in 6 months Please do not hesitate to contact me with any questions or concerns. Sara Granados DO [facility] [address] [place] [address] O: [phone] F: [phone] The above recommendations were discussed with the patient who understands and agrees with the plan. Portions of this note were created with [employer]. Every effort was made to proofread, but sound-alike errors may occasionally occur. Please contact me for any clarification of note contents. Portions of this note were copied forward. I have updated the note to reflect today's visit, 08/11/2024 I am managing Carlos Wilder for complex chronic condition(s) serving as the focal point for the patient's care for consistency and continuity over time. HISTORY OF PRESENT ILLNESS Carlos Wilder is a 69 y.o. female who is here for follow-up of seropositive RA. PMH includes migraines, osteoarthritis, and osteoporosis. Interval history I here for follow-up today. Since last visit, she had her left shoulder replaced. She was doing well, but about a week ago, noticed a lot of pain in that area. She has an appointment scheduled with orthopedics next week. She also is having pain in her right hip which has been ongoing. She is s/p right hip replacement. She has done some physical therapy which did not help significantly. Initial history Prior patient of Dr. Ewing and Dr. Whipple. Last seen by Dr. Ewing in September 2022. RA diagnosed in the late s/early . Also saw Dr. Lemuel Sadler who diagnosed RA at [facility], Dr. Gerardo Khan at [facility] who moved to [place], and Dr. Shannon Gonzalez at [facility]. Serologies DANNIE negative RF/CCP positive Pertinent imaging/pathology X-ray imaging reviewed the patient brought in which showed L1 compression fracture. Will scan into the chart. Rheumatology medications Humira-on for 9 months in 2007. PHYSICAL EXAM Vitals: 08/11/24 1051 BP: 133/83 BP Location: Left arm Patient Position: Sitting Pulse: 71 Weight: 59.3 kg (130 lb 12.8 oz) Constitutional: ?No acute distress. Normal appearance. Not?ill-appearing. HENT: Head normocephalic?and atraumatic. Eyes: No discharge.??? Pulmonary: Pulmonary effort is normal. No?respiratory distress. Skin: Warm?and dry. No rash over exposed surfaces. Neurological: Alert. Psychiatric: ???Mood, affect, thought content normal. Musculoskeletal: Bony hypertrophy noted with synovial enlargement of the MCPs bilaterally, but no distinct synovitis noted. PAST MEDICAL HISTORY Past Medical History: Diagnosis Date Osteopenia Osteoporosis 06/09/2023 Rheumatoid arthritis (HCC) RHEUMATOLOGY FOLLOW-UP VISIT INTAKE: Have you had any new illnesses, infections, or hospitalizations? ? []Yes [x]No If yes, please specify: Are you having any side effects from your rheumatology medications? ? []Yes ? [x]No ? []N/A If yes, please specify: Are you having morning stiffness? ? [x]Yes []No How many minutes does it last? 5 min Are you having any joint swelling? ? []Yes [x]No If yes, what joints? Global Assessment: Considering all of the ways that your disease affects you, how are you doing (0 = best ; 10 = worst)? 3.0 No show/cancellation policy provided to patient: []Yes []Patient declined [x]Patient previously received and declined additional copy documented in this encounter [facility] 07-19-2024 Telephone encounter Note Labs reviewed. Scripts sent. Due for updated eye exam as of June. [facility] 07-19-2024 Miscellaneous Notes Labs reviewed. Scripts sent. Due for updated eye exam as of June. Rheumatology Refill Request Follow-up scheduled? [x]Yes []No Labs at [facility]: Lab Results Component Value Date WBC 5.55 03/31/2023 HGB 13.8 03/31/2023 HCT 42.3 03/31/2023 MCV 95.3 03/31/2023 PLT 196 03/31/2023 RBC 4.44 03/31/2023 Lab Results Component Value Date CREATININE 0.72 07/02/2023 Lab Results Component Value Date ALT 41 03/31/2023 AST 32 03/31/2023 ALKPHOS 88 07/19/2022 BILITOT 0.5 07/19/2022 Location of labs outside of [facility]: []CareEverywhere []Scanned into Media []N/A For hydroxychloroquine only: Eye exam within the last 12 months? []Yes []No []N/A NOTE: documented in this encounter [facility] 07-16-2024 Telephone encounter Note Rheumatology Refill Request Follow-up scheduled? [x]Yes []No Labs at [facility]: Lab Results Component Value Date WBC 5.55 03/31/2023 HGB 13.8 03/31/2023 HCT 42.3 03/31/2023 MCV 95.3 03/31/2023 PLT 196 03/31/2023 RBC 4.44 03/31/2023 Lab Results Component Value Date CREATININE 0.72 07/02/2023 Lab Results Component Value Date ALT 41 03/31/2023 AST 32 03/31/2023 ALKPHOS 88 07/19/2022 BILITOT 0.5 07/19/2022 Location of labs outside of [facility]: []CareEverywhere []Scanned into Media []N/A For hydroxychloroquine only: Eye exam within the last 12 months? []Yes []No []N/A NOTE: [facility] 07-16-2024 Telephone encounter Note Rheumatology Refill Request Follow-up scheduled? [x]Yes []No Labs at [facility]: Lab Results Component Value Date WBC 5.55 03/31/2023 HGB 13.8 03/31/2023 HCT 42.3 03/31/2023 MCV 95.3 03/31/2023 PLT 196 03/31/2023 RBC 4.44 03/31/2023 Lab Results Component Value Date CREATININE 0.72 07/02/2023 Lab Results Component Value Date ALT 41 03/31/2023 AST 32 03/31/2023 ALKPHOS 88 07/19/2022 BILITOT 0.5 07/19/2022 Location of labs outside of [facility]: []CareEverywhere []Scanned into Media []N/A For hydroxychloroquine only: Eye exam within the last 12 months? []Yes []No []N/A NOTE: will be out before ov . [facility] 07-16-2024 Miscellaneous Notes Rheumatology Refill Request Follow-up scheduled? [x]Yes []No Labs at [facility]: Lab Results Component Value Date WBC 5.55 03/31/2023 HGB 13.8 03/31/2023 HCT 42.3 03/31/2023 MCV 95.3 03/31/2023 PLT 196 03/31/2023 RBC 4.44 03/31/2023 Lab Results Component Value Date CREATININE 0.72 07/02/2023 Lab Results Component Value Date ALT 41 03/31/2023 AST 32 03/31/2023 ALKPHOS 88 07/19/2022 BILITOT 0.5 07/19/2022 Location of labs outside of [facility]: []CareEverywhere []Scanned into Media []N/A For hydroxychloroquine only: Eye exam within the last 12 months? []Yes []No []N/A NOTE: will be out before ov . documented in this encounter [facility] 05-24-2024 Telephone encounter Note Rheumatology Refill Request Follow-up scheduled? [x]Yes []No Labs at [facility]: Lab Results Component Value Date WBC 5.55 03/31/2023 HGB 13.8 03/31/2023 HCT 42.3 03/31/2023 MCV 95.3 03/31/2023 PLT 196 03/31/2023 RBC 4.44 03/31/2023 Lab Results Component Value Date CREATININE 0.72 07/02/2023 Lab Results Component Value Date ALT 41 03/31/2023 AST 32 03/31/2023 ALKPHOS 88 07/19/2022 BILITOT 0.5 07/19/2022 Location of labs outside of [facility]: []CareEverywhere []Scanned into Media []N/A For hydroxychloroquine only: Eye exam within the last 12 months? []Yes []No []N/A NOTE: [facility] 05-24-2024 Miscellaneous Notes Rheumatology Refill Request Follow-up scheduled? [x]Yes []No Labs at [facility]: Lab Results Component Value Date WBC 5.55 03/31/2023 HGB 13.8 03/31/2023 HCT 42.3 03/31/2023 MCV 95.3 03/31/2023 PLT 196 03/31/2023 RBC 4.44 03/31/2023 Lab Results Component Value Date CREATININE 0.72 07/02/2023 Lab Results Component Value Date ALT 41 03/31/2023 AST 32 03/31/2023 ALKPHOS 88 07/19/2022 BILITOT 0.5 07/19/2022 Location of labs outside of [facility]: []CareEverywhere []Scanned into Media []N/A For hydroxychloroquine only: Eye exam within the last 12 months? []Yes []No []N/A NOTE: documented in this encounter [facility] 05-06-2024 Telephone encounter Note Called patient and told methotrexate sent but due for monitoring labs at the end of the month [facility] 05-06-2024 Miscellaneous Notes Called patient and told methotrexate sent but due for monitoring labs at the end of the month 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 sent. Please let her know she is due for monitoring labs at the end of this month. Rheumatology Refill Request Follow-up scheduled? [x]Yes []No Labs at [facility]: Lab Results Component Value Date WBC 5.55 03/31/2023 HGB 13.8 03/31/2023 HCT 42.3 03/31/2023 MCV 95.3 03/31/2023 PLT 196 03/31/2023 RBC 4.44 03/31/2023 Lab Results Component Value Date CREATININE 0.72 07/02/2023 Lab Results Component Value Date ALT 41 03/31/2023 AST 32 03/31/2023 ALKPHOS 88 07/19/2022 BILITOT 0.5 07/19/2022 Location of labs outside of [facility]: []CareEverywhere [x]Scanned into Media []N/A For hydroxychloroquine only: Eye exam within the last 12 months? []Yes []No []N/A NOTE: documented in this encounter [facility] 05-05-2024 Telephone encounter Note 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 sent. Please let her know she is due for monitoring labs at the end of this month. [facility] 05-05-2024 Telephone encounter Note Rheumatology Refill Request Follow-up scheduled? [x]Yes []No Labs at [facility]: Lab Results Component Value Date WBC 5.55 03/31/2023 HGB 13.8 03/31/2023 HCT 42.3 03/31/2023 MCV 95.3 03/31/2023 PLT 196 03/31/2023 RBC 4.44 03/31/2023 Lab Results Component Value Date CREATININE 0.72 07/02/2023 Lab Results Component Value Date ALT 41 03/31/2023 AST 32 03/31/2023 ALKPHOS 88 07/19/2022 BILITOT 0.5 07/19/2022 Location of labs outside of [facility]: []CareEverywhere [x]Scanned into Media []N/A For hydroxychloroquine only: Eye exam within the last 12 months? []Yes []No []N/A NOTE: [facility] 04-09-2024 Note RHEUMATOLOGY FOLLOW- UP VISIT Patient Name: Carlos Wilder : 1955 Medical Record: [id number] PCP: Joanne Arnold MD Referring provider: REASON FOR VISIT Seropositive RA ASSESSMENT AND PLAN Carlos Wilder is a 69 y.o. female who is being seen for evaluation of seropositive RA. Seropositive RA Overall, she is doing well on current regimen. She is scheduled for shoulder replacement next week. She took her dose of Enbrel on Friday, 04/07, and is scheduled for surgery on 04/15. She will skip dose of Enbrel next week that was due on 04/14. Discussed with her that hydroxychloroquine and methotrexate can be continued perioperatively. She may resume her Enbrel after her wound has healed and is cleared by her surgeon. She also had flexion and extension x-rays of the cervical spine with normal anterior atlantal axial articulation noted in preparation for upcoming surgery. We will leave doses of methotrexate at 10 mg weekly +1 mg of folic acid daily and hydroxychloroquine 400 mg daily as is. High risk medication use Labs from January 2024 reviewed with stable blood counts, normal creatinine, and LFTs within normal limits. Continue monitoring labs every 3 months. Hydroxychloroquine eye exam reviewed from June 2023 with no evidence of toxicity noted. Osteoporosis Tolerated first dose of Reclast well in June 2023. Plan to schedule for June 2024. Will plan for 3 to 5 years of bisphosphonate therapy and holiday after if DEXA remained stable. Left shoulder pain Scheduled for left shoulder total reverse arthroplasty on 04/15. Medication recommendations as discussed above. Return to clinic in 3 months Please do not hesitate to contact me with any questions or concerns. Sara Granados DO [facility] Rheumatology [facility] [place] [address] O: [phone] F: [phone] The above recommendations were discussed with the patient who understands and agrees with the plan. Portions of this note were created with [employer]. Every effort was made to proofread, but sound-alike errors may occasionally occur. Please contact me for any clarification of note contents. Portions of this note were copied forward. I have updated the note to reflect today's visit, 04/09/2024 I am managing Carlos Wilder for complex chronic condition(s) serving as the focal point for the patient's care for consistency and continuity over time. HISTORY OF PRESENT ILLNESS Carlos Wilder is a 69 y.o. female who is here for follow-up of seropositive RA. PMH includes migraines, osteoarthritis, and osteoporosis. Interval history Intake form reviewed. Prior patient of Dr. Ewing. Here for follow-up today. RA overall doing current regimen. We discussed her coming next week. She took dose of Enbrel earlier this week, but is planning to hold dose prior to surgery next week. Initial history Prior patient of Dr. Ewing and Dr. Whipple. Last seen by Dr. Ewing in September 2022. RA diagnosed in the late s/early s. Also saw Dr. Lemuel Sadler who diagnosed RA at [facility], Dr. Gerardo Khan at [facility] who moved to [place], and Dr. Shannon Gonzalez at [facility]. Serologies DANNIE negative RF/CCP positive Pertinent imaging/pathology X-ray imaging reviewed the patient brought in which showed L1 compression fracture. Will scan into the chart. Rheumatology medications Humira-on for 9 months in 2007. PHYSICAL EXAM Vitals: 04/09/24 1046 BP: 135/78 Pulse: 63 Weight: 56.6 kg (124 lb 12.8 oz) Constitutional: ?No acute distress. Normal appearance. Not?ill-appearing. HENT: Head normocephalic?and atraumatic. Eyes: No discharge.??? Pulmonary: Pulmonary effort is normal. No?respiratory distress. Skin: Warm?and dry. No rash over exposed surfaces. Neurological: Alert. Psychiatric: ???Mood, affect, thought content normal. Musculoskeletal: No overt synovitis noted in hands. PAST MEDICAL HISTORY Past Medical History: Diagnosis Date Osteopenia Osteoporosis 06/09/2023 Rheumatoid arthritis (HCC) AUTHENTICATED BY SARA GRANADOS, ON 04/11/2024 10:38:22 [facility] 02-26-2024 Telephone encounter Note Rheumatology Refill Request Follow-up scheduled? [x]Yes []No Labs at [facility]: Lab Results Component Value Date WBC 5.55 03/31/2023 HGB 13.8 03/31/2023 HCT 42.3 03/31/2023 MCV 95.3 03/31/2023 PLT 196 03/31/2023 RBC 4.44 03/31/2023 Lab Results Component Value Date CREATININE 0.72 07/02/2023 Lab Results Component Value Date ALT 41 03/31/2023 AST 32 03/31/2023 ALKPHOS 88 07/19/2022 BILITOT 0.5 07/19/2022 Location of labs outside of [facility]: []CareEverywhere []Scanned into Media []N/A For hydroxychloroquine only: Eye exam within the last 12 months? []Yes []No []N/A NOTE: [facility] 02-26-2024 Miscellaneous Notes Rheumatology Refill Request Follow-up scheduled? [x]Yes []No Labs at [facility]: Lab Results Component Value Date WBC 5.55 03/31/2023 HGB 13.8 03/31/2023 HCT 42.3 03/31/2023 MCV 95.3 03/31/2023 PLT 196 03/31/2023 RBC 4.44 03/31/2023 Lab Results Component Value Date CREATININE 0.72 07/02/2023 Lab Results Component Value Date ALT 41 03/31/2023 AST 32 03/31/2023 ALKPHOS 88 07/19/2022 BILITOT 0.5 07/19/2022 Location of labs outside of [facility]: []CareEverywhere []Scanned into Media []N/A For hydroxychloroquine only: Eye exam within the last 12 months? []Yes []No []N/A NOTE: documented in this encounter [facility] 12-03-2023 History of Present illness Narrative Ortho Nurse - Established Patient Intake Room#: 1 --- continued R THR pain, rates it at a 4 today. She started having groin pain back in July and it was getting better but she fell last week. He fall was onto he opposite leg but since she is walking different because the the leg pain her groin pain has flared back up. She would like to check and make sure the replacement is still in the correct position. 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 She is schedule to have a L TSR in the fall. Date: 12/03/2023 9:00 AM Patient: Carlos Wilder MR#: [id number] : 1955 Age: 68 y.o. Referring Physician: Self, Self Insurance: Payor: MEDICARE / Plan: MEDICARE A AND B / Product Type: *No Product type* / Chief Complaint Patient presents with Right Hip - Pain There were no vitals taken for this visit. Pain 1. Are you having pain? 2. On a scale from 1-10: Recent Labs No results found for: CRP No results found for: SEDRATE Lab Results Component Value Date WBC 7.5 06/19/2022 HGB 9.9 (L) 06/19/2022 HCT 29.9 (L) 06/19/2022 PLATELET 112 (L) 06/19/2022 MCV 95.9 06/19/2022 History Past Medical History: Diagnosis Date Arthritis Chronic rheumatic arthritis Essential hypertension, benign DE (myocardial infarction) stress DE, 05/2021 Migraine Pulmonary embolism Past Surgical History: [...] At bedtime. amitriptyline 75 MG tablet daily. apixaban 2.5 MG tablet Take 1 tablet by mouth every 12 hours. This medication is for blood clot prevention 70 tablet 0 calcium carbonate 1250 (500 Ca) MG tablet Take 1 tablet by mouth 2 times daily with meals. [id number] PO Take by mouth daily. Celecoxib 200 [...] tablet Take 1 tablet by mouth daily. [place]-3 Fatty Acids (Fish Oil) 1000 MG capsule [...] right total hip arthroplasty with 30-40% abductor repair on . States she was doing well until Jul, 2023 when she developed groin pain. The groin pain was getting better but then became worse following a fall on the non-operative side last week. Denies fevers or chills. States she is scheduled for right shoulder replacement due to AVN, also has RA. Her pain is a 4/10. She is here today for a peace of mind evaluation regarding positioning of hip prosthesis. PHYSICAL EXAM: The bilateral lower extremities were evaluated. The operative lower extremity is soft, nontender with full and supple motion of the hip. No pain, no impingement. No instability. Normal gait. Palpable tenderness over the iliopsoas tendon. The contralateral extremity has full motion, normal stability, no tenderness. Bilateral lower extremities have normal neurovascular status. DIAGNOSTIC STUDIES/INTERPRETATION: Plain film radiographs reviewed. She has a right total hip arthroplasty in unchanged position and alignment. IMPRESSION: 1.) Iliopsoas tendonitis, right. 2.) Stable status post right total hip arthroplasty in 2021. PLAN: I reviewed my findings with Reena. We discussed the diagnosis, radiographs, physical exam findings and treatment options. We discussed the diagnosis of iliopsoas tendonitis, its associated symptoms and treatment options. At this time, recommend a script of Celebrex and formal PT. Should she fail NSAID and PT, then she will call my office and next step in treatment will be a referral to Dr. Gonzalez for ultrasound guided evaluation. She is in agreement with plan of care. All questions were answered to her satisfaction. Next appt will be left open to her. I have reviewed the findings of my clinical staff below and agree with their assessment. Ortho Nurse - Established Patient Intake Room#: 1 --- continued R THR pain, rates it at a 4 today. She started having groin pain back in July and it was getting better but she fell last week. He fall was onto he opposite leg but since she is walking different because the the leg pain her groin pain has flared back up. She would like to check and make sure the replacement is still in the correct position. 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 She is schedule to have a L TSR in the fall. Date: 12/03/2023 9:00 AM Patient: Carlos Wilder MR#: [id number] : 1955 Age: 68 y.o. Referring Physician: Self, Self Insurance: Payor: MEDICARE / Plan: MEDICARE A AND B / Product Type: *No Product type* / Chief Complaint Patient presents with Right Hip - Pain There were no vitals taken for this visit. Pain 1. Are you having pain? 2. On a scale from 1-10: Recent Labs No results found for: CRP No results found for: SEDRATE Lab Results Component Value Date WBC 7.5 06/19/2022 HGB 9.9 (L) 06/19/2022 HCT 29.9 (L) 06/19/2022 PLATELET 112 (L) 06/19/2022 MCV 95.9 06/19/2022 History Past Medical History: Diagnosis Date Arthritis Chronic rheumatic arthritis Essential hypertension, benign DE (myocardial infarction) stress DE, 05/2021 Migraine Pulmonary embolism Past Surgical History: [...] At bedtime. amitriptyline 75 MG tablet daily. apixaban 2.5 MG tablet Take 1 tablet by mouth every 12 hours. This medication is for blood clot prevention 70 tablet 0 calcium carbonate 1250 (500 Ca) MG tablet Take 1 tablet by mouth 2 times daily with meals. [id number] PO Take by mouth daily. Celecoxib 200 [...] tablet Take 1 tablet by mouth daily. [place]-3 Fatty Acids (Fish Oil) 1000 MG capsule [...] diclofenac, and diphenoxylate-atropine. documented in this encounter [facility] 11-18-2023 Telephone encounter Note Rheumatology Refill Request Follow-up scheduled? [x]Yes []No Labs at [facility]: Lab Results Component Value Date WBC 5.55 03/31/2023 HGB 13.8 03/31/2023 HCT 42.3 03/31/2023 MCV 95.3 03/31/2023 PLT 196 03/31/2023 RBC 4.44 03/31/2023 Lab Results Component Value Date CREATININE 0.72 07/02/2023 Lab Results Component Value Date ALT 41 03/31/2023 AST 32 03/31/2023 ALKPHOS 88 07/19/2022 BILITOT 0.5 07/19/2022 Location of labs outside of [facility]: []CareEverywhere []Scanned into Media []N/A For hydroxychloroquine only: Eye exam within the last 12 months? []Yes []No []N/A NOTE: [facility] 11-18-2023 Miscellaneous Notes Rheumatology Refill Request Follow-up scheduled? [x]Yes []No Labs at [facility]: Lab Results Component Value Date WBC 5.55 03/31/2023 HGB 13.8 03/31/2023 HCT 42.3 03/31/2023 MCV 95.3 03/31/2023 PLT 196 03/31/2023 RBC 4.44 03/31/2023 Lab Results Component Value Date CREATININE 0.72 07/02/2023 Lab Results Component Value Date ALT 41 03/31/2023 AST 32 03/31/2023 ALKPHOS 88 07/19/2022 BILITOT 0.5 07/19/2022 Location of labs outside of [facility]: []CareEverywhere []Scanned into Media []N/A For hydroxychloroquine only: Eye exam within the last 12 months? []Yes []No []N/A NOTE: documented in this encounter [facility] 09-05-2023 History of Present illness Narrative Associated Order(s): LG Jt Injection/Arthrocentesis: L glenohumeral Post-Procedure Diagnose(s): Chronic pain of both shoulders LG Jt Injection/Arthrocentesis: L glenohumeral Performed by: Sara Granados DO Authorized by: Sara Granados DO CPT 58833 - Large Joint Arthrocentesis: Consent given by: Patient Time out: Immediately prior to the procedure a time out was called Supporting Documentation: Indications: Pain Procedure Details: Location: Shoulder Site: L glenohumeral Needle size: 25 G Medications: 40 mg triamcinolone acetonide 40 mg/mL Anesthetic used: Lidocaine 1% Patient tolerance: Patient tolerated the procedure well with no immediate complications Verified correct patient, correct procedure, correct site, correct side, site marked, correct patient position, correct supplies/equipment, and patient verbal consent. Procedure not being performed in OR or with ignition source. After the above verifications including verbal consent, the site was cleaned following ACR guidelines; topical ethyl chloride alternative was used as a local skin anesthetic. The patient's the left shoulder(s) was injected with 1 cc of 1% lidocaine and 1 cc of kenalog (40mg per cc). Carlos Wilder tolerated the procedure well. As part of verbal consent, the remote risk of bleeding and infection related to the procedure was discussed. The patient was told to call us should increased warmth, redness, or pain develop in the joint. The patient voiced understanding of this risk. Sara Granados DO [facility] Rheumatology [address] [place] [address] Office Office Images from the original note were not included. RHEUMATOLOGY FOLLOW-UP VISIT Patient Name: Carlos Wilder : 1955 Medical Record: [id number] PCP: Joanne Arnold MD Referring provider: REASON FOR REFERRAL Seropositive RA ASSESSMENT AND PLAN Carlos Wilder is a 68 y.o. female who is being seen for evaluation of seropositive RA. Seropositive RA Stiffness improved after restarting methotrexate. Elevated CRP noted on monitoring labs. Patient has had worsening pain and decreased range of motion in the left shoulder. Injection provided today as below. Plan: Continue Enbrel 50 mg weekly, hydroxychloroquine 400 mg daily, and methotrexate 10 mg weekly +1 mg of folic acid daily. High risk medication use Creatinine has remained stable after restart of methotrexate. Mild leukopenia noted on monitoring labs from July 2023.. Continue to monitor this every 3 months. Hydroxychloroquine eye exam reviewed from June 2023 with no evidence of toxicity noted. Osteoporosis Tolerated first dose of Reclast well in June 2023. Repeat DEXA in October 2024. Recommend continued calcium and vitamin D supplementation. Last vitamin D level within normal limits. Bilateral shoulder pain Left greater than right. Empty can testing without evidence of full rotator cuff tear. S/p left shoulder injection today. X-rays of bilateral shoulders ordered. Return to clinic in 6 months Please do not hesitate to contact me with any questions or concerns. Sara Granados DO [facility] Rheumatology [address] [place] [address] O: [phone] F: [phone] The above recommendations were discussed with the patient who understands and agrees with the plan. Portions of this note were created with [employer]. Every effort was made to proofread, but sound-alike errors may occasionally occur. Please contact me for any clarification of note contents. Portions of this note were copied forward. I have updated the note to reflect today's visit, 09/05/2023 I am managing Carlos Wilder for complex chronic condition(s) serving as the focal point for the patient's care for consistency and continuity over time. HISTORY OF PRESENT ILLNESS Carlos Wilder is a 68 y.o. female who is here for follow-up of seropositive RA. PMH includes migraines, osteoarthritis, and osteoporosis. Interval history Intake form reviewed. Prior patient of Dr. Ewing. Here for follow-up today. Overall, doing better on methotrexate. Left shoulder has been bothering her some. Also wakes up in the night with some increased stiffness. Interested in a shoulder injection today. Initial history Prior patient of Dr. Ewing and Dr. Whipple. Last seen by Dr. Ewing in September 2022. RA diagnosed in the late s/early 1999's. Also saw Dr. Lemuel Sadler who diagnosed RA at [facility], Dr. Gerardo Khan at [facility] who moved to [place], and Dr. Shannon Gonzalez at [facility]. Serologies DANNIE negative RF/CCP positive Pertinent imaging/pathology [...] adjustments/changes noted in HPI. PHYSICAL EXAM Vitals: 09/05/23 1045 BP: 118/79 Pulse: 69 Weight: 62.4 kg (137 lb 9.6 oz) Constitutional: ?No acute distress. Normal appearance. Not?ill-appearing. HENT: Head normocephalic?and atraumatic. Eyes: No discharge.??? Pulmonary: Pulmonary effort is normal. No?respiratory distress. Skin: Warm?and dry. No rash over exposed surfaces. Neurological: Alert. Psychiatric: ???Mood, affect, thought content normal. Musculoskeletal: Chronic deformities in hands including OA changes. Left shoulder with decreased range of motion. Empty can testing negative, but some tenderness elicited with resisted abduction of the left shoulder. PAST MEDICAL HISTORY Past Medical History: Diagnosis Date Osteopenia Osteoporosis 06/09/2023 Rheumatoid arthritis (HCC) MEDICATIONS Reviewed. LABS Pertinent autoimmune serologies noted in HPI. IMAGING Pertinent imaging noted in HPI. RHEUMATOLOGY FOLLOW-UP VISIT INTAKE: Have you had any new illnesses, infections, or hospitalizations? ? []Yes [x]No If yes, please specify: Are you having any side effects from your rheumatology medications? ? []Yes ? [x]No ? []N/A If yes, please specify: Are you having morning stiffness? ? []Yes []No How many minutes does it last? 10 min Are you having any joint swelling? ? []Yes [x]No If yes, what joints? Global Assessment: Considering all of the ways that your disease affects you, how are you doing (0 = best ; 10 = worst)? 2.5 documented in this encounter [facility] 08-06-2023 Telephone encounter Note Labs reviewed in media. Sending methotrexate. [facility] 08-06-2023 Miscellaneous Notes Labs reviewed in media. Sending methotrexate. Please have patient get updated labs for the methotrexate. I can refill the folic acid and hydroxychloroquine. Rheumatology Refill Request Follow-up scheduled? [x]Yes []No Labs at [facility]: Lab Results Component Value Date WBC 5.55 03/31/2023 HGB 13.8 03/31/2023 HCT 42.3 03/31/2023 MCV 95.3 03/31/2023 PLT 196 03/31/2023 RBC 4.44 03/31/2023 Lab Results Component Value Date CREATININE 0.72 07/02/2023 Lab Results Component Value Date ALT 41 03/31/2023 AST 32 03/31/2023 ALKPHOS 88 07/19/2022 BILITOT 0.5 07/19/2022 Location of labs outside of [facility]: []CareEverywhere [x]Scanned into Media []N/A For hydroxychloroquine only: Eye exam within the last 12 months? [x]Yes []No []N/A NOTE: documented in this encounter [facility] 08-05-2023 Telephone encounter Note Please have patient get updated labs for the methotrexate. I can refill the folic acid and hydroxychloroquine. [facility] 08-05-2023 Telephone encounter Note Rheumatology Refill Request Follow-up scheduled? [x]Yes []No Labs at [facility]: Lab Results Component Value Date WBC 5.55 03/31/2023 HGB 13.8 03/31/2023 HCT 42.3 03/31/2023 MCV 95.3 03/31/2023 PLT 196 03/31/2023 RBC 4.44 03/31/2023 Lab Results Component Value Date CREATININE 0.72 07/02/2023 Lab Results Component Value Date ALT 41 03/31/2023 AST 32 03/31/2023 ALKPHOS 88 07/19/2022 BILITOT 0.5 07/19/2022 Location of labs outside of [facility]: []CareEverywhere [x]Scanned into Media []N/A For hydroxychloroquine only: Eye exam within the last 12 months? [x]Yes []No []N/A NOTE: [facility] 07-02-2023 History of Present illness Narrative No reaction noted, discharged patient off of STC ambulatory IVPB Reclast completed, flushed line with NS, tolerated well IVPB Reclast initiated via pump, tolerating well documented in this encounter [facility] 06-19-2023 History of Present illness Narrative Ortho Nurse - Established Patient Intake Room#: 2 --- 1 yr follow-up for R THR. Pt rates her pain at a 0 today and stated hip is feeling great. Date: 06/19/2023 9:50 AM Patient: Carlos Wilder MR#: [id number] : 1955 Age: 68 y.o. Referring Physician: [...] Arthritis Chronic rheumatic arthritis Essential hypertension, benign DE (myocardial infarction) stress DE, 05/2021 Migraine Pulmonary embolism Past Surgical History: [...] by mouth 2 times daily with meals. PNENUON-HPRYEYRXO-VFLJ PO Take by mouth daily. Celecoxib 200 [...] tablet Take 1 tablet by mouth daily. [place]-3 Fatty Acids (Fish Oil) 1000 MG capsule [...] feeling great. Date: 06/19/2023 9:50 AM Patient: Carlos Wilder MR#: [id number] : 1955 Age: 68 y.o. Referring Physician: [...] Arthritis Chronic rheumatic arthritis Essential hypertension, benign DE (myocardial infarction) stress DE, 05/2021 Migraine Pulmonary embolism Past Surgical History: [...] by mouth 2 times daily with meals. QMHUMXQ-UGFPEGFED-BVKX PO Take by mouth daily. Celecoxib 200 [...] tablet Take 1 tablet by mouth daily. [place]-3 Fatty Acids (Fish Oil) 1000 MG capsule [...] diclofenac, and diphenoxylate-atropine. documented in this encounter [facility] 06-10-2023 History of Present illness Narrative For future Trevor PA's do not do under tier exception. PA has been approved but denied for tier exception. See attached approval/denial letter. Pt.'s Enbrel required a PA, the online form was completed and submitted through [employer] documented in this encounter [facility] 06-06-2023 History of Present illness Narrative Images from the original note were not included. RHEUMATOLOGY FOLLOW-UP VISIT Patient Name: Carlos Wilder : 1955 Medical Record: [id number] PCP: Joanne Arnold MD Referring provider: REASON FOR REFERRAL Seropositive RA ASSESSMENT AND PLAN Carlos Wilder is a 68 y.o. female who is [...] any questions or concerns. Sara Granados DO [facility] Rheumatology [address] [place] [address] O: [phone] F: [phone] The above recommendations were discussed with the patient who understands and agrees with the plan. Portions of this note were created with [employer] Dictation Software. Every effort was made to proofread, but sound-alike errors may occasionally occur. Please contact me for any clarification of note contents. HISTORY OF PRESENT ILLNESS Carlos Wilder is a 68 y.o. female who is [...] Dr. Lemuel Sadler who diagnosed RA at [facility], Dr. Gerardo Khan at [facility] who moved to [place], and Dr. Shannon Gonzalez at [facility]. Serologies DANNIE negative RF/CCP positive Pertinent imaging/pathology [...] doing (0-10)? 3.0 documented in this encounter [facility] 06-06-2023 History of Present illness Narrative Images from the original note were not included. RHEUMATOLOGY FOLLOW-UP VISIT Patient Name: Carlos Wilder : 1955 Medical Record: [id number] PCP: Joanne Arnold MD Referring provider: REASON FOR REFERRAL Seropositive RA ASSESSMENT AND PLAN Carlos Wilder is a 68 y.o. female who is [...] any questions or concerns. Sara Granados DO [facility] Rheumatology [address] [address] O: [phone] F: [phone] The above recommendations were discussed with the patient who understands and agrees with the plan. Portions of this note were created with [employer] Dict[employer]. Every effort was made to proofread, but sound-alike errors may occasionally occur. Please contact me for any clarification of note contents. HISTORY OF PRESENT ILLNESS Carlos Wilder is a 68 y.o. female who is [...] Dr. Lemuel Sadler who diagnosed RA at [facility], Dr. Gerardo Khan at [facility] who moved to [place], and Dr. Shannon Gonzalez at [facility]. Serologies DANNIE negative RF/CCP positive Pertinent imaging/pathology [...] doing (0-10)? 3.0 documented in this encounter [facility] 10-17-2022 History of Present illness Narrative Ortho Nurse - Established Patient Intake Room#: 2 4 month Right STEPHANIE A/L, denies pain, doing great Date: 10/17/2022 11:05 AM Patient: Carlos Wilder MR#: [id number] : 1955 Age: 67 y.o. Referring Physician: [...] Arthritis Chronic rheumatic arthritis Essential hypertension, benign DE (myocardial infarction) stress DE, 05/2021 Migraine Pulmonary embolism Past Surgical History: [...] by mouth 2 times daily with meals. TFILCEA-LRWDDQYAB-BTSY PO Take by mouth daily. Etanercept (Enbrel) [...] tablet Take 1 tablet by mouth daily. [place]-3 Fatty Acids (Fish Oil) 1000 MG capsule [...] times daily with meals., Disp: , Rfl: UCDXLGM-ZHYKTDUXZ-BUNY PO, Take by mouth daily., Disp: , [...] tablet by mouth daily., Disp: , Rfl: [place]-3 Fatty Acids (Fish Oil) 1000 MG capsule, [...] She understands she is at the 50% theresa of total recovery. We then discussed the [...] doing great Date: 10/17/2022 11:05 AM Patient: Carlos Wilder MR#: [id number] : 1955 Age: 67 y.o. Referring Physician: [...] Arthritis Chronic rheumatic arthritis Essential hypertension, benign DE (myocardial infarction) stress DE, 05/2021 Migraine Pulmonary embolism Past Surgical History: [...] by mouth 2 times daily with meals. RNLTZQA-OAOIKSMWJ-TPFN PO Take by mouth daily. Etanercept (Enbrel) [...] tablet Take 1 tablet by mouth daily. [place]-3 Fatty Acids (Fish Oil) 1000 MG capsule [...] times daily with meals., Disp: , Rfl: YNLSQZJ-BCHTBKBCC-ISXU PO, Take by mouth daily., Disp: , [...] tablet by mouth daily., Disp: , Rfl: [place]-3 Fatty Acids (Fish Oil) 1000 MG capsule, [...] diclofenac, and diphenoxylate-atropine. documented in this encounter [facility] 10-08-2022 History of Present illness Narrative Per Dr. Gildardo España gave the pt bilateral gluteus darcy injection, she was injected with 80 mg methylprednisolone (40 mg per each butt cheek). Pt tolerated well. Images from the original note were not included. RHEUMATOLOGY EST PATIENT VISIT Patients name: Carlos Wilder : 1955 Today's date: 10/08/2022 Reason for [...] appts: Dr. Lemuel Sadler Dx her at [facility] Dr. Gerardo Khan at [facility] -> Dr moved to [place] Former Dr. 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 90 tablet 3 GLUC HCL/CSANA/GLY-AM-GLY,MX/C (KRCZQQSH-USOVJBGAXS-QG GLYCN-C ORAL) Take by mouth. hydrOXYchloroQUINE (PLAQUENIL) [...] migraines -To continue with Botox and RFA 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 - Plan: Q3 labs at [facility] labs - Explained to patient that we [...] should receive a 3rd dose of the [employer] or moderna mRNA Covid vaccine. religious assistant HCQ therapy - Advised patient that the [...] month(s) Telehealth appointments ok. Andrea Ewing MD Media Relations Associate Street Cleaning Equipment Operator Note: To expedite correspondence this note was generated by Basys voice recognition software. Some grammatical or spelling errors may occur using the system. documented in this encounter [facility] 08-21-2022 History of Present illness Narrative [...] there are inherent diagnostic limitations compared to ijqw-vu-upho evaluations. We elected to proceed with the telephone visit telemedicine consultation. I have spent 30 minutes with the patient reviewing the HPI, reviewing and updating the medical records & coordination of care. The patient indicates understanding of these issues and agrees with the plan. RHEUMATOLOGY EST PATIENT VISIT Patients name: Carlos Ullom : 1955 Today's date: 08/21/2022 Reason for [...] appts: Dr. Lemuel Sadler Dx her at [facility] Dr. Gerardo Khan at [facility] -> Dr moved to [place] Former Dr. 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 USP HCQ therapy - Advised patient that the [...] month(s) Telehealth appointments ok. Andrea Ewing MD Media Relations Associate Street Cleaning Equipment Operator Note: To expedite correspondence this note was generated by [employer] recognition software. Some grammatical or spelling errors may occur using the system. documented in this encounter [facility] 07-31-2022 History of Present illness Narrative Ortho Nurse - Established Patient Intake Room#: 4 Date: 07/31/2022 9:38 AM Patient: Carlos Wilder MR#: [id number] : 1955 Age: 67 y.o. R STEPHANIE [...] Arthritis Chronic rheumatic arthritis Essential hypertension, benign DE (myocardial infarction) stress DE, 05/2021 Migraine Pulmonary embolism Past Surgical History: [...] by mouth 2 times daily with meals. AUHDTRH-USRVGJIZR-SJHM PO Take by mouth daily. Celecoxib 200 [...] tablet Take 1 tablet by mouth daily. [place]-3 Fatty Acids (Fish Oil) 1000 MG capsule [...] times daily with meals., Disp: , Rfl: LFAUPET-NYBXGCCMB-UZNO PO, Take by mouth daily., Disp: , [...] tablet by mouth daily., Disp: , Rfl: [place]-3 Fatty Acids (Fish Oil) 1000 MG capsule, [...] allergic to etodolac, diclofenac, and diphenoxylate-atropine. SUBJECTIVE: Carlos is an established patient of [facility]. She is here today for followup. She [...] any questions or concerns in the meantime. ([id number]) I have reviewed the findings of the clinical field technical support consultant and agree with their assessment. IZZY Calhoun Ortho Nurse - Established Patient Intake Room#: 4 Date: 07/31/2022 9:38 AM Patient: Carlos Wilder MR#: [id number] : 1955 Age: 67 y.o. R STEPHANIE [...] Arthritis Chronic rheumatic arthritis Essential hypertension, benign DE (myocardial infarction) stress DE, 05/2021 Migraine Pulmonary embolism Past Surgical History: [...] by mouth 2 times daily with meals. NJYUVCS-GWCGLSFMV-JYRZ PO Take by mouth daily. Celecoxib 200 [...] tablet Take 1 tablet by mouth daily. [place]-3 Fatty Acids (Fish Oil) 1000 MG capsule [...] times daily with meals., Disp: , Rfl: DXCOAQE-FRKSDGYLT-LUGV PO, Take by mouth daily., Disp: , [...] tablet by mouth daily., Disp: , Rfl: [place]-3 Fatty Acids (Fish Oil) 1000 MG capsule, [...] diclofenac, and diphenoxylate-atropine. documented in this encounter [facility] 07-19-2022 Telephone encounter Note Pt had labs done 07-19 [facility] 07-19-2022 Miscellaneous Notes Pt had labs done 07-19 documented in this encounter [facility] 07-10-2022 History of Present illness Narrative [...] daily. Her pain today is 3-4/10. Patient: Carlos Wilder MR#: [id number] : 1955 Age: 67 y.o. Referring Physician: Ghanshyam Liu APRN-CNP Insurance: Payor: MEDICARE / Plan: MEDICARE [...] Arthritis Chronic rheumatic arthritis Essential hypertension, benign DE (myocardial infarction) stress DE, 05/2021 Migraine Pulmonary embolism Past Surgical History: [...] by mouth 2 times daily with meals. IRKGNRC-ZPORDOPUN-FCAB PO Take by mouth daily. Celecoxib 200 [...] tablet Take 1 tablet by mouth daily. [place]-3 Fatty Acids (Fish Oil) 1000 MG capsule [...] times daily with meals., Disp: , Rfl: PZFAKQN-VQKZWXUWE-PXVS PO, Take by mouth daily., Disp: , [...] tablet by mouth daily., Disp: , Rfl: [place]-3 Fatty Acids (Fish Oil) 1000 MG capsule, [...] allergic to etodolac, diclofenac, and diphenoxylate-atropine. MRS Carlos Wilder is 3 weeks s/p right Anterolateral total hip arthroplasty. She is progressing nicely in her recovery. She is TDWB with AL restrictions. She reports 0 out of 10 pain. She is using tylenol for pain control and eliquis for DVT prophylaxis along with DEANNE chavez. Physical Exam: Today on exam incision is [...] visit. All pertinant portions of the clinical field technical support consultant documentation was reviewed. IZZY Calhoun I have reviewed the findings of the clinical field technical support consultant and agree with their assessment. IZZY Calhoun [...] daily. Her pain today is 3-4/10. Patient: Carlos Wilder MR#: [id number] : 1955 Age: 67 y.o. Referring Physician: Ghanshyam Liu APRN-CNP Insurance: Payor: MEDICARE / Plan: MEDICARE [...] Arthritis Chronic rheumatic arthritis Essential hypertension, benign DE (myocardial infarction) stress DE, 05/2021 Migraine Pulmonary embolism Past Surgical History: [...] by mouth 2 times daily with meals. EMIWUNI-VINDYFGGU-TRZL PO Take by mouth daily. Celecoxib 200 [...] tablet Take 1 tablet by mouth daily. [place]-3 Fatty Acids (Fish Oil) 1000 MG capsule [...] times daily with meals., Disp: , Rfl: QCIENPQ-ZWKCAJLFR-CYVM PO, Take by mouth daily., Disp: , [...] tablet by mouth daily., Disp: , Rfl: [place]-3 Fatty Acids (Fish Oil) 1000 MG capsule, [...] diclofenac, and diphenoxylate-atropine. documented in this encounter [facility] 06-19-2022 Note Formatting of this n ote might be different from the original. Discharge instructions and education reviewed with patient, education provided for DX and new medications, printed education given. Wound care and [facility] education also provided. Patient and family denies any questions, IV and tele removed. [facility] 06-19-2022 Miscellaneous Notes Discharge instructions and [...] at this time. Pt resting comfortably, prn Chatham administered for pain with effectiveness. No changes from previous assessment. Hip dressing intact. Voiding and passing gas. Will continue to monitor for any changes. Pt c/o of right hip pain, prn Chatham given with relief. ambulating to bedside commode with 1 person assistance. Educated on importance of incentive spirometer. DATE OF PROCEDURE: 06/18/2022 ATTENDING PHYSICIAN: Bradford Hussein M.D. WELDING FOREMAN: Ghanshyam Liu CNP. PREOPERATIVE DIAGNOSES: 1. Severe right hip [...] FLUIDS: Adequate. SPECIMENS: Bone. INSTRUMENTATION USED: DePuy Larsen 50 mm cup with a 32 mm neutral liner, DePuy Actis size 5 high-offset hip stem, and a Biolox delta ceramic head +5/32 diameter, 12/14 taper. INDICATIONS: Carlos is an established patient of mine. She [...] in the skin for comparison to a theresa on the proximal lateral femur for additional [...] procedure) without the assistance of a skilled nursing surgical services director. A nursing surgical services director was medically necessary for positioning, retraction and instrumentation. POST OPERATIVE/PROCEDURE NOTE Carlos Wilder 67 y.o. female [id number] SURGEON Surgeon(s) and Role: * Bradford Hussein MD - Primary WELDING FOREMAN IZZY Calhoun ANESTHESIOLOGIST MULTIMEDIA TECHNICIAN: NICOLE Vital SURGICAL STAFF Carbon Sequestration Plant Manager: Shama Tong RN; Virginia Willoughby RN; Jailyn Alvarenga RN Nurse Practitioner: IZZY Calhoun Scrub Person: Edgardo Allen RN Needle Maker: Osvaldo Shane LPN PROCEDURE PERFORMED Procedure(s) (LRB): [...] Implant Name Type Inv. Item Serial No. Welder Setter Electron Beam Machine Lot No. [id number] No. Used Action Larsen Gripton Acetabular Shell Sector [id number] Right 1 Implanted Larsen Altrx Polyethlene Acetabular Liner Neutral [id number] Right 1 Implanted Femoral Stem 12/14 Taper Actis Duofix Hip Prosthesis Cementless [id number] Right 1 Implanted Biolox Delta Ceramic Femoral Head +5.0 [id number] Right 1 Implanted SPECIMENS ID Type Source Tests Collected by Time Destination 1 : Right Femoral Head Permanent TISSUE SURGICAL PATHOLOGY REQUEST Bradford Hussein MD 06/18/2022 0849 Ghanshyam Liu APRN-STUART June 18, 2022 10:06 AM 05/20/22 0955 Information Source Information Source patient Contact Information [employer] Name Claudia Gray RN Case Manager's Living [...] with discharge plans. documented in this encounter [facility] 06-19-2022 Note Formatting of this [...] denies any other needs at this time. [facility] 06-19-2022 Hospital Discharge instructions Treva [...] - 06/19/2022 11:24 AM EST Contact Office ([phone]) if: > Any falls or injuries > [...] are to hold your pad in place. [facility] The following attachments cannot be sent through Care Everywhere.acetaminophen (oral) (Citizen [place])apixaban (Citizen [place])docusate (oral/rectal) (Citizen Of [place])acetaminophen and hydrocodone (Citizen Of [place])omeprazole (Citizen Of [place])celecoxib (Citizen Of [place])documented in this encounter [facility] 06-19-2022 Note Formatting of this n ote might be different from the original. Patient medicated for pain 01/06. Patient working with OT. [facility] 06-19-2022 History of Present illness Narrative [...] 3.2 oz) 03/21/22 60.8 kg (134 lb) [place] body weight: 45.5 kg (100 lb 4.9 [...] Arthritis Chronic rheumatic arthritis Essential hypertension, benign DE (myocardial infarction) stress DE, 05/2021 Migraine Pulmonary embolism Past Surgical History: [...] sit with verbal cues using the leg conveyor line battery charger. STS from EOB with verbal cues for [...] Car transfer simulation with CGA using leg conveyor line battery charger and verbal cues for using left conveyor line battery charger correctly. Pt wheeled back to room where we reviewed precautions with pt and pt spouse. Pt performs AP, QS, GS, SAQ and heel slides x3-5 reps each to review HEP. All questions answered for pt and pt spouse. pt provided with cold pack on Rt hip and call light in reach. Transfer Skill: Sit To Stand, Rehab Eval Paola (Sit-Stand Transfers) contact guard Physical Assist/Nonphysical Assist: Sit/Stand 1 person assist Weight-Bearing Restrictions: Sit/Stand toe touch weight-bearing Assistive Device For Transfer: Sit/Stand 2 wheeled walker Gait Skills, PT Eval Level of Paola: Gait contact guard Physical Assist/Nonphysical Assist: Gait 1 person assist Weight-Bearing Restrictions: Gait toe touch weight-bearing Assistive Device For Transfer: Gait 2 wheeled walker Gait Distance 25 feet Stair Negotiation Paola Level: Stair Negotiation contact guard assist Physical [...] Note P O DAY # 1 PROCEDURE: mel issa SUBJECTIVE: No new symptoms or complaints PAIN [...] Gait Distance: Up to bedside Feet: ASSESSMENT: daylin issa pod 1 PLAN: 1. PT/OT 2. IV antibiotics 3. DVT prophylaxis 4. Discharge planning DISCHARGE PLANNING: plans; post hospital: SEE SS NOTES AOP Patient Education on Meds to Beds Scripts AOP received prescriptions for Carlos Wilder for bedside delivery at discharge Medications ordered: Eliquis Chatham 5-325 mg Celecoxib 200 mg Docusate 100 mg Tylenol [address] 20 mg Issues Identified For Eliqujasmine, only filled a 30 day supply due [...] Arthritis Chronic rheumatic arthritis Essential hypertension, benign DE (myocardial infarction) stress DE, 05/2021 Migraine Pulmonary embolism Existing Precautions/Restrictions fall;hip;weight [...] Supine to Sit, Rehab Eval Level of Paola: Supine/Sit stand-by assist Physical Assist/Nonphysical Assist: Supine/Sit 1 person assist Transfer Skill: Sit to Stand, Rehab Eval Level of Paola: Sit/Stand contact guard Physical Assist/Nonphysical Assist: Sit/Stand 1 person assist Weight-Bearing Restrictions: Sit/Stand toe touch weight-bearing Assistive Device for Transfer: Sit/Stand wheeled walker Upper Body Dressing Level of Paola stand-by assist Physical Assist/Nonphysical Assist 1 person assist Lower Body Dressing Level of Paola maximum assist (25% patients effort) Physical Assist/Nonphysical Assist 1 person + 1 person to manage equipment Assistive Device manager consumer insights Toileting Level of Paola moderate assist (50% patients effort) Physical Assist/Nonphysical Assist 1 person assist General Therapy Interventions Planned Therapy Interventions (OT Eval) ADL retraining;balance training;transfer training Clinical Impression Co-evaluation/co-treatment performed? Yes, combination of simultaneous billable and individual billable skilled care Patient Instruction Pt instructed on LB dressing techniques donning underwear and shorts with training on use of manager consumer insights in sitting and standing with assistance to [...] hygiene training Therapist Information License # [id number] 1. Pt will complete LB dressing min [...] Arthritis Chronic rheumatic arthritis Essential hypertension, benign DE (myocardial infarction) stress DE, 05/2021 Migraine Pulmonary embolism Past Surgical History [...] Supine to Sit, Rehab Eval Level of Paola: Supine/Sit stand-by assist Physical Assist/Nonphysical Assist: Supine/Sit 1 person assist Transfer Skill: Sit To Stand, Rehab Eval Paola (Sit-Stand Transfers) contact guard Physical Assist/Nonphysical Assist: Sit/Stand 1 person assist Weight-Bearing Restrictions: Sit/Stand toe touch weight-bearing Assistive Device For Transfer: Sit/Stand 2 wheeled walker Gait Skills, PT Eval Level of Paola: Gait contact guard Physical Assist/Nonphysical Assist: Gait 1 person assist Weight-Bearing Restrictions: Gait toe touch weight-bearing Assistive Device For Transfer: Gait 2 wheeled walker Gait Distance bed to chair Balance Additional Documentation (Seated: Good; Standing: Fair-) Sensory Examination Sensory Examination WF Plan of Care Interventions Planned Therapy Interventions [...] WITH DR HUSSEIN. documented in this encounter [facility] 06-19-2022 Note Formatting of this n [...] at this time, call light within reach. [facility] 06-19-2022 Note Formatting of this n ote might be different from the original. Patient IV stopped per orders, patient is taking in adequate oral intake. Patient is leaving for therapy and states she has no needs at this time. [facility] 06-19-2022 Hospital course Narrative Images from the original note were not included. Discharge Summary Name: Carlos Wilder Age: 67 y.o. Birthday: 1955 Admit Date: [...] CARE 125 (H) 70 - 100 MG/DL Defensive Fire Control Systems Operator 207,205 REPEAT ABO/RH (D) TYPING Result Value [...] daily with meals. Commonly known as: OS-SAI TUWXVQF-RKETQHLXD-LIFC PO Take by mouth daily. Dextromethorphan-Guaifenesin 60-1200 [...] Department Dept Phone 07/10/2022 11:00 AM Ghanshyam [facility] Orthopedics [phone] documented in this encounter [facility] 06-19-2022 Note Formatting of this n ote might be different from the original. Pt resting comfortably, prn Chatham administered for pain with effectiveness. No changes from previous assessment. Hip dressing intact. Voiding and passing gas. Will continue to monitor for any changes. [facility] 06-19-2022 Note Formatting of this n ote might be different from the original. Pt c/o of right hip pain, prn Chatham given with relief. ambulating to bedside commode with 1 person assistance. Educated on importance of incentive spirometer. [facility] [facility] Consult note Associated Order (s): IP CONSULT TO GENERAL MEDICINE Medical Consultation Patient is a 67 yo female s/p right STEPHANIE. She was at her baseline state of health prior to surgery. She was medically optimized by her primary care provider and test rack operator. Notable for ECHO most recent EF back [...] Arthritis Chronic rheumatic arthritis Essential hypertension, benign DE (myocardial infarction) stress DE, 05/2021 Migraine Pulmonary embolism Past Surgical History: [...] CARE 125 (H) 70 - 100 MG/DL Defensive Fire Control Systems Operator [phone] REPEAT ABO/RH (D) TYPING Result Value [...] minutes total time. Darian Cisneros MD 06/18/2022 [facility] 06-18-2022 Consult note Associated Order (s): IP CONSULT TO GENERAL MEDICINE Medical Consultation Patient is a 67 yo female s/p right STEPHANIE. She was at her baseline state of health prior to surgery. She was medically optimized by her primary care provider and test rack operator. Notable for ECHO most recent EF back [...] Arthritis Chronic rheumatic arthritis Essential hypertension, benign DE (myocardial infarction) stress DE, 05/2021 Migraine Pulmonary embolism Past Surgical History: [...] CARE 125 (H) 70 - 100 MG/DL Defensive Fire Control Systems Operator [phone] REPEAT ABO/RH (D) TYPING Result Value [...] Cisneros MD 06/18/2022 documented in this encounter [facility] 06-18-2022 Note Formatting of this n ote is different from the original. DATE OF PROCEDURE: 06/18/2022 ATTENDING PHYSICIAN: Bradford Hussein M.D. WELDING FOREMAN: Ghanshyam Liu CNP. PREOPERATIVE DIAGNOSES: 1. Severe right hip [...] FLUIDS: Adequate. SPECIMENS: Bone. INSTRUMENTATION USED: DePuy Larsen 50 mm cup with a 32 mm neutral liner, DePuy Actis size 5 high-offset hip stem, and a Biolox delta ceramic head +5/32 diameter, 12/14 taper. INDICATIONS: Carlos is an established patient of mine. She [...] in the skin for comparison to a theresa on the proximal lateral femur for additional [...] procedure) without the assistance of a skilled nursing surgical services director. A nursing surgical services director was medically necessary for positioning, retraction and instrumentation. [facility] [employer] Work Phone: 06-18-2022 Nurse Note Patient transferred to [facility] 2 via cart in stable condition. Report given to AARTI López. Cart left in locked and lowest position with side rails up x2. Snack and call light given to patient. Monitors and alarms on and attached to patient. Dr. Hussein and Rj MULTIMEDIA TECHNICIAN at bedside at this time assessing pt. [...] Gleason. Patient's blood pressure is still low Godwinmarisa ALVAREZ gave more phenylephrine. Patient has a decrease in blood pressure Godwin MULTIMEDIA TECHNICIAN @ the bedside phenylephrine given. documented in this encounter [facility] 06-18-2022 Nurse Surgical operation note Patient transferred to el[facility]feld 2 t via cart in stable condition. Report given to AARTI López. Cart left in locked and lowest position with side rails up x2. Snack and call light given to patient. Monitors and alarms on and attached to patient. [facility] 06-18-2022 Nurse Surgical operation note Dr. Hussein and Rj MULTIMEDIA TECHNICIAN at bedside at this time assessing pt. And right hip dressing. Dressing clean dry and intact Dr. Hussein verbalized right hip looks fine new orders received at this time for an H&H.. [facility] 06-18-2022 Nurse Surgical operation note Left message with Dr Cisneros no change in blood pressure after medication given. [facility] 06-18-2022 Nurse Surgical operation note Dr Cisneros returned call new orders received. [facility] 06-18-2022 Nurse Surgical operation note Patient voided on bedpan 350 ml. [facility] 06-18-2022 Nurse Surgical operation note New orders received from Dr Cisneros. [facility] 06-18-2022 Nurse Surgical operation note Dr Gleason notified and a voicemail left for provider to return call in regards to patient blood pressure being low. Patient is drowsy but oriented person, place and situation. [facility] 06-18-2022 Nurse Surgical operation note Godwin Cox CRNA notified in regards to patient blood pressure. New orders receive to contact Dr Gleason. [facility] 06-18-2022 Nurse Surgical operation note Patient's blood pressure is still low Godwin MULTIMEDIA TECHNICIAN gave more phenylephrine. [facility] 06-18-2022 Nurse Surgical operation note Patient has a decrease in blood pressure Godwin MULTIMEDIA TECHNICIAN @ the bedside phenylephrine given. [facility] 06-18-2022 Note Formatting of this n ote is different from the original. POST OPERATIVE/PROCEDURE NOTE Carlos Wilder 67 y.o. female [id number] SURGEON Surgeon(s) and Role: * Bradford Hussein MD - Primary WELDING FOREMAN IZZY Calhoun ANESTHESIOLOGIST MULTIMEDIA TECHNICIAN: NICOLE Vital SURGICAL STAFF Carbon Sequestration Plant Manager: Shama Tong RN; Virginia Willoughby RN; Jailyn Alvarenga RN Nurse Practitioner: IZZY Calhoun Scrub Person: Edgardo Allen RN Needle Maker: Osvaldo Shane LPN PROCEDURE PERFORMED Procedure(s) (LRB): [...] Implant Name Type Inv. Item Serial No. Welder Setter Electron Beam Machine Lot No. LRB No. Used Action Larsen Gripton Acetabular Shell Sector [id number] Right 1 Implanted Larsen Altrx Polyethlene Acetabular Liner Neutral [id number] Right 1 Implanted Femoral Stem 12 Taper Actis Duofix Hip Prosthesis Cementless [id number] Right 1 Implanted Biolox Delta Ceramic Femoral Head +5.0 [id number] Right 1 Implanted SPECIMENS ID Type Source Tests Collected by Time Destination 1 : Right Femoral Head Permanent TISSUE SURGICAL PATHOLOGY REQUEST Bradford Hussein MD 06/18/2022 [id number] Ghanshyam Liu APRN-STUART June 18, 2022 10:06 AM [facility] 05-20-2022 Note Formatting of this n ote is different from the original. 05/20/22 0955 Information Source Information Source patient Contact Information [employer] Name Claudia Gray RN Case Manager's Living [...] to follow and assist with discharge plans. [facility] 04-10-2022 History of Present illness [...] done 01-07-22. Date: 04/10/2022 3:02 PM Patient: Carlos Wilder MR#: [id number] : 1955 Age: 67 y.o. Referring Physician: Michaela Alarcon MD Insurance: Payor: MEDICARE / Plan: MEDICARE A AND B / Product Type: *No Product type* / Chief Complaint Patient presents with Right Hip - Pain Visit Vitals Temp 96.8 F (36 C) (Temporal) Ht 1.525 m (5' 0.05) Wt 61.8 kg (136 lb 3.2 oz) [...] History Past Medical History: Diagnosis Date Arthritis DE (myocardial infarction) Migraine Pulmonary embolism Past Surgical [...] [x]cane, []bracing Are you followed by a test rack operator? [x] [] Name: Dr. Horn--Vinh Are you [...] a right total hip arthroplasty for optimal 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 management. PHYSICAL EXAM: This is an alert, [...] joint space, subchondral sclerosis, osteophyte formation, and qyvc-ak-mlkz contact. IMPRESSION: 1.) Severe symptomatic end-stage arthritis, right hip. 2.) Suspected abductor muscle tear, right side. 3.) History of PE in Jul, 2021 with unknown etiology. 4.) History of DE. PLAN: We have discussed in great detail the nature of the diagnosis, the natural history and expected progression which is likely worsening pain, instability with risks of falls, and additional joint wear and or bone loss. We have discussed the options for treatment including both conservative and operative treatments. We have discussed the risks, benefits, and alternatives to each treatment. Carlos is interested in surgical management in the form of a right anterolateral total hip replacement with open abductor muscle repair as needed. Carlos understands that the potential benefits are reduced pain, improved stability and improved function. Carlos also understands that the major life or [...] of limb, and ultimately loss of life. USP expectations, risks and general implant survivorship were also discussed. Despite these risks, the patient would like to proceed with surgical planning. Today, we will initiate the pre-surgical process including nasal MRSA screening, scheduling an appointment for [facility] [place] and the potential surgical date, and reviewing and signing the consent forms. I have reviewed the findings of my clinical staff below and agree with their assessment. Vitals: 04/10/22 1445 Temp: 96.8 degrees F (36 degrees C) TempSrc: Temporal Weight: 61.8 kg (136 lb 3.2 oz) Height: 1.525 m (5' 0.05) Pain Presence of Pain: complains of pain/discomfort [...] MCV Past Medical History: Diagnosis Date Arthritis DE (myocardial infarction) Migraine Pulmonary embolism Past Surgical [...] Diarrhea Diphenoxylate-Atropine Diarrhea documented in this encounter [facility] 03-21-2022 History of Present illness Narrative HPI: Carlos Wilder Presents for evaluation and treatment of right [...] production Genitourinary: Denies dysuria or frequency HPI: Carlos Wilder Presents for evaluation and treatment of right [...] with chronic pain. documented in this encounter [facility] 03-21-2022 Instructions Chante Calderon RN - 03/21/2022 [...] are extremely rare. documented in this encounter [facility] 03-08-2022 History and physical note HPI: [...] Plan: Proceed with right intra-articular hip injection [facility] 03-08-2022 History and physical note HPI: [...] intra-articular hip injection documented in this encounter [facility] 03-08-2022 History of Present illness Narrative Carlos has been reminded of her procedure date, arrival time, and location. she has been asked to stop at registration to register for the procedure prior to coming to our department. Carlos denies any recent antibiotic therapy, having had [...] if so, have they been held appropriately. Carlos has been instructed to eat prior to coming in unless she is having sedation. If the patient is having a radiofrequency ablation, the patient denies having a pacemaker or we have received clearance for their pacemaker. SCRUB - AARTI Farrar RT - RT Vincent MULTIMEDIA TECHNICIAN - N/A METAL COATER OPERATOR - Oliva Erazo RN Physician - Dr. Alarcon Site cleansed with hibiclens. documented in this encounter [facility] 03-08-2022 Procedure note Associated Ord er(s): [...] presents for right hip injection. Technique: The plasma processing technician's and physician's hands were washed immediately prior to the procedure using a chlorhexidine soap or sanitized using ethyl alcohol hand pottery decoration designer. Hat, mask, and sterile gloves were used [...] complications. PLAN :Follow-up at next scheduled visit [facility] 03-08-2022 Procedure note Associated Ord er(s): [...] presents for right hip injection. Technique: The plasma processing technician's and physician's hands were washed immediately prior to the procedure using a chlorhexidine soap or sanitized using ethyl alcohol hand pottery decoration designer. Hat, mask, and sterile gloves were used [...] next scheduled visit documented in this encounter [facility] 02-11-2022 History of Present illness Narrative [facility] DAILY TREATMENT NOTE Today's Date 02/11/2022 Patient Name: Carlos Wilder Date of : 1955 Current Visit #: [...] Visit: Discharge Aftab Aldridge PT STATE LICENSE, [id number] documented in this encounter [facility] 02-07-2022 Instructions Trish Crum - 02/07/2022 [...] are extremely rare. documented in this encounter [facility] 02-07-2022 History of Present illness Narrative Nurse Note: Review of Systems Endocrine: Positive for cold intolerance. Musculoskeletal: Positive for gait problem and neck pain. Neurological: Positive for headaches. All other systems reviewed and are negative. Nursing Assessment: Physical Exam Thank you for the referral of Carlos Wilder. As you know, she is a very pleasant 67 y.o. female who presents with right hip pain. The patient began to notice this pain generator in August,. Carlos does not recall an inciting event although [...] she is performing. The patient denies numbness/tingling. Carlos admits to having weakness right hip and [...] Exam Thank you for the referral of Carlos Wilder. As you know, she is a very pleasant 67 y.o. female who presents with right hip pain. The patient began to notice this pain generator in August,. Carlos does not recall an inciting event although [...] she is performing. The patient denies numbness/tingling. Carlos admits to having weakness right hip and [...] that requires education. documented in this encounter [facility] 02-06-2022 History of Present illness Narrative [facility] DAILY TREATMENT NOTE Today's Date 02/06/2022 Patient Name: Carlos Wilder Date of : 1955 Current Visit #: [...] improve hip A/PROM and strength Therapeutic Exercise (62488) Intervention Manual Parameters Nustep L3 7' (384 steps) to START Intervention LTR's 310x1 B (keep shallow) Parameters bridges with glute squeeze at end range (core tight) 310x1 Intervention 8 13.2 # KB deadlift 2x5 (feet planted) Parameters standing hip abd x10 each (core focus)-held Intervention piriformis stretch R 05l6-NG/too painful Parameters STS 22 no UE push off x10; x5 Intervention quadruped rock backs 32x5 Parameters shuttle squats D/L 37#10x2- NT Intervention ambulation with straight cane out of clinic 130' CLOTH WORKER SBA-NT Parameters seated AROM cervical: B rotations, retractions, ext 312x1 ea -HEP today/focused on hip/groin Intervention scalene/UT stretches 20x2 ea-HEP today, chin tucks [id number]-RII Parameters HEP: glute bridge, LTRs, chin tucks (give pics of new ex's with ea.session) Manual Therapy (57216) Intervention long-axis distraction 20x5 R Parameters STM using 2# ball to R hip and groin region / lat.R hip jt mob 10' total for all manual therapy Functional Activity (00599) Intervention manual hip IR/ER stretch 20x2 ea R- NT PT Treatment Times Therex [...] is interested). To discuss with PT-Far[facility] at [place]. Skilled Intervention demonstrated by modifications of treatment [...] [facility]). Rozina Gordillo PTA STATE LICENSE, [id number] documented in this encounter [facility] 2022 History of Present illness Narrative [facility] DAILY TREATMENT NOTE Today's Date 2022 Patient Name: Carlos Wilder Date of : 1955 Current Visit #: [...] improve hip A/PROM and strength Therapeutic Exercise (29823) Intervention Manual Parameters Nustep L3 7' (423 steps) to START Intervention LTR's 310x1 B (keep shallow) Parameters bridges with glute squeeze at end range (core tight) 310x1 Intervention 8 13.2 # KB deadlift 2x5 (feet planted) Parameters standing hip abd x10 each (core focus) Intervention piriformis stretch R 67p8-FQ/too painful Parameters STS 22 no UE push off x10 Intervention quadruped rock backs 32x5 Parameters shuttle squats D/L 37#10x2- NT Parameters seated AROM cervical: B rotations, retractions, ext 312x1 ea -HEP today/focused on hip/groin Intervention scalene/UT stretches 20x2 ea-HEP today, chin tucks [id number] Parameters HEP: glute bridge, LTRs, chin tucks (give pics of new ex's with ea.session) Manual Therapy (18324) Intervention long-axis distraction 20x4 R- NT / manual hip IR/ER stretch 20x2 ea R Parameters STM using 2# ball [...] as tolerable. Rozina Gordillo PTA STATE LICENSE, [id number] documented in this encounter [facility] 01-28-2022 History of Present illness Narrative [facility] DAILY TREATMENT NOTE Today's Date 01/28/2022 Patient Name: Carlos Wilder Date of : 1955 Current Visit #: [...] improve hip A/PROM and strength Therapeutic Exercise (18307) Parameters Nustep L3 7' (423 steps) Intervention LTR's 310x1 B (keep shallow) Parameters abd.bracing 512x1 / abd.bracing with marches 12x1 (tenderness on R side) Intervention bridges with glute squeeze at end range (core tight) 310x1 Parameters S/L hip abd (core tight) 10x1 B-held today to focus more on manual Intervention piriformis stretch R 63c2-KM/too painful Parameters STS 22 no UE push off 10x1 Intervention seated AROM cervical: B rotations, retractions, ext 312x1 ea -HEP today/focused on hip/groin Parameters chin tucks [id number]-CNI today Intervention scalene/UT stretches 20x2 ea-HEP today Parameters NV-SOR, RDL's Intervention see manual below Parameters hooklying hip abd/add isometrics (belt/bolster) 510x1 ea Intervention shuttle squats D/L 37#10x2 Parameters HEP: glute bridge, LTRs, chin tucks (give pics of new ex's with ea.session) Manual Therapy (67565) Intervention long-axis distraction 20x4 R / manual hip IR/ER stretch 20x2 ea R Parameters STM using 2# ball [...] functional strength. Aftab Aldridge PT STATE LICENSE, [id number] documented in this encounter [facility] 01-23-2022 History of Present illness Narrative [facility] DAILY TREATMENT NOTE Today's Date 01/23/2022 Patient Name: Carlos Wilder Date of : 1955 Current Visit #: [...] improve hip A/PROM and strength Therapeutic Exercise (72981) Parameters Nustep L3 7' (423 steps) Intervention LTR's 310x1 B (keep shallow) Parameters abd.bracing 512x1 / abd.bracing with marches 12x1 (tenderness on R side) Intervention bridges with glute squeeze at end range (core tight) 310x1 Parameters S/L hip abd (core tight) 10x1 B-held today to focus more on manual Intervention piriformis stretch R 95z0-VP/too painful Parameters STS 22 no UE push off 10x1 Intervention seated AROM cervical: B rotations, retractions, ext 312x1 ea -HEP today/focused on hip/groin Parameters chin tucks [id number] today Intervention scalene/UT stretches 20x2 ea-HEP today Parameters NV-SOR, RDL's Intervention see manual below Parameters hooklying hip abd/add isometrics (belt/bolster) 510x1 ea Intervention shuttle squats D/L 37#10x2 Parameters HEP: glute bridge, LTRs, chin tucks (give pics of new ex's with ea.session) Manual Therapy (55136) Intervention long-axis distraction 20x4 R / manual hip IR/ER stretch 20x2 ea R Parameters STM using 2# ball [...] closed-chain activity. Rozina Gordillo PTA STATE LICENSE, [id number] documented in this encounter [facility] 01-21-2022 History of Present illness Narrative [facility] DAILY TREATMENT NOTE Today's Date 01/21/2022 Patient Name: Carlos Wilder Date of : 1955 Current Visit #: [...] improve hip A/PROM and strength Therapeutic Exercise (80655) Parameters Nustep L3 7' (414 steps) Intervention LTR's 312x1 B (keep shallow) Parameters abd.bracing 512x1 / abd.bracing with marches 12x1 (tenderness on R side) Intervention bridges with glute squeeze at end range (core tight) 312x1 Parameters S/L hip abd (core tight) 10x1 B Intervention piriformis stretch R 16p3-AB/too painful Parameters STS 22 no UE push off 10x1 Intervention seated AROM cervical: B rotations, retractions, ext 312x1 ea -HEP today/focused on hip/groin Parameters chin tucks 171h7-KBJ today Intervention scalene/UT stretches 20x2 ea-HEP today Parameters NV-SOR, hip IR/ER stretch, RDL's Intervention see manual below Parameters hooklying hip abd/add isometrics (belt/bolster) 510x1 ea Parameters HEP: glute bridge, LTRs, chin tucks Manual Therapy (70162) Intervention long-axis distraction 20x4 R Parameters STM using 2# ball to [...] tolerable. Encouraged pt to check in with [facility] next week since she hasn't seen him since ev. Rozina Gordillo PTA STATE LICENSE, [id number] documented in this encounter [facility] 01-16-2022 History of Present illness Narrative [facility] DAILY TREATMENT NOTE Today's Date 01/16/2022 Patient Name: Carlos Wilder Date of : 1955 Current Visit #: [...] improve hip A/PROM and strength Therapeutic Exercise (66176) Parameters Nustep L3 6' (359 steps) Intervention LTR's 312x1 B (keep shallow) Parameters abd.bracing 512x1 / abd.bracing with marches 12x1 (tenderness on R side) Intervention bridges with glute squeeze at end range (core tight) 312x1 Parameters S/L hip abd (core tight) 10x1 B Intervention piriformis stretch R 07k8-IY/time Parameters STS 22 no UE push off 10x1 Intervention seated AROM cervical: B rotations, retractions, ext 312x1 ea (only rotations and retractions on 01-16-22) Parameters chin tucks [id number]-GQC today Intervention scalene/UT stretches 20x2 ea Parameters NV-SOR, hip IR/ER stretch, RDL's Intervention see manual below Parameters HEP: glute bridge, LTRs, chin tucks Manual Therapy (66092) Intervention long-axis distraction 20x4 R Parameters STM using 2# ball to [...] to progress. Rozina Gordillo PTA STATE LICENSE, [id number] documented in this encounter [facility] 01-14-2022 History of Present illness Narrative [facility] DAILY TREATMENT NOTE Today's Date 01/14/2022 Patient Name: Carlos Wilder Date of : 1955 Current Visit #: [...] taking her father to an appt at [facility] and had to walk quite a [...] improve hip A/PROM and strength Therapeutic Exercise (81646) Parameters Nustep L3 6' (311 steps) Intervention LTR's 312x1 B (keep shallow) Parameters abd.bracing 512x1 / abd.bracing with marches 12x1 (CLOTH WORKER A with R) Intervention bridges with glute squeeze at end range (core tight) 312x1 Parameters S/L hip abd (core tight) 10x1 B Intervention piriformis stretch R 20x3 Parameters STS 22 no UE push off 10x1 Intervention seated AROM cervical: B rotations, retractions, ext 312x1 ea Parameters chin tucks 312x1 Intervention scalene/UT stretches 20x3 ea Parameters NV-SOR, hip IR/ER stretch, RDL's [...] PT's recommendations. Rozina Gordillo PTA STATE LICENSE, [id number] documented in this encounter [facility] 01-09-2022 History of Present illness Narrative [facility] DAILY TREATMENT NOTE Today's Date 01/09/2022 Patient Name: Carlos Widler Date of : 1955 Current Visit #: [...] without tear. 4. Right iliopsoas bursitis. 5. 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, [...] improve hip A/PROM and strength Therapeutic Exercise (32009) Parameters Nustep L2 5' (191 steps) Intervention LTR's 310x1 B (keep shallow) Parameters abd.bracing 510x1 / abd.bracing with marches 10x1 Intervention bridges with glute squeeze at end range (core tight) 310x1 Parameters S/L hip abd (core tight) 10x1 B Intervention piriformis stretch R 20x3 Parameters STS 22 no UE push off 10x1 Intervention seated AROM cervical: B rotations, retractions, ext 310x1 ea Parameters chin tucks 310x1 Intervention scalene/UT stretches 20x2 ea Parameters NV-SOR, hip IR/ER stretch, RDL's [...] and RDL's. Rozina Gordillo PTA STATE LICENSE, [id number] documented in this encounter [facility] 12-25-2021 History of Present illness Narrative [...] there are inherent diagnostic limitations compared to kdgh-wk-yxbp evaluations. We elected to proceed with the telephone visit telemedicine consultation. I have spent 30 minutes with the patient reviewing the HPI, reviewing and updating the medical records & coordination of care. The patient indicates understanding of these issues and agrees with the plan. RHEUMATOLOGY EST PATIENT VISIT Patients name: Carlos Wilder : 1955 Today's date: 12/25/2021 Reason for [...] appts: Dr. Lemuel Sadler Dx her at [facility] Dr. Gerardo Khan at [facility] -> Dr moved to [place] Former Dr. 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 USP HCQ therapy - Advised patient that the [...] month(s) Telehealth appointments ok. Andrea Ewing MD Media Relations Associate Street Cleaning Equipment Operator Note: To expedite correspondence this note was generated by [employer] voice recognition software. Some grammatical or spelling errors may occur using the system. documented in this encounter [facility] 12-17-2021 Telephone encounter Note Pt had labs drawn friday [facility] 12-17-2021 Miscellaneous Notes Pt had labs drawn friday documented in this encounter [facility] 11-27-2021 History of Present illness Narrative Associated Order(s): LG Jt Injection/Arthrocentesis: L greater trochanteric bursa; LG Jt Injection/Arthrocentesis: R greater trochanteric bursa Post-Procedure Diagnose(s): Trochanteric bursitis of both hips Images from the original note were not included. RHEUMATOLOGY EST PATIENT VISIT Patients name: Carlos Wilder : 1955 Today's date: 11/27/2021 Reason for [...] appts: Dr. Lemuel Sadler Dx her at [facility] Dr. Gerardo Khan at [facility] -> Dr moved to [place] Former Dr. 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 [facility]: [id number] + [id number] A dressing was placed over the site. The patient tolerated the procedure well. No bleeding complications occurred. Andrea Ewing MD Assessment & Plan Rheumatoid arthritis +RF/CCP - appears controlled - Plan: stay on same dose of methotrexate which is 6 pills a week and weekly enbrel &HCQ 400mg/day 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 - Plan: Liver fibrosis test - Q3 labs at [facility] labs - Explained to patient that we [...] should receive a 3rd dose of the [employer] or moderna mRNA Covid vaccine. USP HCQ therapy - Advised patient that the [...] interventional pain management (Dr. Michaela Alarcon at [facility]) B/L trochanteric bursitis R>L -Patient obtained injections today of the affected areas. The patient indicates understanding of these issues and agrees with the plan. Return to clinic in 6-9 month(s) Telehealth appointments ok. Andrea Ewing MD Media Relations Associate Street Cleaning Equipment Operator Note: To expedite correspondence this note was generated by Dragon voice recognition software. Some grammatical or spelling errors may occur using the system. documented in this encounter [facility] 11-15-2021 History of Present illness Narrative [...] there are inherent diagnostic limitations compared to [id number] evaluations. We elected to proceed with the telephone visit telemedicine consultation. I have spent 30 minutes with the patient reviewing the HPI, reviewing and updating the medical records & coordination of care. The patient indicates understanding of these issues and agrees with the plan. RHEUMATOLOGY NEW PATIENT VISIT Patients name: Carlos Wilder : 1955 Today's date: 11/15/2021 Reason for [...] appts: Dr. Lemuel Sadler Dx her at [facility] Dr. Gerardo Khan at [facility] -> Dr moved to [place] Former Dr. 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 Shannon Gonzalez at [facility] Interim: C/o of b/l trochanteric [...] Spine AP/LAT/FLEX/EXT, MR Cervical Spine Without Contrast, USP methotrexate user - Plan: Liver fibrosis test - Q3 labs at [facility] labs - Explained to patient that we [...] should receive a 3rd dose of the [employer] or moderna Red Stamp Covid vaccine. USP HCQ therapy - Advised patient that the [...] interventional pain management (Dr. Michaela Alarcon at [facility]) H/O blood clots - r/o [...] month(s) Telehealth appointments ok. Andrea Ewing MD Media Relations Associate Street Cleaning Equipment Operator Note: To expedite correspondence this note was generated by Basys voice recognition software. Some grammatical or spelling errors may occur using the system. 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 Encounter for monitoring of etanercept therapy Age-related osteoporosis without current pathological fracture Osteoarthritis of cervical spine with myelopathy Chronic migraine without aura, with intractable migraine, so stated, with status migrainosus H/O blood clots Low serum vitamin D Localized osteoporosis ([place]) [facility] [...] unspecified migraine type [facility] Right hip pain- Primary Pain in joint, pelvic region and thigh Osteoarthritis of cervical spine with myelopathy Bilateral occipital neuralgia [facility] Diagnosis Primary osteoarthritis of right hip- Primary Primary localized osteoarthrosis, pelvic region and thigh [facility] Diagnosis Primary osteoarthritis of right hip Primary localized osteoarthrosis, pelvic region and thigh [facility] Diagnosis Rheumatoid arthritis, involving unspecified [...] rheumatoid factor present [facility] Diagnosis Right hip pain- Primary Pain in joint, pelvic region and thigh [facility]No assessment information available[facility] Work Phone: Evaluation note* Diagnosis Acute postoperative pain of right hip- Primary Abnormal results of liver function studies Nonspecific abnormal results of liver function study Preop testing Preoperative examination, unspecified Abnormal finding of blood chemistry, unspecified Primary osteoarthritis of right hip Primary localized osteoarthrosis, pelvic region and thigh Primary osteoarthritis of one hip, right [facility] Diagnosis Hx of total hip arthroplasty, right- Primary [facility] Diagnosis Rheumatoid arthritis, involving unspecified site, unspecified rheumatoid factor presence [facility] Diagnosis Rheumatoid arthritis involving multiple sites with positive rheumatoid factor (HCC)- Primary USP methotrexate user [facility] [...] arthroplasty, right- Primary [facility] Diagnosis Rheumatoid arthritis involving multiple sites with positive rheumatoid factor (HCC)- Primary Osteoarthritis of cervical spine, unspecified spinal osteoarthritis complication status USP methotrexate user Encounter for monitoring of etanercept therapy Long-term use of Plaquenil Age-related osteoporosis without current pathological fracture [facility] Diagnosis Rheumatoid arthritis involving multiple sites with positive rheumatoid factor (HCC)- Primary Rheumatoid arthritis, involving unspecified site, unspecified whether rheumatoid factor present (HCC) Age-related osteoporosis without current pathological fracture 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 Long-term use of Plaquenil Encounter for monitoring of etanercept therapy Osteoarthritis, generalized [facility] Diagnosis Hx of total hip arthroplasty, right- Primary [facility] Rheumatoid arthritis involving multiple sites with positive rheumatoid factor (HCC)- Primary USP methotrexate user [facility] Diagnosis Rheumatoid arthritis, involving unspecified site, unspecified whether rheumatoid factor present (HCC) [facility]* Diagnosis Onset Date Resolution Status Takotsubo cardiomyopathy [facility] Work Phone: Evaluation note* Diagnosis Rheumatoid arthritis, involving unspecified site, [...] region and thigh [facility] Diagnosis High risk medication use- Primary [facility] Diagnosis Rheumatoid arthritis involving multiple sites with positive rheumatoid factor (HCC)- Primary Age-related osteoporosis without current pathological fracture [facility] Diagnosis Rheumatoid arthritis involving multiple sites with positive rheumatoid factor (HCC) [facility] Diagnosis Chronic pain of both shoulders- Primary [facility]* Diagnosis Rheumatoid arthritis involving multiple sites with positive rheumatoid factor (HCC) [facility] Diagnosis Hip pain, unspecified laterality- Primary [facility] Diagnosis Rheumatoid arthritis involving multiple sites with positive rheumatoid factor (HCC) [facility] Diagnosis Rheumatoid arthritis (HCC) [facility] Diagnosis Rheumatoid arthritis involving multiple sites with positive rheumatoid factor (HCC) Rheumatoid arthritis (HCC) [facility]* Diagnosis Rheumatoid arthritis, involving unspecified site, unspecified whether rheumatoid factor present (HCC)- Primary 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, assisted, current use [facility]* Diagnosis Osteoporosis with current pathological fracture with routine healing, unspecified osteoporosis type, subsequent encounter- Primary Disorder of bone, unspecified [facility]* Diagnosis Rheumatoid arthritis involving multiple sites with positive rheumatoid factor (HCC) [facility] Diagnosis Rheumatoid arthritis involving multiple sites with positive rheumatoid factor (HCC) [facility] No data available for this section [facility] Progress note No data available for this section [facility] Reason for referral (narrative)No reason for referral information availableWProMedica [facility] Work Phone: Revqax for visit Narrative* Auth/Cert Specialty Diagnoses / Procedures Referred By Clara cunningham Referred To Contact Diagnoses Primary osteoarthritis of right hip Primary osteoarthritis of right hip [M16.11] Procedures LA TOTAL HIP ARTHROPLASTY ARTHROPLASTY HIP TOTAL LATERAL APPROACH Bradford Hussein MD [address] [place] [address] Referral ID Status Reason Start Date Expiration Date Visits Re quested Visits Authorized [id number] 04/18/2022 1 1 [facility] Diagnosis Seropositive rheumatoid arth ritis (HCC) - Primary Diagnosis Rheumatoid arthritis involvi ng multiple sites, unspecified rheumatoid factor presence (HCC) - Primary Primary osteoarthritis of mireille th hands Diagnosis Rheumatoid arthritis, involv ing unspecified site, unspecified rheumatoid factor presence (HCC) - Primary Primary osteoarthritis of mireille th hands Summary Purpose Family History No Family History Records Found Relationship Condition Age at Onset Recorded Date/T dayan Not Specified Cardiac disease Unknown Malignant neoplasm Unknown Advance Directives No Advanced Directives Records FoundDocuments on File Type Date Recorded Patient Screen Roller Expl anation Advance Directives and Living Will Advance Directive Response Recorded Date/ Time Living Will Yes June 04 9:13pm Power of Field Hand Yes June 04, 2021 9:13pm Advance Directive Response Recorded Date/ Time Living Will Yes June 04 8:13pm Power of Field Hand Yes June 04, 2021 8:13pm Documents on File Type Date Recorded Patient Screen Roller Expl anation Advance Directives/Living Will 06/19/2022 1:42 PM Latest Code Status on File Code Status Date Activated Date Inactivated Comments Full Code 06/18/2022 10:02 AM Date Activated Date Inactivated Comments 06/18/2022 10:02 AM History of Present Illness * Ricky Judd LPN - 07/27/2019 2:18 PM EST I received a PA request from [facility] for the pt's Enbrel. The online form was completed and sent in. documented in this encounter* Rikcy Judd LPN - 09/15/2019 11:07 AM EDT Pt's Enbrel required a tier exception per [facility]. I called [employer] ([phone]) and talked to Otis. The Tier exception went to pharmacy review. PA # [id number]. documented in this encounter Chief Complaint and Reason for Visit Chief Complaint CHEST PRESSURE chest pain CHEST PRESSURE CHEST PRESSURE CHEST PAIN ATAXIA 4wk fu ([facility]) PNEUMONIA TAKOTSUBO SYNDROME, EVAL FOR EF AND WALL MOTION S/O- EVERY 3 MOS- OR MORE OFTEN NEEDED RIGHT FLANK PAIN Reason for Visit Chest pain Elevated troponin Pulmonary emboli Takotsubo cardiomyopathy Chief Complaint CHEST PAIN ATAXIA 4wk fu ([facility]) PNEUMONIA TAKOTSUBO SYNDROME, EVAL FOR EF AND WALL MOTION S/O- EVERY 3 MOS- OR MORE OFTEN NEEDED RIGHT FLANK PAIN Reason for Visit Pulmonary emboli Takotsubo cardiomyopathy Chief Complaint SCREENING 1 YR F/U PAIN IN BACK Reason for Visit Takotsubo cardiomyop athy Chief Complaint STANDING ORDER Chief Complaint Admit Date STANDING ORDER May 24, 2024 9:46am S/O August 06, 2024 2 :57pm LEFT SHOULDER PAIN August 19, 2024 3:51pm Chief Complaint Admit Date S/O August 06, 2024 2 :57pm LEFT SHOULDER PAIN August 19, 2024 3:51pm Reason for Referral Specialty Diagnoses / Procedures Referred By Clara cunningham Referred To Contact Radiology Diagnoses Rheumatoid arthritis involving multiple sites with positive rheumatoid factor (HCC) Osteoarthritis of cervical spine with myelopathy Chronic migraine without aura, with intractable migraine, so stated, with status migrainosus Procedures MR Cervical Spine Without Contrast Andrea Ewing MD [address] [place] [address] Referral ID Status Reason Start Date Expiration Date V isits Requested Visits Authorized [id number] New Request 11/15/2021 11/15/2022 1 1 Specialty Diagnoses / Procedures Referred By Contac t Referred To Contact Radiology Diagnoses Age-related osteoporosis without current pathological fracture Procedures XR Bone Density DEXA Axial Andrea Ewing MD [address] [place] [phone] Referral ID Status Reason Start Date Expiration Date V isits Requested Visits Authorized [id number] Authorized 11/15/2021 11/15/2022 1 1 Specialty Diagnoses / Procedures Referred By Contac t Referred To Contact Diagnoses Rheumatoid arthritis, involving unspecified site, unspecified whether rheumatoid factor present (HCC) Andrea Ewing MD [address] [place] [address] Referral ID Status Reason Start Date Expiration Date Visits Re quested Visits Authorized [id number] Closed 1 1 Specialty Diagnoses / Procedures Referred By Contac t Referred To Contact Radiology Diagnoses Right hip pain Rheumatoid arthritis involving multiple sites with positive rheumatoid factor (HCC) Procedures MR Hip Right Without Contrast Andrea Ewing MD [address] [place] [phone] Referral ID Status Reason Start Date Expiration Date V isits Requested Visits Authorized [id number] Authorized 12/25/2021 12/25/2022 1 1 Specialty Diagnoses / Procedures Referred By Contac t Referred To Contact Rehabilitation Diagnoses Right hip pain Osteoarthritis of cervical spine with myelopathy Bilateral occipital neuralgia Andrea Ewing MD [address] [place] [phone] Referral ID Status Reason Start Date Expiration Date V isits Requested Visits Authorized [id number] Authorized 12/25/2021 12/25/2022 1 1 Specialty Diagnoses / Procedures Referred By Contac t Referred To Contact Pain Medicine Diagnoses Right hip pain Osteoarthritis of cervical spine with myelopathy Bilateral occipital neuralgia Andrea Ewing MD [address] [place] [address] Michaela Alarcon MD [address] [place] [address] Referral ID Status Reason Start Date Expiration Date V isits Requested Visits Authorized [id number] Authorized 12/25/2021 12/25/2022 1 1 Specialty Diagnoses / Procedures Referred By Contac t Referred To Contact Diagnoses Cervical spondylosis without myelopathy Michaela Alarcon MD [address] [place] [address] Referral ID Status Reason Start Date Expiration Date V isits Requested Visits Authorized [id number] New Request 02/07/2022 03/04/2023 1 1 Scheduling Instructions Please PA and schedule: Right Hip Intra-articular Injection Specialty Diagnoses / Procedures Referred By Contac t Referred To Contact Diagnoses Primary osteoarthritis of right hip Procedures XR FLUORO PAIN MANAGEMENT Michaela Alarcon MD [address] [place] [address] Referral ID Status Reason Start Date Expiration Date V isits Requested Visits Authorized [id number] New Request 03/08/2022 04/02/2023 1 1 Specialty Diagnoses / Procedures Referred By Contac t Referred To Contact Diagnoses Rheumatoid arthritis, involving unspecified site, unspecified whether rheumatoid factor present (HCC) Aftab Love MD [address] [place] [address] Referral ID Status Reason Start Date Expiration Date Visits Re quested Visits Authorized [id number] Closed 1 1 Specialty Diagnoses / Procedures Referred By Contac t Referred To Contact Diagnoses Chronic right hip pain Michaela Alarcon MD [address] [place] [address] Referral ID Status Reason Start Date Expiration Date V isits Requested Visits Authorized [id number] Auth Not Needed 03/21/2022 04/15/2023 1 1 Scheduling Instructions Please PA and schedule: right femoral obturator articulating NB #1 Referral ID Status Reason Start Date Expiration Date V isits Requested Visits Authorized [id number] Auth Not Needed 03/21/2022 04/15/2023 1 1 Scheduling Instructions Please PA and schedule: right femoral obturator articulating NB #2 Specialty Diagnoses / Procedures Referred By Contac t Referred To Contact Diagnoses Right hip pain Procedures XR HIP WITH PELVIS RIGHT Bradford Hussein MD [address] [place] [phone] Referral ID Status Reason Start Date Expiration Date V isits Requested Visits Authorized [id number] Pending Review 04/03/2022 04/28/2023 1 1 Specialty Diagnoses / Procedures Referred By Contac t Referred To Contact Diagnoses Hx of total hip arthroplasty, right Procedures XR HIP WITH PELVIS RIGHT Ghanshyam Liu APRN-CNP [address] [place], [place] [id number] Referral ID Status Reason Start Date Expiration Date V isits Requested Visits Authorized [id number] New Request 06/28/2022 07/23/2023 1 1 Referral ID Status Reason Start Date Expiration Date V isits Requested Visits Authorized [id number] New Request 07/19/2022 08/13/2023 1 1 Specialty Diagnoses / Procedures Referred By Contac t Referred To Contact Diagnoses Hx of total hip arthroplasty, right Procedures XR HIP WITH PELVIS RIGHT Bradford Hussein MD [address] [place] [address] Referral ID Status Reason Start Date Expiration Date V isits Requested Visits Authorized [id number] New Request 10/11/2022 11/05/2023 1 1 Referral ID Status Reason Start Date Expiration Date Visits Re quested Visits Authorized [id number] Closed 1 1 Referral ID Status Reason Start Date Expiration Date V isits Requested Visits Authorized [id number] New Request 06/13/2023 07/07/2024 1 1 Specialty Diagnoses / Procedures Referred By Contac t Referred To Contact Physical Therapy Diagnoses Hip pain, unspecified laterality Bradford Hussein MD [address] [place] [address] Referral ID Status Reason Start Date Expiration Date V isits Requested Visits Authorized [id number] New Request 12/03/2023 12/27/2024 1 1 Scheduling Instructions . Specialty Diagnoses / Procedures Referred By Contac t Referred To Contact Diagnoses Hip pain, unspecified laterality Procedures XR HIP WITH PELVIS RIGHT Bradford Hussein MD [address] [facility] [place] [address] Referral ID Status Reason Start Date Expiration Date V isits Requested Visits Authorized [id number] New Request 11/28/2023 12/22/2024 1 1 Additional Source Comments INFORMATION SOURCE (unrecogn ized section and content) DATE CREATED AUTHOR 12/24/2017 [facility] DATE CREATED AUTHOR AUTHOR'S ORGANIZ ATION 07/14/2019 [facility] DATE CREATED AUTHOR AUTHOR'S ORGANIZ ATION 04/10/2022 [facility] DATE CREATED AUTHOR AUTHOR'S ORGANIZ ATION 06/10/2022 [facility] ([place]) DATE CREATED AUTHOR AUTHOR'S ORGANIZ ATION 09/07/2023 [facility] DATE CREATED AUTHOR AUTHOR'S ORGANIZ ATION 12/04/2023 [facility] DATE CREATED AUTHOR AUTHOR'S ORGANIZ ATION [facility] DATE CREATED AUTHOR AUTHOR'S ORGANIZ ATION 12/10/2024 [facility] DATE CREATED AUTHOR AUTHOR'S ORGANIZ ATION 12/11/2024 [facility] Goals (unrecognized section and content) Goals may be documented in a n alternate sectionGoals may be documented in an alternate sectionGoals may be documented in an alternate section No data available for this sectionGoals may be documented in an alternate sectionGoals may be documented in an alternate sectionGoals may be documented in an alternate sectionGoals may be documented in an alternate sectionGoals may be documented in an alternate section Care Teams (unrecognized sec tion and content) Change Booth Attendant Relationship Specialty Start Date End Date Joanne Arnold MD [address] [place] [address] PCP - General Family Medicine 12/19/15 Change Booth Attendant Relationship Specialty Start Date End Date Joanne Arnold MD [address] [facility] [address] [place] [address] PCP - General Family Medicine 12/19/15 Change Booth Attendant Relationship Specialty Start Date End Date Joanne Arnold MD [address] [facility] [address] [place] [address] PCP - General Family Medicine 12/19/15 Change Booth Attendant Relationship Specialty Start Date End Date Joanne Arnold MD [address] [facility] [address] [place] [address] PCP - General Family Medicine 12/19/15 Change Booth Attendant Relationship Specialty Start Date End Date Joanne Arnold MD [address] [facility] [address] [place] [address] PCP - General Family Medicine 12/19/15 Change Booth Attendant Relationship Specialty Start Date End Date Joanne Arnold MD [address] [facility] [address] [place] [address] PCP - General Family Medicine 12/19/15 Change Booth Attendant Relationship Specialty Start Date End Date Joanne Arnold MD [address] [place] [address] PCP - General Family Medicine 12/19/15 Change Booth Attendant Relationship Specialty Start Date End Date Joanne Arnold MD [address] [place] [address] PCP - General Family Medicine 12/19/15 Change Booth Attendant Relationship Specialty Start Date End Date Joanne Arnold MD [address] [place] [address] PCP - General Family Medicine 12/19/15 Change Booth Attendant Relationship Specialty Start Date End Date Joanne Arnold MD [address] [facility] [address] [place], [place] [address] [phone] PCP - General Family Medicine 12/19/15 Change Booth Attendant Relationship Specialty Start Date End Date Joanne Arnold MD [address] [facility] [address] [place] [address] PCP - General Family Medicine 12/19/15 Change Booth Attendant Relationship Specialty Start Date End Date Joanne Arnold MD [address] [place] [address] PCP - General Family Medicine 03/08/22 Change Booth Attendant Relationship Specialty Start Date End Date Joanne Arnold MD [address] [place] [phone] PCP - General Family Medicine 03/08/22 Change Booth Attendant Relationship Specialty Start Date End Date Joanne Arnold MD [address] [facility] [address] [place] [address] PCP - General Family Medicine 12/19/15 Change Booth Attendant Relationship Specialty Start Date End Date Joanne Arnold MD [address] [place] [phone] PCP - General Family Medicine 03/08/22 Change Booth Attendant Relationship Specialty Start Date End Date Joanne Arnold MD [address] [address] PCP - General Family Medicine 03/08/22 Change Booth Attendant Relationship Specialty Start Date End Date Joanne Arnold MD [address] [place] [address] PCP - General Family Medicine 03/08/22 Change Booth Attendant Relationship Specialty Start Date End Date Joanne Arnold MD [address] [place] [address] PCP - General Family Medicine 03/08/22 Change Booth Attendant Relationship Specialty Start Date End Date Joanne Arnold MD [address] [place] [phone] PCP - General Family Medicine 03/08/22 Change Booth Attendant Relationship Specialty Start Date End Date Joanne Arnold MD [address] [facility] [address] [place], [place] [phone] PCP - General Family Medicine 12/19/15 Change Booth Attendant Relationship Specialty Start Date End Date Joanne Arnold MD [address] [place] [address] PCP - General Family Medicine 12/19/15 Change Booth Attendant Relationship Specialty Start Date End Date Joanne Arnold MD [address] [facility] [address] [place] [address] PCP - General Family Medicine 12/19/15 Change Booth Attendant Relationship Specialty Start Date End Date Joanne Arnold MD [address] [place] [address] PCP - General Family Medicine 12/19/15 Change Booth Attendant Relationship Specialty Start Date End Date Joanne Arnold MD [address] [place] [phone] PCP - General Family Medicine 03/08/22 Change Booth Attendant Relationship Specialty Start Date End Date Joanne Arnold MD [address] [place], [place] [address] [phone] PCP - General Family Medicine 12/19/15 Change Booth Attendant Relationship Specialty Start Date End Date Joanne Arnold MD [address] [place] [phone] PCP - General Family Medicine 03/08/22 Change Booth Attendant Relationship Specialty Start Date End Date Joanne Arnold MD [address] [place] [phone] PCP - General Family Medicine 03/08/22 Change Booth Attendant Relationship Specialty Start Date End Date Joanne Arnold MD [address] [facility] [address] [place], [place] [phone] PCP - General Family Medicine 12/19/15 Change Booth Attendant Relationship Specialty Start Date End Date Joanne Arnold MD [address] [facility] [address] [place] [address] PCP - General Family Medicine 12/19/15 Change Booth Attendant Relationship Specialty Start Date End Date Joanne Arnold MD [address] [facility] [address] [place], [place] [phone] PCP - General Family Medicine 12/19/15 Team Status: Active Member Role Status Dates Dr. Joanne Arnold MD Family Provider Active Dr. Joanne Arnold MD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 Provider Active Team Status: Inactive Member Role Status Dates Dr. Joanne Arnold MD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 Provider, Referrin g Provider Active Julio Horn BIOLOGICAL AIDE, BIOLOGICAL AIDE-C Attending Provider Active Team Status: Inactive Member Role Status Dates Dr. Joanne Arnold MD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 Prov ider, Attending Provider, Referring Provider Active Team Status: Inactive Member Role Status Dates Dr. Joanne Arnold MD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 Provider Active Hollie Fair , BIOLOGICAL AIDE-C Attending Provider, Referring Pro vider Active Change Booth Attendant Relationship Specialty Start Date End Date Joanne Arnold MD [address] [facility] [address] [place] [address] PCP - General Family Medicine 12/19/15 Change Booth Attendant Relationship Specialty Start Date End Date Joanne Arnold MD [address] [facility] [address] [place] [address] PCP - General Family Medicine 12/19/15 Change Booth Attendant Relationship Specialty Start Date End Date Joanne Arnold MD [address] [place] [address] PCP - General Family Medicine 03/08/22 Change Booth Attendant Relationship Specialty Start Date End Date Joanne Arnold MD [address] [facility] [address] [place] [address] PCP - General Family Medicine 12/19/15 Change Booth Attendant Relationship Specialty Start Date End Date Joanne Arnold MD [address] [place] [address] PCP - General Family Medicine 03/08/22 Team Status: Inactive Member Role Status Dates Dr. Joanne Arnold MD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 Provider Active DARWIN MART Attending Provider, Referring Pr oviddwayne Active Change Booth Attendant Relationship Specialty Start Date End Date Joanne Arnold MD [address] [facility] [address] [place] [address] PCP - General Family Medicine 12/19/15 Change Booth Attendant Relationship Specialty Start Date End Date Joanne Arnold MD [address] [facility] [address] [place] [address] PCP - General Family Medicine 12/19/15 Change Booth Attendant Relationship Specialty Start Date End Date Joanne Arnold MD [address] [place] [phone] PCP - General Family Medicine 03/08/22 Change Booth Attendant Relationship Specialty Start Date End Date Joanne Arnold MD [address] [place] [address] PCP - General Family Medicine 03/08/22 Change Booth Attendant Relationship Specialty Start Date End Date Joanne Arnold MD [address] [facility] [address] [place], [place] [phone] PCP - General Family Medicine 12/19/15 Change Booth Attendant Relationship Specialty Start Date End Date Joanne Arnold MD [address] [facility] [address] [place] [address] PCP - General Family Medicine 12/19/15 Team Status: Active Member Role Status Dates Dr. Joanne Aronld MD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 Provider Active Team Status: Inactive Member Role Status Dates Dr. Joanne Arnold MD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 Provider Active Start: May 24, 2024 End: May 24, 2024 Dr. Sara Granados DO Attending Provider Active St art: May 24, 2024 End: May 24, 2024 Dr. Sara Granados DO Referring Provider Active St art: May 24, 2024 End: May 24, 2024 Team Status: Inactive Member Role Status Dates Dr. Joanne Arnold MD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 Provider Active Start: August 06, 2024 End: August 06, 2024 Dr. Sara Granados DO Attending Provider Active St art: August 06, 2024 End: August 06, 2024 Dr. Sara Granados DO Referring Provider Active St art: August 06, 2024 End: August 06, 2024 Team Status: Inactive Member Role Status Dates Dr. Joanne Arnold MD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 Provider Active Start: August 19, 2024 End: August 19, 2024 LARRY Block Attending Provider Active Start : August 19, 2024 End: August 19, 2024 LARRY Block Referring Provider Active Start : August 19, 2024 End: August 19, 2024 Team Status: Inactive Member Role Status Dates Dr. Joanne Arnold MD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 Provider Active Start: August 31, 2024 End: August 31, 2024 Dr. Sara Granados DO Attending Provider Active St art: August 31, 2024 End: August 31, 2024 Dr. Sara Granados DO Referring Provider Active St art: August 31, 2024 End: August 31, 2024 Team Status: Inactive Member Role Status Dates Dr. Joanne Arnold MD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 Provider Active Start: October 06, 2024 End: October 06, 2024 ELAYNE Bales Attending Provider Active St art: October 06, 2024 End: October 06, 2024 ELAYNE Bales Referring Provider Active St art: October 06, 2024 End: October 06, 2024 Reason for Visit (unrecogniz ed section and content) Reason Onset Date Comments Medication Refill 12/17/2021 Reason Comments Physical Therapy Specialty Diagnoses / Procedures Referred By Contac t Referred To Contact Rehabilitation Diagnoses Right hip pain Osteoarthritis of cervical spine with myelopathy Bilateral occipital neuralgia Andrea Ewing MD [address] [place] [address] [phone] Referral ID Status Reason Start Date Expiration Date V isits Requested Visits Authorized [id number] Authorized 12/25/2021 12/25/2022 12 199 Specialty Diagnoses / Procedures Referred By Contac t Referred To Contact Rehabilitation Diagnoses Right hip pain Osteoarthritis of cervical spine with myelopathy Bilateral occipital neuralgia Andrea Ewing MD [address] [place] [address] [facility] [address] [place] [phone] Reason Comments Pain Specialty Diagnoses / Procedures Referred By Contac t Referred To Contact Diagnoses Primary osteoarthritis of right hip Michaela Alarcon MD [address] [place] [address] Referral ID Status Reason Start Date Expiration Date V isits Requested Visits Authorized [id number] Pending Review 02/07/2022 03/04/2023 1 1 Specialty Diagnoses / Procedures Referred By Contac t Referred To Contact Diagnoses Primary osteoarthritis of right hip Procedures XR [facility] Michaela Alarcon MD [address] [place] [address] Referral ID Status Reason Start Date Expiration Date V isits Requested Visits Authorized [id number] New Request 03/08/2022 04/02/2023 1 1 Reason Onset Date Comments Medication Refill 03/14/2022 Reason Comments Follow-up Specialty Diagnoses / Procedures Referred By Contac t Referred To Contact Diagnoses Hx of total hip arthroplasty, right Procedures XR HIP WITH PELVIS RIGHT Ghanshyam Liu APRN-CNP [address] [place] [address] Referral ID Status Reason Start Date Expiration Date V isits Requested Visits Authorized [id number] New Request 06/28/2022 07/23/2023 1 1 Reason [...] WITH PELVIS RIGHT Bradford Hussein MD [address] [place] [address] Referral ID Status Reason Start Date Expiration Date V isits Requested Visits Authorized [id number] New Request 10/11/2022 11/05/2023 1 1 Reason Onset Date Comments Medication Refill 01/07/2023 Reason Onset Date Comments Medication Refill 02/10/2023 Reason Onset Date Comments Medication Refill 03/31/2023 Specialty Diagnoses / Procedures Referred By Contac t Referred To Contact Diagnoses Right hip pain Procedures XR HIP WITH PELVIS RIGHT Bradford Hussein MD [address] [place] [address] Referral ID Status Reason Start Date Expiration Date V isits Requested Visits Authorized [id number] New Request 06/13/2023 07/07/2024 1 1 Reason Comments IV Medication Specialty Diagnoses / Procedures Referred By Contac t Referred To Contact Diagnoses Osteoporosis with current pathological fracture with routine healing, unspecified osteoporosis type, subsequent encounter Procedures LA INJECTION, ZOLEDRONIC ACID, 1 MG Darwin, Sara Lobo, DO [address] [place] [address] [facility] [address] [place] [address] Referral ID Status Reason Start Date Expiration Date V isits Requested Visits Authorized [id number] Authorized 06/09/2023 09/08/2023 1 1 Reason Onset Date Comments Medication Refill 08/05/2023 Reason Onset Date Comments Medication Refill 11/18/2023 Reason Comments Pain Specialty Diagnoses / Procedures Referred By Contac t Referred To Contact Diagnoses Hip pain, unspecified laterality Procedures XR HIP WITH PELVIS RIGHT Bradford Hussein MD [address] [place] [address] Referral ID Status Reason Start Date Expiration Date V isits Requested Visits Authorized [id number] New Request 11/28/2023 12/22/2024 1 1 Reason Onset Date Comments Medication Refill 02/26/2024 Reason Onset Date Comments Medication Refill 05/05/2024 Reason Onset Date Comments Medication Refill 05/24/2024 Reason Onset Date Comments Medication Refill 07/16/2024 Reason Onset Date Comments Medication Refill 10/27/2024 Care Team (unrecognized sect ion and content) Care Team Personnel Name: JOANNE ARNOLD MD Member Role: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 Physician Address: Address: [address] [place], [place] [address] Scheduled Active and Recently Administ ered Medications (unrecognized section and content) Medication Order 06/17/2022 06/18/2022 06/19/2022 acetaminophen (TYLENOL) tablet 1,000 mg (COMPLETED) 1,000 mg, Oral, ONCE, 1 dose, On Fri06/18/22 at 0700, Administer 1 hour preop., Pre-op/Pre-Proc 712 (Given - Provider: Summer Bellamy RN) Amitriptyline (ELAVIL) tablet 50 mg 50 mg, Oral, DAILY AT BEDTIME, First dose on Fri06/19/22 at 2100, Until Discontinued apixaban (ELIQUIS) tablet 2.5 mg 2.5 mg, Oral, EVERY 12 HOURS, First dose on Fri06/19/22 at 0900, Until Discontinued, Start in AM day after surgery, Indications: Venous Thromboembolism, Post-op/Post-Proc 0954 (Given - Provid er: Renata Kenney LPN) ceFAZolin (ANCEF) 2 g in dextrose 100 mL premix IVPB (COMPLETED) 2 g, Intravenous, Administer over 30 Minutes, EVERY 8 HOURS NON-STANDARD, 3 doses, First dose on Fri06/18/22 at 1600, Last dose on Fri06/19/22 at 0800, Post-op/Post-Proc 1650 ($$New Bag$$ - Provider: Virginia Miranda RN)2327 ($$New Bag$$ - Provider: Aretha Cook RN) 0459 (Rate/Dose Verify - Provider: Aretha Cook RN)0956 ($$New Bag$$ - Provider: Renata Kenney LPN) Celecoxib (CELEBREX) capsule 200 mg (COMPLETED) 200 mg, Oral, ONCE, 1 dose, On Fri06/18/22 at 0700, Administer 2 hours preop., Pre-op/Pre-Proc 712 (Given - Provider: Summer Bellamy RN) dexAMETHasone (DECADRON) injection 10 mg (COMPLETED) 10 mg, Intravenous, EVERY 24 HOURS, 1 dose, First dose on Fri06/19/22 at 1045, 24 hours post op, Post-op/Post-Proc 1010 (Given - Provid er: Treva Dugan RN) Docusate (COLACE) capsule 100 mg 100 mg, Oral, 2 TIMES DAILY, First dose on Fri06/18/22 at 1045, Until Discontinued, Post-op/Post-Proc 1045 (Canceled Entry - Provider: System Discharge - Comment: Automatically canceled at discontinue of medication order)1650 (Given - Provider: Virginia Miranda RN) 0954 (Given - Provider: Renata Kenney LPN) Losartan (COZAAR) tablet 12.5 mg 12.5 mg, Oral, DAILY, First dose on Fri06/19/22 at 0900, Until Discontinued 0954 (Given - Provid er: Renata Kenney LPN) midodrine (ProAmatine) tablet 10 mg (COMPLETED) 10 mg, Oral, ONCE, 1 dose, On Fri06/18/22 at 1330, 1340 (Given - Provider: Laxmi Gonzalez RN) midodrine (ProAmatine) tablet 5 mg (COMPLETED) 5 mg, Oral, ONCE, 1 dose, On Fri06/18/22 at 1230, 1200 (Given - Provider: Laxmi Gonzalez RN) Pantoprazole (PROTONIX) tablet DR 40 mg 40 mg, Oral, DAILY, First dose on Fri06/19/22 at 0900, Until Discontinued, Swallow whole; do not crush or chew., Indications: Inpt Stress Ulcer Prophylaxis 0954 (Given - Provid er: Renata Kenney LPN) pregabalin (LYRICA) capsule 25 mg 25 mg, Oral, 2 TIMES DAILY, First dose on Fri06/19/22 at 0900, Until Discontinued 0953 (Given - Provid er: Renata Kenney LPN) Propranolol (INDERAL) tablet 20 mg 20 mg, Oral, 2 TIMES DAILY, First dose on Fri06/19/22 at 0900, Until Discontinued, 0954 (Given - Provid er: Renata Kenney LPN) Ropivacaine (NAROPIN) 1 % 400 mg, EPINEPHrine PF (ADRENALIN) 1 MG/ML 1 mg, Ketorolac (TORADOL) 30 MG/ML 30 mg, cloNIDine 100 MCG/ML 123 mcg, Sodium chloride 0.9% 45 mL 88.23 mL (total volume) (COMPLETED) Intra-articular, INTRA-OP ONCE, 1 dose, Starting on Fri06/18/22 at 0900, Until Discontinued, 88.23 mL, To be mixed by pharmacy NOT for IV use, Intra-op/Intra-Proc 0902 (Given - Provider: Shama Tong RN) tranexamic acid (LYSTEDA) tablet 1,950 mg (COMPLETED) 1,950 mg, Oral, ONCE, 1 dose, On Fri06/18/22 at 0700, Administer 2 hours preop, Pre-op/Pre-Proc 0713 (Given - Provider: Summer Bellamy RN) Continuous Medication Order 06/17/2022 06/18/2022 06/19/2022 Sodium chloride 0.9% IV solution (CANCELED) Intravenous, at 100 mL/hr, CONTINUOUS, Starting on Fri06/18/22 at 0700, Until Fri06/18/22 at 1633, Pre-op/Pre-Proc 0719 ($$New Bag$$ - Provider: Summer Bellamy RN)0954 ($$New Bag$$ - Provider: Kodi Cox, CHEESE WRAPPER-MULTIMEDIA TECHNICIAN)1020 ($$New Bag$$ - Provider: Laxmi Gonzalez RN - Comment: Order per Godwin MULTIMEDIA TECHNICIAN to given a fluid bolus) Sodium chloride [...] 2 g, Intravenous, Administer over 30 Minutes, TOMATO PULPER OPERATOR TO PROCEDURE, 1 dose, Starting on Fri06/18/22 at 0649, Until Fri06/18/22 at 0833, Other, Pre-operative antibiotic, For 15 Minutes, Pre-op/Pre-Proc 0818 (Given - Provider: Kodi Cox, CHEESE WRAPPER-MULTIMEDIA TECHNICIAN) hydroCODone-acetaminophen (NORCO) 5-325 MG per tablet 1-2 [...] BE BASED ON THE PRIMARY CLINICAL RECORDS. [email or web address] provides no warranty or guarantee of the accuracy or completeness of information in this document.
== END | disposition home or self-care (01) ==
LOC: OPBI 09:59
PROVIDERS: PCP Nurse Practitioner Family; Referring Provider Nurse Practitioner Family; Visit Provider Nurse Practitioner Family
DX: Z12.31 Encounter for screening mammogram for malignant neoplasm of breast (principal)
CPT/HCPCS: 77063; 77067

== ENCOUNTER → 2025-01-27 | Outpatient (CLI) | payer MEDICARE, OTHER, SELFPAY ==
[2025-01-27 13:03] LABS: AST(SGOT) 33 U/L (<=31); Alanine Aminotransfer ALT/SGPT 27 U/L (<=34); Albumin, Serum 3.9 g/dL (3.4-4.8); Alkaline Phosphatase 68 U/L (35-104); Bilirubin, Direct 0.10 mg/dL (0.00-0.30); CRP < 3.00 mg/L (0.0-3.0); Globulin 2.3 g/dL (2.2-4.2)
== END | disposition home or self-care (01) ==
PROVIDERS: PCP Nurse Practitioner Family; Referring Provider Student in an Organized Health Care Education/Training Program; Visit Provider Student in an Organized Health Care Education/Training Program
DX: Z79.891 Long term (current) use of opiate analgesic (principal)
CPT/HCPCS: 36415; 80076; 82565; 85652; 86140

== ENCOUNTER → 2025-02-16 | Outpatient (CLI) | payer MEDICARE, OTHER, SELFPAY ==
[2025-02-16 17:49] LABS: Hematocrit 43.2 % (37-47); Hemoglobin 14.2 g/dL (12.0-15.0); Immature Granulocytes Count 0.020 X10^3/uL (0.0-0.0); Mean Corp Hgb Conc 32.9 g/dL (32-36); Mean Corpuscular Volume 87.8 fL (81-99); Mean Platelet Vol. 11.0 fl (6.2-12.0); NRBC Flagged by Analyzer 0 % (0-5); Platelet Count 235 K/mm3 (150-450); RBC Distribution Width CV 15.3 % (11.6-14.6); RBC Distribution Width SD 48.9 fl (35.1-43.9); Red Blood Count 4.92 M/mm3 (4.2-5.4); White Blood Count 6.5 K/mm3 (4.4-11.0)
== END | disposition home or self-care (01) ==
LOC: MTLAB 15:15
PROVIDERS: PCP Nurse Practitioner Family; Referring Provider Student in an Organized Health Care Education/Training Program; Visit Provider Student in an Organized Health Care Education/Training Program
DX: D64.9 Anemia, unspecified (principal)
CPT/HCPCS: 36415; 85025

== ENCOUNTER → 2025-02-24 | Outpatient (CLI) | payer MEDICARE, OTHER, SELFPAY ==
--- NOTE | 2025-02-24 08:56 | BD_ITS ---
PROCEDURE: DEXA BONE DENSITY STUDY 02/24/2025 REASON FOR EXAM: F, age 70 y/o . Postmenopausal. TECHNIQUE: DEXA BONE DENSITY STUDY COMPARISON: Prior study dated March 27, 2017. FINDINGS: BMD and T-SCORES Lumbar spine: 0.964 g/cm2, T-score -0.8 Levels: L1 through L4 Change from prior: Improvement of 6.6%. Left femoral neck: 0.583 g/cm2, T-score -2.4 Femoral neck comparison data not recommended for monitoring change. Left total hip: 0.618 g/cm2, T-score -2.7 Change from prior: Loss of 8.7%. The World Health Organization has defined the following categories based on bone density: Normal bone density: T-score equal to or greater than -1.0 Osteopenia: T-score between -1.0 and -2.5 Osteoporosis: T-score equal to or less than -2.5 FRAX (or Comparable) Fracture Risk Assessment: 10 Year Probability of Fracture: Major Osteoporotic Fracture: 18% Hip Fracture: 4.5% (Note: FRAX is not to be reported in setting of normal range bone density, osteoporosis on DEXA, known history of osteoporosis, prior osteoporotic hip or vertebral fracture, or for any patient undergoing pharmacological treatment for bone loss.) The National Osteoporosis Foundation (NOF) recommends pharmacological treatment for patients with a FRAX 10-year risk of 3% or higher for a hip fracture, or 20% or higher for a major osteoporotic fracture, to prevent osteoporosis and reduce fracture risk. The patient does meet the pharmacological treatment recommendations for prevention of osteoporosis. BD/Dexa Bone Density Study IMPRESSION: OSTEOPOROSIS. Recommend follow-up as clinically warranted. Reading Location: [facility]
== END | disposition home or self-care (01) ==
LOC: OPBD 08:55
PROVIDERS: PCP Nurse Practitioner Family; Referring Provider Student in an Organized Health Care Education/Training Program; Visit Provider Student in an Organized Health Care Education/Training Program
DX: M81.0 Age-related osteoporosis without current pathological fracture (principal)
CPT/HCPCS: 77080

== ENCOUNTER → 2025-04-06 | Outpatient (CLI) | payer MEDICARE, OTHER, SELFPAY ==
--- NOTE | 2025-04-06 13:14 | NEURO ---
NCS and/or EMG Patient Report Ordering Doctor: Paige Valladares DATE OF SERVICE: 04/06/25 Heidi presents with complaints of numbness and tingling, most prominent in the 4th and 5th digits of the right hand. Electrodiagnostic findings: Right median motor nerve demonstrates prolonged distal latency with normal amplitude and reduced conduction velocity. Left median motor nerve demonstrates normal distal latency and amplitude with borderline reduced conduction velocity. Right ulnar motor nerve demonstrates normal distal latency and amplitude with a drop in conduction across the elbow. Left ulnar motor response within normal limits. Prolonged right median sensory latency at the wrist. Normal median ulnar F–waves. Needle EMG testing was performed in the upper limbs. All muscles tested showed no evidence of denervation with normal motor unit potentials. Electrodiagnostic impression: This is an abnormal study. 1. Electrodiagnostic findings suggestive of right sided median mononeuropathy. This consistent with a mild right carpal tunnel syndrome. 2. Electrodiagnostic findings suggestive of right sided ulnar neuropathy, consistent with a moderate right cubital tunnel syndrome. 3. No electrodiagnostic evidence is noted for cervical radiculopathy. Multi Select Codes Neurology Neurology Interp Codes: 01296-48 Musc test done w/n test comp (interp) (2) and 82938-56 Nrv cndj test 13/> studies (interp)
== END | disposition home or self-care (01) ==
PROVIDERS: PCP Nurse Practitioner Family; Referring Provider Clinical Nurse Specialist Adult Health; Visit Provider Clinical Nurse Specialist Adult Health
DX: M50.30 Other cervical disc degeneration, unspecified cervical region (principal); M48.02 Spinal stenosis, cervical region
CPT/HCPCS: 95886; 95912

== ENCOUNTER → 2025-05-02 | Outpatient (CLI) | payer MEDICARE, OTHER, SELFPAY ==
[2025-05-02 14:31] LABS: Hematocrit 42.1 % (37-47); Hemoglobin 14.0 g/dL (12.0-15.0); Immature Granulocytes Count 0.010 X10^3/uL (0.0-0.0); Mean Corp Hgb Conc 33.3 g/dL (32-36); Mean Corpuscular Volume 90.7 fL (81-99); Mean Platelet Vol. 10.6 fl (6.2-12.0); NRBC Flagged by Analyzer 0 % (0-5); Platelet Count 213 K/mm3 (150-450); RBC Distribution Width CV 14.4 % (11.6-14.6); RBC Distribution Width SD 47.9 fl (35.1-43.9); Red Blood Count 4.64 M/mm3 (4.2-5.4); White Blood Count 5.6 K/mm3 (4.4-11.0)
== END | disposition home or self-care (01) ==
LOC: LAB 13:35
PROVIDERS: PCP Nurse Practitioner Family; Referring Provider Student in an Organized Health Care Education/Training Program; Visit Provider Student in an Organized Health Care Education/Training Program
DX: D64.9 Anemia, unspecified (principal)
CPT/HCPCS: 36415; 85025

== ENCOUNTER → 2025-05-18 | Outpatient (CLI) | payer MEDICARE, OTHER, SELFPAY ==
[2025-05-18 18:17] LABS: AST(SGOT) 39 U/L (<=31); Alanine Aminotransfer ALT/SGPT 28 U/L (<=34); Albumin, Serum 4.4 g/dL (3.4-4.8); Alkaline Phosphatase 62 U/L (35-104); Bilirubin, Direct 0.14 mg/dL (0.00-0.30); Globulin 2.5 g/dL (2.2-4.2)
== END | disposition home or self-care (01) ==
PROVIDERS: PCP Nurse Practitioner Family; Referring Provider Student in an Organized Health Care Education/Training Program; Visit Provider Student in an Organized Health Care Education/Training Program
DX: M06.9 Rheumatoid arthritis, unspecified (principal); Z79.899 Other long term (current) drug therapy
CPT/HCPCS: 36415; 80076; 82565; 85652